=== PATIENT | male | born 1940 | race Caucasian/White ===

== ENCOUNTER 2016-08-09 17:01 | Emergency (ER) | payer SELFPAY, MEDICARE ==
[2016-08-09] MEDS ORDERED: Zofran 4 MG/2 ML VIAL IV ONE (18:22)
[2016-08-09] MEDS ORDERED: Sodium Chloride 0.9% 1000 ML 1,000 ML IV SCH (18:30)
[2016-08-09] MEDS ORDERED: SUBLIMAZE 100 MCG/2 ML IV ONE (18:30)
[2016-08-09] MEDS ORDERED: Zofran 4 MG/2 ML VIAL ONE (18:39)
[2016-08-09] MEDS ORDERED: SUBLIMAZE 100 MCG/2 ML ONE (18:40)
[2016-08-09] MEDS ORDERED: Sodium Chloride 0.9% 1000 ML 1,000 ML ONE (18:40)
[2016-08-09 18:43] LABS: BASOPHIL % 0.5 % (0.0-0.4); Eosinophil % 3.6 % (0.00-5.0); Granulocytes % 68.5 % (36.0-66.0); Lymphocytes % 21.6 % (24.0-44.0); Mean Cell Volume 89.9 fl (78-100); Mean Corpuscular Hemoglobin 29.2 pg (26-32); Mean Platelet Volume 12.2 fl (6-9.5); Monocytes % 5.8 % (0.0-12.0); Platelet Count 142 K/mm3 (150-450); Red Blood Count 3.38 M/mm3 (4.1-5.6); Red Cell Distribution Width 16.9 % (11.5-14.0); White Blood Count 6.2 K/mm3 (4.0-10.5)
[2016-08-09 19:06] LABS: ALBUMIN 3.3 g/dL (3.4-5.0); ANION GAP 12.3 MEQ/L (5-15); BILIRUBIN,TOTAL 0.2 mg/dL (0.2-1.0); Carbon Dioxide 25.1 mEq/L (21-32); Potassium 5.2 mEq/L (3.5-5.1); Total Protein 6.6 gm/dL (6.4-8.2)
[2016-08-09 19:56] LABS: Bacteria FEW /HPF (NEGATIVE); COMPLETE URINE MICROSCOPIC? YES; Collection Type CLEAN CATCH; WBC 0-2 /HPF (0-5)
--- NOTE | 2016-08-09 19:58 | ERPHSYRPT ---
- History of Present Illness Time Seen by Provider: 08/09/16 17:45 Historian: patient Exam Limitations: clinical condition Patient Subjective Stated Complaint: pt co abd pain diffuse to abd for over a week now, has seen family doc. and was dx with UTI and is on antibotics, no fever,no nausea, bm today Triage Nursing Assessment: pt walked in, alert in no distress, resp easy, skin w /d. abd distended,nontender to touch, Physician History: PATIENT COMPLAINS OF INTERMITTENT ABDOMINAL PAINS FOR MONTHS, DENIES EMESIS, NAUSEA, DIARRHEA, MELENA, FEVER OR URINARY SYMPTOMS. Timing/Duration: week(s) Activities at Onset: none Quality: cramping Abdominal Pain Onset Location: generalized abdomen Pain Radiation: no radiation Severity of Pain-Max: moderate Severity of Pain-Current: moderate Modifying Factors: Improves With: other (PAIN PILLS) Associated Symptoms: denies symptoms Previous symptoms: no prior history Allergies/Adverse Reactions: Iodinated Contrast Media - Oral and [Iodinated Contrast Media - IV Dye] Allergy (Intermediate, Verified 08/09/16 17:37) unknown- hives morphine Allergy (Intermediate, Verified 08/09/16 17:37) confusion and combative hydromorphone HCl [From Dilaudid] Adverse Reaction (Intermediate, Verified 08/09 17:37) confusion and combative oxycodone HCl [From OxyContin] Adverse Reaction (Intermediate, Verified 17:37) confusion/ combative Home Medications: Bimatoprost 0.01% [Lumigan 0.01% 2.5 ml] 2.5 ml OP HS 05/04/15 [History] Finasteride 5 mg [Proscar 5 MG] 5 mg PO DAILY 05/04/15 [History] Insulin Detemir [Levemir] 40 unit SQ QAM 05/04/15 [History] Metformin HCl 1000 mg [Glucophage 1000 MG] 1,000 mg PO BID 05/04/15 [History] Multivitamin/Iron/Folic Acid [Centrum Complete Multivit Tab] 1 each PO DAILY [History] Tamsulosin HCl 0.4 mg [Flomax 0.4 MG] 0.4 mg PO DAILY 05/04/15 [History] Warfarin Sodium 5 mg [Coumadin 5 MG] 12 mg PO UD 05/04/15 [History] Nitroglycerin 0.4 mg Tablet [Nitrostat 0.4 MG Tablet] 0.4 mg SL UD [History] Isosorbide Mononitrate 30 mg [Imdur 30 MG] 30 mg DAILY 08/09/16 [History] Hx Tetanus, Diphtheria Vaccination/Date Given: Yes (unknwon) Hx Influenza Vaccination/Date Given: No Hx Pneumococcal Vaccination/Date Given: No Immunizations Up to Date: Yes - Review of Systems Constitutional: No Fever, No Chills Eyes: No Symptoms Ears, Nose, & Throat: No Symptoms Respiratory: No Cough, No Dyspnea Cardiac: No Symptoms, No Chest Pain, No Edema, No Syncope Abdominal/Gastrointestinal: Abdominal Pain, No Nausea, No Vomiting, No Diarrhea Genitourinary Symptoms: No Symptoms, No Dysuria Musculoskeletal: No Symptoms, No Back Pain, No Neck Pain Skin: No Symptoms, No Rash Neurological: No Dizziness, No Focal Weakness, No Sensory Changes Psychological: No Symptoms Endocrine: No Symptoms All Other Systems: Reviewed and Negative - Past Medical History Pertinent Past Medical History: Yes Neurological History: Migraines ENT History: Cataracts, Glaucoma Cardiac History: Angina, Coronary Artery Disease, High Cholesterol, Hypertension , Myocardial Infarction ([place]), Peripheral Vascular Disease Respiratory History: Asthma Endocrine Medical History: Diabetes Type II Musculoskeletal History: Arthritis GI Medical History: GERD, Gallbladder Disease History: Other Psycho-Social History: Depression Male Reproductive Disorders: Prostate Problems Other Medical History: skin cancer. anemia - Past Surgical History Past Surgical History: Yes Neuro Surgical History: No Pertinent History Cardiac: CABG, Cardiac Catheterization, Cardiac Stent Respiratory: No Pertinent History Gastrointestinal: Appendectomy, Cholecystectomy Musculoskeletal: Orthopedic Surgery Male Surgical History: No Pertinent History Other Surgical History: back surgery. fem pop. steriod injection yesterday 11/18 - Social History Smoking Status: Former smoker How long have you smoked: 1975 Exposure to second hand smoke: No Drug Use: none Patient Lives Alone: Yes - Nursing Vital Signs Nursing Vital Signs: Initial Vital Signs Temperature 98.0 F Temperature Source Oral Pulse Rate 52 Respiratory Rate 16 Blood Pressure [] 150/70 Pain Intensity 0 - Physical Exam General Appearance: no apparent distress, alert Eye Exam: PERRL/EOMI, eyes nml inspection Ears, Nose, Throat Exam: normal ENT inspection, pharynx normal, moist mucous membranes Neck Exam: normal inspection, non-tender, supple, full range of motion Respiratory Exam: normal breath sounds, lungs clear, No respiratory distress Cardiovascular Exam: regular rate/rhythm, normal heart sounds Gastrointestinal/Abdomen Exam: soft, normal bowel sounds, tenderness (MILD PERIUMBILICAL TENDERNESS), other (NO GUARDING OR REBOUND TENDERNESS), No mass Back Exam: normal inspection, normal range of motion, No CVA tenderness, No vertebral tenderness Extremity Exam: normal inspection, normal range of motion, pelvis stable Neurologic Exam: alert, oriented x 3, cooperative, normal mood/affect, nml cerebellar function, sensation nml, No motor deficits Skin Exam: normal color, warm, dry SpO2 Interpretation: normal SpO2: 94 Oxygen Delivery: Room Air - CT Exams Abdomen/Pelvis CT Interpretation: Discussed w/radiologist (MODERATE FECAL STASIS, WITHOUT OBSTRUCTION, BILATERAL RENAL CYSTS,REMAINING EXAM NEGATIVE) Ordered Tests: Active Orders 24 hr Category Date Time Status IV Insertion STAT Care 08/09/16 18:22 Active ABDOMEN AND PELVIS W/0 CONTRAS [CT] Stat Exams 08/09/16 18:22 Taken AMYLASE Stat Lab 08/09/16 18:35 Completed BLOOD CULTURE Stat Lab 08/09/16 18:30 Received CBC W DIFF Stat Lab 08/09/16 18:35 Completed CMP Stat Lab 08/09/16 18:35 Completed LIPASE Stat Lab 08/09/16 18:35 Completed UA W/ MICROSCOPIC Stat Lab 08/09/16 19:27 Completed Medication Summary Generic Name Dose Route Start Last Admin Trade Name Freq PRN Reason Stop Dose Admin Sodium Chloride 1,000 mls @ 100 mls/hr 08/09/16 18:30 08/09/16 18:40 Sodium Chloride 0.9% 1000 Ml IV 09/08/16 18:29 100 mls/hr .Q10H RUTH Administration Discontinued Medications Generic Name Dose Route Start Last Admin Trade Name Freq PRN Reason Stop Dose Admin Fentanyl Citrate 100 mcg 08/09/16 18:30 08/09/16 18:40 Sublimaze 100 Mcg/2 Ml IV 08/09/16 18:31 100 mcg STAT ONE Administration Fentanyl Citrate Confirm 08/09/16 18:40 Sublimaze 100 Mcg/2 Ml Administered 08/09/16 18:41 Dose 100 mcg .ROUTE .STK-MED ONE Sodium Chloride Confirm 08/09/16 18:40 Sodium Chloride 0.9% 1000 Ml Administered 08/09/16 18:41 Dose 1,000 mls @ ud .ROUTE .STK-MED ONE Ondansetron HCl 4 mg 08/09/16 18:22 08/09/16 18:40 Zofran 4 Mg/2 Ml Vial IV 08/09/16 18:23 4 mg STAT ONE Administration Ondansetron HCl Confirm 08/09/16 18:39 Zofran 4 Mg/2 Ml Vial Administered 08/09/16 18:40 Dose 4 mg .ROUTE .STK-MED ONE Lab/Rad Data: Laboratory Result Diagrams 08/09/16 18:35 08/09/16 18:35 Laboratory Results 08/09/16 08/09/16 08/09/16 Range/Units 19:27 18:35 18:35 WBC 6.2 (4.0-10.5) K/mm3 RBC 3.38 L (4.1-5.6) M/mm3 Hgb 9.9 L (12.5-18.0) gm/dl Hct 30.4 L (42-50) % MCV 89.9 (78-100) fl MCH 29.2 (26-32) pg MCHC 32.6 (32-36) g/dl RDW 16.9 H (11.5-14.0) % Plt Count 142 L (150-450) K/mm3 MPV 12.2 H (6-9.5) fl Gran % 68.5 H (36.0-66.0) % Lymphocytes % 21.6 L (24.0-44.0) % Monocytes % 5.8 (0.0-12.0) % Eosinophils % 3.6 (0.00-5.0) % Basophils % 0.5 (0.0-0.4) % Basophils # 0.03 (0-0.4) Sodium 139 (136-145) mEq/L Potassium 5.2 H (3.5-5.1) mEq/L Chloride 107 (98-107) mEq/L Carbon Dioxide 25.1 (21-32) mEq/L Anion Gap 12.3 (5-15) MEQ/L BUN 30 H (9-20) mg/dL Creatinine 1.51 H (0.55-1.30) mg/dl Estimated GFR 48 ML/MIN Glucose 217 H (70-110) MG/DL Calcium 9.0 (8.5-10.1) mg/dL Total Bilirubin 0.2 (0.2-1.0) mg/dL AST 22 (15-37) U/L ALT 22 (12-78) U/L Alkaline Phosphatase 41 L (46-116) U/L Serum Total Protein 6.6 (6.4-8.2) gm/dL Albumin 3.3 L (3.4-5.0) g/dL Amylase 48 (25-115) U/L Lipase 179 (73-393) U/L Ur Collection Type CLEAN CATCH Urine Color YELLOW (YELLOW) Urine Appearance CLEAR (CLEAR) Urine pH 7.0 (5-6) Ur Specific Sulphur 1.015 (1.005-1.025) Urine Protein TRACE (Negative) Urine Glucose (UA) 100 (NEGATIVE) mg/dL Urine Ketones NEGATIVE (NEGATIVE) Urine Nitrite NEGATIVE (NEGATIVE) Urine Bilirubin NEGATIVE (NEGATIVE) Urine Urobilinogen 0.2 (0-1) mg/dL Urine WBC (Auto) NEGATIVE (NEGATIVE) Urine RBC (Auto) TRACE-INTACT (0-5) Saw/ul Urine Microscopic RBC 2-5 (0-2) /HPF Urine Microscopic WBC 0-2 (0-5) /HPF Urine Bacteria FEW (NEGATIVE) /HPF Specimen Received 08/09/16 1930 - Progress Progress: improved Progress Note: 08/09/16 20:51 PATIENT GIVEN IV FLUIDS, NORMAL SALINE 200ML/HR, ZOFRAN 4MG, PROTONIX 40MG IV AND FENTANYL 0.1MG IV Counseled pt/family regarding: lab results, diagnosis, need for follow-up, rad results - Departure Time of Disposition: 21:00 Departure Disposition: Home Clinical Impression: CHRONIC ABDOMINAL PAIN Condition: Stable Critical Care Time: No Critical Care Time(excluding separately billable procedures): 30-74 minutes Additional Instructions: CONTINUE NEXIUM AND ALL CURRENT MEDICATIONS PRESCRIBED. FOLLOWUP WITH YOUR FAMILY PHYSICIAN FOR EVALUATION IN 1 WEEK.
[2016-08-09 21:17] VITALS: BP 129/70; PULSE 70; O2SAT 100
--- NOTE | 2016-08-10 08:47 | XRAY ---
Indication: Abdominal pain for one week. Multiple contiguous axial images obtained through the abdomen and pelvis without contrast as ordered. Comparison: None. Lung bases demonstrates mild bibasilar dependent atelectasis and left base calcified granulomas. Heart is not enlarged. Noncontrasted stomach and bowel loops appear nonobstructed. There is moderate scattered colonic fecal debris throughout. Previous appendectomy and cholecystectomy reported. No free fluid/air. Scattered calcified splenic granulomas. A few bilateral renal cysts, largest in the left lower pole measuring 1.8 cm. Remaining liver, pancreas, spleen, adrenal glands, kidneys, ureters, and bladder appear unremarkable for noncontrast exam. Moderate aortoiliac calcifications without AAA. Visualized osseous structures intact with previous L5-S1 fusion surgery with intact posterior spinal hardware and grade 2 spondylolisthesis. Small bilateral fatty inguinal hernias. Impression: 1. Fecal stasis without obstruction. 2. No acute intra-abdominal/pelvic abnormalities on this noncontrast exam. 3. Incidental bilateral renal cysts, bilateral fatty inguinal hernias, and evidence for old granulomatous disease. CT DI 22.97
== END 2016-08-09 21:17 | disposition home or self-care (01) ==
LOC: ED 17:01
DX: R10.9 Unspecified abdominal pain (principal); G89.29 Other chronic pain; Z79.899 Other long term (current) drug therapy; Z79.01 Long term (current) use of anticoagulants; Z79.84 Long term (current) use of oral hypoglycemic drugs; E78.00 Pure hypercholesterolemia, unspecified; I10 Essential (primary) hypertension; I25.2 Old myocardial infarction
CPT/HCPCS: 36000; 36415; 74176; 80053; 81000; 82150; 83690; 85025; 87040; 96360; 96361; 96374; 96375; 99284; J2405; J3010

== ENCOUNTER 2018-08-26 08:44 | Observation (INO) | payer MEDICARE, SELFPAY ==
--- NOTE | 2018-08-26 09:40 | ERPHSYRPT ---
- History of Present Illness Time Seen by Provider: 08/26/18 09:35 Source: patient, family Exam Limitations: no limitations Patient Subjective Stated Complaint: states has not been feeling well x 3 days.. cough. low grade fever. generalized pain. states not been thinking right Triage Nursing Assessment: alert and oriented. no obvious confusion. congested cough with non productive cough. abdomen soft. denies GI or urinary problems. Physician History: 78-year-old white male sent from [facility]. Patient apparently brought to [facility] by the patient's family with complaint that the patient has been complaining of cough congestion pain in his upper legs patient apparently not felt to be tracking well by his family and thought he was confused. Patient will arrives he is alert he is oriented to August 2018 he's not sure the day he is oriented to himself and [facility]. He states he's been having a cough congestion last few days complaining of aching in the upper portion of the lower extremities. He has not had a fever no nausea no vomiting. Past medical history includes migraines, cataracts, glaucoma, angina, coronary artery disease, hyperlipidemia, high blood pressure, MA, peripheral vascular disease, asthma, diabetes type 2, arthritis, gallbladder disease, depression, prostate problems Past surgical history includes CABG, cardiac catheter, cardiac stent, appendectomy, cholecystectomy, orthopedic surgery, back surgery, Social history former smoker Timing/Duration: day(s) (3 days) Severity: moderate Modifying Factors: Improves With: nothing. Worsens With: cold therapy, eating, immobilization, medication, movement, rest, acetaminophen, ibuprofen Associated Symptoms: shortness of breath, cough, malaise, other (family states patient has been confused past several days.), No nausea, No vomiting, No abdominal pain, No heartburn, No diaphoresis, No chest pain, No fever, No headaches, No loss of appetite, No rash, No syncope, No seizure, No weakness Allergies/Adverse Reactions: Iodinated Contrast- Oral and IV Dye [Iodinated Contrast Media - IV Dye] Allergy (Intermediate, Verified 08/26/18 09:30) unknown- hives morphine Allergy (Intermediate, Verified 08/26/18 09:30) confusion and combative hydromorphone HCl [From Dilaudid] Adverse Reaction (Intermediate, Verified 08/26 09:30) confusion and combative oxycodone HCl [From OxyContin] Adverse Reaction (Intermediate, Verified 09:30) confusion/ combative Home Medications: Bimatoprost 0.01% [Lumigan 0.01% 2.5 ml] 2.5 ml OP HS 05/04/15 [History] Finasteride 5 mg [Proscar 5 MG] 5 mg PO DAILY 05/04/15 [History] Insulin Detemir [Levemir] 40 unit SQ QAM 05/04/15 [History] Metformin HCl 1000 mg [Glucophage 1000 MG] 1,000 mg PO BID 05/04/15 [History] Multivitamin/Iron/Folic Acid [Centrum Complete Multivit Tab] 1 each PO DAILY [History] Tamsulosin HCl 0.4 mg [Flomax 0.4 MG] 0.4 mg PO DAILY 05/04/15 [History] Warfarin Sodium 5 mg [Coumadin 5 MG] 12 mg PO UD 05/04/15 [History] Nitroglycerin 0.4 mg Tablet [Nitrostat 0.4 MG Tablet] 0.4 mg SL UD [History] Isosorbide Mononitrate 30 mg [Imdur 30 MG] 30 mg DAILY 08/09/16 [History] Hx Tetanus, Diphtheria Vaccination/Date Given: Yes (unknwon) Hx Influenza Vaccination/Date Given: Yes Hx Pneumococcal Vaccination/Date Given: Yes - Review of Systems Constitutional: Malaise, No Fever, No Chills, No Fatigue, No Lethargy, No Night Sweats, No Weakness Eyes: No Symptoms Ears, Nose, & Throat: Nose Congestion, No Ear Pain, No Ear Discharge, No Hearing Changes, No Tinnitus, No Nose Pain, No Nose Discharge, No Sinus Drainage , No Epistaxis, No Mouth Pain, No Mouth Swelling, No Loose Teeth, No Throat Pain , No Throat Swelling, No Hoarse, No Painful Swallowing, No Snoring, No Stridor Respiratory: Cough, Dyspnea, No Cyanosis, No Dyspnea on Exertion (HAYSE), No Stridor, No Wheezing Cardiac: No Chest Pain, No Edema, No Syncope Abdominal/Gastrointestinal: No Abdominal Pain, No Nausea, No Vomiting, No Diarrhea Genitourinary Symptoms: No Dysuria Musculoskeletal: Other (aching upper portion lower extremities past few days) Skin: No Rash Neurological: Other (family states confused past few days), No Dizziness, No Focal Weakness, No Gait Changes, No Headache, No Irritability, No Lethargy, No Paralysis, No Seizure, No Sensory Changes, No Speech Changes, No Tics, No Tremors, No Vertigo Psychological: No Symptoms Endocrine: No Symptoms All Other Systems: Reviewed and Negative - Past Medical History Pertinent Past Medical History: Yes Neurological History: Migraines ENT History: Cataracts, Glaucoma Cardiac History: Angina, Coronary Artery Disease, High Cholesterol, Hypertension , Myocardial Infarction (MA), Peripheral Vascular Disease Respiratory History: Asthma Endocrine Medical History: Diabetes Type II Musculoskeletal History: Arthritis GI Medical History: GERD, Gallbladder Disease History: Other Psycho-Social History: Depression Male Reproductive Disorders: Prostate Problems Other Medical History: skin cancer. anemia - Past Surgical History Past Surgical History: Yes Neuro Surgical History: No Pertinent History Cardiac: CABG, Cardiac Catheterization, Cardiac Stent Respiratory: No Pertinent History Gastrointestinal: Appendectomy, Cholecystectomy Musculoskeletal: Orthopedic Surgery Male Surgical History: No Pertinent History Other Surgical History: back surgery. fem pop. steriod injection yesterday 11/18 - Social History Smoking Status: Never smoker How long have you smoked: 1975 Exposure to second hand smoke: No Drug Use: none Patient Lives Alone: No - Nursing Vital Signs Nursing Vital Signs: Initial Vital Signs Temperature 98.9 F 08/26/18 09:23 Pulse Rate 84 08/26/18 09:23 Respiratory Rate 18 08/26/18 09:23 Blood Pressure 159/58 08/26/18 09:23 O2 Sat by Pulse Oximetry 98 08/26/18 09:23 Pain Scale Pain Intensity 3 - Physical Exam General Appearance: no apparent distress, alert, other (well-developed white male, alert oriented to person place month and year) Eye Exam: PERRL/EOMI, eyes nml inspection Ears, Nose, Throat Exam: normal ENT inspection, TMs normal, pharynx normal, moist mucous membranes Neck Exam: normal inspection, non-tender, supple, full range of motion Respiratory Exam: normal breath sounds, lungs clear, No respiratory distress Cardiovascular Exam: regular rate/rhythm, normal heart sounds, normal peripheral pulses, capillary refill <2 sec Gastrointestinal/Abdomen Exam: soft, normal bowel sounds, No tenderness, No mass Back Exam: normal inspection, normal range of motion, No CVA tenderness, No vertebral tenderness Extremity Exam: normal inspection, normal range of motion, pelvis stable Neurologic Exam: alert, oriented x 3, cooperative, technical support 1 software engineer II-XII nml as tested, normal mood/affect, nml cerebellar function, nml station & gait, sensation nml, No motor deficits Skin Exam: normal color, warm, dry, No rash Lymphatic Exam: No adenopathy SpO2 Interpretation: normal (98%) SpO2: 98 - Course Nursing assessment & vital signs reviewed: Yes EKG Interpreted by Me: RATE (79 bpm), Sinus Rhythm, NORMAL AXIS, Right Bundle Branch Block, Other (EKG: Sinus rhythm, 79 bpm, normal axis, complete right bundle branch block, no acute ST or T wavechanges. Compared to May 05, 2015 ) - Radiology Exams Chest X-ray Interpretation: Interpreted by me (right lower lobe atelectectasis vs pneumonia.) - CT Exams Head CT Interpretation: Tele-radiologist Report (head CT: Impression: No acute findings.) Ordered Tests: Active Orders 24 hr Category Date Time Status Probation Officer STAT Care 08/26/18 09:33 Active EKG-ER Only STAT Care 08/26/18 09:32 Active IV Insertion STAT Care 08/26/18 09:32 Active Pulse Oximetry (ED) STAT Care 08/26/18 09:32 Active CHEST 1 VIEW (PORTABLE) Stat Exams 08/26/18 09:33 Taken HEAD WITHOUT CONTRAST [CT] Stat Exams 08/26/18 09:34 Taken BLOOD CULTURE Stat Lab 08/26/18 09:50 Received CBC W DIFF Stat Lab 08/26/18 09:45 Completed CMP Stat Lab 08/26/18 09:45 Completed CULTURE,SPUTUM Stat Lab 08/26/18 09:32 Uncollected D-DIMER QUANTITATION Stat Lab 08/26/18 09:45 Completed Lactic Acid Stat Lab 08/26/18 09:32 Completed NT PRO BNP Stat Lab 08/26/18 09:45 Completed PROTIME WITH INR Stat Lab 08/26/18 09:45 Completed PTT Stat Lab 08/26/18 09:45 Completed TROPONIN Q3H Lab 08/26/18 09:45 Completed TROPONIN Q3H Lab 08/26/18 12:45 Ordered TROPONIN Q3H Lab 08/26/18 15:45 Ordered TROPONIN Q3H Lab 08/26/18 18:45 Ordered TROPONIN Q3H Lab 08/26/18 21:45 Ordered UA W/RFX UR CULTURE Stat Lab 08/26/18 11:00 Completed VENOUS BLOOD GAS Stat Lab 08/26/18 09:32 Completed Transfer Order Routine Transfer 08/26/18 Ordered Medication Summary Generic Name Dose Route Start Last Admin Trade Name Freq PRN Reason Stop Dose Admin Sodium Chloride 1,000 mls @ 100 mls/hr 08/26/18 09:45 08/26/18 09:57 Sodium Chloride 0.9% 1000 Ml IV 09/25/18 09:44 100 mls/hr .Q10H RUTH Administration Discontinued Medications Generic Name Dose Route Start Last Admin Trade Name Freq PRN Reason Stop Dose Admin Ceftriaxone Sodium/Dextrose 1 g in 50 mls @ 100 mls/hr 08/26/18 11:02 11:13 Rocephin 1 Gm-D5w 50 Ml Bag IV 08/26/18 11:31 100 ml/hr STAT STA 100 mls/hr Administration Ceftriaxone Sodium/Dextrose Confirm 08/26/18 11:09 Rocephin 1 Gm-D5w 50 Ml Bag Administered 08/26/18 11:10 Dose 1 g in 50 mls @ ud IV .STK-MED ONE Lab/Rad Data: Laboratory Result Diagrams 08/26/18 09:45 08/26/18 09:45 Laboratory Results 08/26/18 08/26/18 08/26/18 Range/Units 11:00 09:50 09:45 WBC (4.0-10.5) K/mm3 RBC (4.1-5.6) M/mm3 Hgb (12.5-18.0) gm/dl Hct (42-50) % MCV (78-100) fl MCH (26-32) pg MCHC (32-36) g/dl RDW (11.5-14.0) % Plt Count (150-450) K/mm3 MPV (6-9.5) fl Gran % (36.0-66.0) % Eos # (Auto) (0-0.5) Absolute Lymphs (auto) (1.0-4.6) Absolute Monos (auto) (0.0-1.3) Lymphocytes % (24.0-44.0) % Monocytes % (0.0-12.0) % Eosinophils % (0.00-5.0) % Basophils % (0.0-0.4) % Absolute Granulocytes (1.4-6.9) Basophils # (0-0.4) PT (8.83-12.87) SECONDS INR (0.8-3.0) APTT (24.1-36.1) SECONDS D-Dimer (215-500) ng/mL pO2/FiO2 Ratio % VBG pH (7.32-7.42) VBG pCO2 at Pat Temp (42-55) mm/Hg VBG pO2 at Pat Temp (25-40) mm/Hg VBG HCO3 (22-28) meq/L VBG O2 Sat (Val) (95-100) VBG Base Excess (-2.0-2.0) VBG Hemoglobin VBG Carboxyhemoglobin (0.0-6.9) % T HGB POC Potassium (3.5-5.1) Sodium (137-145) mmol/L Potassium (3.5-5.1) mmol/L Chloride (98-107) mmol/L Carbon Dioxide (22-30) mmol/L Anion Gap (5-15) MEQ/L BUN (9-20) mg/dL Creatinine (0.66-1.25) mg/dL Estimated GFR ML/MIN Glucose (74-106) mg/dL Lactic Acid (0.4-2.0) Calcium (8.4-10.2) mg/dL Total Bilirubin (0.2-1.3) mg/dL AST (17-59) U/L ALT (0-50) U/L Alkaline Phosphatase (38-126) U/L Troponin I < 0.012 (0.000-0.034) ng/mL NT-Pro-B Natriuret Pep (0-1800) pg/mL Serum Total Protein (6.3-8.2) g/dL Albumin (3.5-5.0) g/dL Urine Color YELLOW (YELLOW) Urine Appearance CLEAR (CLEAR) Urine pH 7.0 (5-6) Ur Specific [place] 1.014 (1.005-1.025) Urine Protein 100 (Negative) Urine Ketones NEGATIVE (NEGATIVE) Urine Blood NEGATIVE (0-5) Saw/ul Urine Nitrite NEGATIVE (NEGATIVE) Urine Bilirubin NEGATIVE (NEGATIVE) Urine Urobilinogen NEGATIVE (0-1) mg/dL Ur Leukocyte Esterase NEGATIVE (NEGATIVE) Urine WBC (Auto) NONE (0-5) /HPF Urine RBC (Auto) 0-2 (0-2) /HPF U Epithel Cells (Auto) NONE (FEW) /HPF Urine Bacteria (Auto) NONE (NEGATIVE) /HPF Urine Culture Reflexed NO (NO) Urine Glucose 150 (NEGATIVE) mg/dL Influenza Type A Ag NEGATIVE (NEGATIVE) Influenza Type B Ag NEGATIVE (NEGATIVE) RSV (PCR) NEGATIVE (Negative) 08/26/18 08/26/18 08/26/18 Range/Units 09:45 09:45 09:45 WBC 11.3 H (4.0-10.5) K/mm3 RBC 3.55 L (4.1-5.6) M/mm3 Hgb 10.4 L (12.5-18.0) gm/dl Hct 32.6 L (42-50) % MCV 91.8 (78-100) fl MCH 29.2 (26-32) pg MCHC 31.9 L (32-36) g/dl RDW 15.1 H (11.5-14.0) % Plt Count 146 L (150-450) K/mm3 MPV 12.3 H (6-9.5) fl Gran % 86.6 H (36.0-66.0) % Eos # (Auto) 0.13 (0-0.5) Absolute Lymphs (auto) 0.85 L (1.0-4.6) Absolute Monos (auto) 0.49 (0.0-1.3) Lymphocytes % 7.6 L (24.0-44.0) % Monocytes % 4.4 (0.0-12.0) % Eosinophils % 1.2 (0.00-5.0) % Basophils % 0.2 (0.0-0.4) % Absolute Granulocytes 9.76 H (1.4-6.9) Basophils # 0.02 (0-0.4) PT 38.9 H (8.83-12.87) SECONDS INR 3.30 H (0.8-3.0) APTT 41.2 H (24.1-36.1) SECONDS D-Dimer < 215 L (215-500) ng/mL pO2/FiO2 Ratio % VBG pH (7.32-7.42) VBG pCO2 at Pat Temp (42-55) mm/Hg VBG pO2 at Pat Temp (25-40) mm/Hg VBG HCO3 (22-28) meq/L VBG O2 Sat (Val) (95-100) VBG Base Excess (-2.0-2.0) VBG Hemoglobin VBG Carboxyhemoglobin (0.0-6.9) % T HGB POC Potassium (3.5-5.1) Sodium 139 (137-145) mmol/L Potassium 5.9 H (3.5-5.1) mmol/L Chloride 105 (98-107) mmol/L Carbon Dioxide 25 (22-30) mmol/L Anion Gap 13.9 (5-15) MEQ/L BUN 27 H (9-20) mg/dL Creatinine 1.80 H (0.66-1.25) mg/dL Estimated GFR 39.1 ML/MIN Glucose 291 H (74-106) mg/dL Lactic Acid (0.4-2.0) Calcium 9.2 (8.4-10.2) mg/dL Total Bilirubin 0.60 (0.2-1.3) mg/dL AST 22 (17-59) U/L ALT 20 (0-50) U/L Alkaline Phosphatase 56 (38-126) U/L Troponin I (0.000-0.034) ng/mL NT-Pro-B Natriuret Pep 590 (0-1800) pg/mL Serum Total Protein 7.2 (6.3-8.2) g/dL Albumin 4.1 (3.5-5.0) g/dL Urine Color (YELLOW) Urine Appearance (CLEAR) Urine pH (5-6) Ur Specific [place] (1.005-1.025) Urine Protein (Negative) Urine Ketones (NEGATIVE) Urine Blood (0-5) Saw/ul Urine Nitrite (NEGATIVE) Urine Bilirubin (NEGATIVE) Urine Urobilinogen (0-1) mg/dL Ur Leukocyte Esterase (NEGATIVE) Urine WBC (Auto) (0-5) /HPF Urine RBC (Auto) (0-2) /HPF U Epithel Cells (Auto) (FEW) /HPF Urine Bacteria (Auto) (NEGATIVE) /HPF Urine Culture Reflexed (NO) Urine Glucose (NEGATIVE) mg/dL Influenza Type A Ag (NEGATIVE) Influenza Type B Ag (NEGATIVE) RSV (PCR) (Negative) 08/26/18 Range/Units 09:32 WBC (4.0-10.5) K/mm3 RBC (4.1-5.6) M/mm3 Hgb (12.5-18.0) gm/dl Hct (42-50) % MCV (78-100) fl MCH (26-32) pg MCHC (32-36) g/dl RDW (11.5-14.0) % Plt Count (150-450) K/mm3 MPV (6-9.5) fl Gran % (36.0-66.0) % Eos # (Auto) (0-0.5) Absolute Lymphs (auto) (1.0-4.6) Absolute Monos (auto) (0.0-1.3) Lymphocytes % (24.0-44.0) % Monocytes % (0.0-12.0) % Eosinophils % (0.00-5.0) % Basophils % (0.0-0.4) % Absolute Granulocytes (1.4-6.9) Basophils # (0-0.4) PT (8.83-12.87) SECONDS INR (0.8-3.0) APTT (24.1-36.1) SECONDS D-Dimer (215-500) ng/mL pO2/FiO2 Ratio 21.0 % VBG pH 7.36 (7.32-7.42) VBG pCO2 at Pat Temp 42 (42-55) mm/Hg VBG pO2 at Pat Temp 32 (25-40) mm/Hg VBG HCO3 23.7 (22-28) meq/L VBG O2 Sat (Val) 69.0 L (95-100) VBG Base Excess -1.7 (-2.0-2.0) VBG Hemoglobin 11.4 VBG Carboxyhemoglobin 1.9 (0.0-6.9) % T HGB POC Potassium 5.8 H (3.5-5.1) Sodium (137-145) mmol/L Potassium (3.5-5.1) mmol/L Chloride (98-107) mmol/L Carbon Dioxide (22-30) mmol/L Anion Gap (5-15) MEQ/L BUN (9-20) mg/dL Creatinine (0.66-1.25) mg/dL Estimated GFR ML/MIN Glucose (74-106) mg/dL Lactic Acid 1.3 (0.4-2.0) Calcium (8.4-10.2) mg/dL Total Bilirubin (0.2-1.3) mg/dL AST (17-59) U/L ALT (0-50) U/L Alkaline Phosphatase (38-126) U/L Troponin I (0.000-0.034) ng/mL NT-Pro-B Natriuret Pep (0-1800) pg/mL Serum Total Protein (6.3-8.2) g/dL Albumin (3.5-5.0) g/dL Urine Color (YELLOW) Urine Appearance (CLEAR) Urine pH (5-6) Ur Specific [place] (1.005-1.025) Urine Protein (Negative) Urine Ketones (NEGATIVE) Urine Blood (0-5) Saw/ul Urine Nitrite (NEGATIVE) Urine Bilirubin (NEGATIVE) Urine Urobilinogen (0-1) mg/dL Ur Leukocyte Esterase (NEGATIVE) Urine WBC (Auto) (0-5) /HPF Urine RBC (Auto) (0-2) /HPF U Epithel Cells (Auto) (FEW) /HPF Urine Bacteria (Auto) (NEGATIVE) /HPF Urine Culture Reflexed (NO) Urine Glucose (NEGATIVE) mg/dL Influenza Type A Ag (NEGATIVE) Influenza Type B Ag (NEGATIVE) RSV (PCR) (Negative) - Progress Progress: improved Progress Note: 08/26/18 10:46 78-year-old white male who arrives with complaint of cough can just rodgers confusion bilateral upper leg pain symptoms for 3 days. Patient with stable vital signs, he is oriented to person place and month Patient with EKG which shows a paced rhythm 79 bpm chest x-ray shows right lower lobe atelectasis versus infiltrate Patient with white blood cell 11.3 hemoglobin 10.4 hematocrit 32.6 platelets 146 Patient is on Coumadin patient's d-dimer is less than 215 INR is 3.3. Patient does show sodium of 139 potassium 5.9 chloride 105 bicarbonate 25 BUN 27 creatinine 1.8 glucose 291 CBC white blood cell 11.3 hemoglobin 10.4 hematocrit 32.6 platelets 146 Patient's lactate is 1.3 BNP is within normal limits Troponin less than 0.012 Patient has not as yet provided us with a urine head CT is pending. I've discussed patient's case with Dr. Higgins. Will review patient's head CT when it is available,. Dr. Higgins has asked that we obtain a urine and then begin the patient on IV antibiotics to treat the patient for pneumonia continue IV normal saline. Will place patient on medical observation bed telemetry. IV normal saline. And plan on a repeat potassium at 3 PM. Impression 1. confusion 2. Pneumonia 3. Hyperkalemia 08/26/18 11:09 Patient will be placed on Rocephin for his pneumonia. Zithromax is held at this time secondary to patient being on Coumadin. - Departure Time of Disposition: 11:41 Departure Disposition: Observation Clinical Impression: Confusion, Hyperkalemia Pneumonia Qualifiers: Pneumonia type: due to unspecified organism Laterality: right Lung location: lower lobe of lung Qualified Code(s): J18.1 - Lobar pneumonia, unspecified organism Condition: Fair Critical Care Time: No Referrals: MICHELLE MISHRA MD [Primary Care Provider] -
[2018-08-26] MEDS ORDERED: Sodium Chloride 0.9% 1000 ML 1,000 ML ONE (09:44)
[2018-08-26 09:48] LABS: Lactic Acid 1.3 (0.4-2.0); VBG BASE EXCESS -1.7 (-2.0-2.0); VBG CARBOXYHEMOGLOBIN 1.9 % T HGB (0.0-6.9); VBG HCO3- 23.7 meq/L (22-28); VBG HEMOGLOBIN 11.4; VBG POTASSIUM 5.8 (3.5-5.1); VBG pH 7.36 (7.32-7.42)
[2018-08-26] MEDS: Sodium Chloride 0.9% 1000 ML 1,000 ML IV SCH ×2 (09:57→20:18)
[2018-08-26 10:05] LABS: BASOPHIL % 0.2 % (0.0-0.4); Basophil (Absolute #) 0.02 (0-0.4); Eosinophil % 1.2 % (0.00-5.0); Eosinophil (Absolute #) 0.13 (0-0.5); Granulocyte Absolute (ANC) 9.76 (1.4-6.9); Granulocytes % 86.6 % (36.0-66.0); Hematocrit 32.6 % (42-50); Hemoglobin 10.4 gm/dl (12.5-18.0); Lymphocyte (Absolute #) 0.85 (1.0-4.6); Lymphocytes % 7.6 % (24.0-44.0); Mean Cell Volume 91.8 fl (78-100); Mean Corpuscular Hgb Concent. 31.9 g/dl (32-36); Mean Platelet Volume 12.3 fl (6-9.5); Monocyte (Absolute #) 0.49 (0.0-1.3); Monocytes % 4.4 % (0.0-12.0); Platelet Count 146 K/mm3 (150-450); Red Blood Count 3.55 M/mm3 (4.1-5.6); Red Cell Distribution Width 15.1 % (11.5-14.0); White Blood Count 11.3 K/mm3 (4.0-10.5)
[2018-08-26 10:17] LABS: PROTIME 38.9 SECONDS (8.83-12.87)
[2018-08-26 10:19] LABS: PTT 41.2 SECONDS (24.1-36.1)
[2018-08-26 10:22] LABS: D-DIMER QUANTITATION < 215 ng/mL (215-500); Mean Corpuscular Hemoglobin 29.2 pg (26-32)
[2018-08-26 10:26] LABS: INFLUENZA A NEGATIVE (NEGATIVE); INFLUENZA B NEGATIVE (NEGATIVE); RESPIRATORY SYNCTIAL VIRUS NEGATIVE (Negative)
[2018-08-26 10:30] LABS: ALBUMIN 4.1 g/dL (3.5-5.0); ANION GAP 13.9 MEQ/L (5-15); BILIRUBIN,TOTAL 0.6 mg/dL (0.2-1.3); Calcium 9.2 mg/dL (8.4-10.2); Creatinine 1 1.8 mg/dL (0.66-1.25); Potassium 5.9 mmol/L (3.5-5.1); Total Protein 7.2 g/dL (6.3-8.2)
[2018-08-26] MEDS ORDERED: ROCEPHIN 1 Gm-D5w 50 ml Bag** 1 G/50 ML IVPB IV STA (11:02)
[2018-08-26] MEDS ORDERED: ROCEPHIN 1 Gm-D5w 50 ml Bag** 1 G/50 ML IVPB IV ONE (11:09)
[2018-08-26 11:23] LABS: Appearance CLEAR (CLEAR); Bilirubin NEGATIVE (NEGATIVE); Blood NEGATIVE Ery/ul (0-5); Glucose 150 mg/dL (NEGATIVE); Ketones NEGATIVE (NEGATIVE); Leukocyte Esterase NEGATIVE (NEGATIVE); Nitrite NEGATIVE (NEGATIVE); Protein,Urine Dip 100 (Negative); RBC 0-2 /HPF (0-2); Specific Gravity 1.014 (1.005-1.025); Urobilinogen NEGATIVE mg/dL (0-1)
[2018-08-26] MEDS ORDERED: DUONEB 0.5-3 MG/3 ml Neb IH PRN (12:22)
[2018-08-26] MEDS ORDERED: Sodium Chloride 0.9% 1000 ML 1,000 ML IV SCH (12:22)
[2018-08-26] MEDS: NovoLOG Insulin SQ PRN ×2 (13:32→17:32)
[2018-08-26] MEDS ORDERED: Norco 10/325 MG Tablet PO PRN (15:24)
[2018-08-26] MEDS ORDERED: Nitrostat 0.4 MG Tablet SL PRN (15:30)
[2018-08-26 16:26] LABS: Potassium 4.7 mmol/L (3.5-5.1)
[2018-08-26 16:35] LABS: TROPONIN < 0.012 ng/mL (0.000-0.034)
[2018-08-26] MEDS ORDERED: Coumadin 5 MG PO ONE (18:00)
[2018-08-26] MEDS: Cozaar 50 MG PO SCH (21:21)
[2018-08-26] MEDS: ZOCOR 20MG PO SCH (21:22)
[2018-08-26] MEDS: Neurontin 400 MG PO SCH (21:22)
[2018-08-26] MEDS: hydroDIURIL 25 MG PO SCH (21:22)
[2018-08-26] MEDS: Flomax 0.4 MG PO SCH (21:22)
--- NOTE | 2018-08-26 21:32 | XRAY ---
Indication: Cough and congestion. Comparison: March 24, 2017. Portable chest unchanged again demonstrating mild bibasilar atelectasis/scarring and scattered calcified granulomas. No focal infiltrate, consolidation, or large effusion. Heart and mediastinal structures within normal limits again with CABG surgery. Bony thorax intact again with mild osteopenia and degenerative changes. Impression: Stable nonacute chest with chronic features.
--- NOTE | 2018-08-26 21:34 | XRAY ---
Indication: Confusion. Multiple contiguous axial images obtained through the head without contrast. Comparison: None Images through the base of the brain slightly degraded by motion artifact even with repeat CT. Age-appropriate global atrophy and moderate periventricular degenerative micro-ischemia bilaterally. No acute intracranial hemorrhage, abnormal extra-axial fluid collection, or mass effect. Fourth ventricle is midline without hydrocephalus. Bony calvarium intact. Visualized paranasal sinuses and mastoid air cells are clear. Impression: Motion artifact. Grossly nonacute senile brain. Comment: Preliminary interpretation was made by [facility]. No discrepancy. CTDI 67.22
[2018-08-26] MEDS ORDERED: NON-FORMULARY ITEM (Losartan/Hydrochlorothiazide [Losartan-Hctz 100-25 Mg Tab] 1 EACH) PO SCH (22:00)
[2018-08-26] MEDS ORDERED: NON-FORMULARY ITEM (Gabapentin [Gabapentin] 800 MG) PO SCH (22:00)
[2018-08-26] MEDS ORDERED: NON-FORMULARY ITEM (Atorvastatin Calcium [Atorvastatin Calcium] 40 MG) PO SCH (22:00)
[2018-08-27] MEDS: Sodium Chloride 0.9% 1000 ML 1,000 ML IV SCH ×2 (05:59→16:51)
[2018-08-27 06:03] LABS: BASOPHIL % 0.3 % (0.0-0.4); Basophil (Absolute #) 0.02 (0-0.4); Eosinophil (Absolute #) 0.26 (0-0.5); Granulocyte Absolute (ANC) 4.84 (1.4-6.9); Granulocytes % 74.8 % (36.0-66.0); Hematocrit 32.8 % (42-50); Hemoglobin 10.6 gm/dl (12.5-18.0); Lymphocytes % 13.9 % (24.0-44.0); Mean Cell Volume 91.1 fl (78-100); Mean Corpuscular Hemoglobin 29.4 pg (26-32); Mean Corpuscular Hgb Concent. 32.3 g/dl (32-36); Mean Platelet Volume 12.1 fl (6-9.5); Monocyte (Absolute #) 0.45 (0.0-1.3); Platelet Count 151 K/mm3 (150-450); Red Cell Distribution Width 15.2 % (11.5-14.0); White Blood Count 6.5 K/mm3 (4.0-10.5)
[2018-08-27 06:25] LABS: INR 3.88 (0.8-3.0); PROTIME 45.7 SECONDS (8.83-12.87)
[2018-08-27 06:48] LABS: ALBUMIN 3.6 g/dL (3.5-5.0); ANION GAP 11.7 MEQ/L (5-15); BILIRUBIN,TOTAL 0.5 mg/dL (0.2-1.3); Calcium 9.2 mg/dL (8.4-10.2); Creatinine 1 1.44 mg/dL (0.66-1.25); Potassium 4.7 mmol/L (3.5-5.1); Total Protein 6.5 g/dL (6.3-8.2)
[2018-08-27] MEDS: ROCEPHIN 1 Gm-D5w 50 ml Bag** 1 G/50 ML IVPB IV SCH (09:28)
[2018-08-27] MEDS: Neurontin 400 MG PO SCH ×2 (09:29→22:25)
[2018-08-27] MEDS: Imdur 30 MG PO SCH (09:29)
[2018-08-27] MEDS: FEOSOL 325 MG PO SCH (09:29)
[2018-08-27] MEDS: NORVASC 5 MG PO SCH (09:30)
[2018-08-27] MEDS: PLAVIX 75 MG Tablet PO SCH (09:30)
[2018-08-27] MEDS: Protonix 40MG Tablet PO SCH (09:31)
[2018-08-27] MEDS: Vitamin B-12 500 MCG PO SCH (09:31)
[2018-08-27] MEDS ORDERED: NON-FORMULARY ITEM (Cyanocobalamin (Vitamin B-12) [B-12] 1,000 MCG) PO SCH (10:00)
[2018-08-27] MEDS ORDERED: NON-FORMULARY ITEM (Amlodipine Besylate [Amlodipine Besylate] 10 MG) PO SCH (10:00)
[2018-08-27] MEDS ORDERED: NON-FORMULARY ITEM (Omeprazole [Omeprazole] 40 MG) PO SCH (10:00)
[2018-08-27] MEDS ORDERED: IRON 27 MG PO SCH (10:00)
--- NOTE | 2018-08-27 10:14 | PCM.HP ---
History of Present Illness - Chief Complaint Chief Complaint: early pneumonia History of Present Illness: is a 78 year old male pt of Dr. Pryor with DM, HTN, CAD (s/p CABG and stent), hyperlipidemia, COPD, arthritis and hx [place] who came to ER c/o cough and not feeling well x 4d. Subjective fever. He woke up yesterday and seemed confused so that's when his family brought him in. He was found to have a WBC count of 11.3. D-dimer was negative and chest xr was non acute but he was kept and treated clinically for pneumonia. Today he is feeling much better. He continues to have a cough but is afebrile and is no longer confused. - Review of Systems Constitutional: Fever Respiratory: Cough, Short Of Breath Cardiac: Edema (LLE, chronic) Psychological: No Depression, No Suicidal Ideations Hematologic/Lymphatic: Other (on coumadin and plavix) All Other Systems: Reviewed and Negative Medications & Allergies Home Medications: Home Medication List Bimatoprost 0.01% [Lumigan 0.01% 2.5 ml] 2.5 ml OP 05/04/15 [History Confirmed 08/26/18] Metformin HCl 1000 mg [Glucophage 1000 MG] 1,000 mg PO BID 05/04/15 [History Confirmed 08/26/18] Multivitamin/Iron/Folic Acid [Centrum Complete Multivit Tab] 1 each PO DAILY [History Confirmed 08/26/18] Tamsulosin HCl 0.4 mg [Flomax 0.4 MG] 0.4 mg PO HS 05/04/15 [History Confirmed 08/26/18] Warfarin Sodium 5 mg [Coumadin 5 MG] 12 mg PO UD 05/04/15 [History Confirmed 08/26/18] Nitroglycerin 0.4 mg Tablet [Nitrostat 0.4 MG Tablet] 0.4 mg SL UD [History Confirmed 08/26/18] Isosorbide Mononitrate 30 mg [Imdur 30 MG] 30 mg DAILY 08/09/16 [History Confirmed 08/26/18] Amlodipine Besylate 10 mg PO DAILY 08/26/18 [History Confirmed 08/26/18] Atorvastatin Calcium 40 mg PO HS 08/26/18 [History Confirmed 08/26/18] Clopidogrel Bisulfate 75 mg [PLAVIX 75 MG Tablet] 75 mg PO DAILY 08/26/18 [History Confirmed 08/26/18] Cyanocobalamin (Vitamin B-12) [B-12] 1,000 mcg PO DAILY 08/26/18 [History Confirmed 08/26/18] Gabapentin 800 mg PO BID 08/26/18 [History Confirmed 08/26/18] Hum Insulin NPH/Reg Insulin Hm [Novolin 70-30 100 Unit/ml Vial] 20 unit SQ DAILY 08/26/18 [History Confirmed 08/26/18] Hydrocodone/APAP 10/325 mg [Abie 10/325 MG Tablet] 1 tab PO Q4H PRN PRN 08/26/18 [History Confirmed 08/26/18] Iron 27 mg PO DAILY 08/26/18 [History Confirmed 08/26/18] Losartan/Hydrochlorothiazide [Losartan-Hctz 100-25 mg Tab] 1 each PO HS [History Confirmed 08/26/18] Omeprazole 40 mg PO DAILY 08/26/18 [History Confirmed 08/26/18] Testosterone Cypionate [Testone Cik] 0.5 ml IM WEEKLY 08/26/18 [History Confirmed 08/26/18] Allergies/Adverse Reactions: Allergies Allergy/AdvReac Type Severity Reaction Status Date / Time Iodinated Contrast- Oral and Allergy Intermediate unknown- Verified 08/26/18 09: 30 IV Dye hives [Iodinated Contrast Media - IV Dye] morphine Allergy Intermediate confusion Verified 08/26/18 09:30 and combative hydromorphone HCl AdvReac Intermediate confusion Verified 08/26/18 09:30 [From Dilaudid] and combative oxycodone HCl AdvReac Intermediate confusion/ Verified 08/26/18 09:30 [From OxyContin] combative - Past Medical History Past Medical History: Yes Neurological History: Migraines ENT History: Cataracts, Glaucoma Cardiac History: Angina, Coronary Artery Disease, High Cholesterol, Hypertension , Myocardial Infarction ([place]), Peripheral Vascular Disease Respiratory History: COPD Endocrine Medical History: Diabetes Type II Musculoskelatal History: Arthritis GI Medical History: GERD, Gallbladder Disease History: Other Pyscho-Social History: Depression Male Reproductive Disorders: Prostate Problems Comment: skin cancer. anemia - Past Surgical History Past Surgical History: Yes Neuro Surgical History: No Pertinent History Cardiac History: CABG, Cardiac Catheterization, Cardiac Stent Respiratory Surgery: No Pertinent History GI Surgical History: Appendectomy, Cholecystectomy Musculskeletal Surgical Hx: Orthopedic Surgery Male Surgical History: No Pertinent History Other Surgical History: back surgery. fem pop. steriod injection in various joints - Social History Smoking Status: Former smoker How long have you smoked: 1975 Exposure to second hand smoke: No Alcohol: None Drug Use: none - Physical Exam Vital Signs: Vital Signs - 24 hr Temp Pulse Resp BP Pulse Ox 08/27/18 08:00 18 08/27/18 07:21 98.1 F 75 18 176/76 97 08/27/18 05:03 98.1 F 75 20 172/72 99 08/27/18 00:00 98.9 F 79 18 132/63 98 08/26/18 23:32 73 16 98 08/26/18 20:00 98.2 F 78 16 185/82 98 08/26/18 16:17 84 18 94 L 08/26/18 16:00 98.7 F 82 22 194/86 95 08/26/18 13:39 95 08/26/18 12:22 97.8 F 96 H 20 131/75 95 08/26/18 11:41 98 08/26/18 11:28 81 18 150/70 95 Oxygen-Last 24 hours O2 Percentage 2 Liters = 28% O2 Percentage 2 Liters = 28% O2 Percentage 2 Liters = 28% Oxygen Flowrate (L/min)-RT 2 General Appearance: no apparent distress, alert Neurologic Exam: oriented x 3 (oriented to day of week, month, and year, but thought it was August 23), cooperative Eye Exam: eyes nml inspection Ears, Nose, Throat Exam: moist mucous membranes Neck Exam: normal inspection, non-tender, No lymphadenopathy Respiratory Exam: normal breath sounds, rhonchi (RLL), No crackles/rales, No wheezing Cardiovascular Exam: regular rate/rhythm, normal heart sounds, No murmur Gastrointestinal/Abdomen Exam: soft, normal bowel sounds, No tenderness, No distention, No mass, No guarding, No rebound Back Exam: normal inspection, No rash Extremity Exam: normal inspection, swelling (Trace pretibial edema bilat, L>R) Skin Exam: normal color, warm, dry, No rash Results - Labs Lab/Micro Results: Accuchecks Date 08/27/18 Date 08/26/18 Time 07:30 Time 16:30 Accucheck Value: 238 Accucheck Value: 132 Accucheck Value: 302 Lab Results-Last 24 Hours 08/26/18 08/26/18 08/26/18 Range/Units 09:45 09:45 09:45 WBC 11.3 H (4.0-10.5) K/mm3 RBC 3.55 L (4.1-5.6) M/mm3 Hgb 10.4 L (12.5-18.0) gm/dl Hct 32.6 L (42-50) % MCV 91.8 (78-100) fl MCH 29.2 (26-32) pg MCHC 31.9 L (32-36) g/dl RDW 15.1 H (11.5-14.0) % Plt Count 146 L (150-450) K/mm3 MPV 12.3 H (6-9.5) fl Gran % 86.6 H (36.0-66.0) % Eos # (Auto) 0.13 (0-0.5) Absolute Lymphs (auto) 0.85 L (1.0-4.6) Absolute Monos (auto) 0.49 (0.0-1.3) Lymphocytes % 7.6 L (24.0-44.0) % Monocytes % 4.4 (0.0-12.0) % Eosinophils % 1.2 (0.00-5.0) % Basophils % 0.2 (0.0-0.4) % Absolute Granulocytes 9.76 H (1.4-6.9) Basophils # 0.02 (0-0.4) PT 38.9 H (8.83-12.87) SECONDS INR 3.30 H (0.8-3.0) APTT 41.2 H (24.1-36.1) SECONDS D-Dimer < 215 L (215-500) ng/mL Sodium 139 (137-145) mmol/L Potassium 5.9 H (3.5-5.1) mmol/L Chloride 105 (98-107) mmol/L Carbon Dioxide 25 (22-30) mmol/L Anion Gap 13.9 (5-15) MEQ/L BUN 27 H (9-20) mg/dL Creatinine 1.80 H (0.66-1.25) mg/dL Estimated GFR 39.1 ML/MIN Glucose 291 H (74-106) mg/dL Hemoglobin A1c (4.5-6.0) % Calcium 9.2 (8.4-10.2) mg/dL Total Bilirubin 0.60 (0.2-1.3) mg/dL AST 22 (17-59) U/L ALT 20 (0-50) U/L Alkaline Phosphatase 56 (38-126) U/L Troponin I (0.000-0.034) ng/mL NT-Pro-B Natriuret Pep 590 (0-1800) pg/mL Serum Total Protein 7.2 (6.3-8.2) g/dL Albumin 4.1 (3.5-5.0) g/dL Urine Color (YELLOW) Urine Appearance (CLEAR) Urine pH (5-6) Ur Specific [place] (1.005-1.025) Urine Protein (Negative) Urine Ketones (NEGATIVE) Urine Blood (0-5) Saw/ul Urine Nitrite (NEGATIVE) Urine Bilirubin (NEGATIVE) Urine Urobilinogen (0-1) mg/dL Ur Leukocyte Esterase (NEGATIVE) Urine WBC (Auto) (0-5) /HPF Urine RBC (Auto) (0-2) /HPF U Epithel Cells (Auto) (FEW) /HPF Urine Bacteria (Auto) (NEGATIVE) /HPF Urine Culture Reflexed (NO) Urine Glucose (NEGATIVE) mg/dL Influenza Type A Ag (NEGATIVE) Influenza Type B Ag (NEGATIVE) RSV (PCR) (Negative) 08/26/18 08/26/18 08/26/18 Range/Units 09:45 09:50 10:15 WBC (4.0-10.5) K/mm3 RBC (4.1-5.6) M/mm3 Hgb (12.5-18.0) gm/dl Hct (42-50) % MCV (78-100) fl MCH (26-32) pg MCHC (32-36) g/dl RDW (11.5-14.0) % Plt Count (150-450) K/mm3 MPV (6-9.5) fl Gran % (36.0-66.0) % Eos # (Auto) (0-0.5) Absolute Lymphs (auto) (1.0-4.6) Absolute Monos (auto) (0.0-1.3) Lymphocytes % (24.0-44.0) % Monocytes % (0.0-12.0) % Eosinophils % (0.00-5.0) % Basophils % (0.0-0.4) % Absolute Granulocytes (1.4-6.9) Basophils # (0-0.4) PT (8.83-12.87) SECONDS INR (0.8-3.0) APTT (24.1-36.1) SECONDS D-Dimer (215-500) ng/mL Sodium (137-145) mmol/L Potassium (3.5-5.1) mmol/L Chloride (98-107) mmol/L Carbon Dioxide (22-30) mmol/L Anion Gap (5-15) MEQ/L BUN (9-20) mg/dL Creatinine (0.66-1.25) mg/dL Estimated GFR ML/MIN Glucose (74-106) mg/dL Hemoglobin A1c 7.68 H (4.5-6.0) % Calcium (8.4-10.2) mg/dL Total Bilirubin (0.2-1.3) mg/dL AST (17-59) U/L ALT (0-50) U/L Alkaline Phosphatase (38-126) U/L Troponin I < 0.012 (0.000-0.034) ng/mL NT-Pro-B Natriuret Pep (0-1800) pg/mL Serum Total Protein (6.3-8.2) g/dL Albumin (3.5-5.0) g/dL Urine Color (YELLOW) Urine Appearance (CLEAR) Urine pH (5-6) Ur Specific [place] (1.005-1.025) Urine Protein (Negative) Urine Ketones (NEGATIVE) Urine Blood (0-5) Saw/ul Urine Nitrite (NEGATIVE) Urine Bilirubin (NEGATIVE) Urine Urobilinogen (0-1) mg/dL Ur Leukocyte Esterase (NEGATIVE) Urine WBC (Auto) (0-5) /HPF Urine RBC (Auto) (0-2) /HPF U Epithel Cells (Auto) (FEW) /HPF Urine Bacteria (Auto) (NEGATIVE) /HPF Urine Culture Reflexed (NO) Urine Glucose (NEGATIVE) mg/dL Influenza Type A Ag NEGATIVE (NEGATIVE) Influenza Type B Ag NEGATIVE (NEGATIVE) RSV (PCR) NEGATIVE (Negative) 08/26/18 08/26/18 08/26/18 Range/Units 11:00 12:45 15:10 WBC (4.0-10.5) K/mm3 RBC (4.1-5.6) M/mm3 Hgb (12.5-18.0) gm/dl Hct (42-50) % MCV (78-100) fl MCH (26-32) pg MCHC (32-36) g/dl RDW (11.5-14.0) % Plt Count (150-450) K/mm3 MPV (6-9.5) fl Gran % (36.0-66.0) % Eos # (Auto) (0-0.5) Absolute Lymphs (auto) (1.0-4.6) Absolute Monos (auto) (0.0-1.3) Lymphocytes % (24.0-44.0) % Monocytes % (0.0-12.0) % Eosinophils % (0.00-5.0) % Basophils % (0.0-0.4) % Absolute Granulocytes (1.4-6.9) Basophils # (0-0.4) PT (8.83-12.87) SECONDS INR (0.8-3.0) APTT (24.1-36.1) SECONDS D-Dimer (215-500) ng/mL Sodium (137-145) mmol/L Potassium 4.7 D (3.5-5.1) mmol/L Chloride (98-107) mmol/L Carbon Dioxide (22-30) mmol/L Anion Gap (5-15) MEQ/L BUN (9-20) mg/dL Creatinine (0.66-1.25) mg/dL Estimated GFR ML/MIN Glucose (74-106) mg/dL Hemoglobin A1c (4.5-6.0) % Calcium (8.4-10.2) mg/dL Total Bilirubin (0.2-1.3) mg/dL AST (17-59) U/L ALT (0-50) U/L Alkaline Phosphatase (38-126) U/L Troponin I < 0.012 < 0.012 (0.000-0.034) ng/mL NT-Pro-B Natriuret Pep (0-1800) pg/mL Serum Total Protein (6.3-8.2) g/dL Albumin (3.5-5.0) g/dL Urine Color YELLOW (YELLOW) Urine Appearance CLEAR (CLEAR) Urine pH 7.0 (5-6) Ur Specific [place] 1.014 (1.005-1.025) Urine Protein 100 (Negative) Urine Ketones NEGATIVE (NEGATIVE) Urine Blood NEGATIVE (0-5) Saw/ul Urine Nitrite NEGATIVE (NEGATIVE) Urine Bilirubin NEGATIVE (NEGATIVE) Urine Urobilinogen NEGATIVE (0-1) mg/dL Ur Leukocyte Esterase NEGATIVE (NEGATIVE) Urine WBC (Auto) NONE (0-5) /HPF Urine RBC (Auto) 0-2 (0-2) /HPF U Epithel Cells (Auto) NONE (FEW) /HPF Urine Bacteria (Auto) NONE (NEGATIVE) /HPF Urine Culture Reflexed NO (NO) Urine Glucose 150 (NEGATIVE) mg/dL Influenza Type A Ag (NEGATIVE) Influenza Type B Ag (NEGATIVE) RSV (PCR) (Negative) 08/26/18 08/26/18 08/27/18 Range/Units 19:00 21:45 05:25 WBC 6.5 (4.0-10.5) K/mm3 RBC 3.60 L (4.1-5.6) M/mm3 Hgb 10.6 L (12.5-18.0) gm/dl Hct 32.8 L (42-50) % MCV 91.1 (78-100) fl MCH 29.4 (26-32) pg MCHC 32.3 (32-36) g/dl RDW 15.2 H (11.5-14.0) % Plt Count 151 (150-450) K/mm3 MPV 12.1 H (6-9.5) fl Gran % 74.8 H (36.0-66.0) % Eos # (Auto) 0.26 (0-0.5) Absolute Lymphs (auto) 0.90 L (1.0-4.6) Absolute Monos (auto) 0.45 (0.0-1.3) Lymphocytes % 13.9 L (24.0-44.0) % Monocytes % 7.0 (0.0-12.0) % Eosinophils % 4.0 (0.00-5.0) % Basophils % 0.3 (0.0-0.4) % Absolute Granulocytes 4.84 (1.4-6.9) Basophils # 0.02 (0-0.4) PT (8.83-12.87) SECONDS INR (0.8-3.0) APTT (24.1-36.1) SECONDS D-Dimer (215-500) ng/mL Sodium (137-145) mmol/L Potassium (3.5-5.1) mmol/L Chloride (98-107) mmol/L Carbon Dioxide (22-30) mmol/L Anion Gap (5-15) MEQ/L BUN (9-20) mg/dL Creatinine (0.66-1.25) mg/dL Estimated GFR ML/MIN Glucose (74-106) mg/dL Hemoglobin A1c (4.5-6.0) % Calcium (8.4-10.2) mg/dL Total Bilirubin (0.2-1.3) mg/dL AST (17-59) U/L ALT (0-50) U/L Alkaline Phosphatase (38-126) U/L Troponin I < 0.012 < 0.012 (0.000-0.034) ng/mL NT-Pro-B Natriuret Pep (0-1800) pg/mL Serum Total Protein (6.3-8.2) g/dL Albumin (3.5-5.0) g/dL Urine Color (YELLOW) Urine Appearance (CLEAR) Urine pH (5-6) Ur Specific [place] (1.005-1.025) Urine Protein (Negative) Urine Ketones (NEGATIVE) Urine Blood (0-5) Saw/ul Urine Nitrite (NEGATIVE) Urine Bilirubin (NEGATIVE) Urine Urobilinogen (0-1) mg/dL Ur Leukocyte Esterase (NEGATIVE) Urine WBC (Auto) (0-5) /HPF Urine RBC (Auto) (0-2) /HPF U Epithel Cells (Auto) (FEW) /HPF Urine Bacteria (Auto) (NEGATIVE) /HPF Urine Culture Reflexed (NO) Urine Glucose (NEGATIVE) mg/dL Influenza Type A Ag (NEGATIVE) Influenza Type B Ag (NEGATIVE) RSV (PCR) (Negative) 08/27/18 08/27/18 Range/Units 05:25 05:25 WBC (4.0-10.5) K/mm3 RBC (4.1-5.6) M/mm3 Hgb (12.5-18.0) gm/dl Hct (42-50) % MCV (78-100) fl MCH (26-32) pg MCHC (32-36) g/dl RDW (11.5-14.0) % Plt Count (150-450) K/mm3 MPV (6-9.5) fl Gran % (36.0-66.0) % Eos # (Auto) (0-0.5) Absolute Lymphs (auto) (1.0-4.6) Absolute Monos (auto) (0.0-1.3) Lymphocytes % (24.0-44.0) % Monocytes % (0.0-12.0) % Eosinophils % (0.00-5.0) % Basophils % (0.0-0.4) % Absolute Granulocytes (1.4-6.9) Basophils # (0-0.4) PT 45.7 H (8.83-12.87) SECONDS INR 3.88 H (0.8-3.0) APTT (24.1-36.1) SECONDS D-Dimer (215-500) ng/mL Sodium 141 (137-145) mmol/L Potassium 4.7 (3.5-5.1) mmol/L Chloride 110 H (98-107) mmol/L Carbon Dioxide 24 (22-30) mmol/L Anion Gap 11.7 (5-15) MEQ/L BUN 22 H (9-20) mg/dL Creatinine 1.44 H (0.66-1.25) mg/dL Estimated GFR 50.6 ML/MIN Glucose 192 H (74-106) mg/dL Hemoglobin A1c (4.5-6.0) % Calcium 9.2 (8.4-10.2) mg/dL Total Bilirubin 0.50 (0.2-1.3) mg/dL AST 18 (17-59) U/L ALT 17 (0-50) U/L Alkaline Phosphatase 50 (38-126) U/L Troponin I (0.000-0.034) ng/mL NT-Pro-B Natriuret Pep (0-1800) pg/mL Serum Total Protein 6.5 (6.3-8.2) g/dL Albumin 3.6 (3.5-5.0) g/dL Urine Color (YELLOW) Urine Appearance (CLEAR) Urine pH (5-6) Ur Specific [place] (1.005-1.025) Urine Protein (Negative) Urine Ketones (NEGATIVE) Urine Blood (0-5) Saw/ul Urine Nitrite (NEGATIVE) Urine Bilirubin (NEGATIVE) Urine Urobilinogen (0-1) mg/dL Ur Leukocyte Esterase (NEGATIVE) Urine WBC (Auto) (0-5) /HPF Urine RBC (Auto) (0-2) /HPF U Epithel Cells (Auto) (FEW) /HPF Urine Bacteria (Auto) (NEGATIVE) /HPF Urine Culture Reflexed (NO) Urine Glucose (NEGATIVE) mg/dL Influenza Type A Ag (NEGATIVE) Influenza Type B Ag (NEGATIVE) RSV (PCR) (Negative) Accuchecks Date 08/27/18 Date 08/26/18 Time 07:30 Time 16:30 Accucheck Value: 238 Accucheck Value: 132 Accucheck Value: 302 - Radiology Impressions Radiology Exams & Impressions: Radiology Procedures Category Date Time Status CHEST 1 VIEW (PORTABLE) Stat Exams 08/26/18 09:33 Completed HEAD WITHOUT CONTRAST [CT] Stat Exams 08/26/18 09:34 Completed - Other Procedures and Tests Respiratory Therapy 08/26/18 16:13 Respiratory Therapy Assessment DAILY 08/26/18 16:34 Oxygen Nasal Cannula 2 lpm Assessment/Plan (1) Pneumonia Current Visit: Yes Status: Acute Qualifiers: Pneumonia type: due to unspecified organism Laterality: right Lung location: lower lobe of lung Qualified Code(s): J18.1 - Lobar pneumonia, unspecified organism Assessment & Plan: Feeling much better. On rocephin day #2. no zithromax d/t interaction with coumadin. Code(s): J18.9 - PNEUMONIA, UNSPECIFIED ORGANISM (2) Confusion Current Visit: Yes Status: Resolved Code(s): R41.0 - DISORIENTATION, UNSPECIFIED (3) Hyperkalemia Current Visit: Yes Status: Acute Assessment & Plan: resolved with IV fluids. Initially 5.9, now 4.7. Code(s): E87.5 - HYPERKALEMIA (4) HTN (hypertension) Current Visit: Yes Status: Acute Qualifiers: Hypertension type: essential hypertension Qualified Code(s): I10 - Essential (primary) hypertension Assessment & Plan: Elevated BP to 176 systolic this morning; that was with automatic cuff but on recheck was 184/72. Just gave morning meds and will recheck in 30 min. Code(s): I10 - ESSENTIAL (PRIMARY) HYPERTENSION (5) Elevated INR Current Visit: Yes Status: Acute Assessment & Plan: Was 3.3 yesterday and 3.8 today - will decrease tonight's coumadin dose and continue daily INR. Code(s): R79.1 - ABNORMAL COAGULATION PROFILE (6) Type 2 diabetes mellitus Current Visit: Yes Status: Acute Qualifiers: Diabetes mellitus intermediate frame tender insulin use: without snf use Diabetes mellitus complication status: without complication Qualified Code(s): E11.9 - Type 2 diabetes mellitus without complications
[2018-08-27] MEDS: Novolin 70/30 SQ SCH (10:45)
[2018-08-27] MEDS: THERAGRAN MULTIVITAMIN PO SCH (10:45)
[2018-08-27] MEDS: Pepcid 20 MG PO SCH ×2 (10:45→22:25)
[2018-08-27] MEDS: NovoLOG Insulin SQ PRN ×2 (12:13→16:54)
[2018-08-27] MEDS: Toprol-Xl 25MG Tablets PO SCH (13:47)
[2018-08-27] MEDS ORDERED: APRESOLINE 20 MG/ML INJ IV PRN (16:57)
[2018-08-27] MEDS ORDERED: Coumadin 10 MG PO SCH (18:00)
[2018-08-27] MEDS ORDERED: Coumadin 5 MG PO ONE (18:00)
[2018-08-27] MEDS: Glucophage 500 MG PO SCH (18:13)
[2018-08-27] MEDS ORDERED: LUMIGAN 0.01% 2.5 ML OP SCH (22:00)
[2018-08-27] MEDS: hydroDIURIL 25 MG PO SCH (22:24)
[2018-08-27] MEDS: Cozaar 50 MG PO SCH (22:24)
[2018-08-27] MEDS: Flomax 0.4 MG PO SCH (22:24)
[2018-08-27] MEDS: ZOCOR 20MG PO SCH (22:25)
[2018-08-28] MEDS: Sodium Chloride 0.9% 1000 ML 1,000 ML IV SCH (01:57)
[2018-08-28 06:24] LABS: BASOPHIL % 0.4 % (0.0-0.4); Basophil (Absolute #) 0.03 (0-0.4); Eosinophil % 4.3 % (0.00-5.0); Granulocyte Absolute (ANC) 5.11 (1.4-6.9); Granulocytes % 72.6 % (36.0-66.0); Hematocrit 29.5 % (42-50); Hemoglobin 9.5 gm/dl (12.5-18.0); Mean Cell Volume 91.3 fl (78-100); Mean Corpuscular Hemoglobin 29.4 pg (26-32); Mean Corpuscular Hgb Concent. 32.2 g/dl (32-36); Mean Platelet Volume 12.3 fl (6-9.5); Monocytes % 5.7 % (0.0-12.0); Platelet Count 149 K/mm3 (150-450); Red Blood Count 3.23 M/mm3 (4.1-5.6); Red Cell Distribution Width 14.9 % (11.5-14.0)
[2018-08-28 06:32] LABS: INR 3.59 (0.8-3.0); PROTIME 42.3 SECONDS (8.83-12.87)
[2018-08-28 06:40] LABS: ANION GAP 10.4 MEQ/L (5-15); Calcium 8.8 mg/dL (8.4-10.2); Creatinine 1 1.43 mg/dL (0.66-1.25); Potassium 4.4 mmol/L (3.5-5.1)
[2018-08-28] MEDS: Glucophage 500 MG PO SCH (08:09)
[2018-08-28] MEDS: Novolin 70/30 SQ SCH (08:09)
[2018-08-28] MEDS ORDERED: FOLIC ACID PO SCH (10:00)
[2018-08-28] MEDS ORDERED: MULTIVITAMIN PO SCH (10:00)
[2018-08-28] MEDS ORDERED: IRON PO SCH (10:00)
[2018-08-28] MEDS ORDERED: [UNRECOGNIZED DRUG - OTHER] PO SCH (10:00)
[2018-08-28] MEDS: ROCEPHIN 1 Gm-D5w 50 ml Bag** 1 G/50 ML IVPB IV SCH (10:13)
[2018-08-28] MEDS: Vitamin B-12 500 MCG PO SCH (10:15)
[2018-08-28] MEDS: FEOSOL 325 MG PO SCH (10:15)
[2018-08-28] MEDS: PLAVIX 75 MG Tablet PO SCH (10:15)
[2018-08-28] MEDS: Neurontin 400 MG PO SCH (10:15)
[2018-08-28] MEDS: Protonix 40MG Tablet PO SCH (10:15)
[2018-08-28] MEDS: THERAGRAN MULTIVITAMIN PO SCH (10:15)
[2018-08-28] MEDS: Toprol-Xl 25MG Tablets PO SCH (10:15)
[2018-08-28] MEDS: NORVASC 5 MG PO SCH (10:15)
[2018-08-28] MEDS: Pepcid 20 MG PO SCH (10:16)
[2018-08-28] MEDS: Imdur 30 MG PO SCH (10:16)
[2018-08-28 11:36] VITALS: BP 142/67; PULSE 81; O2SAT 100
--- NOTE | 2018-08-28 13:18 | PCM.DS ---
Discharge Summary Date of Admission: 08/26/18 12:00 Admitting Physician: MICHELLE MISHRA Primary Care Provider: MICHELLE MISHRA Allergies Allergies Iodinated Contrast- Oral and IV Dye [Iodinated Contrast Media - IV Dye] Allergy (Intermediate, Verified 08/26/18 09:30) unknown- hives morphine Allergy (Intermediate, Verified 08/26/18 09:30) confusion and combative hydromorphone HCl [From Dilaudid] Adverse Reaction (Intermediate, Verified 08/26 09:30) confusion and combative oxycodone HCl [From OxyContin] Adverse Reaction (Intermediate, Verified 09:30) confusion/ combative Hospital Summary - Hospital Course Hospital Course: Last Vital Signs Temp 98.1 F 08/28/18 11:34 Pulse 81 08/28/18 11:34 Resp 18 08/28/18 12:00 BP 142/67 08/28/18 11:34 Pulse Ox 100 08/28/18 11:34 Allergies Iodinated Contrast- Oral and IV Dye [Iodinated Contrast Media - IV Dye] Allergy (Intermediate, Verified 08/26/18 09:30) unknown- hives morphine Allergy (Intermediate, Verified 08/26/18 09:30) confusion and combative hydromorphone HCl [From Dilaudid] Adverse Reaction (Intermediate, Verified 08/26 09:30) confusion and combative oxycodone HCl [From OxyContin] Adverse Reaction (Intermediate, Verified 09:30) confusion/ combative Active Medications Hydrocodone Bitart/Acetaminophen ([place] 10/325 Mg Tablet) 1 tab PO Q4H PRN PRN PRN Reason: PAIN Stop: 08/31/18 15:23 Albuterol/Ipratropium (Duoneb 0.5-3 Mg/3 Ml Neb) 3 ml IH Q4HPRN PRN PRN Reason: SHORTNESS OF BREATH/WHEEZING Stop: 09/25/18 12:21 Amlodipine Besylate (Norvasc 5 Mg) 10 mg PO DAILY RUTH Stop: 09/26/18 09:59 Last Admin: 08/28/18 10:15 Dose: 10 mg Bimatoprost (Lumigan 0.01% 2.5 Ml) 0 ml OP HS RUTH Stop: 09/26/18 21:59 Last Admin: 08/27/18 22:24 Dose: 1 ml Clopidogrel Bisulfate (Plavix 75 Mg Tablet) 75 mg PO DAILY RUTH Stop: 09/26/18 09:59 Last Admin: 08/28/18 10:15 Dose: 75 mg Cyanocobalamin (Vitamin B-12 500 Mcg) 1,000 mcg PO DAILY RUTH Stop: 09/26/18 09:59 Last Admin: 08/28/18 10:15 Dose: 1,000 mcg Famotidine (Pepcid 20 Mg) 20 mg PO BID RUTH Stop: 09/26/18 10:29 Last Admin: 08/28/18 10:16 Dose: 20 mg Ferrous Sulfate (Feosol 325 Mg) 325 mg PO DAILY [facility] Stop: 09/26/18 09:59 Last Admin: 08/28/18 10:15 Dose: 325 mg Gabapentin (Neurontin 400 Mg) 800 mg PO BID RUTH Stop: 09/25/18 21:59 Last Admin: 08/28/18 10:15 Dose: 800 mg Hydralazine HCl (Apresoline 20 Mg/Ml Inj) 10 mg IV UD PRN PRN Reason: HYPERTENSION Stop: 09/26/18 16:56 Hydrochlorothiazide (Hydrodiuril 25 Mg) 25 mg PO HS [facility] Stop: 09/25/18 21:59 Last Admin: 08/27/18 22:24 Dose: 25 mg Sodium Chloride (Sodium Chloride 0.9% 1000 Ml) 1,000 mls @ 100 mls/hr IV .Q10H [facility] Stop: 09/25/18 09:44 Last Admin: 08/28/18 01:57 Dose: 100 mls/hr Ceftriaxone Sodium/Dextrose (Rocephin 1 Gm-D5w 50 Ml Bag) 1 g in 50 mls @ 100 mls/hr IV Q24H10 [facility] Stop: 09/26/18 09:59 Last Admin: 08/28/18 10:13 Dose: 100 mls/hr Sodium Chloride (Sodium Chloride 0.9% 1000 Ml) 1,000 mls @ 100 mls/hr IV .Q10H [facility] Stop: 09/25/18 12:21 Last Admin: 08/27/18 11:58 Dose: 100 mls/hr Insulin Aspart (Novolog Insulin) 0 unit SQ UD PRN PRN Reason: HYPERGLYCEMIA Stop: 09/25/18 12:21 Last Admin: 08/27/18 16:54 Dose: 4 unit Insulin Human Isoph/Insulin Regular (Novolin 70/30) 20 unit SQ BREAKFAST RUTH Stop: 09/26/18 10:29 Last Admin: 08/28/18 08:09 Dose: 20 unit Isosorbide Mononitrate (Imdur 30 Mg) 30 mg PO DAILY RUTH Stop: 09/26/18 09:59 Last Admin: 08/28/18 10:16 Dose: 30 mg Losartan Potassium (Cozaar 50 Mg) 100 mg PO HS [facility] Stop: 09/25/18 21:59 Last Admin: 08/27/18 22:24 Dose: 100 mg Metformin HCl (Glucophage 500 Mg) 1,000 mg PO BIDWM [facility] Stop: 09/26/18 18:03 Last Admin: 08/28/18 08:09 Dose: 1,000 mg Metoprolol Succinate (Toprol-Xl 25mg Tablets) 25 mg PO DAILY [facility] Stop: 09/26/18 12:11 Last Admin: 08/28/18 10:15 Dose: 25 mg Multivitamins Therapeutic (Theragran Multivitamin) 1 tab PO DAILY [facility] Stop: 09/26/18 10:29 Last Admin: 08/28/18 10:15 Dose: 1 tab Nitroglycerin (Nitrostat 0.4 Mg Tablet) 0.4 mg SL UD PRN Stop: 09/25/18 15:29 Pantoprazole Sodium (Protonix 40mg Tablet) 40 mg PO DAILY [facility] Stop: 09/26/18 09:59 Last Admin: 08/28/18 10:15 Dose: 40 mg Simvastatin (Zocor 20mg) 40 mg PO HS [facility] Stop: 09/25/18 21:59 Last Admin: 08/27/18 22:25 Dose: 40 mg Tamsulosin HCl (Flomax 0.4 Mg) 0.4 mg PO HS [facility] Stop: 09/25/18 21:59 Last Admin: 08/27/18 22:24 Dose: 0.4 mg Warfarin Sodium (Coumadin 5 Mg) 5 mg PO MoWeFr [facility] Stop: 09/27/18 17:59 Warfarin Sodium (Coumadin 10 Mg) 10 mg PO SuTuThSa [facility] Stop: 09/28/18 17:59 Intake & Output 08/28/18 08/29/18 11:59 11:59 Intake Total 3478 Output Total 2500 Balance 978 Weight 92.4 kg Orders 08/27/18 22:54 BiPap/CPAP ROUTINE Lab Tests 08/28/18 08/28/18 08/28/18 05:19 05:19 05:19 WBC 7.0 RBC 3.23 L Hgb 9.5 L Hct 29.5 L MCV 91.3 MCH 29.4 MCHC 32.2 RDW 14.9 H Plt Count 149 L MPV 12.3 H Gran % 72.6 H Eos # (Auto) 0.30 Absolute Lymphs (auto) 1.20 Absolute Monos (auto) 0.40 Lymphocytes % 17.0 L Monocytes % 5.7 Eosinophils % 4.3 Basophils % 0.4 Absolute Granulocytes 5.11 Basophils # 0.03 PT 42.3 H INR 3.59 H Sodium 140 Potassium 4.4 Chloride 111 H Carbon Dioxide 24 Anion Gap 10.4 BUN 18 Creatinine 1.43 H Estimated GFR 51.0 Glucose 141 H Calcium 8.8 Microbiology 08/26/18 09:50 Blood Blood Culture - Preliminary NO GROWTH TO DATE 08/26/18 09:45 Blood Blood Culture - Preliminary NO GROWTH TO DATE - Vitals & Intake/Output Vital Signs: Vital Signs Temperature 98.1 F 08/28/18 11:34 Pulse Rate 81 08/28/18 11:34 Respiratory Rate 18 08/28/18 12:00 Blood Pressure 142/67 08/28/18 11:34 O2 Sat by Pulse Oximetry 100 08/28/18 11:34 Oxygen-Last Documented O2 Percentage 2 Liters = 28% Intake & Output: Intake & Output 08/26/18 08/27/18 08/28/18 08/29/18 11:59 11:59 11:59 11:59 Intake Total 2934 3478 Output Total 2975 2500 Balance -41 978 Weight 94.347 kg 92.5 kg 92.4 kg - Lab Result Diagrams: 08/28/18 05:19 08/28/18 05:19 Lab Results-Last 24 Hrs: Accuchecks Date 08/28/18 Date 08/28/18 Date 08/27/18 Time 05:00 Time 05:00 Time 16:30 Accucheck Value: 185 Accucheck Value: 326 Lab Results-Last 24 Hours 08/28/18 08/28/18 08/28/18 Range/Units 05:19 05:19 05:19 WBC 7.0 (4.0-10.5) K/mm3 RBC 3.23 L (4.1-5.6) M/mm3 Hgb 9.5 L (12.5-18.0) gm/dl Hct 29.5 L (42-50) % MCV 91.3 (78-100) fl MCH 29.4 (26-32) pg MCHC 32.2 (32-36) g/dl RDW 14.9 H (11.5-14.0) % Plt Count 149 L (150-450) K/mm3 MPV 12.3 H (6-9.5) fl Gran % 72.6 H (36.0-66.0) % Eos # (Auto) 0.30 (0-0.5) Absolute Lymphs (auto) 1.20 (1.0-4.6) Absolute Monos (auto) 0.40 (0.0-1.3) Lymphocytes % 17.0 L (24.0-44.0) % Monocytes % 5.7 (0.0-12.0) % Eosinophils % 4.3 (0.00-5.0) % Basophils % 0.4 (0.0-0.4) % Absolute Granulocytes 5.11 (1.4-6.9) Basophils # 0.03 (0-0.4) PT 42.3 H (8.83-12.87) SECONDS INR 3.59 H (0.8-3.0) Sodium 140 (137-145) mmol/L Potassium 4.4 (3.5-5.1) mmol/L Chloride 111 H (98-107) mmol/L Carbon Dioxide 24 (22-30) mmol/L Anion Gap 10.4 (5-15) MEQ/L BUN 18 (9-20) mg/dL Creatinine 1.43 H (0.66-1.25) mg/dL Estimated GFR 51.0 ML/MIN Glucose 141 H (74-106) mg/dL Calcium 8.8 (8.4-10.2) mg/dL Micro Results-Entire Visit: Microbiology 08/26/18 09:50 Blood Culture - Preliminary Blood NO GROWTH TO DATE 08/26/18 09:45 Blood Culture - Preliminary Blood NO GROWTH TO DATE Accuchecks Date 08/28/18 Date 08/28/18 Date 08/27/18 Time 05:00 Time 05:00 Time 16:30 Accucheck Value: 185 Accucheck Value: 326 - Procedures and Test Procedures and Tests throughout Hospitalization: Therapy Orders & Screens 08/26/18 16:13 Respiratory Therapy Assessment DAILY Comment: Diagnosis: early pneumonia 08/26/18 16:34 Oxygen Nasal Cannula 2 lpm Comment: Diagnosis: early pneumonia 08/27/18 22:54 BiPap/CPAP ROUTINE Comment: Diagnosis: early pneumonia Discharge Exam General Appearance: no apparent distress, alert Neurologic Exam: alert, oriented x 3, cooperative, normal mood/affect, nml cerebellar function, sensation nml, No motor deficits Skin Exam: normal color, warm, dry Eye Exam: PERRL, EOMI, eyes nml inspection Ears, Nose, Throat Exam: normal ENT inspection, pharynx normal, moist mucous membranes Neck Exam: normal inspection, non-tender, supple, full range of motion Respiratory Exam: normal breath sounds, lungs clear, No respiratory distress Cardiovascular Exam: regular rate/rhythm, normal heart sounds Gastrointestinal/Abdomen Exam: soft, No tenderness, No mass Extremity Exam: normal inspection, normal range of motion Back Exam: normal inspection, normal range of motion, No CVA tenderness, No vertebral tenderness Male Genitalia Exam: deferred Rectal Exam: deferred Final Diagnosis/Problem List - Final Discharge Diagnosis/Problem (1) Pneumonia Current Visit: Yes Status: Acute Assessment & Plan: improved, will d/c home with keflex 500 mg po qid for 5 days (2) Elevated INR Current Visit: Yes Status: Acute Assessment & Plan: hold coumadin today start coumadin 5 mg tommorow and PT/INR on tue. 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 - Discharge Discharge Date: 08/28/18 Disposition: Home, Self-Care Condition: Stable Prescriptions: New Cephalexin Mh 500 mg [Keflex 500 mg] 500 mg PO QID #20 capsule Continue Multivitamin/Iron/Folic Acid [Centrum Complete Multivit Tab] 1 each PO DAILY Warfarin Sodium 5 mg [Coumadin 5 MG] 12 mg PO UD Metformin HCl 1000 mg [Glucophage 1000 MG] 1,000 mg PO BID Bimatoprost 0.01% [Lumigan 0.01% 2.5 ml] 2.5 ml OP HS Tamsulosin HCl 0.4 mg [Flomax 0.4 MG] 0.4 mg PO HS Nitroglycerin 0.4 mg Tablet [Nitrostat 0.4 MG Tablet] 0.4 mg SL UD Isosorbide Mononitrate 30 mg [Imdur 30 MG] 30 mg DAILY Omeprazole 40 mg PO DAILY Atorvastatin Calcium 40 mg PO HS Gabapentin 800 mg PO BID Amlodipine Besylate 10 mg PO DAILY Clopidogrel Bisulfate 75 mg [PLAVIX 75 MG Tablet] 75 mg PO DAILY Iron 27 mg PO DAILY Testosterone Cypionate [Testone Cik] 0.5 ml IM WEEKLY Cyanocobalamin (Vitamin B-12) [B-12] 1,000 mcg PO DAILY Hydrocodone/APAP 10/325 mg [[place] 10/325 MG Tablet] 1 tab PO Q4H PRN PRN PRN Reason: Pain Hum Insulin NPH/Reg Insulin Hm [Novolin 70-30 100 Unit/ml Vial] 20 unit SQ DAILY Losartan/Hydrochlorothiazide [Losartan-Hctz 100-25 mg Tab] 1 each PO HS Additional Instructions: PT/INR on tue. hold coumadin till tue Follow up with: MICHELLE MISHRA MD [Primary Care Provider] - 1 Week
[2018-08-28] MEDS ORDERED: Coumadin 5 MG PO SCH (18:00)
[2018-08-29] MEDS ORDERED: Coumadin 10 MG PO SCH (18:00)
== END 2018-08-28 14:40 | disposition home or self-care (01) ==
LOC: ED 08:44 → MED SURG 12:00
PROVIDERS: ADMIT General Practice; ATTEND General Practice
DX: J18.9 Pneumonia, unspecified organism (principal); D68.9 Coagulation defect, unspecified; I10 Essential (primary) hypertension; E11.8 Type 2 diabetes mellitus with unspecified complications; E78.5 Hyperlipidemia, unspecified; J44.9 Chronic obstructive pulmonary disease, unspecified; E87.5 Hyperkalemia; R41.0 Disorientation, unspecified; Z79.01 Long term (current) use of anticoagulants; Z79.899 Other long term (current) drug therapy; I25.10 Atherosclerotic heart disease of native coronary artery without angina pectoris; Z95.1 Presence of aortocoronary bypass graft; I25.2 Old myocardial infarction
CPT/HCPCS: 36000; 36415; 70450; 71045; 80048; 80053; 81001; 82805; 82962; 83036; 83605; 83880; 84132; 84484; 85025; 85379; 85610; 85730; 87040; 87631; 93005; 93041; 93268; 94660; 94760; 94762; 96365; 99285; J0696; J1815; A9270-GY; G0378

== ENCOUNTER 2019-12-05 14:52 | Observation (INO) | payer MEDICARE, SELFPAY ==
[2019-12-05] MEDS ORDERED: Sodium Chloride 0.9% 1000 ML 1,000 ML IV STA (15:26)
[2019-12-05] MEDS ORDERED: Pepcid 20 MG VIAL IV ONE ×2 (15:26→15:33)
[2019-12-05] MEDS ORDERED: Zofran 4 MG/2 ML VIAL IV ONE (15:26)
[2019-12-05] MEDS ORDERED: Zofran 4 MG/2 ML VIAL ONE (15:33)
[2019-12-05] MEDS ORDERED: Sodium Chloride 0.9% 1000 ML 1,000 ML ONE (15:33)
--- NOTE | 2019-12-05 15:33 | ERPHSYRPT ---
- History of Present Illness Time Seen by Provider: 12/05/19 15:18 Source: patient, family Exam Limitations: no limitations Patient Subjective Stated Complaint: emesis Triage Nursing Assessment: pt to ED c/o vomiting onset 0200 this am. report s just one episode emesis, but pt has been "sleeping all day." denies diarrhea. last PO intake noon yesterday. denies abd pain or nausea at this time. chronic back pain. back to room via WC, normally ambulatory per self. pt A&Ox3. lung sounds clear, heart sounds clear, bowel sounds active. Physician History: 79 years old male with history of coronary artery disease status post CABG, peripheral vascular disease, hypertension, hyperlipidemia, diabetes mellitus presented in the ER with chief complaint of sudden onset nausea and vomiting times once around 2 AM today. Since then patient is severely nauseated but no vomiting. Initially vomiting was associated with abdominal pain which is resolved now. He denies any chest pain palpitations or shortness of breath. Eliezer melo report loss of appetite with no fluid intake since morning. He feels sleepy, tired, fatigued with no energy to do his routine activities. reports yesterday he was working outside for a while. He denies any sick contact fever or chills. Timing/Duration: today, sudden Severity: moderate Modifying Factors: Improves With: nothing Associated Symptoms: nausea, vomiting, loss of appetite, malaise, No shortness of breath, No heartburn, No diaphoresis, No cough, No chills, No chest pain, No fever, No headaches, No syncope Allergies/Adverse Reactions: Iodinated Contrast Media [Iodinated Contrast Media - IV Dye] Allergy (Intermediate, Verified 12/05/19 15:10) unknown- hives morphine Allergy (Intermediate, Verified 12/05/19 15:10) confusion and combative hydromorphone HCl [From Dilaudid] Adverse Reaction (Intermediate, Verified 12/05/19 15:10) confusion and combative oxycodone HCl [From OxyContin] Adverse Reaction (Intermediate, Verified 12/05/19 15:10) confusion/ combative Home Medications: Bimatoprost 0.01% [[place] 0.01% 2.5 ml] 2.5 ml OP HS 05/04/15 [History] Metformin HCl 1000 mg [Glucophage 1000 MG] 1,000 mg PO BID 05/04/15 [History] Multivitamin/Iron/Folic Acid [Centrum Complete Multivit Tab] 1 each PO DAILY 05/04/15 [History] Tamsulosin HCl 0.4 mg [Flomax 0.4 MG] 0.4 mg PO HS 05/04/15 [History] Warfarin Sodium 5 mg [Coumadin 5 MG] 12 mg PO UD 05/04/15 [History] Isosorbide Mononitrate 30 mg [Imdur 30 MG] 30 mg DAILY 08/09/16 [History] Amlodipine Besylate 10 mg PO DAILY 08/26/18 [History] Atorvastatin Calcium 40 mg PO HS 08/26/18 [History] Gabapentin 800 mg PO BID 08/26/18 [History] Hydrocodone/APAP 10/325 mg [[place] 10/325 MG Tablet] 1 tab PO Q4H PRN PRN 08/26/18 [History] Iron 27 mg PO DAILY 08/26/18 [History] Losartan/Hydrochlorothiazide [Losartan-Hctz 100-25 mg Tab] 1 each PO HS 08/26/18 [History] Omeprazole 40 mg PO DAILY 08/26/18 [History] Insulin Glargine,Hum.rec.anlog [Basaglar Kwikpen U-100] 15 unit SQ WEEKLY 12/05/19 [History] Methylphenidate 5 mg [Ritalin 5 MG] 5 mg PO DAILY 12/05/19 [History] Hx Tetanus, Diphtheria Vaccination/Date Given: No (unknwon) Hx Influenza Vaccination/Date Given: Yes Hx Pneumococcal Vaccination/Date Given: Yes Travel Risk - International Travel Have you traveled outside of the country in past 3 weeks: No - Coronavirus Screening Are you exhibiting any of the following symptoms?: Yes Close contact with a COVID-19 positive Pt in past 14-21 Days: No - Review of Systems Constitutional: Malaise, Weakness Eyes: No Symptoms Ears, Nose, & Throat: No Symptoms Respiratory: No Symptoms Cardiac: No Symptoms Abdominal/Gastrointestinal: Abdominal Pain, Nausea, Vomiting Genitourinary Symptoms: No Symptoms Musculoskeletal: No Symptoms Skin: No Symptoms Neurological: No Symptoms Psychological: No Symptoms Endocrine: No Symptoms Hematologic/Lymphatic: No Symptoms Immunological/Allergic: No Symptoms - Past Medical History Pertinent Past Medical History: Yes Neurological History: No Pertinent History ENT History: Cataracts, Glaucoma Cardiac History: Hypertension, Other Respiratory History: Asthma, Other Endocrine Medical History: Diabetes Type II Musculoskeletal History: Arthritis GI Medical History: GERD, Gallbladder Disease History: Other Psycho-Social History: Depression Male Reproductive Disorders: Prostate Problems Other Medical History: Pt notes he gets SOB at times. Open heart surgery - Past Surgical History Past Surgical History: Yes Neuro Surgical History: No Pertinent History Cardiac: CABG, Cardiac Catheterization, Cardiac Stent Respiratory: No Pertinent History Gastrointestinal: Appendectomy, Cholecystectomy Genitourinary: No Pertinent History Musculoskeletal: Orthopedic Surgery Male Surgical History: No Pertinent History Other Surgical History: back surgery. fem pop. steriod injection in various joints - Social History Smoking Status: Former smoker How long have you smoked: 1975 Exposure to second hand smoke: No Drug Use: none Patient Lives Alone: No - Nursing Vital Signs Nursing Vital Signs: Initial Vital Signs Temperature 98.9 F 12/05/19 14:59 Pulse Rate 77 12/05/19 14:59 Respiratory Rate 17 12/05/19 14:59 Blood Pressure 149/54 12/05/19 14:59 O2 Sat by Pulse Oximetry 98 12/05/19 14:59 Pain Scale Pain Intensity 0 - Physical Exam General Appearance: no apparent distress, alert Eye Exam: PERRL/EOMI, eyes nml inspection Ears, Nose, Throat Exam: normal ENT inspection, TMs normal, pharynx normal Neck Exam: normal inspection, non-tender, supple, full range of motion Respiratory Exam: normal breath sounds, lungs clear Cardiovascular Exam: regular rate/rhythm, normal heart sounds Gastrointestinal/Abdomen Exam: soft, normal bowel sounds, No tenderness Back Exam: normal inspection Extremity Exam: normal inspection, normal range of motion Neurologic Exam: alert, oriented x 3, cooperative, night court magistrate II-XII nml as tested, normal mood/affect, nml cerebellar function Skin Exam: normal color SpO2 Interpretation: normal SpO2: 98 O2 Delivery: Room Air - Course Nursing assessment & vital signs reviewed: Yes EKG Interpreted by Me: RATE, Sinus Rhythm, NORMAL AXIS, Right Bundle Branch Block, Non-specific ST Changes Ordered Tests: Active Orders 24 hr Category Date Time Status EKG-ER Only STAT Care 12/05/19 15:26 Active IV Insertion STAT Care 12/05/19 15:26 Active OBSTR/ACUTE ABDOMEN SERIES Stat Exams 12/05/19 15:27 Completed AMYLASE Stat Lab 12/05/19 15:20 Completed CBC W DIFF Stat Lab 12/05/19 15:20 Completed CMP Stat Lab 12/05/19 15:20 Completed LIPASE Stat Lab 12/05/19 15:20 Completed Lactic Acid Stat Lab 12/05/19 15:38 Completed PT INR [PROTIME WITH INR] Stat Lab 12/05/19 16:05 Completed TROPONIN Q3H Lab 12/05/19 15:20 Completed TROPONIN Q3H Lab 12/05/19 18:30 Ordered TROPONIN Q3H Lab 12/05/19 21:30 Ordered TROPONIN Q3H Lab 12/06/19 00:30 Ordered TROPONIN Q3H Lab 12/06/19 03:30 Ordered Medication Summary Generic Name Dose Route Start Last Admin Trade Name Freq PRN Reason Stop Dose Admin Sodium Chloride 1,000 mls @ 500 mls/hr 12/05/19 15:26 12/05/19 15:38 Sodium Chloride 0.9% 1000 Ml IV 12/05/19 17:25 500 mls/hr .Q2H STA Administration Discontinued Medications Generic Name Dose Route Start Last Admin Trade Name Freq PRN Reason Stop Dose Admin Famotidine 20 mg 12/05/19 15:26 12/05/19 15:42 Pepcid 20 Mg Vial IV 12/05/19 15:27 20 mg STAT ONE Administration Famotidine Confirm 12/05/19 15:33 Pepcid 20 Mg Vial Administered 12/05/19 15:34 Dose 20 mg IV .STK-MED ONE Sodium Chloride Confirm 12/05/19 15:33 Sodium Chloride 0.9% 1000 Ml Administered 12/05/19 15:34 Dose 1,000 mls @ ud .ROUTE .STK-MED ONE Ondansetron HCl 4 mg 12/05/19 15:26 12/05/19 15:40 Zofran 4 Mg/2 Ml Vial IV 12/05/19 15:27 4 mg STAT ONE Administration Ondansetron HCl Confirm 12/05/19 15:33 Zofran 4 Mg/2 Ml Vial Administered 12/05/19 15:34 Dose 4 mg .ROUTE .STK-MED ONE Lab/Rad Data: Laboratory Result Diagrams 12/05/19 15:20 12/05/19 15:20 Laboratory Results 12/05/19 12/05/19 12/05/19 Range/Units 16:05 15:38 15:20 WBC (4.0-10.5) K/mm3 RBC (4.1-5.6) M/mm3 Hgb (12.5-18.0) gm/dl Hct (42-50) % MCV (78-100) fl MCH (26-32) pg MCHC (32-36) g/dl RDW (11.5-14.0) % Plt Count (150-450) K/mm3 MPV (7.5-11.0) fl Gran % (36.0-66.0) % Eos # (Auto) (0-0.5) Absolute Lymphs (auto) (1.0-4.6) Absolute Monos (auto) (0.0-1.3) Lymphocytes % (24.0-44.0) % Monocytes % (0.0-12.0) % Eosinophils % (0.00-5.0) % Basophils % (0.0-0.4) % Absolute Granulocytes (1.4-6.9) Basophils # (0-0.4) PT 30.8 H (8.83-12.87) SECONDS INR 2.70 (0.8-3.0) Sodium (137-145) mmol/L Potassium (3.5-5.1) mmol/L Chloride (98-107) mmol/L Carbon Dioxide (22-30) mmol/L Anion Gap (5-15) MEQ/L BUN (9-20) mg/dL Creatinine (0.66-1.25) mg/dL Estimated GFR ML/MIN Glucose (74-106) mg/dL Lactic Acid 1.6 (0.4-2.0) Calcium (8.4-10.2) mg/dL Total Bilirubin (0.2-1.3) mg/dL AST (17-59) U/L ALT (0-50) U/L Alkaline Phosphatase (38-126) U/L Troponin I 0.016 (0.000-0.034) ng/mL Serum Total Protein (6.3-8.2) g/dL Albumin (3.5-5.0) g/dL Amylase (30-110) U/L Lipase (23-300) U/L 12/05/19 12/05/19 Range/Units 15:20 15:20 WBC 17.6 H (4.0-10.5) K/mm3 RBC 3.76 L (4.1-5.6) M/mm3 Hgb 11.4 L (12.5-18.0) gm/dl Hct 35.6 L (42-50) % MCV 94.7 (78-100) fl MCH 30.3 (26-32) pg MCHC 32.0 (32-36) g/dl RDW 14.4 H (11.5-14.0) % Plt Count 160 (150-450) K/mm3 MPV 12.8 H (7.5-11.0) fl Gran % 90.8 H (36.0-66.0) % Eos # (Auto) 0 (0-0.5) Absolute Lymphs (auto) 0.85 L (1.0-4.6) Absolute Monos (auto) 0.76 (0.0-1.3) Lymphocytes % 4.8 L (24.0-44.0) % Monocytes % 4.3 (0.0-12.0) % Eosinophils % 0.0 (0.00-5.0) % Basophils % 0.1 (0.0-0.4) % Absolute Granulocytes 15.97 H (1.4-6.9) Basophils # 0.02 (0-0.4) PT (8.83-12.87) SECONDS INR (0.8-3.0) Sodium 142 (137-145) mmol/L Potassium 5.7 H (3.5-5.1) mmol/L Chloride 110 H (98-107) mmol/L Carbon Dioxide 26 (22-30) mmol/L Anion Gap 12.5 (5-15) MEQ/L BUN 41 H (9-20) mg/dL Creatinine 1.94 H (0.66-1.25) mg/dL Estimated GFR 35.8 ML/MIN Glucose 211 H (74-106) mg/dL Lactic Acid (0.4-2.0) Calcium 10.3 H (8.4-10.2) mg/dL Total Bilirubin 0.60 (0.2-1.3) mg/dL AST 30 (17-59) U/L ALT 21 (0-50) U/L Alkaline Phosphatase 57 (38-126) U/L Troponin I (0.000-0.034) ng/mL Serum Total Protein 7.7 (6.3-8.2) g/dL Albumin 4.3 (3.5-5.0) g/dL Amylase 75 (30-110) U/L Lipase 42 (23-300) U/L - Progress Progress: unchanged Progress Note: 12/05/19 17:04 79 years old is evaluated for generalized weakness fatigue with nausea and vomiting times once more than 12 hours ago. He has nonfocal neuro exam. EKG showed sinus rhythm with right bundle branch block but no acute ST elevation. Normal initial troponins. Has a white count of 17 with normal lactate, no obvious source of elevated white count, urine is pending and mild worsening of renal functions. I believe patient is dehydrated and he is given a bolus of fluid. Has a potassium of 5.7 but I have reviewed in the past patient has potassium elevated around 5.5 in the past as well. I would give him Kayexalate. I will obtain acute abdomen series which did not show any acute findings but some constipation. I would also obtain rapid COVID-19 testing. I believe patient is dehydrated and needs fluid and monitoring of potassium. I have discussed with Dr. Bender, recommended giving calcium gluconate x1. Patient is being admitted for observation. Plan discussed with patient and family who understand and agree with it. 12/05/19 17:07 Discussed with : Sarah Will see patient in: hospital (observation) Counseled pt/family regarding: lab results, diagnosis, rad results - Departure Departure Disposition: Observation Clinical Impression: Hyperkalemia, General weakness Renal failure (ARF), acute on chronic Qualifiers: Acute renal failure type: unspecified Chronic kidney disease stage: unspecified stage Qualified Code(s): N17.9 - Acute kidney failure, unspecified; N18.9 - Chronic kidney disease, unspecified Condition: Stable Critical Care Time: No Referrals: FLORIDALMA AVILES [Primary Care Provider] -
[2019-12-05 15:50] LABS: Absolute Neutrophil Ct (ANC) 15.97 (1.4-6.9); BASOPHIL % 0.1 % (0.0-0.4); Basophil (Absolute #) 0.02 (0-0.4); Eosinophil (Absolute #) 0 (0-0.5); Hematocrit 35.6 % (42-50); Hemoglobin 11.4 gm/dl (12.5-18.0); Lymphocyte (Absolute #) 0.85 (1.0-4.6); Lymphocytes % 4.8 % (24.0-44.0); Mean Cell Volume 94.7 fl (78-100); Mean Corpuscular Hemoglobin 30.3 pg (26-32); Mean Platelet Volume 12.8 fl (7.5-11.0); Monocyte (Absolute #) 0.76 (0.0-1.3); Monocytes % 4.3 % (0.0-12.0); Neutrophil % 90.8 % (36.0-66.0); Platelet Count 160 K/mm3 (150-450); Red Blood Count 3.76 M/mm3 (4.1-5.6); Red Cell Distribution Width 14.4 % (11.5-14.0); White Blood Count 17.6 K/mm3 (4.0-10.5)
[2019-12-05 15:55] LABS: ALBUMIN 4.3 g/dL (3.5-5.0); ANION GAP 12.5 MEQ/L (5-15); BILIRUBIN,TOTAL 0.6 mg/dL (0.2-1.3); Calcium 10.3 mg/dL (8.4-10.2); Creatinine 1 1.94 mg/dL (0.66-1.25); Potassium 5.7 mmol/L (3.5-5.1); Total Protein 7.7 g/dL (6.3-8.2)
[2019-12-05 16:15] LABS: INR 2.7 (0.8-3.0); PROTIME 30.8 SECONDS (8.83-12.87)
--- NOTE | 2019-12-05 16:32 | XRAY ---
Indication: Weakness. Vomiting. Comparison: Chest exam July 19, 2019. Supine and left lateral decubitus abdomen demonstrates moderate diffuse scattered colonic fecal debris including rectum. No focal bowel dilatation, obstruction, or free air. Previous cholecystectomy. Moderate diffuse scattered vascular calcifications. Remaining solid organs are unremarkable. Osseous structures demonstrates osteopenia, mild multilevel degenerative spondylosis, and lumbosacral junction fusion surgery. Single AP chest remains clear again with incidental calcified granulomas. Heart is not enlarged again with CABG surgery. Bony thorax intact again with mild osteopenia and degenerative changes. Impression: Fecal stasis without obstruction. Continued nonacute with chronic features.
[2019-12-05] MEDS ORDERED: Kayexylate 15 GM/60 ML PO ONE (17:03)
[2019-12-05] MEDS ORDERED: Calcium Gluconate 10% 1000 MG IV ONE ×2 (17:03→17:10)
[2019-12-05] MEDS ORDERED: Kayexylate 15 GM/60 ML ONE (17:10)
[2019-12-05 18:54] LABS: Appearance CLEAR (CLEAR); Bilirubin NEGATIVE (NEGATIVE); Blood NEGATIVE Ery/ul (0-5); Glucose NEGATIVE (NEGATIVE); Ketones NEGATIVE (NEGATIVE); Leukocyte Esterase NEGATIVE (NEGATIVE); Nitrite NEGATIVE (NEGATIVE); Protein,Urine Dip 30 (Negative); Specific Gravity 1.014 (1.005-1.025); Urobilinogen NEGATIVE mg/dL (0-1)
[2019-12-05] MEDS ORDERED: Zofran 4 MG/2 ML VIAL IV PRN (19:42)
[2019-12-05] MEDS ORDERED: HUMALOG SQ PRN (19:42)
[2019-12-05] MEDS ORDERED: TYLENOL 325 MG PO PRN (19:42)
[2019-12-05] MEDS: Sodium Chloride 0.9% 1000 ML 1,000 ML IV SCH (20:30)
[2019-12-05] MEDS ORDERED: TRANDATE 20 MG/5 ML SYRINGE IV ONE (21:00)
[2019-12-05] MEDS: Pepcid 20 MG VIAL IV SCH (21:22)
[2019-12-06 05:14] LABS: Absolute Neutrophil Ct (ANC) 9.66 (1.4-6.9); BASOPHIL % 0.2 % (0.0-0.4); Basophil (Absolute #) 0.02 (0-0.4); Eosinophil % 0.5 % (0.00-5.0); Eosinophil (Absolute #) 0.06 (0-0.5); Hematocrit 30.2 % (42-50); Hemoglobin 9.4 gm/dl (12.5-18.0); Lymphocyte (Absolute #) 0.97 (1.0-4.6); Lymphocytes % 8.6 % (24.0-44.0); Mean Cell Volume 95.9 fl (78-100); Mean Corpuscular Hemoglobin 29.8 pg (26-32); Mean Corpuscular Hgb Concent. 31.1 g/dl (32-36); Mean Platelet Volume 12.5 fl (7.5-11.0); Monocyte (Absolute #) 0.52 (0.0-1.3); Monocytes % 4.6 % (0.0-12.0); Neutrophil % 86.1 % (36.0-66.0); Platelet Count 108 K/mm3 (150-450); Red Blood Count 3.15 M/mm3 (4.1-5.6); Red Cell Distribution Width 14.3 % (11.5-14.0); White Blood Count 11.2 K/mm3 (4.0-10.5)
[2019-12-06 05:31] LABS: ALBUMIN 2.9 g/dL (3.5-5.0); BILIRUBIN,TOTAL 0.5 mg/dL (0.2-1.3); Calcium 9.2 mg/dL (8.4-10.2); Creatinine 1 1.64 mg/dL (0.66-1.25); Potassium 4.7 mmol/L (3.5-5.1); Total Protein 5.7 g/dL (6.3-8.2)
[2019-12-06] MEDS: Sodium Chloride 0.9% 1000 ML 1,000 ML IV SCH ×2 (05:55→15:06)
[2019-12-06 07:30] VITALS: O2SAT 97
[2019-12-06 11:29] VITALS: BP 177/77; PULSE 63
[2019-12-06] MEDS: Pepcid 20 MG VIAL IV SCH (12:34)
[2019-12-06] MEDS ORDERED: Norco 10/325 MG Tablet PO PRN (13:15)
[2019-12-06] MEDS ORDERED: Nitrostat 0.4 MG Tablet SL PRN (13:15)
[2019-12-06] MEDS ORDERED: FEOSOL 325 MG PO SCH (14:00)
[2019-12-06] MEDS ORDERED: Lantus Insulin SQ SCH (14:00)
[2019-12-06] MEDS ORDERED: NORVASC 5 MG PO SCH (14:00)
[2019-12-06] MEDS ORDERED: hydroDIURIL 25 MG PO SCH (14:00)
[2019-12-06] MEDS ORDERED: Ritalin 5 MG PO SCH (14:00)
[2019-12-06] MEDS ORDERED: Protonix 40MG Tablet PO SCH (14:00)
[2019-12-06] MEDS ORDERED: Cozaar 50 MG PO SCH (14:00)
[2019-12-06] MEDS ORDERED: THERAGRAN MULTIVITAMIN PO SCH (14:00)
[2019-12-06] MEDS ORDERED: Neurontin 400 MG PO SCH (14:00)
[2019-12-06] MEDS ORDERED: Imdur 30 MG PO SCH (14:00)
[2019-12-06] MEDS ORDERED: Glucophage XR 500 MG PO SCH (17:00)
[2019-12-06] MEDS ORDERED: Coumadin 5 MG PO SCH (18:00)
--- NOTE | 2019-12-06 20:23 | PCM.SSS ---
History of Present Illness - Chief Complaint Chief Complaint: dehydration; weakness History of Present Illness: is a 79 year old male seen today following ER admission for hyperkalemia HELENE on CKD and dehydration. Patient reports that he had vomited the day prior. He also reports decreased appetite and decreased PO intake. Patient reports that he had nausea for the rest of the day without vomiting. Patient was also working out in the yard for part of the day yesterday. Patient had increasing fatigued and decreased activity as the day progressed. He had also had limited PO intake. So his encouraged him to go to ER. Patient reports that since admission he has been doing much better. He has not had any more episodes of vomiting. Patient denies any fevers or diarrhea. No reported sick contacts. Patient reports tolerating PO well. No other reported concerns. - Review of Systems Constitutional: Fatigue, No Fever, No Chills Eyes: No Symptoms Ears, Nose, & Throat: No Symptoms Respiratory: No Cough, No Short Of Breath Cardiac: No Chest Pain, No Edema Abdominal/Gastrointestinal: Nausea, Vomiting (Patient was vomiting prior to admission), No Abdominal Pain, No Diarrhea Genitourinary Symptoms: No Symptoms Musculoskeletal: No Symptoms Skin: No Symptoms Neurological: No Dizziness, No Headache Psychological: No Alcohol Abuse, No Drug Abuse, No Anxiety, No Depression Medications & Allergies Home Medications: Home Medication List Bimatoprost 0.01% [Lumigan 0.01% 2.5 ml] 1 drop OP HS 05/04/15 [History Confirmed 12/06/19] Multivitamin/Iron/Folic Acid [Centrum Complete Multivit Tab] 1 each PO DAILY 05/04/15 [History Confirmed 12/05/19] Tamsulosin HCl 0.4 mg [Flomax 0.4 MG] 0.8 mg PO HS 05/04/15 [History Confirmed 12/06/19] Warfarin Sodium 5 mg [Coumadin 5 MG] 10 mg PO EVENING MEAL 05/04/15 [History Confirmed 12/06/19] Isosorbide Mononitrate 30 mg [Imdur 30 MG] 30 mg PO DAILY 08/09/16 [History Confirmed 12/06/19] Amlodipine Besylate 10 mg PO DAILY 08/26/18 [History Confirmed 12/05/19] Atorvastatin Calcium 40 mg PO HS 08/26/18 [History Confirmed 12/05/19] Gabapentin 800 mg PO BID 08/26/18 [History Confirmed 12/05/19] Hydrocodone/APAP 10/325 mg [[place] 10/325 MG Tablet] 1 tab PO Q6H PRN PRN 08/26/18 [History Confirmed 12/06/19] Losartan/Hydrochlorothiazide [Losartan-Hctz 100-25 mg Tab] 1 tab PO DAILY 08/26/18 [History Confirmed 12/06/19] Omeprazole 40 mg PO DAILY 08/26/18 [History Confirmed 12/05/19] Methylphenidate 5 mg [Ritalin 5 MG] 10 mg PO DAILY 12/05/19 [History Confirmed 12/06/19] Ferrous Sulfate [Iron] 325 mg PO DAILY 12/06/19 [History Confirmed 12/06/19] Insulin Glargine,Hum.rec.anlog [Basaglar Kwikpen U-100] 20 unit SQ DAILY 12/06/19 [History Confirmed 12/06/19] Metformin HCl [Glucophage Xr] 1,000 mg PO BID 12/06/19 [History Confirmed 12/06/19] Nitroglycerin 0.4 mg Tablet [Nitrostat 0.4 MG Tablet] 0.4 mg SL Q5MIN PRN MR X 3 PRN 12/06/19 [History Confirmed 12/06/19] Allergies/Adverse Reactions: Allergies Allergy/AdvReac Type Severity Reaction Status Date / Time Iodinated Contrast Media Allergy Intermediate unknown- Verified 12/05/19 15:10 [Iodinated Contrast Media - hives IV Dye] morphine Allergy Intermediate confusion Verified 12/05/19 15:10 and combative hydromorphone HCl AdvReac Intermediate confusion Verified 12/05/19 15:10 [From Dilaudid] and combative oxycodone HCl AdvReac Intermediate confusion/ Verified 12/05/19 15:10 [From OxyContin] combative - Past Medical History Past Medical History: Yes Neurological History: No Pertinent History ENT History: Cataracts, Glaucoma Cardiac History: Hypertension, Other Respiratory History: Asthma, Other Endocrine Medical History: Diabetes Type II Musculoskelatal History: Arthritis GI Medical History: GERD, Gallbladder Disease History: Other Pyscho-Social History: Depression Male Reproductive Disorders: Prostate Problems Comment: Pt notes he gets SOB at times. Open heart surgery - Past Surgical History Past Surgical History: Yes Neuro Surgical History: No Pertinent History Cardiac History: CABG, Cardiac Catheterization, Cardiac Stent Respiratory Surgery: No Pertinent History GI Surgical History: Appendectomy, Cholecystectomy Genitourinary Surgical Hx: No Pertinent History Musculskeletal Surgical Hx: Orthopedic Surgery Male Surgical History: No Pertinent History Other Surgical History: back surgery. fem pop. steriod injection in various joints - Social History Smoking Status: Never smoker How long have you smoked: 1975 Exposure to second hand smoke: No Alcohol: None Drug Use: none - Physical Exam Vital Signs: Vital Signs - 24 hr Temp Pulse Resp BP Pulse Ox 12/06/19 12:00 16 12/06/19 11:28 98.2 F 63 16 177/77 97 12/06/19 07:38 16 12/06/19 07:29 98.8 F 65 16 155/69 97 12/06/19 04:00 98.4 F 78 16 156/61 93 L 12/06/19 00:00 98.3 F 63 16 100/44 93 L 12/05/19 21:51 98.8 F 77 24 150/66 94 L General Appearance: no apparent distress, No alert, No anxiety Neurologic Exam: alert, oriented x 3, cooperative, normal mood/affect, No disoriented, No confusion, No agitation Eye Exam: eyes nml inspection, No scleral icterus Ears, Nose, Throat Exam: moist mucous membranes Neck Exam: normal inspection Respiratory Exam: normal breath sounds, lungs clear, No chest tenderness, No respiratory distress, No diminished breath sounds, No wheezing Cardiovascular Exam: regular rate/rhythm, normal heart sounds, murmur, No friction rub, No gallop Gastrointestinal/Abdomen Exam: soft, normal bowel sounds, No tenderness, No dist ention, No guarding, No rebound Rectal Exam: not done Extremity Exam: normal inspection, No pedal edema, No swelling Skin Exam: normal color, warm, dry, No rash Results - Labs Lab/Micro Results: Accuchecks Date 12/06/19 Date 12/06/19 Time 04:00 Time 00:06 Accucheck Value: 240 Accucheck Value: 148 Accucheck Value: 155 Accucheck Value: 164 Lab Results-Last 24 Hours 12/05/19 12/06/19 12/06/19 Range/Units 21:30 00:30 04:55 WBC (4.0-10.5) K/mm3 RBC (4.1-5.6) M/mm3 Hgb (12.5-18.0) gm/dl Hct (42-50) % MCV (78-100) fl MCH (26-32) pg MCHC (32-36) g/dl RDW (11.5-14.0) % Plt Count (150-450) K/mm3 MPV (7.5-11.0) fl Gran % (36.0-66.0) % Eos # (Auto) (0-0.5) Absolute Lymphs (auto) (1.0-4.6) Absolute Monos (auto) (0.0-1.3) Lymphocytes % (24.0-44.0) % Monocytes % (0.0-12.0) % Eosinophils % (0.00-5.0) % Basophils % (0.0-0.4) % Absolute Granulocytes (1.4-6.9) Basophils # (0-0.4) Sodium (137-145) mmol/L Potassium (3.5-5.1) mmol/L Chloride (98-107) mmol/L Carbon Dioxide (22-30) mmol/L Anion Gap (5-15) MEQ/L BUN (9-20) mg/dL Creatinine (0.66-1.25) mg/dL Estimated GFR ML/MIN Glucose (74-106) mg/dL Hemoglobin A1c (4.5-6.0) % Calcium (8.4-10.2) mg/dL Total Bilirubin (0.2-1.3) mg/dL AST (17-59) U/L ALT (0-50) U/L Alkaline Phosphatase (38-126) U/L Troponin I 0.020 0.019 0.023 (0.000-0.034) ng/mL Serum Total Protein (6.3-8.2) g/dL Albumin (3.5-5.0) g/dL 12/06/19 12/06/19 12/06/19 Range/Units 04:55 04:55 05:00 WBC 11.2 H (4.0-10.5) K/mm3 RBC 3.15 L (4.1-5.6) M/mm3 Hgb 9.4 L (12.5-18.0) gm/dl Hct 30.2 L (42-50) % MCV 95.9 (78-100) fl MCH 29.8 (26-32) pg MCHC 31.1 L (32-36) g/dl RDW 14.3 H (11.5-14.0) % Plt Count 108 L (150-450) K/mm3 MPV 12.5 H (7.5-11.0) fl Gran % 86.1 H (36.0-66.0) % Eos # (Auto) 0.06 (0-0.5) Absolute Lymphs (auto) 0.97 L (1.0-4.6) Absolute Monos (auto) 0.52 (0.0-1.3) Lymphocytes % 8.6 L (24.0-44.0) % Monocytes % 4.6 (0.0-12.0) % Eosinophils % 0.5 (0.00-5.0) % Basophils % 0.2 (0.0-0.4) % Absolute Granulocytes 9.66 H (1.4-6.9) Basophils # 0.02 (0-0.4) Sodium 142 (137-145) mmol/L Potassium 4.7 (3.5-5.1) mmol/L Chloride 114 H (98-107) mmol/L Carbon Dioxide 26 (22-30) mmol/L Anion Gap 8.0 (5-15) MEQ/L BUN 36 H (9-20) mg/dL Creatinine 1.64 H (0.66-1.25) mg/dL Estimated GFR 43.4 ML/MIN Glucose 132 H (74-106) mg/dL Hemoglobin A1c 7.31 H (4.5-6.0) % Calcium 9.2 (8.4-10.2) mg/dL Total Bilirubin 0.50 (0.2-1.3) mg/dL AST 22 (17-59) U/L ALT 15 (0-50) U/L Alkaline Phosphatase 42 (38-126) U/L Troponin I (0.000-0.034) ng/mL Serum Total Protein 5.7 L (6.3-8.2) g/dL Albumin 2.9 L (3.5-5.0) g/dL Accuchecks Date 12/06/19 Date 12/06/19 Time 04:00 Time 00:06 Accucheck Value: 240 Accucheck Value: 148 Accucheck Value: 155 Accucheck Value: 164 - Radiology Impressions Radiology Exams & Impressions: Radiology Procedures Category Date Time Status OBSTR/ACUTE ABDOMEN SERIES Stat Exams 12/05/19 15:27 Completed Assessment/Plan (1) Dehydration Status: Acute Assessment & Plan: Patient had increased outpatient with vomiting and decreased intake.Patient's initials labs show worsening of renal function and increased WBC which was likely inflammatory marker. Patient was given IV fluids. His repeat labs in am showed significant improvement of WBC and renal function. Patient feels well enough to go home. Will plan for discharge today if patient continues to remain stable. He will need to have repeat labs to check kidney function wbc and electrolyte level. Code(s): E86.0 - DEHYDRATION (2) General weakness Status: Acute Assessment & Plan: Likely related to his dehydration. Patient's strength has improved since admission Code(s): R53.1 - WEAKNESS (3) HTN (hypertension) Status: Acute Qualifiers: Hypertension type: essential hypertension Qualified Code(s): I10 - Essent ial (primary) hypertension Assessment & Plan: Initially these were held due to some lower bp and decreased renal function. Will restart bp meds Code(s): I10 - ESSENTIAL (PRIMARY) HYPERTENSION (4) Hyperkalemia Status: Acute Assessment & Plan: Patient does have CKD. Patient was HELENE on CKD caused by dehydration which likely resulted in hyperkalemia. Patient was given calcium glucognate and kayexalate. Code(s): E87.5 - HYPERKALEMIA (5) Renal failure (ARF), acute on chronic Status: Acute Qualifiers: Acute renal failure type: unspecified Chronic kidney disease stage: unspecified stage Qualified Code(s): N17.9 - Acute kidney failure, unspecified; N18.9 - Chronic kidney disease, unspecified Assessment & Plan: Patient's Cr was elevated and gfr was decreased on admission. Following administration of IV fluids Cr and gfr started to correct. 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 Instructed patient he will need to follow up with cardiologists Code(s): R01.1 - CARDIAC MURMUR, UNSPECIFIED (8) Heart block Status: Acute Assessment & Plan: ER doctor noted first degree heart block on EKG. No complaints of chest pain on exam. Patient will need to follow up with boat canvas maker and installer after hospital DC Code(s): I45.9 - CONDUCTION DISORDER, UNSPECIFIED Hospital Summary - Hospital Course Hospital Course: 79 years old male with history of coronary artery disease status post CABG, peripheral vascular disease, hypertension, hyperlipidemia, diabetes mellitus presented in the ER with chief complaint of sudden onset nausea and vomiting x1 around 2 AM today. Since then patient has been severely nauseated but no vomiting. Initially vomiting was associated with abdominal pain which is resolved now. He denies any chest pain palpitations or shortness of breath. Patient report loss of appetite with no fluid intake since morning. He feels sleepy, tired, fatigued with no energy to do his routine activities. reports yesterday he was working outside for a while. He denies any sick contact fever or chills. He has nonfocal neuro exam. EKG showed sinus rhythm with right bundle branch block but no acute ST elevation. Normal initial troponins. Has a white count of 17 with normal lactate, no obvious source of elevated white count, urine is pending and mild worsening of renal functions. I believe patient is dehydrated and he is given a bolus of fluid. Has a potassium of 5.7 but I have reviewed in the past patient has potassium elevated around 5.5 in the past as well. I would give him Kayexalate. I will obtain acute abdomen series which did not show any acute findings but some constipation. I would also obtain rapid COVID-19 testing. I believe patient is dehydrated and needs fluid and monitoring of potassium. Patient was given calcium gluconate in ER. Patient was admitted for observation. He was continued on his IV flluids. He had repeat labs in am which had greatly improved. Patient WBC had trended down potassium was wnl. Cr level had decreased and GFR and increased. Patient was tolerating PO well. He was wanting go home. Patient had no other episodes of vomiting while in hospital. Patient was stable enough to be discharge and follow up with pcp and boat canvas maker and installer - Vitals & Intake/Output Vital Signs: Vital Signs Temperature 98.2 F 12/06/19 11:28 Pulse Rate 63 12/06/19 11:28 Respiratory Rate 16 12/06/19 12:00 Blood Pressure 177/77 12/06/19 11:28 O2 Sat by Pulse Oximetry 97 12/06/19 11:28 Intake & Output: Intake & Output 12/04/19 12/05/19 12/06/19 12/07/19 11:59 11:59 11:59 11:59 Intake Total 1473 480 Output Total 450 Balance 1023 480 Weight 85.9 kg - Lab Result Diagrams: 12/06/19 04:55 12/06/19 04:55 Lab Results-Last 24 Hrs: Accuchecks Date 12/06/19 Date 12/06/19 Time 04:00 Time 00:06 Accucheck Value: 240 Accucheck Value: 148 Accucheck Value: 155 Accucheck Value: 164 Lab Results-Last 24 Hours 12/05/19 12/06/19 12/06/19 Range/Units 21:30 00:30 04:55 WBC (4.0-10.5) K/mm3 RBC (4.1-5.6) M/mm3 Hgb (12.5-18.0) gm/dl Hct (42-50) % MCV (78-100) fl MCH (26-32) pg MCHC (32-36) g/dl RDW (11.5-14.0) % Plt Count (150-450) K/mm3 MPV (7.5-11.0) fl Gran % (36.0-66.0) % Eos # (Auto) (0-0.5) Absolute Lymphs (auto) (1.0-4.6) Absolute Monos (auto) (0.0-1.3) Lymphocytes % (24.0-44.0) % Monocytes % (0.0-12.0) % Eosinophils % (0.00-5.0) % Basophils % (0.0-0.4) % Absolute Granulocytes (1.4-6.9) Basophils # (0-0.4) Sodium (137-145) mmol/L Potassium (3.5-5.1) mmol/L Chloride (98-107) mmol/L Carbon Dioxide (22-30) mmol/L Anion Gap (5-15) MEQ/L BUN (9-20) mg/dL Creatinine (0.66-1.25) mg/dL Estimated GFR ML/MIN Glucose (74-106) mg/dL Hemoglobin A1c (4.5-6.0) % Calcium (8.4-10.2) mg/dL Total Bilirubin (0.2-1.3) mg/dL AST (17-59) U/L ALT (0-50) U/L Alkaline Phosphatase (38-126) U/L Troponin I 0.020 0.019 0.023 (0.000-0.034) ng/mL Serum Total Protein (6.3-8.2) g/dL Albumin (3.5-5.0) g/dL 12/06/19 12/06/19 12/06/19 Range/Units 04:55 04:55 05:00 WBC 11.2 H (4.0-10.5) K/mm3 RBC 3.15 L (4.1-5.6) M/mm3 Hgb 9.4 L (12.5-18.0) gm/dl Hct 30.2 L (42-50) % MCV 95.9 (78-100) fl MCH 29.8 (26-32) pg MCHC 31.1 L (32-36) g/dl RDW 14.3 H (11.5-14.0) % Plt Count 108 L (150-450) K/mm3 MPV 12.5 H (7.5-11.0) fl Gran % 86.1 H (36.0-66.0) % Eos # (Auto) 0.06 (0-0.5) Absolute Lymphs (auto) 0.97 L (1.0-4.6) Absolute Monos (auto) 0.52 (0.0-1.3) Lymphocytes % 8.6 L (24.0-44.0) % Monocytes % 4.6 (0.0-12.0) % Eosinophils % 0.5 (0.00-5.0) % Basophils % 0.2 (0.0-0.4) % Absolute Granulocytes 9.66 H (1.4-6.9) Basophils # 0.02 (0-0.4) Sodium 142 (137-145) mmol/L Potassium 4.7 (3.5-5.1) mmol/L Chloride 114 H (98-107) mmol/L Carbon Dioxide 26 (22-30) mmol/L Anion Gap 8.0 (5-15) MEQ/L BUN 36 H (9-20) mg/dL Creatinine 1.64 H (0.66-1.25) mg/dL Estimated GFR 43.4 ML/MIN Glucose 132 H (74-106) mg/dL Hemoglobin A1c 7.31 H (4.5-6.0) % Calcium 9.2 (8.4-10.2) mg/dL Total Bilirubin 0.50 (0.2-1.3) mg/dL AST 22 (17-59) U/L ALT 15 (0-50) U/L Alkaline Phosphatase 42 (38-126) U/L Troponin I (0.000-0.034) ng/mL Serum Total Protein 5.7 L (6.3-8.2) g/dL Albumin 2.9 L (3.5-5.0) g/dL Micro Results-Entire Visit: Accuchecks Date 12/06/19 Date 12/06/19 Time 04:00 Time 00:06 Accucheck Value: 240 Accucheck Value: 148 Accucheck Value: 155 Accucheck Value: 164 - Radiology Exams Ordered Rad Exams-Entire Visit: Radiology Procedures Category Date Time Status OBSTR/ACUTE ABDOMEN SERIES Stat Exams 12/05/19 15:27 Completed - Discharge Disposition: Home, Self-Care Condition: Stable Prescriptions: No Action Multivitamin/Iron/Folic Acid [Centrum Complete Multivit Tab] 1 each PO DAILY Warfarin Sodium 5 mg [Coumadin 5 MG] 10 mg PO EVENING MEAL Bimatoprost 0.01% [Lumigan 0.01% 2.5 ml] 1 drop OP HS Tamsulosin HCl 0.4 mg [Flomax 0.4 MG] 0.8 mg PO HS Isosorbide Mononitrate 30 mg [Imdur 30 MG] 30 mg PO DAILY Omeprazole 40 mg PO DAILY Atorvastatin Calcium 40 mg PO HS Gabapentin 800 mg PO BID Amlodipine Besylate 10 mg PO DAILY Hydrocodone/APAP 10/325 mg [[place] 10/325 MG Tablet] 1 tab PO Q6H PRN PRN PRN Reason: Pain Losartan/Hydrochlorothiazide [Losartan-Hctz 100-25 mg Tab] 1 tab PO DAILY Methylphenidate 5 mg [Ritalin 5 MG] 10 mg PO DAILY Insulin Glargine,Hum.rec.anlog [Basaglar Kwikpen U-100] 20 unit SQ DAILY Metformin HCl [Glucophage Xr] 1,000 mg PO BID Nitroglycerin 0.4 mg Tablet [Nitrostat 0.4 MG Tablet] 0.4 mg SL Q5MIN PRN MR X 3 PRN PRN Reason: Chest Pain Ferrous Sulfate [Iron] 325 mg PO DAILY Outpatient Orders: ECHO W/2D AND DOPPLER Time Frame: 12/12/19, Facility: [facility], Location: RADIOLOGY CBC Time Frame: 12/07/19, Facility: [facility], Location: LABORATORY NT PRO BNP Time Frame: 12/07/19, Facility: [facility], Location: LABORATORY Instructions: Dehydration, Adult (DC) Follow up with: FLORIDALMA AVILES [Primary Care Provider] - 12/12/19 10:00 am Forms: Discharge Instructions
[2019-12-06] MEDS ORDERED: NON-FORMULARY ITEM (Atorvastatin Calcium [Atorvastatin Calcium] 40 MG) PO SCH (22:00)
[2019-12-06] MEDS ORDERED: NON-FORMULARY ITEM (Gabapentin [Gabapentin] 800 MG) PO SCH (22:00)
[2019-12-06] MEDS ORDERED: ZOCOR 20MG PO SCH (22:00)
[2019-12-06] MEDS ORDERED: LUMIGAN 0.01% 2.5 ML OP SCH (22:00)
[2019-12-06] MEDS ORDERED: Flomax 0.4 MG PO SCH (22:00)
[2019-12-07] MEDS ORDERED: FOLIC ACID PO SCH (10:00)
[2019-12-07] MEDS ORDERED: MULTIVITAMIN PO SCH (10:00)
[2019-12-07] MEDS ORDERED: [UNRECOGNIZED DRUG - OTHER] PO SCH (10:00)
[2019-12-07] MEDS ORDERED: NON-FORMULARY ITEM (Omeprazole [Omeprazole] 40 MG) PO SCH (10:00)
[2019-12-07] MEDS ORDERED: IRON PO SCH (10:00)
[2019-12-07] MEDS ORDERED: NON-FORMULARY ITEM (Amlodipine Besylate [Amlodipine Besylate] 10 MG) PO SCH (10:00)
[2019-12-07] MEDS ORDERED: NON-FORMULARY ITEM (Losartan/Hydrochlorothiazide [Losartan-Hctz 100-25 Mg Tab] 1 TAB) PO SCH (10:00)
[2019-12-07] MEDS ORDERED: NON-FORMULARY ITEM (Insulin Glargine,Hum.Rec.Anlog [Basaglar Kwikpen U-100] 20 UNIT) SQ SCH (10:00)
== END 2019-12-06 16:22 | disposition home or self-care (01) ==
LOC: ED 14:52 → MED SURG 19:34
PROVIDERS: ADMIT Family Medicine; ATTEND Family Medicine
DX: E86.0 Dehydration (principal); R53.1 Weakness; E11.9 Type 2 diabetes mellitus without complications; I10 Essential (primary) hypertension; Z79.01 Long term (current) use of anticoagulants; Z79.899 Other long term (current) drug therapy
CPT/HCPCS: 36000; 36415; 74022; 80053; 81001; 82150; 82962; 83036; 83605; 83690; 84484; 85025; 85610; 93005; 93268; 96360; 96374; 96375; 99285; G0378; U0003; J0610; J2405; A9270-GY

== ENCOUNTER 2020-02-08 11:25 | Observation (INO) | payer MEDICARE ==
--- NOTE | 2020-02-08 11:57 | ERPHSYRPT ---
- History of Present Illness Time Seen by Provider: 02/08/20 11:45 Source: patient Exam Limitations: clinical condition Patient Subjective Stated Complaint: Pt brought to the ER by his , generalized body aches, dry cough, hypoxic, diarrhea, fever 3 days ago, son and daughter in law positive covid, sick but not tested, pt been sick for over a week Triage Nursing Assessment: Pt presents weak and slow walking, 88% on room air, placed on 4L and is now 98%, dry cough, loose stolols, fever 3 days ago, skin warm to touch, lethargic, pt urinated prior to coming to the ER, pt alert to place and president but unable to state day, month or year Physician History: This is a 79-year-old white male who is on Coumadin chronically, who has coronary artery disease and cardiac stents as well as CABG, diabetes, hyperten henny, chronic renal failure and presents with a 3-day history of fever, decreased appetite, loose stools, body aches, weakness and was hypoxic with room air oxygenation of 88% upon arrival to the emergency department. Patient has a son and [id number] who tested positive for the COVID-19 virus so there is immediate exposure. His has similar symptoms as him but she refuses to be tested. Upon arrival to the emergency department patient was immediately placed on 4 L of oxygen via nasal cannula and his oxygenation saturation increased to 97%. Patient also stated that he previously had a dry cough but that has resolved. He does not have chest pain. 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 Associated Symptoms: abdominal pain (Mild crampiness with loose stools), confusion, cough, muscle aches, weakness Allergies/Adverse Reactions: Iodinated Contrast Media [Iodinated Contrast Media - IV Dye] Allergy (Intermediate, Verified 02/08/20 11:49) unknown- hives morphine Allergy (Intermediate, Verified 02/08/20 11:49) confusion and combative hydromorphone HCl [From Dilaudid] Adverse Reaction (Intermediate, Verified 02/08/20 11:49) confusion and combative oxycodone HCl [From OxyContin] Adverse Reaction (Intermediate, Verified 02/08/20 11:49) confusion/ combative Home Medications: Bimatoprost 0.01% [Lumigan 0.01% 2.5 ml] 1 drop OP HS 05/04/15 [History] Multivitamin/Iron/Folic Acid [Centrum Complete Multivit Tab] 1 each PO DAILY 05/04/15 [History] Tamsulosin HCl 0.4 mg [Flomax 0.4 MG] 0.4 mg PO HS 05/04/15 [History] Warfarin Sodium 5 mg [Coumadin 5 MG] 10 mg PO EVENING MEAL 05/04/15 [History] Isosorbide Mononitrate 30 mg [Imdur 30 MG] 30 mg PO DAILY 08/09/16 [Hi story] Amlodipine Besylate 10 mg PO DAILY 08/26/18 [History] Atorvastatin Calcium 40 mg PO HS 08/26/18 [History] Gabapentin 800 mg PO BID 08/26/18 [History] Hydrocodone/APAP 10/325 mg [Seymour 10/325 MG Tablet] 1 tab PO Q6H PRN PRN 08/26/18 [History] Losartan/Hydrochlorothiazide [Losartan-Hctz 100-25 mg Tab] 1 tab PO DAILY 08/26/18 [History] Omeprazole 40 mg PO DAILY 08/26/18 [History] Methylphenidate 5 mg [Ritalin 5 MG] 5 mg PO DAILY 12/05/19 [History] Ferrous Sulfate [Iron] 325 mg PO DAILY 12/06/19 [History] Insulin Glargine,Hum.rec.anlog [Basaglar Kwikpen U-100] 20 unit SQ DAILY 0 12/06/19 [History] Metformin HCl [Glucophage Xr] 1,000 mg PO BID 12/06/19 [History] Nitroglycerin 0.4 mg Tablet [Nitrostat 0.4 MG Tablet] 0.4 mg SL Q5MIN PRN MR X 3 PRN 12/06/19 [History] Hx Tetanus, Diphtheria Vaccination/Date Given: No (unknwon) Hx Influenza Vaccination/Date Given: Yes Hx Pneumococcal Vaccination/Date Given: Yes Travel Risk - International Travel Have you traveled outside of the country in past 3 weeks: No - Coronavirus Screening Are you exhibiting any of the following symptoms?: Yes Symptoms: Cough: New Onset, Shortness of Breath, Vomiting/Diarrhea, Headaches/Body Aches/Fatigue - Review of Systems Constitutional: Weakness Eyes: No Symptoms Ears, Nose, & Throat: No Symptoms Respiratory: Cough, Dyspnea Cardiac: No Symptoms Abdominal/Gastrointestinal: Abdominal Pain, Diarrhea, Appetite Changes Genitourinary Symptoms: No Symptoms Musculoskeletal: Arthralgias, Myalgias Skin: No Symptoms Neurological: No Symptoms Psychological: No Symptoms Endocrine: No Symptoms Hematologic/Lymphatic: No Symptoms Immunological/Allergic: No Symptoms All Other Systems: Reviewed and Negative - Past Medical History Pertinent Past Medical History: Yes Neurological History: No Pertinent History ENT History: Cataracts, Glaucoma Cardiac History: Hypertension, Other Respiratory History: Asthma Endocrine Medical History: Diabetes Type II Musculoskeletal History: Degenerative Disk Disease, Osteoarthritis, Other GI Medical History: GERD, Gallbladder Disease History: Other Psycho-Social History: Depression Male Reproductive Disorders: Prostate Problems Other Medical History: heart surgery, 4 stints. - Past Surgical History Past Surgical History: Yes Neuro Surgical History: No Pertinent History Cardiac: CABG, Cardiac Catheterization, Cardiac Stent Respiratory: No Pertinent History Gastrointestinal: Appendectomy, Cholecystectomy Genitourinary: No Pertinent History Musculoskeletal: Orthopedic Surgery Male Surgical History: No Pertinent History Other Surgical History: back surgery. fem pop. steriod injection in various joints - Social History Smoking Status: Never smoker How long have you smoked: 1975 Exposure to second hand smoke: No Drug Use: none Patient Lives Alone: No - Nursing Vital Signs Nursing Vital Signs: Initial Vital Signs Temperature 98.3 F 02/08/20 11:32 Pulse Rate 96 H 02/08/20 11:32 Respiratory Rate 24 02/08/20 11:32 Blood Pressure 165/84 02/08/20 11:32 O2 Sat by Pulse Oximetry 88 L 02/08/20 11:32 Pain Scale Pain Intensity 10 - Physical Exam General Appearance: mild distress, lethargy (Mildly) Eye Exam: PERRL/EOMI, eyes nml inspection ENT Exam: normal ENT inspection, hearing grossly normal Neck Exam: normal inspection, non-tender, supple, full range of motion, trachea midline Respiratory Exam: normal breath sounds, lungs clear, respiratory distress (Mild), No chest non-tender, No no accessory muscle use, No accessory muscle use, No rhonchi, No stridor, No wheezing Cardiovascular/Chest Exam: normal heart sounds, regular rate/rhythm, normal peripheral pulses Gastrointestinal/Abdominal Exam: soft, non tender, no distention, no mass, no guarding Rectal Exam: not done Extremity Exam: non-tender, normal range of motion, normal inspection, normal capillary refill Neurologic Exam: alert, oriented x 3, cooperative, hardware designer II-XII nml as tested, normal mood/affect, nml cerebellar function, nml station & gait, sensation nml Skin Exam: normal color, warm, dry Lymphatic: No adenopathy SpO2 Interpretation: hypoxic SpO2: 88 O2 Delivery: Room Air - Course Nursing assessment & vital signs reviewed: Yes EKG Interpreted by Me: RATE (91), Sinus Rhythm, NORMAL AXIS, NORMAL INTERVALS, NORMAL QRS, Right Bundle Branch Block, Other (There are no acute ischemic changes on this EKG. There are also no changes from a comparison EKG dated 08/26/2018) Ordered Tests: Active Orders 24 hr Category Date Time Status Distance Learning Coordinator STAT Care 02/08/20 11:58 Active EKG-ER Only STAT Care 02/08/20 11:57 Active IV Insertion STAT Care 02/08/20 11:57 Active IV Insertion-2nd Peripheral STAT Care 02/08/20 12:12 Active Isolation, Initiate & Maintain STAT Care 02/08/20 11:57 Active Oxygen-ED Only Nasal Cannula 4 lpm Care 02/08/20 12:08 Active Pulse Oximetry (ED) ROUTINE Care 02/08/20 11:58 Active CHEST 1 VIEW (PORTABLE) Stat Exams 02/08/20 12:14 Completed BLOOD CULTURE Stat Lab 02/08/20 11:45 Received CBC W DIFF Stat Lab 02/08/20 11:45 Completed CMP Stat Lab 02/08/20 11:45 Completed Ferritin Stat Lab 02/08/20 11:45 Completed LDH-LACTATE DEHYDROGENASE Stat Lab 02/08/20 11:45 Completed Lactic Acid Stat Lab 02/08/20 11:57 Completed Manual Differential NC Stat Lab 02/08/20 11:45 Completed Graves Screen Stat Lab 02/08/20 11:45 Completed PROTIME WITH INR Stat Lab 02/08/20 11:45 Completed TROPONIN Q3H Lab 02/08/20 11:45 Completed TROPONIN Q3H Lab 02/08/20 15:00 Ordered TROPONIN Q3H Lab 02/08/20 18:00 Ordered TROPONIN Q3H Lab 02/08/20 21:00 Ordered TROPONIN Q3H Lab 02/09/20 00:00 Ordered Transfer Order Routine Transfer 02/08/20 Ordered Medication Summary Generic Name Dose Route Start Last Admin Trade Name Maribeth PRN Reason Stop Dose Admin Sodium Chloride 1,000 mls @ 50 mls/hr 02/08/20 12:00 02/08/20 12:10 Sodium Chloride 0.9% 1000 Ml IV 03/09/20 11:59 500 mls/hr .Q20H RUTH Administration Discontinued Medications Generic Name Dose Route Start Last Admin Trade Name Maribeth PRN Reason Stop Dose Admin Sodium Chloride 500 mls @ 500 mls/hr 02/08/20 11:59 02/08/20 12:11 Sodium Chloride 0.9% 500 Ml IV 02/08/20 12:58 Not Given .Q1H ONE Lab/Rad Data: Laboratory Result Diagrams 02/08/20 11:45 02/08/20 11:45 Laboratory Results 02/08/20 02/08/20 02/08/20 Range/Units 12:05 12:04 11:57 WBC (4.0-10.5) K/mm3 RBC (4.1-5.6) M/mm3 Hgb (12.5-18.0) gm/dl Hct (42-50) % MCV (78-100) fl MCH (26-32) pg MCHC (32-36) g/dl RDW (11.5-14.0) % Plt Count (150-450) K/mm3 MPV (7.5-11.0) fl Segmented Neutrophils (36.-66.) % Lymphocytes (Manual) (24-44) % Monocytes (Manual) (0.0-12.0) % Platelet Estimate (NORMAL) RBC Morphology PT (8.83-12.87) SECONDS INR (0.8-3.0) Sodium (137-145) mmol/L Potassium (3.5-5.1) mmol/L Chloride (98-107) mmol/L Carbon Dioxide (22-30) mmol/L Anion Gap (5-15) MEQ/L BUN (9-20) mg/dL Creatinine (0.66-1.25) mg/dL Estimated GFR ML/MIN Glucose (74-106) mg/dL Lactic Acid 1.7 (0.4-2.0) Calcium (8.4-10.2) mg/dL Ferritin (17.9-464) ng/mL Total Bilirubin (0.2-1.3) mg/dL AST (17-59) U/L ALT (0-50) U/L Alkaline Phosphatase (38-126) U/L Lactate Dehydrogenase (120-246) U/L Troponin I (0.000-0.034) ng/mL Serum Total Protein (6.3-8.2) g/dL Albumin (3.5-5.0) g/dL Monoscreen (Negative) Influenza Type A Ag NEGATIVE (NEGATIVE) Influenza Type B Ag NEGATIVE (NEGATIVE) RSV (PCR) NEGATIVE (Negative) SARS-CoV-2 (PCR) POSITIVE A (NEGATIVE) 02/08/20 02/08/20 02/08/20 Range/Units 11:45 11:45 11:45 WBC (4.0-10.5) K/mm3 RBC (4.1-5.6) M/mm3 Hgb (12.5-18.0) gm/dl Hct (42-50) % MCV (78-100) fl MCH (26-32) pg MCHC (32-36) g/dl RDW (11.5-14.0) % Plt Count (150-450) K/mm3 MPV (7.5-11.0) fl Segmented Neutrophils (36.-66.) % Lymphocytes (Manual) (24-44) % Monocytes (Manual) (0.0-12.0) % Platelet Estimate (NORMAL) RBC Morphology PT (8.83-12.87) SECONDS INR (0.8-3.0) Sodium (137-145) mmol/L Potassium (3.5-5.1) mmol/L Chloride (98-107) mmol/L Carbon Dioxide (22-30) mmol/L Anion Gap (5-15) MEQ/L BUN (9-20) mg/dL Creatinine (0.66-1.25) mg/dL Estimated GFR ML/MIN Glucose (74-106) mg/dL Lactic Acid (0.4-2.0) Calcium (8.4-10.2) mg/dL Ferritin 842 H (17.9-464) ng/mL Total Bilirubin (0.2-1.3) mg/dL AST (17-59) U/L ALT (0-50) U/L Alkaline Phosphatase (38-126) U/L Lactate Dehydrogenase (120-246) U/L Troponin I 0.035 H (0.000-0.034) ng/mL Serum Total Protein (6.3-8.2) g/dL Albumin (3.5-5.0) g/dL Monoscreen NEGATIVE (Negative) Influenza Type A Ag (NEGATIVE) Influenza Type B Ag (NEGATIVE) RSV (PCR) (Negative) SARS-CoV-2 (PCR) (NEGATIVE) 02/08/20 02/08/20 02/08/20 Range/Units 11:45 11:45 11:45 WBC 7.1 (4.0-10.5) K/mm3 RBC 3.46 L (4.1-5.6) M/mm3 Hgb 10.1 L (12.5-18.0) gm/dl Hct 31.7 L (42-50) % MCV 91.6 (78-100) fl MCH 29.2 (26-32) pg MCHC 31.9 L (32-36) g/dl RDW 14.7 H (11.5-14.0) % Plt Count 191 (150-450) K/mm3 MPV 10.9 (7.5-11.0) fl Segmented Neutrophils 85 H (36.-66.) % Lymphocytes (Manual) 11 L (24-44) % Monocytes (Manual) 4 (0.0-12.0) % Platelet Estimate NORMAL (NORMAL) RBC Morphology NORMAL PT 34.6 H (8.83-12.87) SECONDS INR 3.03 H (0.8-3.0) Sodium 138 (137-145) mmol/L Potassium 4.6 (3.5-5.1) mmol/L Chloride 107 (98-107) mmol/L Carbon Dioxide 23 (22-30) mmol/L Anion Gap 12.7 (5-15) MEQ/L BUN 50 H (9-20) mg/dL Creatinine 1.96 H (0.66-1.25) mg/dL Estimated GFR 35.3 ML/MIN Glucose 268 H (74-106) mg/dL Lactic Acid (0.4-2.0) Calcium 9.0 (8.4-10.2) mg/dL Ferritin (17.9-464) ng/mL Total Bilirubin 0.70 (0.2-1.3) mg/dL AST 37 (17-59) U/L ALT 19 (0-50) U/L Alkaline Phosphatase 58 (38-126) U/L Lactate Dehydrogenase 320 H (120-246) U/L Troponin I (0.000-0.034) ng/mL Serum Total Protein 7.5 (6.3-8.2) g/dL Albumin 3.6 (3.5-5.0) g/dL Monoscreen (Negative) Influenza Type A Ag (NEGATIVE) Influenza Type B Ag (NEGATIVE) RSV (PCR) (Negative) SARS-CoV-2 (PCR) (NEGATIVE) - Progress Progress: improved, re-examined Progress Note: 02/08/20 13:12 Portable chest x-ray demonstrates left base hazy interstitial opacities without consolidation Medical decision making: I discussed the results with patient and his spouse. Patient is positive for COVID-19. Patient needs admission into the hospital. Patient was hesitant at first but stated that he would follow the recommendations of his . His recommends the patient come into the hospital as well. We will make arrangements for this. 02/08/20 13:19 Medical decision making: I spoke with Dr. Rivera and reviewed the patient history, condition, laboratory data, x-ray results and vital signs. He accepts the patient for admission and recommends dexamethasone and remdesivir intravenously. Counseled pt/family regarding: lab results, diagnosis, need for follow-up, rad results - Departure Departure Disposition: In-patient Admission Clinical Impression: COVID-19 virus detected, Chronic renal failure, Hypoxia, Weakness, Opacity of lung on imaging study Condition: Fair Critical Care Time: Yes Critical Care Time(excluding separately billable procedures): Critical 30-74 mins Referrals: FLORIDALMA AVILES [Primary Care Provider] -
[2020-02-08] MEDS ORDERED: Sodium Chloride 0.9% 1000 ML 1,000 ML ONE (12:00)
[2020-02-08] MEDS ORDERED: Sodium Chloride 0.9% 1000 ML 1,000 ML IV SCH ×2 (12:00→14:17)
[2020-02-08] MEDS: Sodium Chloride 0.9% 500 ML 500 ML IV ONE ×2 (12:02→12:11)
[2020-02-08 12:07] LABS: Hematocrit 31.7 % (42-50); Hemoglobin 10.1 gm/dl (12.5-18.0); Mean Cell Volume 91.6 fl (78-100); Mean Corpuscular Hemoglobin 29.2 pg (26-32); Mean Corpuscular Hgb Concent. 31.9 g/dl (32-36); Mean Platelet Volume 10.9 fl (7.5-11.0); Platelet Count 191 K/mm3 (150-450); Red Blood Count 3.46 M/mm3 (4.1-5.6); Red Cell Distribution Width 14.7 % (11.5-14.0); White Blood Count 7.1 K/mm3 (4.0-10.5)
[2020-02-08 12:18] LABS: INR 3.03 (0.8-3.0); PROTIME 34.6 SECONDS (8.83-12.87)
[2020-02-08 12:22] LABS: ALBUMIN 3.6 g/dL (3.5-5.0); ANION GAP 12.7 MEQ/L (5-15); BILIRUBIN,TOTAL 0.7 mg/dL (0.2-1.3); Creatinine 1 1.96 mg/dL (0.66-1.25); EST GLOMERULAR FILTRATION RATE 35.3 ML/MIN; Potassium 4.6 mmol/L (3.5-5.1); Total Protein 7.5 g/dL (6.3-8.2)
[2020-02-08 12:40] LABS: INFLUENZA A NEGATIVE (NEGATIVE); INFLUENZA B NEGATIVE (NEGATIVE); RESPIRATORY SYNCTIAL VIRUS NEGATIVE (Negative)
--- NOTE | 2020-02-08 12:44 | XRAY ---
Indication: Suspect Covid 19. Comparison: December 05, 2019. Portable chest now demonstrates left base hazy interstitial opacities without consolidation/large effusion. Remaining heart and lungs unremarkable again with incidental calcified granulomas, CABG surgery, and tortuous descending aorta. Bony thorax intact.
[2020-02-08 12:59] LABS: Lymphocytes 11 % (24-44); Monocyte 4 % (0.0-12.0); Neutrophils 85 % (36.-66.); Total Cells Counted 100
[2020-02-08 13:01] LABS: Platelet Estimate NORMAL (NORMAL)
[2020-02-08] MEDS ORDERED: TYLENOL 325 MG PO PRN (14:17)
[2020-02-08] MEDS ORDERED: Zofran 4 MG/2 ML VIAL IV PRN (14:17)
[2020-02-08] MEDS ORDERED: REMDESIVIR 200 MG in Sodium Chloride 0.9% 250 ML 250 ML IV SCH (15:00)
[2020-02-08] MEDS ORDERED: REMDESIVIR IV ONE (15:00)
[2020-02-08] MEDS: Decadron 4 MG INJ IV SCH ×2 (16:05→21:35)
[2020-02-08] MEDS ORDERED: Ativan 1 MG PO PRN (17:19)
[2020-02-08] MEDS ORDERED: Nitrostat 0.4 MG Tablet SL PRN (17:20)
[2020-02-08] MEDS ORDERED: Norco 10/325 MG Tablet PO PRN (17:20)
[2020-02-08] MEDS ORDERED: Coumadin 10 MG PO SCH (18:00)
[2020-02-08] MEDS ORDERED: Coumadin 5 MG PO ONE (18:00)
[2020-02-08] MEDS ORDERED: Coumadin 5 MG ONE (18:19)
[2020-02-08] MEDS: Glucophage XR 500 MG PO SCH (18:30)
[2020-02-08] MEDS ORDERED: ZOCOR 20MG PO SCH (22:00)
[2020-02-08] MEDS ORDERED: NON-FORMULARY ITEM (Atorvastatin Calcium [Atorvastatin Calcium] 40 MG) PO SCH (22:00)
[2020-02-08] MEDS ORDERED: Neurontin 400 MG PO SCH (22:00)
[2020-02-08] MEDS ORDERED: NON-FORMULARY ITEM (Gabapentin [Gabapentin] 800 MG) PO SCH (22:00)
[2020-02-08] MEDS ORDERED: LUMIGAN 0.01% 2.5 ML OP SCH (22:00)
[2020-02-08] MEDS ORDERED: Flomax 0.4 MG PO SCH (22:00)
[2020-02-08] MEDS: HUMALOG SQ PRN (22:49)
[2020-02-09 05:40] LABS: Hematocrit 29.6 % (42-50); Hemoglobin 9.4 gm/dl (12.5-18.0); Mean Cell Volume 91.9 fl (78-100); Mean Corpuscular Hemoglobin 29.2 pg (26-32); Mean Corpuscular Hgb Concent. 31.8 g/dl (32-36); Mean Platelet Volume 11.1 fl (7.5-11.0); Platelet Count 190 K/mm3 (150-450); Red Blood Count 3.22 M/mm3 (4.1-5.6); Red Cell Distribution Width 14.6 % (11.5-14.0); White Blood Count 5.5 K/mm3 (4.0-10.5)
[2020-02-09 05:48] LABS: INR 3.56 (0.8-3.0); PROTIME 40.7 SECONDS (8.83-12.87)
[2020-02-09 05:53] LABS: ALBUMIN 3.3 g/dL (3.5-5.0); ANION GAP 11.8 MEQ/L (5-15); BILIRUBIN,TOTAL 0.4 mg/dL (0.2-1.3); Calcium 8.8 mg/dL (8.4-10.2); Creatinine 1 1.51 mg/dL (0.66-1.25); EST GLOMERULAR FILTRATION RATE 47.7 ML/MIN; Potassium 5.2 mmol/L (3.5-5.1); Total Protein 7.1 g/dL (6.3-8.2)
[2020-02-09 07:15] LABS: BAND 4 % (0.0-2.0); Basophil 1 % (0.0-1.0); Lymphocytes 6 % (24-44); Monocyte 2 % (0.0-12.0); Neutrophils 87 % (36.-66.); Platelet Estimate NORMAL (NORMAL); Total Cells Counted 100
[2020-02-09 07:16] LABS: Hypochromia 1+
[2020-02-09 08:23] VITALS: BP 164/74
[2020-02-09] MEDS: Glucophage XR 500 MG PO SCH (08:54)
[2020-02-09] MEDS: HUMALOG SQ PRN (08:54)
[2020-02-09 08:57] LABS: A-aADO2 393; ABG HEMOGLOBIN 11.9; ABG SITE LEFT BRACHIAL; ARTERIAL BLD GAS O2 SATURATION 94.4 % (95-100); ARTERIAL BLOOD GAS BASE EXCESS -1.6 (-2.0-2.0); ARTERIAL BLOOD GAS FIO2 70 %; ARTERIAL BLOOD GAS PCO2 32 mmHg (35-45); ARTERIAL BLOOD GAS PO2 66 mmHg (75-100); ARTERIAL BLOOD GAS pH 7.44 (7.35-7.45); CARBOXYHEMOGLOBIN 0.4 % THgb (0.0-6.9); HCO3- 21.7 (22-28); HGB O2 SAT 93.2 g/dF (94-100); Methhemoglobin 0.9 % (1.4-1.5); paO2 pAO1 0.14
[2020-02-09 09:58] VITALS: PULSE 87; O2SAT 92
[2020-02-09] MEDS ORDERED: hydroDIURIL 25 MG PO SCH (10:00)
[2020-02-09] MEDS ORDERED: IRON PO SCH (10:00)
[2020-02-09] MEDS ORDERED: Cozaar 50 MG PO SCH (10:00)
[2020-02-09] MEDS ORDERED: NON-FORMULARY ITEM (Omeprazole [Omeprazole] 40 MG) PO SCH (10:00)
[2020-02-09] MEDS ORDERED: Ritalin 5 MG PO SCH (10:00)
[2020-02-09] MEDS ORDERED: MULTIVITAMIN PO SCH (10:00)
[2020-02-09] MEDS ORDERED: Lantus Insulin SQ SCH (10:00)
[2020-02-09] MEDS ORDERED: Imdur 30 MG PO SCH (10:00)
[2020-02-09] MEDS ORDERED: NON-FORMULARY ITEM (Amlodipine Besylate [Amlodipine Besylate] 10 MG) PO SCH (10:00)
[2020-02-09] MEDS ORDERED: [UNRECOGNIZED DRUG - OTHER] PO SCH (10:00)
[2020-02-09] MEDS ORDERED: FEOSOL 325 MG PO SCH (10:00)
[2020-02-09] MEDS ORDERED: NON-FORMULARY ITEM (Insulin Glargine,Hum.Rec.Anlog [Basaglar Kwikpen U-100] 20 UNIT) SQ SCH (10:00)
[2020-02-09] MEDS ORDERED: NORVASC 5 MG PO SCH (10:00)
[2020-02-09] MEDS ORDERED: THERAGRAN MULTIVITAMIN PO SCH (10:00)
[2020-02-09] MEDS ORDERED: FOLIC ACID PO SCH (10:00)
[2020-02-09] MEDS ORDERED: Protonix 40MG Tablet PO SCH (10:00)
[2020-02-09] MEDS ORDERED: NON-FORMULARY ITEM (Losartan/Hydrochlorothiazide [Losartan-Hctz 100-25 Mg Tab] 1 TAB) PO SCH (10:00)
--- NOTE | 2020-02-11 14:14 | HP ---
CHIEF COMPLAINT: Shakes, fever, cough, diarrhea. Several family members with COVID. HISTORY OF PRESENT ILLNESS: The patient was brought to the emergency room with those complaints. He normally sees Taylor Chapman. He lives in [place]. He lives with his and he can sort of take care of himself. His son is also sick. This has been going on for three days. He had a fever up to 101F. He feels weak, tired. O2 was 83% on room air when they came to the emergency room and he was placed on 4 liters. He is disoriented to time and where he lives at. MEDICATIONS: Lumigan 0.01% one drop h.s., vitamins, Flomax 0.4, Coumadin 5 mg q.d., Imdur 30 q.d., Norvasc 10 q.d., atorvastatin 40 q.d., Neurontin 800 b.i.d., hydrocodone 10/325 PRN, losartan/hydrochlorothiazide 100/25 q.d., Prilosec 40 q.d., Ritalin 5 mg q.d. for depression, iron 325 q.d., insulin pen Glargine takes 20 units subcu daily, Metformin 1,000 b.i.d., Nitro 0.4 PRN. ALLERGIES: IODINATED CONTRAST. MORPHINE. HYDROMORPHONE. OXYCODONE. PAST MEDICAL HISTORY: Gastroesophageal reflux disease, diabetes mellitus type II, hypertension, prostate problems, depression. PAST SURGICAL HISTORY: He has had fem-pop bypass on the left besides heart bypasses. REVIEW OF SYSTEMS: CONSTITUTIONAL: The patient is weak. He is having fever. HEENT: No problems hearing or seeing. CHEST: Cough. Nonsmoker. CVS: No exertional chest pain or palpitation. He had bypass surgery. ABDOMEN: As above. Diarrhea. EXTREMITIES: Just weak. The patient is ambulatory slowly. SOCIAL HISTORY: Apparently he lives with his who apparently is also feeling but not bad enough to come to the emergency room. She is being isolated in the care of her family. PHYSICAL EXAMINATION: VITAL SIGNS: Temperature 98F, pulse 96, respirations 24, blood pressure 165/84. O2 saturation 88. HEENT: Pupils equal and reactive to light. Decreased hearing. NECK: Supple without adenopathy. CHEST: Clear. CVS: No murmurs or gallops. ABDOMEN: Soft. No masses or organomegaly. EXTREMITIES: The patient has no edema, can move all extremities. He has some swelling of the left knee. IMPRESSION: The patient has active COVID with cough, fever and GI symptoms. He has a history of coronary artery disease which is stable. Apparently some depression, probably some dementia not well documented. He is very forgetful and could recall what town he lived in initially. PLAN: At this time will treat him with Remdesivir 200 mg, Decadron 2 mg b.i.d., oxygen, IV fluids, prophylactic Lovenox, watch carefully for getting worse.
== END 2020-02-09 10:55 | disposition short-term general hospital (02) ==
LOC: ED 11:25 → INTOOBSV 14:05 → MED SURG 14:05
PROVIDERS: ADMIT Family Medicine; ATTEND Family Medicine
DX: U07.1 COVID-19 (principal); R50.9 Fever, unspecified; R19.7 Diarrhea, unspecified; R05 Cough; K21.9 Gastro-esophageal reflux disease without esophagitis; E11.22 Type 2 diabetes mellitus with diabetic chronic kidney disease; I12.9 Hypertensive chronic kidney disease with stage 1 through stage 4 chronic kidney disease, or unspecified chronic kidney disease; N18.9 Chronic kidney disease, unspecified; R09.02 Hypoxemia; R53.1 Weakness; Z11.59 Encounter for screening for other viral diseases; Z79.01 Long term (current) use of anticoagulants; Z79.899 Other long term (current) drug therapy; Z86.79 Personal history of other diseases of the circulatory system
CPT/HCPCS: 36000; 36415; 36600; 71045; 80053; 82375; 82728; 82803; 82962; 83605; 83615; 84484; 85025; 85610; 86308; 87040; 87631; 93005; 93041; 93268; 94760; 94762; 96360; 96361; 99284; 99291; G0378; U0003; J1100; J1817; A9270-GY

== ENCOUNTER 2020-02-22 08:18 | Inpatient (IN) | payer MEDICARE ==
--- NOTE | 2020-02-22 08:19 | ERPHSYRPT ---
- History of Present Illness Time Seen by Provider: 02/22/20 08:18 Source: patient, EMS Exam Limitations: clinical condition Physician History: This is a 80-year-old white male who I evaluated approximately 2 weeks ago because of vomiting diarrhea increased confusion and decreased appetite. He was positive for COVID-19. Patient was admitted in the hospital and managed in the hospital for several days. Approximately 1 week ago he was discharged to home. Patient was brought into the emergency department this morning via EMS because of increased confusion and fever. Patient has a history of gastroesophageal reflux disease, coronary artery disease, cardiac stents, hypertension, asthma, diabetes and renal failure. Patient is on Coumadin. Timing/Duration: today Severity: moderate Character of Deficits: other (Generalized weakness and increased confusion) Deficits: weak Baseline/Normal Cognition: alert but confused Current Cognition: alert but confused Associated Symptoms: confusion, fever Allergies/Adverse Reactions: Iodinated Contrast Media [Iodinated Contrast Media - IV Dye] Allergy (Intermediate, Verified 02/08/20 11:49) unknown- hives morphine Allergy (Intermediate, Verified 02/08/20 11:49) confusion and combative hydromorphone HCl [From Dilaudid] Adverse Reaction (Intermediate, Verified 02/08/20 11:49) confusion and combative oxycodone HCl [From OxyContin] Adverse Reaction (Intermediate, Verified 02/08/20 11:49) confusion/ combative Home Medications: Bimatoprost 0.01% [Lumigan 0.01% 2.5 ml] 1 drop OP HS 05/04/15 [History] Multivitamin/Iron/Folic Acid [Centrum Complete Multivit Tab] 1 each PO DAILY 05/04/15 [History] Tamsulosin HCl 0.4 mg [Flomax 0.4 MG] 0.4 mg PO HS 05/04/15 [History] Warfarin Sodium 5 mg [Coumadin 5 MG] 10 mg PO EVENING MEAL 05/04/15 [History] Isosorbide Mononitrate 30 mg [Imdur 30 MG] 30 mg PO DAILY 08/09/16 [History] Amlodipine Besylate 10 mg PO DAILY 08/26/18 [History] Atorvastatin Calcium 40 mg PO HS 08/26/18 [History] Gabapentin 800 mg PO BID 08/26/18 [History] Hydrocodone/APAP 10/325 mg [[place] 10/325 MG Tablet] 1 tab PO Q6H PRN PRN 08/26/18 [History] Losartan/Hydrochlorothiazide [Losartan-Hctz 100-25 mg Tab] 1 tab PO DAILY 08/26/18 [History] Omeprazole 40 mg PO DAILY 08/26/18 [History] Methylphenidate 5 mg [Ritalin 5 MG] 5 mg PO DAILY 12/05/19 [History] Ferrous Sulfate [Iron] 325 mg PO DAILY 12/06/19 [History] Insulin Glargine,Hum.rec.anlog [Basaglar Kwikpen U-100] 20 unit SQ DAILY 12/06/19 [History] Metformin HCl [Glucophage Xr] 1,000 mg PO BID 12/06/19 [History] Nitroglycerin 0.4 mg Tablet [Nitrostat 0.4 MG Tablet] 0.4 mg SL Q5MIN PRN MR X 3 PRN 12/06/19 [History] Hx Tetanus, Diphtheria Vaccination/Date Given: No (unknwon) Hx Influenza Vaccination/Date Given: Yes Hx Pneumococcal Vaccination/Date Given: Yes Travel Risk - International Travel Have you traveled outside of the country in past 3 weeks: No - Coronavirus Screening Are you exhibiting any of the following symptoms?: Yes Symptoms: Fever, Headaches/Body Aches/Fatigue Close contact with a COVID-19 positive Pt in past 14-21 Days: Yes - Review of Systems Constitutional: Fever, Weakness Eyes: No Symptoms Ears, Nose, & Throat: Other Respiratory: No Symptoms (Dry mouth) Cardiac: Palpitations Abdominal/Gastrointestinal: No Symptoms Genitourinary Symptoms: No Symptoms Musculoskeletal: No Symptoms Skin: No Symptoms Neurological: Other (Increased confusion) Psychological: No Symptoms Endocrine: No Symptoms Hematologic/Lymphatic: No Symptoms Immunological/Allergic: No Symptoms All Other Systems: Unable due to condition - Past Medical History Pertinent Past Medical History: Yes Neurological History: No Pertinent History ENT History: Cataracts, Glaucoma Cardiac History: Hypertension, Other Respiratory History: Asthma Endocrine Medical History: Diabetes Type II Musculoskeletal History: Degenerative Disk Disease, Osteoarthritis, Other GI Medical History: GERD, Gallbladder Disease History: Other Psycho-Social History: Depression Male Reproductive Disorders: Prostate Problems Other Medical History: heart surgery, 4 stints. - Past Surgical History Past Surgical History: Yes Neuro Surgical History: No Pertinent History Cardiac: CABG, Cardiac Catheterization, Cardiac Stent Respiratory: No Pertinent History Gastrointestinal: Appendectomy, Cholecystectomy Genitourinary: No Pertinent History Musculoskeletal: Orthopedic Surgery Male Surgical History: No Pertinent History Other Surgical History: back surgery. fem pop. steriod injection in various joints - Social History Smoking Status: Never smoker How long have you smoked: 1975 Exposure to second hand smoke: No Drug Use: none Patient Lives Alone: No - Nursing Vital Signs Nursing Vital Signs: Initial Vital Signs Temperature 102.0 F 02/22/20 08:56 Pulse Rate 110 H 02/22/20 08:56 Respiratory Rate 24 02/22/20 08:56 Blood Pressure 147/86 02/22/20 08:56 O2 Sat by Pulse Oximetry 98 02/22/20 08:56 Pain Scale Pain Intensity 0 - [place] Coma Scale Best Eye Response ([place]): (4) open spontaneously Best Verbal Response ([place]): (4) confused conversation Best Motor Response ([place]): (5) localizes to pain [place] Total: 13 - Physical Exam General Appearance: moderate distress, alert Eye Exam: bilateral eye: normal inspection, PERRL, EOMI Ears, Nose, Throat Exam: dry mucous membranes Neck Exam: normal inspection, non-tender, supple, full range of motion Respiratory: normal breath sounds, lungs clear, airway intact, No chest tenderness, No respiratory distress Cardiovascular: tachycardia Gastrointestinal: soft, normal bowel sounds, No tenderness Rectal Exam: not done Back Exam: normal inspection, normal range of motion, No CVA tenderness, No vertebral tenderness Extremity Exam: normal inspection, normal range of motion, pelvis stable Mental 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, 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 Exam: PERRL, tongue midline Motor/Sensory: no motor deficit, no sensory deficit Skin Exam: normal color, warm, dry SpO2 Interpretation: borderline oxygenation O2 Delivery: Room Air - Course Nursing assessment & vital signs reviewed: Yes Ordered Tests: Active Orders 24 hr Category Date Time Status Pump Room Operator STAT Care 02/22/20 08:28 Active EKG-ER Only STAT Care 02/22/20 08:27 Active Gamble [Catheter-Colo Gamble] STAT Care 02/22/20 09:04 Active IV Insertion STAT Care 02/22/20 08:27 Active Isolation, Initiate & Maintain STAT Care 02/22/20 08:27 Active Pulse Oximetry (ED) ROUTINE Care 02/22/20 08:28 Active CHEST 1 VIEW (PORTABLE) Stat Exams 02/22/20 09:23 Completed HEAD WITHOUT CONTRAST [CT] Stat Exams 02/22/20 08:48 Completed BLOOD CULTURE Stat Lab 02/22/20 08:39 Received CBC Stat Lab 02/22/20 08:39 Completed CMP Stat Lab 02/22/20 08:39 Completed Lactic Acid Stat Lab 02/22/20 08:27 Completed [place] Screen Stat Lab 02/22/20 08:39 Completed PROTIME WITH INR Stat Lab 02/22/20 08:39 Completed TROPONIN Q3H Lab 02/22/20 08:39 Completed TROPONIN Q3H Lab 02/22/20 11:30 Ordered TROPONIN Q3H Lab 02/22/20 14:30 Ordered TROPONIN Q3H Lab 02/22/20 17:30 Ordered TROPONIN Q3H Lab 02/22/20 20:30 Ordered Medication Summary Generic Name Dose Route Start Last Admin Trade Name Freq PRN Reason Stop Dose Admin Sodium Chloride 1,000 mls @ 50 mls/hr 02/22/20 08:30 02/22/20 08:35 Sodium Chloride 0.9% 1000 Ml IV 03/23/20 08:29 50 mls/hr .Q20H RUTH Administration Ceftriaxone Sodium/Dextrose 1 g in 50 mls @ 100 mls/hr 02/22/20 10:41 02/22/20 10:43 Rocephin 1 Gm-D5w 50 Ml Bag IV 02/22/20 11:10 100 mls/hr STAT STA 100 mls/hr Administration Discontinued Medications Generic Name Dose Route Start Last Admin Trade Name Freq PRN Reason Stop Dose Admin Acetaminophen 500 mg 02/22/20 08:27 02/22/20 08:35 Tylenol Extra Strength 500 Mg PO 02/22/20 08:28 500 mg STAT STA Administration Acetaminophen Confirm 02/22/20 08:34 Tylenol Extra Strength 500 Mg Administered 02/22/20 08:35 Dose 500 mg .ROUTE .STK-MED ONE Sodium Chloride 500 mls @ 500 mls/hr 02/22/20 08:48 02/22/20 08:52 Sodium Chloride 0.9% 500 Ml IV 02/22/20 09:47 500 mls/hr .Q1H ONE Administration Ceftriaxone Sodium/Dextrose Confirm 02/22/20 10:43 Rocephin 1 Gm-D5w 50 Ml Bag Administered 02/22/20 10:44 Dose 1 g in 50 mls @ ud IV .STK-MED ONE Phytonadione 10 mg 02/22/20 09:18 Vitamin K 10 Mg/Ml IM 02/22/20 09:19 STAT ONE Lab/Rad Data: Laboratory Result Diagrams 02/22/20 08:39 02/22/20 08:39 Laboratory Results 02/22/20 02/22/20 02/22/20 Range/Units 09:55 08:39 08:39 WBC (4.0-10.5) K/mm3 RBC (4.1-5.6) M/mm3 Hgb (12.5-18.0) gm/dl Hct (42-50) % MCV (78-100) fl MCH (26-32) pg MCHC (32-36) g/dl RDW (11.5-14.0) % Plt Count (150-450) K/mm3 MPV (7.5-11.0) fl PT (8.83-12.87) SECONDS INR (0.8-3.0) Sodium (137-145) mmol/L Potassium (3.5-5.1) mmol/L Chloride (98-107) mmol/L Carbon Dioxide (22-30) mmol/L Anion Gap (5-15) MEQ/L BUN (9-20) mg/dL Creatinine (0.66-1.25) mg/dL Estimated GFR ML/MIN Glucose (74-106) mg/dL Lactic Acid (0.4-2.0) Calcium (8.4-10.2) mg/dL Total Bilirubin (0.2-1.3) mg/dL AST (17-59) U/L ALT (0-50) U/L Alkaline Phosphatase (38-126) U/L Troponin I 0.012 (0.000-0.034) ng/mL Serum Total Protein (6.3-8.2) g/dL Albumin (3.5-5.0) g/dL Monoscreen NEGATIVE (Negative) Influenza Type A Ag NEGATIVE (NEGATIVE) Influenza Type B Ag NEGATIVE (NEGATIVE) RSV (PCR) NEGATIVE (Negative) 02/22/20 02/22/2020 Range/Units 08:39 08:39 08:39 WBC 17.5 H (4.0-10.5) K/mm3 RBC 3.15 L (4.1-5.6) M/mm3 Hgb 9.3 L (12.5-18.0) gm/dl Hct 29.0 L (42-50) % MCV 92.1 (78-100) fl MCH 29.5 (26-32) pg MCHC 32.1 (32-36) g/dl RDW 14.9 H (11.5-14.0) % Plt Count 160 (150-450) K/mm3 MPV 13.2 H (7.5-11.0) fl PT 63.0 H (8.83-12.87) SECONDS INR 5.48 H* D (0.8-3.0) Sodium 134 L (137-145) mmol/L Potassium 5.8 H (3.5-5.1) mmol/L Chloride 102 (98-107) mmol/L Carbon Dioxide 30 (22-30) mmol/L Anion Gap 8.3 (5-15) MEQ/L BUN 38 H (9-20) mg/dL Creatinine 2.11 H (0.66-1.25) mg/dL Estimated GFR 32.4 ML/MIN Glucose 167 H (74-106) mg/dL Lactic Acid (0.4-2.0) Calcium 9.2 (8.4-10.2) mg/dL Total Bilirubin 0.60 (0.2-1.3) mg/dL AST 29 (17-59) U/L ALT 16 (0-50) U/L Alkaline Phosphatase 82 (38-126) U/L Troponin I (0.000-0.034) ng/mL Serum Total Protein 7.0 (6.3-8.2) g/dL Albumin 3.3 L (3.5-5.0) g/dL Monoscreen (Negative) Influenza Type A Ag (NEGATIVE) Influenza Type B Ag (NEGATIVE) RSV (PCR) (Negative) 02/22/20 Range/Units 08:27 WBC (4.0-10.5) K/mm3 RBC (4.1-5.6) M/mm3 Hgb (12.5-18.0) gm/dl Hct (42-50) % MCV (78-100) fl MCH (26-32) pg MCHC (32-36) g/dl RDW (11.5-14.0) % Plt Count (150-450) K/mm3 MPV (7.5-11.0) fl PT (8.83-12.87) SECONDS INR (0.8-3.0) Sodium (137-145) mmol/L Potassium (3.5-5.1) mmol/L Chloride (98-107) mmol/L Carbon Dioxide (22-30) mmol/L Anion Gap (5-15) MEQ/L BUN (9-20) mg/dL Creatinine (0.66-1.25) mg/dL Estimated GFR ML/MIN Glucose (74-106) mg/dL Lactic Acid 1.3 (0.4-2.0) Calcium (8.4-10.2) mg/dL Total Bilirubin (0.2-1.3) mg/dL AST (17-59) U/L ALT (0-50) U/L Alkaline Phosphatase (38-126) U/L Troponin I (0.000-0.034) ng/mL Serum Total Protein (6.3-8.2) g/dL Albumin (3.5-5.0) g/dL Monoscreen (Negative) Influenza Type A Ag (NEGATIVE) Influenza Type B Ag (NEGATIVE) RSV (PCR) (Negative) - Progress Progress: improved, re-examined Progress Note: 02/22/20 10:54 CAT scan of the head reveals nonacute senile brain. Chest x-ray reveals less inflated left base infiltrate. New right mid to lower lung infiltrate/atelectasis Medical decision making: This patient was discussed with Dr. Washburn. I reviewed the patient history, condition, laboratory work-up and x-ray findings. He agrees to admit the patient to the COVID unit. We will treat his pneumonia with Rocephin and azithromycin. Patient is agreeable for admission. I did discuss the above with the patient's Geena. Dr. Washburn states to hold off on vitamin K at this time Discussed with Dr.: Other (Dr. Jermaine Washburn) Counseled pt/family regarding: lab results, diagnosis, rad results - Departure Departure Disposition: In-patient Admission Clinical Impression: Pneumonia due to COVID-19 virus, Fever, Confusion, Leukocytosis Condition: Stable Critical Care Time: No Referrals: HERMELINDA PRICE MD [Primary Care Provider] -
[2020-02-22] MEDS ORDERED: TYLENOL EXTRA STRENGTH 500 MG PO STA (08:27)
[2020-02-22] MEDS ORDERED: Sodium Chloride 0.9% 1000 ML 1,000 ML IV SCH (08:30)
[2020-02-22] MEDS ORDERED: TYLENOL EXTRA STRENGTH 500 MG ONE (08:34)
[2020-02-22] MEDS ORDERED: Sodium Chloride 0.9% 1000 ML 1,000 ML ONE (08:34)
[2020-02-22] MEDS ORDERED: Sodium Chloride 0.9% 500 ML 500 ML IV ONE (08:48)
[2020-02-22 08:57] LABS: Hemoglobin 9.3 gm/dl (12.5-18.0); Mean Cell Volume 92.1 fl (78-100); Mean Corpuscular Hemoglobin 29.5 pg (26-32); Mean Corpuscular Hgb Concent. 32.1 g/dl (32-36); Mean Platelet Volume 13.2 fl (7.5-11.0); Platelet Count 160 K/mm3 (150-450); Red Blood Count 3.15 M/mm3 (4.1-5.6); Red Cell Distribution Width 14.9 % (11.5-14.0); White Blood Count 17.5 K/mm3 (4.0-10.5)
[2020-02-22 09:13] LABS: ALBUMIN 3.3 g/dL (3.5-5.0); ANION GAP 8.3 MEQ/L (5-15); BILIRUBIN,TOTAL 0.6 mg/dL (0.2-1.3); Calcium 9.2 mg/dL (8.4-10.2); Creatinine 1 2.11 mg/dL (0.66-1.25); EST GLOMERULAR FILTRATION RATE 32.4 ML/MIN; Potassium 5.8 mmol/L (3.5-5.1)
[2020-02-22 09:16] LABS: INR 5.48 (0.8-3.0)
[2020-02-22] MEDS ORDERED: Vitamin K 10 MG/ML IM ONE (09:18)
--- NOTE | 2020-02-22 09:29 | XRAY ---
Indication: Confusion. Covid 19 positive. Multiple contiguous axial images obtained through the head without contrast. Comparison: August 26, 2018. Again age-appropriate global atrophy and moderate periventricular degenerative micro-ischemia bilaterally. No acute intracranial hemorrhage, abnormal extra-axial fluid collection, or mass effect. Fourth ventricle is midline without hydrocephalus. Bony calvarium intact. Visualized paranasal sinuses and mastoid air cells are clear. Impression: Continued nonacute senile brain.
--- NOTE | 2020-02-22 09:42 | XRAY ---
Indication: Fever. Covid 19 positive. Comparison: February 08, 2020. Portable chest less inflated with worsening left base and new right mid/lower lung infiltrates/atelectasis. Heart is not enlarged again with CABG and tortuous descending aorta.
[2020-02-22 10:32] LABS: INFLUENZA A NEGATIVE (NEGATIVE); INFLUENZA B NEGATIVE (NEGATIVE); RESPIRATORY SYNCTIAL VIRUS NEGATIVE (Negative)
[2020-02-22] MEDS ORDERED: ROCEPHIN 1 Gm-D5w 50 ml Bag** 1 G/50 ML IVPB IV STA (10:41)
[2020-02-22] MEDS ORDERED: ROCEPHIN 1 Gm-D5w 50 ml Bag** 1 G/50 ML IVPB IV ONE (10:43)
[2020-02-22] MEDS ORDERED: HUMULIN R SQ PRN (12:43)
[2020-02-22] MEDS ORDERED: Zofran 4 MG/2 ML VIAL IV PRN (12:43)
[2020-02-22] MEDS: Zithromax 500 MG/ 250 ML NaCl Premix 500 MG/250 ML IVPB IV SCH (12:59)
[2020-02-22] MEDS: Pepcid 20 MG VIAL IV SCH ×2 (12:59→21:03)
[2020-02-22] MEDS ORDERED: Nitrostat 0.4 MG Tablet SL PRN (15:33)
[2020-02-22] MEDS ORDERED: Norco 10/325 MG Tablet PO PRN (15:33)
[2020-02-22] MEDS: Protonix 40MG Tablet PO SCH (16:27)
[2020-02-22] MEDS: Imdur 30 MG PO SCH (16:27)
[2020-02-22] MEDS: hydroDIURIL 25 MG PO SCH (16:27)
[2020-02-22] MEDS: NORVASC 5 MG PO SCH (16:28)
[2020-02-22] MEDS: Glucophage XR 500 MG PO SCH (16:28)
[2020-02-22] MEDS: Cozaar 50 MG PO SCH (16:28)
[2020-02-22] MEDS: FEOSOL 325 MG PO SCH (16:29)
[2020-02-22] MEDS: HUMALOG SQ PRN (16:29)
[2020-02-22] MEDS ORDERED: TYLENOL 325 MG PO PRN (17:06)
[2020-02-22] MEDS: Neurontin 400 MG PO SCH (21:05)
[2020-02-22] MEDS ORDERED: ZOCOR 20MG PO SCH (22:00)
[2020-02-22] MEDS ORDERED: Flomax 0.4 MG PO SCH (22:00)
[2020-02-22] MEDS ORDERED: NON-FORMULARY ITEM (Atorvastatin Calcium [Atorvastatin Calcium] 40 MG) PO SCH (22:00)
[2020-02-22] MEDS ORDERED: NON-FORMULARY ITEM (Gabapentin [Gabapentin] 800 MG) PO SCH (22:00)
[2020-02-22] MEDS ORDERED: LUMIGAN 0.01% 2.5 ML OP SCH (22:00)
[2020-02-23 06:06] LABS: PROTIME 34.3 SECONDS (8.83-12.87)
[2020-02-23 06:11] LABS: ALBUMIN 2.9 g/dL (3.5-5.0); ANION GAP 6.4 MEQ/L (5-15); BILIRUBIN,TOTAL 0.5 mg/dL (0.2-1.3); Calcium 8.7 mg/dL (8.4-10.2); Creatinine 1 1.71 mg/dL (0.66-1.25); EST GLOMERULAR FILTRATION RATE 41.2 ML/MIN; Potassium 4.8 mmol/L (3.5-5.1); Total Protein 6.4 g/dL (6.3-8.2)
[2020-02-23 06:15] LABS: Absolute Neutrophil Ct (ANC) 9.05 (1.4-6.9); BASOPHIL % 0.2 % (0.0-0.4); Basophil (Absolute #) 0.02 (0-0.4); Eosinophil % 1.1 % (0.00-5.0); Eosinophil (Absolute #) 0.12 (0-0.5); Hematocrit 26.9 % (42-50); Hemoglobin 8.3 gm/dl (12.5-18.0); Lymphocyte (Absolute #) 1.22 (1.0-4.6); Mean Cell Volume 93.7 fl (78-100); Mean Corpuscular Hemoglobin 28.9 pg (26-32); Mean Corpuscular Hgb Concent. 30.9 g/dl (32-36); Mean Platelet Volume 12.8 fl (7.5-11.0); Monocyte (Absolute #) 0.67 (0.0-1.3); Neutrophil % 81.7 % (36.0-66.0); Platelet Count 133 K/mm3 (150-450); Red Blood Count 2.87 M/mm3 (4.1-5.6); Red Cell Distribution Width 14.9 % (11.5-14.0); White Blood Count 11.1 K/mm3 (4.0-10.5)
[2020-02-23] MEDS: Glucophage XR 500 MG PO SCH (09:06)
[2020-02-23] MEDS: Neurontin 400 MG PO SCH (09:08)
[2020-02-23] MEDS: Imdur 30 MG PO SCH (09:08)
[2020-02-23] MEDS: Pepcid 20 MG VIAL IV SCH (09:08)
[2020-02-23] MEDS: FEOSOL 325 MG PO SCH (09:08)
[2020-02-23] MEDS: Cozaar 50 MG PO SCH (09:08)
[2020-02-23] MEDS: hydroDIURIL 25 MG PO SCH (09:09)
[2020-02-23] MEDS: NORVASC 5 MG PO SCH (09:09)
[2020-02-23] MEDS: Protonix 40MG Tablet PO SCH (09:09)
[2020-02-23] MEDS: Zithromax 500 MG/ 250 ML NaCl Premix 500 MG/250 ML IVPB IV SCH (09:12)
[2020-02-23] MEDS: HUMALOG SQ PRN (09:13)
[2020-02-23] MEDS ORDERED: NON-FORMULARY ITEM (Insulin Glargine,Hum.Rec.Anlog [Basaglar Kwikpen U-100] 20 UNIT) SQ SCH (10:00)
[2020-02-23] MEDS ORDERED: Lantus Insulin SQ SCH (10:00)
[2020-02-23] MEDS ORDERED: NON-FORMULARY ITEM (Amlodipine Besylate [Amlodipine Besylate] 10 MG) PO SCH (10:00)
[2020-02-23] MEDS ORDERED: NON-FORMULARY ITEM (Omeprazole [Omeprazole] 40 MG) PO SCH (10:00)
[2020-02-23] MEDS ORDERED: ROCEPHIN 1 Gm-D5w 50 ml Bag** 1 G/50 ML IVPB IV SCH (10:00)
[2020-02-23] MEDS ORDERED: NON-FORMULARY ITEM (Losartan/Hydrochlorothiazide [Losartan-Hctz 100-25 Mg Tab] 1 TAB) PO SCH (10:00)
[2020-02-23 13:11] VITALS: BP 116/57; PULSE 92; O2SAT 98
--- NOTE | 2020-03-10 13:58 | SSS ---
ADMISSION DIAGNOSIS: COVID. DISCHARGE DIAGNOSES: 1) COVID. 2) HYPOXIA. HISTORY: The patient has had fever and chills, cough and feeling bad, a little confused which is normal for him. The family left a note. States he has really been coughing for five weeks. He is a smoker. He has a little bit of sharp chest pain occasionally. He was brought to the emergency room and was found to have a lobar pneumonia. He also has diabetes mellitus, hypertension, chronic obstructive pulmonary disease, and had COVID in the past, I think, three weeks ago. His blood cultures grew some gram-positive for cocci. He was placed on Levaquin. HOME MEDICATIONS: Includes gabapentin 800 mg twice a day for neuropathy, atorvastatin 40 q.d., Norvasc 10 q.d. for hypertension, hydrocodone 10/325 mg 1 every six hours for back pain, losartan/hydrochlorothiazide 100 mg for hypertension, Ritalin 1 q.d. for insomnia, insulin glargine 20 units a day, metformin 1,000 units b.i.d., Nitro PRN, Coumadin 5 mg a day. ALLERGIES: HYDROMORPHONE. OXYCODONE. IODINATED CONTRAST. REVIEW OF SYSTEMS: HEENT: Hard of hearing. CHEST: Short of breath on exertion. CVS: Slightly irregularly. No murmurs or gallops. CHEST: Few crackles on the right side. ABDOMEN: No tenderness or organomegaly. EXTREMITIES: Degenerative changes of the knees. Tenderness over the lower back. HOSPITAL COURSE: The patient presented to the emergency room and had elevated white count and probably a chest x-ray it looks like. He had atrial fibrillation and was admitted for treatment of his pneumonia. He apparently had COVID treated as an outpatient several weeks ago. PLAN: The patient was treated with Levaquin 500 q.d. for five days, Zithromax 250 for five days. He really improved tremendously quickly. His white count came down to 11,800 in the morning. He was demanding to go home. He was alert and orientated. He was ambulatory without any problems. He was on oxygen which he does have at home. IMPRESSION: Community acquired pneumonia, recent history of COVID. PLAN: Discharge on Levaquin 250 q.d. x5, Zithromax 250 q.d., plus his home medicines of Norvasc, atorvastatin, iron, gabapentin, hydrocodone, insulin, isosorbide, Metformin 1,000 b.i.d., losartan hydrochlorothiazide 100/25 q.d. Follow up with his regular doctor in one week. Call if there is increase in shortness of breath or increased fever. PROGNOSIS: Good.
== END 2020-02-23 12:50 | disposition home or self-care (01) | DRG 177 ==
LOC: ED 08:18 → MED SURG 12:30
PROVIDERS: ADMIT Family Medicine; ATTEND Family Medicine
DX: U07.1 COVID-19 (principal); J18.9 Pneumonia, unspecified organism; E11.9 Type 2 diabetes mellitus without complications; I10 Essential (primary) hypertension; R41.0 Disorientation, unspecified; Z86.73 Personal history of transient ischemic attack (TIA), and cerebral infarction without residual deficits; Z79.01 Long term (current) use of anticoagulants; Z79.899 Other long term (current) drug therapy; M54.9 Dorsalgia, unspecified; R09.02 Hypoxemia; I48.91 Unspecified atrial fibrillation; G62.9 Polyneuropathy, unspecified; G47.00 Insomnia, unspecified; F17.200 Nicotine dependence, unspecified, uncomplicated
CPT/HCPCS: 36000; 36415; 51702; 70450; 71045; 80053; 82962; 83605; 84484; 85025; 85027; 85610; 86308; 87040; 87631; 93005; 93041; 94760; 94762; 96360; 96365; 99285; J0456; J0696; J1817; A9270-GY

== ENCOUNTER 2020-03-15 07:43 | Inpatient (IN) | payer MEDICARE ==
[2020-03-15] MEDS ORDERED: solu-MEDROL 125 MG IV ONE (08:06)
[2020-03-15] MEDS ORDERED: Sodium Chloride 0.9% 1000 ML 1,000 ML IV SCH (08:15)
[2020-03-15 08:29] LABS: Absolute Neutrophil Ct (ANC) 15.57 (1.4-6.9); BASOPHIL % 0.4 % (0.0-0.4); Basophil (Absolute #) 0.06 (0-0.4); Eosinophil % 0.1 % (0.00-5.0); Eosinophil (Absolute #) 0.01 (0-0.5); Hematocrit 26.6 % (42-50); Hemoglobin 8.2 gm/dl (12.5-18.0); Lymphocyte (Absolute #) 0.53 (1.0-4.6); Lymphocytes % 3.2 % (24.0-44.0); Mean Corpuscular Hemoglobin 29.6 pg (26-32); Mean Corpuscular Hgb Concent. 30.8 g/dl (32-36); Mean Platelet Volume 11.8 fl (7.5-11.0); Monocyte (Absolute #) 0.55 (0.0-1.3); Monocytes % 3.3 % (0.0-12.0); Platelet Count 176 K/mm3 (150-450); Red Blood Count 2.77 M/mm3 (4.1-5.6); Red Cell Distribution Width 16.4 % (11.5-14.0); White Blood Count 16.7 K/mm3 (4.0-10.5)
[2020-03-15 08:30] LABS: A-aADO2 -3; ABG HEMOGLOBIN 9.4; ABG POTASSIUM 6.2 (3.5-5.1); ABG SITE LEFT BRACHIAL; ARTERIAL BLD GAS O2 SATURATION 98.5 % (95-100); ARTERIAL BLOOD GAS BASE EXCESS 4.2 (-2.0-2.0); ARTERIAL BLOOD GAS FIO2 21 %; ARTERIAL BLOOD GAS PCO2 35 mmHg (35-45); ARTERIAL BLOOD GAS PO2 109 mmHg (75-100); HCO3- 27.3 (22-28); HGB O2 SAT 96.6 g/dF (94-100); paO2 pAO1 1.03
--- NOTE | 2020-03-15 08:38 | ERPHSYRPT ---
- History of Present Illness Time Seen by Provider: 03/15/20 08:33 Source: patient Patient Subjective Stated Complaint: fever, sob, fatigue, muscle achiness Triage Nursing Assessment: Pt brought to the ER by his , febrile, tachycardic, achiness all over, short of breath, chest xray yesterday, pneumonia Physician History: fever, sob, fatigue, muscle achiness, Patient has COVID pneumonia Pt brought to the ER by his , febrile, tachycardic, achiness all over, short of breath, chest xray yesterday, pneumonia Timing/Duration: day(s) Activities at Onset: none Severity of Dyspnea-Max: moderate Severity of Dyspnea-Current: moderate Associated Symptoms: lightheadedness, weakness Allergies/Adverse Reactions: Iodinated Contrast Media [Iodinated Contrast Media - IV Dye] Allergy (Intermed iate, Verified 03/15/20 08:08) unknown- hives morphine Allergy (Intermediate, Verified 03/15/20 08:08) confusion and combative hydromorphone HCl [From Dilaudid] Adverse Reaction (Intermediate, Verified 03/15/20 08:08) confusion and combative oxycodone HCl [From OxyContin] Adverse Reaction (Intermediate, Verified 03/15/20 08:08) confusion/ combative Home Medications: Bimatoprost 0.01% [Lumigan 0.01% 2.5 ml] 1 drop OP HS 05/04/15 [History] Multivitamin/Iron/Folic Acid [Centrum Complete Multivit Tab] 1 each PO DAILY 05/04/15 [History] Tamsulosin HCl 0.4 mg [Flomax 0.4 MG] 0.4 mg PO HS 05/04/15 [History] Isosorbide Mononitrate 30 mg [Imdur 30 MG] 30 mg PO DAILY 08/09/16 [History] Amlodipine Besylate 10 mg PO DAILY 08/26/18 [History] Atorvastatin Calcium 40 mg PO HS 08/26/18 [History] Gabapentin 800 mg PO BID 08/26/18 [History] Hydrocodone/APAP 10/325 mg [[place] 10/325 MG Tablet] 1 tab PO Q6H PRN PRN 08/26/18 [History] Losartan/Hydrochlorothiazide [Losartan-Hctz 100-25 mg Tab] 1 tab PO DAILY 08/26/18 [History] Omeprazole 40 mg PO DAILY 08/26/18 [History] Methylphenidate 5 mg [Ritalin 5 MG] 5 mg PO DAILY 12/05/19 [History] Ferrous Sulfate [Iron] 325 mg PO DAILY 12/06/19 [History] Insulin Glargine,Hum.rec.anlog [Basaglar Kwikpen U-100] 20 unit SQ DAILY 12/06/19 [History] Metformin HCl [Glucophage Xr] 1,000 mg PO BID 12/06/19 [History] Nitroglycerin 0.4 mg Tablet [Nitrostat 0.4 MG Tablet] 0.4 mg SL Q5MIN PRN MR X 3 PRN 12/06/19 [History] Apixaban [Eliquis] 5 mg PO BID 03/15/20 [History] Hx Tetanus, Diphtheria Vaccination/Date Given: No (unknwon) Hx Influenza Vaccination/Date Given: Yes Hx Pneumococcal Vaccination/Date Given: Yes Travel Risk - International Travel Have you traveled outside of the country in past 3 weeks: No - Coronavirus Screening Are you exhibiting any of the following symptoms?: Yes Symptoms: Fever, Shortness of Breath, Headaches/Body Aches/Fatigue (Patient was COVID positive, 1 month ago, recently tested negative) Close contact with a COVID-19 positive Pt in past 14-21 Days: Yes - Review of Systems Constitutional: Fever, Fatigue, Lethargy, Weakness, No Chills Eyes: No Symptoms Ears, Nose, & Throat: No Symptoms Respiratory: Dyspnea, Dyspnea on Exertion (HAYES), Wheezing, No Cough Cardiac: No Chest Pain, No Edema, No Syncope Abdominal/Gastrointestinal: No Abdominal Pain, No Nausea, No Vomiting, No Diarrhea Genitourinary Symptoms: No Dysuria Musculoskeletal: No Back Pain, No Neck Pain Skin: No Rash Neurological: No Dizziness, No Focal Weakness, No Sensory Changes Psychological: No Symptoms Endocrine: No Symptoms All Other Systems: Reviewed and Negative - Past Medical History Pertinent Past Medical History: Yes Neurological History: No Pertinent History ENT History: Cataracts, Glaucoma Cardiac History: Hypertension, Other Respiratory History: Asthma Endocrine Medical History: Diabetes Type II Musculoskeletal History: Degenerative Disk Disease, Osteoarthritis, Other GI Medical History: GERD, Gallbladder Disease History: Other Psycho-Social History: Depression Male Reproductive Disorders: Prostate Problems Other Medical History: heart surgery, 4 stents. - Past Surgical History Past Surgical History: Yes Neuro Surgical History: No Pertinent History Cardiac: CABG, Cardiac Catheterization, Cardiac Stent Respiratory: No Pertinent History Gastrointestinal: Appendectomy, Cholecystectomy Genitourinary: No Pertinent History Musculoskeletal: Orthopedic Surgery Male Surgical History: No Pertinent History Other Surgical History: back surgery. fem pop. steriod injection in various joints - Social History Smoking Status: Former smoker How long have you smoked: 1975 Exposure to second hand smoke: No Drug Use: none Patient Lives Alone: No - Nursing Vital Signs Nursing Vital Signs: Initial Vital Signs Temperature 100.0 F 03/15/20 07:58 Pulse Rate 102 H 03/15/20 07:58 Respiratory Rate 20 03/15/20 07:58 Blood Pressure 136/73 03/15/20 07:58 O2 Sat by Pulse Oximetry 98 03/15/20 07:58 Pain Scale Pain Intensity 7 - Physical Exam General Appearance: moderate distress, alert Eye Exam: PERRL/EOMI Neck Exam: normal inspection, supple Respiratory Exam: diminished breath sounds, crackles/rales, rhonchi, wheezing Cardiovascular/Chest Exam: normal heart sounds, regular rate/rhythm Abdominal/Gastrointestinal Exam: soft, No tenderness, No distention, No mass Extremity Exam: non-tender, normal range of motion, normal inspection, no calf tenderness, no pedal edema Neurologic Exam: alert, oriented x 3, cooperative, 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 II-XII nml as tested, sensation nml, No motor deficits Skin Exam: normal color, warm, No dry SpO2 Interpretation: normal SpO2: 98 O2 Delivery: Room Air - Course Nursing assessment & vital signs reviewed: Yes EKG Interpreted by Me: Sinus Rhythm - Radiology Exams Chest X-ray Interpretation: Reviewed by me (done om 03/14/2020, showed mild improvement in pneumonia), Pneumonia Ordered Tests: Active Orders 24 hr Category Date Time Status Up Ad Floresita ROUTINE Activity 03/15/20 11:12 Active Admit as Inpatient ROUTINE Care 03/15/20 11:12 Active CO2 Monitoring CONTINUOUS Care 03/15/20 11:12 Completed Master Lay Out Specialist ROUTINE Care 03/15/20 11:12 Active Intake and Output 09,13,18,21 Care 03/15/20 11:12 Active Isolation, Initiate & Maintain Q6H Care 03/15/20 11:12 Active Miscellaneous Nursing Order ROUTINE Care 03/15/20 11:12 Active Jorje Arriola, Apply ROUTINE Care 03/15/20 11:12 Active Vital Signs Q2H Care 03/15/20 11:12 Active Consistent Carbohydrate Diet 1800 Calorie Diet 03/15/20 Lunch Active CHEST 1 VIEW (PORTABLE) Routine Exams 03/16/20 06:00 Completed ARTERIAL BLOOD GASES Stat Lab 03/15/20 08:25 Completed BMP AM.LAB Lab 03/16/20 06:10 Completed CBC W DIFF AM.LAB Lab 03/16/20 06:10 Completed D-DIMER QUANTITATIVE AM.LAB Lab 03/16/20 05:45 Completed Lactic Acid AM.LAB Lab 03/16/20 04:00 Completed Respiratory Therapy Consult ROUTINE RT 03/15/20 11:12 Completed Medication Summary Generic Name Dose Route Start Last Admin Trade Name Freq PRN Reason Stop Dose Admin Acetaminophen 650 mg 03/15/20 11:12 Tylenol 325 Mg PO 04/14/20 11:11 Q4H PRN PRN PAIN AND/OR FEVER Hydrocodone Bitart/Acetaminophen 1 tab 03/15/20 13:26 03/15/20 13:56 [place] 10/325 Mg Tablet PO 03/20/20 13:25 1 tab Q6H PRN PRN Administration PAIN Albuterol Sulfate 4 puff 03/15/20 12:13 Ventolin Common Canister IH 04/14/20 12:12 Q4H PRN PRN SHORTNESS OF BREATH/WHEEZING Amlodipine Besylate 10 mg 03/15/20 14:00 03/15/20 14:00 Norvasc 5 Mg PO 04/14/20 13:59 10 mg DAILY RUTH Administration Apixaban 5 mg 03/15/20 14:00 03/15/20 22:01 Eliquis 2.5 Mg Tablet PO 04/14/20 13:59 5 mg BID RUTH Administration Bimatoprost 0 ml 03/15/20 22:00 03/15/20 22:01 Lumigan 0.01% 2.5 Ml OP 04/14/20 21:59 2.5 ml HS RUTH Administration Famotidine 20 mg 03/15/20 11:12 03/15/20 22:00 Pepcid 20 Mg Vial IV 04/14/20 11:11 20 mg Q12HT RUTH Administration Ferrous Sulfate 325 mg 03/16/20 10:00 Feosol 325 Mg PO 04/15/20 09:59 DAILY RUTH Gabapentin 800 mg 03/15/20 14:00 03/15/20 22:01 Neurontin 400 Mg PO 04/14/20 13:59 800 mg BID RUTH Administration Hydrochlorothiazide 25 mg 03/15/20 14:00 03/15/20 14:00 Hydrodiuril 25 Mg PO 04/14/20 13:59 25 mg DAILY RUTH Administration Ceftriaxone Sodium/Dextrose 1 g in 50 mls @ 100 mls/hr 03/16/20 10:00 03/15/20 11:17 Rocephin 1 Gm-D5w 50 Ml Bag IV 04/15/20 09:59 Not Given Q24H10 RUTH Azithromycin 500 mg in 250 mls @ 250 mls/hr 03/16/20 10:00 Zithromax 500 Mg/ 250 Ml Nacl Premix IV 04/15/20 09:59 Q24H10 RUTH Insulin Glargine 20 unit 03/15/20 14:00 03/15/20 15:54 Lantus Insulin SQ 04/14/20 13:59 20 unit DAILY RUTH Administration Insulin Human Lispro 0 unit 03/15/20 11:12 03/16/20 08:41 Humalog SQ 04/14/20 11:11 5 unit UD PRN Administration HYPERGLYCEMIA Isosorbide Mononitrate 30 mg 03/15/20 14:00 03/15/20 13:55 Imdur 30 Mg PO 04/14/20 13:59 30 mg DAILY RUTH Administration Losartan Potassium 100 mg 03/15/20 14:00 03/15/20 14:00 Cozaar 50 Mg PO 04/14/20 13:59 100 mg DAILY RUTH Administration Metformin HCl 1,000 mg 03/16/20 08:00 03/16/20 08:09 Glucophage Xr 500 Mg PO 04/14/20 13:59 1,000 mg BIDWM RUTH Administration Methylphenidate HCl 5 mg 03/15/20 14:00 03/15/20 13:56 Ritalin 5 Mg PO 03/20/20 13:59 5 mg DAILY RUTH Administration Multivitamins Therapeutic 1 tab 03/16/20 10:00 Theragran Multivitamin PO 04/15/20 09:59 DAILY RUTH Nitroglycerin 0.4 mg 03/15/20 13:26 Nitrostat 0.4 Mg Tablet SL 04/14/20 13:25 Q5MIN PRN MR X 3 PRN CHEST PAIN Pantoprazole Sodium 40 mg 03/15/20 14:00 03/15/20 13:56 Protonix 40mg Tablet PO 04/14/20 13:59 40 mg DAILY RUTH Administration Simvastatin 40 mg 03/15/20 22:00 03/15/20 22:03 Zocor 20mg PO 04/14/20 21:59 40 mg HS RUTH Administration Tamsulosin HCl 0.4 mg 03/15/20 22:00 03/15/20 22:03 Flomax 0.4 Mg PO 04/14/20 21:59 0.4 mg HS RUTH Administration Discontinued Medications Generic Name Dose Route Start Last Admin Trade Name Freq PRN Reason Stop Dose Admin Albuterol Sulfate 4 puff 03/15/20 11:12 Ventolin Common Canister IH 04/14/20 11:11 QIDRT RUTH Sodium Chloride 1,000 mls @ 100 mls/hr 03/15/20 08:15 03/15/20 10:00 Sodium Chloride 0.9% 1000 Ml IV 04/14/20 08:14 100 mls/hr .Q10H RUTH Administration Sodium Chloride 1,000 mls @ 999 mls/hr 03/15/20 08:50 03/15/20 09:53 Sodium Chloride 0.9% 1000 Ml IV 03/15/20 09:50 Infused .Q1H1M STA Infusion Ceftriaxone Sodium/Dextrose 1 g in 50 mls @ 100 mls/hr 03/15/20 08:57 03/15/20 09:53 Rocephin 1 Gm-D5w 50 Ml Bag IV 03/15/20 09:26 Infused STAT STA Infusion Azithromycin 500 mg in 250 mls @ 250 mls/hr 03/15/20 08:57 03/15/20 10:01 Zithromax 500 Mg/ 250 Ml Nacl Premix IV 03/15/20 09:56 250 mls/hr STAT STA 250 mls/hr Administration Ceftriaxone Sodium/Dextrose Confirm 03/15/20 09:22 Rocephin 1 Gm-D5w 50 Ml Bag Administered 03/15/20 09:23 Dose 1 g in 50 mls @ ud IV .STK-MED ONE Azithromycin Confirm 03/15/20 09:57 Zithromax 500 Mg/ 250 Ml Nacl Premix Administered 03/15/20 09:58 Dose 500 mg in 250 mls @ ud IV .STK-MED ONE Sodium Chloride Confirm 03/15/20 08:50 Sodium Chloride 0.9% 1000 Ml Administered 03/15/20 08:51 Dose 1,000 mls @ ud .ROUTE .STK-MED ONE Sodium Chloride Confirm 03/15/20 09:57 Sodium Chloride 0.9% 1000 Ml Administered 03/15/20 09:58 Dose 1,000 mls @ ud .ROUTE .STK-MED ONE Azithromycin 500 mg in 250 mls @ 250 mls/hr 03/15/20 11:12 03/15/20 11:17 Zithromax 500 Mg/ 250 Ml Nacl Premix IV 04/14/20 11:11 Not Given Q24H10 RUTH Metformin HCl 1,000 mg 03/15/20 14:00 03/15/20 22:22 Glucophage Xr 500 Mg PO 04/14/20 13:59 Not Given BID RUTH Methylprednisolone Sodium Succinate 125 mg 03/15/20 08:06 03/15/20 08:55 Solu-Medrol 125 Mg IV 03/15/20 08:07 125 mg STAT ONE Administration Methylprednisolone Sodium Succinate Confirm 03/15/20 08:55 Solu-Medrol 125 Mg Administered 03/15/20 08:56 Dose 125 mg .ROUTE .STK-MED ONE Lab/Rad Data: Laboratory Result Diagrams 03/15/20 08:06 03/15/20 08:06 Laboratory Results 03/15/20 03/15/20 03/15/20 Range/Units 08:25 08:06 08:06 WBC 16.7 H (4.0-10.5) K/mm3 RBC 2.77 L (4.1-5.6) M/mm3 Hgb 8.2 L (12.5-18.0) gm/dl Hct 26.6 L (42-50) % MCV 96.0 (78-100) fl MCH 29.6 (26-32) pg MCHC 30.8 L (32-36) g/dl RDW 16.4 H (11.5-14.0) % Plt Count 176 (150-450) K/mm3 MPV 11.8 H (7.5-11.0) fl Gran % 93.0 H (36.0-66.0) % Eos # (Auto) 0.01 (0-0.5) Absolute Lymphs (auto) 0.53 L (1.0-4.6) Absolute Monos (auto) 0.55 (0.0-1.3) Lymphocytes % 3.2 L (24.0-44.0) % Monocytes % 3.3 (0.0-12.0) % Eosinophils % 0.1 (0.00-5.0) % Basophils % 0.4 (0.0-0.4) % Absolute Granulocytes 15.57 H (1.4-6.9) Basophils # 0.06 (0-0.4) Puncture Site LEFT BRACHIAL pCO2 35 (35-45) mmHg pO2 109 H (75-100) mmHg Base Excess 4.2 H (-2.0-2.0) O2 Saturation 96.6 (94-100) g/dF ABG pH 7.50 H (7.35-7.45) ABG HCO3 27.3 (22-28) ABG O2 Sat (Measured) 98.5 (95-100) % Devin Test NOT APPLICABLE A-a Gradient -3 a/A Ratio 1.03 Hemoglobin 9.4 Carboxyhemoglobin 1.0 (0.0-6.9) % THgb Methemoglobin 1.0 L (1.4-1.5) % Temperature 37.0 C POC O2 Flow Rate 21 % Sodium 134 L (137-145) mmol/L Potassium 6.2 H* 6.1 H* (3.5-5.1) mmol/L Chloride 104 (98-107) mmol/L Carbon Dioxide 26 (22-30) mmol/L Anion Gap 10.3 (5-15) MEQ/L BUN 23 H (9-20) mg/dL Creatinine 1.53 H (0.66-1.25) mg/dL Estimated GFR 46.9 ML/MIN Glucose 292 H (74-106) mg/dL Hemoglobin A1c (4.5-6.0) % Calcium 9.7 (8.4-10.2) mg/dL Total Bilirubin 0.50 (0.2-1.3) mg/dL AST 27 (17-59) U/L ALT 14 (0-50) U/L Alkaline Phosphatase 71 (38-126) U/L Serum Total Protein 7.3 (6.3-8.2) g/dL Albumin 3.6 (3.5-5.0) g/dL Slides for Path Review YES 03/15/20 Range/Units 08:00 WBC (4.0-10.5) K/mm3 RBC (4.1-5.6) M/mm3 Hgb (12.5-18.0) gm/dl Hct (42-50) % MCV (78-100) fl MCH (26-32) pg MCHC (32-36) g/dl RDW (11.5-14.0) % Plt Count (150-450) K/mm3 MPV (7.5-11.0) fl Gran % (36.0-66.0) % Eos # (Auto) (0-0.5) Absolute Lymphs (auto) (1.0-4.6) Absolute Monos (auto) (0.0-1.3) Lymphocytes % (24.0-44.0) % Monocytes % (0.0-12.0) % Eosinophils % (0.00-5.0) % Basophils % (0.0-0.4) % Absolute Granulocytes (1.4-6.9) Basophils # (0-0.4) Puncture Site pCO2 (35-45) mmHg pO2 (75-100) mmHg Base Excess (-2.0-2.0) O2 Saturation (94-100) g/dF ABG pH (7.35-7.45) ABG HCO3 (22-28) ABG O2 Sat (Measured) (95-100) % Devin Test A-a Gradient a/A Ratio Hemoglobin Carboxyhemoglobin (0.0-6.9) % THgb Methemoglobin (1.4-1.5) % Temperature C POC O2 Flow Rate % Sodium (137-145) mmol/L Potassium (3.5-5.1) mmol/L Chloride (98-107) mmol/L Carbon Dioxide (22-30) mmol/L Anion Gap (5-15) MEQ/L BUN (9-20) mg/dL Creatinine (0.66-1.25) mg/dL Estimated GFR ML/MIN Glucose (74-106) mg/dL Hemoglobin A1c 7.67 H (4.5-6.0) % Calcium (8.4-10.2) mg/dL Total Bilirubin (0.2-1.3) mg/dL AST (17-59) U/L ALT (0-50) U/L Alkaline Phosphatase (38-126) U/L Serum Total Protein (6.3-8.2) g/dL Albumin (3.5-5.0) g/dL Slides for Path Review - Progress Progress: unchanged Air Movement: fair Blood Culture(s) Obtained: Yes Antibiotics given: No Discussed with : Other (Dr Washburn) Will see patient in: hospital (observation) Counseled pt/family regarding: lab results, diagnosis, need for follow-up, rad results - Departure Departure Disposition: Observation Clinical Impression: Pneumonia due to COVID-19 virus Fever Qualifiers: Fever type: unspecified Qualified Code(s): R50.9 - Fever, unspecified Condition: Fair Critical Care Time: Yes Critical Care Time(excluding separately billable procedures): Critical 30-74 mins
[2020-03-15 08:46] LABS: ALBUMIN 3.6 g/dL (3.5-5.0); ANION GAP 10.3 MEQ/L (5-15); BILIRUBIN,TOTAL 0.5 mg/dL (0.2-1.3); Calcium 9.7 mg/dL (8.4-10.2); Creatinine 1 1.53 mg/dL (0.66-1.25); EST GLOMERULAR FILTRATION RATE 46.9 ML/MIN; Total Protein 7.3 g/dL (6.3-8.2)
[2020-03-15 08:50] LABS: Potassium 6.1 mmol/L (3.5-5.1)
[2020-03-15] MEDS ORDERED: Sodium Chloride 0.9% 1000 ML 1,000 ML ONE ×2 (08:50→09:57)
[2020-03-15] MEDS ORDERED: Sodium Chloride 0.9% 1000 ML 1,000 ML IV STA (08:50)
[2020-03-15] MEDS ORDERED: solu-MEDROL 125 MG ONE (08:55)
[2020-03-15] MEDS ORDERED: Zithromax 500 MG/ 250 ML NaCl Premix 500 MG/250 ML IVPB IV STA (08:57)
[2020-03-15] MEDS ORDERED: ROCEPHIN 1 Gm-D5w 50 ml Bag** 1 G/50 ML IVPB IV STA (08:57)
[2020-03-15] MEDS ORDERED: ROCEPHIN 1 Gm-D5w 50 ml Bag** 1 G/50 ML IVPB IV ONE (09:22)
[2020-03-15] MEDS ORDERED: Zithromax 500 MG/ 250 ML NaCl Premix 500 MG/250 ML IVPB IV ONE (09:57)
[2020-03-15] MEDS ORDERED: TYLENOL 325 MG PO PRN (11:12)
[2020-03-15] MEDS ORDERED: Zithromax 500 MG/ 250 ML NaCl Premix 500 MG/250 ML IVPB IV SCH (11:12)
[2020-03-15] MEDS ORDERED: VENTOLIN COMMON CANISTER IH SCH (11:12)
[2020-03-15] MEDS ORDERED: ENOXAPARIN SODIUM SQ SCH (11:12)
[2020-03-15] MEDS: ROCEPHIN 1 Gm-D5w 50 ml Bag** 1 G/50 ML IVPB IV SCH (11:17)
[2020-03-15] MEDS ORDERED: VENTOLIN COMMON CANISTER IH PRN (12:13)
[2020-03-15 12:58] LABS: Slide Review 1 YES
[2020-03-15] MEDS ORDERED: Nitrostat 0.4 MG Tablet SL PRN (13:26)
[2020-03-15] MEDS: Pepcid 20 MG VIAL IV SCH ×2 (13:54→22:00)
[2020-03-15] MEDS: Imdur 30 MG PO SCH (13:55)
[2020-03-15] MEDS: Glucophage XR 500 MG PO SCH ×3 (13:55→22:22)
[2020-03-15] MEDS: ELIQUIS 2.5 MG TABLET PO SCH ×2 (13:55→22:01)
[2020-03-15] MEDS: Ritalin 5 MG PO SCH (13:56)
[2020-03-15] MEDS: Protonix 40MG Tablet PO SCH (13:56)
[2020-03-15] MEDS: Norco 10/325 MG Tablet PO PRN (13:56)
[2020-03-15] MEDS: Cozaar 50 MG PO SCH (14:00)
[2020-03-15] MEDS: Neurontin 400 MG PO SCH ×2 (14:00→22:01)
[2020-03-15] MEDS: NORVASC 5 MG PO SCH (14:00)
[2020-03-15] MEDS: hydroDIURIL 25 MG PO SCH (14:00)
[2020-03-15] MEDS: Lantus Insulin SQ SCH (15:54)
[2020-03-15] MEDS: HUMALOG SQ PRN ×2 (17:21→22:05)
[2020-03-15] MEDS ORDERED: NON-FORMULARY ITEM (Atorvastatin Calcium [Atorvastatin Calcium] 40 MG) PO SCH (22:00)
[2020-03-15] MEDS ORDERED: NON-FORMULARY ITEM (Gabapentin [Gabapentin] 800 MG) PO SCH (22:00)
[2020-03-15] MEDS ORDERED: NON-FORMULARY ITEM (Apixaban [Eliquis] 5 MG) PO SCH (22:00)
[2020-03-15] MEDS: LUMIGAN 0.01% 2.5 ML OP SCH (22:01)
[2020-03-15] MEDS: Flomax 0.4 MG PO SCH (22:03)
[2020-03-15] MEDS: ZOCOR 20MG PO SCH (22:03)
[2020-03-16 06:40] LABS: BASOPHIL % 0.2 % (0.0-0.4); Basophil (Absolute #) 0.03 (0-0.4); Eosinophil (Absolute #) 0 (0-0.5); Hematocrit 24.1 % (42-50); Hemoglobin 7.5 gm/dl (12.5-18.0); Lymphocyte (Absolute #) 0.83 (1.0-4.6); Lymphocytes % 4.8 % (24.0-44.0); Mean Cell Volume 94.9 fl (78-100); Mean Corpuscular Hemoglobin 29.5 pg (26-32); Mean Corpuscular Hgb Concent. 31.1 g/dl (32-36); Mean Platelet Volume 12.4 fl (7.5-11.0); Monocyte (Absolute #) 0.62 (0.0-1.3); Monocytes % 3.6 % (0.0-12.0); Neutrophil % 91.4 % (36.0-66.0); Platelet Count 167 K/mm3 (150-450); Red Blood Count 2.54 M/mm3 (4.1-5.6); Red Cell Distribution Width 15.8 % (11.5-14.0); White Blood Count 17.3 K/mm3 (4.0-10.5)
[2020-03-16 06:55] LABS: ANION GAP 6.8 MEQ/L (5-15); Calcium 9.2 mg/dL (8.4-10.2); Creatinine 1 1.41 mg/dL (0.66-1.25); EST GLOMERULAR FILTRATION RATE 51.5 ML/MIN; Potassium 4.7 mmol/L (3.5-5.1)
[2020-03-16] MEDS: Glucophage XR 500 MG PO SCH ×2 (08:09→17:09)
--- NOTE | 2020-03-16 08:11 | XRAY ---
Indication: Pneumonia. Comparison: March 14, 2020. Portable chest demonstrates minimally worsening left base infiltrates/atelectasis without consolidation/large effusion. Right lung unchanged again with minimal infiltrates/atelectasis and a few calcified granulomas. Heart is not enlarged with CABG surgery. No new cardiopulmonary abnormalities.
[2020-03-16] MEDS: HUMALOG SQ PRN ×3 (08:41→17:10)
[2020-03-16] MEDS: THERAGRAN MULTIVITAMIN PO SCH (09:28)
[2020-03-16] MEDS: Pepcid 20 MG VIAL IV SCH ×2 (09:28→20:50)
[2020-03-16] MEDS: Ritalin 5 MG PO SCH (09:29)
[2020-03-16] MEDS: FEOSOL 325 MG PO SCH (09:29)
[2020-03-16] MEDS: Cozaar 50 MG PO SCH (09:29)
[2020-03-16] MEDS: Neurontin 400 MG PO SCH ×2 (09:29→20:50)
[2020-03-16] MEDS: hydroDIURIL 25 MG PO SCH (09:29)
[2020-03-16] MEDS: NORVASC 5 MG PO SCH (09:29)
[2020-03-16] MEDS: Protonix 40MG Tablet PO SCH (09:29)
[2020-03-16] MEDS: ROCEPHIN 1 Gm-D5w 50 ml Bag** 1 G/50 ML IVPB IV SCH (09:30)
[2020-03-16] MEDS: Lantus Insulin SQ SCH (09:30)
[2020-03-16] MEDS: Imdur 30 MG PO SCH (09:30)
[2020-03-16] MEDS ORDERED: [UNRECOGNIZED DRUG - OTHER] PO SCH (10:00)
[2020-03-16] MEDS ORDERED: NON-FORMULARY ITEM (Omeprazole [Omeprazole] 40 MG) PO SCH (10:00)
[2020-03-16] MEDS ORDERED: FOLIC ACID PO SCH (10:00)
[2020-03-16] MEDS ORDERED: MULTIVITAMIN PO SCH (10:00)
[2020-03-16] MEDS ORDERED: FLUZONE HIGH-DOSE QUAD 2020-21 IM ONE (10:00)
[2020-03-16] MEDS ORDERED: NON-FORMULARY ITEM (Losartan/Hydrochlorothiazide [Losartan-Hctz 100-25 Mg Tab] 1 TAB) PO SCH (10:00)
[2020-03-16] MEDS ORDERED: IRON PO SCH (10:00)
[2020-03-16] MEDS ORDERED: NON-FORMULARY ITEM (Insulin Glargine,Hum.Rec.Anlog [Basaglar Kwikpen U-100] 20 UNIT) SQ SCH (10:00)
[2020-03-16] MEDS ORDERED: NON-FORMULARY ITEM (Amlodipine Besylate [Amlodipine Besylate] 10 MG) PO SCH (10:00)
[2020-03-16] MEDS: Zithromax 500 MG/ 250 ML NaCl Premix 500 MG/250 ML IVPB IV SCH (10:04)
[2020-03-16] MEDS: ELIQUIS 2.5 MG TABLET PO SCH ×2 (10:04→20:50)
[2020-03-16] MEDS ORDERED: RETACRIT SQ SCH (12:00)
[2020-03-16] MEDS: Flomax 0.4 MG PO SCH (20:49)
[2020-03-16] MEDS: LUMIGAN 0.01% 2.5 ML OP SCH (20:49)
[2020-03-16] MEDS: ZOCOR 20MG PO SCH (20:50)
[2020-03-17 05:27] LABS: Absolute Neutrophil Ct (ANC) 7.93 (1.4-6.9); BASOPHIL % 0.5 % (0.0-0.4); Basophil (Absolute #) 0.05 (0-0.4); Eosinophil % 0.9 % (0.00-5.0); Eosinophil (Absolute #) 0.09 (0-0.5); Hemoglobin 7.5 gm/dl (12.5-18.0); Lymphocyte (Absolute #) 1.15 (1.0-4.6); Lymphocytes % 11.7 % (24.0-44.0); Mean Cell Volume 95.2 fl (78-100); Mean Corpuscular Hemoglobin 29.8 pg (26-32); Mean Corpuscular Hgb Concent. 31.3 g/dl (32-36); Mean Platelet Volume 11.5 fl (7.5-11.0); Monocyte (Absolute #) 0.58 (0.0-1.3); Monocytes % 5.9 % (0.0-12.0); Platelet Count 152 K/mm3 (150-450); Red Blood Count 2.52 M/mm3 (4.1-5.6); Red Cell Distribution Width 16.2 % (11.5-14.0); White Blood Count 9.8 K/mm3 (4.0-10.5)
[2020-03-17] MEDS: Glucophage XR 500 MG PO SCH (08:10)
[2020-03-17] MEDS: ROCEPHIN 1 Gm-D5w 50 ml Bag** 1 G/50 ML IVPB IV SCH (09:06)
[2020-03-17] MEDS: Pepcid 20 MG VIAL IV SCH (09:07)
[2020-03-17] MEDS: THERAGRAN MULTIVITAMIN PO SCH (09:31)
[2020-03-17] MEDS: NORVASC 5 MG PO SCH (09:31)
[2020-03-17] MEDS: Ritalin 5 MG PO SCH (09:31)
[2020-03-17] MEDS: Imdur 30 MG PO SCH (09:31)
[2020-03-17] MEDS: FEOSOL 325 MG PO SCH (09:31)
[2020-03-17] MEDS: hydroDIURIL 25 MG PO SCH (09:31)
[2020-03-17] MEDS: ELIQUIS 2.5 MG TABLET PO SCH (09:32)
[2020-03-17] MEDS: Cozaar 50 MG PO SCH (09:32)
[2020-03-17] MEDS: Neurontin 400 MG PO SCH (09:32)
[2020-03-17] MEDS: Protonix 40MG Tablet PO SCH (09:32)
[2020-03-17] MEDS: Zithromax 500 MG/ 250 ML NaCl Premix 500 MG/250 ML IVPB IV SCH (09:33)
[2020-03-17] MEDS: Lantus Insulin SQ SCH (09:33)
[2020-03-17] MEDS: Norco 10/325 MG Tablet PO PRN (10:30)
[2020-03-17 10:49] VITALS: O2SAT 97
[2020-03-17] MEDS: HUMALOG SQ PRN (12:04)
[2020-03-17 12:19] VITALS: BP 126/66; PULSE 73
--- NOTE | 2020-03-17 14:03 | HP ---
CHIEF COMPLAINT: Fever, chills, feels bad, shortness of breath. HISTORY OF PRESENT ILLNESS: A 80 year old white male who noticed last night he had fever, chills and achy all over. He appeared to be a little bit disjointed. He has trouble remembering things. He has been admitted here for COVID three weeks ago and readmitted shortly after that and went home and got bad again. In the emergency room he had a fever, aching all over, shortness of breath. He had a chest x-ray by the respiratory clinic yesterday which showed new infiltrate in the right upper side since his chest x-ray two weeks before. His white count was elevated today in the emergency room. He has been coughing. He is an ex-smoker. He has not smoked for a long time. He gives a history of deep venous thrombosis in the past. MEDICATIONS: [place] 1 drop h.s., multivitamins with iron 1 q.d., Flomax 0.4 q.d., Imdur 30 q.d., Norvasc 10 q.d., atorvastatin 40 q.d., gabapentin 800 b.i.d., Christoval 10 every six hours PRN, losartan hydrochlorothiazide 100/25 mg 1 q.d., Ritalin 5 q.a.m., iron 325 q.d. Glargine insulin 20 units a day, Metformin 1,000 mg b.i.d., Nitro PRN, Eliquis 5 mg b.i.d. ALLERGIES: MORPHINE (CONFUSION). DILAUDID. OXYCONTIN. CONTRAST DYE. PAST MEDICAL HISTORY: Coronary artery disease, benign prostatic hypertrophy, history of fractured hip after which he had deep venous thrombosis and remains anticoagulated. Hypertension. He also has a history of low hemoglobin for which he gets injections when he gets around 7 he states. PAST SURGICAL HISTORY: Gallbladder has been taken out. Cardiac surgery four stents and bypass. Appendectomy. Hip surgery on the left. Apparently had some back surgery in the past. SOCIAL HISTORY: The patient is and has a daughter. 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 He lives at home and is strong enough to be active enough to work on his truck yesterday. REVIEW OF SYSTEMS: HEENT: Hears pretty well. Sees okay. CHEST: No chest pain recently. Some shortness of breath. RESPIRATORY: Shortness of breath on exertion, none at rest. Wheezing. No cough. ABDOMEN: No abdominal pain. No nausea or vomiting. : No problems urinating as long as he takes Flomax. MUSCULOSKELETAL: No pain except in his hip at times and for that he takes Vicodin occasionally. PHYSICAL EXAMINATION: The patient is alert, orientated, pleasant gentleman in no severe distress as I examine him about noon on the day of admission. HEENT: Pupils equal and reactive to light. NECK: Supple without adenopathy. CHEST: Few wheezes on the right. Few crackles on the left. CVS: Regular rate. No murmurs or gallops. ABDOMEN: Soft. No masses or organomegaly. EXTREMITIES: Trace edema on the left, nontender. Moves all without problems. NEUROLOGIC: He is alert and orientated x3. However, he has trouble remembering things as recent as last night. LAB DATA AND TESTS: The patient's white count was 16.7, hemoglobin was 8.2, PLT 176,000, differential normal. Electrolytes potassium were mildly elevated at 6.1. IMPRESSION: 1) The patient has right lobe pneumonia with some elevated white count, some respiratory distress, fever. 2) He has a history of bone marrow suppression and requires shots to elevate his hemoglobin as it drops and it did drop down to 7.0 on the second day here. PLAN: Will continue anticoagulation, oxygen, nebulizer treatments if needed, IV antibiotics Zithromax and Rocephin. He received some IV steroids in the emergency room also which will keep his fever down tonight. It might elevated his white count. PROGNOSIS: Dieterich to be good. He does not seem to have recurrence of COVID. Test done several weeks ago was negative. CBC and chest x-ray are not typical of COVID.
== END 2020-03-17 13:40 | disposition home or self-care (01) | DRG 195 ==
LOC: ED 07:43 → MED SURG 11:11
PROVIDERS: ADMIT Family Medicine; ATTEND Family Medicine
DX: J18.9 Pneumonia, unspecified organism (principal); I25.10 Atherosclerotic heart disease of native coronary artery without angina pectoris; E11.9 Type 2 diabetes mellitus without complications; J44.9 Chronic obstructive pulmonary disease, unspecified; N40.0 Benign prostatic hyperplasia without lower urinary tract symptoms; I10 Essential (primary) hypertension; R51.9 Headache, unspecified; Z79.01 Long term (current) use of anticoagulants; Z79.899 Other long term (current) drug therapy; Z86.718 Personal history of other venous thrombosis and embolism; Z86.19 Personal history of other infectious and parasitic diseases
CPT/HCPCS: 36415; 36600; 71045; 80048; 80053; 82375; 82962; 83036; 83605; 85025; 85379; 87040; 93005; 94762; 96360; 96361; 96365; 96367; 96374; 99291; G0008; 82803; 90662; 99285; J0456; J0696; J1817; J2930; A9270-GY; Q5106

== ENCOUNTER 2020-07-23 09:54 | Inpatient (IN) | payer MEDICARE ==
[2020-07-23] MEDS ORDERED: FEVERALL 325 MG PR STA (10:07)
[2020-07-23] MEDS ORDERED: FEVERALL 650 MG PR ONE (10:08)
[2020-07-23] MEDS ORDERED: FEVERALL 650 MG ONE (10:15)
[2020-07-23] MEDS ORDERED: Sodium Chloride 0.9% 1000 ML 1,000 ML IV STA (10:16)
[2020-07-23] MEDS ORDERED: FEVERALL 325 MG ONE (10:16)
[2020-07-23] MEDS ORDERED: Sodium Chloride 0.9% 1000 ML 1,000 ML ONE (10:16)
[2020-07-23] MEDS ORDERED: Zofran 4 MG/2 ML VIAL IV ONE (10:26)
[2020-07-23] MEDS ORDERED: Zofran 4 MG/2 ML VIAL ONE (10:39)
--- NOTE | 2020-07-23 10:41 | ERPHSYRPT ---
- History of Present Illness Time Seen by Provider: 07/23/20 10:05 Source: family, EMS Exam Limitations: clinical condition Patient Subjective Stated Complaint: PT daughter states "HE started shaking around 8 am this morning. He was fine yesterday. He had a vice president industrial relations remove possible skin cancer yesterday from his face and ear." Triage Nursing Assessment: Pt presented alert and confused. Pt extremely hot to touch. PT knows his name but not much else. Pt in no apparent respiratory distress. pt moans and is holding his arms and leg stiff. Physician History: 80 years old male with multiple medical problems including coronary artery disease status post CABG, peripheral vascular disease on Eliquis, diabetes subha litus, hypertension, hyperlipidemia, COPD is brought in the ER by EMS with sudden onset chills and shaking with a fever of 102 on presentation in the ER. Patient is also confused and not acting at a his baseline. Patient is arousable to verbal commands and moving all 4 extremities. Did have history of Covid in last February. No new sick contact. History is limited secondary to his altered mental status. Timing/Duration: today, constant, sudden Fever Severity: moderate Fever Therapy YOUTH SUPPORT WORKER: none Associated Symptoms: confusion, nausea/vomiting, No cough, No shortness of breath, No syncope Allergies/Adverse Reactions: Iodinated Contrast Media [Iodinated Contrast Media - IV Dye] Allergy (Intermediate, Verified 03/15/20 08:08) unknown- hives morphine Allergy (Intermediate, Verified 03/15/20 08:08) confusion and combative hydromorphone HCl [From Dilaudid] Adverse Reaction (Intermediate, Verified 03/15/20 08:08) confusion and combative oxycodone HCl [From OxyContin] Adverse Reaction (Intermediate, Verified 03/15/20 08:08) confusion/ combative Home Medications: Bimatoprost 0.01% [Lumigan 0.01% 2.5 ml] 1 drop OP HS 05/04/15 [History] Multivitamin/Iron/Folic Acid [Centrum Complete Multivit Tab] 1 each PO DAILY 05/04/15 [History] Tamsulosin HCl 0.4 mg [Flomax 0.4 MG] 0.4 mg PO HS 05/04/15 [History] Isosorbide Mononitrate 30 mg [Imdur 30 MG] 30 mg PO DAILY 08/09/16 [History] Atorvastatin Calcium 40 mg PO HS 08/26/18 [History] Gabapentin 800 mg PO BID 08/26/18 [History] Hydrocodone/APAP 10/325 mg [[place] 10/325 MG Tablet] 1 tab PO Q6H PRN PRN 08/26/18 [History] Losartan/Hydrochlorothiazide [Losartan-Hctz 100-25 mg Tab] 1 tab PO DAILY 08/26/18 [History] Omeprazole 40 mg PO DAILY 08/26/18 [History] Methylphenidate 5 mg [Ritalin 5 MG] 5 mg PO DAILY 12/05/19 [History] Ferrous Sulfate [Iron] 325 mg PO DAILY 12/06/19 [History] Insulin Glargine,Hum.rec.anlog [Basaglar Kwikpen U-100] 20 unit SQ DAILY 12/06/19 [History] Metformin HCl [Glucophage Xr] 1,000 mg PO BID 12/06/19 [History] Nitroglycerin 0.4 mg Tablet [Nitrostat 0.4 MG Tablet] 0.4 mg SL Q5MIN PRN MR X 3 PRN 12/06/19 [History] Apixaban [Eliquis] 5 mg PO BID 03/15/20 [History] Hx Tetanus, Diphtheria Vaccination/Date Given: No (unknwon) Hx Influenza Vaccination/Date Given: Yes Hx Pneumococcal Vaccination/Date Given: Yes Immunizations Up to Date: Yes Travel Risk - International Travel Have you traveled outside of the country in past 3 weeks: No - Coronavirus Screening Are you exhibiting any of the following symptoms?: No Close contact with a COVID-19 positive Pt in past 14-21 Days: No - Review of Systems Constitutional: Fever, Chills, Fatigue, Weakness All Other Systems: Unable due to condition - Past Medical History Pertinent Past Medical History: Yes Neurological History: No Pertinent History ENT History: Cataracts, Glaucoma Cardiac History: Hypertension, Other Respiratory History: Asthma Endocrine Medical History: Diabetes Type II Musculoskeletal History: Degenerative Disk Disease, Osteoarthritis, Other GI Medical History: GERD, Gallbladder Disease History: Other Psycho-Social History: Depression Male Reproductive Disorders: Prostate Problems Other Medical History: heart surgery, 4 stents. - Past Surgical History Past Surgical History: Yes Neuro Surgical History: No Pertinent History Cardiac: CABG, Cardiac Catheterization, Cardiac Stent Respiratory: No Pertinent History Gastrointestinal: Appendectomy, Cholecystectomy Genitourinary: No Pertinent History Musculoskeletal: Orthopedic Surgery Male Surgical History: No Pertinent History Other Surgical History: back surgery. fem pop. steriod injection in various joints - Social History Smoking Status: Former smoker How long have you smoked: 1975 Exposure to second hand smoke: No Drug Use: none Patient Lives Alone: No - Nursing Vital Signs Nursing Vital Signs: Initial Vital Signs Temperature 102.4 F 07/23/20 09:56 Pulse Rate 122 H 07/23/20 09:56 Respiratory Rate 24 07/23/20 09:56 Blood Pressure 158/89 07/23/20 09:56 O2 Sat by Pulse Oximetry 92 L 07/23/20 09:56 Pain Scale Pain Intensity 4 - Physical Exam General Appearance: no apparent distress, lethargy Eye Exam: eyes nml inspection ENT Exam: no apparent trauma, hearing grossly normal, pharynx normal Neck Exam: normal inspection, non-tender, supple Respiratory Exam: normal breath sounds, chest non-tender, lungs clear Cardiovascular/Chest Exam: normal heart sounds, tachycardia Gastrointestinal/Abdominal Exam: soft, tenderness (Generalized chronic tenderness) Extremity Exam: non-tender, normal inspection Neurologic Exam: alert, pipe foreman II-XII nml as tested, No oriented x 3 Skin Exam: normal color SpO2 Interpretation: hypoxic SpO2: 92 O2 Delivery: Nasal Cannula - Course EKG Interpreted by Me: RATE ([id number]), Left Tillar Deviation, Right Bundle Branch Block (ST depression in anteroseptal leads.) Ordered Tests: Active Orders 24 hr Category Date Time Status EKG-ER Only STAT Care 07/23/20 10:26 Active Gamble [Catheter-Cowarts Gamble] STAT Care 07/23/20 11:16 Active IV Insertion STAT Care 07/23/20 10:26 Active NPO (ED) STAT Care 07/23/20 10:26 Active Oxygen-ED Only Nasal Cannula 3 lpm Care 07/23/20 10:31 Active CHEST 1 VIEW (PORTABLE) Stat Exams 07/23/20 10:31 Completed ARTERIAL BLOOD GASES Stat Lab 07/23/20 10:31 Ordered BLOOD CULTURE Stat Lab 07/23/20 10:35 Received CBC W DIFF Stat Lab 07/23/20 10:35 Completed CMP Stat Lab 07/23/20 10:35 Completed INFLUENZA A+B SETH Stat Lab 07/23/20 10:17 Completed LIPASE Stat Lab 07/23/20 10:35 Completed Lactic Acid Stat Lab 07/23/20 10:26 Completed TROPONIN Q3H Lab 07/23/20 10:35 Completed TROPONIN Q3H Lab 07/23/20 13:30 Ordered TROPONIN Q3H Lab 07/23/20 16:30 Ordered TROPONIN Q3H Lab 07/23/20 19:30 Ordered TROPONIN Q3H Lab 07/23/20 22:30 Ordered UA W/RFX UR CULTURE Stat Lab 07/23/20 10:35 Completed Medication Summary Discontinued Medications Generic Name Dose Route Start Last Admin Trade Name Freq PRN Reason Stop Dose Admin Acetaminophen 325 mg 07/23/20 10:07 07/23/20 10:17 Feverall 325 Mg [place] 07/23/20 10:08 325 mg STAT STA Administration Acetaminophen 650 mg 07/23/20 10:08 07/23/20 10:17 Feverall 650 Mg [place] 07/23/20 10:09 650 mg STAT ONE Administration Acetaminophen Confirm 07/23/20 10:15 Feverall 650 Mg Administered 07/23/20 10:16 Dose 650 mg .ROUTE .STK-MED ONE Acetaminophen Confirm 07/23/20 10:16 Feverall 325 Mg Administered 07/23/20 10:17 Dose 325 mg .ROUTE .STK-MED ONE Sodium Chloride 1,000 mls @ 999 mls/hr 07/23/20 10:16 07/23/20 11:20 Sodium Chloride 0.9% 1000 Ml IV 07/23/20 11:16 Infused .Q1H1M STA Infusion Sodium Chloride Confirm 07/23/20 10:16 Sodium Chloride 0.9% 1000 Ml Administered 07/23/20 10:17 Dose 1,000 mls @ ud .ROUTE .STK-MED ONE Piperacillin Sod/Tazobactam 100 mls @ 200 mls/hr 07/23/20 11:51 Sod 3.375 gm/ Sodium Chloride IV 07/23/20 12:20 STAT ONE Ondansetron HCl 4 mg 07/23/20 10:26 07/23/20 10:41 Zofran 4 Mg/2 Ml Vial IV 07/23/20 10:27 4 mg STAT ONE Administration Ondansetron HCl Confirm 07/23/20 10:39 Zofran 4 Mg/2 Ml Vial Administered 07/23/20 10:40 Dose 4 mg .ROUTE .STK-MED ONE Lab/Rad Data: Laboratory Result Diagrams 07/23/20 10:35 07/23/20 10:35 Laboratory Results 07/23/20 07/23/20 07/23/20 Range/Units 10:35 10:35 10:35 WBC (4.0-10.5) K/mm3 RBC (4.1-5.6) M/mm3 Hgb (12.5-18.0) gm/dl Hct (42-50) % MCV (78-100) fl MCH (26-32) pg MCHC (32-36) g/dl RDW (11.5-14.0) % Plt Count (150-450) K/mm3 MPV (7.5-11.0) fl Gran % (36.0-66.0) % Eos # (Auto) (0-0.5) Absolute Lymphs (auto) (1.0-4.6) Absolute Monos (auto) (0.0-1.3) Lymphocytes % (24.0-44.0) % Monocytes % (0.0-12.0) % Eosinophils % (0.00-5.0) % Basophils % (0.0-0.4) % Absolute Granulocytes (1.4-6.9) Basophils # (0-0.4) Sodium 136 L (137-145) mmol/L Potassium 5.2 H (3.5-5.1) mmol/L Chloride 103 (98-107) mmol/L Carbon Dioxide 25 (22-30) mmol/L Anion Gap 13.0 (5-15) MEQ/L BUN 25 H (9-20) mg/dL Creatinine 1.46 H (0.66-1.25) mg/dL Estimated GFR 49.5 ML/MIN Glucose 213 H (74-106) mg/dL Lactic Acid (0.4-2.0) Calcium 10.5 H (8.4-10.2) mg/dL Total Bilirubin 0.50 (0.2-1.3) mg/dL AST 29 (17-59) U/L ALT 14 (0-50) U/L Alkaline Phosphatase 52 (38-126) U/L Troponin I < 0.012 (0.000-0.034) ng/mL Serum Total Protein 7.8 (6.3-8.2) g/dL Albumin 4.2 (3.5-5.0) g/dL Lipase 80 (23-300) U/L Urine Color YELLOW (YELLOW) Urine Appearance CLEAR (CLEAR) Urine pH 8.0 (5-6) Ur Specific [place] 1.014 (1.005-1.025) Urine Protein 100 (Negative) Urine Ketones NEGATIVE (NEGATIVE) Urine Blood NEGATIVE (0-5) Saw/ul Urine Nitrite NEGATIVE (NEGATIVE) Urine Bilirubin NEGATIVE (NEGATIVE) Urine Urobilinogen NEGATIVE (0-1) mg/dL Ur Leukocyte Esterase NEGATIVE (NEGATIVE) Urine WBC (Auto) NONE (0-5) /HPF Urine RBC (Auto) 0-2 (0-2) /HPF U Epithel Cells (Auto) NONE (FEW) /HPF Urine Bacteria (Auto) NONE (NEGATIVE) /HPF Urine Culture Reflexed NO (NO) Urine Glucose NEGATIVE (NEGATIVE) mg/dL Influenza Type A Ag (NEGATIVE) Influenza Type B Ag (NEGATIVE) Group A Strep Antibody (NEGATIVE) Slides for Path Review 07/23/20 07/23/20 07/23/20 Range/Units 10:35 10:26 10:17 WBC 15.7 H (4.0-10.5) K/mm3 RBC 3.74 L (4.1-5.6) M/mm3 Hgb 10.9 L (12.5-18.0) gm/dl Hct 34.4 L (42-50) % MCV 92.0 (78-100) fl MCH 29.1 (26-32) pg MCHC 31.7 L (32-36) g/dl RDW 14.9 H (11.5-14.0) % Plt Count 142 L (150-450) K/mm3 MPV 12.0 H (7.5-11.0) fl Gran % 94.5 H (36.0-66.0) % Eos # (Auto) 0.02 (0-0.5) Absolute Lymphs (auto) 0.35 L (1.0-4.6) Absolute Monos (auto) 0.48 (0.0-1.3) Lymphocytes % 2.2 L (24.0-44.0) % Monocytes % 3.1 (0.0-12.0) % Eosinophils % 0.1 (0.00-5.0) % Basophils % 0.1 (0.0-0.4) % Absolute Granulocytes 14.86 H (1.4-6.9) Basophils # 0.02 (0-0.4) Sodium (137-145) mmol/L Potassium (3.5-5.1) mmol/L Chloride (98-107) mmol/L Carbon Dioxide (22-30) mmol/L Anion Gap (5-15) MEQ/L BUN (9-20) mg/dL Creatinine (0.66-1.25) mg/dL Estimated GFR ML/MIN Glucose (74-106) mg/dL Lactic Acid 1.2 (0.4-2.0) Calcium (8.4-10.2) mg/dL Total Bilirubin (0.2-1.3) mg/dL AST (17-59) U/L ALT (0-50) U/L Alkaline Phosphatase (38-126) U/L Troponin I (0.000-0.034) ng/mL Serum Total Protein (6.3-8.2) g/dL Albumin (3.5-5.0) g/dL Lipase (23-300) U/L Urine Color (YELLOW) Urine Appearance (CLEAR) Urine pH (5-6) Ur Specific [place] (1.005-1.025) Urine Protein (Negative) Urine Ketones (NEGATIVE) Urine Blood (0-5) Saw/ul Urine Nitrite (NEGATIVE) Urine Bilirubin (NEGATIVE) Urine Urobilinogen (0-1) mg/dL Ur Leukocyte Esterase (NEGATIVE) Urine WBC (Auto) (0-5) /HPF Urine RBC (Auto) (0-2) /HPF U Epithel Cells (Auto) (FEW) /HPF Urine Bacteria (Auto) (NEGATIVE) /HPF Urine Culture Reflexed (NO) Urine Glucose (NEGATIVE) mg/dL Influenza Type A Ag NEGATIVE (NEGATIVE) Influenza Type B Ag NEGATIVE (NEGATIVE) Group A Strep Antibody (NEGATIVE) Slides for Path Review YES 07/23/20 Range/Units 10:17 WBC (4.0-10.5) K/mm3 RBC (4.1-5.6) M/mm3 Hgb (12.5-18.0) gm/dl Hct (42-50) % MCV (78-100) fl MCH (26-32) pg MCHC (32-36) g/dl RDW (11.5-14.0) % Plt Count (150-450) K/mm3 MPV (7.5-11.0) fl Gran % (36.0-66.0) % Eos # (Auto) (0-0.5) Absolute Lymphs (auto) (1.0-4.6) Absolute Monos (auto) (0.0-1.3) Lymphocytes % (24.0-44.0) % Monocytes % (0.0-12.0) % Eosinophils % (0.00-5.0) % Basophils % (0.0-0.4) % Absolute Granulocytes (1.4-6.9) Basophils # (0-0.4) Sodium (137-145) mmol/L Potassium (3.5-5.1) mmol/L Chloride (98-107) mmol/L Carbon Dioxide (22-30) mmol/L Anion Gap (5-15) MEQ/L BUN (9-20) mg/dL Creatinine (0.66-1.25) mg/dL Estimated GFR ML/MIN Glucose (74-106) mg/dL Lactic Acid (0.4-2.0) Calcium (8.4-10.2) mg/dL Total Bilirubin (0.2-1.3) mg/dL AST (17-59) U/L ALT (0-50) U/L Alkaline Phosphatase (38-126) U/L Troponin I (0.000-0.034) ng/mL Serum Total Protein (6.3-8.2) g/dL Albumin (3.5-5.0) g/dL Lipase (23-300) U/L Urine Color (YELLOW) Urine Appearance (CLEAR) Urine pH (5-6) Ur Specific Cascade (1.005-1.025) Urine Protein (Negative) Urine Ketones (NEGATIVE) Urine Blood (0-5) Saw/ul Urine Nitrite (NEGATIVE) Urine Bilirubin (NEGATIVE) Urine Urobilinogen (0-1) mg/dL Ur Leukocyte Esterase (NEGATIVE) Urine WBC (Auto) (0-5) /HPF Urine RBC (Auto) (0-2) /HPF U Epithel Cells (Auto) (FEW) /HPF Urine Bacteria (Auto) (NEGATIVE) /HPF Urine Culture Reflexed (NO) Urine Glucose (NEGATIVE) mg/dL Influenza Type A Ag (NEGATIVE) Influenza Type B Ag (NEGATIVE) Group A Strep Antibody NOT DETECTED (NEGATIVE) Slides for Path Review - Progress Progress: improved, re-examined Progress Note: 07/23/20 12:24 80 years old is evaluated for sudden onset shivering and a temp of 102 on presentation in the ER. Patient was borderline hypoxic with sats around 89% on room air and improved to 96% on 3 L. Chest x-ray although did not show any acute cardiopulmonary findings. Patient does have a wound changes and had COVID-19 in February last year. EKG showed sinus tach with no acute ST elevation and negative initial troponin. Has white count of 15 with stable H&H and no UTI. Stable renal functions. Is given Tylenol, on reevaluation his fever is improved and patient is perked up really good and talking at his baseline. Is much less confused on reevaluation. Strep and flu were negative. I have given him a dose of Zosyn empirically and cultures are obtained. I do not know the exact source of his symptoms. We will continue with antibiotics until cultures come back. COVID-19 testing would be obtained. I have discussed with Dr. Mcmanus and patient is being admitted. Discussed with : Edi Will see patient in: hospital (observation) Counseled pt/family regarding: lab results, diagnosis, rad results - Departure Departure Disposition: Observation Clinical Impression: Confusion Fever Qualifiers: Fever type: unspecified Qualified Code(s): R50.9 - Fever, unspecified Condition: Stable Critical Care Time: Yes Critical Care Time(excluding separately billable procedures): Critical 30-74 mins Referrals: FLORIDALMA AVILES [Primary Care Provider] -
[2020-07-23 10:48] LABS: Absolute Neutrophil Ct (ANC) 14.86 (1.4-6.9); BASOPHIL % 0.1 % (0.0-0.4); Basophil (Absolute #) 0.02 (0-0.4); Eosinophil % 0.1 % (0.00-5.0); Eosinophil (Absolute #) 0.02 (0-0.5); Hematocrit 34.4 % (42-50); Hemoglobin 10.9 gm/dl (12.5-18.0); Lymphocyte (Absolute #) 0.35 (1.0-4.6); Lymphocytes % 2.2 % (24.0-44.0); Mean Corpuscular Hemoglobin 29.1 pg (26-32); Mean Corpuscular Hgb Concent. 31.7 g/dl (32-36); Monocyte (Absolute #) 0.48 (0.0-1.3); Monocytes % 3.1 % (0.0-12.0); Neutrophil % 94.5 % (36.0-66.0); Platelet Count 142 K/mm3 (150-450); Red Blood Count 3.74 M/mm3 (4.1-5.6); Red Cell Distribution Width 14.9 % (11.5-14.0); White Blood Count 15.7 K/mm3 (4.0-10.5)
[2020-07-23 10:50] LABS: Appearance CLEAR (CLEAR); Bilirubin NEGATIVE (NEGATIVE); Blood NEGATIVE Ery/ul (0-5); Glucose NEGATIVE (NEGATIVE); Ketones NEGATIVE (NEGATIVE); Leukocyte Esterase NEGATIVE (NEGATIVE); Nitrite NEGATIVE (NEGATIVE); Protein,Urine Dip 100 (Negative); RBC 0-2 /HPF (0-2); Specific Gravity 1.014 (1.005-1.025); Urobilinogen NEGATIVE mg/dL (0-1)
[2020-07-23 11:01] LABS: ALBUMIN 4.2 g/dL (3.5-5.0); BILIRUBIN,TOTAL 0.5 mg/dL (0.2-1.3); Calcium 10.5 mg/dL (8.4-10.2); Creatinine 1 1.46 mg/dL (0.66-1.25); EST GLOMERULAR FILTRATION RATE 49.5 ML/MIN; Potassium 5.2 mmol/L (3.5-5.1); Total Protein 7.8 g/dL (6.3-8.2)
[2020-07-23 11:20] LABS: INFLUENZA A NEGATIVE (NEGATIVE); INFLUENZA B NEGATIVE (NEGATIVE)
[2020-07-23 11:33] LABS: Slide Review 1 YES
--- NOTE | 2020-07-23 11:34 | XRAY ---
Indication: Fever. Acute mental status change. Comparison: March 16, 2020. Portable chest underinflated accentuating cardiopulmonary structures and crowding lung bases. No focal infiltrate, consolidation, or large effusion. Heart is borderline enlarged with again CABG surgery. Bony thorax intact again with osteopenia and degenerative changes. Impression: Nonacute underinflated chest with chronic features.
[2020-07-23] MEDS ORDERED: Zosyn 3.375 GM Vial 3.375 GM in Sodium Chloride 100ML MINI-BAG PLUS 100 ML IV ONE (11:51)
[2020-07-23] MEDS ORDERED: Zosyn 3.375 GM Vial IV ONE (12:28)
[2020-07-23] MEDS ORDERED: Sodium Chloride 100ML MINI-BAG PLUS 100 ML IV ONE (12:28)
[2020-07-23 12:59] LABS: INFLUENZA A NEGATIVE (NEGATIVE); INFLUENZA B NEGATIVE (NEGATIVE); RESPIRATORY SYNCTIAL VIRUS NEGATIVE (Negative)
[2020-07-23] MEDS ORDERED: DUONEB 0.5-3 MG/3 ml Neb IH PRN (15:26)
[2020-07-23] MEDS ORDERED: TYLENOL 325 MG PO PRN (15:26)
[2020-07-23] MEDS ORDERED: Zofran 4 MG/2 ML VIAL IV PRN (15:26)
[2020-07-23] MEDS: Zosyn 3.375 GM Vial 3.375 GM in Sodium Chloride 100ML MINI-BAG PLUS 100 ML IV SCH (18:31)
[2020-07-23] MEDS: HUMALOG SQ PRN (18:31)
[2020-07-23] MEDS ORDERED: Nitrostat 0.4 MG Tablet SL PRN (19:16)
[2020-07-23] MEDS ORDERED: ZOCOR 20MG ONE (21:21)
[2020-07-23] MEDS ORDERED: LIPITOR 40MG PO SCH (22:00)
[2020-07-23] MEDS: ELIQUIS 2.5 MG TABLET PO SCH (22:13)
[2020-07-23] MEDS: ZOCOR 20MG PO SCH (22:13)
[2020-07-23] MEDS: Flomax 0.4 MG PO SCH (22:14)
[2020-07-23] MEDS: Neurontin 400 MG PO SCH (22:14)
[2020-07-23] MEDS: LUMIGAN 0.01% 2.5 ML OP SCH (22:42)
[2020-07-24] MEDS: Zosyn 3.375 GM Vial 3.375 GM in Sodium Chloride 100ML MINI-BAG PLUS 100 ML IV SCH ×2 (00:10→06:26)
[2020-07-24 05:02] LABS: Absolute Neutrophil Ct (ANC) 17.55 (1.4-6.9); BASOPHIL % 0.1 % (0.0-0.4); Basophil (Absolute #) 0.02 (0-0.4); Eosinophil % 0.1 % (0.00-5.0); Eosinophil (Absolute #) 0.02 (0-0.5); Hematocrit 32.2 % (42-50); Hemoglobin 9.9 gm/dl (12.5-18.0); Lymphocyte (Absolute #) 1.58 (1.0-4.6); Lymphocytes % 7.9 % (24.0-44.0); Mean Cell Volume 92.5 fl (78-100); Mean Corpuscular Hemoglobin 28.4 pg (26-32); Mean Corpuscular Hgb Concent. 30.7 g/dl (32-36); Mean Platelet Volume 12.5 fl (7.5-11.0); Monocyte (Absolute #) 0.79 (0.0-1.3); Neutrophil % 87.9 % (36.0-66.0); Platelet Count 137 K/mm3 (150-450); Red Blood Count 3.48 M/mm3 (4.1-5.6); Red Cell Distribution Width 15.1 % (11.5-14.0)
[2020-07-24 05:17] LABS: ALBUMIN 3.3 g/dL (3.5-5.0); BILIRUBIN,TOTAL 0.7 mg/dL (0.2-1.3); Calcium 9.5 mg/dL (8.4-10.2); Creatinine 1 1.78 mg/dL (0.66-1.25); EST GLOMERULAR FILTRATION RATE 39.4 ML/MIN; Total Protein 6.6 g/dL (6.3-8.2)
[2020-07-24 05:18] LABS: Potassium 4.8 mmol/L (3.5-5.1)
[2020-07-24 05:29] LABS: ANION GAP 8.8 MEQ/L (5-15)
[2020-07-24] MEDS: HUMALOG SQ PRN ×3 (08:13→17:19)
--- NOTE | 2020-07-24 08:42 | HP ---
CHIEF COMPLAINT: Shaking chills and fever. HISTORY OF PRESENT ILLNESS: The patient is a 80 year-old white male patient who had removal performed of what sounds like a basal cell skin cancer on his forehead and in front of the left ear. Afterwards the patient began feeling odd and became stiff and shaky at times. By the time he made it to the emergency room he was running a 102F fever. The patient does have a history of COVID in February. The COVID test today was negative. The patient is admitted to the hospital for IV antibiotics and observation for what appears to be sepsis. PAST MEDICAL/SURGICAL HISTORY: Significant for coronary artery disease, diabetes mellitus type II, benign prostatic hypertrophy. The patient had also recently at the time he had the COVID he was fairly anemic but reports it responded to shots to bring his hemoglobin up. He had been in his usual state of health until went to the leadership recruiter yesterday. PHYSICAL EXAMINATION: Reveals a well-nourished, well-developed 80 year-old white male who is confused at times but able to come up with an answer given enough time. VITAL SIGNS: The patient's vital signs on admission showed his temperature 102.4F, pulse 122, respiratory rate 24 and blood pressure 158/89. O2 saturation was somewhat low initially at 89 but responded to supplemental oxygen bringing it up to 92. HEENT: The patient shows the bandaging over the left temporal and preauricular area of the head. Pupils equal round reactive to light. Extraocular movements intact. Oropharynx is pink and moist. NECK: Supple without lymphadenopathy, thyromegaly or JVD. CHEST: Clear to auscultation. HEART: Regular rate and rhythm. ABDOMEN: Soft. No palpable masses. EXTREMITIES: Without cyanosis, clubbing or edema. NEUROLOGIC: The patient shows no focal deficits but is somewhat suspected in regards to his thinking processes. LAB DATA AND TESTS: The patient's chest x-ray showed no acute pathology. His laboratory studies otherwise showed his lactic acid to not be elevated. COVID, influenza A and RSV were all negative. Strep screen was negative. His sugar was 213, BUN 25, creatinine 1.46, sodium 136, potassium 5.2. Liver enzymes were normal. His white count was 15,700, hemoglobin 10.9 and PLT count was 142,000 with 94.5% granulocytes. His troponin was less than 0.012. Again lactic acid was 1.2. ASSESSMENT: A patient with what appears to be sepsis from unknown source. COVID test was negative as was influenza. The patient has been cultured for blood and urine. He will be admitted to the hospital currently on IV Zosyn. We will add Vancomycin for better gram-positive coverage as well. We will recheck white count in the morning. We will check his lactic acid again today as on admission was normal. I will also check procalcitonin levels today and tomorrow morning as well. Due to the patient's dehydration add D5 with half normal saline at 50 cc/hour.
[2020-07-24] MEDS: FEOSOL 325 MG PO SCH (09:27)
[2020-07-24] MEDS: Neurontin 400 MG PO SCH ×2 (09:27→22:35)
[2020-07-24] MEDS: THERAGRAN MULTIVITAMIN PO SCH (09:28)
[2020-07-24] MEDS: Protonix 40MG Tablet PO SCH (09:28)
[2020-07-24] MEDS: Ritalin 5 MG PO SCH (09:28)
[2020-07-24] MEDS: Imdur 30 MG PO SCH (09:28)
[2020-07-24] MEDS: ELIQUIS 2.5 MG TABLET PO SCH ×2 (09:28→22:35)
[2020-07-24] MEDS: Lantus Insulin SQ SCH (09:28)
[2020-07-24] MEDS ORDERED: NON-FORMULARY ITEM (Insulin Glargine,Hum.Rec.Anlog [Basaglar Kwikpen U-100] 20 UNIT) SQ SCH (10:00)
[2020-07-24] MEDS ORDERED: NON-FORMULARY ITEM (Omeprazole [Omeprazole] 40 MG) PO SCH (10:00)
[2020-07-24] MEDS ORDERED: FOLIC ACID PO SCH (10:00)
[2020-07-24] MEDS ORDERED: PROTONIX 40 MG IV IV SCH (10:00)
[2020-07-24] MEDS ORDERED: MULTIVITAMIN PO SCH (10:00)
[2020-07-24] MEDS ORDERED: IRON PO SCH (10:00)
[2020-07-24] MEDS ORDERED: [UNRECOGNIZED DRUG - OTHER] PO SCH (10:00)
[2020-07-24] MEDS: NORCO PO PRN ×2 (10:16→16:28)
[2020-07-24] MEDS: Dextrose 5% -0.45 NaCl 1000 ML 1,000 ML IV SCH (10:17)
[2020-07-24] MEDS: VANCOMYCIN 1 GRAM/200 ML BAG 1 GM/200 ML PIGGYBACK IV SCH (10:18)
[2020-07-24] MEDS: Zosyn 2.25 GM 2.25 GM in Sodium Chloride 100ML MINI-BAG PLUS 100 ML IV SCH ×3 (11:57→23:40)
[2020-07-24] MEDS: ZOCOR 20MG PO SCH (22:35)
[2020-07-24] MEDS: Flomax 0.4 MG PO SCH (22:35)
[2020-07-24] MEDS: LUMIGAN 0.01% 2.5 ML OP SCH (22:36)
[2020-07-25 05:20] LABS: Absolute Neutrophil Ct (ANC) 7.97 (1.4-6.9); BASOPHIL % 0.3 % (0.0-0.4); Basophil (Absolute #) 0.03 (0-0.4); Eosinophil % 2.5 % (0.00-5.0); Eosinophil (Absolute #) 0.24 (0-0.5); Hematocrit 29.5 % (42-50); Lymphocyte (Absolute #) 1.18 (1.0-4.6); Lymphocytes % 12.1 % (24.0-44.0); Mean Cell Volume 92.5 fl (78-100); Mean Corpuscular Hemoglobin 28.2 pg (26-32); Mean Corpuscular Hgb Concent. 30.5 g/dl (32-36); Mean Platelet Volume 12.1 fl (7.5-11.0); Monocyte (Absolute #) 0.34 (0.0-1.3); Monocytes % 3.5 % (0.0-12.0); Neutrophil % 81.6 % (36.0-66.0); Platelet Count 126 K/mm3 (150-450); Red Blood Count 3.19 M/mm3 (4.1-5.6); Red Cell Distribution Width 14.8 % (11.5-14.0); White Blood Count 9.8 K/mm3 (4.0-10.5)
[2020-07-25] MEDS: Zosyn 2.25 GM 2.25 GM in Sodium Chloride 100ML MINI-BAG PLUS 100 ML IV SCH ×4 (05:41→23:41)
[2020-07-25 05:54] LABS: ALBUMIN 3.2 g/dL (3.5-5.0); ANION GAP 8.9 MEQ/L (5-15); BILIRUBIN,TOTAL 0.3 mg/dL (0.2-1.3); Calcium 9.2 mg/dL (8.4-10.2); Creatinine 1 1.94 mg/dL (0.66-1.25); EST GLOMERULAR FILTRATION RATE 35.7 ML/MIN; Potassium 4.3 mmol/L (3.5-5.1); Total Protein 6.2 g/dL (6.3-8.2)
[2020-07-25] MEDS: Neurontin 400 MG PO SCH ×2 (10:25→19:58)
[2020-07-25] MEDS: Ritalin 5 MG PO SCH (10:26)
[2020-07-25] MEDS: ELIQUIS 2.5 MG TABLET PO SCH ×2 (10:27→19:56)
[2020-07-25] MEDS: THERAGRAN MULTIVITAMIN PO SCH (10:27)
[2020-07-25] MEDS: Protonix 40MG Tablet PO SCH (10:27)
[2020-07-25] MEDS: Lantus Insulin SQ SCH (10:27)
[2020-07-25] MEDS: FEOSOL 325 MG PO SCH (10:27)
[2020-07-25] MEDS: Imdur 30 MG PO SCH (10:27)
[2020-07-25] MEDS: VANCOMYCIN 1 GRAM/200 ML BAG 1 GM/200 ML PIGGYBACK IV SCH (10:28)
[2020-07-25] MEDS: HUMALOG SQ PRN ×3 (12:29→22:01)
[2020-07-25] MEDS: Flomax 0.4 MG PO SCH (19:57)
[2020-07-25] MEDS: ZOCOR 20MG PO SCH (19:59)
[2020-07-25] MEDS: LUMIGAN 0.01% 2.5 ML OP SCH (20:00)
[2020-07-26] MEDS: Zosyn 2.25 GM 2.25 GM in Sodium Chloride 100ML MINI-BAG PLUS 100 ML IV SCH ×3 (05:52→18:30)
[2020-07-26 06:37] LABS: Absolute Neutrophil Ct (ANC) 5.36 (1.4-6.9); BASOPHIL % 0.4 % (0.0-0.4); Basophil (Absolute #) 0.03 (0-0.4); Eosinophil % 3.2 % (0.00-5.0); Eosinophil (Absolute #) 0.23 (0-0.5); Hematocrit 29.6 % (42-50); Hemoglobin 9.3 gm/dl (12.5-18.0); Lymphocyte (Absolute #) 1.31 (1.0-4.6); Mean Cell Volume 92.5 fl (78-100); Mean Corpuscular Hemoglobin 29.1 pg (26-32); Mean Corpuscular Hgb Concent. 31.4 g/dl (32-36); Mean Platelet Volume 12.1 fl (7.5-11.0); Monocyte (Absolute #) 0.34 (0.0-1.3); Monocytes % 4.7 % (0.0-12.0); Neutrophil % 73.7 % (36.0-66.0); Platelet Count 135 K/mm3 (150-450); Red Cell Distribution Width 14.7 % (11.5-14.0); White Blood Count 7.3 K/mm3 (4.0-10.5)
[2020-07-26 06:59] LABS: ALBUMIN 3.4 g/dL (3.5-5.0); ANION GAP 6.9 MEQ/L (5-15); BILIRUBIN,TOTAL 0.3 mg/dL (0.2-1.3); Calcium 9.7 mg/dL (8.4-10.2); Creatinine 1 1.74 mg/dL (0.66-1.25); EST GLOMERULAR FILTRATION RATE 40.4 ML/MIN; Potassium 4.1 mmol/L (3.5-5.1); Total Protein 6.5 g/dL (6.3-8.2)
[2020-07-26] MEDS: ELIQUIS 2.5 MG TABLET PO SCH ×2 (09:38→20:15)
[2020-07-26] MEDS: Protonix 40MG Tablet PO SCH (09:38)
[2020-07-26] MEDS: Neurontin 400 MG PO SCH ×2 (09:38→20:17)
[2020-07-26] MEDS: Ritalin 5 MG PO SCH (09:38)
[2020-07-26] MEDS: Imdur 30 MG PO SCH (09:38)
[2020-07-26] MEDS: FEOSOL 325 MG PO SCH (09:38)
[2020-07-26] MEDS: THERAGRAN MULTIVITAMIN PO SCH (09:38)
[2020-07-26] MEDS: VANCOMYCIN 1 GRAM/200 ML BAG 1 GM/200 ML PIGGYBACK IV SCH (09:43)
[2020-07-26] MEDS: Lantus Insulin SQ SCH (10:01)
[2020-07-26] MEDS: HUMALOG SQ PRN ×2 (12:21→20:18)
--- NOTE | 2020-07-26 14:38 | PCM.NOTE ---
Date and Time: 07/26/20 141 Subjective Assessment: Patient is feeling well and is more active,asking to go home.Is on Zosyn and Vancomycin for sepsis. Blood culture no growth so far. Procalcitonin levels are coming down from 4.7 to 2.0, WBC down to 7,300 from 20,000. Appetite is good,no abdominal pain,no chest pain,no SOB. Objective Exam General Appearance: no apparent distress Neurologic Exam: alert, oriented x 3, cooperative, normal mood/affect Skin Exam: normal color, warm, dry Eye Exam: eyes nml inspection Ears, Nose, Throat Exam: normal ENT inspection Neck Exam: normal inspection Respiratory Exam: normal breath sounds, lungs clear Cardiovascular Exam: regular rate/rhythm, normal heart sounds Gastrointestinal/Abdomen Exam: soft, normal bowel sounds (nontender) Extremity Exam: normal inspection (trace pedal edema left(chronic S/P tx PAD)) OBJECTIVE DATA Vital Signs: Vital Signs - 24 hr Temp Pulse Resp BP Pulse Ox 07/26/20 12:00 97.7 F 76 18 149/72 96 07/26/20 08:00 98.4 F 80 20 178/74 95 07/26/20 07:04 68 16 97 07/26/20 03:52 98.2 F 65 16 141/62 98 07/25/20 23:38 97.8 F 57 L 20 158/68 97 07/25/20 19:29 97.6 F 60 18 132/69 98 07/25/20 19:22 60 18 98 07/25/20 16:00 97.5 F 63 18 163/70 97 Pain Assessment - Last Documented Pain Intensity 8 Pain Scale Used 0-10 Pain Scale Intake and Output: Intake & Output 07/24/20 07/25/20 07/26/20 07/27/20 11:59 11:59 11:59 11:59 Intake Total 960 2037 2120 Output Total 2350 1850 1400 Balance -1390 187 720 Weight 82.6 kg 84 kg 84.1 kg Lab Results: Lab Results-Last 24 Hours 07/25/20 07/25/20 07/26/20 Range/Units 16:35 20:46 05:50 WBC 7.3 (4.0-10.5) K/mm3 RBC 3.20 L (4.1-5.6) M/mm3 Hgb 9.3 L (12.5-18.0) gm/dl Hct 29.6 L (42-50) % MCV 92.5 (78-100) fl MCH 29.1 (26-32) pg MCHC 31.4 L (32-36) g/dl RDW 14.7 H (11.5-14.0) % Plt Count 135 L (150-450) K/mm3 MPV 12.1 H (7.5-11.0) fl Gran % 73.7 H (36.0-66.0) % Eos # (Auto) 0.23 (0-0.5) Absolute Lymphs (auto) 1.31 (1.0-4.6) Absolute Monos (auto) 0.34 (0.0-1.3) Lymphocytes % 18.0 L (24.0-44.0) % Monocytes % 4.7 (0.0-12.0) % Eosinophils % 3.2 (0.00-5.0) % Basophils % 0.4 (0.0-0.4) % Absolute Granulocytes 5.36 (1.4-6.9) Basophils # 0.03 (0-0.4) Sodium (137-145) mmol/L Potassium (3.5-5.1) mmol/L Chloride (98-107) mmol/L Carbon Dioxide (22-30) mmol/L Anion Gap (5-15) MEQ/L BUN (9-20) mg/dL Creatinine (0.66-1.25) mg/dL Estimated GFR ML/MIN Glucose (74-106) mg/dL POC Glucometer 297 H 203 H (74 to 106) mg/dL Calcium (8.4-10.2) mg/dL Total Bilirubin (0.2-1.3) mg/dL AST (17-59) U/L ALT (0-50) U/L Alkaline Phosphatase (38-126) U/L Serum Total Protein (6.3-8.2) g/dL Albumin (3.5-5.0) g/dL Procalcitonin (0.030-0.080) ng/mL 07/26/20 07/26/20 07/26/20 Range/Units 05:50 05:50 07:32 WBC (4.0-10.5) K/mm3 RBC (4.1-5.6) M/mm3 Hgb (12.5-18.0) gm/dl Hct (42-50) % MCV (78-100) fl MCH (26-32) pg MCHC (32-36) g/dl RDW (11.5-14.0) % Plt Count (150-450) K/mm3 MPV (7.5-11.0) fl Gran % (36.0-66.0) % Eos # (Auto) (0-0.5) Absolute Lymphs (auto) (1.0-4.6) Absolute Monos (auto) (0.0-1.3) Lymphocytes % (24.0-44.0) % Monocytes % (0.0-12.0) % Eosinophils % (0.00-5.0) % Basophils % (0.0-0.4) % Absolute Granulocytes (1.4-6.9) Basophils # (0-0.4) Sodium 136 L (137-145) mmol/L Potassium 4.1 (3.5-5.1) mmol/L Chloride 105 (98-107) mmol/L Carbon Dioxide 28 (22-30) mmol/L Anion Gap 6.9 (5-15) MEQ/L BUN 26 H (9-20) mg/dL Creatinine 1.74 H (0.66-1.25) mg/dL Estimated GFR 40.4 ML/MIN Glucose 170 H (74-106) mg/dL POC Glucometer 173 H (74 to 106) mg/dL Calcium 9.7 (8.4-10.2) mg/dL Total Bilirubin 0.30 (0.2-1.3) mg/dL AST 17 (17-59) U/L ALT 9 (0-50) U/L Alkaline Phosphatase 36 L (38-126) U/L Serum Total Protein 6.5 (6.3-8.2) g/dL Albumin 3.4 L (3.5-5.0) g/dL Procalcitonin 2.010 H* (0.030-0.080) ng/mL 07/26/20 Range/Units 11:28 WBC (4.0-10.5) K/mm3 RBC (4.1-5.6) M/mm3 Hgb (12.5-18.0) gm/dl Hct (42-50) % MCV (78-100) fl MCH (26-32) pg MCHC (32-36) g/dl RDW (11.5-14.0) % Plt Count (150-450) K/mm3 MPV (7.5-11.0) fl Gran % (36.0-66.0) % Eos # (Auto) (0-0.5) Absolute Lymphs (auto) (1.0-4.6) Absolute Monos (auto) (0.0-1.3) Lymphocytes % (24.0-44.0) % Monocytes % (0.0-12.0) % Eosinophils % (0.00-5.0) % Basophils % (0.0-0.4) % Absolute Granulocytes (1.4-6.9) Basophils # (0-0.4) Sodium (137-145) mmol/L Potassium (3.5-5.1) mmol/L Chloride (98-107) mmol/L Carbon Dioxide (22-30) mmol/L Anion Gap (5-15) MEQ/L BUN (9-20) mg/dL Creatinine (0.66-1.25) mg/dL Estimated GFR ML/MIN Glucose (74-106) mg/dL POC Glucometer 266 H (74 to 106) mg/dL Calcium (8.4-10.2) mg/dL Total Bilirubin (0.2-1.3) mg/dL AST (17-59) U/L ALT (0-50) U/L Alkaline Phosphatase (38-126) U/L Serum Total Protein (6.3-8.2) g/dL Albumin (3.5-5.0) g/dL Procalcitonin (0.030-0.080) ng/mL Multi-Disciplinary Progress Notes: Multi-Disciplinary Progress Notes 07/25/20 14:50 Physical Therapy Note by Josy Ojeda PT. REPORTS HE IS FEELING BETTER. STATES HE WAS NOT ON O2 AT HOME, BUT IS ON 3L TODAY. AGREEABLE TO P.T. PT. IN CHAIR UPON P.T. ARRIVAL TO ROOM. SIT TO STAND MOD I. PT. AMBULATED ~ 150' W/ 2-3L O2 AND SATS 95%+. NOTED TENDENCY TO SHUFFLE AND DECREASED FOOT CLEARANCE AND STRIDE LENGTH BILATERALLY. SLIGHTLY SHORTER STRIDE L LE THAN R. PT. AMBULATED W/ CGA-SBA. REPORTS HE DOES NOT USE AN A.D. AT HOME. ABLE TO PERFORM SIT TO SUPINE MOD I. DISCUSSED DECREASING O2 LEVEL W/ GINA PT'S NURSE SATS WERE WNL ON 2L WHILE AMBULATING. NSG TO MONITOR SATS. FEEL PT. IS SAFE TO D/C HOME WHEN MEDICALLY STABLE. SHOULD WALK W/ NSG OVER THE WEEKEND. 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 Is on IV Zosyn and Vancomycin with good response clinically and labs WBC 20,000 down to 7,300. Blood cultures no growth. 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
[2020-07-26] MEDS: Dextrose 5% -0.45 NaCl 1000 ML 1,000 ML IV SCH (18:39)
[2020-07-26] MEDS: Flomax 0.4 MG PO SCH (20:16)
[2020-07-26] MEDS: LUMIGAN 0.01% 2.5 ML OP SCH (20:17)
[2020-07-26] MEDS: ZOCOR 20MG PO SCH (20:18)
[2020-07-27] MEDS: Zosyn 2.25 GM 2.25 GM in Sodium Chloride 100ML MINI-BAG PLUS 100 ML IV SCH ×3 (00:07→13:01)
[2020-07-27] MEDS: NORCO PO PRN (05:25)
[2020-07-27] MEDS ORDERED: Sodium Chloride 100ML MINI-BAG PLUS 100 ML IV ONE (05:42)
[2020-07-27] MEDS: Ritalin 5 MG PO SCH (09:21)
[2020-07-27] MEDS: Imdur 30 MG PO SCH (09:21)
[2020-07-27] MEDS: FEOSOL 325 MG PO SCH (09:22)
[2020-07-27] MEDS: ELIQUIS 2.5 MG TABLET PO SCH (09:22)
[2020-07-27] MEDS: Neurontin 400 MG PO SCH (09:22)
[2020-07-27] MEDS: Protonix 40MG Tablet PO SCH (09:22)
[2020-07-27] MEDS: THERAGRAN MULTIVITAMIN PO SCH (09:22)
[2020-07-27] MEDS: Lantus Insulin SQ SCH (09:23)
[2020-07-27] MEDS ORDERED: TROUGH DRUG LEVELS IJ ONE (09:30)
[2020-07-27] MEDS ORDERED: VANCOMYCIN 1.5 GRAM/300 ML BAG 1.5 GM/300 ML PIGGYBACK IV SCH (11:00)
[2020-07-27] MEDS ORDERED: HYDROCODONE-ACETAMIN 10-325 MG PO PRN (11:23)
--- NOTE | 2020-07-27 11:47 | PCM.DS ---
Discharge Summary Date of Admission: 07/23/20 15:26 Admitting Physician: JASE GARCIA Primary Care Provider: FLORIDALMA AVILES Allergies Allergies Iodinated Contrast Media [Iodinated Contrast Media - IV Dye] Allergy (Intermediate, Verified 03/15/20 08:08) unknown- hives morphine Allergy (Intermediate, Verified 03/15/20 08:08) confusion and combative hydromorphone HCl [From Dilaudid] Adverse Reaction (Intermediate, Verified 03/15/20 08:08) confusion and combative oxycodone HCl [From OxyContin] Adverse Reaction (Intermediate, Verified 03/15/20 08:08) confusion/ combative Hospital Summary - Hospital Course Hospital Course: Patient was admitted from ER with Dg sepsis felt to be from surgical skin lesions on left face-PCP states "sounded like removal of basal cell". Family gave a Hx of sudden onset of fever and chills and confusion that quickly responded to IV hydration and IV antibiotics (Zosyn and Vancomcin). Patient had neg blood cultures and normal urine and CXR neg for infiltrate . Procalcitonin levels were elevated (level =4)and coming down daily.He is IDDM2 and has had elevated sugars treated with sliding scale and home dose Lantus . VSS with mild elevation B/P the 1st day on Medsurg . Mentally at baseline since ER,very talkative and interested in his care. He has HTN, CAD,PVD,COPD but has not had chest pain or dyspnea or GI symtoms during this hospital stay.He lives at home with his and is anxious to get home. - Vitals & Intake/Output Vital Signs: Vital Signs Temperature 98.5 F 07/27/20 07:54 Pulse Rate 59 L 07/27/20 07:54 Respiratory Rate 18 07/27/20 07:54 Blood Pressure 192/77 07/27/20 07:54 O2 Sat by Pulse Oximetry 94 L 07/27/20 07:54 Intake & Output: Intake & Output 07/24/20 07/25/20 07/26/20 07/27/20 11:59 11:59 11:59 11:59 Intake Total 960 2037 2120 2741 Output Total 2350 1850 1400 Balance -1390 936 163 9355 Weight 82.6 kg 84 kg 84.1 kg - Lab Result Diagrams: 07/27/20 12:00 07/27/20 12:33 Lab Results-Last 24 Hrs: Lab Results-Last 24 Hours 07/26/20 07/26/20 07/27/20 Range/Units 15:51 20:05 07:24 POC Glucometer 282 H 335 H 163 H (74 to 106) mg/dL Vancomycin Trough (10-20) ug/mL 07/27/20 07/27/20 Range/Units 09:35 11:07 POC Glucometer 326 H (74 to 106) mg/dL Vancomycin Trough 7.99 L (10-20) ug/mL Micro Results-Entire Visit: Microbiology 07/23/20 10:35 Blood Culture - Preliminary Blood NO GROWTH TO DATE 07/23/20 10:35 Blood Culture - Preliminary Blood NO GROWTH TO DATE Accuchecks Date 07/27/20 Date 07/27/20 - Procedures and Test Procedures and Tests throughout Hospitalization: Therapy Orders & Screens 07/23/20 15:26 Oxygen Nasal Cannula 3 lpm Comment: 07/23/20 17:16 OT Screen per Nursing Assess ONCE Comment: Protocol Order Physician Instructions: Greater than 3 points order OT Admission Screening Reason For Exam: Triggered on Admission Diagnosis: Fever unknown origin Open Wound/Cellutlitis/Pressure Ulcers: Yes Acute Fx/ORIF/Change in wt bearing status: No Severe MUSCULOSKELETAL pain: Yes ADL Dysfunction: No Acute CVA w/Hemiparesis/Hemiplegia: No Decreased Functional Mobility/Strength: No Sprain/Strain: No Acute Post-op Mobility Dysfunction: No Total Points: 10 PT Screen per Nursing Assess ONCE Comment: Protocol Order Physician Instructions: Greater than 3 points order PT Admission Screenin Reason For Exam: Triggered on Admission Diagnosis: Fever unknown origin Open Wound/Cellutlitis/Pressure Ulcers: Yes Acute Fx/ORIF/Change in wt bearing status: No Severe MUSCULOSKELETAL pain: Yes ADL Dysfunction: No Acute CVA w/Hemiparesis/Hemiplegia: No Decreased Functional Mobility/Strength: No Sprain/Strain: No Acute Post-op Mobility Dysfunction: No Total Points: 10 RT Screen per Nursing Assess ONCE Comment: Protocol Order Physician Instructions: Greater than 3 points order RT Admission Screen Reason For Exam: Triggered on Admission Diagnosis: Fever unknown origin Diagnosis: Fever unknown origin Pneumonia: No Home O2: No Asthma: Yes CHF: No Home CPAP/BIPAP: Yes Home Nebs/MDI: Yes Total Points: 14 ST Screen per Nursing Assess ONCE Comment: Protocol Order Physician Instructions: Greater than [address] Admission Screening Reason For Exam: Triggered on Admission Diagnosis: Fever unknown origin CVA/Dyshpagia/Aphasia: No Cognitive Deficits: Yes Dehydration/Nutrition Deficit: No Reflux: Yes Oral-Motor Difficulties: No Pneumonia: No Alf Resident: No Total Points: 6 07/23/20 17:21 Respiratory Therapy Assessment DAILY Comment: Diagnosis: Fever unknown origin 07/24/20 13:04 PT Eval & Treat (MD Order) ONCE Reason for Eval:: LIVES AT HOME WITH , NORMALLY INDEPENDENT WITH ADLS Diagnosis: Fever unknown origin Discharge Exam General Appearance: no apparent distress Neurologic Exam: alert, oriented x 3, cooperative, normal mood/affect Eye Exam: eyes nml inspection Ears, Nose, Throat Exam: normal ENT inspection Neck Exam: normal inspection Respiratory Exam: normal breath sounds, lungs clear Cardiovascular Exam: regular rate/rhythm, normal heart sounds Gastrointestinal/Abdomen Exam: soft, normal bowel sounds (nontender) Back Exam: normal inspection Extremity Exam: other (no pitting edema) Skin Exam: normal color, warm, dry, other (left lateral forehead and and preauricular surgical lesions <1cm and without odor or purulent drainage or redness.) Final Diagnosis/Problem List - Final Discharge Diagnosis/Problem (1) Sepsis Current Visit: Yes Status: Acute (2) Confusion Current Visit: Yes Status: Resolved Code(s): R41.0 - DISORIENTATION, UNSPECIFIED (3) Type 2 diabetes mellitus Current Visit: No Status: Chronic (4) HTN (hypertension) Current Visit: No Status: Chronic Assessment & Plan: controlled,monitor Code(s): I10 - ESSENTIAL (PRIMARY) HYPERTENSION (5) S/P skin biopsy Current Visit: Yes Status: Acute Assessment & Plan: left face by outside provider Code(s): Z98.890 - OTHER SPECIFIED POSTPROCEDURAL STATES (6) COPD (chronic obstructive pulmonary disease) Current Visit: No Status: Chronic Assessment & Plan: Oxygen 2L was started ion ER and at discharge O2 sat 97% off O2, he does not wear O2 at home but has in the past. (7) Anemia Current Visit: Yes Status: Chronic Assessment & Plan: followed by specialist Code(s): D64.9 - ANEMIA, UNSPECIFIED - Discharge Disposition: Home, Self-Care Condition: Stable Prescriptions: New Mupirocin [Centany] 30 gm TP BID #1 oint...g. Saccharomyces Boulardii [Florastor] 250 mg PO BID #20 capsule Cephalexin Mh 500 mg [Keflex 500 mg] 500 mg PO TID #15 capsule Continue Multivitamin/Iron/Folic Acid [Centrum Complete Multivit Tab] 1 each PO DAILY Bimatoprost 0.01% [Lumigan 0.01% 2.5 ml] 1 drop OP HS Tamsulosin HCl 0.4 mg [Flomax 0.4 MG] 0.4 mg PO HS Isosorbide Mononitrate 30 mg [Imdur 30 MG] 30 mg PO DAILY Omeprazole 40 mg PO DAILY Atorvastatin Calcium 40 mg PO HS Gabapentin 800 mg PO BID Hydrocodone/APAP 10/325 mg [Mchenry 10/325 MG TableT] 1 tab PO Q6H PRN PRN PRN Reason: Pain Methylphenidate 5 mg [Ritalin 5 MG] 10 mg PO DAILY Insulin Glargine,Hum.rec.anlog [Basaglar Kwikpen U-100] 20 unit SQ DAILY Metformin HCl [Glucophage Xr] 1,000 mg PO BID Nitroglycerin 0.4 mg Tablet [Nitrostat 0.4 MG Tablet] 0.4 mg SL Q5MIN PRN MR X 3 PRN PRN Reason: Chest Pain Ferrous Sulfate [Iron] 65 mg PO DAILY Apixaban [Eliquis] 5 mg PO BID Instructions: Sepsis in Adults Follow up with: FLORIDALMA AVILES [Primary Care Provider] - 07/31/20 9:30 am Forms: Discharge Instructions
[2020-07-27 12:06] VITALS: BP 166/69; PULSE 60; O2SAT 96
[2020-07-27 12:16] LABS: Basophil (Absolute #) 0.05 (0-0.4); Eosinophil % 4.4 % (0.00-5.0); Eosinophil (Absolute #) 0.23 (0-0.5); Hematocrit 31.3 % (42-50); Hemoglobin 9.7 gm/dl (12.5-18.0); Lymphocyte (Absolute #) 1.29 (1.0-4.6); Lymphocytes % 24.9 % (24.0-44.0); Mean Cell Volume 92.6 fl (78-100); Mean Corpuscular Hemoglobin 28.7 pg (26-32); Mean Platelet Volume 11.4 fl (7.5-11.0); Monocyte (Absolute #) 0.31 (0.0-1.3); Neutrophil % 63.7 % (36.0-66.0); Platelet Count 152 K/mm3 (150-450); Red Blood Count 3.38 M/mm3 (4.1-5.6); Red Cell Distribution Width 14.4 % (11.5-14.0); White Blood Count 5.2 K/mm3 (4.0-10.5)
[2020-07-27 13:00] LABS: ANION GAP 10.5 MEQ/L (5-15); Calcium 9.7 mg/dL (8.4-10.2); Creatinine 1 1.61 mg/dL (0.66-1.25); EST GLOMERULAR FILTRATION RATE 44.2 ML/MIN; Potassium 4.5 mmol/L (3.5-5.1)
== END 2020-07-27 14:05 | disposition home or self-care (01) | DRG 872 ==
LOC: ED 09:54 → UNDOADMOB 15:25 → MED SURG 15:25 → OBSVTOIN 15:26 → MED SURG 15:26 → OBSVTOIN 07-24 08:00 → INTOOBSV 07-24 08:00
PROVIDERS: ADMIT Family Medicine; ATTEND Family Medicine
DX: A41.9 Sepsis, unspecified organism (principal); R41.0 Disorientation, unspecified; E11.649 Type 2 diabetes mellitus with hypoglycemia without coma; Z79.899 Other long term (current) drug therapy; Z98.890 Other specified postprocedural states; Z79.01 Long term (current) use of anticoagulants; I10 Essential (primary) hypertension; J44.9 Chronic obstructive pulmonary disease, unspecified; I25.10 Atherosclerotic heart disease of native coronary artery without angina pectoris; I73.9 Peripheral vascular disease, unspecified; D64.9 Anemia, unspecified; Z86.16 Personal history of COVID-19; E78.5 Hyperlipidemia, unspecified; R53.1 Weakness
CPT/HCPCS: 0241U; 36000; 36415; 51702; 71045; 80048; 80053; 80202; 81001; 82947; 83036; 83605; 83690; 84145; 84484; 85025; 86769; 87040; 87400; 87651; 93005; 93268; 94760; 96360; 96365; 96374; 97161; 97530; 99285; 99291; 96375; J1817; J2405; J2543; A9270-GY; G0378; J3370

== ENCOUNTER 2021-02-01 09:22 | Observation (INO) | payer MEDICARE ==
[2021-02-01] MEDS ORDERED: Zofran 4 MG/2 ML VIAL IV ONE (09:49)
[2021-02-01] MEDS ORDERED: Zofran 4 MG/2 ML VIAL ONE (09:55)
[2021-02-01] MEDS ORDERED: Sodium Chloride 0.9% 1000 ML 1,000 ML ONE (09:55)
[2021-02-01] MEDS ORDERED: Sodium Chloride 0.9% 1000 ML 1,000 ML IV SCH (10:00)
[2021-02-01 10:10] LABS: Absolute Neutrophil Ct (ANC) 16.25 (1.4-6.9); BASOPHIL % 0.1 % (0.0-0.4); Basophil (Absolute #) 0.02 (0-0.4); Eosinophil % 0.1 % (0.00-5.0); Eosinophil (Absolute #) 0.02 (0-0.5); Hematocrit 36.7 % (42-50); Hemoglobin 11.8 gm/dl (12.5-18.0); Lymphocyte (Absolute #) 0.51 (1.0-4.6); Lymphocytes % 2.9 % (24.0-44.0); Mean Cell Volume 95.3 fl (78-100); Mean Corpuscular Hemoglobin 30.6 pg (26-32); Mean Corpuscular Hgb Concent. 32.2 g/dl (32-36); Mean Platelet Volume 11.7 fl (7.5-11.0); Monocyte (Absolute #) 0.72 (0.0-1.3); Monocytes % 4.1 % (0.0-12.0); Neutrophil % 92.8 % (36.0-66.0); Platelet Count 160 K/mm3 (150-450); Red Blood Count 3.85 M/mm3 (4.1-5.6); Red Cell Distribution Width 14.1 % (11.5-14.0); White Blood Count 17.5 K/mm3 (4.0-10.5)
[2021-02-01 10:22] LABS: ALBUMIN 4.2 g/dL (3.5-5.0); ANION GAP 14.9 MEQ/L (5-15); BILIRUBIN,TOTAL 0.6 mg/dL (0.2-1.3); Calcium 9.6 mg/dL (8.4-10.2); Creatinine 1 1.82 mg/dL (0.66-1.25); EST GLOMERULAR FILTRATION RATE 38.4 ML/MIN; Potassium 4.8 mmol/L (3.5-5.1); Total Protein 7.8 g/dL (6.3-8.2)
--- NOTE | 2021-02-01 10:23 | ERPHSYRPT ---
- History of Present Illness Time Seen by Provider: 02/01/21 09:32 Source: patient, family Exam Limitations: no limitations Patient Subjective Stated Complaint: vomiting, chronic back pain, one episode diarrhea Triage Nursing Assessment: pt to ED c/o vomiting few episodes, diarrhea one episode, and chronic back pain 03/22. has not been around anyobyd COVID positive that he is aware of. no cough, SOB reported. denies abd pain. Physician History: 80 years old is brought in the ER by daughter with multiple complaints. Reports having sudden onset nausea almost 5 6 hours ago and 3 episodes of nonprojectile, nonbilious vomiting until prior to arrival and check his temperature which was 100.6. Also report one episode of loose stool with minimal abdominal discomfort especially in the upper abdomen. He is having some sinus/nasal congestion with minimal nonproductive cough with increasing shortness of breath but has baseline shortness of breath secondary to COPD. He denies any chest pain or palpitations. No sick contact. Did not receive Covid vaccine. Timing/Duration: hour(s) (6), intermittent, gradual onset, improved Severity: moderate Modifying Factors: Improves With: nothing Associated Symptoms: nausea, vomiting, cough, chills, fever, malaise, weakness, No shortness of breath Allergies/Adverse Reactions: Iodinated Contrast Media [Iodinated Contrast Media - IV Dye] Allergy (Intermediate, Verified 02/01/21 09:45) unknown- hives morphine Allergy (Intermediate, Verified 02/01/21 09:45) confusion and combative hydromorphone HCl [From Dilaudid] Adverse Reaction (Intermediate, Verified 02/01/21 09:45) confusion and combative oxycodone HCl [From OxyContin] Adverse Reaction (Intermediate, Verified 02/01/21 09:45) confusion/ combative Home Medications: Bimatoprost 0.01% [Lumigan 0.01% 2.5 ml] 1 drop OP HS 05/04/15 [History] Multivitamin/Iron/Folic Acid [Centrum Complete Multivit Tab] 1 each PO DAILY 05/04/15 [History] Tamsulosin HCl 0.4 mg [Flomax 0.4 MG] 0.4 mg PO HS 05/04/15 [History] Isosorbide Mononitrate 30 mg [Imdur 30 MG] 30 mg PO DAILY 08/09/16 [History] Atorvastatin Calcium 40 mg PO HS 08/26/18 [History] Gabapentin 800 mg PO BID 08/26/18 [History] Omeprazole 40 mg PO DAILY 08/26/18 [History] Methylphenidate 5 mg [Ritalin 5 MG] 15 mg PO DAILY 12/05/19 [History] Ferrous Sulfate [Iron] 65 mg PO DAILY 12/06/19 [History] Insulin Glargine,Hum.rec.anlog [Basaglar Kwikpen U-100] 20 unit SQ DAILY 12/06/19 [History] Metformin HCl [Glucophage Xr] 1,000 mg PO BID 12/06/19 [History] Nitroglycerin 0.4 mg Tablet [Nitrostat 0.4 MG Tablet] 0.4 mg SL Q5MIN PRN MR X 3 PRN 12/06/19 [History] Apixaban [Eliquis] 5 mg PO BID 03/15/20 [History] Hx Tetanus, Diphtheria Vaccination/Date Given: No (unknwon) Hx Influenza Vaccination/Date Given: Yes Hx Pneumococcal Vaccination/Date Given: Yes Immunizations Up to Date: Yes Travel Risk - International Travel Have you traveled outside of the country in past 3 weeks: No - Coronavirus Screening Symptoms: Fever, Vomiting/Diarrhea Close contact with a COVID-19 positive Pt in past 14-21 Days: No - Vaccine Status Have you recieved a Covid-19 vaccination: No - Review of Systems Constitutional: Fever, Chills, Fatigue, Weakness Eyes: No Symptoms Ears, Nose, & Throat: Nose Congestion, Sinus Drainage Respiratory: Cough, No Cyanosis, No Wheezing Cardiac: No Symptoms Abdominal/Gastrointestinal: Abdominal Pain, Nausea, Vomiting, Diarrhea Genitourinary Symptoms: No Symptoms Musculoskeletal: Back Pain (Chronic) Skin: No Symptoms Neurological: No Symptoms Endocrine: No Symptoms Hematologic/Lymphatic: No Symptoms Immunological/Allergic: No Symptoms - Past Medical History Pertinent Past Medical History: Yes Neurological History: No Pertinent History ENT History: Cataracts, Glaucoma Cardiac History: Hypertension, Other Respiratory History: Asthma Endocrine Medical History: Diabetes Type II Musculoskeletal History: Degenerative Disk Disease, Osteoarthritis, Other GI Medical History: GERD, Gallbladder Disease History: Other Psycho-Social History: Depression Male Reproductive Disorders: Prostate Problems Other Medical History: heart surgery, 4 stents. - Past Surgical History Past Surgical History: Yes Neuro Surgical History: No Pertinent History Cardiac: CABG, Cardiac Catheterization, Cardiac Stent Respiratory: No Pertinent History Gastrointestinal: Appendectomy, Cholecystectomy Genitourinary: No Pertinent History Musculoskeletal: Orthopedic Surgery Male Surgical History: No Pertinent History Other Surgical History: back surgery. fem pop. steriod injection in various joints. carpal tunnel surgery - Social History Smoking Status: Former smoker How long have you smoked: 1975 Exposure to second hand smoke: No Drug Use: none Patient Lives Alone: No - Nursing Vital Signs Nursing Vital Signs: Initial Vital Signs Temperature 98.8 F 02/01/21 09:30 Pulse Rate 112 H 02/01/21 09:30 Respiratory Rate 17 02/01/21 09:30 Blood Pressure 150/80 02/01/21 09:30 O2 Sat by Pulse Oximetry 95 02/01/21 09:30 Pain Scale Pain Intensity 7 - Physical Exam General Appearance: no apparent distress, alert Eye Exam: PERRL/EOMI, eyes nml inspection Ears, Nose, Throat Exam: normal ENT inspection, moist mucous membranes, pharyngeal erythema Neck Exam: normal inspection, supple, full range of motion Respiratory Exam: normal breath sounds, lungs clear Cardiovascular Exam: normal heart sounds, tachycardia Gastrointestinal/Abdomen Exam: soft, normal bowel sounds, tenderness (Minimal tenderness upper abdomen especially in the periumbilical area) Back Exam: normal inspection, normal range of motion Extremity Exam: normal inspection, normal range of motion Neurologic Exam: alert, oriented x 3, 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, 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 Skin Exam: normal color SpO2 Interpretation: normal SpO2: 95 O2 Delivery: Room Air Ordered Tests: Active Orders 24 hr Category Date Time Status IV Insertion STAT Care 02/01/21 09:49 Active NPO (ED) STAT Care 02/01/21 09:49 Active ABDOMEN AND PELVIS W/0 CONTRAS [CT] Stat Exams 02/01/21 10:10 Taken CHEST 1 VIEW (PORTABLE) Stat Exams 02/01/21 12:20 Taken CBC W DIFF Stat Lab 02/01/21 09:49 Completed CMP Stat Lab 02/01/21 09:49 Completed LIPASE Stat Lab 02/01/21 09:49 Completed Lactic Acid Stat Lab 02/01/21 09:49 Completed TROPONIN Q3H Lab 02/01/21 10:00 Completed TROPONIN Q3H Lab 02/01/21 13:00 Completed UA W/RFX UR CULTURE Stat Lab 02/01/21 13:59 Completed Medication Summary Generic Name Dose Route Start Last Admin Trade Name Maribeth PRN Reason Stop Dose Admin Sodium Chloride 1,000 mls @ 125 mls/hr 02/01/21 10:00 02/01/21 09:58 Sodium Chloride 0.9% 1000 Ml IV 03/03/21 09:59 125 mls/hr .Q8H RUTH Administration Discontinued Medications Generic Name Dose Route Start Last Admin Trade Name Maribeth PRN Reason Stop Dose Admin Ceftriaxone Sodium/Dextrose 2 g in 50 mls @ 100 mls/hr 02/01/21 13:18 02/01/21 15:32 Rocephin 2 Gm-D5w 50ml Bag IV 02/01/21 13:47 Infused STAT STA Infusion Azithromycin 500 mg in 250 mls @ 250 mls/hr 02/01/21 13:18 02/01/21 15:05 Zithromax 500 Mg/ 250 Ml Nacl Premix IV 02/01/21 14:17 250 ml/hr STAT STA 250 mls/hr Administration Ceftriaxone Sodium/Dextrose Confirm 02/01/21 14:00 Rocephin 2 Gm-D5w 50ml Bag Administered 02/01/21 14:01 Dose 2 g in 50 mls @ ud IV .STK-MED ONE Azithromycin Confirm 02/01/21 15:03 Zithromax 500 Mg/ 250 Ml Nacl Premix Administered 02/01/21 15:04 Dose 500 mg in 250 mls @ ud IV .STK-MED ONE Ondansetron HCl 4 mg 02/01/21 09:49 02/01/21 09:58 Zofran 4 Mg/2 Ml Vial IV 02/01/21 09:50 4 mg STAT ONE Administration Ondansetron HCl Confirm 02/01/21 09:55 Zofran 4 Mg/2 Ml Vial Administered 02/01/21 09:56 Dose 4 mg .ROUTE .STK-MED ONE Lab/Rad Data: Laboratory Result Diagrams 02/01/21 09:49 02/01/21 09:49 Laboratory Results 02/01/21 02/01/21 02/01/21 Range/Units 15:03 13:59 13:00 WBC (4.0-10.5) K/mm3 RBC (4.1-5.6) M/mm3 Hgb (12.5-18.0) gm/dl Hct (42-50) % MCV (78-100) fl MCH (26-32) pg MCHC (32-36) g/dl RDW (11.5-14.0) % Plt Count (150-450) K/mm3 MPV (7.5-11.0) fl Gran % (36.0-66.0) % Eos # (Auto) (0-0.5) Absolute Lymphs (auto) (1.0-4.6) Absolute Monos (auto) (0.0-1.3) Lymphocytes % (24.0-44.0) % Monocytes % (0.0-12.0) % Eosinophils % (0.00-5.0) % Basophils % (0.0-0.4) % Absolute Granulocytes (1.4-6.9) Basophils # (0-0.4) Sodium (137-145) mmol/L Potassium (3.5-5.1) mmol/L Chloride (98-107) mmol/L Carbon Dioxide (22-30) mmol/L Anion Gap (5-15) MEQ/L BUN (9-20) mg/dL Creatinine (0.66-1.25) mg/dL Estimated GFR ML/MIN Glucose (74-106) mg/dL Lactic Acid (0.4-2.0) Calcium (8.4-10.2) mg/dL Total Bilirubin (0.2-1.3) mg/dL AST (17-59) U/L ALT (0-50) U/L Alkaline Phosphatase (38-126) U/L Troponin I < 0.012 (0.000-0.034) ng/mL Serum Total Protein (6.3-8.2) g/dL Albumin (3.5-5.0) g/dL Lipase (23-300) U/L Urine Color YELLOW (YELLOW) Urine Appearance CLEAR (CLEAR) Urine pH 7.0 (5-6) Ur Specific [place] 1.013 (1.005-1.025) Urine Protein 100 (Negative) Urine Ketones NEGATIVE (NEGATIVE) Urine Blood NEGATIVE (0-5) Saw/ul Urine Nitrite NEGATIVE (NEGATIVE) Urine Bilirubin NEGATIVE (NEGATIVE) Urine Urobilinogen NEGATIVE (0-1) mg/dL Ur Leukocyte Esterase NEGATIVE (NEGATIVE) Urine WBC (Auto) NONE (0-5) /HPF Urine RBC (Auto) NONE (0-2) /HPF U Epithel Cells (Auto) NONE (FEW) /HPF Urine Bacteria (Auto) NONE (NEGATIVE) /HPF Urine Culture Reflexed NO (NO) Urine Glucose NEGATIVE (NEGATIVE) mg/dL SARS-CoV-2 (PCR) NEGATIVE (NEGATIVE) Slides for Path Review 02/01/21 02/01/21 02/01/21 Range/Units 10:00 09:49 09:49 WBC (4.0-10.5) K/mm3 RBC (4.1-5.6) M/mm3 Hgb (12.5-18.0) gm/dl Hct (42-50) % MCV (78-100) fl MCH (26-32) pg MCHC (32-36) g/dl RDW (11.5-14.0) % Plt Count (150-450) K/mm3 MPV (7.5-11.0) fl Gran % (36.0-66.0) % Eos # (Auto) (0-0.5) Absolute Lymphs (auto) (1.0-4.6) Absolute Monos (auto) (0.0-1.3) Lymphocytes % (24.0-44.0) % Monocytes % (0.0-12.0) % Eosinophils % (0.00-5.0) % Basophils % (0.0-0.4) % Absolute Granulocytes (1.4-6.9) Basophils # (0-0.4) Sodium 140 (137-145) mmol/L Potassium 4.8 (3.5-5.1) mmol/L Chloride 105 (98-107) mmol/L Carbon Dioxide 25 (22-30) mmol/L Anion Gap 14.9 (5-15) MEQ/L BUN 33 H (9-20) mg/dL Creatinine 1.82 H (0.66-1.25) mg/dL Estimated GFR 38.4 ML/MIN Glucose 186 H (74-106) mg/dL Lactic Acid 1.1 (0.4-2.0) Calcium 9.6 (8.4-10.2) mg/dL Total Bilirubin 0.60 (0.2-1.3) mg/dL AST 29 (17-59) U/L ALT 15 (0-50) U/L Alkaline Phosphatase 58 (38-126) U/L Troponin I < 0.012 (0.000-0.034) ng/mL Serum Total Protein 7.8 (6.3-8.2) g/dL Albumin 4.2 (3.5-5.0) g/dL Lipase 83 (23-300) U/L Urine Color (YELLOW) Urine Appearance (CLEAR) Urine pH (5-6) Ur Specific [place] (1.005-1.025) Urine Protein (Negative) Urine Ketones (NEGATIVE) Urine Blood (0-5) Saw/ul Urine Nitrite (NEGATIVE) Urine Bilirubin (NEGATIVE) Urine Urobilinogen (0-1) mg/dL Ur Leukocyte Esterase (NEGATIVE) Urine WBC (Auto) (0-5) /HPF Urine RBC (Auto) (0-2) /HPF U Epithel Cells (Auto) (FEW) /HPF Urine Bacteria (Auto) (NEGATIVE) /HPF Urine Culture Reflexed (NO) Urine Glucose (NEGATIVE) mg/dL SARS-CoV-2 (PCR) (NEGATIVE) Slides for Path Review 02/01/21 Range/Units 09:49 WBC 17.5 H (4.0-10.5) K/mm3 RBC 3.85 L (4.1-5.6) M/mm3 Hgb 11.8 L (12.5-18.0) gm/dl Hct 36.7 L (42-50) % MCV 95.3 (78-100) fl MCH 30.6 (26-32) pg MCHC 32.2 (32-36) g/dl RDW 14.1 H (11.5-14.0) % Plt Count 160 (150-450) K/mm3 MPV 11.7 H (7.5-11.0) fl Gran % 92.8 H (36.0-66.0) % Eos # (Auto) 0.02 (0-0.5) Absolute Lymphs (auto) 0.51 L (1.0-4.6) Absolute Monos (auto) 0.72 (0.0-1.3) Lymphocytes % 2.9 L (24.0-44.0) % Monocytes % 4.1 (0.0-12.0) % Eosinophils % 0.1 (0.00-5.0) % Basophils % 0.1 (0.0-0.4) % Absolute Granulocytes 16.25 H (1.4-6.9) Basophils # 0.02 (0-0.4) Sodium (137-145) mmol/L Potassium (3.5-5.1) mmol/L Chloride (98-107) mmol/L Carbon Dioxide (22-30) mmol/L Anion Gap (5-15) MEQ/L BUN (9-20) mg/dL Creatinine (0.66-1.25) mg/dL Estimated GFR ML/MIN Glucose (74-106) mg/dL Lactic Acid (0.4-2.0) Calcium (8.4-10.2) mg/dL Total Bilirubin (0.2-1.3) mg/dL AST (17-59) U/L ALT (0-50) U/L Alkaline Phosphatase (38-126) U/L Troponin I (0.000-0.034) ng/mL Serum Total Protein (6.3-8.2) g/dL Albumin (3.5-5.0) g/dL Lipase (23-300) U/L Urine Color (YELLOW) Urine Appearance (CLEAR) Urine pH (5-6) Ur Specific [place] (1.005-1.025) Urine Protein (Negative) Urine Ketones (NEGATIVE) Urine Blood (0-5) Saw/ul Urine Nitrite (NEGATIVE) Urine Bilirubin (NEGATIVE) Urine Urobilinogen (0-1) mg/dL Ur Leukocyte Esterase (NEGATIVE) Urine WBC (Auto) (0-5) /HPF Urine RBC (Auto) (0-2) /HPF U Epithel Cells (Auto) (FEW) /HPF Urine Bacteria (Auto) (NEGATIVE) /HPF Urine Culture Reflexed (NO) Urine Glucose (NEGATIVE) mg/dL SARS-CoV-2 (PCR) (NEGATIVE) Slides for Path Review YES - Progress Progress: improved, re-examined Progress Note: 02/01/21 15:16 80 years old is evaluated for multiple complaints of URI, cough, diarrhea. Started on gentle hydration with. Work-up showed white count of 17, CKD and chest x-ray bilateral pneumonic infiltrate. CT abdomen pelvis grossly negative for any acute findings. Started on Rocephin and Zithromax. Discussed with Dr. Heard and patient is admitted. Discussed with .: Marisel Will see patient in: hospital (observation) Counseled pt/family regarding: lab results, diagnosis, rad results - Departure Departure Disposition: Observation Clinical Impression: General weakness Pneumonia Qualifiers: Pneumonia type: due to unspecified organism Laterality: bilateral Lung location: unspecified part of lung Qualified Code(s): J18.9 - Pneumonia, unspecified organism Condition: Stable Critical Care Time: No Referrals: FLORIDALMA AVILES [Primary Care Provider] -
[2021-02-01 10:31] LABS: Slide Review 1 YES
[2021-02-01] MEDS ORDERED: ROCEPHIN 2 Gm-D5w 50ML BAG** 2 G/50 ML IVPB IV STA (13:18)
[2021-02-01] MEDS ORDERED: Zithromax 500 MG/ 250 ML NaCl Premix 500 MG/250 ML IVPB IV STA (13:18)
[2021-02-01] MEDS ORDERED: ROCEPHIN 2 Gm-D5w 50ML BAG** 2 G/50 ML IVPB IV ONE (14:00)
[2021-02-01] MEDS ORDERED: Zithromax 500 MG/ 250 ML NaCl Premix 500 MG/250 ML IVPB IV ONE (15:03)
[2021-02-01 15:32] LABS: Appearance CLEAR (CLEAR); Bilirubin NEGATIVE (NEGATIVE); Blood NEGATIVE Ery/ul (0-5); Glucose NEGATIVE (NEGATIVE); Ketones NEGATIVE (NEGATIVE); Leukocyte Esterase NEGATIVE (NEGATIVE); Nitrite NEGATIVE (NEGATIVE); Protein,Urine Dip 100 (Negative); Specific Gravity 1.013 (1.005-1.025); Urobilinogen NEGATIVE mg/dL (0-1)
[2021-02-01] MEDS ORDERED: Zofran 4 MG/2 ML VIAL IV PRN (17:08)
[2021-02-01] MEDS ORDERED: TYLENOL 325 MG PO PRN (17:08)
[2021-02-01] MEDS ORDERED: DUONEB 0.5-3 MG/3 ml Neb IH PRN (17:08)
--- NOTE | 2021-02-01 18:19 | XRAY ---
Indication: Nausea, vomiting, fever, diarrhea. Suspect COVID 19. Multiple contiguous axial images obtained through the abdomen and pelvis without contrast. Comparison: August 09, 2016. Mild respiration artifact throughout exam. Lung bases demonstrates new bilateral lower lobe patchy airspace disease left greater than right without effusion. Heart not enlarged. Noncontrasted stomach and bowel loops are nonobstructed. Appendectomy and cholecystectomy reported. No free fluid/air. Stable calcified splenic granulomas and tiny bilateral renal cysts. Remaining liver, pancreas, spleen, adrenal glands, kidneys, ureters, and bladder are unremarkable for noncontrast exam. Again moderate aortoiliac calcifications without AAA. Osseous structures intact again with L5-S1 fusion surgery and grade 2 spondylolisthesis. Impression: 1. Respiration artifact. 2. Again incidental bilateral renal cysts, chronic bony findings, and old granulomatous disease. 3. New bibasilar pneumonias. 4. Remaining CT abdomen/pelvis without contrast exam is negative. Comment: Preliminary interpretation made by [facility]. No critical discrepancy
--- NOTE | 2021-02-01 18:21 | XRAY ---
Indication: Fever, nausea, and vomiting. Suspect COVID 19. Comparison: December 09, 2020. Portable chest demonstrates new bibasilar infiltrates/atelectasis left greater than right. No consolidation/large effusion. Heart not enlarged again with CABG. Bony thorax intact again with osteopenia and degenerative changes.
[2021-02-01] MEDS ORDERED: Pepcid 20 MG VIAL IV ONE (20:55)
[2021-02-01] MEDS: Flomax 0.4 MG PO SCH (21:07)
[2021-02-01] MEDS: Pepcid 20 MG VIAL IV SCH (21:07)
[2021-02-01] MEDS: HUMALOG SQ PRN (21:07)
[2021-02-01] MEDS ORDERED: ELIQUIS 2.5 MG TABLET PO ONE (22:00)
[2021-02-01] MEDS ORDERED: Neurontin 400 MG PO ONE (22:00)
[2021-02-01] MEDS ORDERED: LUMIGAN 0.01% 2.5 ML OP SCH (22:00)
[2021-02-02 05:21] LABS: BASOPHIL % 0.2 % (0.0-0.4); Basophil (Absolute #) 0.02 (0-0.4); Eosinophil % 1.2 % (0.00-5.0); Eosinophil (Absolute #) 0.14 (0-0.5); Hematocrit 30.8 % (42-50); Lymphocyte (Absolute #) 1.23 (1.0-4.6); Lymphocytes % 10.7 % (24.0-44.0); Mean Cell Volume 96.6 fl (78-100); Mean Corpuscular Hemoglobin 30.4 pg (26-32); Mean Corpuscular Hgb Concent. 31.5 g/dl (32-36); Mean Platelet Volume 10.8 fl (7.5-11.0); Monocyte (Absolute #) 0.47 (0.0-1.3); Monocytes % 4.1 % (0.0-12.0); Neutrophil % 83.8 % (36.0-66.0); Platelet Count 133 K/mm3 (150-450); Red Blood Count 3.19 M/mm3 (4.1-5.6); Red Cell Distribution Width 14.1 % (11.5-14.0); White Blood Count 11.5 K/mm3 (4.0-10.5)
[2021-02-02 05:24] LABS: Hemoglobin 9.7 gm/dl (12.5-18.0)
[2021-02-02 05:45] LABS: ALBUMIN 3.4 g/dL (3.5-5.0); ANION GAP 9.1 MEQ/L (5-15); BILIRUBIN,TOTAL 0.4 mg/dL (0.2-1.3); Calcium 9.2 mg/dL (8.4-10.2); Creatinine 1 1.66 mg/dL (0.66-1.25); EST GLOMERULAR FILTRATION RATE 42.7 ML/MIN; Potassium 4.9 mmol/L (3.5-5.1); Total Protein 6.3 g/dL (6.3-8.2)
[2021-02-02] MEDS ORDERED: Nitrostat 0.4 MG Tablet SL PRN (09:33)
[2021-02-02] MEDS ORDERED: NON-FORMULARY ITEM (Amlodipine Besylate [Amlodipine Besylate] 10 MG) PO SCH (10:00)
[2021-02-02] MEDS ORDERED: MULTIVITAMIN PO SCH (10:00)
[2021-02-02] MEDS ORDERED: [UNRECOGNIZED DRUG - OTHER] PO SCH (10:00)
[2021-02-02] MEDS ORDERED: NON-FORMULARY ITEM (Omeprazole [Omeprazole] 40 MG) PO SCH (10:00)
[2021-02-02] MEDS ORDERED: IRON PO SCH (10:00)
[2021-02-02] MEDS ORDERED: NON-FORMULARY ITEM (Apixaban [Eliquis] 5 MG) PO SCH (10:00)
[2021-02-02] MEDS ORDERED: NON-FORMULARY ITEM (Gabapentin [Gabapentin] 800 MG) PO SCH (10:00)
[2021-02-02] MEDS ORDERED: FOLIC ACID PO SCH (10:00)
[2021-02-02] MEDS ORDERED: INSULIN GLARGINE HUM REC ANLOG 20 UNIT SQ SCH (10:00)
[2021-02-02] MEDS ORDERED: NON-FORMULARY ITEM (Cyanocobalamin (Vitamin B-12) [Vitamin B12] 2,500 MCG) PO SCH (10:00)
[2021-02-02] MEDS: FEOSOL 325 MG PO SCH (10:16)
[2021-02-02] MEDS: THERAGRAN MULTIVITAMIN PO SCH (10:16)
[2021-02-02] MEDS: Vitamin B-12 500 MCG PO SCH (10:16)
[2021-02-02] MEDS: Protonix 40MG Tablet PO SCH (10:16)
[2021-02-02] MEDS: Ritalin 5 MG PO SCH (10:16)
[2021-02-02] MEDS: ELIQUIS 2.5 MG TABLET PO SCH ×2 (10:17→22:15)
[2021-02-02] MEDS: Imdur 30 MG PO SCH (10:17)
[2021-02-02] MEDS: Glucophage XR 500 MG PO SCH ×2 (10:17→16:15)
[2021-02-02] MEDS: Neurontin 400 MG PO SCH ×2 (10:17→22:15)
[2021-02-02] MEDS: NORVASC 5 MG PO SCH (10:17)
[2021-02-02] MEDS: Lantus Insulin SQ SCH (10:18)
[2021-02-02] MEDS: Pepcid 20 MG VIAL IV SCH ×2 (10:19→22:16)
[2021-02-02] MEDS: SODIUM CHLORIDE 0.45% W/ 20 mEq KCL 1,000 ML IV SCH ×2 (10:28→22:23)
[2021-02-02] MEDS: Zithromax 500 MG/ 250 ML NaCl Premix 500 MG/250 ML IVPB IV SCH (10:32)
[2021-02-02] MEDS: HYDROCODONE-ACETAMIN 10-325 MG PO PRN ×2 (10:34→16:15)
[2021-02-02] MEDS: ROCEPHIN 1 Gm-D5w 50 ml Bag** 1 G/50 ML IVPB IV SCH (11:43)
[2021-02-02] MEDS: HUMALOG SQ PRN ×2 (11:43→18:06)
[2021-02-02] MEDS ORDERED: LUMIGAN 0.01% 2.5 ML OP SCH (22:00)
[2021-02-02] MEDS: Flomax 0.4 MG PO SCH (22:16)
[2021-02-03] MEDS: HYDROCODONE-ACETAMIN 10-325 MG PO PRN (05:05)
[2021-02-03 05:22] LABS: Absolute Neutrophil Ct (ANC) 5.98 (1.4-6.9); BASOPHIL % 0.3 % (0.0-0.4); Basophil (Absolute #) 0.02 (0-0.4); Eosinophil (Absolute #) 0.24 (0-0.5); Hematocrit 29.7 % (42-50); Hemoglobin 9.6 gm/dl (12.5-18.0); Lymphocytes % 16.3 % (24.0-44.0); Mean Corpuscular Hemoglobin 30.4 pg (26-32); Mean Corpuscular Hgb Concent. 32.3 g/dl (32-36); Mean Platelet Volume 11.9 fl (7.5-11.0); Monocyte (Absolute #) 0.44 (0.0-1.3); Monocytes % 5.5 % (0.0-12.0); Neutrophil % 74.9 % (36.0-66.0); Platelet Count 132 K/mm3 (150-450); Red Blood Count 3.16 M/mm3 (4.1-5.6); Red Cell Distribution Width 13.6 % (11.5-14.0)
[2021-02-03 06:17] LABS: ALBUMIN 3.2 g/dL (3.5-5.0); ANION GAP 10.5 MEQ/L (5-15); BILIRUBIN,TOTAL 0.2 mg/dL (0.2-1.3); Calcium 9.1 mg/dL (8.4-10.2); Creatinine 1 1.52 mg/dL (0.66-1.25); EST GLOMERULAR FILTRATION RATE 47.3 ML/MIN; Potassium 4.2 mmol/L (3.5-5.1); Total Protein 6.3 g/dL (6.3-8.2)
--- NOTE | 2021-02-03 08:22 | HP ---
CHIEF COMPLAINT: Vomiting, abdominal pain, fatigue. HISTORY OF PRESENT ILLNESS: The patient is a 80 year-old white male patient who reports that he had been feeling quite lethargic recently, sleeping a lot. He has had a dry cough. The patient reports no COVID contacts that he was aware of. The patient noted that he had begun having problems when he fell asleep on the stool where he was having some loose stools and a couple episodes of emesis. He was brought to the emergency room for evaluation and management and was found to have pneumonia. He was admitted to the hospital for IV fluid hydration and antibiotics. PAST MEDICAL/SURGICAL HISTORY: Significant for diabetes mellitus type II, hypertension, asthma, degenerative disc disease to his back, gastroesophageal reflux disease, gallbladder disease, prostate problems and depression. He has previously had cardiac catheterization with stents. He had an appendectomy and cholecystectomy. He has had back surgery and several joint injections for his rheumatoid arthritis. HOME MEDICATIONS: His current medical list includes amlodipine 10 mg a day for blood pressure, Eliquis 5 mg b.i.d., Lumigan eye drops, B12 injection 2,500 mcg daily p.o., iron 65 mg daily, gabapentin 800 mg twice a day for his back pain and neuropathy, hydrocodone 10/325 every six hours PRN for pain. He is on Lantus 20 units daily, isosorbide 30 mg a day, metformin 1,000 mg twice daily, methylphenidate 5 mg tablets 15 mg in the morning, multivitamin, nitroglycerin PRN, omeprazole 40 mg, tamsulosin 0.4 mg daily as well. ALLERGIES: MORPHINE. DILAUDID. OXYCODONE. IV CONTRAST DYE. PHYSICAL EXAMINATION: The patient's vital signs in the emergency room showed his temperature 98.8F, pulse 112, respiratory rate 17 and blood pressure 150/80. O2 saturation 95%. HEENT: Normocephalic, atraumatic. Pupils equal round reactive to light. Extraocular movements intact. Oropharynx is pink and moist. NECK: Supple without lymphadenopathy, thyromegaly or JVD. CHEST: Essentially clear. No wheezes were heard. HEART: Regular rate without significant murmurs, rubs or gallops noted. ABDOMEN: Soft, nontender, nondistended without masses felt. EXTREMITIES: Without cyanosis, clubbing or edema. NEUROLOGIC: The patient is alert and oriented x3. No focal deficits were noted although the patient does report that he is having more mental problems as he ages. LAB DATA AND TESTS: He had a CT scan of abdomen and pelvis which was without any acute abnormality. He had infiltrate noted in the lung bases left greater than right. His labs showed his troponin to be less than 0.012. His UA was normal, specific gravity 1.013. COVID test was negative. Lactic acid was 1.1. His white count was 17,500, hemoglobin 11.8, PLT 160,000. There did appear to be a left shift with 92.8% granulocytes. His metabolic panel showed a sugar nonfasting at 186, BUN 32, creatinine 1.82. Electrolytes were normal. Liver enzymes were normal. Lipase is normal. ASSESSMENT: A patient with pneumonia. He has received Rocephin and Zithromax in the emergency room. He will get gentle hydration to see if he improves his renal functions with a creatinine of 1.82. The patient will be continued on his usual home medications otherwise. We will keep a close eye on his saturations. He has been lethargic and he is receiving gabapentin and narcotics.
[2021-02-03] MEDS: Glucophage XR 500 MG PO SCH (08:27)
[2021-02-03 09:25] VITALS: BP 129/77; PULSE 53; O2SAT 97
[2021-02-03] MEDS: ROCEPHIN 1 Gm-D5w 50 ml Bag** 1 G/50 ML IVPB IV SCH (09:27)
[2021-02-03] MEDS: Lantus Insulin SQ SCH (09:28)
[2021-02-03] MEDS: Ritalin 5 MG PO SCH (09:29)
[2021-02-03] MEDS: Imdur 30 MG PO SCH (09:30)
[2021-02-03] MEDS: ELIQUIS 2.5 MG TABLET PO SCH (09:30)
[2021-02-03] MEDS: Vitamin B-12 500 MCG PO SCH (09:30)
[2021-02-03] MEDS: FEOSOL 325 MG PO SCH (09:31)
[2021-02-03] MEDS: THERAGRAN MULTIVITAMIN PO SCH (09:31)
[2021-02-03] MEDS: Protonix 40MG Tablet PO SCH (09:31)
[2021-02-03] MEDS: NORVASC 5 MG PO SCH (09:32)
[2021-02-03] MEDS: Neurontin 400 MG PO SCH (09:32)
[2021-02-03] MEDS: Pepcid 20 MG VIAL IV SCH (09:33)
[2021-02-03] MEDS: Zithromax 500 MG/ 250 ML NaCl Premix 500 MG/250 ML IVPB IV SCH (10:22)
--- NOTE | 2021-02-03 13:54 | DS ---
DISCHARGE DIAGNOSIS: PNEUMONIA. HOSPITAL COURSE: The patient is a 80-year-old white male patient presenting to the emergency room with complaints of vomiting, diarrhea and back pain. He was found to have temperature of 100.6F on arrival to the emergency room. Evaluation showed that he had pneumonia. He was admitted to the hospital on Rocephin and Zithromax. His initial white count was 17,000 and it came back down the next day to approximately 12,000 and by the time of discharge was down to 8,000. The patient was feeling good and requested to home. He was also found to be somewhat anemic with a hemoglobin of 9.7. He also has chronic kidney disease with BUN 21, creatinine 1.52 which is not improved from his admission. On his arrival the COVID test was negative. His creatinine was 1.82 initially and dropped to 1.52 after fluid hydration. The patient is felt now to be ready to go home. He has been afebrile with stable vital signs and O2 saturations in the high 90's. The patient will be sent home with Augmentin 875 twice a day for seven days and to follow up with his primary provider which is Taylor Chapman in approximately one week.
== END 2021-02-03 12:03 | disposition home or self-care (01) ==
LOC: ED 09:22 → MED SURG 17:00
PROVIDERS: ADMIT Family Medicine; ATTEND Family Medicine
DX: J18.9 Pneumonia, unspecified organism (principal); R11.2 Nausea with vomiting, unspecified; E11.22 Type 2 diabetes mellitus with diabetic chronic kidney disease; I12.9 Hypertensive chronic kidney disease with stage 1 through stage 4 chronic kidney disease, or unspecified chronic kidney disease; N18.9 Chronic kidney disease, unspecified; J44.9 Chronic obstructive pulmonary disease, unspecified; R53.1 Weakness; Z79.899 Other long term (current) drug therapy; R19.7 Diarrhea, unspecified; M54.9 Dorsalgia, unspecified; D64.9 Anemia, unspecified; R10.9 Unspecified abdominal pain; R53.83 Other fatigue; Z20.822 Contact with and (suspected) exposure to COVID-19
CPT/HCPCS: 36000; 36415; 71045; 74176; 80053; 81001; 82947; 83605; 83690; 84484; 85025; 93268; 94760; 96360; 96361; 96365; 96374; 99285; G0378; U0003; J0456; J0696; J1817; J2405; A9270-GY

== ENCOUNTER 2021-05-23 15:01 | Emergency (ER) | payer MEDICARE ==
[2021-05-23] MEDS ORDERED: XYLOCAINE 1% HCL 20 ML MDV ONE (15:50)
[2021-05-23 16:26] VITALS: O2SAT 95
--- NOTE | 2021-05-23 16:26 | ERPHSYRPT ---
- History of Present Illness Time Seen by Provider: 05/23/21 16:15 Source: patient Exam Limitations: no limitations Patient Subjective Stated Complaint: cut left hand middle finger with a log splitter Triage Nursing Assessment: Pt was brought to the ER by his daughter, manjit mishra, denies pain, left hand middle finger distal curve 3 cm laceration, no other injuries Physician History: 81 years old left-handed dominant male presented in the ER with chief complaint of laceration left middle finger pulp by accidentally getting crushed between wood log and splitter. There was bleeding initially was stopped with applying pressure. Complaining of moderate intensity sharp shooting pain in the pulp, more with movements at DIP and better with being still. Unsure about tetanus status. Timing/Duration: hour(s) (.5), constant, sudden, improved Quality: painful Severity: moderate Location: extremities Possible Causes: other Associated Symptoms: denies symptoms Allergies/Adverse Reactions: Iodinated Contrast Media [Iodinated Contrast Media - IV Dye] Allergy (Intermediate, Verified 05/23/21 16:05) unknown- hives morphine Allergy (Intermediate, Verified 05/23/21 16:05) confusion and combative hydromorphone HCl [From Dilaudid] Adverse Reaction (Intermediate, Verified 05/23/21 16:05) confusion and combative oxycodone HCl [From OxyContin] Adverse Reaction (Intermediate, Verified 05/23/21 16:05) confusion/ combative Home Medications: Bimatoprost 0.01% [Lumigan 0.01% 2.5 ml] 1 drop OP HS 05/04/15 [History] Multivitamin/Iron/Folic Acid [Centrum Complete Multivit Tab] 1 each PO DAILY 05/04/15 [History] Tamsulosin HCl 0.4 mg [Flomax 0.4 MG] 0.4 mg PO HS 05/04/15 [History] Isosorbide Mononitrate 30 mg [Imdur 30 MG] 30 mg PO DAILY 08/09/16 [History] Gabapentin 800 mg PO BID 08/26/18 [History] Omeprazole 40 mg PO DAILY 08/26/18 [History] Methylphenidate 5 mg [Ritalin 5 MG] 15 mg PO DAILY 12/05/19 [History] Ferrous Sulfate [Iron] 65 mg PO DAILY 12/06/19 [History] Metformin HCl [Glucophage Xr] 1,000 mg PO BID 12/06/19 [History] Nitroglycerin 0.4 mg Tablet [Nitrostat 0.4 MG Tablet] 0.4 mg SL Q5MIN PRN MR X 3 PRN 12/06/19 [History] Apixaban [Eliquis] 5 mg PO BID 03/15/20 [History] Amlodipine Besylate 10 mg PO DAILY 02/01/21 [History] Cyanocobalamin (Vitamin B-12) [Vitamin B12] 2,500 mcg PO DAILY 02/01/21 [History] Hydrocodone/Acetaminophen [Hydrocodone-Acetamin 10-325 mg] 1 each PO Q6H PRN PRN 02/01/21 [History] Insulin Glargine,Hum.rec.anlog [Lantus Solostar] 20 unit SQ DAILY 02/01/21 [History] Hx Tetanus, Diphtheria Vaccination/Date Given: No (unknwon) Hx Influenza Vaccination/Date Given: Yes Hx Pneumococcal Vaccination/Date Given: Yes Travel Risk - International Travel Have you traveled outside of the country in past 3 weeks: No - Coronavirus Screening Are you exhibiting any of the following symptoms?: No Close contact with a COVID-19 positive Pt in past 14-21 Days: No - Vaccine Status Have you recieved a Covid-19 vaccination: No - Review of Systems Constitutional: No Symptoms Ears, Nose, & Throat: No Symptoms Respiratory: No Symptoms Cardiac: No Symptoms Abdominal/Gastrointestinal: No Symptoms Musculoskeletal: Injury Skin: Skin Lesions Neurological: No Symptoms Endocrine: No Symptoms Hematologic/Lymphatic: No Symptoms - Past Medical History Pertinent Past Medical History: Yes Neurological History: No Pertinent History ENT History: Cataracts, Glaucoma Cardiac History: Hypertension, Other Respiratory History: Asthma, Other Endocrine Medical History: Diabetes Type II Musculoskeletal History: Fractures GI Medical History: GERD, Gallbladder Disease History: Other Psycho-Social History: Depression Male Reproductive Disorders: Prostate Problems Other Medical History: COVID-19, L Wrist Fracture (1982), Open Heart Surgery (1993), LE fracture (unable to recall which side, 1959's), Low Back Pain, LB surgery (1994 with rods placed) - Past Surgical History Past Surgical History: Yes Neuro Surgical History: No Pertinent History Cardiac: CABG, Cardiac Catheterization, Cardiac Stent Respiratory: No Pertinent History Gastrointestinal: Appendectomy, Cholecystectomy Genitourinary: No Pertinent History Musculoskeletal: Orthopedic Surgery Male Surgical History: No Pertinent History Other Surgical History: back surgery. fem pop. steriod injection in various joints. carpal tunnel surgery - Social History Smoking Status: Former smoker How long have you smoked: 1975 Exposure to second hand smoke: No Drug Use: none Patient Lives Alone: No - Nursing Vital Signs Nursing Vital Signs: Initial Vital Signs Temperature 98.1 F 05/23/21 16:00 Pain Scale Pain Intensity 0 - Physical Exam General Appearance: no apparent distress, alert Ears, Nose, Throat Exam: normal ENT inspection Neck Exam: normal inspection, supple, full range of motion Respiratory Exam: normal breath sounds, lungs clear Cardiovascular Exam: regular rate/rhythm, normal heart sounds Extremity Exam: other (3 cm flap laceration heart-shaped left third digit distal pulp with face of curve facing distally. Minimal oozing. Intact range of motion at DIP. Intact distal neurovascular. Mild blackening of flap.) Neurologic Exam: alert, oriented x 3, cooperative Skin Exam: normal color SpO2 Interpretation: normal SpO2: 95 O2 Delivery: Room Air Procedures - Laceration/Wound Repair Left Volar Finger Time of Procedure: 16:00 Wound Location: Left Wound Length (cm): 3 Wound's Depth, Shape: into muscle, flap, contused tissue Wound Explored: clean Irrigated: Yes Hibiclens Prep: Yes Anesthesia: 1% Lidocaine Volume Anesthetic (ccs): 4 Wound Repaired With: sutures Suture Size/Type: 4-0 Number of Sutures: 6 Layer Closure?: No Sterile Dressing Applied?: Yes Splint Applied?: Yes Ordered Tests: Active Orders 24 hr Category Date Time Status FINGER(S) Stat Exams 05/23/21 Taken Medication Summary Discontinued Medications Generic Name Dose Route Start Last Admin Trade Name Freq PRN Reason Stop Dose Admin Lidocaine HCl Confirm 05/23/21 15:50 Lidocaine Hcl 1% 20 Ml Mdv 20 Ml Ml Administered 05/23/21 15:51 Dose 1 ml .ROUTE .STK-MED ONE - Progress Progress: improved Progress Note: 05/23/21 16:25 Laceration is repaired. Tetanus is updated. Recommended Tylenol as needed for pain. No obvious fracture x-rays reviewed by me. Outpatient follow-up. Discussed signs symptoms of worsening needing return to ER which she seems understanding. Stable for discharge. Counseled pt/family regarding: diagnosis, need for follow-up, rad results - Departure Departure Disposition: Home Clinical Impression: Finger laceration Qualifiers: Encounter type: initial encounter Finger: middle finger Damage to nail status: without damage Foreign body presence: without foreign body Laterality: left Qualified Code(s): S61.213A - Laceration without foreign body of left middle finger without damage to nail, initial encounter Condition: Stable Critical Care Time: No Referrals: FLORIDALMA AVILES NP [Primary Care Provider] - Follow Up with PCP/3 days Instructions: Laceration Repair With Stitches (DC), Wound Care (DC) Additional Instructions: Take Tylenol as needed for pain. Keep it clean. Intermittent ice. Follow-up with primary care for reevaluation. Return to ER for increasing swelling pain, blackening of fingertip, redness extending proximally and distally, difficulty movements at interphalangeal joint, fever chills etc. Suture removal in 10 to 14 days.
[2021-05-23] MEDS ORDERED: Adacel Vial IM ONE ×2 (16:33→16:35)
--- NOTE | 2021-05-23 19:57 | XRAY ---
Indication: Laceration. Comparison: None 3 view left 3rd finger demonstrates distal tuft soft tissue swelling. Elsewhere osteopenia, mild/moderate degenerative changes all visualized IP joints, and scattered vascular calcifications. No other bony, articular, or soft tissue abnormalities.
== END 2021-05-23 16:46 | disposition home or self-care (01) ==
LOC: ED 15:01
DX: S61.213A Laceration without foreign body of left middle finger without damage to nail, initial encounter (principal); W31.9XXA Contact with unspecified machinery, initial encounter; E11.8 Type 2 diabetes mellitus with unspecified complications; Z79.4 Long term (current) use of insulin; Z79.84 Long term (current) use of oral hypoglycemic drugs; I10 Essential (primary) hypertension; Z79.01 Long term (current) use of anticoagulants; Z79.891 Long term (current) use of opiate analgesic; Z86.16 Personal history of COVID-19
CPT/HCPCS: 12002; 73140; 90471; 90715; 99283

== ENCOUNTER 2022-01-23 10:36 | Observation (INO) | payer MEDICARE ==
[2022-01-23] MEDS ORDERED: solu-MEDROL 125 MG, Sterile H2O 10 ml 2 ML IV ONE ×2 (10:46)
[2022-01-23] MEDS ORDERED: Sodium Chloride 0.9% 1000 ML 1,000 ML IV STA (10:46)
[2022-01-23] MEDS ORDERED: DUONEB 0.5-3 MG/3 ml Neb IH ONE ×2 (10:46→11:06)
[2022-01-23] MEDS ORDERED: ROCEPHIN 1 Gm-D5w 50 ml Bag** 1 G/50 ML IVPB IV STA (10:46)
[2022-01-23] MEDS ORDERED: Zithromax 500 MG/ 250 ML NaCl Premix 500 MG/250 ML IVPB IV STA (10:46)
[2022-01-23] MEDS ORDERED: TYLENOL 325 MG PO ONE (10:46)
[2022-01-23] MEDS ORDERED: Sterile H2O 10 ml IJ ONE (10:57)
[2022-01-23] MEDS ORDERED: TYLENOL 325 MG ONE (10:57)
[2022-01-23] MEDS ORDERED: ROCEPHIN 1 Gm-D5w 50 ml Bag** 1 G/50 ML IVPB IV ONE (10:58)
[2022-01-23] MEDS ORDERED: solu-MEDROL ONE (10:58)
[2022-01-23] MEDS ORDERED: Zithromax 500 MG/ 250 ML NaCl Premix 500 MG/250 ML IVPB IV ONE (10:58)
[2022-01-23] MEDS ORDERED: Sodium Chloride 0.9% 1000 ML 1,000 ML ONE (10:58)
[2022-01-23 11:08] LABS: Absolute Neutrophil Ct (ANC) 15.18 x10^3/uL (1.4-6.9); Basophil (Absolute #) 0.04 x10^3/uL (0-0.4); Eosinophil (Absolute #) 0 x10^3/uL (0-0.5); Hematocrit 33.3 % (42-50); Hemoglobin 10.8 g/dL (12.5-18.0); Lymphocyte (Absolute #) 0.64 x10^3/uL (1.0-4.6); Lymphocytes % 3.9 % (24.0-44.0); Mean Cell Volume 92.8 fL (78-100); Mean Corpuscular Hemoglobin 30.1 pg (26-32); Mean Corpuscular Hgb Concent. 32.4 g/dL (32-36); Mean Platelet Volume 12.6 fL (7.5-11.0); Monocyte (Absolute #) 0.51 x10^3/uL (0.0-1.3); Monocytes % 3.1 % (0.0-12.0); Neutrophil % 92.4 % (36.0-66.0); Platelet Count 132 x10^3/uL (150-450); Red Blood Count 3.59 x10^6/uL (4.1-5.6); Red Cell Distribution Width 14.9 % (11.5-14.0); White Blood Count 16.4 x10^3/uL (4.0-10.5)
[2022-01-23 11:48] LABS: INFLUENZA A NEGATIVE (NEGATIVE); INFLUENZA B NEGATIVE (NEGATIVE); RESPIRATORY SYNCTIAL VIRUS NEGATIVE (Negative); SARS-CoV-2 Xpert Express NEGATIVE (NEGATIVE)
[2022-01-23 11:51] LABS: ALBUMIN 3.5 g/dL (3.5-5.0); ANION GAP 11.7 MEQ/L (5-15); BILIRUBIN,TOTAL 0.5 mg/dL (0.2-1.3); Calcium 9.3 mg/dL (8.4-10.2); Creatinine 1 1.72 mg/dL (0.66-1.25); EST GLOMERULAR FILTRATION RATE 40.9 ML/MIN; Total Protein 6.9 g/dL (6.3-8.2)
[2022-01-23 12:06] LABS: INR 0.99 (0.8-3.0); PROTIME 10.5 SECONDS (9.4-12.5)
--- NOTE | 2022-01-23 12:19 | ERPHSYRPT ---
- History of Present Illness Time Seen by Provider: 01/23/22 10:41 Source: patient Exam Limitations: no limitations Patient Subjective Stated Complaint: Weakness Triage Nursing Assessment: Patient brought back to ED per w/c and transferred to bed with assist of 1. Patient A+O X 3. Patient's skin flushed, warm and dry. Patient's reports patient having increased weakness, fever and cough this am. Patient required assistance with ADLS, which usually does per self. Patient complains of fatigue, weakness, fever, non productive cough and body aches. Lungs noted to be diminished. Physician History: Patient here with cough, shortness of breath, weakness. Fever, tachycardia. Patient meeting sepsis criteria. Plan for sepsis work-up today. Patient states he woke up with the symptoms. Has had increasing cough. Patient's adult daughter and are at bedside to help provide history. Timing/Duration: today Severity: moderate Modifying Factors: Improves With: cold therapy Associated Symptoms: nausea Allergies/Adverse Reactions: Iodinated Contrast Media [Iodinated Contrast Media - IV Dye] Allergy (Intermediate, Verified 01/23/22 10:47) unknown- hives morphine Allergy (Intermediate, Verified 01/23/22 10:47) confusion and combative hydromorphone HCl [From Dilaudid] Adverse Reaction (Intermediate, Verified 01/23/22 10:47) confusion and combative oxycodone HCl [From OxyContin] Adverse Reaction (Intermediate, Verified 01/23/22 10:47) confusion/ combative Home Medications: Bimatoprost 0.01% [Lumigan 0.01% 2.5 ml] 1 drop OP HS 05/04/15 [History] Multivitamin/Iron/Folic Acid [Centrum Complete Multivit Tab] 1 each PO DAILY 05/04/15 [History] Tamsulosin HCl 0.4 mg [Flomax 0.4 MG] 0.4 mg PO DAILY 05/04/15 [History] Isosorbide Mononitrate 30 mg [Imdur 30 MG] 30 mg PO DAILY 08/09/16 [History] Omeprazole 40 mg PO DAILY 08/26/18 [History] Methylphenidate 5 mg [Ritalin 5 MG] 20 mg PO DAILY 12/05/19 [History] Ferrous Sulfate [Iron] 65 mg PO DAILY 12/06/19 [History] Metformin HCl [Glucophage Xr] 1,000 mg PO BID 12/06/19 [History] Nitroglycerin 0.4 mg Tablet [Nitrostat 0.4 MG Tablet] 0.4 mg SL Q5MIN PRN MR X 3 PRN 12/06/19 [History] Apixaban [Eliquis] 5 mg PO BID 03/15/20 [History] Amlodipine Besylate 10 mg PO DAILY 02/01/21 [History] Cyanocobalamin (Vitamin B-12) [Vitamin B12] 2,500 mcg PO DAILY 02/01/21 [Histor y] Hydrocodone/Acetaminophen [Hydrocodone-Acetamin 10-325 mg] 1 each PO Q6H PRN PRN 02/01/21 [History] Insulin Glargine,Hum.rec.anlog [Lantus Solostar] 20 unit SQ DAILY 02/01/21 [History] Methylphenidate 5 mg [Ritalin 5 MG] 10 mg PO HS 09/17/21 [History] Zinc Gluconate [Zinc] 1 tab PO DAILY 01/23/22 [History] Hx Tetanus, Diphtheria Vaccination/Date Given: No Hx Influenza Vaccination/Date Given: Yes Hx Pneumococcal Vaccination/Date Given: Yes Immunizations Up to Date: Yes Travel Risk - International Travel Have you traveled outside of the country in past 3 weeks: No - Coronavirus Screening Are you exhibiting any of the following symptoms?: No Symptoms: Fever, Cough: New Onset, Shortness of Breath, Headaches/Body Aches/Fatigue Close contact with a COVID-19 positive Pt in past 14-21 Days: No - Vaccine Status Have you recieved a Covid-19 vaccination: No - Review of Systems Constitutional: Fever, Weakness, No Chills Eyes: No Symptoms Ears, Nose, & Throat: No Symptoms Respiratory: Cough, No Dyspnea Cardiac: No Chest Pain, No Edema, No Syncope Abdominal/Gastrointestinal: No Abdominal Pain, No Nausea, No Vomiting, No Diarrhea Genitourinary Symptoms: No Dysuria Musculoskeletal: No Back Pain, No Neck Pain Skin: No Rash Neurological: No Dizziness, No Focal Weakness, No Sensory Changes Psychological: No Symptoms Endocrine: No Symptoms All Other Systems: Reviewed and Negative - Past Medical History Pertinent Past Medical History: Yes Neurological History: No Pertinent History ENT History: Cataracts, Glaucoma Cardiac History: Hypertension, Myocardial Infarction ([place]), Other Respiratory History: Asthma, COPD, Other Endocrine Medical History: Diabetes Type II Musculoskeletal History: Fractures GI Medical History: GERD, Gallbladder Disease History: Other Psycho-Social History: Depression Male Reproductive Disorders: Prostate Problems Other Medical History: COVID-19, L Wrist Fracture (1982), Open Heart Surgery (1993), LE fracture (unable to recall which side, 1959'), Low Back Pain, LB surgery (1994 with rods placed) - Past Surgical History Past Surgical History: Yes Neuro Surgical History: No Pertinent History Cardiac: CABG, Cardiac Catheterization, Cardiac Stent Respiratory: Chest Surgery Gastrointestinal: Appendectomy, Cholecystectomy Genitourinary: No Pertinent History Musculoskeletal: Orthopedic Surgery Male Surgical History: No Pertinent History Other Surgical History: back surgery. fem pop. steriod injection in various joints. carpal tunnel surgery - Social History Smoking Status: Never smoker How long have you smoked: 1975 Exposure to second hand smoke: No Drug Use: none Patient Lives Alone: No - Nursing Vital Signs Nursing Vital Signs: Initial Vital Signs Temperature 101.1 F 01/23/22 10:48 Pulse Rate 109 H 01/23/22 10:48 Respiratory Rate 20 01/23/22 10:48 Blood Pressure 156/83 01/23/22 10:48 O2 Sat by Pulse Oximetry 94 L 01/23/22 10:48 Pain Scale Pain Intensity 0 - Physical Exam General Appearance: no apparent distress, alert, other (Febrile) Eye Exam: PERRL/EOMI, eyes nml inspection Ears, Nose, Throat Exam: normal ENT inspection, TMs normal, pharynx normal, moist mucous membranes Neck Exam: normal inspection, non-tender, supple, full range of motion Respiratory Exam: normal breath sounds, lungs clear, No respiratory distress Cardiovascular Exam: normal heart sounds, normal peripheral pulses, other (Tachycardia) Gastrointestinal/Abdomen Exam: soft, normal bowel sounds, No tenderness, No mass Back Exam: normal inspection, normal range of motion, No CVA tenderness, No vertebral tenderness Extremity Exam: normal inspection, normal range of motion, pelvis stable Neurologic Exam: alert, oriented x 3, cooperative, normal mood/affect, nml cerebellar function, nml station & gait, sensation nml, No motor deficits Skin Exam: normal color, warm, dry, No rash Lymphatic Exam: No adenopathy SpO2: 94 - Course Nursing assessment & vital signs reviewed: Yes EKG Interpreted by Me: Sinus Rhythm - Radiology Exams Chest X-ray Interpretation: Interpreted by me (Bilateral infiltrates consistent with pneumonia) Ordered Tests: Active Orders 24 hr Category Date Time Status Call Admit Doctor for Orders ON ADMISSION Care 01/23/22 12:28 Ordered [place] STAT Care 01/23/22 10:48 Active Code Status Order ROUTINE Care 01/23/22 12:27 Ordered EKG-ER Only STAT Care 01/23/22 10:46 Active IV Care Q6H Care 01/23/22 12:27 Ordered IV Insertion STAT Care 01/23/22 10:[address] in Observation ROUTINE Care 01/23/22 12:27 Ordered Consistent Carbohydrate Diet 2000 Calorie Diet 01/23/22 Breakfast Ordered CHEST 2 VIEWS (PA AND LAT) Stat Exams 01/23/22 10:47 Taken BLOOD CULTURE Stat Lab 01/23/22 11:00 Received CBC W DIFF AM.LAB Lab 01/24/22 04:00 Ordered CBC W DIFF Stat Lab 01/23/22 10:55 Completed CMP AM.LAB Lab 01/24/22 04:00 Ordered CMP Stat Lab 01/23/22 10:55 Completed CULTURE,SPUTUM Stat Lab 01/23/22 10:47 Ordered Lactic Acid AM.LAB Lab 01/24/22 04:00 Ordered PROCALCITONIN Stat Lab 01/23/22 10:55 Completed PROTIME WITH INR Stat Lab 01/23/22 10:55 Completed UA W/RFX CULTURE Stat Lab 01/23/22 Ordered Respiratory Therapy Assessment DAILY RT 01/23/22 11:29 Completed Medication Summary Generic Name Dose Route Start Last Admin Trade Name Freq PRN Reason Stop Dose Admin Acetaminophen 650 mg 01/23/22 12:27 Acetaminophen 325 Mg Tablet PO 02/22/22 12:26 Q4H PRN PRN PAIN AND/OR FEVER Albuterol Sulfate 2.5 mg 01/23/22 12:27 Albuterol Sulfate 2.5 Mg/3 Ml Neb IH 02/22/22 12:26 Q2H PRN PRN SHORTNESS OF BREATH/WHEEZING Sodium Chloride 1,000 mls @ 125 mls/hr 01/23/22 12:30 Sodium Chloride 0.9% 1000 Ml IV 02/22/22 12:29 .Q8H RUTH Ondansetron HCl 4 mg 01/23/22 12:27 Ondansetron Hcl 4 Mg/2 Ml Vial IV 02/22/22 12:26 Q6H PRN PRN NAUSEA/VOMITING Discontinued Medications Generic Name Dose Route Start Last Admin Trade Name Freq PRN Reason Stop Dose Admin Acetaminophen 975 mg 01/23/22 10:46 01/23/22 11:02 Acetaminophen 325 Mg Tablet PO 01/23/22 10:47 975 mg STAT ONE Administration Acetaminophen Confirm 01/23/22 10:57 Acetaminophen 325 Mg Tablet Administered 01/23/22 10:58 Dose 975 mg .ROUTE .STK-MED ONE Albuterol/Ipratropium 3 ml 01/23/22 10:46 01/23/22 11:29 Ipratropium/Albuterol Sulfate 3 Ml Ampul.Neb IH 01/23/22 10:47 3 ml STAT ONE Administration Albuterol/Ipratropium Confirm 01/23/22 11:06 Ipratropium/Albuterol Sulfate 3 Ml Ampul.Neb Administered 01/23/22 11:07 Dose 3 ml IH .STK-MED ONE Methylprednisolone Sodium 0 mg 01/23/22 10:46 01/23/22 11:00 Succinate 125 mg/ Sterile IV 01/23/22 10:47 125 mg Water 2 ml STAT ONE Administration Sodium Chloride 1,000 mls @ 999 mls/hr 01/23/22 10:46 01/23/22 12:03 Sodium Chloride 0.9% 1000 Ml IV 01/23/22 11:46 Infused .Q1H1M STA Infusion Azithromycin 500 mg in 250 mls @ 250 mls/hr 01/23/22 10:46 01/23/22 12:14 Zithromax 500 Mg/ 250 Ml Nacl Premix IV 01/23/22 11:45 Infused STAT STA Infusion Ceftriaxone Sodium/Dextrose 1 g in 50 mls @ 100 mls/hr 01/23/22 10:46 01/23/22 12:02 Rocephin 1 Gm-D5w 50 Ml Bag IV 01/23/22 11:15 Infused STAT STA Infusion Azithromycin Confirm 01/23/22 10:58 Zithromax 500 Mg/ 250 Ml Nacl Premix Administered 01/23/22 10:59 Dose 500 mg in 250 mls @ ud IV .STK-MED ONE Sodium Chloride Confirm 01/23/22 10:58 Sodium Chloride 0.9% 1000 Ml Administered 01/23/22 10:59 Dose 1,000 mls @ ud .ROUTE .STK-MED ONE Ceftriaxone Sodium/Dextrose Confirm 01/23/22 10:58 Rocephin 1 Gm-D5w 50 Ml Bag Administered 01/23/22 10:59 Dose 1 g in 50 mls @ ud IV .STK-MED ONE Methylprednisolone Sodium Succinate Confirm 01/23/22 10:58 Methylprednis Sod Succ 125 Mg/2 Ml Vial Administered 01/23/22 10:59 Dose 125 mg .ROUTE .STK-MED ONE Sterile Water Confirm 01/23/22 10:57 Water For Injection,Sterile 10 Ml Vial Administered 01/23/22 10:58 Dose 10 ml IJ .STK-MED ONE Lab/Rad Data: Laboratory Result Diagrams 01/23/22 10:55 01/23/22 10:55 Laboratory Results 01/23/22 01/23/22 01/23/22 Range/Units 11:00 10:55 10:55 WBC (4.0-10.5) x10^3/uL RBC (4.1-5.6) x10^6/uL Hgb (12.5-18.0) g/dL Hct (42-50) % MCV (78-100) fL MCH (26-32) pg MCHC (32-36) g/dL RDW (11.5-14.0) % Plt Count (150-450) x10^3/uL MPV (7.5-11.0) fL Gran % (36.0-66.0) % Immature Gran % (Auto) (0.00-0.4) % Nucleat RBC Rel Count (0.00-0.1) % Eos # (Auto) (0-0.5) x10^3/uL Immature Gran # (Auto) (0.00-0.03) x10^3u/L Absolute Lymphs (auto) (1.0-4.6) x10^3/uL Absolute Monos (auto) (0.0-1.3) x10^3/uL Absolute Nucleated RBC (0.00-0.01) x10^3u/L Lymphocytes % (24.0-44.0) % Monocytes % (0.0-12.0) % Eosinophils % (0.00-5.0) % Basophils % (0.0-0.4) % Absolute Granulocytes (1.4-6.9) x10^3/uL Basophils # (0-0.4) x10^3/uL PT 10.5 (9.4-12.5) SECONDS INR 0.99 (0.8-3.0) Sodium (137-145) mmol/L Potassium (3.5-5.1) mmol/L Chloride (98-107) mmol/L Carbon Dioxide (22-30) mmol/L Anion Gap (5-15) MEQ/L BUN (9-20) mg/dL Creatinine (0.66-1.25) mg/dL Estimated GFR ML/MIN Glucose (74-106) mg/dL Calcium (8.4-10.2) mg/dL Total Bilirubin (0.2-1.3) mg/dL AST (17-59) U/L ALT (0-50) U/L Alkaline Phosphatase (38-126) U/L Serum Total Protein (6.3-8.2) g/dL Albumin (3.5-5.0) g/dL Procalcitonin 1.130 H (0.030-0.080) ng/mL Influenza Type A Ag NEGATIVE (NEGATIVE) Influenza Type B Ag NEGATIVE (NEGATIVE) RSV (PCR) NEGATIVE (Negative) SARS-CoV-2 (PCR) NEGATIVE (NEGATIVE) 01/23/22 01/23/22 Range/Units 10:55 10:55 WBC 16.4 H (4.0-10.5) x10^3/uL RBC 3.59 L (4.1-5.6) x10^6/uL Hgb 10.8 L (12.5-18.0) g/dL Hct 33.3 L (42-50) % MCV 92.8 (78-100) fL MCH 30.1 (26-32) pg MCHC 32.4 (32-36) g/dL RDW 14.9 H (11.5-14.0) % Plt Count 132 L (150-450) x10^3/uL MPV 12.6 H (7.5-11.0) fL Gran % 92.4 H (36.0-66.0) % Immature Gran % (Auto) 0.4 (0.00-0.4) % Nucleat RBC Rel Count 0.0 (0.00-0.1) % Eos # (Auto) 0 (0-0.5) x10^3/uL Immature Gran # (Auto) 0.06 H (0.00-0.03) x10^3u/L Absolute Lymphs (auto) 0.64 L (1.0-4.6) x10^3/uL Absolute Monos (auto) 0.51 (0.0-1.3) x10^3/uL Absolute Nucleated RBC 0.00 (0.00-0.01) x10^3u/L Lymphocytes % 3.9 L (24.0-44.0) % Monocytes % 3.1 (0.0-12.0) % Eosinophils % 0.0 (0.00-5.0) % Basophils % 0.2 (0.0-0.4) % Absolute Granulocytes 15.18 H (1.4-6.9) x10^3/uL Basophils # 0.04 (0-0.4) x10^3/uL PT (9.4-12.5) SECONDS INR (0.8-3.0) Sodium 137 (137-145) mmol/L Potassium 5.0 (3.5-5.1) mmol/L Chloride 108 H (98-107) mmol/L Carbon Dioxide 23 (22-30) mmol/L Anion Gap 11.7 (5-15) MEQ/L BUN 27 H (9-20) mg/dL Creatinine 1.72 H (0.66-1.25) mg/dL Estimated GFR 40.9 ML/MIN Glucose 314 H (74-106) mg/dL Calcium 9.3 (8.4-10.2) mg/dL Total Bilirubin 0.50 (0.2-1.3) mg/dL AST 34 (17-59) U/L ALT 19 (0-50) U/L Alkaline Phosphatase 63 (38-126) U/L Serum Total Protein 6.9 (6.3-8.2) g/dL Albumin 3.5 (3.5-5.0) g/dL Procalcitonin (0.030-0.080) ng/mL Influenza Type A Ag (NEGATIVE) Influenza Type B Ag (NEGATIVE) RSV (PCR) (Negative) SARS-CoV-2 (PCR) (NEGATIVE) - Progress Progress: improved Progress Note: 01/23/22 12:17 Chest x-ray, basic labs, blood cultures, procalcitonin, fluids, antipyretics. Patient feeling improved here. Chest x-ray demonstrates pneumonia. Will be treated as community-acquired pneumonia, Rocephin, azithromycin started empirically. Plan for admission to the hospital. Will discuss with Dr. Rodriguez. Discussed with : Eleanor Will see patient in: hospital (observation) - Departure Departure Disposition: Observation Clinical Impression: Community acquired pneumonia Condition: Stable Critical Care Time: No Referrals: FLORIDALMA AVILES NP [Primary Care Provider] - Follow up/PCP as directed
[2022-01-23] MEDS ORDERED: Zofran 4 MG/2 ML VIAL IV PRN (12:27)
[2022-01-23] MEDS ORDERED: PROVENTIL 2.5 MG/3 ML NEB IH PRN (12:27)
[2022-01-23] MEDS ORDERED: TYLENOL 325 MG PO PRN (12:27)
[2022-01-23] MEDS: Sodium Chloride 0.9% 1000 ML 1,000 ML IV SCH (12:59)
[2022-01-23] MEDS ORDERED: HYDROCODONE-ACETAMIN 10-325 MG PO PRN (15:23)
[2022-01-23] MEDS ORDERED: Nitrostat 0.4 MG Tablet SL PRN (15:23)
[2022-01-23 15:44] LABS: Appearance CLEAR (CLEAR); Glucose >=1000 mg/dL (NEGATIVE)
[2022-01-23 15:45] LABS: Bilirubin NEGATIVE (NEGATIVE); Dipstick done @ ? MAIN LAB; Ketones TRACE (NEGATIVE); Nitrite NEGATIVE (NEGATIVE); Protein,Urine Dip 100 (Negative); RBC TRACE-INTACT Ery/ul (0-5); Urobilinogen 0.2 mg/dL (0-1)
[2022-01-23 15:50] LABS: Urine Cultured Indicated? NO
[2022-01-23] MEDS: HUMALOG SQ PRN ×2 (17:39→21:38)
--- NOTE | 2022-01-23 20:23 | XRAY ---
Indication: Pneumonia. Comparison: November 25, 2021 PA/lateral chest demonstrates new mild bibasilar infiltrates versus atelectasis without large effusion. Remaining heart and upper lungs unremarkable again with incidental CABG. Bony thorax intact again with osteopenia and degenerative changes.
[2022-01-23] MEDS: LYRICA 150MG PO SCH (20:39)
[2022-01-23] MEDS: ELIQUIS 2.5 MG TABLET PO SCH (20:39)
[2022-01-23] MEDS: LUMIGAN 0.01% 2.5 ML OP SCH (20:39)
[2022-01-23] MEDS ORDERED: NON-FORMULARY ITEM (Apixaban [Eliquis] 5 MG Tablet) PO SCH (22:00)
[2022-01-24] MEDS: Sodium Chloride 0.9% 1000 ML 1,000 ML IV SCH ×3 (02:11→17:18)
[2022-01-24] MEDS ORDERED: Zithromax 500 MG/ 250 ML NaCl Premix 500 MG/250 ML IVPB IV SCH ×2 (02:38→22:00)
[2022-01-24] MEDS ORDERED: ROCEPHIN 1 Gm-D5w 50 ml Bag** 1 G/50 ML IVPB IV SCH ×2 (02:40→22:00)
[2022-01-24 05:04] LABS: Absolute Neutrophil Ct (ANC) 15.23 x10^3/uL (1.4-6.9); Basophil (Absolute #) 0.01 x10^3/uL (0-0.4); Eosinophil (Absolute #) 0 x10^3/uL (0-0.5); Hematocrit 31.8 % (42-50); Hemoglobin 10.2 g/dL (12.5-18.0); Lymphocyte (Absolute #) 0.97 x10^3/uL (1.0-4.6); Lymphocytes % 5.8 % (24.0-44.0); Mean Cell Volume 90.9 fL (78-100); Mean Corpuscular Hemoglobin 29.1 pg (26-32); Mean Corpuscular Hgb Concent. 32.1 g/dL (32-36); Mean Platelet Volume 12.8 fL (7.5-11.0); Monocyte (Absolute #) 0.49 x10^3/uL (0.0-1.3); Monocytes % 2.9 % (0.0-12.0); Neutrophil % 90.8 % (36.0-66.0); Platelet Count 127 x10^3/uL (150-450); Red Cell Distribution Width 14.7 % (11.5-14.0); White Blood Count 16.8 x10^3/uL (4.0-10.5)
[2022-01-24 05:30] LABS: ALBUMIN 3.1 g/dL (3.5-5.0); ANION GAP 5.8 MEQ/L (5-15); BILIRUBIN,TOTAL 0.4 mg/dL (0.2-1.3); Calcium 9.5 mg/dL (8.4-10.2); Creatinine 1 1.52 mg/dL (0.66-1.25); EST GLOMERULAR FILTRATION RATE 47.1 ML/MIN; Potassium 4.2 mmol/L (3.5-5.1); Total Protein 6.5 g/dL (6.3-8.2)
[2022-01-24] MEDS: ELIQUIS 2.5 MG TABLET PO SCH ×2 (08:12→20:37)
[2022-01-24] MEDS: Vitamin B-12 500 MCG PO SCH (08:12)
[2022-01-24] MEDS: Flomax 0.4 MG PO SCH (08:13)
[2022-01-24] MEDS: FEOSOL 325 MG PO SCH (08:13)
[2022-01-24] MEDS: Imdur 30 MG PO SCH (08:13)
[2022-01-24] MEDS: LYRICA 150MG PO SCH ×2 (08:13→20:37)
[2022-01-24] MEDS: Protonix 40MG Tablet PO SCH (08:13)
[2022-01-24] MEDS: NORVASC 5 MG PO SCH (08:13)
[2022-01-24] MEDS: HUMALOG SQ PRN ×4 (08:14→21:08)
[2022-01-24] MEDS ORDERED: APRESOLINE 20 MG/ML INJ IV PRN (08:32)
[2022-01-24] MEDS ORDERED: NON-FORMULARY ITEM (Cyanocobalamin (Vitamin B-12) [Vitamin B12] 2,500 MCG Tablet) PO SCH (10:00)
[2022-01-24] MEDS ORDERED: NON-FORMULARY ITEM (Amlodipine Besylate [Amlodipine Besylate] 10 MG Tablet) PO SCH (10:00)
[2022-01-24] MEDS ORDERED: NON-FORMULARY ITEM (Insulin Glargine,Hum.Rec.Anlog [Lantus Solostar] 100 UNIT/ML Ml) SQ SCH (10:00)
[2022-01-24] MEDS ORDERED: NON-FORMULARY ITEM (Omeprazole [Omeprazole] 40 MG Capsule.Dr) PO SCH (10:00)
[2022-01-24] MEDS ORDERED: Lantus Insulin SQ SCH (10:00)
[2022-01-24] MEDS ORDERED: Lantus Insulin SQ ONE (15:30)
--- NOTE | 2022-01-24 17:07 | PCM.HP ---
History of Present Illness - Chief Complaint Chief Complaint: Pneumonia History of Present Illness: is a 81 year old male pt of [facility] with PVD, CAD (hx CABG), back pain, DMII, HTN, and COPD/asthma who was admitted through ER yesterday with PNA. He was weak with AMS x 24hours; disoriented and tired. Was fine the previous day. Family had to dress him. Subjective fever. Cough with some mucous. IN ER, CXR showed PNA. Started on rocephin and zithromax. Today he is feeling fine and would like to go home. - Review of Systems Constitutional: Fever Respiratory: Cough, Short Of Breath Cardiac: Edema (chronic s/p fem-pop bypass) Endocrine: Other (night sweats occ) Medications & Allergies Home Medications: Home Medication List Bimatoprost 0.01% [Lumigan 0.01% 2.5 ml] 1 drop OP HS 05/04/15 [History Confirmed 01/23/22] Multivitamin/Iron/Folic Acid [Centrum Complete Multivit Tab] 1 each PO DAILY 05/04/15 [History Confirmed 01/23/22] Tamsulosin HCl 0.4 mg [Flomax 0.4 MG] 0.4 mg PO DAILY 05/04/15 [History Confirmed 01/23/22] Isosorbide Mononitrate 30 mg [Imdur 30 MG] 30 mg PO DAILY 08/09/16 [History Confirmed 01/23/22] Omeprazole 40 mg PO DAILY 08/26/18 [History Confirmed 01/23/22] Methylphenidate 5 mg [Ritalin 5 MG] 20 mg PO DAILY 12/05/19 [History Confirmed 01/23/22] Ferrous Sulfate [Iron] 65 mg PO DAILY 12/06/19 [History Confirmed 01/23/22] Metformin HCl [Glucophage Xr] 1,000 mg PO BID 12/06/19 [History Confirmed 01/23/22] Nitroglycerin 0.4 mg Tablet [Nitrostat 0.4 MG Tablet] 0.4 mg SL Q5MIN PRN MR X 3 PRN 12/06/19 [History Confirmed 01/23/22] Apixaban [Eliquis] 5 mg PO BID 03/15/20 [History Confirmed 01/23/22] Amlodipine Besylate 10 mg PO DAILY 02/01/21 [History Confirmed 01/23/22] Cyanocobalamin (Vitamin B-12) [Vitamin B12] 2,500 mcg PO DAILY 02/01/21 [History Confirmed 01/23/22] Hydrocodone/Acetaminophen [Hydrocodone-Acetamin 10-325 mg] 1 each PO Q6H PRN PRN 02/01/21 [History Confirmed 01/23/22] Insulin Glargine,Hum.rec.anlog [Lantus Solostar] 20 unit SQ DAILY 02/01/21 [History Confirmed 01/23/22] Methylphenidate 5 mg [Ritalin 5 MG] 10 mg PO HS 09/17/21 [History Confirmed 01/23/22] Pregabalin [Lyrica 150Mg] 1 tab PO BID 01/23/22 [History Confirmed 01/23/22] Zinc Gluconate [Zinc] 1 tab PO DAILY 01/23/22 [History Confirmed 01/23/22] Allergies/Adverse Reactions: Allergies Allergy/AdvReac Type Severity Reaction Status Date / Time Iodinated Contrast Media Allergy Intermediate unknown- Verified 01/23/22 13:03 [Iodinated Contrast Media - hives IV Dye] morphine Allergy Intermediate confusion Verified 01/23/22 13:03 and combative hydromorphone HCl AdvReac Intermediate confusion Verified 01/23/22 13:03 [From Dilaudid] and combative oxycodone HCl AdvReac Intermediate confusion/ Verified 01/23/22 13:03 [From OxyContin] combative - Past Medical History Past Medical History: Yes Neurological History: No Pertinent History ENT History: Cataracts, Glaucoma Cardiac History: Hypertension, Myocardial Infarction ([place]), Other Respiratory History: Asthma, COPD, Other Endocrine Medical History: Diabetes Type II Musculoskelatal History: Fractures GI Medical History: GERD, Gallbladder Disease History: Other Pyscho-Social History: Depression Male Reproductive Disorders: Prostate Problems Comment: COVID-19, L Wrist Fracture (1982), Open Heart Surgery (1993), LE fracture (unable to recall which side, 1959's), Low Back Pain, LB surgery (1994 with rods placed) - Past Surgical History Past Surgical History: Yes Neuro Surgical History: No Pertinent History Cardiac History: CABG, Cardiac Catheterization, Cardiac Stent Respiratory Surgery: Chest Surgery GI Surgical History: Appendectomy, Cholecystectomy Genitourinary Surgical Hx: No Pertinent History Musculskeletal Surgical Hx: Orthopedic Surgery Male Surgical History: No Pertinent History Other Surgical History: back surgery. fem pop. steriod injection in various joints. carpal tunnel surgery - Social History Smoking Status: Never smoker How long have you smoked: 1975 Exposure to second hand smoke: No Alcohol: None Drug Use: none - Physical Exam Vital Signs: Vital Signs - 24 hr Temp Pulse Resp BP Pulse Ox 01/24/22 16:00 97.1 F 64 23 177/71 97 01/24/22 11:37 97.9 F 66 16 176/79 94 L 01/24/22 07:39 98.4 F 70 16 177/79 93 L 01/24/22 03:57 97.8 F 82 20 160/83 92 L 01/24/22 00:00 97.9 F 87 20 136/71 91 L 01/23/22 20:00 98.0 F 90 22 133/62 92 L 01/23/22 17:45 80 16 92 L 01/23/22 17:32 92 L General Appearance: no apparent distress, alert Neurologic Exam: oriented x 3, cooperative, other (sitting in chair) Eye Exam: eyes nml inspection Ears, Nose, Throat Exam: moist mucous membranes Neck Exam: normal inspection, No lymphadenopathy, No thyromegaly Respiratory Exam: normal breath sounds, lungs clear, No crackles/rales, No rhonchi, No wheezing Cardiovascular Exam: regular rate/rhythm, normal heart sounds, No murmur Gastrointestinal/Abdomen Exam: soft, normal bowel sounds, No tenderness, No distention, No mass, No guarding, No rebound Back Exam: normal inspection, No rash Extremity Exam: normal inspection, swelling (tr LE edema on L) Skin Exam: normal color, warm, dry, No rash Results - Labs Lab/Micro Results: Lab Results-Last 24 Hours 01/23/22 01/24/22 01/24/22 Range/Units 21:15 04:30 04:30 WBC 16.8 H (4.0-10.5) x10^3/uL RBC 3.50 L (4.1-5.6) x10^6/uL Hgb 10.2 L (12.5-18.0) g/dL Hct 31.8 L (42-50) % MCV 90.9 (78-100) fL MCH 29.1 (26-32) pg MCHC 32.1 (32-36) g/dL RDW 14.7 H (11.5-14.0) % Plt Count 127 L (150-450) x10^3/uL MPV 12.8 H (7.5-11.0) fL Gran % 90.8 H (36.0-66.0) % Immature Gran % (Auto) 0.4 (0.00-0.4) % Nucleat RBC Rel Count 0.0 (0.00-0.1) % Eos # (Auto) 0 (0-0.5) x10^3/uL Immature Gran # (Auto) 0.07 H (0.00-0.03) x10^3u/L Absolute Lymphs (auto) 0.97 L (1.0-4.6) x10^3/uL Absolute Monos (auto) 0.49 (0.0-1.3) x10^3/uL Absolute Nucleated RBC 0.00 (0.00-0.01) x10^3u/L Lymphocytes % 5.8 L (24.0-44.0) % Monocytes % 2.9 (0.0-12.0) % Eosinophils % 0.0 (0.00-5.0) % Basophils % 0.1 (0.0-0.4) % Absolute Granulocytes 15.23 H (1.4-6.9) x10^3/uL Basophils # 0.01 (0-0.4) x10^3/uL Sodium 136 L (137-145) mmol/L Potassium 4.2 (3.5-5.1) mmol/L Chloride 110 H (98-107) mmol/L Carbon Dioxide 24 (22-30) mmol/L Anion Gap 5.8 (5-15) MEQ/L BUN 25 H (9-20) mg/dL Creatinine 1.52 H (0.66-1.25) mg/dL Estimated GFR 47.1 ML/MIN Glucose 245 H (74-106) mg/dL POC Glucometer 396 H (74 to 106) mg/dL Lactic Acid (0.4-2.0) Calcium 9.5 (8.4-10.2) mg/dL Total Bilirubin 0.40 (0.2-1.3) mg/dL AST 23 (17-59) U/L ALT 16 (0-50) U/L Alkaline Phosphatase 60 (38-126) U/L Serum Total Protein 6.5 (6.3-8.2) g/dL Albumin 3.1 L (3.5-5.0) g/dL 01/24/22 01/24/22 01/24/22 Range/Units 05:04 07:30 11:15 WBC (4.0-10.5) x10^3/uL RBC (4.1-5.6) x10^6/uL Hgb (12.5-18.0) g/dL Hct (42-50) % MCV (78-100) fL MCH (26-32) pg MCHC (32-36) g/dL RDW (11.5-14.0) % Plt Count (150-450) x10^3/uL MPV (7.5-11.0) fL Gran % (36.0-66.0) % Immature Gran % (Auto) (0.00-0.4) % Nucleat RBC Rel Count (0.00-0.1) % Eos # (Auto) (0-0.5) x10^3/uL Immature Gran # (Auto) (0.00-0.03) x10^3u/L Absolute Lymphs (auto) (1.0-4.6) x10^3/uL Absolute Monos (auto) (0.0-1.3) x10^3/uL Absolute Nucleated RBC (0.00-0.01) x10^3u/L Lymphocytes % (24.0-44.0) % Monocytes % (0.0-12.0) % Eosinophils % (0.00-5.0) % Basophils % (0.0-0.4) % Absolute Granulocytes (1.4-6.9) x10^3/uL Basophils # (0-0.4) x10^3/uL Sodium (137-145) mmol/L Potassium (3.5-5.1) mmol/L Chloride (98-107) mmol/L Carbon Dioxide (22-30) mmol/L Anion Gap (5-15) MEQ/L BUN (9-20) mg/dL Creatinine (0.66-1.25) mg/dL Estimated GFR ML/MIN Glucose (74-106) mg/dL POC Glucometer 208 H 270 H (74 to 106) mg/dL Lactic Acid 0.7 (0.4-2.0) Calcium (8.4-10.2) mg/dL Total Bilirubin (0.2-1.3) mg/dL AST (17-59) U/L ALT (0-50) U/L Alkaline Phosphatase (38-126) U/L Serum Total Protein (6.3-8.2) g/dL Albumin (3.5-5.0) g/dL Accuchecks Date 01/24/22 Date 01/24/22 Time 11:55 - Radiology Impressions Radiology Exams & Impressions: Radiology Procedures Category Date Time Status CHEST 2 VIEWS (PA AND LAT) Stat Exams 01/23/22 10:47 Completed - Other Procedures and Tests Respiratory Therapy 01/23/22 17:43 Respiratory Therapy Assessment DAILY Assessment/Plan (1) Community acquired pneumonia Current Visit: Yes Status: Acute Qualifiers: Laterality: unspecified laterality Qualified Code(s): J18.9 - Pneumonia, unspecified organism Assessment & Plan: Bilat lower lobes. On rocephin and zithromax day #2. He is feeling much better; had temp to 101.1 on admission - needs to stay at least another day on IV antibiotics then can discharge to home if still doing well. 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
[2022-01-24] MEDS: LUMIGAN 0.01% 2.5 ML OP SCH (20:38)
[2022-01-25] MEDS: NORVASC 5 MG PO SCH (07:48)
[2022-01-25] MEDS: Vitamin B-12 500 MCG PO SCH (07:48)
[2022-01-25] MEDS: Imdur 30 MG PO SCH (07:48)
[2022-01-25] MEDS: LYRICA 150MG PO SCH (07:48)
[2022-01-25] MEDS: Protonix 40MG Tablet PO SCH (07:48)
[2022-01-25] MEDS: ELIQUIS 2.5 MG TABLET PO SCH (07:48)
[2022-01-25] MEDS: FEOSOL 325 MG PO SCH (07:48)
[2022-01-25] MEDS: Flomax 0.4 MG PO SCH (07:48)
[2022-01-25 08:22] VITALS: BP 187/77; PULSE 73; O2SAT 94
[2022-01-25] MEDS: Sodium Chloride 0.9% 1000 ML 1,000 ML IV SCH (08:26)
[2022-01-25 08:53] LABS: Absolute Neutrophil Ct (ANC) 10.37 x10^3/uL (1.4-6.9); Basophil (Absolute #) 0.06 x10^3/uL (0-0.4); Eosinophil % 1.3 % (0.00-5.0); Eosinophil (Absolute #) 0.16 x10^3/uL (0-0.5); Hematocrit 35.6 % (42-50); Hemoglobin 11.5 g/dL (12.5-18.0); Lymphocyte (Absolute #) 1.42 x10^3/uL (1.0-4.6); Lymphocytes % 11.4 % (24.0-44.0); Mean Corpuscular Hemoglobin 29.7 pg (26-32); Mean Corpuscular Hgb Concent. 32.3 g/dL (32-36); Mean Platelet Volume 12.3 fL (7.5-11.0); Monocyte (Absolute #) 0.44 x10^3/uL (0.0-1.3); Monocytes % 3.5 % (0.0-12.0); Neutrophil % 82.8 % (36.0-66.0); Platelet Count 160 x10^3/uL (150-450); Red Blood Count 3.87 x10^6/uL (4.1-5.6); Red Cell Distribution Width 15.1 % (11.5-14.0); White Blood Count 12.5 x10^3/uL (4.0-10.5)
--- NOTE | 2022-01-25 09:13 | PCM.DS ---
Discharge Summary Date of Admission: 01/23/22 12:49 Admitting Physician: CARLOS BRADLEY Primary Care Provider: FLORIDALMA AVILES Allergies Allergies Iodinated Contrast Media [Iodinated Contrast Media - IV Dye] Allergy (Intermediate, Verified 01/23/22 13:03) unknown- hives morphine Allergy (Intermediate, Verified 01/23/22 13:03) confusion and combative hydromorphone HCl [From Dilaudid] Adverse Reaction (Intermediate, Verified 01/23/22 13:03) confusion and combative oxycodone HCl [From OxyContin] Adverse Reaction (Intermediate, Verified 01/23/22 13:03) confusion/ combative Hospital Summary - Hospital Course Hospital Course: Pt is 81 yo diabetic male with chronic renal failure, HTN, and COPD who was admitted through ER with pneumonia. Brought in by family for AMS, which quickly resolved. He was started on zithromax and rocephin and was feeling great by the next day; I advised he should stay another day for tx. Also, his WBC were 16,000 at admission and yesterday; today they are down to 12,000. He will be discharged to home on augmentin. F/u with PCP in 1 week. - Vitals & Intake/Output Vital Signs: Vital Signs Temperature 98.7 F 01/25/22 08:00 Pulse Rate 73 01/25/22 08:00 Respiratory Rate 19 01/25/22 08:00 Blood Pressure 187/77 01/25/22 08:00 O2 Sat by Pulse Oximetry 94 L 01/25/22 08:00 Intake & Output: Intake & Output 01/22/22 01/23/22 01/24/22 01/25/22 11:59 11:59 11:59 11:59 Intake Total 2254 2012 Output Total 1000 1600 Balance 1254 413 Weight 85.003 kg 84.4 kg - Lab Result Diagrams: 01/25/22 08:41 01/24/22 04:30 Lab Results-Last 24 Hrs: Lab Results-Last 24 Hours 01/24/22 01/24/22 01/24/22 Range/Units 11:15 17:13 21:04 WBC (4.0-10.5) x10^3/uL RBC (4.1-5.6) x10^6/uL Hgb (12.5-18.0) g/dL Hct (42-50) % MCV (78-100) fL MCH (26-32) pg MCHC (32-36) g/dL RDW (11.5-14.0) % Plt Count (150-450) x10^3/uL MPV (7.5-11.0) fL Gran % (36.0-66.0) % Immature Gran % (Auto) (0.00-0.4) % Nucleat RBC Rel Count (0.00-0.1) % Eos # (Auto) (0-0.5) x10^3/uL Immature Gran # (Auto) (0.00-0.03) x10^3u/L Absolute Lymphs (auto) (1.0-4.6) x10^3/uL Absolute Monos (auto) (0.0-1.3) x10^3/uL Absolute Nucleated RBC (0.00-0.01) x10^3u/L Lymphocytes % (24.0-44.0) % Monocytes % (0.0-12.0) % Eosinophils % (0.00-5.0) % Basophils % (0.0-0.4) % Absolute Granulocytes (1.4-6.9) x10^3/uL Basophils # (0-0.4) x10^3/uL POC Glucometer 270 H 278 H 293 H (74 to 106) mg/dL 01/25/22 01/25/22 Range/Units 06:43 08:41 WBC 12.5 H (4.0-10.5) x10^3/uL RBC 3.87 L (4.1-5.6) x10^6/uL Hgb 11.5 L (12.5-18.0) g/dL Hct 35.6 L (42-50) % MCV 92.0 (78-100) fL MCH 29.7 (26-32) pg MCHC 32.3 (32-36) g/dL RDW 15.1 H (11.5-14.0) % Plt Count 160 (150-450) x10^3/uL MPV 12.3 H (7.5-11.0) fL Gran % 82.8 H (36.0-66.0) % Immature Gran % (Auto) 0.5 H (0.00-0.4) % Nucleat RBC Rel Count 0.0 (0.00-0.1) % Eos # (Auto) 0.16 (0-0.5) x10^3/uL Immature Gran # (Auto) 0.06 H (0.00-0.03) x10^3u/L Absolute Lymphs (auto) 1.42 (1.0-4.6) x10^3/uL Absolute Monos (auto) 0.44 (0.0-1.3) x10^3/uL Absolute Nucleated RBC 0.00 (0.00-0.01) x10^3u/L Lymphocytes % 11.4 L (24.0-44.0) % Monocytes % 3.5 (0.0-12.0) % Eosinophils % 1.3 (0.00-5.0) % Basophils % 0.5 (0.0-0.4) % Absolute Granulocytes 10.37 H (1.4-6.9) x10^3/uL Basophils # 0.06 (0-0.4) x10^3/uL POC Glucometer 134 H (74 to 106) mg/dL Micro Results-Entire Visit: Microbiology 01/23/22 11:00 Blood Culture - Preliminary Blood NO GROWTH TO DATE 01/23/22 10:55 Blood Culture - Preliminary Blood NO GROWTH TO DATE Accuchecks Date 01/25/22 Date 01/24/22 Time 07:30 Time 11:55 - Radiology Exams Ordered Rad Exams-Entire Visit: Radiology Procedures Category Date Time Status CHEST 2 VIEWS (PA AND LAT) Stat Exams 01/23/22 10:47 Completed - Procedures and Test Procedures and Tests throughout Hospitalization: Therapy Orders & Screens 01/23/22 11:29 Respiratory Therapy Assessment DAILY Comment: 01/23/22 17:43 Respiratory Therapy Assessment DAILY Comment: Diagnosis: Pneumonia Discharge Exam General Appearance: no apparent distress, alert Neurologic Exam: oriented x 3, cooperative Eye Exam: eyes nml inspection Ears, Nose, Throat Exam: moist mucous membranes Neck Exam: normal inspection, supple, No lymphadenopathy, No thyromegaly Respiratory Exam: normal breath sounds, lungs clear, No crackles/rales, No rhonchi, No wheezing Cardiovascular Exam: regular rate/rhythm, normal heart sounds, No murmur Gastrointestinal/Abdomen Exam: soft, normal bowel sounds Back Exam: normal inspection, No rash Extremity Exam: normal inspection, No pedal edema, No swelling Skin Exam: normal color, warm, dry, No rash Final Diagnosis/Problem List - Final Discharge Diagnosis/Problem (1) Community acquired pneumonia Current Visit: Yes Status: Acute Assessment & Plan: Finish 7d total of abx. (Augmentin x 5d) Code(s): J18.9 - PNEUMONIA, UNSPECIFIED ORGANISM (2) Chronic renal failure Current Visit: No Status: Chronic Assessment & Plan: eGFR yesterday 47.1, recheck is pending, would have PCP consider recheck at f/u appt. (3) COPD (chronic obstructive pulmonary disease) Current Visit: No Status: Chronic (4) HTN (hypertension) Current Visit: No Status: Chronic Assessment & Plan: had some elevated bp but will not change his meds as increasing bp meds in the hospitalized elderly often leads to hypotension at home. Code(s): I10 - ESSENTIAL (PRIMARY) HYPERTENSION (5) Type 2 diabetes mellitus Current Visit: No Status: Chronic Assessment & Plan: BS 134-293 in the past 24h; we had halved his lantus initially as we were not sure if he was eating well. (6) Leukocytosis Current Visit: No Status: Acute Assessment & Plan: much improved. Code(s): D72.829 - ELEVATED WHITE BLOOD CELL COUNT, UNSPECIFIED - Discharge Disposition: Home, Self-Care Condition: Good Prescriptions: New Lactobacillus Acidophilus [Acidophilus TABLET] 1 tab PO TID #15 tablet Amox Tr/Potass Clav. 875 mg [Augmentin 875-125 Tablet] 875 mg PO BID #10 tablet Albuterol 8 gm Mdi Hfa [Ventolin Hfa MDI] 8 gm IH QID #1 unit Continue Multivitamin/Iron/Folic Acid [Centrum Complete Multivit Tab] 1 each PO DAILY Bimatoprost 0.01% [Lumigan 0.01% 2.5 ml] 1 drop OP HS Tamsulosin HCl 0.4 mg [Flomax 0.4 MG] 0.4 mg PO DAILY Isosorbide Mononitrate 30 mg [Imdur 30 MG] 30 mg PO DAILY Omeprazole 40 mg PO DAILY Methylphenidate 5 mg [Ritalin 5 MG] 20 mg PO DAILY Metformin HCl [Glucophage Xr] 1,000 mg PO BID Nitroglycerin 0.4 mg Tablet [Nitrostat 0.4 MG Tablet] 0.4 mg SL Q5MIN PRN MR X 3 PRN PRN Reason: Chest Pain Ferrous Sulfate [Iron] 65 mg PO DAILY Apixaban [Eliquis] 5 mg PO BID Amlodipine Besylate 10 mg PO DAILY Hydrocodone/Acetaminophen [Hydrocodone-Acetamin 10-325 mg] 1 each PO Q6H PRN PRN PRN Reason: Pain Cyanocobalamin (Vitamin B-12) [Vitamin B12] 2,500 mcg PO DAILY Insulin Glargine,Hum.rec.anlog [Lantus Solostar] 20 unit SQ DAILY Methylphenidate 5 mg [Ritalin 5 MG] 10 mg PO HS Zinc Gluconate [Zinc] 1 tab PO DAILY Pregabalin [Lyrica 150Mg] 1 tab PO BID Instructions: Pneumonia, Adult (DC) Follow up with: CARLOS BRADLEY [ACTIVE STAFF] -
[2022-01-25 09:16] LABS: ANION GAP 11.4 MEQ/L (5-15); Calcium 9.5 mg/dL (8.4-10.2); Creatinine 1 1.37 mg/dL (0.66-1.25); EST GLOMERULAR FILTRATION RATE 53.1 ML/MIN; Potassium 3.8 mmol/L (3.5-5.1)
[2022-01-25] MEDS ORDERED: Lantus Insulin SQ SCH (10:00)
== END 2022-01-25 11:26 | disposition home or self-care (01) ==
LOC: ED 10:36 → MED SURG 12:49
PROVIDERS: ADMIT Family Medicine; ATTEND Family Medicine
DX: J18.9 Pneumonia, unspecified organism (principal); E11.22 Type 2 diabetes mellitus with diabetic chronic kidney disease; I12.9 Hypertensive chronic kidney disease with stage 1 through stage 4 chronic kidney disease, or unspecified chronic kidney disease; N18.31 Chronic kidney disease, stage 3a; J44.9 Chronic obstructive pulmonary disease, unspecified; D72.829 Elevated white blood cell count, unspecified; R00.0 Tachycardia, unspecified; Z79.01 Long term (current) use of anticoagulants; Z79.899 Other long term (current) drug therapy; Z20.828 Contact with and (suspected) exposure to other viral communicable diseases
CPT/HCPCS: 0241U; 36000; 36415; 71046; 80048; 80053; 81015; 82947; 83605; 84145; 85025; 85610; 87040; 87070; 93005; 93041; 94640; 94760; 96360; 96365; 96368; 96374; 99285; G0378; J0360; J0456; J0696; J1817; J2930; A9270-GY

== ENCOUNTER 2022-03-20 18:01 | Emergency (ER) | payer MEDICARE ==
[2022-03-20] MEDS ORDERED: LOPRESSOR INJECTION IV ONE ×2 (18:13→18:16)
[2022-03-20] MEDS ORDERED: BABY ASPIRIN 81 MG CHEW PO ONE (18:13)
--- NOTE | 2022-03-20 18:14 | ERPHSYRPT ---
- History of Present Illness Time Seen by Provider: 03/20/22 18:13 Source: patient Exam Limitations: no limitations Physician History: This is an 82-year-old white male who has a history of coronary artery disease, cardiac stents and a CABG in 1993 and presents emergency department with weakness and bilateral shoulder pain with associated nausea and vomiting. Patient's spouse states that the shoulder pain seems to be getting worse when the patient describes more weakness and having nausea she brought him into the emergency department. Here in the emergency department appears as though he has a inferior STEMI present on EKG at 1807 on 03/20/2022. Patient is on Eliquis. He has not taken any aspirin or nitroglycerin today. Patient has a history of hypertension, diabetes, asthma and COPD. Timing/Duration: today Severity: moderate Associated Symptoms: shortness of breath, weakness, other (Bilateral shoulder pain) Allergies/Adverse Reactions: Iodinated Contrast Media [Iodinated Contrast Media - IV Dye] Allergy (Intermediate, Verified 03/20/22 18:03) unknown- hives morphine Allergy (Intermediate, Verified 03/20/22 18:03) confusion and combative hydromorphone HCl [From Dilaudid] Adverse Reaction (Intermediate, Verified 03/20/22 18:03) confusion and combative oxycodone HCl [From OxyContin] Adverse Reaction (Intermediate, Verified 03/20/22 18:03) confusion/ combative Home Medications: Bimatoprost 0.01% [Lumigan 0.01% 2.5 ml] 1 drop OP HS 05/04/15 [History] Multivitamin/Iron/Folic Acid [Centrum Complete Multivit Tab] 1 each PO DAILY 05/04/15 [History] Tamsulosin HCl 0.4 mg [Flomax 0.4 MG] 0.4 mg PO DAILY 05/04/15 [History] Isosorbide Mononitrate 30 mg [Imdur 30 MG] 30 mg PO DAILY 08/09/16 [Histor y] Omeprazole 40 mg PO DAILY 08/26/18 [History] Methylphenidate 5 mg [Ritalin 5 MG] 20 mg PO DAILY 12/05/19 [History] Ferrous Sulfate [Iron] 65 mg PO DAILY 12/06/19 [History] Metformin HCl [Glucophage Xr] 1,000 mg PO BID 12/06/19 [History] Nitroglycerin 0.4 mg Tablet [Nitrostat 0.4 MG Tablet] 0.4 mg SL Q5MIN PRN MR X 3 PRN 12/06/19 [History] Apixaban [Eliquis] 5 mg PO BID 03/15/20 [History] Amlodipine Besylate 10 mg PO DAILY 02/01/21 [History] Cyanocobalamin (Vitamin B-12) [Vitamin B12] 2,500 mcg PO DAILY 02/01/21 [History] Hydrocodone/Acetaminophen [Hydrocodone-Acetamin 10-325 mg] 1 each PO Q6H PRN PRN 02/01/21 [History] Insulin Glargine,Hum.rec.anlog [Lantus Solostar] 20 unit SQ DAILY 02/01/21 [History] Methylphenidate 5 mg [Ritalin 5 MG] 10 mg PO HS 09/17/21 [History] Pregabalin [Lyrica 150Mg] 1 tab PO BID 01/23/22 [History] Zinc Gluconate [Zinc] 1 tab PO DAILY 01/23/22 [History] Hx Tetanus, Diphtheria Vaccination/Date Given: No Hx Influenza Vaccination/Date Given: Yes Hx Pneumococcal Vaccination/Date Given: Yes Travel Risk - International Travel Have you traveled outside of the country in past 3 weeks: No - Coronavirus Screening Are you exhibiting any of the following symptoms?: No Close contact with a COVID-19 positive Pt in past 14-21 Days: No - Vaccine Status Have you recieved a Covid-19 vaccination: No - Review of Systems Constitutional: Weakness Eyes: No Symptoms Ears, Nose, & Throat: No Symptoms Respiratory: No Symptoms Cardiac: Palpitations Abdominal/Gastrointestinal: Nausea, Vomiting Genitourinary Symptoms: No Symptoms Musculoskeletal: No Symptoms Skin: No Symptoms Neurological: No Symptoms Psychological: No Symptoms Endocrine: No Symptoms Hematologic/Lymphatic: Easy Bruising Immunological/Allergic: No Symptoms All Other Systems: Reviewed and Negative - Past Medical History Pertinent Past Medical History: Yes Neurological History: No Pertinent History ENT History: Cataracts, Glaucoma Cardiac History: Hypertension, Myocardial Infarction ([place]), Other Respiratory History: Asthma, COPD, Other Endocrine Medical History: Diabetes Type II Musculoskeletal History: Fractures GI Medical History: GERD, Gallbladder Disease History: Other Psycho-Social History: Depression Male Reproductive Disorders: Prostate Problems Other Medical History: COVID-19, L Wrist Fracture (1982), Open Heart Surgery (1993), LE fracture (unable to recall which side, 1959's), Low Back Pain, LB surgery (1994 with rods placed) - Past Surgical History Past Surgical History: Yes Neuro Surgical History: No Pertinent History Cardiac: CABG, Cardiac Catheterization, Cardiac Stent Respiratory: Chest Surgery Gastrointestinal: Appendectomy, Cholecystectomy Genitourinary: No Pertinent History Musculoskeletal: Orthopedic Surgery Male Surgical History: No Pertinent History Other Surgical History: back surgery. fem pop. steriod injection in various joints. carpal tunnel surgery - Social History Smoking Status: Never smoker How long have you smoked: 1975 Exposure to second hand smoke: No Drug Use: none Patient Lives Alone: No - Nursing Vital Signs Nursing Vital Signs: Initial Vital Signs Temperature 101.1 F 03/20/22 18:04 Pulse Rate 126 H 03/20/22 18:04 Respiratory Rate 15 03/20/22 18:04 Blood Pressure 133/76 03/20/22 18:04 O2 Sat by Pulse Oximetry 90 L 03/20/22 18:04 Pain Scale Pain Intensity 5 - Physical Exam General Appearance: mild distress, alert, anxiety Eye Exam: PERRL/EOMI, eyes nml inspection, pale conjunctivae Ears, Nose, Throat Exam: normal ENT inspection, dry mucous membranes Neck Exam: normal inspection, non-tender, supple, full range of motion Respiratory Exam: normal breath sounds, lungs clear, airway intact, No chest tenderness, No respiratory distress Cardiovascular Exam: tachycardia Gastrointestinal/Abdomen Exam: soft, normal bowel sounds, No tenderness Rectal Exam: not done Extremity Exam: normal inspection, normal range of motion, pelvis stable Neurologic Exam: alert, oriented x 3, cooperative, environmental compliance manager II-XII nml as tested, normal mood/affect, nml cerebellar function, nml station & gait, sensation nml Skin Exam: normal color, warm, dry Lymphatic Exam: No adenopathy SpO2 Interpretation: normal O2 Delivery: Room Air - Course Nursing assessment & vital signs reviewed: Yes EKG Interpreted by Me: RATE (124), Sinus Tach, Right Bundle Branch Block, Other (ST elevation in leads II, III, aVF. ? Lateral leads ischemia as well.) Ordered Tests: Active Orders 24 hr Category Date Time Status Psychiatric Nursing Aide STAT Care 03/20/22 18:14 Active EKG-ER Only STAT Care 03/20/22 18:13 Active IV Insertion STAT Care 03/20/22 18:13 Active Pulse Oximetry (ED) STAT Care 03/20/22 18:13 Active CBC W DIFF Stat Lab 03/20/22 18:13 Ordered CMP Stat Lab 03/20/22 18:13 Ordered NT PRO BNP Stat Lab 03/20/22 18:13 Ordered TROPONIN Q4H Lab 03/20/22 18:15 Ordered TROPONIN Q4H Lab 03/20/22 22:15 Ordered TROPONIN Q4H Lab 03/21/22 02:15 Ordered Medication Summary Discontinued Medications Generic Name Dose Route Start Last Admin Trade Name Freq PRN Reason Stop Dose Admin Aspirin 324 mg 03/20/22 18:13 Aspirin 81 Mg Tab.Chew PO 03/20/22 18:14 STAT ONE Aspirin Confirm 03/20/22 18:16 Aspirin 81 Mg Tab.Chew Administered 03/20/22 18:17 Dose 324 mg .ROUTE .STK-MED ONE Sodium Chloride Confirm 03/20/22 18:16 Sodium Chloride 0.9% 1000 Ml Administered 03/20/22 18:17 Dose 1,000 mls @ ud .ROUTE .STK-MED ONE Metoprolol Tartrate 5 mg 03/20/22 18:13 Metoprolol Tartrate 5 Mg/5 Ml Vial IV 03/20/22 18:14 STAT ONE Metoprolol Tartrate Confirm 03/20/22 18:16 Metoprolol Tartrate 5 Mg/5 Ml Vial Administered 03/20/22 18:17 Dose 5 mg IV .STK-MED ONE Ondansetron HCl 4 mg 03/20/22 18:21 Ondansetron Hcl 4 Mg/2 Ml Vial IV 03/20/22 18:22 STAT ONE - Progress Progress: unchanged Progress Note: 03/20/22 18:30 Medical decision making: This patient appears to have a STEMI in the inferior leads and? Acute ischemia in the lateral leads as well on the twelve-lead EKG. 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 [facility] no Pick Pulling Machine Tender available at this time. I then spoke to the [facility] emergency room physician Dr. Ace and I reviewed the patient history with him and the findings on the twelve-lead EKG. He accepts the patient in transfer. He did not want me to add Eliquis or heparin. I did give the patient 5 mg of metoprolol and 4 baby aspirin. Counseled pt/family regarding: diagnosis - Departure Departure Disposition: Transfer Clinical Impression: STEMI (ST elevation myocardial infarction) Condition: Fair Critical Care Time: Yes Critical Care Time(excluding separately billable procedures): Critical 30-74 mins (30 minutes) Referrals: FLORIDALMA AVILES NP [Primary Care Provider] - Follow up/PCP as directed
[2022-03-20] MEDS ORDERED: BABY ASPIRIN 81 MG CHEW ONE (18:16)
[2022-03-20] MEDS ORDERED: Sodium Chloride 0.9% 1000 ML 1,000 ML ONE (18:16)
[2022-03-20] MEDS ORDERED: Zofran 4 MG/2 ML VIAL IV ONE (18:21)
[2022-03-20] MEDS ORDERED: Zofran 4 MG/2 ML VIAL ONE (18:21)
[2022-03-20 18:23] VITALS: BP 133/76; PULSE 126; O2SAT 90
[2022-03-20 18:24] LABS: Absolute Neutrophil Ct (ANC) 13.62 x10^3/uL (1.4-6.9); Basophil (Absolute #) 0.07 x10^3/uL (0-0.4); Eosinophil % 0.4 % (0.00-5.0); Eosinophil (Absolute #) 0.06 x10^3/uL (0-0.5); Hematocrit 37.8 % (42-50); Hemoglobin 11.7 g/dL (12.5-18.0); Lymphocyte (Absolute #) 0.43 x10^3/uL (1.0-4.6); Lymphocytes % 2.9 % (24.0-44.0); Mean Cell Volume 97.7 fL (78-100); Mean Corpuscular Hemoglobin 30.2 pg (26-32); Mean Platelet Volume 12.7 fL (7.5-11.0); Monocyte (Absolute #) 0.51 x10^3/uL (0.0-1.3); Monocytes % 3.5 % (0.0-12.0); Neutrophil % 92.4 % (36.0-66.0); Platelet Count 137 x10^3/uL (150-450); Red Blood Count 3.87 x10^6/uL (4.1-5.6); Red Cell Distribution Width 13.9 % (11.5-14.0); White Blood Count 14.7 x10^3/uL (4.0-10.5)
[2022-03-20] MEDS ORDERED: Sodium Chloride 0.9% 1000 ML 1,000 ML IV SCH (18:30)
[2022-03-20 18:46] LABS: ALBUMIN 4.3 g/dL (3.5-5.0); ANION GAP 11.6 MEQ/L (5-15); Calcium 9.2 mg/dL (8.4-10.2); Creatinine 1 1.54 mg/dL (0.66-1.25); EST GLOMERULAR FILTRATION RATE 46.3 ML/MIN
[2022-03-20 18:51] LABS: Potassium 5.7 mmol/L (3.5-5.1)
[2022-03-20 19:21] LABS: INFLUENZA A NEGATIVE (NEGATIVE); INFLUENZA B NEGATIVE (NEGATIVE); RESPIRATORY SYNCTIAL VIRUS NEGATIVE (Negative); SARS-CoV-2 Xpert Express NEGATIVE (NEGATIVE)
[2022-03-20 23:49] LABS: Slide Review 1 YES
== END 2022-03-20 18:25 | disposition short-term general hospital (02) ==
LOC: ED 18:01
DX: I21.19 ST elevation (STEMI) myocardial infarction involving other coronary artery of inferior wall (principal); R53.1 Weakness; M25.511 Pain in right shoulder; M25.512 Pain in left shoulder; R11.2 Nausea with vomiting, unspecified; I10 Essential (primary) hypertension; E11.9 Type 2 diabetes mellitus without complications; J44.9 Chronic obstructive pulmonary disease, unspecified; Z79.01 Long term (current) use of anticoagulants; Z79.4 Long term (current) use of insulin; Z79.84 Long term (current) use of oral hypoglycemic drugs; Z79.891 Long term (current) use of opiate analgesic; Z79.899 Other long term (current) drug therapy; Z28.310 Unvaccinated for COVID-19; Z86.16 Personal history of COVID-19; Z20.828 Contact with and (suspected) exposure to other viral communicable diseases
CPT/HCPCS: 0241U; 36000; 36415; 80053; 83880; 84484; 85025; 93005; 93041; 94760; 96374; 96375; 99285; 99291; J2405; A9270-GY

== ENCOUNTER 2022-05-16 15:38 | Observation (INO) | payer MEDICARE, SELFPAY ==
[2022-05-16] MEDS ORDERED: TYLENOL 325 MG PO STA (16:12)
--- NOTE | 2022-05-16 16:21 | ERPHSYRPT ---
- History of Present Illness Time Seen by Provider: 05/16/22 15:49 Source: patient, family Exam Limitations: no limitations Patient Subjective Stated Complaint: C/O being "sick". Denies any pain or SOB. Triage Nursing Assessment: Patient brought back to ED in W/C. No SOB noted. He is alert and oriented. Voice slightly hoarse. Runny nose; clear drainage from nares. Skin is hot to touch. Patient chilling; shivering at times stating he is cold. Physician History: 82-year-old with multiple medical problems including coronary artery disease status post CABG, atrial fibrillation on Eliquis, hypertension, hyperlipidemia, diabetes mellitus presented in the ER with flulike symptoms since yesterday. Patient reports not feeling well with sinus congestion, runny nose and low-grade temperature. Denies any cough difficulty breathing, abdominal pain nausea vomiting or diarrhea. No known sick contact. reports patient had similar symptoms in the past and was found septic. Patient is tachycardic on presentation. Timing/Duration: yesterday, gradual onset, worse Cough Quality/Degree: no cough Possible Cause: unknown cause Associated Symptoms: fever, chills, muscle aches, nasal congestion, nasal drainage, sinus infection Allergies/Adverse Reactions: Iodinated Contrast Media [Iodinated Contrast Media - IV Dye] Allergy (Intermediate, Verified 05/16/22 15:48) unknown- hives morphine Allergy (Intermediate, Verified 05/16/22 15:48) confusion and combative hydromorphone HCl [From Dilaudid] Adverse Reaction (Intermediate, Verified 05/16/22 15:48) confusion and combative oxycodone HCl [From OxyContin] Adverse Reaction (Intermediate, Verified 05/16/22 15:48) confusion/ combative Home Medications: Bimatoprost 0.01% [Lumigan 0.01% 2.5 ml] 1 drop OP HS 05/04/15 [History] Multivitamin/Iron/Folic Acid [Centrum Complete Multivit Tab] 1 each PO DAILY 05/04/15 [History] Tamsulosin HCl 0.4 mg [Flomax 0.4 MG] 0.4 mg PO DAILY 05/04/15 [History] Isosorbide Mononitrate 30 mg [Imdur 30 MG] 30 mg PO DAILY 08/09/16 [History] Omeprazole 40 mg PO DAILY 08/26/18 [History] Methylphenidate 5 mg [Ritalin 5 MG] 20 mg PO DAILY 12/05/19 [History] Ferrous Sulfate [Iron] 65 mg PO DAILY 12/06/19 [History] Metformin HCl [Glucophage Xr] 1,000 mg PO BID 12/06/19 [History] Nitroglycerin 0.4 mg Tablet [Nitrostat 0.4 MG Tablet] 0.4 mg SL Q5MIN PRN MR X 3 PRN 12/06/19 [History] Apixaban [Eliquis] 5 mg PO BID 03/15/20 [History] Amlodipine Besylate 10 mg PO DAILY 02/01/21 [History] Cyanocobalamin (Vitamin B-12) [Vitamin B12] 2,500 mcg PO DAILY 02/01/21 [History] Hydrocodone/Acetaminophen [Hydrocodone-Acetamin 10-325 mg] 1 each PO Q6H PRN PRN 02/01/21 [History] Insulin Glargine,Hum.rec.anlog [Lantus Solostar] 20 unit SQ DAILY 02/01/21 [Hi story] Methylphenidate 5 mg [Ritalin 5 MG] 10 mg PO HS 09/17/21 [History] Pregabalin [Lyrica 150Mg] 1 tab PO BID 01/23/22 [History] Zinc Gluconate [Zinc] 1 tab PO DAILY 01/23/22 [History] Hx Tetanus, Diphtheria Vaccination/Date Given: Yes Hx Influenza Vaccination/Date Given: Yes Hx Pneumococcal Vaccination/Date Given: Yes Immunizations Up to Date: Yes Travel Risk - International Travel Have you traveled outside of the country in past 3 weeks: No - Coronavirus Screening Are you exhibiting any of the following symptoms?: Yes Symptoms: Fever, Cough: New Onset, Headaches/Body Aches/Fatigue - Vaccine Status Have you recieved a Covid-19 vaccination: No - Review of Systems Constitutional: Fever, Chills, Fatigue, Weakness Eyes: No Symptoms Ears, Nose, & Throat: Nose Congestion, Nose Discharge, Sinus Drainage, Throat Pain Respiratory: No Symptoms Cardiac: No Symptoms Abdominal/Gastrointestinal: No Symptoms Genitourinary Symptoms: No Symptoms Musculoskeletal: Myalgias Skin: No Symptoms Neurological: No Symptoms Psychological: No Symptoms Endocrine: No Symptoms Hematologic/Lymphatic: No Symptoms Immunological/Allergic: No Symptoms - Past Medical History Pertinent Past Medical History: Yes Neurological History: No Pertinent History ENT History: Cataracts, Glaucoma Cardiac History: Hypertension, Myocardial Infarction ([place]), Other Respiratory History: Asthma, COPD, Other Endocrine Medical History: Diabetes Type II Musculoskeletal History: Fractures GI Medical History: GERD, Gallbladder Disease History: Other Psycho-Social History: Depression Male Reproductive Disorders: Prostate Problems Other Medical History: COVID-19, L Wrist Fracture (1982), Open Heart Surgery (1993), LE fracture (unable to recall which side, ), Low Back Pain, LB surgery (1994 with rods placed) - Past Surgical History Past Surgical History: Yes Neuro Surgical History: No Pertinent History Cardiac: CABG, Cardiac Catheterization, Cardiac Stent Respiratory: Chest Surgery Gastrointestinal: Appendectomy, Cholecystectomy Genitourinary: No Pertinent History Musculoskeletal: Orthopedic Surgery Male Surgical History: No Pertinent History Other Surgical History: back surgery, fem pop, steriod injection in various joints, carpal tunnel surgery - Social History Smoking Status: Former smoker How long have you smoked: 1975 Exposure to second hand smoke: No Drug Use: none Patient Lives Alone: No - Nursing Vital Signs Nursing Vital Signs: Initial Vital Signs Temperature 99.6 F 05/16/22 15:48 Pulse Rate 126 H 05/16/22 15:48 Respiratory Rate 22 05/16/22 15:48 Blood Pressure 197/105 05/16/22 15:48 O2 Sat by Pulse Oximetry 97 05/16/22 15:48 Pain Scale Pain Intensity 0 - Physical Exam General Appearance: no apparent distress, alert Eye Exam: PERRL/EOMI Ears, Nose, Throat Exam: moist mucous membranes, pharyngeal erythema Neck Exam: normal inspection, full range of motion Respiratory Exam: normal breath sounds, lungs clear Cardiovascular Exam: tachycardia, irregular, edema Gastrointestinal/Abdomen Exam: soft, normal bowel sounds, No tenderness Back Exam: normal inspection Extremity Exam: normal inspection, normal range of motion Neurologic Exam: alert, oriented x 3, cooperative Skin Exam: normal color SpO2 Interpretation: normal SpO2: 97 O2 Delivery: Room Air - Course EKG Interpreted by Me: RATE (124), Sinus Tach, Right [place] Deviation, prolonged QT interval, Right Bundle Branch Block, Other (Anterolateral ST depressions) Ordered Tests: Active Orders 24 hr Category Date Time Status IV Insertion STAT Care 05/16/22 16:38 Active CHEST 1 VIEW (PORTABLE) Stat Exams 05/16/22 16:39 Completed BLOOD CULTURE Stat Lab 05/16/22 16:54 Received CBC W DIFF Stat Lab 05/16/22 16:15 Completed CMP Stat Lab 05/16/22 16:15 Completed Lactic Acid Stat Lab 05/16/22 17:15 Completed MAGNESIUM Stat Lab 05/16/22 16:15 Completed NT PRO BNP Stat Lab 05/16/22 16:15 Completed PROCALCITONIN Stat Lab 05/16/22 16:15 Completed TROPONIN Q4H Lab 05/16/22 16:15 Completed TROPONIN Q4H Lab 05/16/22 20:45 Ordered TROPONIN Q4H Lab 05/17/22 00:45 Ordered UA W/RFX CULTURE Stat Lab 05/16/22 16:37 Completed Transfer Order Routine Transfer 05/16/22 Ordered Medication Summary Discontinued Medications Generic Name Dose Route Start Last Admin Trade Name Freq PRN Reason Stop Dose Admin Acetaminophen 975 mg 05/16/22 16:12 05/16/22 16:30 Acetaminophen 325 Mg Tablet PO 05/16/22 16:13 975 mg STAT STA Administration Acetaminophen Confirm 05/16/22 16:30 Acetaminophen 325 Mg Tablet Administered 05/16/22 16:31 Dose 975 mg .ROUTE .STK-MED ONE Dexamethasone Sodium Phosphate 8 mg 05/16/22 18:23 Dexamethasone Sod Phosphate 4 Mg/Ml Ml IV 05/16/22 18:24 STAT ONE Ceftriaxone Sodium/Dextrose 2 g in 50 mls @ 100 mls/hr 05/16/22 18:01 05/16/22 18:49 Rocephin 2 Gm-D5w 50ml Bag IV 05/16/22 18:30 Infused STAT STA Infusion Azithromycin 500 mg in 250 mls @ 250 mls/hr 05/16/22 18:01 05/16/22 18:30 Zithromax 500 Mg/ 250 Ml Nacl Premix IV 05/16/22 19:00 250 ml/hrs STAT STA 250 mls/hr Administration Magnesium Sulfate/Dextrose 100 mls @ 200 mls/hr 05/16/22 18:02 Magnesium 1 Gm / 100 Ml D5w IV 05/16/22 18:31 STAT ONE Ceftriaxone Sodium/Dextrose Confirm 05/16/22 18:09 Rocephin 2 Gm-D5w 50ml Bag Administered 05/16/22 18:10 Dose 2 g in 50 mls @ ud IV .STK-MED ONE Azithromycin Confirm 05/16/22 18:29 Zithromax 500 Mg/ 250 Ml Nacl Premix Administered 05/16/22 18:30 Dose 500 mg in 250 mls @ ud IV .STK-MED ONE Lab/Rad Data: Laboratory Result Diagrams 05/16/22 16:15 05/16/22 16:15 Laboratory Results 05/16/22 05/16/22 05/16/22 Range/Units 17:15 16:37 16:15 WBC (4.0-10.5) x10^3/uL RBC (4.1-5.6) x10^6/uL Hgb (12.5-18.0) g/dL Hct (42-50) % MCV (78-100) fL MCH (26-32) pg MCHC (32-36) g/dL RDW (11.5-14.0) % Plt Count (150-450) x10^3/uL MPV (7.5-11.0) fL Gran % (36.0-66.0) % Immature Gran % (Auto) (0.00-0.4) % Nucleat RBC Rel Count (0.00-0.1) % Eos # (Auto) (0-0.5) x10^3/uL Immature Gran # (Auto) (0.00-0.03) x10^3u/L Absolute Lymphs (auto) (1.0-4.6) x10^3/uL Absolute Monos (auto) (0.0-1.3) x10^3/uL Absolute Nucleated RBC (0.00-0.01) x10^3u/L Lymphocytes % (24.0-44.0) % Monocytes % (0.0-12.0) % Eosinophils % (0.00-5.0) % Basophils % (0.0-0.4) % Absolute Granulocytes (1.4-6.9) x10^3/uL Basophils # (0-0.4) x10^3/uL Sodium (137-145) mmol/L Potassium (3.5-5.1) mmol/L Chloride (98-107) mmol/L Carbon Dioxide (22-30) mmol/L Anion Gap (5-15) MEQ/L BUN (9-20) mg/dL Creatinine (0.66-1.25) mg/dL Estimated GFR ML/MIN Glucose (74-106) mg/dL Lactic Acid 0.7 (0.4-2.0) Calcium (8.4-10.2) mg/dL Magnesium (1.6-2.3) mg/dL Total Bilirubin (0.2-1.3) mg/dL AST (17-59) U/L ALT (0-50) U/L Alkaline Phosphatase (38-126) U/L Troponin I (0.000-0.034) ng/mL NT-Pro-B Natriuret Pep (0-1800) pg/mL Serum Total Protein (6.3-8.2) g/dL Albumin (3.5-5.0) g/dL Procalcitonin 0.094 H (0.030-0.080) ng/mL Urinalys Dipstick Clnc MAIN LAB Urine Color YELLOW (YELLOW) Urine Appearance CLEAR (CLEAR) Urine pH 7.5 (5-6) Ur Specific [place] 1.020 (1.005-1.025) POC Urine Protein Conf >=300 A (Negative) Urine Ketones NEGATIVE (NEGATIVE) Urine Nitrite NEGATIVE (NEGATIVE) Urine Bilirubin NEGATIVE (NEGATIVE) Urine Urobilinogen 0.2 (0-1) mg/dL Urine Leukocytes NEGATIVE (NEGATIVE) Urine WBC (Auto) NONE (0-5) /HPF Urine RBC (Auto) NONE (0-2) /HPF U Epithel Cells (Auto) NONE (FEW) /HPF Urine Bacteria (Auto) NONE (NEGATIVE) /HPF Urine RBC TRACE-INTACT A (0-5) Saw/ul Ur Culture Indicated? NO Urine Glucose 500 A (NEGATIVE) mg/dL Influenza Type A Ag (NEGATIVE) Influenza Type B Ag (NEGATIVE) RSV (PCR) (Negative) SARS-CoV-2 (PCR) (NEGATIVE) Slides for Path Review 05/16/22 05/16/22 05/16/22 Range/Units 16:15 16:15 16:15 WBC 9.4 (4.0-10.5) x10^3/uL RBC 3.78 L (4.1-5.6) x10^6/uL Hgb 11.0 L (12.5-18.0) g/dL Hct 34.8 L (42-50) % MCV 92.1 (78-100) fL MCH 29.1 (26-32) pg MCHC 31.6 L (32-36) g/dL RDW 14.1 H (11.5-14.0) % Plt Count 128 L (150-450) x10^3/uL MPV 13.0 H (7.5-11.0) fL Gran % 81.9 H (36.0-66.0) % Immature Gran % (Auto) 0.3 (0.00-0.4) % Nucleat RBC Rel Count 0.0 (0.00-0.1) % Eos # (Auto) 0.08 (0-0.5) x10^3/uL Immature Gran # (Auto) 0.03 (0.00-0.03) x10^3u/L Absolute Lymphs (auto) 0.85 L (1.0-4.6) x10^3/uL Absolute Monos (auto) 0.68 (0.0-1.3) x10^3/uL Absolute Nucleated RBC 0.00 (0.00-0.01) x10^3u/L Lymphocytes % 9.0 L (24.0-44.0) % Monocytes % 7.2 (0.0-12.0) % Eosinophils % 0.9 (0.00-5.0) % Basophils % 0.7 (0.0-0.4) % Absolute Granulocytes 7.70 H (1.4-6.9) x10^3/uL Basophils # 0.07 (0-0.4) x10^3/uL Sodium 139 (137-145) mmol/L Potassium 4.9 (3.5-5.1) mmol/L Chloride 108 H (98-107) mmol/L Carbon Dioxide 26 (22-30) mmol/L Anion Gap 10.2 (5-15) MEQ/L BUN 24 H (9-20) mg/dL Creatinine 1.80 H (0.66-1.25) mg/dL Estimated GFR 38.7 ML/MIN Glucose 238 H (74-106) mg/dL Lactic Acid (0.4-2.0) Calcium 9.4 (8.4-10.2) mg/dL Magnesium 1.5 L (1.6-2.3) mg/dL Total Bilirubin 0.40 (0.2-1.3) mg/dL AST 27 (17-59) U/L ALT 16 (0-50) U/L Alkaline Phosphatase 69 (38-126) U/L Troponin I 0.016 (0.000-0.034) ng/mL NT-Pro-B Natriuret Pep 925 (0-1800) pg/mL Serum Total Protein 7.9 (6.3-8.2) g/dL Albumin 4.1 (3.5-5.0) g/dL Procalcitonin (0.030-0.080) ng/mL Urinalys Dipstick Clnc Urine Color (YELLOW) Urine Appearance (CLEAR) Urine pH (5-6) Ur Specific [place] (1.005-1.025) POC Urine Protein Conf (Negative) Urine Ketones (NEGATIVE) Urine Nitrite (NEGATIVE) Urine Bilirubin (NEGATIVE) Urine Urobilinogen (0-1) mg/dL Urine Leukocytes (NEGATIVE) Urine WBC (Auto) (0-5) /HPF Urine RBC (Auto) (0-2) /HPF U Epithel Cells (Auto) (FEW) /HPF Urine Bacteria (Auto) (NEGATIVE) /HPF Urine RBC (0-5) Saw/ul Ur Culture Indicated? Urine Glucose (NEGATIVE) mg/dL Influenza Type A Ag (NEGATIVE) Influenza Type B Ag (NEGATIVE) RSV (PCR) (Negative) SARS-CoV-2 (PCR) (NEGATIVE) Slides for Path Review YES 05/16/22 Range/Units 16:05 WBC (4.0-10.5) x10^3/uL RBC (4.1-5.6) x10^6/uL Hgb (12.5-18.0) g/dL Hct (42-50) % MCV (78-100) fL MCH (26-32) pg MCHC (32-36) g/dL RDW (11.5-14.0) % Plt Count (150-450) x10^3/uL MPV (7.5-11.0) fL Gran % (36.0-66.0) % Immature Gran % (Auto) (0.00-0.4) % Nucleat RBC Rel Count (0.00-0.1) % Eos # (Auto) (0-0.5) x10^3/uL Immature Gran # (Auto) (0.00-0.03) x10^3u/L Absolute Lymphs (auto) (1.0-4.6) x10^3/uL Absolute Monos (auto) (0.0-1.3) x10^3/uL Absolute Nucleated RBC (0.00-0.01) x10^3u/L Lymphocytes % (24.0-44.0) % Monocytes % (0.0-12.0) % Eosinophils % (0.00-5.0) % Basophils % (0.0-0.4) % Absolute Granulocytes (1.4-6.9) x10^3/uL Basophils # (0-0.4) x10^3/uL Sodium (137-145) mmol/L Potassium (3.5-5.1) mmol/L Chloride (98-107) mmol/L Carbon Dioxide (22-30) mmol/L Anion Gap (5-15) MEQ/L BUN (9-20) mg/dL Creatinine (0.66-1.25) mg/dL Estimated GFR ML/MIN Glucose (74-106) mg/dL Lactic Acid (0.4-2.0) Calcium (8.4-10.2) mg/dL Magnesium (1.6-2.3) mg/dL Total Bilirubin (0.2-1.3) mg/dL AST (17-59) U/L ALT (0-50) U/L Alkaline Phosphatase (38-126) U/L Troponin I (0.000-0.034) ng/mL NT-Pro-B Natriuret Pep (0-1800) pg/mL Serum Total Protein (6.3-8.2) g/dL Albumin (3.5-5.0) g/dL Procalcitonin (0.030-0.080) ng/mL Urinalys Dipstick Clnc Urine Color (YELLOW) Urine Appearance (CLEAR) Urine pH (5-6) Ur Specific [place] (1.005-1.025) POC Urine Protein Conf (Negative) Urine Ketones (NEGATIVE) Urine Nitrite (NEGATIVE) Urine Bilirubin (NEGATIVE) Urine Urobilinogen (0-1) mg/dL Urine Leukocytes (NEGATIVE) Urine WBC (Auto) (0-5) /HPF Urine RBC (Auto) (0-2) /HPF U Epithel Cells (Auto) (FEW) /HPF Urine Bacteria (Auto) (NEGATIVE) /HPF Urine RBC (0-5) Saw/ul Ur Culture Indicated? Urine Glucose (NEGATIVE) mg/dL Influenza Type A Ag NEGATIVE (NEGATIVE) Influenza Type B Ag NEGATIVE (NEGATIVE) RSV (PCR) NEGATIVE (Negative) SARS-CoV-2 (PCR) POSITIVE A (NEGATIVE) Slides for Path Review - Progress Progress: improved Air Movement: good Progress Note: 05/16/22 18:44 82-year-old is evaluated for flulike symptoms. Given Tylenol as patient has a temperature of 99.6. Work-up showed normal white count, chemistry shows normal troponin and BNP. Has mildly low magnesium for which she is getting replacement. Patient has a positive COVID-19, given a dose of steroid. Chest x-ray reviewed by me revealed infiltrative process, given dose of antibiotics. Discussed with and patient is being admitted. Blood Culture(s) Obtained: Yes Antibiotics given: Yes Discussed with : Leisa Will see patient in: hospital (observation) Counseled pt/family regarding: lab results, diagnosis, rad results - Departure Departure Disposition: Observation Clinical Impression: COVID-19 virus detected, Pneumonia due to COVID-19 virus, Hypomagnesemia Condition: Stable Critical Care Time: No Referrals: [facility] L[facility] [Primary Care Provider] - Follow up/PCP as directed
[2022-05-16] MEDS ORDERED: TYLENOL 325 MG ONE (16:30)
[2022-05-16 16:45] LABS: INFLUENZA A NEGATIVE (NEGATIVE); INFLUENZA B NEGATIVE (NEGATIVE); RESPIRATORY SYNCTIAL VIRUS NEGATIVE (Negative)
[2022-05-16 16:47] LABS: Basophil (Absolute #) 0.07 x10^3/uL (0-0.4); Eosinophil % 0.9 % (0.00-5.0); Eosinophil (Absolute #) 0.08 x10^3/uL (0-0.5); Hematocrit 34.8 % (42-50); Lymphocyte (Absolute #) 0.85 x10^3/uL (1.0-4.6); Mean Cell Volume 92.1 fL (78-100); Mean Corpuscular Hemoglobin 29.1 pg (26-32); Mean Corpuscular Hgb Concent. 31.6 g/dL (32-36); Monocyte (Absolute #) 0.68 x10^3/uL (0.0-1.3); Monocytes % 7.2 % (0.0-12.0); Neutrophil % 81.9 % (36.0-66.0); Platelet Count 128 x10^3/uL (150-450); Red Blood Count 3.78 x10^6/uL (4.1-5.6); Red Cell Distribution Width 14.1 % (11.5-14.0); White Blood Count 9.4 x10^3/uL (4.0-10.5)
[2022-05-16 16:54] LABS: SARS-CoV-2 Xpert Express POSITIVE (NEGATIVE)
[2022-05-16 17:05] LABS: ALBUMIN 4.1 g/dL (3.5-5.0); ANION GAP 10.2 MEQ/L (5-15); BILIRUBIN,TOTAL 0.4 mg/dL (0.2-1.3); Calcium 9.4 mg/dL (8.4-10.2); Creatinine 1 1.8 mg/dL (0.66-1.25); EST GLOMERULAR FILTRATION RATE 38.7 ML/MIN; MAGNESIUM 1.5 mg/dL (1.6-2.3); Potassium 4.9 mmol/L (3.5-5.1); Total Protein 7.9 g/dL (6.3-8.2)
[2022-05-16 17:21] LABS: Appearance CLEAR (CLEAR); Bilirubin NEGATIVE (NEGATIVE); Dipstick done @ ? MAIN LAB; Glucose 500 mg/dL (NEGATIVE); Ketones NEGATIVE (NEGATIVE); Nitrite NEGATIVE (NEGATIVE); Ph 7.5 (5-6); Protein,Urine Dip >=300 (Negative); RBC TRACE-INTACT Ery/ul (0-5); Urobilinogen 0.2 mg/dL (0-1)
[2022-05-16 17:22] LABS: Urine Cultured Indicated? NO
[2022-05-16] MEDS ORDERED: ROCEPHIN 2 Gm-D5w 50ML BAG** 2 G/50 ML IVPB IV STA (18:01)
[2022-05-16] MEDS ORDERED: Zithromax 500 MG/ 250 ML NaCl Premix 500 MG/250 ML IVPB IV STA (18:01)
[2022-05-16] MEDS ORDERED: Magnesium 1 Gm / 100 Ml D5W*** 100 ML IV ONE ×2 (18:02→19:36)
--- NOTE | 2022-05-16 18:05 | XRAY ---
Indication: Fever and cough. Comparison: May 03, 2022 Portable chest less inflated crowding the lung bases. Again minimal left base subsegmental atelectasis/scarring and incidental scattered tiny calcified granulomas. Heart not enlarged again with CABG. No new/acute findings.
[2022-05-16] MEDS ORDERED: ROCEPHIN 2 Gm-D5w 50ML BAG** 2 G/50 ML IVPB IV ONE (18:09)
[2022-05-16 18:17] LABS: Slide Review 1 YES
[2022-05-16] MEDS ORDERED: Decadron 4 MG INJ IV ONE (18:23)
[2022-05-16] MEDS ORDERED: Zithromax 500 MG/ 250 ML NaCl Premix 500 MG/250 ML IVPB IV ONE (18:29)
[2022-05-16] MEDS ORDERED: Decadron 4 MG INJ ONE (19:13)
[2022-05-16] MEDS ORDERED: Zofran 4 MG/2 ML VIAL IV PRN (20:15)
[2022-05-16] MEDS ORDERED: Sodium Chloride 0.9% W/ 20 mEq KCl/LITER 1,000 ML IV SCH (20:15)
[2022-05-16] MEDS ORDERED: TYLENOL 325 MG PO PRN (20:15)
[2022-05-16] MEDS ORDERED: DUONEB 0.5-3 MG/3 ml Neb IH SCH (20:15)
[2022-05-16] MEDS: Sodium Chloride 0.9% 1000 ML 1,000 ML IV SCH (21:13)
[2022-05-16] MEDS ORDERED: VENTOLIN COMMON CANISTER IH PRN (22:44)
[2022-05-16] MEDS ORDERED: ELIQUIS 2.5 MG TABLET PO ONE (23:08)
[2022-05-16] MEDS ORDERED: LYRICA 150MG PO ONE (23:11)
[2022-05-16] MEDS ORDERED: Lopressor 25MG Tab PO ONE (23:12)
[2022-05-17] MEDS ORDERED: DUONEB 0.5-3 MG/3 ml Neb IH SCH (01:00)
[2022-05-17 02:24] LABS: Absolute Neutrophil Ct (ANC) 8.15 x10^3/uL (1.4-6.9); Basophil (Absolute #) 0.04 x10^3/uL (0-0.4); Eosinophil (Absolute #) 0 x10^3/uL (0-0.5); Hematocrit 36.1 % (42-50); Hemoglobin 11.6 g/dL (12.5-18.0); Lymphocyte (Absolute #) 0.56 x10^3/uL (1.0-4.6); Lymphocytes % 6.3 % (24.0-44.0); Mean Cell Volume 91.4 fL (78-100); Mean Corpuscular Hemoglobin 29.4 pg (26-32); Mean Corpuscular Hgb Concent. 32.1 g/dL (32-36); Mean Platelet Volume 12.5 fL (7.5-11.0); Monocyte (Absolute #) 0.16 x10^3/uL (0.0-1.3); Monocytes % 1.8 % (0.0-12.0); Neutrophil % 90.9 % (36.0-66.0); Platelet Count 124 x10^3/uL (150-450); Red Blood Count 3.95 x10^6/uL (4.1-5.6); Red Cell Distribution Width 14.2 % (11.5-14.0)
[2022-05-17 02:37] LABS: ALBUMIN 3.8 g/dL (3.5-5.0); ANION GAP 12.4 MEQ/L (5-15); BILIRUBIN,TOTAL 0.4 mg/dL (0.2-1.3); Calcium 9.2 mg/dL (8.4-10.2); Creatinine 1 1.68 mg/dL (0.66-1.25); EST GLOMERULAR FILTRATION RATE 41.9 ML/MIN; MAGNESIUM 1.7 mg/dL (1.6-2.3); Potassium 4.8 mmol/L (3.5-5.1); Total Protein 7.4 g/dL (6.3-8.2)
[2022-05-17 04:03] LABS: Slide Review 1 YES
[2022-05-17] MEDS: Sodium Chloride 0.9% 1000 ML 1,000 ML IV SCH (06:32)
[2022-05-17] MEDS: HUMALOG SQ PRN ×2 (06:57→08:57)
[2022-05-17 08:12] VITALS: O2SAT 96
[2022-05-17] MEDS ORDERED: PROTONIX 40 MG IV IV SCH (10:00)
[2022-05-17] MEDS ORDERED: LYRICA 150MG PO SCH (10:00)
[2022-05-17] MEDS ORDERED: ELIQUIS 2.5 MG TABLET PO SCH ×2 (10:00)
[2022-05-17] MEDS ORDERED: Lopressor 25MG Tab PO SCH (10:00)
[2022-05-17 11:58] VITALS: BP 147/55; PULSE 57
[2022-05-17] MEDS ORDERED: HYDROCODONE-ACETAMIN 10-325 MG PO PRN (12:21)
[2022-05-17] MEDS ORDERED: THERAGRAN MULTIVITAMIN PO SCH (13:00)
[2022-05-17] MEDS ORDERED: Imdur 30 MG PO SCH (13:00)
[2022-05-17] MEDS ORDERED: Zinc Gluconate 50 MG PO SCH (13:00)
[2022-05-17] MEDS ORDERED: Lantus Insulin SQ SCH (13:00)
[2022-05-17] MEDS ORDERED: FEOSOL 325 MG PO SCH (13:00)
[2022-05-17] MEDS ORDERED: hydroDIURIL 25 MG PO SCH (13:00)
[2022-05-17] MEDS ORDERED: Vitamin B-12 500 MCG PO SCH (13:00)
[2022-05-17] MEDS ORDERED: NORVASC 5 MG PO SCH (13:00)
[2022-05-17] MEDS ORDERED: Flomax 0.4 MG PO SCH (13:00)
--- NOTE | 2022-05-17 14:16 | PCM.SSS ---
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 Patient reports not feeling well with sinus congestion, runny nose and low-grade temperature. Denies any cough difficulty b reathing, abdominal pain nausea vomiting or diarrhea. No known sick contact. reports patient had similar symptoms in the past and was found septic. Patient is tachycardic on presentation. Timing/Duration: yesterday, gradual onset, worse Cough Quality/Degree: no cough Possible Cause: unknown cause Associated Symptoms: fever, chills, muscle aches, nasal congestion, nasal drainage, sinus infection - Review of Systems Constitutional: Fever, Chills, Lethargy, Malaise, Weakness Eyes: No Symptoms Ears, Nose, & Throat: No Symptoms Respiratory: No Cough, No Short Of Breath Cardiac: No Chest Pain, No Edema, No Syncope Abdominal/Gastrointestinal: No Abdominal Pain, No Nausea, No Vomiting, No Diarrhea Genitourinary Symptoms: No Dysuria Musculoskeletal: No Back Pain, No Neck Pain Skin: No Rash Neurological: No Dizziness, No Focal Weakness, No Sensory Changes Psychological: No Symptoms Endocrine: No Symptoms Hematologic/Lymphatic: No Symptoms Immunological/Allergic: No Symptoms Medications & Allergies Home Medications: Home Medication List Amlodipine Besylate 5 mg [Norvasc 5 mg] 10 mg PO DAILY 05/16/22 [History Confirmed 05/16/22] Apixaban [Eliquis 5 mg Tablet] 5 mg PO BID 05/16/22 [History Confirmed 05/16/22] Bimatoprost 0.01% [Lumigan 0.01% 2.5 ml] 1 drop OP HS 05/16/22 [History Confirmed 05/16/22] Cyanocobalamin 500 Mcg [Vitamin B-12 500 MCG] 1,000 mcg PO DAILY 05/16/22 [History Confirmed 05/16/22] Hydrochlorothiazide 25 mg [hydroDIURIL 25 MG] 25 mg PO DAILY 05/16/22 [History Confirmed 05/16/22] Hydrocodone/Acetaminophen [Hydrocodone-Acetamin 10-325 mg] 1 tab PO Q6HPRN PRN 05/16/22 [History Confirmed 05/16/22] Insulin Glargine [Lantus Insulin] 20 unit SQ DAILY 05/16/22 [History Confirmed 05/16/22] Iron 65 mg PO DAILY 05/16/22 [History Confirmed 05/16/22] Isosorbide Mononitrate 30 mg [Imdur 30 MG] 30 mg PO DAILY 05/16/22 [History Confirmed 05/16/22] Metformin HCl 500 mg [Glucophage 500 MG] 1,000 mg PO BID 05/16/22 [History Confirmed 05/16/22] Methylphenidate 5 mg [Ritalin 5 MG] 10 mg PO 1200 05/16/22 [History Confirmed 05/16/22] Methylphenidate 5 mg [Ritalin 5 MG] 20 mg PO 0600 05/16/22 [History Confir med 05/16/22] Metoprolol Tartrate 25 mg [Lopressor 25MG Tab] 25 mg PO BID 05/16/22 [History Confirmed 05/16/22] Multivitamin [Multivitamins] 1 tab PO DAILY 05/16/22 [History Confirmed 05/16/22] Omeprazole 40 mg PO DAILY 05/16/22 [History Confirmed 05/16/22] Pregabalin 50 mg [Lyrica 50MG] 150 mg PO BID 05/16/22 [History Confirmed 05/16/22] Tamsulosin HCl 0.4 mg [Flomax 0.4 MG] 0.4 mg PO DAILY 05/16/22 [History Confirmed 05/16/22] Zinc Gluconate [Zinc] 50 mg PO DAILY 05/16/22 [History Confirmed 05/16/22] Nirmatrelvir/Ritonavir [Paxlovid 150-100 mg Pack (Eua)] See Rx Instructions .ROUTE .COMPLEX 5 Days tablet 05/17/22 [Rx] Allergies/Adverse Reactions: Allergies Allergy/AdvReac Type Severity Reaction Status Date / Time Iodinated Contrast Media Allergy Intermediate unknown- Verified 05/16/22 15:48 [Iodinated Contrast Media - hives IV Dye] morphine Allergy Intermediate confusion Verified 05/16/22 15:48 and combative hydromorphone HCl AdvReac Intermediate confusion Verified 05/16/22 15:48 [From Dilaudid] and combative oxycodone HCl AdvReac Intermediate confusion/ Verified 05/16/22 15:48 [From OxyContin] combative - Past Medical History Past Medical History: Yes Neurological History: No Pertinent History ENT History: Cataracts, Glaucoma Cardiac History: Hypertension, Myocardial Infarction ([place]), Other Respiratory History: Asthma, COPD, Other Endocrine Medical History: Diabetes Type II Musculoskelatal History: Fractures GI Medical History: GERD, Gallbladder Disease History: Other Pyscho-Social History: Depression Male Reproductive Disorders: Prostate Problems Comment: COVID-19, L Wrist Fracture (1982), Open Heart Surgery (1993), LE fracture (unable to recall which side, 1959's), Low Back Pain, LB surgery (1994 with rods placed) - Past Surgical History Past Surgical History: Yes Neuro Surgical History: No Pertinent History Cardiac History: CABG, Cardiac Catheterization, Cardiac Stent Respiratory Surgery: Chest Surgery GI Surgical History: Appendectomy, Cholecystectomy Genitourinary Surgical Hx: No Pertinent History Musculskeletal Surgical Hx: Orthopedic Surgery Male Surgical History: No Pertinent History Other Surgical History: back surgery, fem pop, steriod injection in various joints, carpal tunnel surgery - Social History Smoking Status: Never smoker How long have you smoked: 1975 Exposure to second hand smoke: No Alcohol: None Drug Use: none - Physical Exam Vital Signs: Vital Signs - 24 hr Temp Pulse Resp BP Pulse Ox 05/17/22 12:00 18 05/17/22 11:57 98.0 F 57 L 16 147/55 96 05/17/22 10:00 18 05/17/22 08:00 98.1 F 79 19 138/53 96 05/17/22 07:21 79 16 97 05/17/22 05:46 22 05/17/22 04:00 22 05/17/22 03:48 98.7 F 88 22 137/58 94 L 05/17/22 02:00 22 05/17/22 00:00 20 05/16/22 23:19 100.1 F 91 H 20 145/68 95 05/16/22 22:45 80 18 93 L 05/16/22 22:00 20 05/16/22 21:12 100.5 F 93 H 22 161/70 95 05/16/22 19:06 97 05/16/22 18:39 98 H 20 150/81 97 05/16/22 17:39 113 H 24 177/78 92 L 05/16/22 16:39 112 H 23 170/94 94 L 05/16/22 15:48 99.6 F 126 H 22 197/105 97 General Appearance: no apparent distress, alert Neurologic Exam: alert, oriented x 3, cooperative, normal mood/affect, nml cerebellar function, nml station & gait, sensation nml, No motor deficits Eye Exam: PERRL/EOMI, eyes nml inspection Ears, Nose, Throat Exam: normal ENT inspection, TMs normal, pharynx normal, moist mucous membranes Neck Exam: normal inspection, non-tender, supple, full range of motion Respiratory Exam: normal breath sounds, lungs clear, No respiratory distress Cardiovascular Exam: regular rate/rhythm, normal heart sounds, normal peripheral pulses Gastrointestinal/Abdomen Exam: soft, normal bowel sounds, No tenderness, No mass Back Exam: normal inspection, normal range of motion, No CVA tenderness, No vertebral tenderness Extremity Exam: normal inspection, normal range of motion, pelvis stable Skin Exam: normal color, warm, dry, No rash Lymphatic Exam: No adenopathy Results - Labs Lab/Micro Results: Lab Results-Last 24 Hours 05/16/22 05/16/22 05/16/22 Range/Units 16:05 16:15 16:15 WBC 9.4 (4.0-10.5) x10^3/uL RBC 3.78 L (4.1-5.6) x10^6/uL Hgb 11.0 L (12.5-18.0) g/dL Hct 34.8 L (42-50) % MCV 92.1 (78-100) fL MCH 29.1 (26-32) pg MCHC 31.6 L (32-36) g/dL RDW 14.1 H (11.5-14.0) % Plt Count 128 L (150-450) x10^3/uL MPV 13.0 H (7.5-11.0) fL Gran % 81.9 H (36.0-66.0) % Immature Gran % (Auto) 0.3 (0.00-0.4) % Nucleat RBC Rel Count 0.0 (0.00-0.1) % Eos # (Auto) 0.08 (0-0.5) x10^3/uL Immature Gran # (Auto) 0.03 (0.00-0.03) x10^3u/L Absolute Lymphs (auto) 0.85 L (1.0-4.6) x10^3/uL Absolute Monos (auto) 0.68 (0.0-1.3) x10^3/uL Absolute Nucleated RBC 0.00 (0.00-0.01) x10^3u/L Lymphocytes % 9.0 L (24.0-44.0) % Monocytes % 7.2 (0.0-12.0) % Eosinophils % 0.9 (0.00-5.0) % Basophils % 0.7 (0.0-0.4) % Absolute Granulocytes 7.70 H (1.4-6.9) x10^3/uL Basophils # 0.07 (0-0.4) x10^3/uL Sodium 139 (137-145) mmol/L Potassium 4.9 (3.5-5.1) mmol/L Chloride 108 H (98-107) mmol/L Carbon Dioxide 26 (22-30) mmol/L Anion Gap 10.2 (5-15) MEQ/L BUN 24 H (9-20) mg/dL Creatinine 1.80 H (0.66-1.25) mg/dL Estimated GFR 38.7 ML/MIN Glucose 238 H (74-106) mg/dL POC Glucometer (74 to 106) mg/dL Lactic Acid (0.4-2.0) Calcium 9.4 (8.4-10.2) mg/dL Magnesium 1.5 L (1.6-2.3) mg/dL Total Bilirubin 0.40 (0.2-1.3) mg/dL AST 27 (17-59) U/L ALT 16 (0-50) U/L Alkaline Phosphatase 69 (38-126) U/L Troponin I (0.000-0.034) ng/mL NT-Pro-B Natriuret Pep 925 (0-1800) pg/mL Serum Total Protein 7.9 (6.3-8.2) g/dL Albumin 4.1 (3.5-5.0) g/dL Procalcitonin (0.030-0.080) ng/mL Urinalys Dipstick Clnc Urine Color (YELLOW) Urine Appearance (CLEAR) Urine pH (5-6) Ur Specific Brooks (1.005-1.025) POC Urine Protein Conf (Negative) Urine Ketones (NEGATIVE) Urine Nitrite (NEGATIVE) Urine Bilirubin (NEGATIVE) Urine Urobilinogen (0-1) mg/dL Urine Leukocytes (NEGATIVE) Urine WBC (Auto) (0-5) /HPF Urine RBC (Auto) (0-2) /HPF U Epithel Cells (Auto) (FEW) /HPF Urine Bacteria (Auto) (NEGATIVE) /HPF Urine RBC (0-5) Saw/ul Ur Culture Indicated? Urine Glucose (NEGATIVE) mg/dL Influenza Type A Ag NEGATIVE (NEGATIVE) Influenza Type B Ag NEGATIVE (NEGATIVE) RSV (PCR) NEGATIVE (Negative) SARS-CoV-2 (PCR) POSITIVE A (NEGATIVE) Slides for Path Review YES 05/16/22 05/16/22 05/16/22 Range/Units 16:15 16:15 16:37 WBC (4.0-10.5) x10^3/uL RBC (4.1-5.6) x10^6/uL Hgb (12.5-18.0) g/dL Hct (42-50) % MCV (78-100) fL MCH (26-32) pg MCHC (32-36) g/dL RDW (11.5-14.0) % Plt Count (150-450) x10^3/uL MPV (7.5-11.0) fL Gran % (36.0-66.0) % Immature Gran % (Auto) (0.00-0.4) % Nucleat RBC Rel Count (0.00-0.1) % Eos # (Auto) (0-0.5) x10^3/uL Immature Gran # (Auto) (0.00-0.03) x10^3u/L Absolute Lymphs (auto) (1.0-4.6) x10^3/uL Absolute Monos (auto) (0.0-1.3) x10^3/uL Absolute Nucleated RBC (0.00-0.01) x10^3u/L Lymphocytes % (24.0-44.0) % Monocytes % (0.0-12.0) % Eosinophils % (0.00-5.0) % Basophils % (0.0-0.4) % Absolute Granulocytes (1.4-6.9) x10^3/uL Basophils # (0-0.4) x10^3/uL Sodium (137-145) mmol/L Potassium (3.5-5.1) mmol/L Chloride (98-107) mmol/L Carbon Dioxide (22-30) mmol/L Anion Gap (5-15) MEQ/L BUN (9-20) mg/dL Creatinine (0.66-1.25) mg/dL Estimated GFR ML/MIN Glucose (74-106) mg/dL POC Glucometer (74 to 106) mg/dL Lactic Acid (0.4-2.0) Calcium (8.4-10.2) mg/dL Magnesium (1.6-2.3) mg/dL Total Bilirubin (0.2-1.3) mg/dL AST (17-59) U/L ALT (0-50) U/L Alkaline Phosphatase (38-126) U/L Troponin I 0.016 (0.000-0.034) ng/mL NT-Pro-B Natriuret Pep (0-1800) pg/mL Serum Total Protein (6.3-8.2) g/dL Albumin (3.5-5.0) g/dL Procalcitonin 0.094 H (0.030-0.080) ng/mL Urinalys Dipstick Clnc MAIN LAB Urine Color YELLOW (YELLOW) Urine Appearance CLEAR (CLEAR) Urine pH 7.5 (5-6) Ur Specific Brooks 1.020 (1.005-1.025) POC Urine Protein Conf >=300 A (Negative) Urine Ketones NEGATIVE (NEGATIVE) Urine Nitrite NEGATIVE (NEGATIVE) Urine Bilirubin NEGATIVE (NEGATIVE) Urine Urobilinogen 0.2 (0-1) mg/dL Urine Leukocytes NEGATIVE (NEGATIVE) Urine WBC (Auto) NONE (0-5) /HPF Urine RBC (Auto) NONE (0-2) /HPF U Epithel Cells (Auto) NONE (FEW) /HPF Urine Bacteria (Auto) NONE (NEGATIVE) /HPF Urine RBC TRACE-INTACT A (0-5) Saw/ul Ur Culture Indicated? NO Urine Glucose 500 A (NEGATIVE) mg/dL Influenza Type A Ag (NEGATIVE) Influenza Type B Ag (NEGATIVE) RSV (PCR) (Negative) SARS-CoV-2 (PCR) (NEGATIVE) Slides for Path Review 05/16/22 05/16/22 05/16/22 Range/Units 17:15 21:08 21:22 WBC (4.0-10.5) x10^3/uL RBC (4.1-5.6) x10^6/uL Hgb (12.5-18.0) g/dL Hct (42-50) % MCV (78-100) fL MCH (26-32) pg MCHC (32-36) g/dL RDW (11.5-14.0) % Plt Count (150-450) x10^3/uL MPV (7.5-11.0) fL Gran % (36.0-66.0) % Immature Gran % (Auto) (0.00-0.4) % Nucleat RBC Rel Count (0.00-0.1) % Eos # (Auto) (0-0.5) x10^3/uL Immature Gran # (Auto) (0.00-0.03) x10^3u/L Absolute Lymphs (auto) (1.0-4.6) x10^3/uL Absolute Monos (auto) (0.0-1.3) x10^3/uL Absolute Nucleated RBC (0.00-0.01) x10^3u/L Lymphocytes % (24.0-44.0) % Monocytes % (0.0-12.0) % Eosinophils % (0.00-5.0) % Basophils % (0.0-0.4) % Absolute Granulocytes (1.4-6.9) x10^3/uL Basophils # (0-0.4) x10^3/uL Sodium (137-145) mmol/L Potassium (3.5-5.1) mmol/L Chloride (98-107) mmol/L Carbon Dioxide (22-30) mmol/L Anion Gap (5-15) MEQ/L BUN (9-20) mg/dL Creatinine (0.66-1.25) mg/dL Estimated GFR ML/MIN Glucose (74-106) mg/dL POC Glucometer 159 H (74 to 106) mg/dL Lactic Acid 0.7 (0.4-2.0) Calcium (8.4-10.2) mg/dL Magnesium (1.6-2.3) mg/dL Total Bilirubin (0.2-1.3) mg/dL AST (17-59) U/L ALT (0-50) U/L Alkaline Phosphatase (38-126) U/L Troponin I 0.024 (0.000-0.034) ng/mL NT-Pro-B Natriuret Pep (0-1800) pg/mL Serum Total Protein (6.3-8.2) g/dL Albumin (3.5-5.0) g/dL Procalcitonin (0.030-0.080) ng/mL Urinalys Dipstick Clnc Urine Color (YELLOW) Urine Appearance (CLEAR) Urine pH (5-6) Ur Specific Brooks (1.005-1.025) POC Urine Protein Conf (Negative) Urine Ketones (NEGATIVE) Urine Nitrite (NEGATIVE) Urine Bilirubin (NEGATIVE) Urine Urobilinogen (0-1) mg/dL Urine Leukocytes (NEGATIVE) Urine WBC (Auto) (0-5) /HPF Urine RBC (Auto) (0-2) /HPF U Epithel Cells (Auto) (FEW) /HPF Urine Bacteria (Auto) (NEGATIVE) /HPF Urine RBC (0-5) Saw/ul Ur Culture Indicated? Urine Glucose (NEGATIVE) mg/dL Influenza Type A Ag (NEGATIVE) Influenza Type B Ag (NEGATIVE) RSV (PCR) (Negative) SARS-CoV-2 (PCR) (NEGATIVE) Slides for Path Review 05/17/22 05/17/22 05/17/22 Range/Units 02:15 02:15 02:15 WBC 9.0 (4.0-10.5) x10^3/uL RBC 3.95 L (4.1-5.6) x10^6/uL Hgb 11.6 L (12.5-18.0) g/dL Hct 36.1 L (42-50) % MCV 91.4 (78-100) fL MCH 29.4 (26-32) pg MCHC 32.1 (32-36) g/dL RDW 14.2 H (11.5-14.0) % Plt Count 124 L (150-450) x10^3/uL MPV 12.5 H (7.5-11.0) fL Gran % 90.9 H (36.0-66.0) % Immature Gran % (Auto) 0.6 H (0.00-0.4) % Nucleat RBC Rel Count 0.0 (0.00-0.1) % Eos # (Auto) 0 (0-0.5) x10^3/uL Immature Gran # (Auto) 0.05 H (0.00-0.03) x10^3u/L Absolute Lymphs (auto) 0.56 L (1.0-4.6) x10^3/uL Absolute Monos (auto) 0.16 (0.0-1.3) x10^3/uL Absolute Nucleated RBC 0.00 (0.00-0.01) x10^3u/L Lymphocytes % 6.3 L (24.0-44.0) % Monocytes % 1.8 (0.0-12.0) % Eosinophils % 0.0 (0.00-5.0) % Basophils % 0.4 (0.0-0.4) % Absolute Granulocytes 8.15 H (1.4-6.9) x10^3/uL Basophils # 0.04 (0-0.4) x10^3/uL Sodium 138 (137-145) mmol/L Potassium 4.8 (3.5-5.1) mmol/L Chloride 109 H (98-107) mmol/L Carbon Dioxide 22 (22-30) mmol/L Anion Gap 12.4 (5-15) MEQ/L BUN 23 H (9-20) mg/dL Creatinine 1.68 H (0.66-1.25) mg/dL Estimated GFR 41.9 ML/MIN Glucose 332 H (74-106) mg/dL POC Glucometer (74 to 106) mg/dL Lactic Acid (0.4-2.0) Calcium 9.2 (8.4-10.2) mg/dL Magnesium 1.7 (1.6-2.3) mg/dL Total Bilirubin 0.40 (0.2-1.3) mg/dL AST 24 (17-59) U/L ALT 15 (0-50) U/L Alkaline Phosphatase 62 (38-126) U/L Troponin I 0.021 (0.000-0.034) ng/mL NT-Pro-B Natriuret Pep (0-1800) pg/mL Serum Total Protein 7.4 (6.3-8.2) g/dL Albumin 3.8 (3.5-5.0) g/dL Procalcitonin (0.030-0.080) ng/mL Urinalys Dipstick Clnc Urine Color (YELLOW) Urine Appearance (CLEAR) Urine pH (5-6) Ur Specific Brooks (1.005-1.025) POC Urine Protein Conf (Negative) Urine Ketones (NEGATIVE) Urine Nitrite (NEGATIVE) Urine Bilirubin (NEGATIVE) Urine Urobilinogen (0-1) mg/dL Urine Leukocytes (NEGATIVE) Urine WBC (Auto) (0-5) /HPF Urine RBC (Auto) (0-2) /HPF U Epithel Cells (Auto) (FEW) /HPF Urine Bacteria (Auto) (NEGATIVE) /HPF Urine RBC (0-5) Saw/ul Ur Culture Indicated? Urine Glucose (NEGATIVE) mg/dL Influenza Type A Ag (NEGATIVE) Influenza Type B Ag (NEGATIVE) RSV (PCR) (Negative) SARS-CoV-2 (PCR) (NEGATIVE) Slides for Path Review YES 05/17/22 05/17/22 Range/Units 07:46 11:50 WBC (4.0-10.5) x10^3/uL RBC (4.1-5.6) x10^6/uL Hgb (12.5-18.0) g/dL Hct (42-50) % MCV (78-100) fL MCH (26-32) pg MCHC (32-36) g/dL RDW (11.5-14.0) % Plt Count (150-450) x10^3/uL MPV (7.5-11.0) fL Gran % (36.0-66.0) % Immature Gran % (Auto) (0.00-0.4) % Nucleat RBC Rel Count (0.00-0.1) % Eos # (Auto) (0-0.5) x10^3/uL Immature Gran # (Auto) (0.00-0.03) x10^3u/L Absolute Lymphs (auto) (1.0-4.6) x10^3/uL Absolute Monos (auto) (0.0-1.3) x10^3/uL Absolute Nucleated RBC (0.00-0.01) x10^3u/L Lymphocytes % (24.0-44.0) % Monocytes % (0.0-12.0) % Eosinophils % (0.00-5.0) % Basophils % (0.0-0.4) % Absolute Granulocytes (1.4-6.9) x10^3/uL Basophils # (0-0.4) x10^3/uL Sodium (137-145) mmol/L Potassium (3.5-5.1) mmol/L Chloride (98-107) mmol/L Carbon Dioxide (22-30) mmol/L Anion Gap (5-15) MEQ/L BUN (9-20) mg/dL Creatinine (0.66-1.25) mg/dL Estimated GFR ML/MIN Glucose (74-106) mg/dL POC Glucometer 236 H 211 H (74 to 106) mg/dL Lactic Acid (0.4-2.0) Calcium (8.4-10.2) mg/dL Magnesium (1.6-2.3) mg/dL Total Bilirubin (0.2-1.3) mg/dL AST (17-59) U/L ALT (0-50) U/L Alkaline Phosphatase (38-126) U/L Troponin I (0.000-0.034) ng/mL NT-Pro-B Natriuret Pep (0-1800) pg/mL Serum Total Protein (6.3-8.2) g/dL Albumin (3.5-5.0) g/dL Procalcitonin (0.030-0.080) ng/mL Urinalys Dipstick Clnc Urine Color (YELLOW) Urine Appearance (CLEAR) Urine pH (5-6) Ur Specific Brooks (1.005-1.025) POC Urine Protein Conf (Negative) Urine Ketones (NEGATIVE) Urine Nitrite (NEGATIVE) Urine Bilirubin (NEGATIVE) Urine Urobilinogen (0-1) mg/dL Urine Leukocytes (NEGATIVE) Urine WBC (Auto) (0-5) /HPF Urine RBC (Auto) (0-2) /HPF U Epithel Cells (Auto) (FEW) /HPF Urine Bacteria (Auto) (NEGATIVE) /HPF Urine RBC (0-5) Saw/ul Ur Culture Indicated? Urine Glucose (NEGATIVE) mg/dL Influenza Type A Ag (NEGATIVE) Influenza Type B Ag (NEGATIVE) RSV (PCR) (Negative) SARS-CoV-2 (PCR) (NEGATIVE) Slides for Path Review Accuchecks Date 05/17/22 Time 11:56 - Radiology Impressions Radiology Exams & Impressions: Radiology Procedures Category Date Time Status CHEST 1 VIEW (PORTABLE) Stat Exams 05/16/22 16:39 Completed - Other Procedures and Tests Respiratory Therapy 05/16/22 20:15 Oxygen Nasal Cannula 2 lpm 05/16/22 22:45 Respiratory Therapy Assessment DAILY Assessment/Plan (1) Pneumonia due to COVID-19 virus Current Visit: Yes Status: Acute Assessment & Plan: Chief Complaint Diagnosis COVID-19 Allergies Allergy/AdvReac Type Severity Reaction Status Date / Time Iodinated Contrast Media Allergy Intermediate unknown- Verified 05/16/22 15:48 [Iodinated Contrast Media - hives IV Dye] morphine Allergy Intermediate confusion Verified 05/16/22 15:48 and combative hydromorphone HCl AdvReac Intermediate confusion Verified 05/16/22 15:48 [From Dilaudid] and combative oxycodone HCl AdvReac Intermediate confusion/ Verified 05/16/22 15:48 [From OxyContin] combative Vital Signs (Last 24 hours) Temp Pulse Resp BP Pulse Ox 05/17/22 12:00 18 05/17/22 11:57 98.0 F 57 L 16 147/55 96 05/17/22 10:00 18 05/17/22 08:00 98.1 F 79 19 138/53 96 05/17/22 07:21 79 16 97 05/17/22 05:46 22 05/17/22 04:00 22 05/17/22 03:48 98.7 F 88 22 137/58 94 L 05/17/22 02:00 22 05/17/22 00:00 20 05/16/22 23:19 100.1 F 91 H 20 145/68 95 05/16/22 22:45 80 18 93 L 05/16/22 22:00 20 12/04/22 21:12 100.5 F 93 H 22 161/70 95 05/16/22 19:06 97 05/16/22 18:39 98 H 20 150/81 97 05/16/22 17:39 113 H 24 177/78 92 L 05/16/22 16:39 112 H 23 170/94 94 L 05/16/22 15:48 99.6 F 126 H 22 197/105 97 Home Medications Medication Instructions Recorded Confirmed Last Taken Type Amlodipine Besylate 5 mg 10 mg PO DAILY 05/16/22 05/16/22 05/16/22 History [Norvasc 5 mg] Apixaban [Eliquis 5 mg 5 mg PO BID 05/16/22 05/16/22 05/16/22 History Tablet] Bimatoprost 0.01% [Lumigan 1 drop OP HS 05/16/22 05/16/22 05/15/22 History 0.01% 2.5 ml] Cyanocobalamin 500 Mcg [Vitamin 1,000 mcg PO DAILY 05/16/22 05/16/22 05/16/22 History B-12 500 MCG] Hydrochlorothiazide 25 mg 25 mg PO DAILY 05/16/22 05/16/22 05/16/22 History [hydroDIURIL 25 MG] Hydrocodone/Acetaminophen 1 tab PO Q6HPRN PRN 05/16/22 05/16/22 Unknown History [Hydrocodone-Acetamin 10-325 mg] Insulin Glargine [Lantus 20 unit SQ DAILY 05/16/22 05/16/22 05/16/22 History Insulin] Iron 65 mg PO DAILY 05/16/22 05/16/22 05/16/22 History Isosorbide Mononitrate 30 mg 30 mg PO DAILY 05/16/22 05/16/22 05/16/22 History [Imdur 30 MG] Metformin HCl 500 mg 1,000 mg PO BID 05/16/22 05/16/22 05/16/22 History [Glucophage 500 MG] Methylphenidate 5 mg [Ritalin 5 10 mg PO 1200 05/16/22 05/16/22 05/16/22 History MG] Methylphenidate 5 mg [Ritalin 5 20 mg PO 0600 05/16/22 05/16/22 05/16/22 History MG] Metoprolol Tartrate 25 mg 25 mg PO BID 05/16/22 05/16/22 05/16/22 History [Lopressor 25MG Tab] Multivitamin [Multivitamins] 1 tab PO DAILY 05/16/22 05/16/22 05/16/22 History Omeprazole 40 mg PO DAILY 05/16/22 05/16/22 05/16/22 History Pregabalin 50 mg [Lyrica 150 mg PO BID 05/16/22 05/16/22 05/16/22 History 50MG] Tamsulosin HCl 0.4 mg [Flomax 0.4 mg PO DAILY 05/16/22 05/16/22 05/16/22 Hi story 0.4 MG] Zinc Gluconate [Zinc] 50 mg PO DAILY 05/16/22 05/16/22 05/16/22 History Nirmatrelvir/Ritonavir [Paxlovid See Rx Instructions .ROUTE 05/17/22 Unknown Rx 150-100 mg Pack (Eua)] .COMPLEX 5 Days tablet Current Medications Generic Name Dose Route Start Last Admin Trade Name Freq PRN Reason Stop Dose Admin Acetaminophen 650 mg 05/16/22 20:15 Acetaminophen 325 Mg Tablet PO 06/15/22 20:14 Q4H PRN PRN PAIN AND/OR FEVER Hydrocodone Bitart/Acetaminophen 1 tablet 05/17/22 12:21 Hydrocodone/Acetamin 10-325 Mg Tablet PO 05/22/22 12:20 Q6HPRN PRN PAIN Albuterol Sulfate 4 puff 05/16/22 22:44 Albuterol Common Canister Inhaler IH 06/15/22 22:43 Q4H PRN PRN SHORTNESS OF BREATH/WHEEZING Amlodipine Besylate 10 mg 05/17/22 13:00 Amlodipine Besylate 5 Mg Tablet PO 06/16/22 12:59 DAILY RUTH Apixaban 5 mg 05/17/22 10:00 05/17/22 08:57 Apixaban 2.5 Mg Tablet PO 06/16/22 09:59 5 mg BID RUTH Administration Bimatoprost 0 ml 05/17/22 22:00 Bimatoprost 2.5 Ml Drops OP 06/16/22 21:59 HS RUTH Cyanocobalamin 1,000 mcg 05/17/22 13:00 Cyanocobalamin 500 Mcg Tablet PO 06/16/22 12:59 DAILY RUTH Ferrous Sulfate 325 mg 05/17/22 13:00 Ferrous Sulfate 325 Mg Tablet PO 06/16/22 12:59 DAILY RUTH Hydrochlorothiazide 25 mg 05/17/22 13:00 Hydrochlorothiazide 25 Mg Tablet PO 06/16/22 12:59 DAILY RUTH Azithromycin 500 mg in 250 mls @ 250 mls/hr 05/17/22 22:00 Zithromax 500 Mg/ 250 Ml Nacl Premix IV 06/16/22 21:59 Q24H22 RUTH Ceftriaxone Sodium/Dextrose 1 g in 50 mls @ 100 mls/hr 05/17/22 22:00 Rocephin 1 Gm-D5w 50 Ml Bag IV 05/20/22 21:59 Q24H22 RUTH Sodium Chloride 1,000 mls @ 100 mls/hr 05/16/22 21:00 05/17/22 06:32 Sodium Chloride 0.9% 1000 Ml IV 06/15/22 20:59 100 mls/hr .Q10H RUTH Administration Insulin Glargine 20 unit 05/17/22 13:00 Insulin Glargine 1 Unit SQ 06/16/22 12:59 DAILY [facility] Insulin Human Lispro 0 unit 05/16/22 20:15 05/17/22 08:57 Insulin Lispro 1 Unit SQ 06/15/22 20:14 5 unit UD PRN Administration HYPERGLYCEMIA Isosorbide Mononitrate 30 mg 05/17/22 13:00 Isosorbide Mononitrate 30 Mg Tab PO 06/16/22 12:59 DAILY RUTH Metformin HCl 1,000 mg 05/17/22 17:00 Metformin Hcl 500 Mg Tablet PO 06/16/22 16:59 BIDWM RUTH Methylphenidate HCl 10 mg 05/18/22 13:00 Methylphenidate 5 Mg Tab PO 05/23/22 12:59 1200 RUTH Methylphenidate HCl 20 mg 05/18/22 06:00 Methylphenidate 5 Mg Tab PO 05/23/22 05:59 0600 RUTH Metoprolol Tartrate 25 mg 05/17/22 10:00 05/17/22 08:57 Metoprolol Tartrate 25 Mg Tab PO 06/16/22 09:59 25 mg BID RUTH Administration Multivitamins Therapeutic 1 tab 05/17/22 13:00 Multivitamins,Therapeutic 1 Tab Tab PO 06/16/22 12:59 DAILY RUTH Ondansetron HCl 4 mg 05/16/22 20:15 Ondansetron Hcl 4 Mg/2 Ml Vial IV 06/15/22 20:14 Q6H PRN PRN NAUSEA/VOMITING Pantoprazole Sodium 40 mg 05/18/22 10:00 Protonix (Pantoprazole) 40 Mg Tablet PO 06/17/22 09:59 DAILY [facility] Pregabalin 150 mg 05/17/22 10:00 05/17/22 08:57 Pregabalin 150 Mg Capsule PO 06/16/22 09:59 150 mg BID RUTH Administration Tamsulosin HCl 0.4 mg 05/17/22 13:00 Tamsulosin Hcl 0.4 Mg Cap PO 06/16/22 12:59 DAILY [facility] Zinc Gluconate 50 mg 05/17/22 13:00 Zinc Gluconate 50 Mg Tablet PO 06/16/22 12:59 DAILY [facility] Discontinued Medications Generic Name Dose Route Start Last Admin Trade Name Freq PRN Reason Stop Dose Admin Acetaminophen 975 mg 05/16/22 16:12 05/16/22 16:30 Acetaminophen 325 Mg Tablet PO 05/16/22 16:13 975 mg STAT STA Administration Acetaminophen Confirm 05/16/22 16:30 Acetaminophen 325 Mg Tablet Administered 05/16/22 16:31 Dose 975 mg .ROUTE .STK-MED ONE Albuterol/Ipratropium 3 ml 05/16/22 20:15 05/16/22 20:15 Ipratropium/Albuterol Sulfate 3 Ml Ampul.Neb 06/15/22 20:14 Not Given Q6HRT RUTH Albuterol/Ipratropium 3 ml 05/17/22 01:00 Ipratropium/Albuterol Sulfate 3 Ml Ampul.Neb 06/16/22 00:59 Q6HRT RUTH Apixaban 5 mg 05/17/22 10:00 Apixaban 2.5 Mg Tablet PO 01/04/23 09:59 BID RUTH Apixaban 5 mg 05/17/22 23:08 Apixaban 2.5 Mg Tablet PO 05/17/22 23:09 NOW ONE Apixaban 5 mg 05/16/22 23:08 05/16/22 23:23 Apixaban 2.5 Mg Tablet PO 05/16/22 23:09 5 mg NOW ONE Administration Dexamethasone Sodium Phosphate 8 mg 05/16/22 18:23 05/16/22 19:14 Dexamethasone Sod Phosphate 4 Mg/Ml Ml IV 05/16/22 18:24 8 mg STAT ONE Administration Dexamethasone Sodium Phosphate Confirm 05/16/22 19:13 Dexamethasone Sod Phosphate 4 Mg/Ml Ml Administered 05/16/22 19:14 Dose 8 mg .ROUTE .STK-MED ONE Ceftriaxone Sodium/Dextrose 2 g in 50 mls @ 100 mls/hr 05/16/22 18:01 05/16/22 18:49 Rocephin 2 Gm-D5w 50ml Bag IV 05/16/22 18:30 Infused STAT STA Infusion Azithromycin 500 mg in 250 mls @ 250 mls/hr 05/16/22 18:01 05/16/22 19:35 Zithromax 500 Mg/ 250 Ml Nacl Premix IV 05/16/22 19:00 Infused STAT STA Infusion Magnesium Sulfate/Dextrose 100 mls @ 200 mls/hr 05/16/22 18:02 05/16/22 19:37 Magnesium 1 Gm / 100 Ml D5w IV 05/16/22 18:31 200 mls/hr STAT ONE Administration Ceftriaxone Sodium/Dextrose Confirm 05/16/22 18:09 Rocephin 2 Gm-D5w 50ml Bag Administered 05/16/22 18:10 Dose 2 g in 50 mls @ ud IV .STK-MED ONE Azithromycin Confirm 05/16/22 18:29 Zithromax 500 Mg/ 250 Ml Nacl Premix Administered 05/16/22 18:30 Dose 500 mg in 250 mls @ ud IV .STK-MED ONE Magnesium Sulfate/Dextrose Confirm 05/16/22 19:36 Magnesium 1 Gm / 100 Ml D5w Administered 05/16/22 19:37 Dose 100 mls @ ud IV .STK-MED ONE Potassium Chloride/Sodium Chloride 1,000 mls @ 100 mls/hr 05/16/22 20:15 Sodium Chloride 0.9% W/ 20 Meq Kcl/Liter IV 06/15/22 20:14 .Q10H RUTH Metoprolol Tartrate 25 mg 05/16/22 23:12 05/16/22 23:23 Metoprolol Tartrate 25 Mg Tab PO 05/16/22 23:13 25 mg NOW ONE Administration Pantoprazole Sodium 40 mg 05/17/22 10:00 05/17/22 08:57 Pantoprazole 40 Mg Vial IV 06/16/22 09:59 40 mg Q24H10 RUTH Administration Pregabalin 150 mg 05/17/22 23:11 Pregabalin 150 Mg Capsule PO 05/17/22 23:12 NOW ONE Pregabalin 150 mg 05/16/22 23:11 05/16/22 23:22 Pregabalin 150 Mg Capsule PO 05/16/22 23:12 150 mg NOW ONE Administration Intake & Output (Last 24 hours) 05/15/22 05/16/22 05/17/22 05/18/22 11:59 11:59 11:59 11:59 Intake Total 1827 1525 Output Total 1875 150 Balance -48 1375 Weight 89 kg Microbiology Results (Last 24 hours) 05/16/22 16:54 Blood Blood Culture Gram Stain - Pending 05/16/22 16:54 Blood Blood Culture - Pending 05/16/22 16:15 Blood Blood Culture Gram Stain - Pending 05/16/22 16:15 Blood Blood Culture - Pending Laboratory Results (Last 24 hours) 05/17/22 05/17/22 05/17/22 11:50 07:46 02:15 WBC RBC Hgb Hct MCV MCH MCHC RDW Plt Count MPV Gran % Immature Gran % (Auto) Nucleat RBC Rel Count Eos # (Auto) Immature Gran # (Auto) Absolute Lymphs (auto) Absolute Monos (auto) Absolute Nucleated RBC Lymphocytes % Monocytes % Eosinophils % Basophils % Absolute Granulocytes Basophils # Sodium 138 Potassium 4.8 Chloride 109 H Carbon Dioxide 22 Anion Gap 12.4 BUN 23 H Creatinine 1.68 H Estimated GFR 41.9 Glucose 332 H POC Glucometer 211 H 236 H Lactic Acid Calcium 9.2 Magnesium 1.7 Total Bilirubin 0.40 AST 24 ALT 15 Alkaline Phosphatase 62 Troponin I NT-Pro-B Natriuret Pep Serum Total Protein 7.4 Albumin 3.8 Procalcitonin Urinalys Dipstick Clnc Urine Color Urine Appearance Urine pH Ur Specific Brooks POC Urine Protein Conf Urine Ketones Urine Nitrite Urine Bilirubin Urine Urobilinogen Urine Leukocytes Urine WBC (Auto) Urine RBC (Auto) U Epithel Cells (Auto) Urine Bacteria (Auto) Urine RBC Ur Culture Indicated? Urine Glucose Influenza Type A Ag Influenza Type B Ag RSV (PCR) SARS-CoV-2 (PCR) Slides for Path Review 05/17/22 05/17/22 05/16/22 02:15 02:15 21:22 WBC 9.0 RBC 3.95 L Hgb 11.6 L Hct 36.1 L MCV 91.4 MCH 29.4 MCHC 32.1 RDW 14.2 H Plt Count 124 L MPV 12.5 H Gran % 90.9 H Immature Gran % (Auto) 0.6 H Nucleat RBC Rel Count 0.0 Eos # (Auto) 0 Immature Gran # (Auto) 0.05 H Absolute Lymphs (auto) 0.56 L Absolute Monos (auto) 0.16 Absolute Nucleated RBC 0.00 Lymphocytes % 6.3 L Monocytes % 1.8 Eosinophils % 0.0 Basophils % 0.4 Absolute Granulocytes 8.15 H Basophils # 0.04 Sodium Potassium Chloride Carbon Dioxide Anion Gap BUN Creatinine Estimated GFR Glucose POC Glucometer 159 H Lactic Acid Calcium Magnesium Total Bilirubin AST ALT Alkaline Phosphatase Troponin I 0.021 NT-Pro-B Natriuret Pep Serum Total Protein Albumin Procalcitonin Urinalys Dipstick Clnc Urine Color Urine Appearance Urine pH Ur Specific Brooks POC Urine Protein Conf Urine Ketones Urine Nitrite Urine Bilirubin Urine Urobilinogen Urine Leukocytes Urine WBC (Auto) Urine RBC (Auto) U Epithel Cells (Auto) Urine Bacteria (Auto) Urine RBC Ur Culture Indicated? Urine Glucose Influenza Type A Ag Influenza Type B Ag RSV (PCR) SARS-CoV-2 (PCR) Slides for Path Review YES 05/16/22 05/16/22 05/16/22 21:08 17:15 16:37 WBC RBC Hgb Hct MCV MCH MCHC RDW Plt Count MPV Gran % Immature Gran % (Auto) Nucleat RBC Rel Count Eos # (Auto) Immature Gran # (Auto) Absolute Lymphs (auto) Absolute Monos (auto) Absolute Nucleated RBC Lymphocytes % Monocytes % Eosinophils % Basophils % Absolute Granulocytes Basophils # Sodium Potassium Chloride Carbon Dioxide Anion Gap BUN Creatinine Estimated GFR Glucose POC Glucometer Lactic Acid 0.7 Calcium Magnesium Total Bilirubin AST ALT Alkaline Phosphatase Troponin I 0.024 NT-Pro-B Natriuret Pep Serum Total Protein Albumin Procalcitonin Urinalys Dipstick Clnc MAIN LAB Urine Color YELLOW Urine Appearance CLEAR Urine pH 7.5 Ur Specific Brooks 1.020 POC Urine Protein Conf >=300 A Urine Ketones NEGATIVE Urine Nitrite NEGATIVE Urine Bilirubin NEGATIVE Urine Urobilinogen 0.2 Urine Leukocytes NEGATIVE Urine WBC (Auto) NONE Urine RBC (Auto) NONE U Epithel Cells (Auto) NONE Urine Bacteria (Auto) NONE Urine RBC TRACE-INTACT A Ur Culture Indicated? NO Urine Glucose 500 A Influenza Type A Ag Influenza Type B Ag RSV (PCR) SARS-CoV-2 (PCR) Slides for Path Review 05/16/22 05/16/22 05/16/22 16:15 16:15 16:15 WBC RBC Hgb Hct MCV MCH MCHC RDW Plt Count MPV Gran % Immature Gran % (Auto) Nucleat RBC Rel Count Eos # (Auto) Immature Gran # (Auto) Absolute Lymphs (auto) Absolute Monos (auto) Absolute Nucleated RBC Lymphocytes % Monocytes % Eosinophils % Basophils % Absolute Granulocytes Basophils # Sodium 139 Potassium 4.9 Chloride 108 H Carbon Dioxide 26 Anion Gap 10.2 BUN 24 H Creatinine 1.80 H Estimated GFR 38.7 Glucose 238 H POC Glucometer Lactic Acid Calcium 9.4 Magnesium 1.5 L Total Bilirubin 0.40 AST 27 ALT 16 Alkaline Phosphatase 69 Troponin I 0.016 NT-Pro-B Natriuret Pep 925 Serum Total Protein 7.9 Albumin 4.1 Procalcitonin 0.094 H Urinalys Dipstick Clnc Urine Color Urine Appearance Urine pH Ur Specific Brooks POC Urine Protein Conf Urine Ketones Urine Nitrite Urine Bilirubin Urine Urobilinogen Urine Leukocytes Urine WBC (Auto) Urine RBC (Auto) U Epithel Cells (Auto) Urine Bacteria (Auto) Urine RBC Ur Culture Indicated? Urine Glucose Influenza Type A Ag Influenza Type B Ag RSV (PCR) SARS-CoV-2 (PCR) Slides for Path Review 05/16/22 05/16/22 16:15 16:05 WBC 9.4 RBC 3.78 L Hgb 11.0 L Hct 34.8 L MCV 92.1 MCH 29.1 MCHC 31.6 L RDW 14.1 H Plt Count 128 L MPV 13.0 H Gran % 81.9 H Immature Gran % (Auto) 0.3 Nucleat RBC Rel Count 0.0 Eos # (Auto) 0.08 Immature Gran # (Auto) 0.03 Absolute Lymphs (auto) 0.85 L Absolute Monos (auto) 0.68 Absolute Nucleated RBC 0.00 Lymphocytes % 9.0 L Monocytes % 7.2 Eosinophils % 0.9 Basophils % 0.7 Absolute Granulocytes 7.70 H Basophils # 0.07 Sodium Potassium Chloride Carbon Dioxide Anion Gap BUN Creatinine Estimated GFR Glucose POC Glucometer Lactic Acid Calcium Magnesium Total Bilirubin AST ALT Alkaline Phosphatase Troponin I NT-Pro-B Natriuret Pep Serum Total Protein Albumin Procalcitonin Urinalys Dipstick Clnc Urine Color Urine Appearance Urine pH Ur Specific Brooks POC Urine Protein Conf Urine Ketones Urine Nitrite Urine Bilirubin Urine Urobilinogen Urine Leukocytes Urine WBC (Auto) Urine RBC (Auto) U Epithel Cells (Auto) Urine Bacteria (Auto) Urine RBC Ur Culture Indicated? Urine Glucose Influenza Type A Ag NEGATIVE Influenza Type B Ag NEGATIVE RSV (PCR) NEGATIVE SARS-CoV-2 (PCR) POSITIVE A Slides for Path Review YES Orders (Last 24 hours) Category Date Time Status Bedrest ROUTINE Activity 05/16/22 20:15 Active Up With Assistance ROUTINE Activity 05/16/22 20:15 Active Code Status Order ROUTINE Care 05/16/22 20:15 Active Fall Protocol Q1H Care 05/16/22 20:15 Active IV Care Q6H Care 05/16/22 20:15 Active IV Insertion STAT Care 05/16/22 16:38 Completed Isolation, Initiate & Maintain Q6H Care 05/16/22 20:15 Active POCT Glucose Check ACHS Care 05/16/22 20:[address] in Observation ROUTINE Care 05/16/22 20:15 Active Telemetry q6h Care 05/16/22 20:15 Active Weight,Daily 0600 Care 05/16/22 20:15 Active Cardio-Pulmonary Rehab .as ordered Cons 05/16/22 21:24 Active Consistent Carbohydrate Diet 1800 Calorie Diet 05/17/22 Breakfast Active Nutritional Admission Screen ONCE Diet 05/16/22 21:24 Active Discharge Routine Discharge 05/17/22 Ordered CHEST 1 VIEW (PORTABLE) Stat Exams 05/16/22 16:39 Completed BLOOD CULTURE Stat Lab 05/16/22 16:54 Received CBC W DIFF AM.LAB Lab 05/17/22 02:15 Completed CBC W DIFF Stat Lab 05/16/22 16:15 Completed CMP AM.LAB Lab 05/17/22 02:15 Completed CMP Stat Lab 05/16/22 16:15 Completed COVID/FLU/RSV Panel Stat Lab 05/16/22 16:05 Completed Lactic Acid Stat Lab 05/16/22 17:15 Completed MAG [MAGNESIUM] AM.LAB Lab 05/18/22 04:00 Ordered MAGNESIUM Routine Lab 05/17/22 02:15 Completed MAGNESIUM Stat Lab 05/16/22 16:15 Completed NT PRO BNP Stat Lab 05/16/22 16:15 Completed POCT GLUCOSE Stat Lab 05/16/22 21:22 Completed POCT GLUCOSE Stat Lab 05/17/22 07:46 Completed POCT GLUCOSE Stat Lab 05/17/22 11:50 Completed PROCALCITONIN Stat Lab 05/16/22 16:15 Completed TROPONIN Q4H Lab 05/16/22 16:15 Completed TROPONIN Q4H Lab 05/16/22 21:08 Completed TROPONIN Q4H Lab 05/17/22 02:15 Completed UA W/RFX CULTURE Stat Lab 05/16/22 16:37 Completed Acetaminophen 325 mg [Tylenol 325 mg] Med 05/16/22 20:15 Active 650 mg PO Q4H PRN PRN Acetaminophen 325 mg [Tylenol 325 mg] Med 05/16/22 16:30 Discontinued 975 mg .ROUTE .STK-MED ONE Acetaminophen 325 mg [Tylenol 325 mg] Med 05/16/22 16:12 Discontinued 975 mg PO STAT STA Albuterol Common Canister [Ventolin Common Canister* Med 05/16/22 22:44 Active ] 4 puff IH Q4H PRN PRN Albuterol/Ipratropium 3ml Neb* [DUONEB 0.5-3 MG/3 ml Med 05/16/22 20:15 Discontinued Neb] 3 ml IH Q6HRT Albuterol/Ipratropium 3ml Neb* [DUONEB 0.5-3 MG/3 ml Med 05/17/22 01:00 Discontinued Neb] 3 ml IH Q6HRT Amlodipine Besylate 5 mg [Norvasc 5 mg] Med 05/17/22 13:00 Active 10 mg PO DAILY Apixaban [Eliquis 2.5 mg Tablet] Med 05/17/22 10:00 Active 5 mg PO BID Apixaban [Eliquis 2.5 mg Tablet] Med 05/17/22 10:00 Discontinued 5 mg PO BID Apixaban [Eliquis 2.5 mg Tablet] Med 05/16/22 23:08 Discontinued 5 mg PO NOW ONE Apixaban [Eliquis 2.5 mg Tablet] Med 05/17/22 23:08 Discontinued 5 mg PO NOW ONE Azithromycin 500 mg/250 ml [Zithromax 500 MG/ 250 ML Med 05/17/22 22:00 Active NaCl Premix] 500 mg in 250 ml IV Q24H22 Azithromycin 500 mg/250 ml [Zithromax 500 MG/ 250 ML Med 05/16/22 18:01 Discontinued NaCl Premix] 500 mg in 250 ml IV STAT Azithromycin 500 mg/250 ml [Zithromax 500 MG/ 250 ML Med 05/16/22 18:29 Discontinued NaCl Premix] 500 mg in 250 ml IV UD Bimatoprost 0.01% [Lumigan 0.01% 2.5 ml] Med 05/17/22 22:00 Active 0 ml OP HS Ceftriaxone 1 GM/50 ML PREMIX* [ROCEPHIN 1 Gm-D5w 50 ml Med 05/17/22 22:00 Active Bag] 1 g in 50 ml IV Q24H22 Ceftriaxone 2 GM/50 ML PREMIX* [ROCEPHIN 2 Gm-D5w 50ML Med 05/16/22 18:01 Discontinued BAG] 2 g in 50 ml IV STAT Ceftriaxone 2 GM/50 ML PREMIX* [ROCEPHIN 2 Gm-D5w 50ML Med 05/16/22 18:09 Discontinued BAG] 2 g in 50 ml IV UD Cyanocobalamin 500 Mcg [Vitamin B-12 500 MCG] Med 05/17/22 13:00 Active 1,000 mcg PO DAILY Dexamethasone 4 mg [Decadron 4 MG INJ] Med 05/16/22 19:13 Discontinued 8 mg .ROUTE .STK-MED ONE Dexamethasone 4 mg [Decadron 4 MG INJ] Med 05/16/22 18:23 Discontinued 8 mg IV STAT ONE Ferrous Sulfate 325 mg [Feosol 325 mg] Med 05/17/22 13:00 Active 325 mg PO DAILY Hydrochlorothiazide 25 mg [hydroDIURIL 25 MG] Med 05/17/22 13:00 Active 25 mg PO DAILY Hydrocodone/Acetaminophen [Hydrocodone-Acetamin 10-325 Med 05/17/22 12:21 Active mg] 1 tablet PO Q6HPRN PRN Insulin Glargine [Lantus Insulin] Med 05/17/22 13:00 Active 20 unit SQ DAILY Insulin Lispro [Humalog] Med 05/16/22 20:15 Active See Dose Instructions SQ UD PRN Isosorbide Mononitrate 30 mg [Imdur 30 MG] Med 05/17/22 13:00 Active 30 mg PO DAILY Magnesium Sulfate 1 gm/100 ml* [Magnesium 1 Gm / 100 Ml Med 05/16/22 18:02 Discontinued D5W] 100 ml IV STAT Magnesium Sulfate 1 gm/100 ml* [Magnesium 1 Gm / 100 Ml Med 05/16/22 19:36 Discontinued D5W] 100 ml IV UD Metformin HCl 500 mg [Glucophage 500 MG] Med 05/17/22 17:00 Active 1,000 mg PO BIDWM Methylphenidate 5 mg [Ritalin 5 MG] Med 05/18/22 13:00 Active 10 mg PO 1200 Methylphenidate 5 mg [Ritalin 5 MG] Med 05/18/22 06:00 Active 20 mg PO 0600 Metoprolol Tartrate 25 mg [Lopressor 25MG Tab] Med 05/17/22 10:00 Active 25 mg PO BID Metoprolol Tartrate 25 mg [Lopressor 25MG Tab] Med 05/16/22 23:12 Discontinued 25 mg PO NOW ONE Multivitamins,Therapeutic Tab* [Theragran Multivitamin* Med 05/17/22 13:00 Active ] 1 tab PO DAILY NaCl 0.9% 1000 ml + KCl 20 Meq [Sodium Chloride 0.9% W/ Med 05/16/22 20:15 Discontinued 20 mEq KCl/LITER] 1,000 ml IV 100 mls/hr NaCl 0.9% 1000 ml [Sodium Chloride 0.9% 1000 ML] 1,000 Med 05/16/22 21:00 Active ml IV 100 mls/hr Ondansetron HCl 4 mg/2 ml [Zofran 4 MG/2 ML VIAL] Med 05/16/22 20:15 Active 4 mg IV Q6H PRN PRN PANTOPRAZOLE 40 mg Tablet [Protonix 40MG Tablet] Med 05/18/22 10:00 Active 40 mg PO DAILY Pantoprazole 40 mg [Protonix 40 mg IV] Med 05/17/22 10:00 Discontinued 40 mg IV Q24H10 Pregabalin [Lyrica 150Mg] Med 05/17/22 10:00 Active 150 mg PO BID Pregabalin [Lyrica 150Mg] Med 05/16/22 23:11 Discontinued 150 mg PO NOW ONE Pregabalin [Lyrica 150Mg] Med 05/17/22 23:11 Discontinued 150 mg PO NOW ONE Tamsulosin HCl 0.4 mg [Flomax 0.4 MG] Med 05/17/22 13:00 Active 0.4 mg PO DAILY Zinc Gluconate 50 mg [Zinc Gluconate 50 MG] Med 05/17/22 13:00 Active 50 mg PO DAILY Oxygen Nasal Cannula 2 lpm RT 05/16/22 20:15 Active Pulse Oximetry .spot check RT 05/16/22 22:45 Active Respiratory Therapy Assessment DAILY RT 05/16/22 22:45 Active Patient Care Notes (Last 24 hours) 05/17/22 10:44 Case Management Note by Jeana Alvarez S/W PATIENT AND STATES DOES NOT HAVE PULSE OX. SPOKE WITH PRIMARY NURSE AND PULSE OX GIVEN TO HER TO GIVE TO PATIENT WHEN DC HOME. Initialized on 05/17/22 10:44 - END OF NOTE 05/16/22 21:28 Nursing Note by Josy Pena Daughter, Criselda Lindsay, named as lay caregiver, however she is Covid + also so she would not be able to come in for any discharge teaching Initialized on 05/16/22 21:28 - END OF NOTE Code(s): U07.1 - COVID-19; J12.89 - OTHER VIRAL PNEUMONIA (2) COVID-19 virus detected Current Visit: Yes Status: Acute Code(s): U07.1 - COVID-19 Hospital Summary - Hospital Course Hospital Course: Last Vital Signs Temp 98.0 F 05/17/22 11:57 Pulse 57 L 05/17/22 11:57 Resp 18 05/17/22 12:00 BP 147/55 05/17/22 11:57 Pulse Ox 96 05/17/22 11:57 Allergies Iodinated Contrast Media [Iodinated Contrast Media - IV Dye] Allergy (Intermediate, Verified 05/16/22 15:48) unknown- hives morphine Allergy (Intermediate, Verified 05/16/22 15:48) confusion and combative hydromorphone HCl [From Dilaudid] Adverse Reaction (Intermediate, Verified 05/16/22 15:48) confusion and combative oxycodone HCl [From OxyContin] Adverse Reaction (Intermediate, Verified 05/16/22 15:48) confusion/ combative Active Medications Acetaminophen (Acetaminophen 325 Mg Tablet) 650 mg PO Q4H PRN PRN PRN Reason: PAIN AND/OR FEVER Stop: 06/15/22 20:14 Hydrocodone Bitart/Acetaminophen (Hydrocodone/Acetamin 10-325 Mg Tablet) 1 tablet PO Q6HPRN PRN PRN Reason: PAIN Stop: 05/22/22 12:20 Albuterol Sulfate (Albuterol Common Canister Inhaler) 4 puff IH Q4H PRN PRN PRN Reason: SHORTNESS OF BREATH/WHEEZING Stop: 06/15/22 22:43 Amlodipine Besylate (Amlodipine Besylate 5 Mg Tablet) 10 mg PO DAILY RUTH Stop: 06/16/22 12:59 Apixaban (Apixaban 2.5 Mg Tablet) 5 mg PO BID RUTH Stop: 06/16/22 09:59 Last Admin: 05/17/22 08:57 Dose: 5 mg Bimatoprost (Bimatoprost 2.5 Ml Drops) 0 ml OP HS RUTH Stop: 06/16/22 21:59 Cyanocobalamin (Cyanocobalamin 500 Mcg Tablet) 1,000 mcg PO DAILY RUTH Stop: 06/16/22 12:59 Ferrous Sulfate (Ferrous Sulfate 325 Mg Tablet) 325 mg PO DAILY RUTH Stop: 06/16/22 12:59 Hydrochlorothiazide (Hydrochlorothiazide 25 Mg Tablet) 25 mg PO DAILY [facility] Stop: 06/16/22 12:59 Azithromycin (Zithromax 500 Mg/ 250 Ml Nacl Premix) 500 mg in 250 mls @ 250 mls/hr IV Q24H22 RUTH Stop: 06/16/22 21:59 Ceftriaxone Sodium/Dextrose (Rocephin 1 Gm-D5w 50 Ml Bag) 1 g in 50 mls @ 100 mls/hr IV Q24H22 RUTH Stop: 05/20/22 21:59 Sodium Chloride (Sodium Chloride 0.9% 1000 Ml) 1,000 mls @ 100 mls/hr IV .Q10H [facility] Stop: 06/15/22 20:59 Last Admin: 05/17/22 06:32 Dose: 100 mls/hr Insulin Glargine (Insulin Glargine 1 Unit) 20 unit SQ DAILY RUTH Stop: 06/16/22 12:59 Insulin Human Lispro (Insulin Lispro 1 Unit) 0 unit SQ UD PRN PRN Reason: HYPERGLYCEMIA Stop: 06/15/22 20:14 Last Admin: 05/17/22 08:57 Dose: 5 unit Isosorbide Mononitrate (Isosorbide Mononitrate 30 Mg Tab) 30 mg PO DAILY [facility] Stop: 06/16/22 12:59 Metformin HCl (Metformin Hcl 500 Mg Tablet) 1,000 mg PO BIDWM [facility] Stop: 06/16/22 16:59 Methylphenidate HCl (Methylphenidate 5 Mg Tab) 10 mg PO 1200 [facility] Stop: 05/23/22 12:59 Methylphenidate HCl (Methylphenidate 5 Mg Tab) 20 mg PO 0600 [facility] Stop: 05/23/22 05:59 Metoprolol Tartrate (Metoprolol Tartrate 25 Mg Tab) 25 mg PO BID [facility] Stop: 06/16/22 09:59 Last Admin: 05/17/22 08:57 Dose: 25 mg Multivitamins Therapeutic (Multivitamins,Therapeutic 1 Tab Tab) 1 tab PO DAILY [facility] Stop: 06/16/22 12:59 Ondansetron HCl (Ondansetron Hcl 4 Mg/2 Ml Vial) 4 mg IV Q6H PRN PRN PRN Reason: NAUSEA/VOMITING Stop: 01/03/23 20:14 Pantoprazole Sodium (Protonix (Pantoprazole) 40 Mg Tablet) 40 mg PO DAILY [facility] Stop: 06/17/22 09:59 Pregabalin (Pregabalin 150 Mg Capsule) 150 mg PO BID RUTH Stop: 06/16/22 09:59 Last Admin: 05/17/22 08:57 Dose: 150 mg Tamsulosin HCl (Tamsulosin Hcl 0.4 Mg Cap) 0.4 mg PO DAILY RUTH Stop: 06/16/22 12:59 Zinc Gluconate (Zinc Gluconate 50 Mg Tablet) 50 mg PO DAILY [facility] Stop: 06/16/22 12:59 Intake & Output 05/17/22 05/18/22 11:59 11:59 Intake Total 1827 1525 Output Total 1875 150 Balance -48 1375 Weight 89 kg Orders 05/16/22 21:24 Cardio-Pulmonary Rehab .as ordered Nutritional Admission Screen ONCE 05/16/22 22:44 Albuterol Common Canister [Ventolin Common Canister] 4 puff IH Q4H PRN PRN 05/16/22 22:45 Pulse Oximetry .spot check Respiratory Therapy Assessment DAILY 05/17/22 Discharge Routine 05/17/22 10:00 Apixaban [Eliquis 2.5 mg Tablet] 5 mg PO BID Metoprolol Tartrate 25 mg [Lopressor 25MG Tab] 25 mg PO BID Pregabalin [Lyrica 150Mg] 150 mg PO BID 05/17/22 12:21 Hydrocodone/Acetaminophen [Hydrocodone-Acetamin 10-325 mg] 1 tablet PO Q6HPRN PRN 05/17/22 13:00 Amlodipine Besylate 5 mg [Norvasc 5 mg] 10 mg PO DAILY Cyanocobalamin 500 Mcg [Vitamin B-12 500 MCG] 1,000 mcg PO DAILY Ferrous Sulfate 325 mg [Feosol 325 mg] 325 mg PO DAILY Hydrochlorothiazide 25 mg [hydroDIURIL 25 MG] 25 mg PO DAILY Insulin Glargine [Lantus Insulin] 20 unit SQ DAILY Isosorbide Mononitrate 30 mg [Imdur 30 MG] 30 mg PO DAILY Multivitamins,Therapeutic Tab* [Theragran Multivitamin] 1 tab PO DAILY Tamsulosin HCl 0.4 mg [Flomax 0.4 MG] 0.4 mg PO DAILY Zinc Gluconate 50 mg [Zinc Gluconate 50 MG] 50 mg PO DAILY 05/17/22 17:00 Metformin HCl 500 mg [Glucophage 500 MG] 1,000 mg PO BIDWM 05/17/22 22:00 Bimatoprost 0.01% [Lumigan 0.01% 2.5 ml] 0 ml OP HS 05/18/22 04:00 MAG [MAGNESIUM] AM.LAB 05/18/22 06:00 Methylphenidate 5 mg [Ritalin 5 MG] 20 mg PO 0600 05/18/22 10:00 PANTOPRAZOLE 40 mg Tablet [Protonix 40MG Tablet] 40 mg PO DAILY 05/18/22 13:00 Methylphenidate 5 mg [Ritalin 5 MG] 10 mg PO 1200 Lab Tests 05/16/22 05/16/22 05/16/22 16:05 16:15 16:15 WBC 9.4 RBC 3.78 L Hgb 11.0 L Hct 34.8 L MCV 92.1 MCH 29.1 MCHC 31.6 L RDW 14.1 H Plt Count 128 L MPV 13.0 H Gran % 81.9 H Immature Gran % (Auto) 0.3 Nucleat RBC Rel Count 0.0 Eos # (Auto) 0.08 Immature Gran # (Auto) 0.03 Absolute Lymphs (auto) 0.85 L Absolute Monos (auto) 0.68 Absolute Nucleated RBC 0.00 Lymphocytes % 9.0 L Monocytes % 7.2 Eosinophils % 0.9 Basophils % 0.7 Absolute Granulocytes 7.70 H Basophils # 0.07 Sodium 139 Potassium 4.9 Chloride 108 H Carbon Dioxide 26 Anion Gap 10.2 BUN 24 H Creatinine 1.80 H Estimated GFR 38.7 Glucose 238 H POC Glucometer Lactic Acid Calcium 9.4 Magnesium 1.5 L Total Bilirubin 0.40 AST 27 ALT 16 Alkaline Phosphatase 69 Troponin I NT-Pro-B Natriuret Pep 925 Serum Total Protein 7.9 Albumin 4.1 Procalcitonin Urinalys Dipstick Clnc Urine Color Urine Appearance Urine pH Ur Specific Brooks POC Urine Protein Conf Urine Ketones Urine Nitrite Urine Bilirubin Urine Urobilinogen Urine Leukocytes Urine WBC (Auto) Urine RBC (Auto) U Epithel Cells (Auto) Urine Bacteria (Auto) Urine RBC Ur Culture Indicated? Urine Glucose Influenza Type A Ag NEGATIVE Influenza Type B Ag NEGATIVE RSV (PCR) NEGATIVE SARS-CoV-2 (PCR) POSITIVE A Slides for Path Review YES 05/16/22 05/16/22 05/16/22 16:15 16:15 16:37 WBC RBC Hgb Hct MCV MCH MCHC RDW Plt Count MPV Gran % Immature Gran % (Auto) Nucleat RBC Rel Count Eos # (Auto) Immature Gran # (Auto) Absolute Lymphs (auto) Absolute Monos (auto) Absolute Nucleated RBC Lymphocytes % Monocytes % Eosinophils % Basophils % Absolute Granulocytes Basophils # Sodium Potassium Chloride Carbon Dioxide Anion Gap BUN Creatinine Estimated GFR Glucose POC Glucometer Lactic Acid Calcium Magnesium Total Bilirubin AST ALT Alkaline Phosphatase Troponin I 0.016 NT-Pro-B Natriuret Pep Serum Total Protein Albumin Procalcitonin 0.094 H Urinalys Dipstick Clnc MAIN LAB Urine Color YELLOW Urine Appearance CLEAR Urine pH 7.5 Ur Specific Brooks 1.020 POC Urine Protein Conf >=300 A Urine Ketones NEGATIVE Urine Nitrite NEGATIVE Urine Bilirubin NEGATIVE Urine Urobilinogen 0.2 Urine Leukocytes NEGATIVE Urine WBC (Auto) NONE Urine RBC (Auto) NONE U Epithel Cells (Auto) NONE Urine Bacteria (Auto) NONE Urine RBC TRACE-INTACT A Ur Culture Indicated? NO Urine Glucose 500 A Influenza Type A Ag Influenza Type B Ag RSV (PCR) SARS-CoV-2 (PCR) Slides for Path Review 05/16/22 05/16/22 05/16/22 17:15 21:08 21:22 WBC RBC Hgb Hct MCV MCH MCHC RDW Plt Count MPV Gran % Immature Gran % (Auto) Nucleat RBC Rel Count Eos # (Auto) Immature Gran # (Auto) Absolute Lymphs (auto) Absolute Monos (auto) Absolute Nucleated RBC Lymphocytes % Monocytes % Eosinophils % Basophils % Absolute Granulocytes Basophils # Sodium Potassium Chloride Carbon Dioxide Anion Gap BUN Creatinine Estimated GFR Glucose POC Glucometer 159 H Lactic Acid 0.7 Calcium Magnesium Total Bilirubin AST ALT Alkaline Phosphatase Troponin I 0.024 NT-Pro-B Natriuret Pep Serum Total Protein Albumin Procalcitonin Urinalys Dipstick Clnc Urine Color Urine Appearance Urine pH Ur Specific Brooks POC Urine Protein Conf Urine Ketones Urine Nitrite Urine Bilirubin Urine Urobilinogen Urine Leukocytes Urine WBC (Auto) Urine RBC (Auto) U Epithel Cells (Auto) Urine Bacteria (Auto) Urine RBC Ur Culture Indicated? Urine Glucose Influenza Type A Ag Influenza Type B Ag RSV (PCR) SARS-CoV-2 (PCR) Slides for Path Review 05/17/22 05/17/22 05/17/22 02:15 02:15 02:15 WBC 9.0 RBC 3.95 L Hgb 11.6 L Hct 36.1 L MCV 91.4 MCH 29.4 MCHC 32.1 RDW 14.2 H Plt Count 124 L MPV 12.5 H Gran % 90.9 H Immature Gran % (Auto) 0.6 H Nucleat RBC Rel Count 0.0 Eos # (Auto) 0 Immature Gran # (Auto) 0.05 H Absolute Lymphs (auto) 0.56 L Absolute Monos (auto) 0.16 Absolute Nucleated RBC 0.00 Lymphocytes % 6.3 L Monocytes % 1.8 Eosinophils % 0.0 Basophils % 0.4 Absolute Granulocytes 8.15 H Basophils # 0.04 Sodium 138 Potassium 4.8 Chloride 109 H Carbon Dioxide 22 Anion Gap 12.4 BUN 23 H Creatinine 1.68 H Estimated GFR 41.9 Glucose 332 H POC Glucometer Lactic Acid Calcium 9.2 Magnesium 1.7 Total Bilirubin 0.40 AST 24 ALT 15 Alkaline Phosphatase 62 Troponin I 0.021 NT-Pro-B Natriuret Pep Serum Total Protein 7.4 Albumin 3.8 Procalcitonin Urinalys Dipstick Clnc Urine Color Urine Appearance Urine pH Ur Specific Brooks POC Urine Protein Conf Urine Ketones Urine Nitrite Urine Bilirubin Urine Urobilinogen Urine Leukocytes Urine WBC (Auto) Urine RBC (Auto) U Epithel Cells (Auto) Urine Bacteria (Auto) Urine RBC Ur Culture Indicated? Urine Glucose Influenza Type A Ag Influenza Type B Ag RSV (PCR) SARS-CoV-2 (PCR) Slides for Path Review YES 05/17/22 05/17/22 07:46 11:50 WBC RBC Hgb Hct MCV MCH MCHC RDW Plt Count MPV Gran % Immature Gran % (Auto) Nucleat RBC Rel Count Eos # (Auto) Immature Gran # (Auto) Absolute Lymphs (auto) Absolute Monos (auto) Absolute Nucleated RBC Lymphocytes % Monocytes % Eosinophils % Basophils % Absolute Granulocytes Basophils # Sodium Potassium Chloride Carbon Dioxide Anion Gap BUN Creatinine Estimated GFR Glucose POC Glucometer 236 H 211 H Lactic Acid Calcium Magnesium Total Bilirubin AST ALT Alkaline Phosphatase Troponin I NT-Pro-B Natriuret Pep Serum Total Protein Albumin Procalcitonin Urinalys Dipstick Clnc Urine Color Urine Appearance Urine pH Ur Specific Brooks POC Urine Protein Conf Urine Ketones Urine Nitrite Urine Bilirubin Urine Urobilinogen Urine Leukocytes Urine WBC (Auto) Urine RBC (Auto) U Epithel Cells (Auto) Urine Bacteria (Auto) Urine RBC Ur Culture Indicated? Urine Glucose Influenza Type A Ag Influenza Type B Ag RSV (PCR) SARS-CoV-2 (PCR) Slides for Path Review - Vitals & Intake/Output Vital Signs: Vital Signs Temperature 98.0 F 05/17/22 11:57 Pulse Rate 57 L 05/17/22 11:57 Respiratory Rate 18 05/17/22 12:00 Blood Pressure 147/55 05/17/22 11:57 O2 Sat by Pulse Oximetry 96 05/17/22 11:57 Intake & Output: Intake & Output 05/15/22 05/16/22 05/17/22 05/18/22 11:59 11:59 11:59 11:59 Intake Total 1827 1525 Output Total 1875 150 Balance -48 1375 Weight 89 kg - Lab Result Diagrams: 05/17/22 02:15 05/17/22 02:15 Lab Results-Last 24 Hrs: Lab Results-Last 24 Hours 05/16/22 05/16/22 05/16/22 Range/Units 16:05 16:15 16:15 WBC 9.4 (4.0-10.5) x10^3/uL RBC 3.78 L (4.1-5.6) x10^6/uL Hgb 11.0 L (12.5-18.0) g/dL Hct 34.8 L (42-50) % MCV 92.1 (78-100) fL MCH 29.1 (26-32) pg MCHC 31.6 L (32-36) g/dL RDW 14.1 H (11.5-14.0) % Plt Count 128 L (150-450) x10^3/uL MPV 13.0 H (7.5-11.0) fL Gran % 81.9 H (36.0-66.0) % Immature Gran % (Auto) 0.3 (0.00-0.4) % Nucleat RBC Rel Count 0.0 (0.00-0.1) % Eos # (Auto) 0.08 (0-0.5) x10^3/uL Immature Gran # (Auto) 0.03 (0.00-0.03) x10^3u/L Absolute Lymphs (auto) 0.85 L (1.0-4.6) x10^3/uL Absolute Monos (auto) 0.68 (0.0-1.3) x10^3/uL Absolute Nucleated RBC 0.00 (0.00-0.01) x10^3u/L Lymphocytes % 9.0 L (24.0-44.0) % Monocytes % 7.2 (0.0-12.0) % Eosinophils % 0.9 (0.00-5.0) % Basophils % 0.7 (0.0-0.4) % Absolute Granulocytes 7.70 H (1.4-6.9) x10^3/uL Basophils # 0.07 (0-0.4) x10^3/uL Sodium 139 (137-145) mmol/L Potassium 4.9 (3.5-5.1) mmol/L Chloride 108 H (98-107) mmol/L Carbon Dioxide 26 (22-30) mmol/L Anion Gap 10.2 (5-15) MEQ/L BUN 24 H (9-20) mg/dL Creatinine 1.80 H (0.66-1.25) mg/dL Estimated GFR 38.7 ML/MIN Glucose 238 H (74-106) mg/dL POC Glucometer (74 to 106) mg/dL Lactic Acid (0.4-2.0) Calcium 9.4 (8.4-10.2) mg/dL Magnesium 1.5 L (1.6-2.3) mg/dL Total Bilirubin 0.40 (0.2-1.3) mg/dL AST 27 (17-59) U/L ALT 16 (0-50) U/L Alkaline Phosphatase 69 (38-126) U/L Troponin I (0.000-0.034) ng/mL NT-Pro-B Natriuret Pep 925 (0-1800) pg/mL Serum Total Protein 7.9 (6.3-8.2) g/dL Albumin 4.1 (3.5-5.0) g/dL Procalcitonin (0.030-0.080) ng/mL Urinalys Dipstick Clnc Urine Color (YELLOW) Urine Appearance (CLEAR) Urine pH (5-6) Ur Specific Brooks (1.005-1.025) POC Urine Protein Conf (Negative) Urine Ketones (NEGATIVE) Urine Nitrite (NEGATIVE) Urine Bilirubin (NEGATIVE) Urine Urobilinogen (0-1) mg/dL Urine Leukocytes (NEGATIVE) Urine WBC (Auto) (0-5) /HPF Urine RBC (Auto) (0-2) /HPF U Epithel Cells (Auto) (FEW) /HPF Urine Bacteria (Auto) (NEGATIVE) /HPF Urine RBC (0-5) Saw/ul Ur Culture Indicated? Urine Glucose (NEGATIVE) mg/dL Influenza Type A Ag NEGATIVE (NEGATIVE) Influenza Type B Ag NEGATIVE (NEGATIVE) RSV (PCR) NEGATIVE (Negative) SARS-CoV-2 (PCR) POSITIVE A (NEGATIVE) Slides for Path Review YES 05/16/22 05/16/22 05/16/22 Range/Units 16:15 16:15 16:37 WBC (4.0-10.5) x10^3/uL RBC (4.1-5.6) x10^6/uL Hgb (12.5-18.0) g/dL Hct (42-50) % MCV (78-100) fL MCH (26-32) pg MCHC (32-36) g/dL RDW (11.5-14.0) % Plt Count (150-450) x10^3/uL MPV (7.5-11.0) fL Gran % (36.0-66.0) % Immature Gran % (Auto) (0.00-0.4) % Nucleat RBC Rel Count (0.00-0.1) % Eos # (Auto) (0-0.5) x10^3/uL Immature Gran # (Auto) (0.00-0.03) x10^3u/L Absolute Lymphs (auto) (1.0-4.6) x10^3/uL Absolute Monos (auto) (0.0-1.3) x10^3/uL Absolute Nucleated RBC (0.00-0.01) x10^3u/L Lymphocytes % (24.0-44.0) % Monocytes % (0.0-12.0) % Eosinophils % (0.00-5.0) % Basophils % (0.0-0.4) % Absolute Granulocytes (1.4-6.9) x10^3/uL Basophils # (0-0.4) x10^3/uL Sodium (137-145) mmol/L Potassium (3.5-5.1) mmol/L Chloride (98-107) mmol/L Carbon Dioxide (22-30) mmol/L Anion Gap (5-15) MEQ/L BUN (9-20) mg/dL Creatinine (0.66-1.25) mg/dL Estimated GFR ML/MIN Glucose (74-106) mg/dL POC Glucometer (74 to 106) mg/dL Lactic Acid (0.4-2.0) Calcium (8.4-10.2) mg/dL Magnesium (1.6-2.3) mg/dL Total Bilirubin (0.2-1.3) mg/dL AST (17-59) U/L ALT (0-50) U/L Alkaline Phosphatase (38-126) U/L Troponin I 0.016 (0.000-0.034) ng/mL NT-Pro-B Natriuret Pep (0-1800) pg/mL Serum Total Protein (6.3-8.2) g/dL Albumin (3.5-5.0) g/dL Procalcitonin 0.094 H (0.030-0.080) ng/mL Urinalys Dipstick Clnc MAIN LAB Urine Color YELLOW (YELLOW) Urine Appearance CLEAR (CLEAR) Urine pH 7.5 (5-6) Ur Specific Brooks 1.020 (1.005-1.025) POC Urine Protein Conf >=300 A (Negative) Urine Ketones NEGATIVE (NEGATIVE) Urine Nitrite NEGATIVE (NEGATIVE) Urine Bilirubin NEGATIVE (NEGATIVE) Urine Urobilinogen 0.2 (0-1) mg/dL Urine Leukocytes NEGATIVE (NEGATIVE) Urine WBC (Auto) NONE (0-5) /HPF Urine RBC (Auto) NONE (0-2) /HPF U Epithel Cells (Auto) NONE (FEW) /HPF Urine Bacteria (Auto) NONE (NEGATIVE) /HPF Urine RBC TRACE-INTACT A (0-5) Saw/ul Ur Culture Indicated? NO Urine Glucose 500 A (NEGATIVE) mg/dL Influenza Type A Ag (NEGATIVE) Influenza Type B Ag (NEGATIVE) RSV (PCR) (Negative) SARS-CoV-2 (PCR) (NEGATIVE) Slides for Path Review 05/16/22 05/16/22 05/16/22 Range/Units 17:15 21:08 21:22 WBC (4.0-10.5) x10^3/uL RBC (4.1-5.6) x10^6/uL Hgb (12.5-18.0) g/dL Hct (42-50) % MCV (78-100) fL MCH (26-32) pg MCHC (32-36) g/dL RDW (11.5-14.0) % Plt Count (150-450) x10^3/uL MPV (7.5-11.0) fL Gran % (36.0-66.0) % Immature Gran % (Auto) (0.00-0.4) % Nucleat RBC Rel Count (0.00-0.1) % Eos # (Auto) (0-0.5) x10^3/uL Immature Gran # (Auto) (0.00-0.03) x10^3u/L Absolute Lymphs (auto) (1.0-4.6) x10^3/uL Absolute Monos (auto) (0.0-1.3) x10^3/uL Absolute Nucleated RBC (0.00-0.01) x10^3u/L Lymphocytes % (24.0-44.0) % Monocytes % (0.0-12.0) % Eosinophils % (0.00-5.0) % Basophils % (0.0-0.4) % Absolute Granulocytes (1.4-6.9) x10^3/uL Basophils # (0-0.4) x10^3/uL Sodium (137-145) mmol/L Potassium (3.5-5.1) mmol/L Chloride (98-107) mmol/L Carbon Dioxide (22-30) mmol/L Anion Gap (5-15) MEQ/L BUN (9-20) mg/dL Creatinine (0.66-1.25) mg/dL Estimated GFR ML/MIN Glucose (74-106) mg/dL POC Glucometer 159 H (74 to 106) mg/dL Lactic Acid 0.7 (0.4-2.0) Calcium (8.4-10.2) mg/dL Magnesium (1.6-2.3) mg/dL Total Bilirubin (0.2-1.3) mg/dL AST (17-59) U/L ALT (0-50) U/L Alkaline Phosphatase (38-126) U/L Troponin I 0.024 (0.000-0.034) ng/mL NT-Pro-B Natriuret Pep (0-1800) pg/mL Serum Total Protein (6.3-8.2) g/dL Albumin (3.5-5.0) g/dL Procalcitonin (0.030-0.080) ng/mL Urinalys Dipstick Clnc Urine Color (YELLOW) Urine Appearance (CLEAR) Urine pH (5-6) Ur Specific Brooks (1.005-1.025) POC Urine Protein Conf (Negative) Urine Ketones (NEGATIVE) Urine Nitrite (NEGATIVE) Urine Bilirubin (NEGATIVE) Urine Urobilinogen (0-1) mg/dL Urine Leukocytes (NEGATIVE) Urine WBC (Auto) (0-5) /HPF Urine RBC (Auto) (0-2) /HPF U Epithel Cells (Auto) (FEW) /HPF Urine Bacteria (Auto) (NEGATIVE) /HPF Urine RBC (0-5) Saw/ul Ur Culture Indicated? Urine Glucose (NEGATIVE) mg/dL Influenza Type A Ag (NEGATIVE) Influenza Type B Ag (NEGATIVE) RSV (PCR) (Negative) SARS-CoV-2 (PCR) (NEGATIVE) Slides for Path Review 05/17/22 05/17/22 05/17/22 Range/Units 02:15 02:15 02:15 WBC 9.0 (4.0-10.5) x10^3/uL RBC 3.95 L (4.1-5.6) x10^6/uL Hgb 11.6 L (12.5-18.0) g/dL Hct 36.1 L (42-50) % MCV 91.4 (78-100) fL MCH 29.4 (26-32) pg MCHC 32.1 (32-36) g/dL RDW 14.2 H (11.5-14.0) % Plt Count 124 L (150-450) x10^3/uL MPV 12.5 H (7.5-11.0) fL Gran % 90.9 H (36.0-66.0) % Immature Gran % (Auto) 0.6 H (0.00-0.4) % Nucleat RBC Rel Count 0.0 (0.00-0.1) % Eos # (Auto) 0 (0-0.5) x10^3/uL Immature Gran # (Auto) 0.05 H (0.00-0.03) x10^3u/L Absolute Lymphs (auto) 0.56 L (1.0-4.6) x10^3/uL Absolute Monos (auto) 0.16 (0.0-1.3) x10^3/uL Absolute Nucleated RBC 0.00 (0.00-0.01) x10^3u/L Lymphocytes % 6.3 L (24.0-44.0) % Monocytes % 1.8 (0.0-12.0) % Eosinophils % 0.0 (0.00-5.0) % Basophils % 0.4 (0.0-0.4) % Absolute Granulocytes 8.15 H (1.4-6.9) x10^3/uL Basophils # 0.04 (0-0.4) x10^3/uL Sodium 138 (137-145) mmol/L Potassium 4.8 (3.5-5.1) mmol/L Chloride 109 H (98-107) mmol/L Carbon Dioxide 22 (22-30) mmol/L Anion Gap 12.4 (5-15) MEQ/L BUN 23 H (9-20) mg/dL Creatinine 1.68 H (0.66-1.25) mg/dL Estimated GFR 41.9 ML/MIN Glucose 332 H (74-106) mg/dL POC Glucometer (74 to 106) mg/dL Lactic Acid (0.4-2.0) Calcium 9.2 (8.4-10.2) mg/dL Magnesium 1.7 (1.6-2.3) mg/dL Total Bilirubin 0.40 (0.2-1.3) mg/dL AST 24 (17-59) U/L ALT 15 (0-50) U/L Alkaline Phosphatase 62 (38-126) U/L Troponin I 0.021 (0.000-0.034) ng/mL NT-Pro-B Natriuret Pep (0-1800) pg/mL Serum Total Protein 7.4 (6.3-8.2) g/dL Albumin 3.8 (3.5-5.0) g/dL Procalcitonin (0.030-0.080) ng/mL Urinalys Dipstick Clnc Urine Color (YELLOW) Urine Appearance (CLEAR) Urine pH (5-6) Ur Specific Brooks (1.005-1.025) POC Urine Protein Conf (Negative) Urine Ketones (NEGATIVE) Urine Nitrite (NEGATIVE) Urine Bilirubin (NEGATIVE) Urine Urobilinogen (0-1) mg/dL Urine Leukocytes (NEGATIVE) Urine WBC (Auto) (0-5) /HPF Urine RBC (Auto) (0-2) /HPF U Epithel Cells (Auto) (FEW) /HPF Urine Bacteria (Auto) (NEGATIVE) /HPF Urine RBC (0-5) Saw/ul Ur Culture Indicated? Urine Glucose (NEGATIVE) mg/dL Influenza Type A Ag (NEGATIVE) Influenza Type B Ag (NEGATIVE) RSV (PCR) (Negative) SARS-CoV-2 (PCR) (NEGATIVE) Slides for Path Review YES 05/17/22 05/17/22 Range/Units 07:46 11:50 WBC (4.0-10.5) x10^3/uL RBC (4.1-5.6) x10^6/uL Hgb (12.5-18.0) g/dL Hct (42-50) % MCV (78-100) fL MCH (26-32) pg MCHC (32-36) g/dL RDW (11.5-14.0) % Plt Count (150-450) x10^3/uL MPV (7.5-11.0) fL Gran % (36.0-66.0) % Immature Gran % (Auto) (0.00-0.4) % Nucleat RBC Rel Count (0.00-0.1) % Eos # (Auto) (0-0.5) x10^3/uL Immature Gran # (Auto) (0.00-0.03) x10^3u/L Absolute Lymphs (auto) (1.0-4.6) x10^3/uL Absolute Monos (auto) (0.0-1.3) x10^3/uL Absolute Nucleated RBC (0.00-0.01) x10^3u/L Lymphocytes % (24.0-44.0) % Monocytes % (0.0-12.0) % Eosinophils % (0.00-5.0) % Basophils % (0.0-0.4) % Absolute Granulocytes (1.4-6.9) x10^3/uL Basophils # (0-0.4) x10^3/uL Sodium (137-145) mmol/L Potassium (3.5-5.1) mmol/L Chloride (98-107) mmol/L Carbon Dioxide (22-30) mmol/L Anion Gap (5-15) MEQ/L BUN (9-20) mg/dL Creatinine (0.66-1.25) mg/dL Estimated GFR ML/MIN Glucose (74-106) mg/dL POC Glucometer 236 H 211 H (74 to 106) mg/dL Lactic Acid (0.4-2.0) Calcium (8.4-10.2) mg/dL Magnesium (1.6-2.3) mg/dL Total Bilirubin (0.2-1.3) mg/dL AST (17-59) U/L ALT (0-50) U/L Alkaline Phosphatase (38-126) U/L Troponin I (0.000-0.034) ng/mL NT-Pro-B Natriuret Pep (0-1800) pg/mL Serum Total Protein (6.3-8.2) g/dL Albumin (3.5-5.0) g/dL Procalcitonin (0.030-0.080) ng/mL Urinalys Dipstick Clnc Urine Color (YELLOW) Urine Appearance (CLEAR) Urine pH (5-6) Ur Specific Brooks (1.005-1.025) POC Urine Protein Conf (Negative) Urine Ketones (NEGATIVE) Urine Nitrite (NEGATIVE) Urine Bilirubin (NEGATIVE) Urine Urobilinogen (0-1) mg/dL Urine Leukocytes (NEGATIVE) Urine WBC (Auto) (0-5) /HPF Urine RBC (Auto) (0-2) /HPF U Epithel Cells (Auto) (FEW) /HPF Urine Bacteria (Auto) (NEGATIVE) /HPF Urine RBC (0-5) Saw/ul Ur Culture Indicated? Urine Glucose (NEGATIVE) mg/dL Influenza Type A Ag (NEGATIVE) Influenza Type B Ag (NEGATIVE) RSV (PCR) (Negative) SARS-CoV-2 (PCR) (NEGATIVE) Slides for Path Review Micro Results-Entire Visit: Accuchecks Date 05/17/22 Time 11:56 - Radiology Exams Ordered Rad Exams-Entire Visit: Radiology Procedures Category Date Time Status CHEST 1 VIEW (PORTABLE) Stat Exams 05/16/22 16:39 Completed - Procedures and Test Procedures and Tests throughout Hospitalization: Therapy Orders & Screens 05/16/22 20:15 Oxygen Nasal Cannula 2 lpm Comment: 05/16/22 22:45 Respiratory Therapy Assessment DAILY Comment: Diagnosis: COVID-19 - Discharge Discharge Date: 05/17/22 Disposition: Home, Self-Care Condition: Stable Prescriptions: New Nirmatrelvir/Ritonavir [Paxlovid 150-100 mg Pack (Eua)] See Rx Instructions .ROUTE .COMPLEX 5 Days tablet Continue Iron 65 mg PO DAILY Multivitamin [Multivitamins] 1 tab PO DAILY Cyanocobalamin 500 Mcg [Vitamin B-12 500 MCG] 1,000 mcg PO DAILY Metoprolol Tartrate 25 mg [Lopressor 25MG Tab] 25 mg PO BID Hydrochlorothiazide 25 mg [hydroDIURIL 25 MG] 25 mg PO DAILY Hydrocodone/Acetaminophen [Hydrocodone-Acetamin 10-325 mg] 1 tab PO Q6HPRN PRN PRN Reason: Pain Amlodipine Besylate 5 mg [Norvasc 5 mg] 10 mg PO DAILY Isosorbide Mononitrate 30 mg [Imdur 30 MG] 30 mg PO DAILY Apixaban [Eliquis 5 mg Tablet] 5 mg PO BID Methylphenidate 5 mg [Ritalin 5 MG] 10 mg PO 1200 Methylphenidate 5 mg [Ritalin 5 MG] 20 mg PO 0600 Tamsulosin HCl 0.4 mg [Flomax 0.4 MG] 0.4 mg PO DAILY Omeprazole 40 mg PO DAILY Pregabalin 50 mg [Lyrica 50MG] 150 mg PO BID Metformin HCl 500 mg [Glucophage 500 MG] 1,000 mg PO BID Insulin Glargine [Lantus Insulin] 20 unit SQ DAILY Bimatoprost 0.01% [Lumigan 0.01% 2.5 ml] 1 drop OP HS Zinc Gluconate [Zinc] 50 mg PO DAILY Instructions: COVID-19 (DC) Follow up with: JUMA LANE [Primary Care Provider] - 05/31/22 10:00 am Forms: Discharge Instructions
[2022-05-17] MEDS ORDERED: Glucophage 500 MG PO SCH (17:00)
[2022-05-17] MEDS ORDERED: LUMIGAN 0.01% 2.5 ML OP SCH (22:00)
[2022-05-17] MEDS ORDERED: ROCEPHIN 1 Gm-D5w 50 ml Bag** 1 G/50 ML IVPB IV SCH (22:00)
[2022-05-17] MEDS ORDERED: Zithromax 500 MG/ 250 ML NaCl Premix 500 MG/250 ML IVPB IV SCH (22:00)
[2022-05-17] MEDS ORDERED: ELIQUIS 2.5 MG TABLET PO ONE (23:08)
[2022-05-17] MEDS ORDERED: LYRICA 150MG PO ONE (23:11)
[2022-05-18] MEDS ORDERED: Ritalin 5 MG PO SCH ×2 (06:00→13:00)
[2022-05-18] MEDS ORDERED: NON-FORMULARY ITEM (Omeprazole [Omeprazole] 40 MG Capsule.Dr) PO SCH (10:00)
[2022-05-18] MEDS ORDERED: Protonix 40MG Tablet PO SCH (10:00)
[2022-05-18] MEDS ORDERED: NON-FORMULARY ITEM (Iron [Iron] 18 MG Tablet) PO SCH (10:00)
[2022-05-18] MEDS ORDERED: NON-FORMULARY ITEM (Multivitamin [Multivitamins] 1 EACH Tablet) PO SCH (10:00)
== END 2022-05-17 13:55 | disposition home or self-care (01) ==
LOC: ED 15:38 → MED SURG 19:54
PROVIDERS: ADMIT General Practice; ATTEND General Practice
DX: U07.1 COVID-19 (principal); J12.89 Other viral pneumonia; I25.10 Atherosclerotic heart disease of native coronary artery without angina pectoris; I48.91 Unspecified atrial fibrillation; I10 Essential (primary) hypertension; E78.5 Hyperlipidemia, unspecified; E11.9 Type 2 diabetes mellitus without complications; I25.2 Old myocardial infarction; Z79.01 Long term (current) use of anticoagulants; Z79.899 Other long term (current) drug therapy; Z20.828 Contact with and (suspected) exposure to other viral communicable diseases
CPT/HCPCS: 0241U; 36000; 36415; 71045; 80053; 81015; 82947; 83605; 83735; 83880; 84145; 84484; 85025; 87040; 93268; 94760; 96365; 96374; 99284; G0378; J0456; J0696; J1100; J1817; J3475; A9270-GY

== ENCOUNTER 2022-05-27 09:04 | Emergency (ER) | payer MEDICARE ==
[2022-05-27] MEDS ORDERED: Zofran 4 MG/2 ML VIAL IV ONE (09:38)
[2022-05-27] MEDS ORDERED: SUBLIMAZE 100 MCG/2 ML IV ONE (09:38)
[2022-05-27] MEDS ORDERED: BENADRYL 50 MG/ML IV ONE (09:39)
--- NOTE | 2022-05-27 09:42 | ERPHSYRPT ---
- History of Present Illness Time Seen by Provider: 05/27/22 09:38 Historian: patient, family Exam Limitations: no limitations Patient Subjective Stated Complaint: Pt c/o of his hernandez upper abdomen hurting for the past several days, pt began dry heaving today, pt has not eaten for several days or had a bowel movement for several days Triage Nursing Assessment: Pt brougt to the ER by his daughter and , hypertensive, rates abdominal pain as 6/10, dry heaving this AM, unable to eat for several days, states that he usually has a bowel movement every day and he said that he hasn't had one for a few days, pain to the upper abdomen with palpatation, diabetic, still has gallbladder, no appendix,, pulses normal, skin n/w/d, denies chest pain Physician History: 82-year-old with multiple medical problems including coronary artery disease status post CABG, diabetes mellitus, hypertension, hyperlipidemia presented in the ER with chief complaint of upper abdominal pain for last 3 to 4 days moderate intensity, dull aching to sharp, nonradiating without any significant aggravating or relieving factors and getting worse today with associated dry heaving which started today as well. No vomiting or diarrhea reported. Does have some element of constipation. No fever chills or sick contact reported. Timing/Duration: day(s) (4), gradual onset, worse Activities at Onset: rest Quality: dullness, sharpness Abdominal Pain Onset Location: RLQ, LLQ, epigastric, periumbilical Pain Radiation: no radiation Severity of Pain-Max: moderate Severity of Pain-Current: moderate Modifying Factors: Improves With: nothing Associated Symptoms: nausea Previous symptoms: no prior history Allergies/Adverse Reactions: Iodinated Contrast Media [Iodinated Contrast Media - IV Dye] Allergy (Intermediate, Verified 05/16/22 15:48) unknown- hives morphine Allergy (Intermediate, Verified 05/16/22 15:48) confusion and combative hydromorphone HCl [From Dilaudid] Adverse Reaction (Intermediate, Verified 05/16/22 15:48) confusion and combative oxycodone HCl [From OxyContin] Adverse Reaction (Intermediate, Verified 05/16/22 15:48) confusion/ combative Home Medications: Amlodipine Besylate 5 mg [Norvasc 5 mg] 10 mg PO DAILY 05/16/22 [History] Apixaban [Eliquis 5 mg Tablet] 5 mg PO BID 05/16/22 [History] Bimatoprost 0.01% [Lumigan 0.01% 2.5 ml] 1 drop OP HS 05/16/22 [History] Cyanocobalamin 500 Mcg [Vitamin B-12 500 MCG] 1,000 mcg PO DAILY 05/16/22 [History] Hydrochlorothiazide 25 mg [hydroDIURIL 25 MG] 25 mg PO DAILY 05/16/22 [History] Hydrocodone/Acetaminophen [Hydrocodone-Acetamin 10-325 mg] 1 tab PO Q6HPRN PRN 05/16/22 [History] Insulin Glargine [Lantus Insulin] 20 unit SQ DAILY 05/16/22 [History] Iron 65 mg PO DAILY 05/16/22 [History] Isosorbide Mononitrate 30 mg [Imdur 30 MG] 30 mg PO DAILY 05/16/22 [History] Metformin HCl 500 mg [Glucophage 500 MG] 1,000 mg PO BID 05/16/22 [History] Methylphenidate 5 mg [Ritalin 5 MG] 10 mg PO 1200 05/16/22 [History] Metoprolol Tartrate 25 mg [Lopressor 25MG Tab] 25 mg PO BID 05/16/22 [History] Multivitamin [Multivitamins] 1 tab PO DAILY 05/16/22 [History] Omeprazole 40 mg PO DAILY 05/16/22 [History] Pregabalin 50 mg [Lyrica 50MG] 150 mg PO BID 05/16/22 [History] Tamsulosin HCl 0.4 mg [Flomax 0.4 MG] 0.4 mg PO DAILY 05/16/22 [History] Zinc Gluconate [Zinc] 50 mg PO DAILY 05/16/22 [History] Insulin Glargine [Lantus Insulin] 0 unit SQ UD 05/27/22 [History] Hx Tetanus, Diphtheria Vaccination/Date Given: Yes Hx Influenza Vaccination/Date Given: Yes Hx Pneumococcal Vaccination/Date Given: Yes Travel Risk - International Travel Have you traveled outside of the country in past 3 weeks: No - Coronavirus Screening Are you exhibiting any of the following symptoms?: No Close contact with a COVID-19 positive Pt in past 14-21 Days: No - Vaccine Status Have you recieved a Covid-19 vaccination: No - Review of Systems Constitutional: No Symptoms Eyes: No Symptoms Ears, Nose, & Throat: No Symptoms Respiratory: No Symptoms Cardiac: No Symptoms Abdominal/Gastrointestinal: Abdominal Pain, Nausea Genitourinary Symptoms: No Symptoms Musculoskeletal: Arthralgias Skin: No Symptoms Neurological: No Symptoms Endocrine: No Symptoms Hematologic/Lymphatic: No Symptoms Immunological/Allergic: No Symptoms - Past Medical History Pertinent Past Medical History: Yes Neurological History: No Pertinent History ENT History: Cataracts, Glaucoma Cardiac History: Hypertension, Myocardial Infarction (MT), Other Respiratory History: Asthma, COPD, Other Endocrine Medical History: Diabetes Type II Musculoskeletal History: Fractures GI Medical History: GERD, Gallbladder Disease History: Other Psycho-Social History: Depression Male Reproductive Disorders: Prostate Problems Other Medical History: COVID-19, L Wrist Fracture (1982), Open Heart Surgery (1993), LE fracture (unable to recall which side, ), Low Back Pain, LB surgery (1994 with rods placed) - Past Surgical History Past Surgical History: Yes Neuro Surgical History: No Pertinent History Cardiac: CABG, Cardiac Catheterization, Cardiac Stent Respiratory: Chest Surgery Gastrointestinal: Appendectomy, Cholecystectomy Genitourinary: No Pertinent History Musculoskeletal: Orthopedic Surgery Male Surgical History: No Pertinent History Other Surgical History: back surgery, fem pop, steriod injection in various joints, carpal tunnel surgery - Social History Smoking Status: Never smoker How long have you smoked: 1975 Exposure to second hand smoke: No Drug Use: none Patient Lives Alone: No - Nursing Vital Signs Nursing Vital Signs: Initial Vital Signs Temperature 98.0 F 05/27/22 09:16 Pulse Rate 94 H 05/27/22 09:16 Blood Pressure 171/88 05/27/22 09:16 O2 Sat by Pulse Oximetry 98 05/27/22 09:16 Pain Scale Pain Intensity 1 - Physical Exam General Appearance: no apparent distress Eye Exam: PERRL/EOMI Ears, Nose, Throat Exam: normal ENT inspection Neck Exam: normal inspection, full range of motion Respiratory Exam: normal breath sounds, lungs clear Cardiovascular Exam: regular rate/rhythm, normal heart sounds Gastrointestinal/Abdomen Exam: soft, normal bowel sounds, tenderness (Upper abdomen) Back Exam: normal inspection, normal range of motion Neurologic Exam: alert, oriented x 3 Skin Exam: normal color SpO2 Interpretation: normal SpO2: 98 O2 Delivery: Room Air - Course EKG Interpreted by Me: RATE (93), Sinus Rhythm, NORMAL AXIS, NORMAL INTERVALS, Right Bundle Branch Block, Non-specific ST Changes Ordered Tests: Active Orders 24 hr Category Date Time Status IV Insertion STAT Care 05/27/22 09:38 Completed NPO (ED) STAT Care 05/27/22 09:38 Completed ABDOMEN AND PELVIS W/0 CONTRAS [CT] Stat Exams 05/27/22 11:04 Completed CBC W DIFF Stat Lab 05/27/22 09:32 Completed CMP Stat Lab 05/27/22 09:32 Completed CULTURE,URINE Stat Lab 05/27/22 13:19 Received LIPASE Stat Lab 05/27/22 09:32 Completed Lactic Acid Stat Lab 05/27/22 09:45 Completed POCT GLUCOSE Stat Lab 05/27/22 09:18 Completed TROPONIN Q4H Lab 05/27/22 09:32 Completed UA W/RFX CULTURE Stat Lab 05/27/22 13:19 Completed Medication Summary Discontinued Medications Generic Name Dose Route Start Last Admin Trade Name Maribeth PRN Reason Stop Dose Admin Diphenhydramine HCl 12.5 mg 05/27/22 09:39 05/27/22 09:49 Diphenhydramine Hcl 50 Mg/Ml Vial IV 05/27/22 09:40 12.5 mg STAT ONE Administration Diphenhydramine HCl Confirm 05/27/22 09:47 Diphenhydramine Hcl 50 Mg/Ml Vial Administered 05/27/22 09:48 Dose 50 mg .ROUTE .STK-MED ONE Fentanyl Citrate 50 mcg 05/27/22 09:38 05/27/22 09:50 Fentanyl Citrate 100 Mcg/2 Ml* Vial IV 05/27/22 09:39 50 mcg STAT ONE Administration Fentanyl Citrate Confirm 05/27/22 09:48 Fentanyl Citrate 100 Mcg/2 Ml* Vial Administered 05/27/22 09:49 Dose 100 mcg .ROUTE .STK-MED ONE Sodium Chloride 1,000 mls @ 100 mls/hr 05/27/22 09:45 05/27/22 09:50 Sodium Chloride 0.9% 1000 Ml IV 06/26/22 09:44 100 mls/hr .Q10H RUTH Administration Sodium Chloride 1,000 mls @ 999 mls/hr 05/27/22 13:03 05/27/22 14:06 Sodium Chloride 0.9% 1000 Ml IV 05/27/22 14:03 Infused .Q1H1M STA Infusion Sodium Chloride Confirm 05/27/22 09:48 Sodium Chloride 0.9% 1000 Ml Administered 05/27/22 09:49 Dose 1,000 mls @ ud .ROUTE .STK-MED ONE Sodium Chloride Confirm 05/27/22 12:41 Sodium Chloride 0.9% 1000 Ml Administered 05/27/22 12:42 Dose 1,000 mls @ ud .ROUTE .STK-MED ONE Ondansetron HCl 4 mg 05/27/22 09:38 05/27/22 09:50 Ondansetron Hcl 4 Mg/2 Ml Vial IV 05/27/22 09:39 4 mg STAT ONE Administration Ondansetron HCl Confirm 05/27/22 09:47 Ondansetron Hcl 4 Mg/2 Ml Vial Administered 05/27/22 09:48 Dose 4 mg .ROUTE .STK-MED ONE Lab/Rad Data: Laboratory Result Diagrams 05/27/22 09:32 05/27/22 09:32 Laboratory Results 05/27/22 05/27/22 05/27/22 Range/Units 13:19 09:45 09:32 WBC (4.0-10.5) x10^3/uL RBC (4.1-5.6) x10^6/uL Hgb (12.5-18.0) g/dL Hct (42-50) % MCV (78-100) fL MCH (26-32) pg MCHC (32-36) g/dL RDW (11.5-14.0) % Plt Count (150-450) x10^3/uL MPV (7.5-11.0) fL Gran % (36.0-66.0) % Immature Gran % (Auto) (0.00-0.4) % Nucleat RBC Rel Count (0.00-0.1) % Eos # (Auto) (0-0.5) x10^3/uL Immature Gran # (Auto) (0.00-0.03) x10^3u/L Absolute Lymphs (auto) (1.0-4.6) x10^3/uL Absolute Monos (auto) (0.0-1.3) x10^3/uL Absolute Nucleated RBC (0.00-0.01) x10^3u/L Lymphocytes % (24.0-44.0) % Monocytes % (0.0-12.0) % Eosinophils % (0.00-5.0) % Basophils % (0.0-0.4) % Absolute Granulocytes (1.4-6.9) x10^3/uL Basophils # (0-0.4) x10^3/uL Sodium (137-145) mmol/L Potassium (3.5-5.1) mmol/L Chloride (98-107) mmol/L Carbon Dioxide (22-30) mmol/L Anion Gap (5-15) MEQ/L BUN (9-20) mg/dL Creatinine (0.66-1.25) mg/dL Estimated GFR ML/MIN Glucose (74-106) mg/dL POC Glucometer (74 to 106) mg/dL Lactic Acid 0.9 (0.4-2.0) Calcium (8.4-10.2) mg/dL Total Bilirubin (0.2-1.3) mg/dL AST (17-59) U/L ALT (0-50) U/L Alkaline Phosphatase (38-126) U/L Troponin I 0.015 (0.000-0.034) ng/mL Serum Total Protein (6.3-8.2) g/dL Albumin (3.5-5.0) g/dL Lipase (23-300) U/L Urinalys Dipstick Clnc MAIN LAB Urine Color YELLOW (YELLOW) Urine Appearance CLEAR (CLEAR) Urine pH 5.5 (5-6) Ur Specific Partridge >=1.030 A (1.005-1.025) POC Urine Protein Conf >=300 A (Negative) Urine Ketones SMALL-15 A (NEGATIVE) Urine Nitrite NEGATIVE (NEGATIVE) Urine Bilirubin NEGATIVE (NEGATIVE) Urine Urobilinogen 0.2 (0-1) mg/dL Urine Leukocytes NEGATIVE (NEGATIVE) Urine WBC (Auto) 3-5 A (0-5) /HPF Urine RBC (Auto) 16-25 A (0-2) /HPF U Hyaline Cast (Auto) 6-10 A (0-2) /LPF U Epithel Cells (Auto) Not Reportable Urine Bacteria (Auto) RARE (NEGATIVE) /HPF Urine RBC MODERATE A (0-5) Asw/ul Urine Mucus (Auto) SLIGHT A (NEGATIVE) /HPF Ur Culture Indicated? YES Urine Glucose NEGATIVE (NEGATIVE) mg/dL 05/27/22 05/27/22 05/27/22 Range/Units 09:32 09:32 09:18 WBC 9.7 (4.0-10.5) x10^3/uL RBC 3.90 L (4.1-5.6) x10^6/uL Hgb 11.5 L (12.5-18.0) g/dL Hct 35.1 L (42-50) % MCV 90.0 (78-100) fL MCH 29.5 (26-32) pg MCHC 32.8 (32-36) g/dL RDW 13.8 (11.5-14.0) % Plt Count 176 (150-450) x10^3/uL MPV 12.3 H (7.5-11.0) fL Gran % 79.5 H (36.0-66.0) % Immature Gran % (Auto) 0.6 H (0.00-0.4) % Nucleat RBC Rel Count 0.0 (0.00-0.1) % Eos # (Auto) 0.10 (0-0.5) x10^3/uL Immature Gran # (Auto) 0.06 H (0.00-0.03) x10^3u/L Absolute Lymphs (auto) 1.29 (1.0-4.6) x10^3/uL Absolute Monos (auto) 0.47 (0.0-1.3) x10^3/uL Absolute Nucleated RBC 0.00 (0.00-0.01) x10^3u/L Lymphocytes % 13.4 L (24.0-44.0) % Monocytes % 4.9 (0.0-12.0) % Eosinophils % 1.0 (0.00-5.0) % Basophils % 0.6 (0.0-0.4) % Absolute Granulocytes 7.68 H (1.4-6.9) x10^3/uL Basophils # 0.06 (0-0.4) x10^3/uL Sodium 136 L (137-145) mmol/L Potassium 4.7 (3.5-5.1) mmol/L Chloride 108 H (98-107) mmol/L Carbon Dioxide 22 (22-30) mmol/L Anion Gap 11.0 (5-15) MEQ/L BUN 22 H (9-20) mg/dL Creatinine 1.38 H (0.66-1.25) mg/dL Estimated GFR 52.6 ML/MIN Glucose 210 H (74-106) mg/dL POC Glucometer 188 H (74 to 106) mg/dL Lactic Acid (0.4-2.0) Calcium 9.6 (8.4-10.2) mg/dL Total Bilirubin 0.70 (0.2-1.3) mg/dL AST 24 (17-59) U/L ALT 18 (0-50) U/L Alkaline Phosphatase 74 (38-126) U/L Troponin I (0.000-0.034) ng/mL Serum Total Protein 8.0 (6.3-8.2) g/dL Albumin 4.0 (3.5-5.0) g/dL Lipase 71 (23-300) U/L Urinalys Dipstick Clnc Urine Color (YELLOW) Urine Appearance (CLEAR) Urine pH (5-6) Ur Specific Partridge (1.005-1.025) POC Urine Protein Conf (Negative) Urine Ketones (NEGATIVE) Urine Nitrite (NEGATIVE) Urine Bilirubin (NEGATIVE) Urine Urobilinogen (0-1) mg/dL Urine Leukocytes (NEGATIVE) Urine WBC (Auto) (0-5) /HPF Urine RBC (Auto) (0-2) /HPF U Hyaline Cast (Auto) (0-2) /LPF U Epithel Cells (Auto) Urine Bacteria (Auto) (NEGATIVE) /HPF Urine RBC (0-5) Saw/ul Urine Mucus (Auto) (NEGATIVE) /HPF Ur Culture Indicated? Urine Glucose (NEGATIVE) mg/dL - Progress Progress: improved Progress Note: 05/27/22 12:28 82-year-old is evaluated for upper abdominal pain with nausea without vomiting. Patient is given symptomatic treatment. No peritoneal signs. Repeated evaluation pain is resolved. Has normal white count, stable CKD, CT in negative for any acute abdominal pelvic findings but does have some element of constipation. Recommended MiraLAX and stool softeners. No definitive UTI. Recommended increase hydration and outpatient follow-up. Discussed signs symptoms of worsening needing return to ER which he seems understanding. Stable for discharge Counseled pt/family regarding: lab results, diagnosis, need for follow-up, rad results - Departure Departure Disposition: Home Clinical Impression: Abdominal pain, Constipated Condition: Stable Critical Care Time: No Referrals: [facility] [Primary Care Provider] - Follow Up with PCP/3 days Instructions: Severe Abdominal Pain, Adult (DC) Additional Instructions: Take daily MiraLAX and stool softener. Follow-up with primary care for reevaluation. Increase fiber in your diet. Return to ER for worsening abdominal pain, intractable nausea vomiting/fever chills etc. Prescriptions: Polyethylene Glycol 3350 17 gm [Miralax Powder 17GM PACKET] 17 gm PO DAILY #30 packet
[2022-05-27] MEDS ORDERED: Sodium Chloride 0.9% 1000 ML 1,000 ML IV SCH (09:45)
[2022-05-27] MEDS ORDERED: BENADRYL 50 MG/ML ONE (09:47)
[2022-05-27] MEDS ORDERED: Zofran 4 MG/2 ML VIAL ONE (09:47)
[2022-05-27] MEDS ORDERED: SUBLIMAZE 100 MCG/2 ML ONE (09:48)
[2022-05-27] MEDS ORDERED: Sodium Chloride 0.9% 1000 ML 1,000 ML ONE ×2 (09:48→12:41)
[2022-05-27 09:54] LABS: Absolute Neutrophil Ct (ANC) 7.68 x10^3/uL (1.4-6.9); Basophil (Absolute #) 0.06 x10^3/uL (0-0.4); Hematocrit 35.1 % (42-50); Hemoglobin 11.5 g/dL (12.5-18.0); Lymphocyte (Absolute #) 1.29 x10^3/uL (1.0-4.6); Lymphocytes % 13.4 % (24.0-44.0); Mean Corpuscular Hemoglobin 29.5 pg (26-32); Mean Corpuscular Hgb Concent. 32.8 g/dL (32-36); Mean Platelet Volume 12.3 fL (7.5-11.0); Monocyte (Absolute #) 0.47 x10^3/uL (0.0-1.3); Monocytes % 4.9 % (0.0-12.0); Neutrophil % 79.5 % (36.0-66.0); Platelet Count 176 x10^3/uL (150-450); Red Cell Distribution Width 13.8 % (11.5-14.0); White Blood Count 9.7 x10^3/uL (4.0-10.5)
[2022-05-27 10:01] LABS: BILIRUBIN,TOTAL 0.7 mg/dL (0.2-1.3); Calcium 9.6 mg/dL (8.4-10.2); Creatinine 1 1.38 mg/dL (0.66-1.25); EST GLOMERULAR FILTRATION RATE 52.6 ML/MIN; Potassium 4.7 mmol/L (3.5-5.1)
--- NOTE | 2022-05-27 11:40 | XRAY ---
Indication: Abdomen pain, nausea, and fever. Multiple contiguous axial images obtained through the abdomen and pelvis without contrast. Comparison: February 01, 2021 Lung bases demonstrate mild dependent atelectasis and and a few tiny bilateral calcified granulomas. Heart not enlarged again with CABG and cardiac pacer leads. Noncontrasted stomach and bowel loops nonobstructed. Again splenic calcified granulomas, small bilateral renal cysts, appendectomy, and cholecystectomy. There is now mild diffuse scattered colonic fecal debris throughout. No free fluid/air. Remaining liver, pancreas, spleen, adrenal glands, kidneys, ureters, and bladder are unremarkable for noncontrast exam. Again heavy scattered faster calcifications without AAA. Osseous structures again demonstrate osteopenia, mild/moderate multilevel degenerative spondylosis, and L5-S1 posterior fusion surgery with grade 2 spondylolisthesis. Impression: 1. New diffuse fecal stasis. 2. Again chronic findings including bilateral renal cysts, arteriosclerotic disease, chronic bony findings, and old granulomatous disease. 3. Remaining CT abdomen/pelvis without contrast exam is negative.
[2022-05-27 12:29] VITALS: O2SAT 98
[2022-05-27] MEDS ORDERED: Sodium Chloride 0.9% 1000 ML 1,000 ML IV STA (13:03)
[2022-05-27 13:06] VITALS: PULSE 78
[2022-05-27 13:32] LABS: Bacteria RARE /HPF (NEGATIVE); Mucus SLIGHT /HPF (NEGATIVE)
[2022-05-27 13:33] LABS: Appearance CLEAR (CLEAR); Bilirubin NEGATIVE (NEGATIVE); Glucose NEGATIVE (NEGATIVE); Ketones SMALL-15 (NEGATIVE); Ph 5.5 (5-6); Protein,Urine Dip >=300 (Negative); RBC MODERATE Ery/ul (0-5); Specific Gravity >=1.030 (1.005-1.025)
[2022-05-27 13:34] LABS: Dipstick done @ ? MAIN LAB; Nitrite NEGATIVE (NEGATIVE); Urobilinogen 0.2 mg/dL (0-1)
[2022-05-27 13:36] LABS: Urine Cultured Indicated? YES
[2022-05-27 14:02] VITALS: BP 173/79
== END 2022-05-27 14:06 | disposition home or self-care (01) ==
LOC: ED 09:04
DX: K59.00 Constipation, unspecified (principal); R10.10 Upper abdominal pain, unspecified; R11.0 Nausea; E11.9 Type 2 diabetes mellitus without complications; I10 Essential (primary) hypertension; E78.5 Hyperlipidemia, unspecified; Z79.01 Long term (current) use of anticoagulants; Z79.891 Long term (current) use of opiate analgesic; Z79.4 Long term (current) use of insulin; Z79.84 Long term (current) use of oral hypoglycemic drugs; Z28.310 Unvaccinated for COVID-19; Z86.16 Personal history of COVID-19
CPT/HCPCS: 36000; 36415; 74176; 80053; 81015; 82947; 83605; 83690; 84484; 85025; 87086; 96360; 96374; 96375; 99284; J1200; J2405; J3010

== ENCOUNTER 2022-07-08 09:09 | Observation (INO) | payer MEDICARE ==
[2022-07-08] MEDS ORDERED: TYLENOL 325 MG PO STA (10:03)
[2022-07-08 10:09] LABS: Absolute Neutrophil Ct (ANC) 11.55 x10^3/uL (1.4-6.9); BASOPHIL % 0.5 % (0.0-0.4); Basophil (Absolute #) 0.07 x10^3/uL (0-0.4); Eosinophil % 0.4 % (0.00-5.0); Eosinophil (Absolute #) 0.05 x10^3/uL (0-0.5); Hematocrit 31.3 % (42-50); Hemoglobin 10.1 g/dL (12.5-18.0); IMMATURE GRAN # 0.05 x10^3u/L (0.00-0.03); IMMATURE GRAN % 0.4 % (0.00-0.4); Lymphocyte (Absolute #) 0.63 x10^3/uL (1.0-4.6); Lymphocytes % 4.9 % (24.0-44.0); Mean Cell Volume 91.8 fL (78-100); Mean Corpuscular Hemoglobin 29.6 pg (26-32); Mean Corpuscular Hgb Concent. 32.3 g/dL (32-36); Monocyte (Absolute #) 0.49 x10^3/uL (0.0-1.3); Monocytes % 3.8 % (0.0-12.0); Platelet Count 136 x10^3/uL (150-450); Red Blood Count 3.41 x10^6/uL (4.1-5.6); Red Cell Distribution Width 15.9 % (11.5-14.0); White Blood Count 12.8 x10^3/uL (4.0-10.5)
[2022-07-08] MEDS ORDERED: TYLENOL 325 MG ONE (10:16)
--- NOTE | 2022-07-08 10:22 | XRAY ---
Indication: Fever. Comparison: May 16, 2022 Portable chest remains slightly underinflated with new mild patchy left base airspace disease without consolidation/large effusion. Stable left base subsegmental atelectasis/scarring and scattered tiny calcified granulomas. Heart not enlarged again with CABG and tortuous descending aorta.
[2022-07-08 10:34] LABS: ALBUMIN 4.1 g/dL (3.5-5.0); ANION GAP 11.9 MEQ/L (5-15); BILIRUBIN,TOTAL 0.7 mg/dL (0.2-1.3); Calcium 9.3 mg/dL (8.4-10.2); Creatinine 1 1.67 mg/dL (0.66-1.25); EST GLOMERULAR FILTRATION RATE 42.2 ML/MIN; MAGNESIUM 1.6 mg/dL (1.6-2.3); PROCALCITONIN 0.119 ng/mL (0.030-0.080); Potassium 4.7 mmol/L (3.5-5.1); Total Protein 7.9 g/dL (6.3-8.2)
[2022-07-08] MEDS ORDERED: Zithromax 500 MG/ 250 ML NaCl Premix 500 MG/250 ML IVPB IV STA (10:38)
[2022-07-08] MEDS ORDERED: ROCEPHIN 2 Gm-D5w 50ML BAG** 2 G/50 ML IVPB IV STA (10:38)
[2022-07-08 10:51] LABS: INFLUENZA A NEGATIVE (NEGATIVE); INFLUENZA B NEGATIVE (NEGATIVE); RESPIRATORY SYNCTIAL VIRUS NEGATIVE (Negative); SARS-CoV-2 Xpert Express NEGATIVE (NEGATIVE)
[2022-07-08] MEDS ORDERED: ROCEPHIN 2 Gm-D5w 50ML BAG** 2 G/50 ML IVPB IV ONE (11:04)
[2022-07-08] MEDS ORDERED: Zithromax 500 MG/ 250 ML NaCl Premix 500 MG/250 ML IVPB IV ONE (11:19)
--- NOTE | 2022-07-08 12:15 | ERPHSYRPT ---
- History of Present Illness Time Seen by Provider: 07/08/22 10:00 Source: patient, family Exam Limitations: clinical condition Patient Subjective Stated Complaint: Pt woke with a fever, slight confusion, and congestion this morning Triage Nursing Assessment: Pt brought to the ER by his daughter, tachycardic, hypertensive, febrile, denies pain, tired, hernandez lower leg edema, no difficulty breathing, daughter states that this is usually how he starts out with pnuemonia, skin n/h/d, doesn't appear to be in any distress Physician History: 82-year-old with multiple medical problems including hypertension, hyperlipidemia, diabetes mellitus, femoropopliteal bypass on Eliquis presented in the ER with chief complaint of some confusion and having congestion this morning. Daughter reports patient feels confused and more sleepy every time he gets pneumonia. Patient is not in any distress and had a fever of 101 earlier a t home and currently 100.3. Does report some coughing but no shortness of breath. Denies any chest pain, abdominal pain, nausea vomiting. Good historian and history is limited. Timing/Duration: today, gradual onset Fever Severity: moderate Fever Therapy GENERAL SURGERY PHYSICIAN ASSISTANT: none Associated Symptoms: confusion, cough, weakness Allergies/Adverse Reactions: Iodinated Contrast Media [Iodinated Contrast Media - IV Dye] Allergy (Intermediate, Verified 07/08/22 09:40) unknown- hives morphine Allergy (Intermediate, Verified 07/08/22 09:40) confusion and combative hydromorphone HCl [From Dilaudid] Adverse Reaction (Intermediate, Verified 07/08/22 09:40) confusion and combative oxycodone HCl [From OxyContin] Adverse Reaction (Intermediate, Verified 07/08/22 09:40) confusion/ combative Home Medications: Amlodipine Besylate 5 mg [Norvasc 5 mg] 10 mg PO DAILY 05/16/22 [History] Apixaban [Eliquis 5 mg Tablet] 5 mg PO BID 05/16/22 [History] Bimatoprost 0.01% [Lumigan 0.01% 2.5 ml] 1 drop OP HS 05/16/22 [History] Cyanocobalamin 500 Mcg [Vitamin B-12 500 MCG] 1,000 mcg PO DAILY 05/16/22 [History] Hydrochlorothiazide 25 mg [hydroDIURIL 25 MG] 25 mg PO DAILY 05/16/22 [History] Hydrocodone/Acetaminophen [Hydrocodone-Acetamin 10-325 mg] 1 tab PO Q6HPRN PRN 05/16/22 [History] Insulin Glargine [Lantus Insulin] 20 unit SQ QAM 05/16/22 [History] Iron 65 mg PO DAILY 05/16/22 [History] Isosorbide Mononitrate 30 mg [Imdur 30 MG] 30 mg PO DAILY 05/16/22 [History] Metformin HCl 500 mg [Glucophage 500 MG] 1,000 mg PO BID 05/16/22 [History] Methylphenidate 5 mg [Ritalin 5 MG] 20 mg PO QAM 05/16/22 [History] Metoprolol Tartrate 25 mg [Lopressor 25MG Tab] 25 mg PO BID 05/16/22 [History] Multivitamin [Multivitamins] 1 tab PO DAILY 05/16/22 [History] Omeprazole 40 mg PO DAILY 05/16/22 [History] Pregabalin 50 mg [Lyrica 50MG] 150 mg PO BID 05/16/22 [History] Tamsulosin HCl 0.4 mg [Flomax 0.4 MG] 0.4 mg PO DAILY 05/16/22 [History] Zinc Gluconate [Zinc] 50 mg PO DAILY 05/16/22 [History] Insulin Regular, Human [NovoLIN R] 0 unit SQ UD 07/08/22 [History] Hx Tetanus, Diphtheria Vaccination/Date Given: Yes Hx Influenza Vaccination/Date Given: Yes Hx Pneumococcal Vaccination/Date Given: Yes Travel Risk - International Travel Have you traveled outside of the country in past 3 weeks: No - Coronavirus Screening Are you exhibiting any of the following symptoms?: Yes Symptoms: Fever Close contact with a COVID-19 positive Pt in past 14-21 Days: No - Vaccine Status Have you recieved a Covid-19 vaccination: No - Review of Systems Constitutional: Fever, Chills, Fatigue, Weakness Eyes: No Symptoms Ears, Nose, & Throat: Nose Congestion Respiratory: Cough Cardiac: No Symptoms Abdominal/Gastrointestinal: No Symptoms Genitourinary Symptoms: No Symptoms Skin: No Symptoms Endocrine: No Symptoms Hematologic/Lymphatic: No Symptoms - Past Medical History Pertinent Past Medical History: Yes Neurological History: No Pertinent History ENT History: Cataracts, Glaucoma Cardiac History: Hypertension, Myocardial Infarction (NM), Other Respiratory History: Asthma, COPD, Other Endocrine Medical History: Diabetes Type II Musculoskeletal History: Fractures GI Medical History: GERD, Gallbladder Disease History: Other Psycho-Social History: Depression Male Reproductive Disorders: Prostate Problems Other Medical History: COVID-19, L Wrist Fracture (1982), Open Heart Surgery (1993), LE fracture (unable to recall which side, ), Low Back Pain, LB surgery (1994 with rods placed) - Past Surgical History Past Surgical History: Yes Neuro Surgical History: No Pertinent History Cardiac: CABG, Cardiac Catheterization, Cardiac Stent Respiratory: Chest Surgery Gastrointestinal: Appendectomy, Cholecystectomy Genitourinary: No Pertinent History Musculoskeletal: Orthopedic Surgery Male Surgical History: No Pertinent History Other Surgical History: back surgery, fem pop, steriod injection in various jayne ints, carpal tunnel surgery - Social History Smoking Status: Never smoker How long have you smoked: 1975 Exposure to second hand smoke: No Drug Use: none Patient Lives Alone: No - Nursing Vital Signs Nursing Vital Signs: Initial Vital Signs Temperature 100.3 F 07/08/22 09:19 Pulse Rate 124 H 07/08/22 09:19 Blood Pressure 178/83 07/08/22 09:19 O2 Sat by Pulse Oximetry 95 07/08/22 09:19 Pain Scale Pain Intensity 3 - Physical Exam General Appearance: no apparent distress, other (Sleepy but arousable) Eye Exam: PERRL/EOMI ENT Exam: normal ENT inspection, hearing grossly normal Neck Exam: normal inspection, non-tender, supple, full range of motion Respiratory Exam: decreased air movement, rhonchi Cardiovascular/Chest Exam: normal heart sounds, edema, tachycardia Gastrointestinal/Abdominal Exam: soft, non tender, no distention Extremity Exam: non-tender, normal range of motion Neurologic Exam: alert, oriented x 3, cooperative, strategic account executive II-XII nml as tested, sensation nml, No motor deficits Skin Exam: normal color SpO2 Interpretation: normal SpO2: 94 O2 Delivery: Room Air Ordered Tests: Active Orders 24 hr Category Date Time Status IV Insertion STAT Care 07/08/22 10:01 Active CHEST 1 VIEW (PORTABLE) Stat Exams 07/08/22 10:01 Completed BLOOD CULTURE Stat Lab 07/08/22 10:00 Received CBC W DIFF Stat Lab 07/08/22 10:07 Completed CMP Stat Lab 07/08/22 10:07 Completed Lactic Acid Stat Lab 07/08/22 10:01 Completed MAGNESIUM Stat Lab 07/08/22 10:07 Completed NT PRO BNP Stat Lab 07/08/22 10:07 Completed PROCALCITONIN Stat Lab 07/08/22 10:07 Completed UA W/RFX UR CULTURE Stat Lab 07/08/22 10:01 Ordered Transfer Order Routine Transfer 07/08/22 Ordered Medication Summary Discontinued Medications Generic Name Dose Route Start Last Admin Trade Name Maribeth PRN Reason Stop Dose Admin Acetaminophen 975 mg 07/08/22 10:03 07/08/22 10:18 Acetaminophen 325 Mg Tablet PO 07/08/22 10:04 975 mg STAT STA Administration Acetaminophen Confirm 07/08/22 10:16 Acetaminophen 325 Mg Tablet Administered 07/08/22 10:17 Dose 975 mg .ROUTE .STK-MED ONE Ceftriaxone Sodium/Dextrose 2 g in 50 mls @ 100 mls/hr 07/08/22 10:38 07/08/22 11:40 Rocephin 2 Gm-D5w 50ml Bag IV 07/08/22 11:07 Infused STAT STA Infusion Azithromycin 500 mg in 250 mls @ 250 mls/hr 07/08/22 10:38 07/08/22 11:20 Zithromax 500 Mg/ 250 Ml Nacl Premix IV 07/08/22 11:37 250 mls/hr STAT STA 250 mls/hr Administration Ceftriaxone Sodium/Dextrose Confirm 07/08/22 11:04 Rocephin 2 Gm-D5w 50ml Bag Administered 07/08/22 11:05 Dose 2 g in 50 mls @ ud IV .STK-MED ONE Azithromycin Confirm 07/08/22 11:19 Zithromax 500 Mg/ 250 Ml Nacl Premix Administered 07/08/22 11:20 Dose 500 mg in 250 mls @ ud IV .STK-MED ONE Lab/Rad Data: Laboratory Result Diagrams 07/08/22 10:07 07/08/22 10:07 Laboratory Results 0107/08/22 07/08/22 Range/Units 10:07 10:07 10:01 WBC 12.8 H (4.0-10.5) x10^3/uL RBC 3.41 L (4.1-5.6) x10^6/uL Hgb 10.1 L (12.5-18.0) g/dL Hct 31.3 L (42-50) % MCV 91.8 (78-100) fL MCH 29.6 (26-32) pg MCHC 32.3 (32-36) g/dL RDW 15.9 H (11.5-14.0) % Plt Count 136 L (150-450) x10^3/uL MPV 12.0 H (7.5-11.0) fL Gran % 90.0 H (36.0-66.0) % Immature Gran % (Auto) 0.4 (0.00-0.4) % Nucleat RBC Rel Count 0.0 (0.00-0.1) % Eos # (Auto) 0.05 (0-0.5) x10^3/uL Immature Gran # (Auto) 0.05 H (0.00-0.03) x10^3u/L Absolute Lymphs (auto) 0.63 L (1.0-4.6) x10^3/uL Absolute Monos (auto) 0.49 (0.0-1.3) x10^3/uL Absolute Nucleated RBC 0.00 (0.00-0.01) x10^3u/L Lymphocytes % 4.9 L (24.0-44.0) % Monocytes % 3.8 (0.0-12.0) % Eosinophils % 0.4 (0.00-5.0) % Basophils % 0.5 (0.0-0.4) % Absolute Granulocytes 11.55 H (1.4-6.9) x10^3/uL Basophils # 0.07 (0-0.4) x10^3/uL Sodium 138 (137-145) mmol/L Potassium 4.7 (3.5-5.1) mmol/L Chloride 110 H (98-107) mmol/L Carbon Dioxide 21 L (22-30) mmol/L Anion Gap 11.9 (5-15) MEQ/L BUN 19 (9-20) mg/dL Creatinine 1.67 H (0.66-1.25) mg/dL Estimated GFR 42.2 ML/MIN Glucose 94 (74-106) mg/dL Lactic Acid 0.6 (0.4-2.0) Calcium 9.3 (8.4-10.2) mg/dL Magnesium 1.6 (1.6-2.3) mg/dL Total Bilirubin 0.70 (0.2-1.3) mg/dL AST 32 (17-59) U/L ALT 15 (0-50) U/L Alkaline Phosphatase 65 (38-126) U/L NT-Pro-B Natriuret Pep 572 (0-1800) pg/mL Serum Total Protein 7.9 (6.3-8.2) g/dL Albumin 4.1 (3.5-5.0) g/dL Procalcitonin 0.119 H (0.030-0.080) ng/mL Influenza Type A Ag (NEGATIVE) Influenza Type B Ag (NEGATIVE) RSV (PCR) (Negative) SARS-CoV-2 (PCR) (NEGATIVE) Group A Strep Antibody (NEGATIVE) 07/08/22 07/08/22 Range/Units 10:00 10:00 WBC (4.0-10.5) x10^3/uL RBC (4.1-5.6) x10^6/uL Hgb (12.5-18.0) g/dL Hct (42-50) % MCV (78-100) fL MCH (26-32) pg MCHC (32-36) g/dL RDW (11.5-14.0) % Plt Count (150-450) x10^3/uL MPV (7.5-11.0) fL Gran % (36.0-66.0) % Immature Gran % (Auto) (0.00-0.4) % Nucleat RBC Rel Count (0.00-0.1) % Eos # (Auto) (0-0.5) x10^3/uL Immature Gran # (Auto) (0.00-0.03) x10^3u/L Absolute Lymphs (auto) (1.0-4.6) x10^3/uL Absolute Monos (auto) (0.0-1.3) x10^3/uL Absolute Nucleated RBC (0.00-0.01) x10^3u/L Lymphocytes % (24.0-44.0) % Monocytes % (0.0-12.0) % Eosinophils % (0.00-5.0) % Basophils % (0.0-0.4) % Absolute Granulocytes (1.4-6.9) x10^3/uL Basophils # (0-0.4) x10^3/uL Sodium (137-145) mmol/L Potassium (3.5-5.1) mmol/L Chloride (98-107) mmol/L Carbon Dioxide (22-30) mmol/L Anion Gap (5-15) MEQ/L BUN (9-20) mg/dL Creatinine (0.66-1.25) mg/dL Estimated GFR ML/MIN Glucose (74-106) mg/dL Lactic Acid (0.4-2.0) Calcium (8.4-10.2) mg/dL Magnesium (1.6-2.3) mg/dL Total Bilirubin (0.2-1.3) mg/dL AST (17-59) U/L ALT (0-50) U/L Alkaline Phosphatase (38-126) U/L NT-Pro-B Natriuret Pep (0-1800) pg/mL Serum Total Protein (6.3-8.2) g/dL Albumin (3.5-5.0) g/dL Procalcitonin (0.030-0.080) ng/mL Influenza Type A Ag NEGATIVE (NEGATIVE) Influenza Type B Ag NEGATIVE (NEGATIVE) RSV (PCR) NEGATIVE (Negative) SARS-CoV-2 (PCR) NEGATIVE (NEGATIVE) Group A Strep Antibody NOT DETECTED (NEGATIVE) - Progress Progress: unchanged Progress Note: 07/08/22 12:13 82-year-old is evaluated for fever when he woke up this morning along with congestion and cough. Per daughter patient having similar symptoms in the past with pneumonia or UTI. Patient is sleepy but arousable to verbal commands and moving all 4 extremities. Patient has multiple medical problems including hype rtension, diabetes mellitus, femoral-popliteal bypass grafting and on Eliquis. Patient is not in any distress currently. Work-up showed white count of 12.8, normal lactate and procalcitonin of 0.11 and chest x-ray consistent with pneumonic infiltrative process. Started on Rocephin and Zithromax. Urinalysis is currently pending. Discussed with Dr. Salcido, reviewed history, work-up and patient is being admitted to hospitalist service. Discussed with : Brennon Will see patient in: hospital (observation) Counseled pt/family regarding: lab results, diagnosis, need for follow-up, rad results - Departure Departure Disposition: Observation Clinical Impression: Sepsis due to pneumonia Condition: Stable Critical Care Time: No Referrals: JUMA LANE [Primary Care Provider] - Follow up/PCP as directed
[2022-07-08] MEDS ORDERED: TYLENOL 325 MG PO PRN (12:16)
[2022-07-08] MEDS ORDERED: Zofran 4 MG/2 ML VIAL IV PRN (12:16)
[2022-07-08] MEDS ORDERED: PROTONIX 40 MG IV IV SCH (13:30)
[2022-07-08] MEDS: Sodium Chloride 0.9% 1000 ML 1,000 ML IV SCH (13:38)
[2022-07-08] MEDS: DUONEB 0.5-3 MG/3 ml Neb IH SCH ×2 (14:26→17:54)
[2022-07-08] MEDS ORDERED: PROVENTIL 2.5 MG/3 ML NEB IH PRN (15:50)
[2022-07-08 16:28] LABS: Appearance Clear (Clear); Bacteria None Seen /HPF (None Seen); Bilirubin Negative (Negative); Blood Negative (Negative); Epithelial Cells None Seen /HPF (None Seen); Glucose, Urine Negative (Negative); Hyaline Casts NONE SEEN /LPF (0-2); Ketones 15 (Negative); Leukocyte Esterase Negative (Negative); Nitrite Negative (Negative); Ph 7.5 (4.6-8.0); Protein,Urine Dip 100 (Negative); RBC 0-2 /HPF (0-5); Specific Gravity 1.015 (1.005-1.030); Urobilinogen 0.2 mg/dL (0.2); WBC 0-2 /HPF (0-5)
[2022-07-08 16:44] LABS: ADD URINE CULTURE? NO (NO)
[2022-07-08] MEDS: NORVASC 5 MG PO SCH (17:12)
[2022-07-08] MEDS: FEOSOL 325 MG PO SCH (17:12)
[2022-07-08] MEDS: THERAGRAN MULTIVITAMIN PO SCH (17:13)
[2022-07-08] MEDS: Glucophage 500 MG PO SCH (17:13)
[2022-07-08] MEDS: Vitamin B-12 500 MCG PO SCH (17:13)
[2022-07-08] MEDS: Flomax 0.4 MG PO SCH (17:13)
[2022-07-08] MEDS: Imdur 30 MG PO SCH (17:13)
[2022-07-08] MEDS: Lantus Insulin SQ SCH (17:14)
[2022-07-08] MEDS: hydroDIURIL 25 MG PO SCH (17:14)
[2022-07-08] MEDS: Zinc Gluconate 50 MG PO SCH (17:15)
[2022-07-08] MEDS: HUMALOG SQ PRN (21:11)
[2022-07-08] MEDS: LYRICA 150MG PO SCH (21:12)
[2022-07-08] MEDS: ELIQUIS 2.5 MG TABLET PO SCH (21:12)
[2022-07-08] MEDS: Lopressor 25MG Tab PO SCH (21:12)
[2022-07-08] MEDS: LUMIGAN 0.01% 2.5 ML OP SCH (21:16)
[2022-07-08] MEDS ORDERED: Lyrica 50MG PO SCH (22:00)
[2022-07-08] MEDS ORDERED: NON-FORMULARY ITEM (Apixaban*** [Eliquis 5 Mg Tablet***] 5 MG Tablet) PO SCH (22:00)
[2022-07-09] MEDS: HYDROCODONE-ACETAMIN 10-325 MG PO PRN ×2 (04:45→11:26)
[2022-07-09 05:14] LABS: Absolute Neutrophil Ct (ANC) 9.93 x10^3/uL (1.4-6.9); BASOPHIL % 0.4 % (0.0-0.4); Basophil (Absolute #) 0.05 x10^3/uL (0-0.4); Eosinophil % 1.3 % (0.00-5.0); Eosinophil (Absolute #) 0.15 x10^3/uL (0-0.5); Hematocrit 28.3 % (42-50); Hemoglobin 9.1 g/dL (12.5-18.0); IMMATURE GRAN # 0.05 x10^3u/L (0.00-0.03); IMMATURE GRAN % 0.4 % (0.00-0.4); Lymphocyte (Absolute #) 1.22 x10^3/uL (1.0-4.6); Lymphocytes % 10.2 % (24.0-44.0); Mean Cell Volume 91.3 fL (78-100); Mean Corpuscular Hemoglobin 29.4 pg (26-32); Mean Corpuscular Hgb Concent. 32.2 g/dL (32-36); Mean Platelet Volume 11.9 fL (7.5-11.0); Monocyte (Absolute #) 0.51 x10^3/uL (0.0-1.3); Monocytes % 4.3 % (0.0-12.0); Neutrophil % 83.4 % (36.0-66.0); Platelet Count 132 x10^3/uL (150-450); Red Cell Distribution Width 16.1 % (11.5-14.0); White Blood Count 11.9 x10^3/uL (4.0-10.5)
[2022-07-09 05:35] LABS: ALBUMIN 3.4 g/dL (3.5-5.0); ANION GAP 6.9 MEQ/L (5-15); BILIRUBIN,TOTAL 0.5 mg/dL (0.2-1.3); Calcium 8.6 mg/dL (8.4-10.2); Creatinine 1 1.66 mg/dL (0.66-1.25); EST GLOMERULAR FILTRATION RATE 42.5 ML/MIN; Total Protein 6.5 g/dL (6.3-8.2)
[2022-07-09] MEDS: DUONEB 0.5-3 MG/3 ml Neb IH SCH (07:08)
[2022-07-09] MEDS: Zithromax 500 MG/ 250 ML NaCl Premix 500 MG/250 ML IVPB IV SCH (09:13)
[2022-07-09] MEDS: Sodium Chloride 0.9% 1000 ML 1,000 ML IV SCH (09:13)
[2022-07-09] MEDS: FEOSOL 325 MG PO SCH (09:14)
[2022-07-09] MEDS: Lopressor 25MG Tab PO SCH ×2 (09:14→20:14)
[2022-07-09] MEDS: Flomax 0.4 MG PO SCH (09:14)
[2022-07-09] MEDS: NORVASC 5 MG PO SCH (09:14)
[2022-07-09] MEDS: Imdur 30 MG PO SCH (09:14)
[2022-07-09] MEDS: Vitamin B-12 500 MCG PO SCH (09:15)
[2022-07-09] MEDS: hydroDIURIL 25 MG PO SCH (09:16)
[2022-07-09] MEDS: ELIQUIS 2.5 MG TABLET PO SCH ×2 (09:16→20:14)
[2022-07-09] MEDS: Protonix 40MG Tablet PO SCH (09:17)
[2022-07-09] MEDS: THERAGRAN MULTIVITAMIN PO SCH (09:18)
[2022-07-09] MEDS: Glucophage 500 MG PO SCH ×2 (09:18→17:46)
[2022-07-09] MEDS: LYRICA 150MG PO SCH ×2 (09:18→20:14)
[2022-07-09] MEDS: Zinc Gluconate 50 MG PO SCH (09:20)
[2022-07-09] MEDS: Lantus Insulin SQ SCH (09:21)
[2022-07-09] MEDS ORDERED: NON-FORMULARY ITEM (Multivitamin [Multivitamins] 1 EACH Tablet) PO SCH (10:00)
[2022-07-09] MEDS ORDERED: NON-FORMULARY ITEM (Omeprazole [Omeprazole] 40 MG Capsule.Dr) PO SCH (10:00)
[2022-07-09] MEDS ORDERED: Ritalin 5 MG PO SCH (10:00)
[2022-07-09] MEDS ORDERED: NON-FORMULARY ITEM (Iron [Iron] 18 MG Tablet) PO SCH (10:00)
[2022-07-09] MEDS: ROCEPHIN 2 Gm-D5w 50ML BAG** 2 G/50 ML IVPB IV SCH (11:26)
[2022-07-09] MEDS: HUMALOG SQ PRN (12:39)
[2022-07-09] MEDS: LUMIGAN 0.01% 2.5 ML OP SCH (20:14)
[2022-07-10] MEDS: Sodium Chloride 0.9% 1000 ML 1,000 ML IV SCH (05:51)
[2022-07-10 06:25] LABS: Absolute Neutrophil Ct (ANC) 5.18 x10^3/uL (1.4-6.9); BASOPHIL % 0.9 % (0.0-0.4); Basophil (Absolute #) 0.06 x10^3/uL (0-0.4); Eosinophil % 3.6 % (0.00-5.0); Eosinophil (Absolute #) 0.25 x10^3/uL (0-0.5); Hematocrit 26.4 % (42-50); Hemoglobin 8.3 g/dL (12.5-18.0); IMMATURE GRAN # 0.04 x10^3u/L (0.00-0.03); IMMATURE GRAN % 0.6 % (0.00-0.4); Lymphocyte (Absolute #) 1.09 x10^3/uL (1.0-4.6); Lymphocytes % 15.5 % (24.0-44.0); Mean Cell Volume 92.3 fL (78-100); Mean Corpuscular Hgb Concent. 31.4 g/dL (32-36); Mean Platelet Volume 12.3 fL (7.5-11.0); Monocyte (Absolute #) 0.42 x10^3/uL (0.0-1.3); Neutrophil % 73.4 % (36.0-66.0); Platelet Count 119 x10^3/uL (150-450); Red Blood Count 2.86 x10^6/uL (4.1-5.6); Red Cell Distribution Width 15.7 % (11.5-14.0)
[2022-07-10 06:45] LABS: ANION GAP 7.1 MEQ/L (5-15); Calcium 8.4 mg/dL (8.4-10.2); Creatinine 1 1.45 mg/dL (0.66-1.25); EST GLOMERULAR FILTRATION RATE 49.6 ML/MIN
[2022-07-10 07:20] VITALS: BP 155/71
[2022-07-10] MEDS: HYDROCODONE-ACETAMIN 10-325 MG PO PRN (07:37)
[2022-07-10 07:44] VITALS: PULSE 79; O2SAT 96
[2022-07-10] MEDS: Glucophage 500 MG PO SCH (08:26)
--- NOTE | 2022-07-10 10:11 | PCM.DS ---
Discharge Summary Date of Admission: 07/08/22 12:10 Admitting Physician: CHRIS SALCIDO Primary Care Provider: JUMA LANE Allergies Allergies Iodinated Contrast Media [Iodinated Contrast Media - IV Dye] Allergy (Intermediate, Verified 07/08/22 09:40) unknown- hives morphine Allergy (Intermediate, Verified 07/08/22 09:40) confusion and combative hydromorphone HCl [From Dilaudid] Adverse Reaction (Intermediate, Verified 07/08/22 09:40) confusion and combative oxycodone HCl [From OxyContin] Adverse Reaction (Intermediate, Verified 07/08/22 09:40) confusion/ combative Hospital Summary - Hospital Course Hospital Course: patient admitted and under the care of Dr Salcido for pneumonia/sepsis. he is afebrile, wbc normal and he is on room air today. he states he is able to ambulate in his room and feels great and would like to go home today, doing well clinically. patient has mild chronic anemia, exacerbated by IV fluids since admission and appears dilutional, no bleeding is present. - Vitals & Intake/Output Vital Signs: Vital Signs Temperature 98.2 F 07/10/22 07:18 Pulse Rate 79 07/10/22 07:43 Respiratory Rate 16 07/10/22 07:43 Blood Pressure 155/71 07/10/22 07:18 O2 Sat by Pulse Oximetry 96 07/10/22 07:43 Intake & Output: Intake & Output 07/07/22 07/08/22 07/09/22 07/10/22 11:59 11:59 11:59 11:59 Intake Total 1640 2480 Output Total 1100 2975 Balance 540 -495 Weight 96.162 kg 97.1 kg 90.4 kg - Lab Result Diagrams: 07/10/22 05:37 07/10/22 05:37 Lab Results-Last 24 Hrs: Lab Results-Last 24 Hours 07/09/22 07/09/22 07/09/22 Range/Units 10:52 16:52 21:00 WBC (4.0-10.5) x10^3/uL RBC (4.1-5.6) x10^6/uL Hgb (12.5-18.0) g/dL Hct (42-50) % MCV (78-100) fL MCH (26-32) pg MCHC (32-36) g/dL RDW (11.5-14.0) % Plt Count (150-450) x10^3/uL MPV (7.5-11.0) fL Gran % (36.0-66.0) % Immature Gran % (Auto) (0.00-0.4) % Nucleat RBC Rel Count (0.00-0.1) % Eos # (Auto) (0-0.5) x10^3/uL Immature Gran # (Auto) (0.00-0.03) x10^3u/L Absolute Lymphs (auto) (1.0-4.6) x10^3/uL Absolute Monos (auto) (0.0-1.3) x10^3/uL Absolute Nucleated RBC (0.00-0.01) x10^3u/L Lymphocytes % (24.0-44.0) % Monocytes % (0.0-12.0) % Eosinophils % (0.00-5.0) % Basophils % (0.0-0.4) % Absolute Granulocytes (1.4-6.9) x10^3/uL Basophils # (0-0.4) x10^3/uL Sodium (137-145) mmol/L Potassium (3.5-5.1) mmol/L Chloride (98-107) mmol/L Carbon Dioxide (22-30) mmol/L Anion Gap (5-15) MEQ/L BUN (9-20) mg/dL Creatinine (0.66-1.25) mg/dL Estimated GFR ML/MIN Glucose (74-106) mg/dL POC Glucometer 215 H 148 H 160 H (74 to 106) mg/dL Calcium (8.4-10.2) mg/dL 07/10/22 07/10/22 07/10/22 Range/Units 05:37 05:37 07:02 WBC 7.0 (4.0-10.5) x10^3/uL RBC 2.86 L (4.1-5.6) x10^6/uL Hgb 8.3 L (12.5-18.0) g/dL Hct 26.4 L (42-50) % MCV 92.3 (78-100) fL MCH 29.0 (26-32) pg MCHC 31.4 L (32-36) g/dL RDW 15.7 H (11.5-14.0) % Plt Count 119 L (150-450) x10^3/uL MPV 12.3 H (7.5-11.0) fL Gran % 73.4 H (36.0-66.0) % Immature Gran % (Auto) 0.6 H (0.00-0.4) % Nucleat RBC Rel Count 0.0 (0.00-0.1) % Eos # (Auto) 0.25 (0-0.5) x10^3/uL Immature Gran # (Auto) 0.04 H (0.00-0.03) x10^3u/L Absolute Lymphs (auto) 1.09 (1.0-4.6) x10^3/uL Absolute Monos (auto) 0.42 (0.0-1.3) x10^3/uL Absolute Nucleated RBC 0.00 (0.00-0.01) x10^3u/L Lymphocytes % 15.5 L (24.0-44.0) % Monocytes % 6.0 (0.0-12.0) % Eosinophils % 3.6 (0.00-5.0) % Basophils % 0.9 (0.0-0.4) % Absolute Granulocytes 5.18 (1.4-6.9) x10^3/uL Basophils # 0.06 (0-0.4) x10^3/uL Sodium 138 (137-145) mmol/L Potassium 4.0 (3.5-5.1) mmol/L Chloride 110 H (98-107) mmol/L Carbon Dioxide 25 (22-30) mmol/L Anion Gap 7.1 (5-15) MEQ/L BUN 14 (9-20) mg/dL Creatinine 1.45 H (0.66-1.25) mg/dL Estimated GFR 49.6 ML/MIN Glucose 97 (74-106) mg/dL POC Glucometer 77 (74 to 106) mg/dL Calcium 8.4 (8.4-10.2) mg/dL Micro Results-Entire Visit: Microbiology 07/08/22 10:12 Blood Culture - Preliminary Blood NO GROWTH TO DATE 07/08/22 10:00 Blood Culture - Preliminary Blood NO GROWTH TO DATE Accuchecks Date 07/10/22 Date 07/09/22 Time 11:16 - Radiology Exams Ordered Rad Exams-Entire Visit: Radiology Procedures Category Date Time Status CHEST 1 VIEW (PORTABLE) Stat Exams 07/08/22 10:01 Completed - Procedures and Test Procedures and Tests throughout Hospitalization: Therapy Orders & Screens 07/08/22 12:33 Respiratory Therapy Assessment DAILY Comment: Diagnosis: pneumonia 07/09/22 20:31 BiPap/CPAP ROUTINE Comment: Diagnosis: pneumonia Discharge Exam General Appearance: no apparent distress Neurologic Exam: alert, oriented x 3 Respiratory Exam: normal breath sounds, lungs clear, No respiratory distress Cardiovascular Exam: regular rate/rhythm, normal heart sounds Gastrointestinal/Abdomen Exam: soft, No tenderness, No mass Extremity Exam: normal inspection, normal range of motion Skin Exam: normal color, warm, dry Final Diagnosis/Problem List - Final Discharge Diagnosis/Problem (1) Sepsis due to pneumonia Current Visit: Yes Status: Acute Assessment & Plan: normal bp, no oxygen requirement. no fever and white count is normal. home today on po augmentin Code(s): J18.9 - PNEUMONIA, UNSPECIFIED ORGANISM; A41.9 - SEPSIS, UNSPECIFIED ORGANISM (2) Community acquired pneumonia Current Visit: No Status: Acute Code(s): J18.9 - PNEUMONIA, UNSPECIFIED ORGANISM - Discharge Disposition: Home, Self-Care Condition: Stable Prescriptions: New Amox Tr/Potass Clav. 500 mg [Augmentin 500-125 Tablet] 500 mg PO TID #21 tablet Continue Iron 65 mg PO DAILY Multivitamin [Multivitamins] 1 tab PO DAILY Cyanocobalamin 500 Mcg [Vitamin B-12 500 MCG] 1,000 mcg PO DAILY Metoprolol Tartrate 25 mg [Lopressor 25MG Tab] 25 mg PO BID Hydrochlorothiazide 25 mg [hydroDIURIL 25 MG] 25 mg PO DAILY Hydrocodone/Acetaminophen [Hydrocodone-Acetamin 10-325 mg] 1 tab PO Q6HPRN PRN PRN Reason: Pain Amlodipine Besylate 5 mg [Norvasc 5 mg] 10 mg PO DAILY Isosorbide Mononitrate 30 mg [Imdur 30 MG] 30 mg PO DAILY Apixaban [Eliquis 5 mg Tablet] 5 mg PO BID Methylphenidate 5 mg [Ritalin 5 MG] 20 mg PO QAM Tamsulosin HCl 0.4 mg [Flomax 0.4 MG] 0.4 mg PO DAILY Omeprazole 40 mg PO DAILY Pregabalin 50 mg [Lyrica 50MG] 150 mg PO BID Metformin HCl 500 mg [Glucophage 500 MG] 1,000 mg PO BID Insulin Glargine [Lantus Insulin] 20 unit SQ QAM Bimatoprost 0.01% [Lumigan 0.01% 2.5 ml] 1 drop OP HS Zinc Gluconate [Zinc] 50 mg PO DAILY Insulin Regular, Human [NovoLIN R] 0 unit SQ UD Albuterol 2.5 mg/3 ml Neb [Proventil 2.5 mg/3 ml Neb] 1 neb IH DAILY PRN PRN PRN Reason: Shortness Of Breath Follow up with: JUMA LANE [Primary Care Provider] - Follow up/PCP as directed
[2022-07-10] MEDS: THERAGRAN MULTIVITAMIN PO SCH (11:09)
[2022-07-10] MEDS: NORVASC 5 MG PO SCH (11:09)
[2022-07-10] MEDS: Lopressor 25MG Tab PO SCH (11:09)
[2022-07-10] MEDS: Flomax 0.4 MG PO SCH (11:09)
[2022-07-10] MEDS: Vitamin B-12 500 MCG PO SCH (11:10)
[2022-07-10] MEDS: LYRICA 150MG PO SCH (11:10)
[2022-07-10] MEDS: ELIQUIS 2.5 MG TABLET PO SCH (11:10)
[2022-07-10] MEDS: Protonix 40MG Tablet PO SCH (11:10)
[2022-07-10] MEDS: hydroDIURIL 25 MG PO SCH (11:10)
[2022-07-10] MEDS: Imdur 30 MG PO SCH (11:10)
[2022-07-10] MEDS: FEOSOL 325 MG PO SCH (11:10)
[2022-07-10] MEDS: ROCEPHIN 2 Gm-D5w 50ML BAG** 2 G/50 ML IVPB IV SCH (11:11)
[2022-07-10] MEDS: Zinc Gluconate 50 MG PO SCH (11:11)
[2022-07-10] MEDS: Zithromax 500 MG/ 250 ML NaCl Premix 500 MG/250 ML IVPB IV SCH (11:12)
[2022-07-10] MEDS: Lantus Insulin SQ SCH (11:12)
== END 2022-07-10 11:48 | disposition home or self-care (01) ==
LOC: ED 09:09 → MED SURG 12:10
PROVIDERS: ADMIT Family Medicine; ATTEND Family Medicine
DX: J18.9 Pneumonia, unspecified organism (principal); A41.9 Sepsis, unspecified organism; I10 Essential (primary) hypertension; E78.5 Hyperlipidemia, unspecified; E11.9 Type 2 diabetes mellitus without complications; R60.0 Localized edema; D64.9 Anemia, unspecified; Z79.01 Long term (current) use of anticoagulants; Z20.828 Contact with and (suspected) exposure to other viral communicable diseases; Z79.899 Other long term (current) drug therapy
CPT/HCPCS: 0241U; 36000; 36415; 71045; 80048; 80053; 81001; 82947; 83605; 83735; 83880; 84145; 85025; 87040; 87651; 93268; 94640; 94760; 96365; 96367; 99285; G0378; J0456; J0696; J1817; A9270-GY

== ENCOUNTER 2022-08-11 10:28 | Emergency (ER) | payer MEDICARE ==
[2022-08-11] MEDS ORDERED: BABY ASPIRIN 81 MG CHEW PO ONE (11:00)
[2022-08-11] MEDS ORDERED: DECADRON 10MG INJ. IV ONE (11:01)
[2022-08-11] MEDS ORDERED: DUONEB 0.5-3 MG/3 ml Neb IH ONE ×2 (11:01→11:09)
[2022-08-11] MEDS ORDERED: DECADRON 10MG INJ. ONE (11:03)
--- NOTE | 2022-08-11 11:25 | XRAY ---
Indication: Cough. Pneumonia. Comparison: July 08, 2022 Portable chest better inflated again with a few bilateral calcified granulomas. New minimal left base subsegmental atelectasis/scarring. No focal infiltrate, consolidation, or large effusion. Heart not enlarged again with CABG, hilar calcified nodes, and tortuous descending aorta. Bony thorax intact again with osteopenia. Impression: Nonacute chest with chronic features.
[2022-08-11 11:30] LABS: Absolute Neutrophil Ct (ANC) 4.87 x10^3/uL (1.4-6.9); BASOPHIL % 1.1 % (0.0-0.4); Basophil (Absolute #) 0.07 x10^3/uL (0-0.4); Eosinophil % 3.5 % (0.00-5.0); Eosinophil (Absolute #) 0.23 x10^3/uL (0-0.5); Hematocrit 34.4 % (42-50); Hemoglobin 10.8 g/dL (12.5-18.0); IMMATURE GRAN # 0.04 x10^3u/L (0.00-0.03); IMMATURE GRAN % 0.6 % (0.00-0.4); Lymphocyte (Absolute #) 1.01 x10^3/uL (1.0-4.6); Lymphocytes % 15.4 % (24.0-44.0); Mean Cell Volume 93.2 fL (78-100); Mean Corpuscular Hemoglobin 29.3 pg (26-32); Mean Corpuscular Hgb Concent. 31.4 g/dL (32-36); Mean Platelet Volume 11.2 fL (7.5-11.0); Monocyte (Absolute #) 0.35 x10^3/uL (0.0-1.3); Monocytes % 5.3 % (0.0-12.0); Neutrophil % 74.1 % (36.0-66.0); Platelet Count 170 x10^3/uL (150-450); Red Blood Count 3.69 x10^6/uL (4.1-5.6); Red Cell Distribution Width 15.6 % (11.5-14.0); White Blood Count 6.6 x10^3/uL (4.0-10.5)
[2022-08-11 11:51] LABS: ALBUMIN 4.3 g/dL (3.5-5.0); ALKALINE PHOSPHATASE 66 U/L (38-126); ANION GAP 14.4 MEQ/L (5-15); BLOOD UREA NITROGEN 13 mg/dL (9-20); CHLORIDE 108 mmol/L (98-107); Calcium 9.6 mg/dL (8.4-10.2); Carbon Dioxide 22 mmol/L (22-30); Creatinine 1 1.45 mg/dL (0.66-1.25); EST GLOMERULAR FILTRATION RATE 49.6 ML/MIN; Glucose 208 mg/dL (74-106); Potassium 4.8 mmol/L (3.5-5.1); SGOT/AST 27 U/L (17-59); SGPT/ALT 14 U/L (0-50); SODIUM 140 mmol/L (137-145); TROPONIN < 0.012 ng/mL (0.000-0.034)
[2022-08-11] MEDS ORDERED: Lasix 40 MG/4 ML IV ONE (12:13)
[2022-08-11] MEDS ORDERED: Lasix 40 MG/4 ML ONE (12:19)
[2022-08-11 12:27] LABS: INFLUENZA A NEGATIVE (NEGATIVE); INFLUENZA B NEGATIVE (NEGATIVE); RESPIRATORY SYNCTIAL VIRUS NEGATIVE (Negative); SARS-CoV-2 Xpert Express NEGATIVE (NEGATIVE)
--- NOTE | 2022-08-11 13:10 | ERPHSYRPT ---
- History of Present Illness Time Seen by Provider: 08/11/22 10:51 Source: patient Exam Limitations: no limitations Patient Subjective Stated Complaint: Pt's states, "I think he's got pneumonia, he's been coughing and sneezing and has a runny nose." Pt states, "My nose just keeps running". Triage Nursing Assessment: Pt presents to ER with complaints of mild shortness of breath, intermittent cough, and runny nose. Pt is alert and oriented x 3. Able to ambulate with slow gait to ER Room 3, at bedside. concerned about possible pneumonia. Pt is alert and oriented x 3. Skin is pink, warm, and dry. Respirations are easy and clear lung sounds noted. States has had white sputum and runny snot. Blows nose upon triage. Denies pain, just states is weak and has had a decreased appetite. Physician History: Patient is here for cough, cold, congestion. No other falls or trauma. Patient's is concerned about early pneumonia. Patient's legs are also somewhat swollen. Patient does have a history of CHF, other heart issues. 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 No current chest pain, shortness of breath, nausea, vomiting. No other atypical signs of STEMI, NSTEMI, anginal equivalents Severity: moderate Allergies/Adverse Reactions: Iodinated Contrast Media [Iodinated Contrast Media - IV Dye] Allergy (Intermediate, Verified 08/11/22 11:02) unknown- hives morphine Allergy (Intermediate, Verified 08/11/22 11:02) confusion and combative hydromorphone HCl [From Dilaudid] Adverse Reaction (Intermediate, Verified 08/11/22 11:02) confusion and combative oxycodone HCl [From OxyContin] Adverse Reaction (Intermediate, Verified 08/11/22 11:02) confusion/ combative Home Medications: Amlodipine Besylate 5 mg [Norvasc 5 mg] 10 mg PO DAILY 05/16/22 [History] Apixaban [Eliquis 5 mg Tablet] 5 mg PO BID 05/16/22 [History] Bimatoprost 0.01% [Lumigan 0.01% 2.5 ml] 1 drop OP HS 05/16/22 [History] Cyanocobalamin 500 Mcg [Vitamin B-12 500 MCG] 1,000 mcg PO DAILY 05/16/22 [History] Hydrochlorothiazide 25 mg [hydroDIURIL 25 MG] 25 mg PO DAILY 05/16/22 [History] Hydrocodone/Acetaminophen [Hydrocodone-Acetamin 10-325 mg] 1 tab PO Q6HPRN PRN 05/16/22 [History] Insulin Glargine [Lantus Insulin] 20 unit SQ QAM 05/16/22 [History] Iron 65 mg PO DAILY 05/16/22 [History] Isosorbide Mononitrate 30 mg [Imdur 30 MG] 30 mg PO DAILY 05/16/22 [History] Metformin HCl 500 mg [Glucophage 500 MG] 1,000 mg PO BID 05/16/22 [History] Methylphenidate 5 mg [Ritalin 5 MG] 20 mg PO QAM 05/16/22 [History] Metoprolol Tartrate 25 mg [Lopressor 25MG Tab] 25 mg PO BID 05/16/22 [History] Multivitamin [Multivitamins] 1 tab PO DAILY 05/16/22 [History] Omeprazole 40 mg PO DAILY 05/16/22 [History] Pregabalin 50 mg [Lyrica 50MG] 150 mg PO BID 05/16/22 [History] Tamsulosin HCl 0.4 mg [Flomax 0.4 MG] 0.4 mg PO DAILY 05/16/22 [History] Zinc Gluconate [Zinc] 50 mg PO DAILY 05/16/22 [History] Albuterol 2.5 mg/3 ml Neb [Proventil 2.5 mg/3 ml Neb] 1 neb IH DAILY PRN PRN 07/08/22 [History] Insulin Regular, Human [NovoLIN R] 0 unit SQ UD 07/08/22 [History] Hx Tetanus, Diphtheria Vaccination/Date Given: Yes Hx Influenza Vaccination/Date Given: Yes Hx Pneumococcal Vaccination/Date Given: Yes Immunizations Up to Date: No Travel Risk - International Travel Have you traveled outside of the country in past 3 weeks: No - Coronavirus Screening Are you exhibiting any of the following symptoms?: Yes Symptoms: Cough: New Onset, Shortness of Breath Close contact with a COVID-19 positive Pt in past 14-21 Days: No - Vaccine Status Have you recieved a Covid-19 vaccination: No - Review of Systems Constitutional: No Fever, No Chills Eyes: No Symptoms Ears, Nose, & Throat: Nose Congestion, Nose Discharge Respiratory: Cough Cardiac: No Chest Pain, No Edema, No Syncope Abdominal/Gastrointestinal: No Abdominal Pain, No Nausea, No Vomiting, No Diarrhea Genitourinary Symptoms: No Dysuria Musculoskeletal: No Back Pain, No Neck Pain Skin: No Rash Neurological: No Dizziness, No Focal Weakness, No Sensory Changes Psychological: No Symptoms Endocrine: No Symptoms All Other Systems: Reviewed and Negative - Past Medical History Pertinent Past Medical History: Yes Neurological History: No Pertinent History ENT History: Cataracts, Glaucoma Cardiac History: Hypertension, Myocardial Infarction (VT), Other Respiratory History: Asthma, COPD, Other Endocrine Medical History: Diabetes Type II Musculoskeletal History: Fractures GI Medical History: GERD, Gallbladder Disease History: Other Psycho-Social History: Depression Male Reproductive Disorders: Prostate Problems Other Medical History: COVID-19, L Wrist Fracture (1982), Open Heart Surgery (1993), LE fracture (unable to recall which side, ), Low Back Pain, LB surgery (1994 with rods placed) - Past Surgical History Past Surgical History: Yes Neuro Surgical History: No Pertinent History Cardiac: CABG, Cardiac Catheterization, Cardiac Stent Respiratory: Chest Surgery Gastrointestinal: Appendectomy, Cholecystectomy Genitourinary: No Pertinent History Musculoskeletal: Orthopedic Surgery Male Surgical History: No Pertinent History Other Surgical History: back surgery, fem pop, steriod injection in various joints, carpal tunnel surgery - Social History Smoking Status: Never smoker How long have you smoked: 1975 Exposure to second hand smoke: No Drug Use: none Patient Lives Alone: No - Nursing Vital Signs Nursing Vital Signs: Initial Vital Signs Temperature 97 F 08/11/22 10:55 Pulse Rate 91 H 08/11/22 10:55 Respiratory Rate 20 08/11/22 10:55 Blood Pressure 162/87 08/11/22 10:55 O2 Sat by Pulse Oximetry 88 L 08/11/22 10:55 Pain Scale Pain Intensity 0 - Physical Exam General Appearance: no apparent distress, alert Eye Exam: PERRL/EOMI, eyes nml inspection Ears, Nose, Throat Exam: normal ENT inspection, TMs normal, pharynx normal, m oist mucous membranes Neck Exam: normal inspection, non-tender, supple, full range of motion Respiratory Exam: normal breath sounds, lungs clear, No respiratory distress Cardiovascular Exam: regular rate/rhythm, normal heart sounds, normal peripheral pulses Gastrointestinal/Abdomen Exam: soft, normal bowel sounds, No tenderness, No mass Back Exam: normal inspection, normal range of motion, No CVA tenderness, No vertebral tenderness Extremity Exam: normal inspection, normal range of motion, pelvis stable Neurologic Exam: alert, oriented x 3, cooperative, normal mood/affect, nml cerebellar function, nml station & gait, sensation nml, No motor deficits Skin Exam: normal color, warm, dry, No rash Lymphatic Exam: No adenopathy SpO2: 99 - Course Nursing assessment & vital signs reviewed: Yes EKG Interpreted by Me: Sinus Rhythm Ordered Tests: Active Orders 24 hr Category Date Time Status EKG-ER Only STAT Care 08/11/22 10:57 Completed IV Insertion STAT Care 08/11/22 11:18 Completed CHEST 1 VIEW (PORTABLE) Stat Exams 08/11/22 11:07 Completed CBC W DIFF Stat Lab 08/11/22 11:20 Completed CMP Stat Lab 08/11/22 11:20 Completed NT PRO BNPII Stat Lab 08/11/22 11:20 Completed TROPONIN Q4H Lab 08/11/22 11:20 Completed Medication Summary Discontinued Medications Generic Name Dose Route Start Last Admin Trade Name Freq PRN Reason Stop Dose Admin Albuterol/Ipratropium 3 ml 08/11/22 11:01 08/11/22 11:11 Ipratropium/Albuterol Sulfate 3 Ml Ampul.Neb IH 08/11/22 11:02 3 ml STAT ONE Administration Albuterol/Ipratropium Confirm 08/11/22 11:09 Ipratropium/Albuterol Sulfate 3 Ml Ampul.Neb Administered 08/11/22 11:10 Dose 3 ml IH .STK-MED ONE Aspirin 324 mg 08/11/22 11:00 08/11/22 11:04 Aspirin 81 Mg Tab.Chew PO 08/11/22 11:01 324 mg STAT ONE Administration Dexamethasone Sodium Phosphate 8 mg 08/11/22 11:01 08/11/22 11:04 Dexamethasone Sod Phosphate 10 Mg/Ml IV 08/11/22 11:02 8 mg STAT ONE Administration Dexamethasone Sodium Phosphate Confirm 08/11/22 11:03 Dexamethasone Sod Phosphate 10 Mg/Ml Administered 08/11/22 11:04 Dose 10 mg .ROUTE .STK-MED ONE Furosemide 40 mg 08/11/22 12:13 08/11/22 12:21 Furosemide 40 Mg/4 Ml Vial IV 08/11/22 12:14 40 mg STAT ONE Administration Furosemide Confirm 08/11/22 12:19 Furosemide 40 Mg/4 Ml Vial Administered 08/11/22 12:20 Dose 40 mg .ROUTE .K-MED ONE Lab/Rad Data: Laboratory Result Diagrams 08/11/22 11:20 08/11/22 11:20 Laboratory Results 08/11/22 08/11/22 08/11/22 Range/Units 11:39 11:20 11:20 WBC (4.0-10.5) x10^3/uL RBC (4.1-5.6) x10^6/uL Hgb (12.5-18.0) g/dL Hct (42-50) % MCV (78-100) fL MCH (26-32) pg MCHC (32-36) g/dL RDW (11.5-14.0) % Plt Count (150-450) x10^3/uL MPV (7.5-11.0) fL Gran % (36.0-66.0) % Immature Gran % (Auto) (0.00-0.4) % Nucleat RBC Rel Count (0.00-0.1) % Eos # (Auto) (0-0.5) x10^3/uL Immature Gran # (Auto) (0.00-0.03) x10^3u/L Absolute Lymphs (auto) (1.0-4.6) x10^3/uL Absolute Monos (auto) (0.0-1.3) x10^3/uL Absolute Nucleated RBC (0.00-0.01) x10^3u/L Lymphocytes % (24.0-44.0) % Monocytes % (0.0-12.0) % Eosinophils % (0.00-5.0) % Basophils % (0.0-0.4) % Absolute Granulocytes (1.4-6.9) x10^3/uL Basophils # (0-0.4) x10^3/uL Sodium 140 (137-145) mmol/L Potassium 4.8 (3.5-5.1) mmol/L Chloride 108 H (98-107) mmol/L Carbon Dioxide 22 (22-30) mmol/L Anion Gap 14.4 (5-15) MEQ/L BUN 13 (9-20) mg/dL Creatinine 1.45 H (0.66-1.25) mg/dL Estimated GFR 49.6 ML/MIN Glucose 208 H (74-106) mg/dL Calcium 9.6 (8.4-10.2) mg/dL Total Bilirubin 0.50 (0.2-1.3) mg/dL AST 27 (17-59) U/L ALT 14 (0-50) U/L Alkaline Phosphatase 66 (38-126) U/L Troponin I < 0.012 (0.000-0.034) ng/mL NT-Pro-B Natriuret Pep 2090 (<300) pg/mL Serum Total Protein 8.0 (6.3-8.2) g/dL Albumin 4.3 (3.5-5.0) g/dL Influenza Type A Ag NEGATIVE (NEGATIVE) Influenza Type B Ag NEGATIVE (NEGATIVE) RSV (PCR) NEGATIVE (Negative) SARS-CoV-2 (PCR) NEGATIVE (NEGATIVE) 08/11/22 Range/Units 11:20 WBC 6.6 (4.0-10.5) x10^3/uL RBC 3.69 L (4.1-5.6) x10^6/uL Hgb 10.8 L (12.5-18.0) g/dL Hct 34.4 L (42-50) % MCV 93.2 (78-100) fL MCH 29.3 (26-32) pg MCHC 31.4 L (32-36) g/dL RDW 15.6 H (11.5-14.0) % Plt Count 170 (150-450) x10^3/uL MPV 11.2 H (7.5-11.0) fL Gran % 74.1 H (36.0-66.0) % Immature Gran % (Auto) 0.6 H (0.00-0.4) % Nucleat RBC Rel Count 0.0 (0.00-0.1) % Eos # (Auto) 0.23 (0-0.5) x10^3/uL Immature Gran # (Auto) 0.04 H (0.00-0.03) x10^3u/L Absolute Lymphs (auto) 1.01 (1.0-4.6) x10^3/uL Absolute Monos (auto) 0.35 (0.0-1.3) x10^3/uL Absolute Nucleated RBC 0.00 (0.00-0.01) x10^3u/L Lymphocytes % 15.4 L (24.0-44.0) % Monocytes % 5.3 (0.0-12.0) % Eosinophils % 3.5 (0.00-5.0) % Basophils % 1.1 (0.0-0.4) % Absolute Granulocytes 4.87 (1.4-6.9) x10^3/uL Basophils # 0.07 (0-0.4) x10^3/uL Sodium (137-145) mmol/L Potassium (3.5-5.1) mmol/L Chloride (98-107) mmol/L Carbon Dioxide (22-30) mmol/L Anion Gap (5-15) MEQ/L BUN (9-20) mg/dL Creatinine (0.66-1.25) mg/dL Estimated GFR ML/MIN Glucose (74-106) mg/dL Calcium (8.4-10.2) mg/dL Total Bilirubin (0.2-1.3) mg/dL AST (17-59) U/L ALT (0-50) U/L Alkaline Phosphatase (38-126) U/L Troponin I (0.000-0.034) ng/mL NT-Pro-B Natriuret Pep (<300) pg/mL Serum Total Protein (6.3-8.2) g/dL Albumin (3.5-5.0) g/dL Influenza Type A Ag (NEGATIVE) Influenza Type B Ag (NEGATIVE) RSV (PCR) (Negative) SARS-CoV-2 (PCR) (NEGATIVE) - Progress Progress: improved Progress Note: 08/11/22 14:18 differential diagnosis includes: PNA, STEMI, NSTEMI, other infection, musculoskeletal pain, pneumothorax - We'll obtain basic labs, fluids, EKG, troponin, chest x-ray - I feel comfortable with one time negative troponin given symptoms have improved and started greater then 6 hours ago. - EKG shows no ST changes - my read. See full read below. - O2 saturations consistently greater than 95%. - CXR shows no pneumonia, pneumothorax - my read - no other obvious lab abnormalities BNP is elevated at over 2000. Has been elevated in the past. Patient is on Lasix, history of CHF. Otherwise he is not hypoxic, no signs of other volume o verload. We did give 40 of Lasix IV here. Otherwise plan to treat patient as bronchitis going home. Z-Lloyd, steroids. Low suspicion for acute CHF exacerbation. Patient will call his channel marketing manager today or tomorrow for close follow-up and recheck. I did discuss all this with the . States und erstanding they will return here for new or changing symptoms. - Departure Departure Disposition: Home Clinical Impression: Bronchitis, COPD exacerbation Condition: Stable Critical Care Time: No Referrals: FLORIDALMA AVILES NP [Primary Care Provider] - Follow up/PCP as directed Instructions: Chronic Obstructive Pulmonary Disease, Cough, Adult (DC) Prescriptions: Prednisone 10 mg [Deltasone 10 mg] 40 mg PO DAILY 5 Days #100 tablet Azithromycin 250 mg [Zithromax 250 MG TABLET] 250 mg PO ZPACK #6 tablet
[2022-08-11 13:13] VITALS: BP 177/78; PULSE 89
[2022-08-11 14:19] VITALS: O2SAT 99
== END 2022-08-11 13:32 | disposition home or self-care (01) ==
LOC: ED 10:28
DX: J40 Bronchitis, not specified as acute or chronic (principal); J44.1 Chronic obstructive pulmonary disease with (acute) exacerbation; R05.9 Cough, unspecified; R09.81 Nasal congestion; R60.0 Localized edema; I10 Essential (primary) hypertension; E11.9 Type 2 diabetes mellitus without complications; Z79.01 Long term (current) use of anticoagulants; Z79.891 Long term (current) use of opiate analgesic; Z79.52 Long term (current) use of systemic steroids; Z79.4 Long term (current) use of insulin; Z79.84 Long term (current) use of oral hypoglycemic drugs; Z28.310 Unvaccinated for COVID-19; Z86.16 Personal history of COVID-19; Z20.828 Contact with and (suspected) exposure to other viral communicable diseases
CPT/HCPCS: 0241U; 36000; 36415; 71045; 80053; 83880; 84484; 85025; 93005; 94640; 96374; 96375; 99284; J1100; J1940; A9270-GY

== ENCOUNTER 2022-10-02 12:52 | Emergency (ER) | payer MEDICARE, SELFPAY ==
--- NOTE | 2022-10-02 13:00 | ERPHSYRPT ---
- History of Present Illness Time Seen by Provider: 10/02/22 12:59 Source: patient, family Exam Limitations: no limitations Physician History: This is an 82-year-old white male diabetic patient of nurse practitioner Dolores Chapman. He presents with a few day history of increasing confusion. He denies pain of any kind. Family states that his confusion has increased and typically when this occurs he has either a pneumonia brewing or urinary tract infection. Patient can stay that over the last few days he has generally not been feeling well. He is weak. He has had no fever. He had no nausea vomiting or diarrhea. Patient is an insulin-dependent diabetic, has gastroesophageal reflux disease hypertension, coronary disease, COPD and asthma. Patient has not fallen or hit his head. Timing/Duration: day(s) (Last few days) Severity: mild (To moderate) Associated Symptoms: weakness, No nausea, No vomiting, No abdominal pain, No shortness of breath, No chest pain, No fever Allergies/Adverse Reactions: Iodinated Contrast Media [Iodinated Contrast Media - IV Dye] Allergy (Intermediate, Verified 10/02/22 13:08) unknown- hives morphine Allergy (Intermediate, Verified 10/02/22 13:08) confusion and combative hydromorphone HCl [From Dilaudid] Adverse Reaction (Intermediate, Verified 10/02/22 13:08) confusion and combative oxycodone HCl [From OxyContin] Adverse Reaction (Intermediate, Verified 10/02/22 13:08) confusion/ combative Home Medications: Amlodipine Besylate 5 mg [Norvasc 5 mg] 10 mg PO DAILY 05/16/22 [History] Apixaban [Eliquis 5 mg Tablet] 5 mg PO BID 05/16/22 [History] Bimatoprost 0.01% [Lumigan 0.01% 2.5 ml] 1 drop OP HS 05/16/22 [History] Cyanocobalamin 500 Mcg [Vitamin B-12 500 MCG] 1,000 mcg PO DAILY 05/16/22 [History] Hydrochlorothiazide 25 mg [hydroDIURIL 25 MG] 25 mg PO DAILY 05/16/22 [History] Hydrocodone/Acetaminophen [Hydrocodone-Acetamin 10-325 mg] 1 tab PO Q6HPRN PRN 05/16/22 [History] Insulin Glargine [Lantus Insulin] 20 unit SQ QAM 05/16/22 [History] Iron 65 mg PO DAILY 05/16/22 [History] Isosorbide Mononitrate 30 mg [Imdur 30 MG] 30 mg PO DAILY 05/16/22 [History] Metformin HCl 500 mg [Glucophage 500 MG] 1,000 mg PO BID 05/16/22 [History] Methylphenidate 5 mg [Ritalin 5 MG] 20 mg PO QAM 05/16/22 [History] Metoprolol Tartrate 25 mg [Lopressor 25MG Tab] 25 mg PO BID 05/16/22 [History] Multivitamin [Multivitamins] 1 tab PO DAILY 05/16/22 [History] Omeprazole 40 mg PO DAILY 05/16/22 [History] Pregabalin 50 mg [Lyrica 50MG] 150 mg PO BID 05/16/22 [History] Tamsulosin HCl 0.4 mg [Flomax 0.4 MG] 0.4 mg PO DAILY 05/16/22 [History] Zinc Gluconate [Zinc] 50 mg PO DAILY 05/16/22 [History] Albuterol 2.5 mg/3 ml Neb [Proventil 2.5 mg/3 ml Neb] 1 neb IH DAILY PRN PRN 07/08/22 [History] Insulin Regular, Human [NovoLIN R] 0 unit SQ UD 07/08/22 [History] Hx Tetanus, Diphtheria Vaccination/Date Given: Yes Hx Influenza Vaccination/Date Given: Yes Hx Pneumococcal Vaccination/Date Given: Yes Travel Risk - International Travel Have you traveled outside of the country in past 3 weeks: No - Coronavirus Screening Are you exhibiting any of the following symptoms?: No Close contact with a COVID-19 positive Pt in past 14-21 Days: No - Vaccine Status Have you recieved a Covid-19 vaccination: No - Review of Systems Constitutional: Weakness Eyes: No Symptoms Ears, Nose, & Throat: No Symptoms Respiratory: No Symptoms Cardiac: No Symptoms Abdominal/Gastrointestinal: No Symptoms Genitourinary Symptoms: No Symptoms Musculoskeletal: No Symptoms Skin: No Symptoms Neurological: Other (Confusion) Psychological: No No Symptoms Endocrine: No Symptoms Hematologic/Lymphatic: No Symptoms Immunological/Allergic: No Symptoms All Other Systems: Reviewed and Negative - Past Medical History Pertinent Past Medical History: Yes Neurological History: No Pertinent History ENT History: Cataracts, Glaucoma Cardiac History: Hypertension, Myocardial Infarction ([place]), Other Respiratory History: Asthma, COPD, Other Endocrine Medical History: Diabetes Type II Musculoskeletal History: Fractures GI Medical History: GERD, Gallbladder Disease History: Other Psycho-Social History: Depression Male Reproductive Disorders: Prostate Problems Other Medical History: COVID-19, L Wrist Fracture (1982), Open Heart Surgery (1993), LE fracture (unable to recall which side, ), Low Back Pain, LB surgery (1994 with rods placed) - Past Surgical History Past Surgical History: Yes Neuro Surgical History: No Pertinent History Cardiac: CABG, Cardiac Catheterization, Cardiac Stent Respiratory: Chest Surgery Gastrointestinal: Appendectomy, Cholecystectomy Genitourinary: No Pertinent History Musculoskeletal: Orthopedic Surgery Male Surgical History: No Pertinent History Other Surgical History: back surgery, fem pop, steriod injection in various j oints, carpal tunnel surgery - Social History Smoking Status: Never smoker How long have you smoked: 1975 Exposure to second hand smoke: No Drug Use: none Patient Lives Alone: No - Nursing Vital Signs Nursing Vital Signs: Initial Vital Signs Temperature 98.1 F 10/02/22 13:10 Pulse Rate 61 10/02/22 13:10 Respiratory Rate 17 10/02/22 13:10 Blood Pressure 184/70 10/02/22 13:10 O2 Sat by Pulse Oximetry 97 10/02/22 13:10 Pain Scale Pain Intensity 0 - Physical Exam General Appearance: no apparent distress, alert, thin Eye Exam: PERRL/EOMI, eyes nml inspection Ears, Nose, Throat Exam: normal ENT inspection, moist mucous membranes, ph aryngeal erythema Neck Exam: normal inspection, non-tender Respiratory Exam: normal breath sounds, lungs clear, airway intact, No chest tenderness, No respiratory distress Cardiovascular Exam: regular rate/rhythm, normal heart sounds, normal peripheral pulses Gastrointestinal/Abdomen Exam: soft, normal bowel sounds, No tenderness Rectal Exam: not done Back Exam: normal inspection, normal range of motion, No CVA tenderness, No vertebral tenderness Extremity Exam: normal inspection, normal range of motion, pelvis stable Neurologic Exam: alert, cooperative, soft drink powder mixer II-XII nml as tested, normal mood/a ffect, nml cerebellar function, nml station & gait, sensation nml, confusion Skin Exam: normal color, warm, dry Lymphatic Exam: No adenopathy SpO2 Interpretation: normal O2 Delivery: Room Air - Course Nursing assessment & vital signs reviewed: Yes EKG Interpreted by Me: RATE Ordered Tests: Active Orders 24 hr Category Date Time Status EKG-ER Only STAT Care 10/02/22 13:23 Active IV Insertion STAT Care 10/02/22 13:23 Active NPO (ED) STAT Care 10/02/22 13:23 Active Pulse Oximetry (ED) STAT Care 10/02/22 13:23 Active CHEST 1 VIEW (PORTABLE) Stat Exams 10/02/22 13:23 Taken HEAD WITHOUT CONTRAST [CT] Stat Exams 10/02/22 13:23 Completed BLOOD CULTURE Stat Lab 10/02/22 13:40 Received CBC W DIFF Stat Lab 10/02/22 13:00 Completed CMP Stat Lab 10/02/22 13:00 Completed Lactic Acid Stat Lab 10/02/22 13:23 Completed MONO SCREEN Stat Lab 10/02/22 13:00 Completed UA W/RFX UR CULTURE Stat Lab 10/02/22 16:14 Completed Medication Summary Generic Name Dose Route Start Last Admin Trade Name Freq PRN Reason Stop Dose Admin Sodium Chloride 1,000 mls @ 100 mls/hr 10/02/22 13:30 10/02/22 17:05 Sodium Chloride 0.9% 1000 Ml IV 11/01/22 13:29 Infused .Q10H RUTH Infusion Lab/Rad Data: Laboratory Result Diagrams 10/02/22 13:00 10/02/22 13:00 Laboratory Results 10/02/22 10/02/22 10/02/22 Range/Units 16:14 13:40 13:23 WBC (4.0-10.5) x10^3/uL RBC (4.1-5.6) x10^6/uL Hgb (12.5-18.0) g/dL Hct (42-50) % MCV (78-100) fL MCH (26-32) pg MCHC (32-36) g/dL RDW (11.5-14.0) % Plt Count (150-450) x10^3/uL MPV (7.5-11.0) fL Gran % (36.0-66.0) % Immature Gran % (Auto) (0.00-0.4) % Nucleat RBC Rel Count (0.00-0.1) % Eos # (Auto) (0-0.5) x10^3/uL Immature Gran # (Auto) (0.00-0.03) x10^3u/L Absolute Lymphs (auto) (1.0-4.6) x10^3/uL Absolute Monos (auto) (0.0-1.3) x10^3/uL Absolute Nucleated RBC (0.00-0.01) x10^3u/L Lymphocytes % (24.0-44.0) % Monocytes % (0.0-12.0) % Eosinophils % (0.00-5.0) % Basophils % (0.0-0.4) % Absolute Granulocytes (1.4-6.9) x10^3/uL Basophils # (0-0.4) x10^3/uL Sodium (137-145) mmol/L Potassium (3.5-5.1) mmol/L Chloride (98-107) mmol/L Carbon Dioxide (22-30) mmol/L Anion Gap (5-15) MEQ/L BUN (9-20) mg/dL Creatinine (0.66-1.25) mg/dL Estimated GFR ML/MIN Glucose (74-106) mg/dL Lactic Acid 0.7 (0.4-2.0) Calcium (8.4-10.2) mg/dL Total Bilirubin (0.2-1.3) mg/dL AST (17-59) U/L ALT (0-50) U/L Alkaline Phosphatase (38-126) U/L Serum Total Protein (6.3-8.2) g/dL Albumin (3.5-5.0) g/dL Urine Color Yellow (Yellow) Urine Appearance Clear (Clear) Urine pH 6.0 (4.6-8.0) Ur Specific [place] 1.015 (1.005-1.030) Urine Protein 300 A (Negative) Urine Glucose (UA) 250 A (Negative) mg/dL Urine Ketones Negative (Negative) Urine Blood Negative (Negative) Urine Nitrite Negative (Negative) Urine Bilirubin Negative (Negative) Urine Urobilinogen 0.2 (0.2) mg/dL Ur Leukocyte Esterase Negative (Negative) U Hyaline Cast (Auto) 3-5 A (0-2) /LPF Urine Microscopic RBC 0-2 (0-5) /HPF Urine Microscopic WBC 0-2 (0-5) /HPF Ur Epithelial Cells None Seen (None Seen) /HPF Urine Bacteria None Seen (None Seen) /HPF Urine Culture Reflexed NO (NO) Monoscreen (NEGATIVE) Influenza Type A Ag NEGATIVE (NEGATIVE) Influenza Type B Ag NEGATIVE (NEGATIVE) RSV (PCR) NEGATIVE (NEGATIVE) SARS-CoV-2 (PCR) NEGATIVE (NEGATIVE) 10/02/22 10/02/22 10/02/22 Range/Units 13:00 13:00 13:00 WBC 6.0 (4.0-10.5) x10^3/uL RBC 3.83 L (4.1-5.6) x10^6/uL Hgb 10.6 L (12.5-18.0) g/dL Hct 33.8 L (42-50) % MCV 88.3 (78-100) fL MCH 27.7 (26-32) pg MCHC 31.4 L (32-36) g/dL RDW 14.6 H (11.5-14.0) % Plt Count 121 L (150-450) x10^3/uL MPV 11.9 H (7.5-11.0) fL Gran % 70.1 H (36.0-66.0) % Immature Gran % (Auto) 0.5 H (0.00-0.4) % Nucleat RBC Rel Count 0.0 (0.00-0.1) % Eos # (Auto) 0.28 (0-0.5) x10^3/uL Immature Gran # (Auto) 0.03 (0.00-0.03) x10^3u/L Absolute Lymphs (auto) 1.11 (1.0-4.6) x10^3/uL Absolute Monos (auto) 0.28 (0.0-1.3) x10^3/uL Absolute Nucleated RBC 0.00 (0.00-0.01) x10^3u/L Lymphocytes % 18.5 L (24.0-44.0) % Monocytes % 4.7 (0.0-12.0) % Eosinophils % 4.7 (0.00-5.0) % Basophils % 1.5 (0.0-0.4) % Absolute Granulocytes 4.22 (1.4-6.9) x10^3/uL Basophils # 0.09 (0-0.4) x10^3/uL Sodium 140 (137-145) mmol/L Potassium 4.2 (3.5-5.1) mmol/L Chloride 106 (98-107) mmol/L Carbon Dioxide 29 (22-30) mmol/L Anion Gap 8.9 (5-15) MEQ/L BUN 17 (9-20) mg/dL Creatinine 1.50 H (0.66-1.25) mg/dL Estimated GFR 47.7 ML/MIN Glucose 169 H (74-106) mg/dL Lactic Acid (0.4-2.0) Calcium 9.2 (8.4-10.2) mg/dL Total Bilirubin 0.50 (0.2-1.3) mg/dL AST 25 (17-59) U/L ALT 10 (0-50) U/L Alkaline Phosphatase 61 (38-126) U/L Serum Total Protein 7.1 (6.3-8.2) g/dL Albumin 3.7 (3.5-5.0) g/dL Urine Color (Yellow) Urine Appearance (Clear) Urine pH (4.6-8.0) Ur Specific [place] (1.005-1.030) Urine Protein (Negative) Urine Glucose (UA) (Negative) mg/dL Urine Ketones (Negative) Urine Blood (Negative) Urine Nitrite (Negative) Urine Bilirubin (Negative) Urine Urobilinogen (0.2) mg/dL Ur Leukocyte Esterase (Negative) U Hyaline Cast (Auto) (0-2) /LPF Urine Microscopic RBC (0-5) /HPF Urine Microscopic WBC (0-5) /HPF Ur Epithelial Cells (None Seen) /HPF Urine Bacteria (None Seen) /HPF Urine Culture Reflexed (NO) Monoscreen NEGATIVE (NEGATIVE) Influenza Type A Ag (NEGATIVE) Influenza Type B Ag (NEGATIVE) RSV (PCR) (NEGATIVE) SARS-CoV-2 (PCR) (NEGATIVE) - Progress Progress: improved Progress Note: 10/02/22 16:08 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 No acute intracranial abnormality. The impression was provided by the radiologist and I reviewed the impression. 10/02/22 16:20 Chest x-ray was interpreted by me. I see no acute cardiopulmonary processes 10/02/22 17:51 Clinically, the patient was reexamined and he states he is feeling much better. He has no chest pain. He is not short of breath. He has no abdominal pain. This patient's medical issue is 1 of moderate complexity. The level of complexity and the work-up performed was based on review of the patient's past medical history, additional history obtained from the patient's daughter, medication list, drug allergy list, history of present illness and physical findings on examination. The work-up performed includes a placement of an intravenous line and infusion of normal saline solution, urinalysis, CBC, twelve-lead EKG, CMP, flu swabs, CT scan of the head, and chest x-ray. There are no acute findings on today's work-up. The results were reviewed by me and discussed with the patient and his daughter. The patient wants to go home and feeling well enough to do so. His vital signs are stable. He does have a mild, chronic anemia. Patient will be discharged to home and he will follow-up with his primary care physician on 10/04/2022 to make arrangements for follow-up appointment in the next 3 to 5 days. Counseled pt/family regarding: lab results, diagnosis, need for follow-up, rad results Medical Desision Making - Independent Historian Additional History obtained from: Child (Patient's daughter) - Discussion of managment Reviewed:: Test results Agreed on:: Treatment plan, need for follow-up - Diagnostic Testing Diagnostic test were ordered, analyzed, and reviewed by me: Yes Radiological Interpretation: Reviewed by me, Teleradiologist Report - Risk of complications Low Risk: Low risk of morbidity from additional dx testing or treatment - Departure Departure Disposition: Home Clinical Impression: Confusion, Chronic anemia Condition: Stable Critical Care Time: No Referrals: FLORIDALMA CHAPMAN NP [Primary Care Provider] - Follow up/PCP as directed Additional Instructions: Drink plenty of clear liquid before advancing your diet. Take all your medications as prescribed. Avoid any sedating medications for the next 48 hours. Follow-up with your primary care provider on 10/04/2022 to make arranges for follow-up appointment in the next 3 to 5 days.
[2022-10-02] MEDS ORDERED: Sodium Chloride 0.9% 1000 ML 1,000 ML IV SCH (13:30)
[2022-10-02] MEDS ORDERED: Sodium Chloride 0.9% 1000 ML 1,000 ML ONE (13:33)
[2022-10-02 13:38] LABS: Absolute Neutrophil Ct (ANC) 4.22 x10^3/uL (1.4-6.9); BASOPHIL % 1.5 % (0.0-0.4); Basophil (Absolute #) 0.09 x10^3/uL (0-0.4); Eosinophil % 4.7 % (0.00-5.0); Eosinophil (Absolute #) 0.28 x10^3/uL (0-0.5); Hematocrit 33.8 % (42-50); Hemoglobin 10.6 g/dL (12.5-18.0); IMMATURE GRAN # 0.03 x10^3u/L (0.00-0.03); IMMATURE GRAN % 0.5 % (0.00-0.4); Lymphocyte (Absolute #) 1.11 x10^3/uL (1.0-4.6); Lymphocytes % 18.5 % (24.0-44.0); Mean Cell Volume 88.3 fL (78-100); Mean Corpuscular Hemoglobin 27.7 pg (26-32); Mean Corpuscular Hgb Concent. 31.4 g/dL (32-36); Mean Platelet Volume 11.9 fL (7.5-11.0); Monocyte (Absolute #) 0.28 x10^3/uL (0.0-1.3); Monocytes % 4.7 % (0.0-12.0); Neutrophil % 70.1 % (36.0-66.0); Platelet Count 121 x10^3/uL (150-450); Red Blood Count 3.83 x10^6/uL (4.1-5.6); Red Cell Distribution Width 14.6 % (11.5-14.0)
[2022-10-02 13:54] LABS: ALBUMIN 3.7 g/dL (3.5-5.0); ANION GAP 8.9 MEQ/L (5-15); BILIRUBIN,TOTAL 0.5 mg/dL (0.2-1.3); Calcium 9.2 mg/dL (8.4-10.2); Creatinine 1 1.5 mg/dL (0.66-1.25); EST GLOMERULAR FILTRATION RATE 47.7 ML/MIN; Potassium 4.2 mmol/L (3.5-5.1); Total Protein 7.1 g/dL (6.3-8.2)
[2022-10-02 14:23] VITALS: BP 160/61
[2022-10-02 14:47] LABS: INFLUENZA A NEGATIVE (NEGATIVE); INFLUENZA B NEGATIVE (NEGATIVE); RESPIRATORY SYNCTIAL VIRUS NEGATIVE (NEGATIVE); SARS-CoV-2 Xpert Express NEGATIVE (NEGATIVE)
--- NOTE | 2022-10-02 15:36 | XRAY ---
CLINICAL HISTORY:Confusion. COMPARISON:None; TECHNIQUES:Axial non-contrast CT scan of the brain was performed from the skull base to the high parietal region. In addition, multiplanar, reformatted coronal and sagittal reformatted images were also acquired. CTDI 53.92 DLP 1016.25 mGy*cm; FINDINGS: Involutional changes in brain parenchyma. Ex vacuo ventricular dilatation was noted. Periventricular white matter microvascular ischemic changes were noted. 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 Vascular calcification noted. No established territorial infarction was noted. No midline shifts or deformity. No intracerebral or extra axial hematoma. Normal CT appearance of the posterior fossa structures namely the cerebellar hemispheres, brainstem and cerebellar peduncles. The IACs are unremarkable. The cerebello-pontine angles are clear. The osseous structures in the skull base are unremarkable. No definite calvarium fractures. The scanned paranasal sinuses are clear. IMPRESSION: 1. Involutional changes in brain parenchyma. 2. Ex vacuo ventricular dilatation was noted. 3. Periventricular white matter microvascular ischemic changes were noted. 5. 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 6. No established territorial infarction, intracranial hematoma or mass affect. Electronically Signed by: Chantel Payan MD. (10/02/2022 14:29:15 [employer])
[2022-10-02 16:16] VITALS: PULSE 70; O2SAT 98
[2022-10-02 16:31] LABS: Appearance Clear (Clear); Bacteria None Seen /HPF (None Seen); Bilirubin Negative (Negative); Blood Negative (Negative); Epithelial Cells None Seen /HPF (None Seen); Glucose, Urine 250 mg/dL (Negative); Ketones Negative (Negative); Leukocyte Esterase Negative (Negative); Nitrite Negative (Negative); Protein,Urine Dip 300 (Negative); RBC 0-2 /HPF (0-5); Specific Gravity 1.015 (1.005-1.030); Urobilinogen 0.2 mg/dL (0.2); WBC 0-2 /HPF (0-5)
[2022-10-02 16:38] LABS: ADD URINE CULTURE? NO (NO)
--- NOTE | 2022-10-02 20:53 | XRAY ---
Indication: Cough and confusion. Comparison: August 11, 2022 Portable chest less inflated again with minimal left base subsegmental atelectasis/scarring and a few tiny bilateral calcified granulomas. No focal infiltrate, consolidation, or large effusion. Heart not enlarged again with CABG tortuous descending aorta. Bony thorax intact again with osteopenia and mild degenerative changes. Impression: Continued nonacute chest with chronic features.
== END 2022-10-02 18:05 | disposition home or self-care (01) ==
LOC: ED 12:52
DX: R41.0 Disorientation, unspecified (principal); D64.9 Anemia, unspecified; E11.9 Type 2 diabetes mellitus without complications; I10 Essential (primary) hypertension; Z79.01 Long term (current) use of anticoagulants; Z79.891 Long term (current) use of opiate analgesic; Z79.4 Long term (current) use of insulin; Z79.84 Long term (current) use of oral hypoglycemic drugs; Z79.899 Other long term (current) drug therapy; Z28.310 Unvaccinated for COVID-19; Z86.16 Personal history of COVID-19; Z20.828 Contact with and (suspected) exposure to other viral communicable diseases
CPT/HCPCS: 0241U; 36000; 36415; 70450; 71045; 80053; 81001; 83605; 85025; 86308; 87040; 93005; 94760; 96360; 99284

== ENCOUNTER 2022-11-09 11:33 | Emergency (ER) | payer MEDICARE ==
--- NOTE | 2022-11-09 11:46 | ERPHSYRPT ---
- History of Present Illness Time Seen by Provider: 11/09/22 11:46 Historian: patient, family Exam Limitations: no limitations Physician History: This is an 82-year-old white male patient of nurse practitioner Ari who for the last couple of days has had a decreased appetite and intermittent abdominal pain. He denies abdominal pain today. He has had no vomiting but he does have some nausea. He has had no fevers or chills. He denies cough. He denies chest pain. He denies shortness of breath. Patient had a normal bowel movement today. Patient is on Eliquis, does have a history of coronary artery disease (CABG, catheterization, stent), hypertension, diabetes, gastroesophageal reflux disease and COPD. Patient and his spouse are going out of town and they wanted him evaluated before they leave since the symptoms came on in the last couple of days. Timing/Duration: day(s) (2 to 3 days), intermittent, resolved prior to arrival Activities at Onset: none Abdominal Pain Onset Location: generalized abdomen Severity of Pain-Max: mild (To moderate) Severity of Pain-Current: none Modifying Factors: Improves With: nothing Associated Symptoms: loss of appetite, nausea Previous symptoms: no prior history Allergies/Adverse Reactions: Iodinated Contrast Media [Iodinated Contrast Media - IV Dye] Allergy (Intermediate, Verified 11/09/22 11:53) unknown- hives morphine Allergy (Intermediate, Verified 11/09/22 11:53) confusion and combative hydromorphone HCl [From Dilaudid] Adverse Reaction (Intermediate, Verified 11/09/22 11:53) confusion and combative oxycodone HCl [From OxyContin] Adverse Reaction (Intermediate, Verified 11/09/22 11:53) confusion/ combative Home Medications: Amlodipine Besylate 5 mg [Norvasc 5 mg] 10 mg PO DAILY 05/16/22 [History] Apixaban [Eliquis 5 mg Tablet] 5 mg PO BID 05/16/22 [History] Bimatoprost 0.01% [Lumigan 0.01% 2.5 ml] 1 drop OP HS 05/16/22 [History] Cyanocobalamin 500 Mcg [Vitamin B-12 500 MCG] 1,000 mcg PO DAILY 05/16/22 [History] Hydrochlorothiazide 25 mg [hydroDIURIL 25 MG] 25 mg PO DAILY 05/16/22 [History] Hydrocodone/Acetaminophen [Hydrocodone-Acetamin 10-325 mg] 1 tab PO Q6HPRN PRN 05/16/22 [History] Insulin Glargine [Lantus Insulin] 20 unit SQ QAM 05/16/22 [History] Iron 65 mg PO DAILY 05/16/22 [History] Isosorbide Mononitrate 30 mg [Imdur 30 MG] 30 mg PO DAILY 05/16/22 [History] Metformin HCl 500 mg [Glucophage 500 MG] 1,000 mg PO BID 05/16/22 [History] Methylphenidate 5 mg [Ritalin 5 MG] 20 mg PO QAM 05/16/22 [History] Metoprolol Tartrate 25 mg [Lopressor 25MG Tab] 25 mg PO BID 05/16/22 [History] Multivitamin [Multivitamins] 1 tab PO DAILY 05/16/22 [History] Omeprazole 40 mg PO DAILY 05/16/22 [History] Pregabalin 50 mg [Lyrica 50MG] 150 mg PO BID 05/16/22 [History] Tamsulosin HCl 0.4 mg [Flomax 0.4 MG] 0.4 mg PO DAILY 05/16/22 [History] Zinc Gluconate [Zinc] 50 mg PO DAILY 05/16/22 [History] Albuterol 2.5 mg/3 ml Neb [Proventil 2.5 mg/3 ml Neb] 1 neb IH DAILY PRN PRN 07/08/22 [History] Insulin Regular, Human [NovoLIN R] 0 unit SQ UD 07/08/22 [History] Hx Tetanus, Diphtheria Vaccination/Date Given: Yes Hx Influenza Vaccination/Date Given: Yes Hx Pneumococcal Vaccination/Date Given: Yes Travel Risk - International Travel Have you traveled outside of the country in past 3 weeks: No - Coronavirus Screening Are you exhibiting any of the following symptoms?: No Close contact with a COVID-19 positive Pt in past 14-21 Days: No - Vaccine Status Have you recieved a Covid-19 vaccination: No - Review of Systems Constitutional: No Symptoms Eyes: No Symptoms Ears, Nose, & Throat: No Symptoms Respiratory: No Symptoms Cardiac: No Symptoms Abdominal/Gastrointestinal: Abdominal Pain (Resolved prior to arrival), Nausea, Appetite Changes Genitourinary Symptoms: No Symptoms Musculoskeletal: No Symptoms Skin: No Symptoms Neurological: No Symptoms Psychological: No Symptoms Endocrine: No Symptoms Hematologic/Lymphatic: No Symptoms Immunological/Allergic: No Symptoms All Other Systems: Reviewed and Negative - Past Medical History Pertinent Past Medical History: Yes Neurological History: No Pertinent History ENT History: Cataracts, Glaucoma Cardiac History: Hypertension, Myocardial Infarction ([place]), Other Respiratory History: Asthma, COPD, Other Endocrine Medical History: Diabetes Type II Musculoskeletal History: Fractures GI Medical History: GERD, Gallbladder Disease History: Other Psycho-Social History: Depression Male Reproductive Disorders: Prostate Problems Other Medical History: COVID-19, L Wrist Fracture (1982), Open Heart Surgery (1993), LE fracture (unable to recall which side, ), Low Back Pain, LB surgery (1994 with rods placed) - Past Surgical History Past Surgical History: Yes Neuro Surgical History: No Pertinent History Cardiac: CABG, Cardiac Catheterization, Cardiac Stent Respiratory: Chest Surgery Gastrointestinal: Appendectomy, Cholecystectomy Genitourinary: No Pertinent History Musculoskeletal: Orthopedic Surgery Male Surgical History: No Pertinent History Other Surgical History: back surgery, fem pop, steriod injection in various joints, carpal tunnel surgery - Social History Smoking Status: Never smoker How long have you smoked: 1975 Exposure to second hand smoke: No Drug Use: none Patient Lives Alone: No - Nursing Vital Signs Nursing Vital Signs: Initial Vital Signs Temperature 96.7 F 11/09/22 11:46 Pulse Rate 59 L 11/09/22 11:46 Respiratory Rate 18 11/09/22 11:46 Blood Pressure 135/60 11/09/22 11:46 O2 Sat by Pulse Oximetry 95 11/09/22 11:46 Pain Scale Pain Intensity 0 - Physical Exam General Appearance: no apparent distress, alert Eye Exam: PERRL/EOMI, eyes nml inspection Ears, Nose, Throat Exam: normal ENT inspection, moist mucous membranes Neck Exam: normal inspection, non-tender, supple, full range of motion Respiratory Exam: normal breath sounds, lungs clear, airway intact, No chest tenderness, No respiratory distress Cardiovascular Exam: regular rate/rhythm, normal heart sounds, normal peripheral pulses Gastrointestinal/Abdomen Exam: soft, normal bowel sounds, No tenderness Rectal Exam: not done Back Exam: normal inspection, normal range of motion, No CVA tenderness, No vert ebral tenderness Extremity Exam: normal inspection, normal range of motion, pelvis stable Neurologic Exam: alert, oriented x 3, cooperative, box spring maker II-XII nml as tested, normal mood/affect, nml cerebellar function, nml station & gait, sensation nml Skin Exam: normal color, warm, dry Lymphatic Exam: No adenopathy SpO2 Interpretation: normal O2 Delivery: Room Air - Course Nursing assessment & vital signs reviewed: Yes Ordered Tests: Active Orders 24 hr Category Date Time Status IV Insertion STAT Care 11/09/22 12:09 Active ABDOMEN AND PELVIS W/0 CONTRAS [CT] Stat Exams 11/09/22 12:09 Completed AMYLASE Stat Lab 11/09/22 12:10 Completed CBC W DIFF Stat Lab 11/09/22 12:10 Completed CMP Stat Lab 11/09/22 12:10 Completed LIPASE Stat Lab 11/09/22 12:10 Completed TROPONIN Q4H Lab 11/09/22 12:10 Completed TROPONIN Q4H Lab 11/09/22 16:15 Ordered TROPONIN Q4H Lab 11/09/22 20:15 Ordered UA W/RFX UR CULTURE Stat Lab 11/09/22 12:09 Ordered Lab/Rad Data: Laboratory Result Diagrams 11/09/22 12:10 11/09/22 12:10 Laboratory Results 11/09/22 11/09/22 11/09/22 Range/Units 12:10 12:10 12:10 WBC 7.7 (4.0-10.5) x10^3/uL RBC 3.91 L (4.1-5.6) x10^6/uL Hgb 11.0 L (12.5-18.0) g/dL Hct 34.1 L (42-50) % MCV 87.2 (78-100) fL MCH 28.1 (26-32) pg MCHC 32.3 (32-36) g/dL RDW 15.4 H (11.5-14.0) % Plt Count 214 (150-450) x10^3/uL MPV 11.9 H (7.5-11.0) fL Gran % 63.4 (36.0-66.0) % Immature Gran % (Auto) 0.1 (0.00-0.4) % Nucleat RBC Rel Count 0.0 (0.00-0.1) % Eos # (Auto) 0.41 (0-0.5) x10^3/uL Immature Gran # (Auto) 0.01 (0.00-0.03) x10^3u/L Absolute Lymphs (auto) 1.88 (1.0-4.6) x10^3/uL Absolute Monos (auto) 0.37 (0.0-1.3) x10^3/uL Absolute Nucleated RBC 0.00 (0.00-0.01) x10^3u/L Lymphocytes % 24.4 (24.0-44.0) % Monocytes % 4.8 (0.0-12.0) % Eosinophils % 5.3 H (0.00-5.0) % Basophils % 2.0 (0.0-0.4) % Absolute Granulocytes 4.87 (1.4-6.9) x10^3/uL Basophils # 0.15 (0-0.4) x10^3/uL Sodium 137 (137-145) mmol/L Potassium 5.1 (3.5-5.1) mmol/L Chloride 105 (98-107) mmol/L Carbon Dioxide 22 (22-30) mmol/L Anion Gap 14.5 (5-15) MEQ/L BUN 32 H (9-20) mg/dL Creatinine 2.49 H (0.66-1.25) mg/dL Estimated GFR 26.6 ML/MIN Glucose 199 H (74-106) mg/dL Calcium 9.2 (8.4-10.2) mg/dL Total Bilirubin 0.50 (0.2-1.3) mg/dL AST 25 (17-59) U/L ALT 17 (0-50) U/L Alkaline Phosphatase 58 (38-126) U/L Troponin I < 0.012 (0.000-0.034) ng/mL Serum Total Protein 7.6 (6.3-8.2) g/dL Albumin 4.0 (3.5-5.0) g/dL Amylase 69 (30-110) U/L Lipase 126 (23-300) U/L - Progress Progress: improved, re-examined Progress Note: 11/09/22 13:13 Cat scan of the abdomen pelvis without contrast shows bilateral renal cyst. T here is atherosclerotic disease that scattered within the vasculature of the abdominal vessels without abdominal aortic aneurysm. This patient's medical issue is 1 of moderate complexity. Level of complexity in the work-up performed is based on the review of the patient's past medical history, review of the patient's medication list, review of the patient's drug allergy list, history present illness and physical findings on examination. The work-up included CBC, CMP, amylase, lipase, CAT scan of the abdomen pelvis without contrast, urinalysis. I reviewed the work-up results except for the urinalysis. That test is pending. There is no evidence of any acute, emergent abnormality. If the urinalysis shows urinary tract infection we will treat that with an antibiotic. Otherwise we will discharge patient home to follow-up with his primary care provider. 11/09/22 14:27 The patient states he still is unable to void. The patient and the patient's family want him to be discharged to home and he will bring back a urine specimen to the lab. I do not think this is unreasonable since the most important issues have already been evaluated by review of the results. I wrote him a prescription for urinalysis and we provided him with a specimen cup that he will return back to the lab sometime later today. The results are to be faxed to his primary care provider, nurse practitioner Dolores Chapman. Counseled pt/family regarding: lab results, diagnosis, need for follow-up, rad results Medical Desision Making - Independent Historian Additional History obtained from: Spouse, Child (Daughter) - Diagnostic Testing Diagnostic test were ordered, analyzed, and reviewed by me: Yes Radiological Interpretation: Reviewed by me, Teleradiologist Report - Risk of complications Low Risk: Low risk of morbidity from additional dx testing or treatment - Departure Departure Disposition: Home Clinical Impression: Abdominal pain Condition: Stable Critical Care Time: No Referrals: FLORIDALMA CHAPMAN, PACKING AND WRAPPING SUPERVISOR [Primary Care Provider] - Follow up/PCP as directed Additional Instructions: Drink plenty of clear liquids before advancing your diet. Once you urinate, obtain a specimen and placed into the container and return the specimen back to the lab at the hospital. Call Dolores Chapman, your primary prescribing provider to follow-up on the urinalysis study and for further management if necessary.
[2022-11-09 12:26] LABS: Absolute Neutrophil Ct (ANC) 4.87 x10^3/uL (1.4-6.9); Basophil (Absolute #) 0.15 x10^3/uL (0-0.4); Eosinophil % 5.3 % (0.00-5.0); Eosinophil (Absolute #) 0.41 x10^3/uL (0-0.5); Hematocrit 34.1 % (42-50); IMMATURE GRAN # 0.01 x10^3u/L (0.00-0.03); IMMATURE GRAN % 0.1 % (0.00-0.4); Lymphocyte (Absolute #) 1.88 x10^3/uL (1.0-4.6); Lymphocytes % 24.4 % (24.0-44.0); Mean Cell Volume 87.2 fL (78-100); Mean Corpuscular Hemoglobin 28.1 pg (26-32); Mean Corpuscular Hgb Concent. 32.3 g/dL (32-36); Mean Platelet Volume 11.9 fL (7.5-11.0); Monocyte (Absolute #) 0.37 x10^3/uL (0.0-1.3); Monocytes % 4.8 % (0.0-12.0); Neutrophil % 63.4 % (36.0-66.0); Platelet Count 214 x10^3/uL (150-450); Red Blood Count 3.91 x10^6/uL (4.1-5.6); Red Cell Distribution Width 15.4 % (11.5-14.0); White Blood Count 7.7 x10^3/uL (4.0-10.5)
[2022-11-09 12:44] LABS: ANION GAP 14.5 MEQ/L (5-15); BILIRUBIN,TOTAL 0.5 mg/dL (0.2-1.3); Calcium 9.2 mg/dL (8.4-10.2); Creatinine 1 2.49 mg/dL (0.66-1.25); EST GLOMERULAR FILTRATION RATE 26.6 ML/MIN; Potassium 5.1 mmol/L (3.5-5.1); Total Protein 7.6 g/dL (6.3-8.2)
--- NOTE | 2022-11-09 13:10 | XRAY ---
Indication: Abdomen pain, nausea, and decreased appetite. Multiple contiguous axial images obtained through the abdomen and pelvis without contrast. Comparison: May 27, 2022 Lung bases again demonstrates dependent atelectasis and tiny bilateral calcified granulomas. Heart not enlarged again with CABG. Noncontrasted stomach and bowel loops are nonobstructed. Again appendectomy and cholecystectomy. No free fluid/air. Stable incidental tiny calcified splenic granulomas and small bilateral renal cysts. No free fluid/air. Remaining liver, pancreas, spleen, adrenal glands, kidneys, ureters, and bladder are unremarkable for noncontrast exam. Again extensive scattered arteriosclerotic calcifications without AAA. Osseous structures intact again with osteopenia, mild/moderate multilevel degenerative spondylosis, and L4-L5-S1 posterior fusion with grade 2 spondylolisthesis. Impression: 1. Again bilateral renal cysts, arteriosclerotic disease, chronic bony findings, and old granulomatous disease. 2. Remaining CT abdomen/pelvis without contrast exam continues to be negative.
[2022-11-09 14:21] VITALS: BP 170/84; PULSE 54; O2SAT 97
== END 2022-11-09 14:45 | disposition home or self-care (01) ==
LOC: ED 11:33
DX: R10.9 Unspecified abdominal pain (principal); R11.0 Nausea; I10 Essential (primary) hypertension; E11.9 Type 2 diabetes mellitus without complications; Z79.01 Long term (current) use of anticoagulants; Z79.4 Long term (current) use of insulin; Z79.84 Long term (current) use of oral hypoglycemic drugs; Z79.899 Other long term (current) drug therapy; Z79.891 Long term (current) use of opiate analgesic; Z28.310 Unvaccinated for COVID-19; Z86.16 Personal history of COVID-19
CPT/HCPCS: 36000; 36415; 74176; 80053; 82150; 83690; 84484; 85025; 99283

== ENCOUNTER 2023-01-08 13:26 | Emergency (ER) | payer MEDICARE ==
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
[2023-01-08 13:50] VITALS: PULSE 74; RESP 18; TEMP 97.7; O2SAT 95
[2023-01-08] MEDS ORDERED: Rocephin 1000 MG INJ IM ONE (14:02)
[2023-01-08] MEDS ORDERED: Rocephin 1000 MG INJ ONE (14:06)
[2023-01-08] MEDS ORDERED: XYLOCAINE 1% HCL 20 ML MDV ONE (14:06)
[2023-01-08] MEDS ORDERED: BACIGUENT PACKET ONE (14:06)
[2023-01-08] MEDS ORDERED: BACIGUENT PACKET TP ONE (14:09)
[2023-01-08 14:41] VITALS: BP 123/64
== END 2023-01-08 15:00 | disposition home or self-care (01) ==
LOC: ED 13:26
DX: T24.232A Burn of second degree of left lower leg, initial encounter (principal); X18.XXXA Contact with other hot metals, initial encounter; Y92.007 Garden or yard of unspecified non-institutional (private) residence as the place of occurrence of the external cause; E11.9 Type 2 diabetes mellitus without complications; I10 Essential (primary) hypertension; Z79.01 Long term (current) use of anticoagulants; Z79.891 Long term (current) use of opiate analgesic; Z79.84 Long term (current) use of oral hypoglycemic drugs; Z79.4 Long term (current) use of insulin; Z79.899 Other long term (current) drug therapy; Z28.310 Unvaccinated for COVID-19; Z86.16 Personal history of COVID-19
CPT/HCPCS: 96372; 99283; J0696; A9270-GY

== ENCOUNTER 2023-01-09 14:20 | Emergency (ER) | payer MEDICARE ==
[2023-01-09] MEDS ORDERED: BACIGUENT PACKET ONE (14:57)
[2023-01-09 15:01] VITALS: BP 140/58; PULSE 76; RESP 18; TEMP 97.6; O2SAT 98
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
== END 2023-01-09 15:20 | disposition home or self-care (01) ==
LOC: ED 14:20
DX: T24.132D Burn of first degree of left lower leg, subsequent encounter (principal); I10 Essential (primary) hypertension; E11.9 Type 2 diabetes mellitus without complications; Z79.01 Long term (current) use of anticoagulants; Z79.84 Long term (current) use of oral hypoglycemic drugs; Z79.4 Long term (current) use of insulin; Z79.899 Other long term (current) drug therapy; Z28.310 Unvaccinated for COVID-19; Z86.16 Personal history of COVID-19
CPT/HCPCS: 99281; A9270-GY

== ENCOUNTER 2023-01-15 14:27 | Emergency (ER) | payer MEDICARE ==
[2023-01-15] MEDS ORDERED: DUONEB 0.5-3 MG/3 ml Neb IH ONE ×2 (15:14→15:19)
[2023-01-15] MEDS ORDERED: ROCEPHIN 1 Gm-D5w 50 ml Bag** 1 G/50 ML IVPB IV STA (15:14)
[2023-01-15 15:23] VITALS: BP 133/67; TEMP 98
[2023-01-15 15:26] VITALS: PULSE 69; RESP 18; O2SAT 95
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
[2023-01-15] MEDS ORDERED: ROCEPHIN 1 Gm-D5w 50 ml Bag** 1 G/50 ML IVPB IV ONE (15:35)
[2023-01-15 15:42] LABS: BASOPHIL % 1.2 % (0.0-0.4); Basophil (Absolute #) 0.09 x10^3/uL (0-0.4); Eosinophil % 2.9 % (0.00-5.0); Eosinophil (Absolute #) 0.23 x10^3/uL (0-0.5); Hematocrit 33.7 % (42-50); Hemoglobin 10.5 g/dL (12.5-18.0); IMMATURE GRAN # 0.06 x10^3u/L (0.00-0.03); IMMATURE GRAN % 0.8 % (0.00-0.4); Lymphocyte (Absolute #) 1.22 x10^3/uL (1.0-4.6); Lymphocytes % 15.6 % (24.0-44.0); Mean Cell Volume 90.3 fL (78-100); Mean Corpuscular Hemoglobin 28.2 pg (26-32); Mean Corpuscular Hgb Concent. 31.2 g/dL (32-36); Mean Platelet Volume 10.8 fL (7.5-11.0); Monocytes % 3.8 % (0.0-12.0); Neutrophil % 75.7 % (36.0-66.0); Platelet Count 254 x10^3/uL (150-450); Red Blood Count 3.73 x10^6/uL (4.1-5.6); Red Cell Distribution Width 15.8 % (11.5-14.0); White Blood Count 7.8 x10^3/uL (4.0-10.5)
[2023-01-15 15:54] LABS: ALBUMIN 3.6 g/dL (3.5-5.0); ANION GAP 13.9 MEQ/L (5-15); BILIRUBIN,TOTAL 0.4 mg/dL (0.2-1.3); Calcium 9.2 mg/dL (8.4-10.2); Creatinine 1 1.97 mg/dL (0.66-1.25); EST GLOMERULAR FILTRATION RATE 34.9 ML/MIN; Potassium 4.4 mmol/L (3.5-5.1)
--- NOTE | 2023-01-15 22:00 | XRAY ---
Indication: Cough and short of breath. Comparison: October 02, 2022 AP/lateral chest unchanged again demonstrating mild left base and minimal right base subsegmental atelectasis/scarring and a few scattered tiny calcified granulomas. Heart not enlarged again with CABG and tortuous descending aorta. Bony thorax intact again with osteopenia mild degenerative changes. No new/acute findings.
== END 2023-01-15 16:31 | disposition home or self-care (01) ==
LOC: ED 14:27
DX: R05.8 Other specified cough (principal); J98.01 Acute bronchospasm; T24.132D Burn of first degree of left lower leg, subsequent encounter; J34.89 Other specified disorders of nose and nasal sinuses; I10 Essential (primary) hypertension; E11.9 Type 2 diabetes mellitus without complications; Z79.01 Long term (current) use of anticoagulants; Z79.891 Long term (current) use of opiate analgesic; Z79.84 Long term (current) use of oral hypoglycemic drugs; Z79.4 Long term (current) use of insulin; Z79.899 Other long term (current) drug therapy; Z28.310 Unvaccinated for COVID-19; Z86.16 Personal history of COVID-19
CPT/HCPCS: 36415; 71046; 80053; 85025; 94640; 96365; 99284; J0696; A9270-GY

== ENCOUNTER 2023-02-12 10:03 | Inpatient (IN) | payer MEDICARE ==
--- NOTE | 2023-02-12 10:21 | ERPHSYRPT ---
- History of Present Illness Time Seen by Provider: 02/12/23 10:21 Source: patient, family (Spouse provided independent additional medical history), old records Exam Limitations: no limitations Physician History: This is a 83-year-old white male patient who has multiple medical problems and presents with a 2-day history of cough, mild shortness of air and increasing fa tigue. He denies chest pain. He denies abdominal pain and he denies nausea vomiting diarrhea. His room air oxygenation saturation level upon arrival to the emergency department is 89%. 2 L of oxygen was placed via nasal cannula and his oxygen saturation increased to 93%. During my examination his oxygen saturation was 97% while on the oxygen. Patient was recently placed on Keflex for treatment of right second digit cellulitis. Patient has a history of hypertension, anemia, diabetes, gastroesophageal reflux disease, coronary disease (cardiac stents and CABG) COPD/asthma, depression, and he is on Eliquis daily Timing/Duration: day(s) (2) Cough Quality/Degree: mild, dry cough Possible Cause: occasional episodes Modifying Factors: Improves With: activity, coughing Associated Symptoms: cough, No chest pain/soreness, No shortness of breath (Mild with exertion) Allergies/Adverse Reactions: Iodinated Contrast Media [Iodinated Contrast Media - IV Dye] Allergy (Intermediate, Verified 02/12/23 10:30) unknown- hives morphine Allergy (Intermediate, Verified 02/12/23 10:30) confusion and combative hydromorphone HCl [From Dilaudid] Adverse Reaction (Intermediate, Verified 02/12/23 10:30) confusion and combative oxycodone HCl [From OxyContin] Adverse Reaction (Intermediate, Verified 02/12/23 10:30) confusion/ combative Home Medications: Amlodipine Besylate 5 mg [Norvasc 5 mg] 10 mg PO DAILY 05/16/22 [History] Apixaban [Eliquis 5 mg Tablet] 5 mg PO BID 05/16/22 [History] Bimatoprost 0.01% [Lumigan 0.01% 2.5 ml] 1 drop OP HS 05/16/22 [History] Hydrocodone/Acetaminophen [Hydrocodone-Acetamin 10-325 mg] 1 tab PO Q6HPRN PRN 05/16/22 [History] Isosorbide Mononitrate 30 mg [Imdur 30 MG] 30 mg PO DAILY 05/16/22 [History] Metformin HCl 500 mg [Glucophage 500 MG] 1,000 mg PO CLARIFY 05/16/22 [History] Methylphenidate 5 mg [Ritalin 5 MG] 20 mg PO QAM 05/16/22 [History] Metoprolol Tartrate 25 mg [Lopressor 25MG Tab] 25 mg PO BID 05/16/22 [History] Multivitamin [Multivitamins] 1 tab PO DAILY 05/16/22 [History] Omeprazole 40 mg PO DAILY 05/16/22 [History] Pregabalin 50 mg [Lyrica 50MG] 150 mg PO CLARIFY 05/16/22 [History] Tamsulosin HCl 0.4 mg [Flomax 0.4 MG] 0.4 mg PO DAILY 05/16/22 [History] Albuterol 2.5 mg/3 ml Neb [Proventil 2.5 mg/3 ml Neb] 1 neb IH DAILY PRN PRN 07/08/22 [History] Dapagliflozin Propanediol [Farxiga] 10 mg PO DAILY 01/08/23 [History] Ferrous Sulfate 325 mg [Feosol 325 mg] 325 mg PO DAILY 01/08/23 [History] Furosemide 20 mg [Lasix 20 mg] 20 mg PO DAILY 01/08/23 [History] Insulin Glargine/Lixisenatide [Soliqua 100 Unit-33 Mcg/ml Pen] 15 units SQ DAILY 01/08/23 [History] Nitroglycerin 0.4 mg Tablet [Nitrostat 0.4 MG Tablet] 0.4 mg PO UD 01/08/23 [History] Sucralfate 1 gm [Carafate 1 GM] 1 gm PO QID 01/08/23 [History] Allopurinol 300 mg [Zyloprim 300 mg] 1 tab PO DAILY 02/12/23 [History] Fluticasone/Umeclidin/Vilanter [Trelegy Ellipta 100-62.5-25] 1 puff PO DAILY 02/12/23 [History] Hx Tetanus, Diphtheria Vaccination/Date Given: Yes Hx Influenza Vaccination/Date Given: Yes Hx Pneumococcal Vaccination/Date Given: Yes Travel Risk - International Travel Have you traveled outside of the country in past 3 weeks: No - Coronavirus Screening Are you exhibiting any of the following symptoms?: Yes Symptoms: Cough: New Onset, Shortness of Breath Close contact with a COVID-19 positive Pt in past 14-21 Days: No - Vaccine Status Have you recieved a Covid-19 vaccination: No - Review of Systems Constitutional: No Symptoms, Weakness Eyes: No Symptoms Ears, Nose, & Throat: No Symptoms Respiratory: Cough, Dyspnea on Exertion (HAYES) Cardiac: No Symptoms Abdominal/Gastrointestinal: No Symptoms Genitourinary Symptoms: No Symptoms Musculoskeletal: No Symptoms Skin: No Symptoms Neurological: Other (Increased fatigue) Psychological: No Symptoms Endocrine: No Symptoms Hematologic/Lymphatic: No Symptoms Immunological/Allergic: No Symptoms All Other Systems: Reviewed and Negative - Past Medical History Pertinent Past Medical History: Yes Neurological History: No Pertinent History ENT History: Cataracts, Glaucoma Cardiac History: Hypertension, Myocardial Infarction (ID), Other Respiratory History: Asthma, COPD, Other Endocrine Medical History: Diabetes Type II Musculoskeletal History: Fractures GI Medical History: GERD, Gallbladder Disease History: Other Psycho-Social History: Depression Male Reproductive Disorders: Prostate Problems Other Medical History: COVID-19, L Wrist Fracture (1982), Open Heart Surgery (1993), LE fracture (unable to recall which side, 1959's), Low Back Pain, LB surgery (1994 with rods placed) - Past Surgical History Past Surgical History: Yes Neuro Surgical History: No Pertinent History Cardiac: CABG, Cardiac Catheterization, Cardiac Stent Respiratory: Chest Surgery Gastrointestinal: Appendectomy, Cholecystectomy Genitourinary: No Pertinent History Musculoskeletal: Orthopedic Surgery Male Surgical History: No Pertinent History Other Surgical History: back surgery, fem pop, steriod injection in various joints, carpal tunnel surgery - Social History Smoking Status: Never smoker How long have you smoked: 1975 Exposure to second hand smoke: No Drug Use: none Patient Lives Alone: No - Nursing Vital Signs Nursing Vital Signs: Initial Vital Signs Temperature 99.3 F 02/12/23 10:03 Pulse Rate 104 H 02/12/23 10:03 Respiratory Rate 02/12/23 10:03 Blood Pressure 130/45 02/12/23 10:03 O2 Sat by Pulse Oximetry 89 L 02/12/23 10:03 Pain Scale Pain Intensity 0 - Physical Exam General Appearance: no apparent distress, alert, anxiety Eye Exam: PERRL/EOMI, eyes nml inspection Ears, Nose, Throat Exam: normal ENT inspection, moist mucous membranes Neck Exam: normal inspection, non-tender, supple, full range of motion Respiratory Exam: normal breath sounds, lungs clear, airway intact, No chest tenderness, No respiratory distress Cardiovascular Exam: regular rate/rhythm, normal heart sounds, normal peripheral pulses Gastrointestinal/Abdomen Exam: soft, normal bowel sounds, No tenderness Rectal Exam: not done Back Exam: normal inspection, normal range of motion, No CVA tenderness, No vertebral tenderness Extremity Exam: normal inspection, normal range of motion, pelvis stable Neurologic Exam: alert, oriented x 3, cooperative, identification technician II-XII nml as tested, normal mood/affect Skin Exam: normal color, warm, dry Lymphatic Exam: No adenopathy SpO2 Interpretation: hypoxic O2 Delivery: Room Air - Course Nursing assessment & vital signs reviewed: Yes EKG Interpreted by Me: RATE (98), Sinus Rhythm, NORMAL AXIS, Right Bundle Branch Block, NORMAL ST-T, Other (Prolonged MI interval. No evidence of any acute ischemic changes on today's twelve-lead EKG.) Ordered Tests: Active Orders 24 hr Category Date Time Status Senior Maintenance Technician STAT Care 02/12/23 10:46 Active EKG-ER Only STAT Care 02/12/23 10:45 Active IV Insertion STAT Care 02/12/23 10:45 Active Pulse Oximetry (ED) STAT Care 02/12/23 10:45 Active CHEST 1 VIEW (PORTABLE) Stat Exams 02/12/23 10:46 Completed CHEST WITHOUT CONTRAST [CT] Stat Exams 02/12/23 13:22 Ordered BLOOD CULTURE Stat Lab 02/12/23 11:10 Received CBC W DIFF Stat Lab 02/12/23 11:56 Completed CMP Stat Lab 02/12/23 11:56 Completed Lactic Acid Stat Lab 02/12/23 10:45 Completed MONO SCREEN Stat Lab 02/12/23 11:56 Completed NT PRO BNPII Stat Lab 02/12/23 11:56 Completed TROPONIN Q4H Lab 02/12/23 11:56 Completed TROPONIN Q4H Lab 02/12/23 15:00 Ordered TROPONIN Q4H Lab 02/12/23 19:00 Ordered UA W/RFX UR CULTURE Stat Lab 02/12/23 12:57 Completed Transfer Order Routine Transfer 02/12/23 Ordered Medication Summary Generic Name Dose Route Start Last Admin Trade Name Maribeth PRN Reason Stop Dose Admin Sodium Chloride 1,000 mls @ 50 mls/hr 02/12/23 10:45 02/12/23 10:52 Sodium Chloride 0.9% 1000 Ml IV 03/14/23 10:44 50 mls/hr .Q20H RUTH Administration Discontinued Medications Generic Name Dose Route Start Last Admin Trade Name Freq PRN Reason Stop Dose Admin Ceftriaxone Sodium/Dextrose 1 g in 50 mls @ 100 mls/hr 02/12/23 12:10 02/12/23 12:58 Rocephin 1 Gm-D5w 50 Ml Bag IV 02/12/23 12:39 Infused STAT STA Infusion Ceftriaxone Sodium/Dextrose Confirm 02/12/23 12:18 Rocephin 1 Gm-D5w 50 Ml Bag Administered 02/12/23 12:19 Dose 1 g in 50 mls @ ud IV .K-MED ONE Lab/Rad Data: Laboratory Result Diagrams 02/12/23 11:56 02/12/23 11:56 Laboratory Results 02/12/23 02/12/23 02/12/23 Range/Units 12:57 11:56 11:56 WBC (4.0-10.5) x10^3/uL RBC (4.1-5.6) x10^6/uL Hgb (12.5-18.0) g/dL Hct (42-50) % MCV (78-100) fL MCH (26-32) pg MCHC (32-36) g/dL RDW (11.5-14.0) % Plt Count (150-450) x10^3/uL MPV (7.5-11.0) fL Gran % (36.0-66.0) % Immature Gran % (Auto) (0.00-0.4) % Nucleat RBC Rel Count (0.00-0.1) % Eos # (Auto) (0-0.5) x10^3/uL Immature Gran # (Auto) (0.00-0.03) x10^3u/L Absolute Lymphs (auto) (1.0-4.6) x10^3/uL Absolute Monos (auto) (0.0-1.3) x10^3/uL Absolute Nucleated RBC (0.00-0.01) x10^3u/L Lymphocytes % (24.0-44.0) % Monocytes % (0.0-12.0) % Eosinophils % (0.00-5.0) % Basophils % (0.0-0.4) % Absolute Granulocytes (1.4-6.9) x10^3/uL Basophils # (0-0.4) x10^3/uL Sodium (137-145) mmol/L Potassium (3.5-5.1) mmol/L Chloride (98-107) mmol/L Carbon Dioxide (22-30) mmol/L Anion Gap (5-15) MEQ/L BUN (9-20) mg/dL Creatinine (0.66-1.25) mg/dL Estimated GFR ML/MIN Glucose (74-106) mg/dL Lactic Acid (0.4-2.0) Calcium (8.4-10.2) mg/dL Total Bilirubin (0.2-1.3) mg/dL AST (17-59) U/L ALT (0-50) U/L Alkaline Phosphatase (38-126) U/L Troponin I (0.000-0.034) ng/mL NT-Pro-B Natriuret Pep (<300) pg/mL Serum Total Protein (6.3-8.2) g/dL Albumin (3.5-5.0) g/dL Urine Color Yellow (Yellow) Urine Appearance Clear (Clear) Urine pH 7.5 (4.6-8.0) Ur Specific Oil Trough 1.020 (1.005-1.030) Urine Protein 30 (Negative) Urine Glucose (UA) >=1000 A (Negative) mg/dL Urine Ketones Negative (Negative) Urine Blood Negative (Negative) Urine Nitrite Negative (Negative) Urine Bilirubin Negative (Negative) Urine Urobilinogen 0.2 (0.2) mg/dL Ur Leukocyte Esterase Negative (Negative) U Hyaline Cast (Auto) NONE SEEN (0-2) /LPF Urine Microscopic RBC 0-2 (0-5) /HPF Urine Microscopic WBC 0-2 (0-5) /HPF Ur Epithelial Cells None Seen (None Seen) /HPF Urine Bacteria None Seen (None Seen) /HPF Urine Culture Reflexed NO (NO) Monoscreen NEGATIVE (NEGATIVE) Influenza Type A Ag NEGATIVE (NEGATIVE) Influenza Type B Ag NEGATIVE (NEGATIVE) RSV (PCR) NEGATIVE (NEGATIVE) SARS-CoV-2 (PCR) NEGATIVE (NEGATIVE) Group A Strep Antibody (NEGATIVE) 02/12/23 02/12/23 02/12/23 Range/Units 11:56 11:56 11:56 WBC (4.0-10.5) x10^3/uL RBC (4.1-5.6) x10^6/uL Hgb (12.5-18.0) g/dL Hct (42-50) % MCV (78-100) fL MCH (26-32) pg MCHC (32-36) g/dL RDW (11.5-14.0) % Plt Count (150-450) x10^3/uL MPV (7.5-11.0) fL Gran % (36.0-66.0) % Immature Gran % (Auto) (0.00-0.4) % Nucleat RBC Rel Count (0.00-0.1) % Eos # (Auto) (0-0.5) x10^3/uL Immature Gran # (Auto) (0.00-0.03) x10^3u/L Absolute Lymphs (auto) (1.0-4.6) x10^3/uL Absolute Monos (auto) (0.0-1.3) x10^3/uL Absolute Nucleated RBC (0.00-0.01) x10^3u/L Lymphocytes % (24.0-44.0) % Monocytes % (0.0-12.0) % Eosinophils % (0.00-5.0) % Basophils % (0.0-0.4) % Absolute Granulocytes (1.4-6.9) x10^3/uL Basophils # (0-0.4) x10^3/uL Sodium (137-145) mmol/L Potassium (3.5-5.1) mmol/L Chloride (98-107) mmol/L Carbon Dioxide (22-30) mmol/L Anion Gap (5-15) MEQ/L BUN (9-20) mg/dL Creatinine (0.66-1.25) mg/dL Estimated GFR ML/MIN Glucose (74-106) mg/dL Lactic Acid (0.4-2.0) Calcium (8.4-10.2) mg/dL Total Bilirubin (0.2-1.3) mg/dL AST (17-59) U/L ALT (0-50) U/L Alkaline Phosphatase (38-126) U/L Troponin I < 0.012 (0.000-0.034) ng/mL NT-Pro-B Natriuret Pep 1150 (<300) pg/mL Serum Total Protein (6.3-8.2) g/dL Albumin (3.5-5.0) g/dL Urine Color (Yellow) Urine Appearance (Clear) Urine pH (4.6-8.0) Ur Specific Oil Trough (1.005-1.030) Urine Protein (Negative) Urine Glucose (UA) (Negative) mg/dL Urine Ketones (Negative) Urine Blood (Negative) Urine Nitrite (Negative) Urine Bilirubin (Negative) Urine Urobilinogen (0.2) mg/dL Ur Leukocyte Esterase (Negative) U Hyaline Cast (Auto) (0-2) /LPF Urine Microscopic RBC (0-5) /HPF Urine Microscopic WBC (0-5) /HPF Ur Epithelial Cells (None Seen) /HPF Urine Bacteria (None Seen) /HPF Urine Culture Reflexed (NO) Monoscreen (NEGATIVE) Influenza Type A Ag (NEGATIVE) Influenza Type B Ag (NEGATIVE) RSV (PCR) (NEGATIVE) SARS-CoV-2 (PCR) (NEGATIVE) Group A Strep Antibody NOT DETECTED (NEGATIVE) 02/12/23 02/12/23 02/12/23 Range/Units 11:56 11:56 10:45 WBC 20.2 H (4.0-10.5) x10^3/uL RBC 3.93 L (4.1-5.6) x10^6/uL Hgb 11.2 L (12.5-18.0) g/dL Hct 35.1 L (42-50) % MCV 89.3 (78-100) fL MCH 28.5 (26-32) pg MCHC 31.9 L (32-36) g/dL RDW 14.5 H (11.5-14.0) % Plt Count 266 (150-450) x10^3/uL MPV 11.8 H (7.5-11.0) fL Gran % 89.5 H (36.0-66.0) % Immature Gran % (Auto) 1.5 H (0.00-0.4) % Nucleat RBC Rel Count 0.0 (0.00-0.1) % Eos # (Auto) 0.07 (0-0.5) x10^3/uL Immature Gran # (Auto) 0.30 H (0.00-0.03) x10^3u/L Absolute Lymphs (auto) 0.91 L (1.0-4.6) x10^3/uL Absolute Monos (auto) 0.70 (0.0-1.3) x10^3/uL Absolute Nucleated RBC 0.00 (0.00-0.01) x10^3u/L Lymphocytes % 4.5 L (24.0-44.0) % Monocytes % 3.5 (0.0-12.0) % Eosinophils % 0.3 (0.00-5.0) % Basophils % 0.7 (0.0-0.4) % Absolute Granulocytes 18.10 H (1.4-6.9) x10^3/uL Basophils # 0.14 (0-0.4) x10^3/uL Sodium 140 (137-145) mmol/L Potassium 5.6 H (3.5-5.1) mmol/L Chloride 104 (98-107) mmol/L Carbon Dioxide 25 (22-30) mmol/L Anion Gap 16.6 H (5-15) MEQ/L BUN 29 H (9-20) mg/dL Creatinine 2.54 H (0.66-1.25) mg/dL Estimated GFR 25.9 ML/MIN Glucose 291 H (74-106) mg/dL Lactic Acid 1.2 (0.4-2.0) Calcium 9.2 (8.4-10.2) mg/dL Total Bilirubin 0.40 (0.2-1.3) mg/dL AST 27 (17-59) U/L ALT 18 (0-50) U/L Alkaline Phosphatase 84 (38-126) U/L Troponin I (0.000-0.034) ng/mL NT-Pro-B Natriuret Pep (<300) pg/mL Serum Total Protein 7.6 (6.3-8.2) g/dL Albumin 4.0 (3.5-5.0) g/dL Urine Color (Yellow) Urine Appearance (Clear) Urine pH (4.6-8.0) Ur Specific Oil Trough (1.005-1.030) Urine Protein (Negative) Urine Glucose (UA) (Negative) mg/dL Urine Ketones (Negative) Urine Blood (Negative) Urine Nitrite (Negative) Urine Bilirubin (Negative) Urine Urobilinogen (0.2) mg/dL Ur Leukocyte Esterase (Negative) U Hyaline Cast (Auto) (0-2) /LPF Urine Microscopic RBC (0-5) /HPF Urine Microscopic WBC (0-5) /HPF Ur Epithelial Cells (None Seen) /HPF Urine Bacteria (None Seen) /HPF Urine Culture Reflexed (NO) Monoscreen (NEGATIVE) Influenza Type A Ag (NEGATIVE) Influenza Type B Ag (NEGATIVE) RSV (PCR) (NEGATIVE) SARS-CoV-2 (PCR) (NEGATIVE) Group A Strep Antibody (NEGATIVE) - Progress Progress: re-examined Air Movement: fair Progress Note: 02/12/23 12:08 Chest x-ray was interpreted by the radiologist which shows a left lower lobe subtle haziness present. This patient's medical issue is 1 of high complexity. The level of complexity and the work-up performed is based on review of the patient's past medical history, review of the patient's medication list, review the patient's drug allergy list, history of present illness and physical findings on examination. The work-up in this patient includes placement of intravenous line, performing a lactic acid level, CBC, CMP, troponin level, twelve-lead EKG, chest x-ray, COVID/RSV/influenza A, B swabs, group A strep swab, monotest and urinalysis. 02/12/23 13:23 The patient appears to have a haziness/early infiltrate left lower lobe suggesting pneumonia. I spoke with Dr. Espana who is our telehospitalist. He agrees that the patient should be admitted in the hospital. Patient was hypoxic as well we will keep him on oxygen 2 L nasal cannula as well as have respirator y therapy eval and manage in the hospital his respiratory status, provide him with Rocephin and azithromycin intravenously. Dr. Espana requested that I perform a noncontrasted CT of the chest. He can be transferred to the floor once the CT of the chest has been performed. He stated that the patient did not have to wait here in the emergency department for the report to return. Blood Culture(s) Obtained: Yes Antibiotics given: Yes Discussed with : Alex Counseled pt/family regarding: lab results, diagnosis, rad results Medical Desision Making - Independent Historian Additional History obtained from: Family - External Record(s) Reviewed Records reviewed as a part of evaluation & management: Inpatient - Discussion of managment Reviewed:: Test results, Need for additional workup Agreed on:: Treatment plan, decision to admit Will see patient: in hospital - Diagnostic Testing Diagnostic test were ordered, analyzed, and reviewed by me: Yes Radiological Interpretation: Reviewed by me, Teleradiologist Report - Risk of complications The pt has a high risk of morbidity or mortality based on: Decision regarding hospitilization or escalation of hosp level of care - Departure Departure Disposition: In-patient Admission Clinical Impression: Hypoxia, Shortness of breath, Left lower lobe pulmonary infiltrate, Acute on chronic renal failure Condition: Fair Critical Care Time: No Referrals: [facility] [Primary Care Provider] - Follow up/PCP as directed
[2023-02-12] MEDS ORDERED: Sodium Chloride 0.9% 1000 ML 1,000 ML IV SCH (10:45)
--- NOTE | 2023-02-12 11:52 | XRAY ---
CLINICAL HISTORY:Cough; fever COMPARISON:None. TECHNIQUE:X-ray of the chest, AP portable. FINDINGS: Poor inspiratory effort. Subtle haze is noted in the left lower zone. Bilateral perihilar vascular congestion is seen. Cardiac size is normal. Midline sternotomy sutures with surgical [place] seen overlying heart, representing intervention. Left costophrenic angle is obscured. Right costophrenic angle is sharp. IMPRESSION: Subtle haze is noted in the left lower zone, would recommend clinical correlation to rule out pulmonary infection. Electronically Signed by: Chantel Payan MD. (02/12/2023 10:51:11 [employer]PEDITION[employer] FIGHTING [employer])
[2023-02-12 11:57] LABS: BASOPHIL % 0.7 % (0.0-0.4); Basophil (Absolute #) 0.14 x10^3/uL (0-0.4); Eosinophil % 0.3 % (0.00-5.0); Eosinophil (Absolute #) 0.07 x10^3/uL (0-0.5); Hematocrit 35.1 % (42-50); Hemoglobin 11.2 g/dL (12.5-18.0); IMMATURE GRAN % 1.5 % (0.00-0.4); Lymphocyte (Absolute #) 0.91 x10^3/uL (1.0-4.6); Lymphocytes % 4.5 % (24.0-44.0); Mean Cell Volume 89.3 fL (78-100); Mean Corpuscular Hemoglobin 28.5 pg (26-32); Mean Corpuscular Hgb Concent. 31.9 g/dL (32-36); Mean Platelet Volume 11.8 fL (7.5-11.0); Monocytes % 3.5 % (0.0-12.0); Neutrophil % 89.5 % (36.0-66.0); Platelet Count 266 x10^3/uL (150-450); Red Blood Count 3.93 x10^6/uL (4.1-5.6); Red Cell Distribution Width 14.5 % (11.5-14.0); White Blood Count 20.2 x10^3/uL (4.0-10.5)
[2023-02-12] MEDS ORDERED: ROCEPHIN 1 Gm-D5w 50 ml Bag** 1 G/50 ML IVPB IV STA (12:10)
[2023-02-12 12:11] LABS: ANION GAP 16.6 MEQ/L (5-15); BILIRUBIN,TOTAL 0.4 mg/dL (0.2-1.3); Calcium 9.2 mg/dL (8.4-10.2); Creatinine 1 2.54 mg/dL (0.66-1.25); EST GLOMERULAR FILTRATION RATE 25.9 ML/MIN; Potassium 5.6 mmol/L (3.5-5.1); Total Protein 7.6 g/dL (6.3-8.2)
[2023-02-12] MEDS ORDERED: ROCEPHIN 1 Gm-D5w 50 ml Bag** 1 G/50 ML IVPB IV ONE (12:18)
[2023-02-12 12:36] LABS: INFLUENZA A NEGATIVE (NEGATIVE); INFLUENZA B NEGATIVE (NEGATIVE); RESPIRATORY SYNCTIAL VIRUS NEGATIVE (NEGATIVE); SARS-CoV-2 Xpert Express NEGATIVE (NEGATIVE)
[2023-02-12 13:09] LABS: Appearance Clear (Clear); Bacteria None Seen /HPF (None Seen); Bilirubin Negative (Negative); Blood Negative (Negative); Epithelial Cells None Seen /HPF (None Seen); Glucose, Urine >=1000 mg/dL (Negative); Hyaline Casts NONE SEEN /LPF (0-2); Ketones Negative (Negative); Leukocyte Esterase Negative (Negative); Nitrite Negative (Negative); Ph 7.5 (4.6-8.0); Protein,Urine Dip 30 (Negative); RBC 0-2 /HPF (0-5); Urobilinogen 0.2 mg/dL (0.2); WBC 0-2 /HPF (0-5)
[2023-02-12 13:10] LABS: ADD URINE CULTURE? NO (NO)
--- NOTE | 2023-02-12 14:24 | XRAY ---
CLINICAL HISTORY:Cough; shortness of air COMPARISON:12/15/2022. TECHNIQUE:Contiguous 3.[address] images of the chest were acquired without intravenous contrast. Coronal and sagittal reconstructions were obtained. FINDINGS: Inhomogenous patchy of consolidation with air bronchogram noted in left basal posterior segment interval newly seen since prior study, findings are suggesting pneumonic consolidation could be secondary to aspiration, clinical correlation recommended. Sternotomy with wires is seen. Scattered areas of patchy fibrosis, cystic changes and calcified nodular are stationary since prior study, sequela of old insult. No free or encysted pleural effusion. Heart is enlarged in size but there is no pericardial effusion. Aortic atheromatous plaques and coronary vessels calcifications are seen. No pathologically enlarged r axillary lymph node identified. There is no definite mass lesion in the chest wall. Degenerative changes of the visulazed spine. No osseous abnormality detected. Scanned upper abdomen is unremarkable. IMPRESSION: 1. Interval newly seen left lower lobe peripheral posterior dependant inhomogeneous pneumonic consolidation can be secondary to aspiration, clinical correlation recommended. 2. Rest of the findings are stationary since prior study. 3. Clinical correlation and follow up recommended. Electronically Signed by: Chantel Payan MD. (02/12/2023 13:23:40 [employer])
--- NOTE | 2023-02-12 14:26 | PCM.HP ---
History of Present Illness - Chief Complaint Chief Complaint: cough, shortness of breath Date: 02/12/23 History of Present Illness: is a 83 year old male patient Patient has a history of hypertension, anemia, diabetes, gastroesophageal reflux disease, coronary disease (cardiac stents and CABG) COPD/asthma, depression, and he is on Eliquis daily. He presented with a 2-day history of cough, mild shortness of air and increasing fatigue. He denies chest pain. He denies abdominal pain and he denies nausea vomiting diarrhea. His room air oxygenation saturation level upon arrival to the emergency department was 89%. 2 L of oxygen was placed via nasal cannula and his oxygen saturation increased to 97% in the ER. Patient was recently placed on Keflex for treatment of right second digit cellulitis. He denies CP, ABd. pain, N/V/D. He was started on rocephin and azithromycin in the ER. Will continue these meds. - Review of Systems Constitutional: No Fever, No Chills Eyes: No Symptoms Ears, Nose, & Throat: No Symptoms Respiratory: Cough, Short Of Breath Cardiac: No Chest Pain, No Edema, No Syncope Abdominal/Gastrointestinal: No Abdominal Pain, No Nausea, No Vomiting, No Diarrhea Genitourinary Symptoms: No Dysuria Musculoskeletal: No Back Pain, No Neck Pain Skin: No Rash Neurological: No Dizziness, No Focal Weakness, No Sensory Changes Psychological: No Symptoms Endocrine: No Symptoms Hematologic/Lymphatic: No Symptoms Immunological/Allergic: No Symptoms Medications & Allergies Home Medications: Home Medication List Amlodipine Besylate 5 mg [Norvasc 5 mg] 10 mg PO DAILY 05/16/22 [History Confirmed 02/12/23] Apixaban [Eliquis 5 mg Tablet] 5 mg PO BID 05/16/22 [History Confirmed 02/12/23] Bimatoprost 0.01% [Lumigan 0.01% 2.5 ml] 1 drop OP HS 05/16/22 [History Confirmed 02/12/23] Hydrocodone/Acetaminophen [Hydrocodone-Acetamin 10-325 mg] 1 tab PO Q6HPRN PRN 05/16/22 [History Confirmed 02/12/23] Isosorbide Mononitrate 30 mg [Imdur 30 MG] 30 mg PO DAILY 05/16/22 [History Confirmed 02/12/23] Metformin HCl 500 mg [Glucophage 500 MG] 1,000 mg PO CLARIFY 05/16/22 [History Confirmed 02/12/23] Methylphenidate 5 mg [Ritalin 5 MG] 20 mg PO QAM 05/16/22 [History Confirmed 02/12/23] Metoprolol Tartrate 25 mg [Lopressor 25MG Tab] 25 mg PO BID 05/16/22 [History Confirmed 02/12/23] Multivitamin [Multivitamins] 1 tab PO DAILY 05/16/22 [History Confirmed 02/12/23] Omeprazole 40 mg PO DAILY 05/16/22 [History Confirmed 02/12/23] Pregabalin 50 mg [Lyrica 50MG] 150 mg PO CLARIFY 05/16/22 [History Confirmed 02/12/23] Tamsulosin HCl 0.4 mg [Flomax 0.4 MG] 0.4 mg PO DAILY 05/16/22 [History Confirmed 02/12/23] Albuterol 2.5 mg/3 ml Neb [Proventil 2.5 mg/3 ml Neb] 1 neb IH DAILY PRN PRN 07/08/22 [History Confirmed 02/12/23] Cephalexin Mh 500 mg [Keflex 500 mg] 500 mg PO TID #21 cap 01/08/23 [Rx Confirmed 02/12/23] Dapagliflozin Propanediol [Farxiga] 10 mg PO DAILY 01/08/23 [History Confirmed 02/12/23] Ferrous Sulfate 325 mg [Feosol 325 mg] 325 mg PO DAILY 01/08/23 [History Confirmed 02/12/23] Furosemide 20 mg [Lasix 20 mg] 20 mg PO DAILY 01/08/23 [History Confirmed 02/12/23] Insulin Glargine/Lixisenatide [Soliqua 100 Unit-33 Mcg/ml Pen] 15 units SQ DAILY 01/08/23 [History Confirmed 02/12/23] Nitroglycerin 0.4 mg Tablet [Nitrostat 0.4 MG Tablet] 0.4 mg PO UD 01/08/23 [History Confirmed 02/12/23] Sucralfate 1 gm [Carafate 1 GM] 1 gm PO QID 01/08/23 [History Confirmed 02/12/23] Albuterol/Ipratropium 3ml Neb* [DUONEB 0.5-3 MG/3 ml Neb] 3 ml IH QID #60 ml 01/15/23 [Rx Confirmed 02/12/23] Allopurinol 300 mg [Zyloprim 300 mg] 1 tab PO DAILY 02/12/23 [History Confirmed 02/12/23] Fluticasone/Umeclidin/Vilanter [Trelegy Ellipta 100-62.5-25] 1 puff PO DAILY 02/12/23 [History Confirmed 02/12/23] Allergies/Adverse Reactions: Allergies Allergy/AdvReac Type Severity Reaction Status Date / Time Iodinated Contrast Media Allergy Intermediate unknown- Verified 02/12/23 10:30 [Iodinated Contrast Media - hives IV Dye] morphine Allergy Intermediate confusion Verified 02/12/23 10:30 and combative hydromorphone HCl AdvReac Intermediate confusion Verified 02/12/23 10:30 [From Dilaudid] and combative oxycodone HCl AdvReac Intermediate confusion/ Verified 02/12/23 10:30 [From OxyContin] combative - Past Medical History Past Medical History: Yes Neurological History: No Pertinent History ENT History: Cataracts, Glaucoma Cardiac History: Hypertension, Myocardial Infarction ([place]), Other Respiratory History: Asthma, COPD, Other Endocrine Medical History: Diabetes Type II Musculoskelatal History: Fractures GI Medical History: GERD, Gallbladder Disease History: Other Pyscho-Social History: Depression Male Reproductive Disorders: Prostate Problems Comment: COVID-19, L Wrist Fracture (1982), Open Heart Surgery (1993), LE fracture (unable to recall which side, 1959's), Low Back Pain, LB surgery (1994 with rods placed) - Past Surgical History Past Surgical History: Yes Neuro Surgical History: No Pertinent History Cardiac History: CABG, Cardiac Catheterization, Cardiac Stent Respiratory Surgery: Chest Surgery GI Surgical History: Appendectomy, Cholecystectomy Genitourinary Surgical Hx: No Pertinent History Musculskeletal Surgical Hx: Orthopedic Surgery Male Surgical History: No Pertinent History Other Surgical History: back surgery, fem pop, steriod injection in various joints, carpal tunnel surgery - Social History Smoking Status: Never smoker How long have you smoked: 1975 Exposure to second hand smoke: No Alcohol: None Drug Use: none - Physical Exam Vital Signs: Vital Signs - 24 hr Temp Pulse Resp BP BP Pulse Ox 02/12/23 13:01 75 17 90/37 02/12/23 12:31 77 17 107/81 98 02/12/23 12:00 90 17 144/58 94 L 02/12/23 11:31 92 H 14 127/66 02/12/23 11:00 96 H 19 83/58 02/12/23 10:45 92 L 02/12/23 10:26 98 H 20 130/45 92 L 02/12/23 10:03 99.3 F 104 H 23 130/45 89 L General Appearance: no apparent distress, alert Neurologic Exam: alert, oriented x 3, cooperative, normal mood/affect, nml cerebellar function, nml station & gait, sensation nml, No motor deficits Eye Exam: PERRL/EOMI, eyes nml inspection Ears, Nose, Throat Exam: normal ENT inspection, TMs normal, pharynx normal, moist mucous membranes Neck Exam: normal inspection, non-tender, supple, full range of motion Respiratory Exam: lungs clear, crackles/rales (BLLL), No respiratory distress Cardiovascular Exam: regular rate/rhythm, normal heart sounds, normal peripheral pulses Gastrointestinal/Abdomen Exam: soft, normal bowel sounds, No tenderness, No mass Back Exam: normal inspection, normal range of motion, No CVA tenderness, No vertebral tenderness Extremity Exam: normal inspection, normal range of motion, pelvis stable Skin Exam: normal color, warm, dry, No rash Lymphatic Exam: No adenopathy Results - Labs Lab/Micro Results: Lab Results-Last 24 Hours 02/12/23 02/12/23 02/12/23 Range/Units 10:45 11:56 11:56 WBC 20.2 H (4.0-10.5) x10^3/uL RBC 3.93 L (4.1-5.6) x10^6/uL Hgb 11.2 L (12.5-18.0) g/dL Hct 35.1 L (42-50) % MCV 89.3 (78-100) fL MCH 28.5 (26-32) pg MCHC 31.9 L (32-36) g/dL RDW 14.5 H (11.5-14.0) % Plt Count 266 (150-450) x10^3/uL MPV 11.8 H (7.5-11.0) fL Gran % 89.5 H (36.0-66.0) % Immature Gran % (Auto) 1.5 H (0.00-0.4) % Nucleat RBC Rel Count 0.0 (0.00-0.1) % Eos # (Auto) 0.07 (0-0.5) x10^3/uL Immature Gran # (Auto) 0.30 H (0.00-0.03) x10^3u/L Absolute Lymphs (auto) 0.91 L (1.0-4.6) x10^3/uL Absolute Monos (auto) 0.70 (0.0-1.3) x10^3/uL Absolute Nucleated RBC 0.00 (0.00-0.01) x10^3u/L Lymphocytes % 4.5 L (24.0-44.0) % Monocytes % 3.5 (0.0-12.0) % Eosinophils % 0.3 (0.00-5.0) % Basophils % 0.7 (0.0-0.4) % Absolute Granulocytes 18.10 H (1.4-6.9) x10^3/uL Basophils # 0.14 (0-0.4) x10^3/uL Sodium 140 (137-145) mmol/L Potassium 5.6 H (3.5-5.1) mmol/L Chloride 104 (98-107) mmol/L Carbon Dioxide 25 (22-30) mmol/L Anion Gap 16.6 H (5-15) MEQ/L BUN 29 H (9-20) mg/dL Creatinine 2.54 H (0.66-1.25) mg/dL Estimated GFR 25.9 ML/MIN Glucose 291 H (74-106) mg/dL Lactic Acid 1.2 (0.4-2.0) Calcium 9.2 (8.4-10.2) mg/dL Total Bilirubin 0.40 (0.2-1.3) mg/dL AST 27 (17-59) U/L ALT 18 (0-50) U/L Alkaline Phosphatase 84 (38-126) U/L Troponin I (0.000-0.034) ng/mL NT-Pro-B Natriuret Pep (<300) pg/mL Serum Total Protein 7.6 (6.3-8.2) g/dL Albumin 4.0 (3.5-5.0) g/dL Urine Color (Yellow) Urine Appearance (Clear) Urine pH (4.6-8.0) Ur Specific [place] (1.005-1.030) Urine Protein (Negative) Urine Glucose (UA) (Negative) mg/dL Urine Ketones (Negative) Urine Blood (Negative) Urine Nitrite (Negative) Urine Bilirubin (Negative) Urine Urobilinogen (0.2) mg/dL Ur Leukocyte Esterase (Negative) U Hyaline Cast (Auto) (0-2) /LPF Urine Microscopic RBC (0-5) /HPF Urine Microscopic WBC (0-5) /HPF Ur Epithelial Cells (None Seen) /HPF Urine Bacteria (None Seen) /HPF Urine Culture Reflexed (NO) Monoscreen (NEGATIVE) Influenza Type A Ag (NEGATIVE) Influenza Type B Ag (NEGATIVE) RSV (PCR) (NEGATIVE) SARS-CoV-2 (PCR) (NEGATIVE) Group A Strep Antibody (NEGATIVE) 02/12/23 02/12/23 02/12/23 Range/Units 11:56 11:56 11:56 WBC (4.0-10.5) x10^3/uL RBC (4.1-5.6) x10^6/uL Hgb (12.5-18.0) g/dL Hct (42-50) % MCV (78-100) fL MCH (26-32) pg MCHC (32-36) g/dL RDW (11.5-14.0) % Plt Count (150-450) x10^3/uL MPV (7.5-11.0) fL Gran % (36.0-66.0) % Immature Gran % (Auto) (0.00-0.4) % Nucleat RBC Rel Count (0.00-0.1) % Eos # (Auto) (0-0.5) x10^3/uL Immature Gran # (Auto) (0.00-0.03) x10^3u/L Absolute Lymphs (auto) (1.0-4.6) x10^3/uL Absolute Monos (auto) (0.0-1.3) x10^3/uL Absolute Nucleated RBC (0.00-0.01) x10^3u/L Lymphocytes % (24.0-44.0) % Monocytes % (0.0-12.0) % Eosinophils % (0.00-5.0) % Basophils % (0.0-0.4) % Absolute Granulocytes (1.4-6.9) x10^3/uL Basophils # (0-0.4) x10^3/uL Sodium (137-145) mmol/L Potassium (3.5-5.1) mmol/L Chloride (98-107) mmol/L Carbon Dioxide (22-30) mmol/L Anion Gap (5-15) MEQ/L BUN (9-20) mg/dL Creatinine (0.66-1.25) mg/dL Estimated GFR ML/MIN Glucose (74-106) mg/dL Lactic Acid (0.4-2.0) Calcium (8.4-10.2) mg/dL Total Bilirubin (0.2-1.3) mg/dL AST (17-59) U/L ALT (0-50) U/L Alkaline Phosphatase (38-126) U/L Troponin I < 0.012 (0.000-0.034) ng/mL NT-Pro-B Natriuret Pep 1150 (<300) pg/mL Serum Total Protein (6.3-8.2) g/dL Albumin (3.5-5.0) g/dL Urine Color (Yellow) Urine Appearance (Clear) Urine pH (4.6-8.0) Ur Specific [place] (1.005-1.030) Urine Protein (Negative) Urine Glucose (UA) (Negative) mg/dL Urine Ketones (Negative) Urine Blood (Negative) Urine Nitrite (Negative) Urine Bilirubin (Negative) Urine Urobilinogen (0.2) mg/dL Ur Leukocyte Esterase (Negative) U Hyaline Cast (Auto) (0-2) /LPF Urine Microscopic RBC (0-5) /HPF Urine Microscopic WBC (0-5) /HPF Ur Epithelial Cells (None Seen) /HPF Urine Bacteria (None Seen) /HPF Urine Culture Reflexed (NO) Monoscreen (NEGATIVE) Influenza Type A Ag (NEGATIVE) Influenza Type B Ag (NEGATIVE) RSV (PCR) (NEGATIVE) SARS-CoV-2 (PCR) (NEGATIVE) Group A Strep Antibody NOT DETECTED (NEGATIVE) 02/12/23 02/12/23 02/12/23 Range/Units 11:56 11:56 12:57 WBC (4.0-10.5) x10^3/uL RBC (4.1-5.6) x10^6/uL Hgb (12.5-18.0) g/dL Hct (42-50) % MCV (78-100) fL MCH (26-32) pg MCHC (32-36) g/dL RDW (11.5-14.0) % Plt Count (150-450) x10^3/uL MPV (7.5-11.0) fL Gran % (36.0-66.0) % Immature Gran % (Auto) (0.00-0.4) % Nucleat RBC Rel Count (0.00-0.1) % Eos # (Auto) (0-0.5) x10^3/uL Immature Gran # (Auto) (0.00-0.03) x10^3u/L Absolute Lymphs (auto) (1.0-4.6) x10^3/uL Absolute Monos (auto) (0.0-1.3) x10^3/uL Absolute Nucleated RBC (0.00-0.01) x10^3u/L Lymphocytes % (24.0-44.0) % Monocytes % (0.0-12.0) % Eosinophils % (0.00-5.0) % Basophils % (0.0-0.4) % Absolute Granulocytes (1.4-6.9) x10^3/uL Basophils # (0-0.4) x10^3/uL Sodium (137-145) mmol/L Potassium (3.5-5.1) mmol/L Chloride (98-107) mmol/L Carbon Dioxide (22-30) mmol/L Anion Gap (5-15) MEQ/L BUN (9-20) mg/dL Creatinine (0.66-1.25) mg/dL Estimated GFR ML/MIN Glucose (74-106) mg/dL Lactic Acid (0.4-2.0) Calcium (8.4-10.2) mg/dL Total Bilirubin (0.2-1.3) mg/dL AST (17-59) U/L ALT (0-50) U/L Alkaline Phosphatase (38-126) U/L Troponin I (0.000-0.034) ng/mL NT-Pro-B Natriuret Pep (<300) pg/mL Serum Total Protein (6.3-8.2) g/dL Albumin (3.5-5.0) g/dL Urine Color Yellow (Yellow) Urine Appearance Clear (Clear) Urine pH 7.5 (4.6-8.0) Ur Specific [place] 1.020 (1.005-1.030) Urine Protein 30 (Negative) Urine Glucose (UA) >=1000 A (Negative) mg/dL Urine Ketones Negative (Negative) Urine Blood Negative (Negative) Urine Nitrite Negative (Negative) Urine Bilirubin Negative (Negative) Urine Urobilinogen 0.2 (0.2) mg/dL Ur Leukocyte Esterase Negative (Negative) U Hyaline Cast (Auto) NONE SEEN (0-2) /LPF Urine Microscopic RBC 0-2 (0-5) /HPF Urine Microscopic WBC 0-2 (0-5) /HPF Ur Epithelial Cells None Seen (None Seen) /HPF Urine Bacteria None Seen (None Seen) /HPF Urine Culture Reflexed NO (NO) Monoscreen NEGATIVE (NEGATIVE) Influenza Type A Ag NEGATIVE (NEGATIVE) Influenza Type B Ag NEGATIVE (NEGATIVE) RSV (PCR) NEGATIVE (NEGATIVE) SARS-CoV-2 (PCR) NEGATIVE (NEGATIVE) Group A Strep Antibody (NEGATIVE) - Radiology Impressions Radiology Exams & Impressions: Radiology Procedures Category Date Time Status CHEST 1 VIEW (PORTABLE) Stat Exams 02/12/23 10:46 Completed CHEST WITHOUT CONTRAST [CT] Stat Exams 02/12/23 13:22 Ordered Assessment/Plan (1) Pneumonia Current Visit: No Status: Acute Qualifiers: Pneumonia type: due to unspecified organism Laterality: bilateral Lung location: unspecified part of lung Qualified Code(s): J18.9 - Pneumonia, unspecified organism Assessment & Plan: - appears to be pneumonia - Ceftriaxone and azithromycin - O2 keep oxygen > 92 % - IS Q2 hr Code(s): J18.9 - PNEUMONIA, UNSPECIFIED ORGANISM (2) Shortness of breath Current Visit: Yes Status: Acute Assessment & Plan: - Chest XR 02/12/23 IMPRESSION: Subtle haze is noted in the left lower zone, would recommend clinical correlation to rule out pulmonary infection. -CT chest 02/12/23 1. Interval newly seen left lower lobe peripheral posterior dependant inhomogeneous pneumonic consolidation can be secondary to aspiration, clinical correlation recommended. 2. Rest of the findings are stationary since prior study. 3. Clinical correlation and follow up recommended. - Pulm consult- Dr. Baird notified. - Rocpehin and azithromycin - On 2 LNC - Baseline room air - RT eval and treat Code(s): R06.02 - SHORTNESS OF BREATH (3) Type 2 diabetes mellitus Current Visit: No Status: Chronic Qualifiers: Assessment & Plan: - continue lantus 15 units daily - S/S insulin with meals (4) Hypertension Current Visit: Yes Status: Acute Assessment & Plan: - controlled - Continue home meds Code(s): I10 - ESSENTIAL (PRIMARY) HYPERTENSION
[2023-02-12] MEDS ORDERED: Zofran 4 MG/2 ML VIAL IV PRN (14:55)
[2023-02-12] MEDS ORDERED: TYLENOL 325 MG PO PRN (14:55)
[2023-02-12] MEDS ORDERED: VENTOLIN COMMON CANISTER IH PRN (15:18)
[2023-02-12] MEDS ORDERED: PROVENTIL 2.5 MG/3 ML NEB IH PRN (15:18)
[2023-02-12] MEDS ORDERED: HYDROCODONE-ACETAMIN 10-325 MG PO PRN (15:23)
[2023-02-12] MEDS: Sodium Chloride 0.9% 1000 ML 1,000 ML IV SCH (15:28)
[2023-02-12] MEDS ORDERED: Lyrica 50MG PO SCH (15:30)
[2023-02-12] MEDS ORDERED: DUONEB 0.5-3 MG/3 ml Neb IH ONE (15:58)
[2023-02-12] MEDS ORDERED: Zithromax 500 MG/ 250 ML NaCl Premix 500 MG/250 ML IVPB IV SCH (16:00)
[2023-02-12] MEDS: DUONEB 0.5-3 MG/3 ml Neb IH SCH ×2 (16:17→19:20)
[2023-02-12] MEDS: Carafate 1 GM PO SCH ×2 (16:27→21:13)
[2023-02-12] MEDS: HUMALOG SQ PRN ×2 (16:33→21:13)
[2023-02-12] MEDS: ELIQUIS 2.5 MG TABLET PO SCH (21:13)
[2023-02-12] MEDS: Lopressor 25MG Tab PO SCH (21:13)
[2023-02-12] MEDS: LUMIGAN 0.01% 2.5 ML OP SCH (21:13)
[2023-02-12] MEDS: Lantus Insulin SQ SCH (21:14)
[2023-02-13] MEDS: Sodium Chloride 0.9% 1000 ML 1,000 ML IV SCH (04:37)
[2023-02-13 05:32] LABS: Absolute Neutrophil Ct (ANC) 12.85 x10^3/uL (1.4-6.9); BASOPHIL % 0.9 % (0.0-0.4); Basophil (Absolute #) 0.13 x10^3/uL (0-0.4); Eosinophil % 1.8 % (0.00-5.0); Eosinophil (Absolute #) 0.27 x10^3/uL (0-0.5); Hematocrit 32.4 % (42-50); Hemoglobin 9.9 g/dL (12.5-18.0); IMMATURE GRAN # 0.13 x10^3u/L (0.00-0.03); IMMATURE GRAN % 0.9 % (0.00-0.4); Lymphocyte (Absolute #) 1.28 x10^3/uL (1.0-4.6); Lymphocytes % 8.4 % (24.0-44.0); Mean Cell Volume 90.5 fL (78-100); Mean Corpuscular Hemoglobin 27.7 pg (26-32); Mean Corpuscular Hgb Concent. 30.6 g/dL (32-36); Mean Platelet Volume 11.2 fL (7.5-11.0); Monocyte (Absolute #) 0.53 x10^3/uL (0.0-1.3); Monocytes % 3.5 % (0.0-12.0); Neutrophil % 84.5 % (36.0-66.0); Platelet Count 231 x10^3/uL (150-450); Red Blood Count 3.58 x10^6/uL (4.1-5.6); Red Cell Distribution Width 14.6 % (11.5-14.0); White Blood Count 15.2 x10^3/uL (4.0-10.5)
[2023-02-13 06:07] LABS: ALBUMIN 3.3 g/dL (3.5-5.0); ANION GAP 11.7 MEQ/L (5-15); BILIRUBIN,TOTAL 0.3 mg/dL (0.2-1.3); Calcium 8.8 mg/dL (8.4-10.2); Creatinine 1 2.11 mg/dL (0.66-1.25); EST GLOMERULAR FILTRATION RATE 32.1 ML/MIN; Potassium 4.6 mmol/L (3.5-5.1); Total Protein 6.6 g/dL (6.3-8.2)
[2023-02-13] MEDS: DUONEB 0.5-3 MG/3 ml Neb IH SCH ×4 (07:16→18:35)
[2023-02-13] MEDS: Carafate 1 GM PO SCH ×4 (07:34→21:31)
[2023-02-13] MEDS: HUMALOG SQ PRN ×4 (07:34→21:32)
--- NOTE | 2023-02-13 08:15 | PCM.NOTE ---
Date and Time: 02/13/23 0809 Subjective Assessment: 02/12 is a 83 year old male patient Patient has a history of hypertension, anemia, diabetes, gastroesophageal reflux disease, coronary disease (cardiac stents and CABG) COPD/asthma, depression, and he is on Eliquis daily. He presented with a 2-day history of cough, mild shortness of air and increasing fatigue. He denies chest pain. He denies abdominal pain and he denies nausea vomiting diarrhea. His room air oxygenation saturation level upon arrival to the emergency department was 89%. 2 L of oxygen was placed via nasal cannula and his oxygen saturation increased to 97% in the ER. Patient was recently placed on Keflex for treatment of right second digit cellulitis. He denies CP, ABd. pain, N/V/D. He was started on rocephin and azithromycin in the ER. Will continue these meds. 02/13 Pt resting in bed. Oxygen continues to drop when he sleeps. May need qualified for home O2 if sxs do not improve. He explains he feels better today. He is wanting to go home today. Discussed recommendations from Pulmonology and antibiotics changed. Will need to f/u with Pulm OP. Pt denies CP, Ad pain, N/V/D. - Review of Systems Constitutional: No Fever, No Chills Eyes: No Symptoms Ears, Nose, & Throat: No Symptoms Respiratory: Short Of Breath (with need for 2LNC), No Cough Cardiac: No Chest Pain, No Edema, No Syncope Abdominal/Gastrointestinal: No Abdominal Pain, No Nausea, No Vomiting, No Diarrhea Genitourinary Symptoms: No Dysuria Musculoskeletal: No Back Pain, No Neck Pain Skin: No Rash Neurological: No Dizziness, No Focal Weakness, No Sensory Changes Psychological: No Symptoms Endocrine: No Symptoms Hematologic/Lymphatic: No Symptoms Immunological/Allergic: No Symptoms Objective Exam General Appearance: no apparent distress, alert Neurologic Exam: alert, oriented x 3, cooperative, normal mood/affect, nml cerebellar function, sensation nml, No motor deficits Skin Exam: normal color, warm, dry Eye Exam: PERRL, EOMI, eyes nml inspection Ears, Nose, Throat Exam: normal ENT inspection, pharynx normal, moist mucous membranes Neck Exam: normal inspection, non-tender, supple, full range of motion Respiratory Exam: crackles/rales (LLL), No respiratory distress Cardiovascular Exam: regular rate/rhythm, normal heart sounds Gastrointestinal/Abdomen Exam: soft, No tenderness, No mass Extremity Exam: normal inspection, normal range of motion Back Exam: normal inspection, normal range of motion, No CVA tenderness, No vertebral tenderness Male Genitalia Exam: deferred Rectal Exam: deferred OBJECTIVE DATA Vital Signs: Vital Signs - 24 hr Temp Pulse Resp BP BP Pulse Ox 02/13/23 07:40 71 16 95 02/13/23 07:14 98.0 F 66 22 146/61 95 02/13/23 04:00 97.8 F 65 18 130/65 93 L 02/12/23 23:53 97.9 F 66 19 129/57 92 L 02/12/23 19:54 98.5 F 81 13 117/53 94 L 02/12/23 19:31 88 18 92 L 02/12/23 16:17 84 18 94 L 02/12/23 15:27 98.9 F 93 H 18 148/66 94 L 02/12/23 14:37 90 17 153/68 02/12/23 13:31 90 23 87/53 02/12/23 13:01 75 17 90/37 02/12/23 12:31 77 17 107/81 98 02/12/23 12:00 90 17 144/58 94 L 02/12/23 11:31 92 H 14 127/66 02/12/23 11:00 96 H 19 83/58 02/12/23 10:45 92 L 02/12/23 10:26 98 H 20 130/45 92 L 02/12/23 10:03 99.3 F 104 H 23 130/45 89 L Pain Assessment - Last Documented Pain Intensity 0 Intake and Output: Intake & Output 02/10/23 02/11/23 02/12/23 02/13/23 11:59 11:59 11:59 11:59 Intake Total 613 Balance 613 Weight 91.172 kg 89.5 kg Lab Results: Lab Results-Last 24 Hours 02/12/23 02/12/23 02/12/23 Range/Units 10:45 11:56 11:56 WBC 20.2 H (4.0-10.5) x10^3/uL RBC 3.93 L (4.1-5.6) x10^6/uL Hgb 11.2 L (12.5-18.0) g/dL Hct 35.1 L (42-50) % MCV 89.3 (78-100) fL MCH 28.5 (26-32) pg MCHC 31.9 L (32-36) g/dL RDW 14.5 H (11.5-14.0) % Plt Count 266 (150-450) x10^3/uL MPV 11.8 H (7.5-11.0) fL Gran % 89.5 H (36.0-66.0) % Immature Gran % (Auto) 1.5 H (0.00-0.4) % Nucleat RBC Rel Count 0.0 (0.00-0.1) % Eos # (Auto) 0.07 (0-0.5) x10^3/uL Immature Gran # (Auto) 0.30 H (0.00-0.03) x10^3u/L Absolute Lymphs (auto) 0.91 L (1.0-4.6) x10^3/uL Absolute Monos (auto) 0.70 (0.0-1.3) x10^3/uL Absolute Nucleated RBC 0.00 (0.00-0.01) x10^3u/L Lymphocytes % 4.5 L (24.0-44.0) % Monocytes % 3.5 (0.0-12.0) % Eosinophils % 0.3 (0.00-5.0) % Basophils % 0.7 (0.0-0.4) % Absolute Granulocytes 18.10 H (1.4-6.9) x10^3/uL Basophils # 0.14 (0-0.4) x10^3/uL Sodium 140 (137-145) mmol/L Potassium 5.6 H (3.5-5.1) mmol/L Chloride 104 (98-107) mmol/L Carbon Dioxide 25 (22-30) mmol/L Anion Gap 16.6 H (5-15) MEQ/L BUN 29 H (9-20) mg/dL Creatinine 2.54 H (0.66-1.25) mg/dL Estimated GFR 25.9 ML/MIN Glucose 291 H (74-106) mg/dL POC Glucometer (74 to 106) mg/dL Hemoglobin A1c (4.5-6.0) % Lactic Acid 1.2 (0.4-2.0) Calcium 9.2 (8.4-10.2) mg/dL Total Bilirubin 0.40 (0.2-1.3) mg/dL AST 27 (17-59) U/L ALT 18 (0-50) U/L Alkaline Phosphatase 84 (38-126) U/L Troponin I (0.000-0.034) ng/mL NT-Pro-B Natriuret Pep (<300) pg/mL Serum Total Protein 7.6 (6.3-8.2) g/dL Albumin 4.0 (3.5-5.0) g/dL Urine Color (Yellow) Urine Appearance (Clear) Urine pH (4.6-8.0) Ur Specific [place] (1.005-1.030) Urine Protein (Negative) Urine Glucose (UA) (Negative) mg/dL Urine Ketones (Negative) Urine Blood (Negative) Urine Nitrite (Negative) Urine Bilirubin (Negative) Urine Urobilinogen (0.2) mg/dL Ur Leukocyte Esterase (Negative) U Hyaline Cast (Auto) (0-2) /LPF Urine Microscopic RBC (0-5) /HPF Urine Microscopic WBC (0-5) /HPF Ur Epithelial Cells (None Seen) /HPF Urine Bacteria (None Seen) /HPF Urine Culture Reflexed (NO) Monoscreen (NEGATIVE) Influenza Type A Ag (NEGATIVE) Influenza Type B Ag (NEGATIVE) RSV (PCR) (NEGATIVE) SARS-CoV-2 (PCR) (NEGATIVE) Group A Strep Antibody (NEGATIVE) 02/12/23 02/12/23 02/12/23 Range/Units 11:56 11:56 11:56 WBC (4.0-10.5) x10^3/uL RBC (4.1-5.6) x10^6/uL Hgb (12.5-18.0) g/dL Hct (42-50) % MCV (78-100) fL MCH (26-32) pg MCHC (32-36) g/dL RDW (11.5-14.0) % Plt Count (150-450) x10^3/uL MPV (7.5-11.0) fL Gran % (36.0-66.0) % Immature Gran % (Auto) (0.00-0.4) % Nucleat RBC Rel Count (0.00-0.1) % Eos # (Auto) (0-0.5) x10^3/uL Immature Gran # (Auto) (0.00-0.03) x10^3u/L Absolute Lymphs (auto) (1.0-4.6) x10^3/uL Absolute Monos (auto) (0.0-1.3) x10^3/uL Absolute Nucleated RBC (0.00-0.01) x10^3u/L Lymphocytes % (24.0-44.0) % Monocytes % (0.0-12.0) % Eosinophils % (0.00-5.0) % Basophils % (0.0-0.4) % Absolute Granulocytes (1.4-6.9) x10^3/uL Basophils # (0-0.4) x10^3/uL Sodium (137-145) mmol/L Potassium (3.5-5.1) mmol/L Chloride (98-107) mmol/L Carbon Dioxide (22-30) mmol/L Anion Gap (5-15) MEQ/L BUN (9-20) mg/dL Creatinine (0.66-1.25) mg/dL Estimated GFR ML/MIN Glucose (74-106) mg/dL POC Glucometer (74 to 106) mg/dL Hemoglobin A1c (4.5-6.0) % Lactic Acid (0.4-2.0) Calcium (8.4-10.2) mg/dL Total Bilirubin (0.2-1.3) mg/dL AST (17-59) U/L ALT (0-50) U/L Alkaline Phosphatase (38-126) U/L Troponin I < 0.012 (0.000-0.034) ng/mL NT-Pro-B Natriuret Pep 1150 (<300) pg/mL Serum Total Protein (6.3-8.2) g/dL Albumin (3.5-5.0) g/dL Urine Color (Yellow) Urine Appearance (Clear) Urine pH (4.6-8.0) Ur Specific [place] (1.005-1.030) Urine Protein (Negative) Urine Glucose (UA) (Negative) mg/dL Urine Ketones (Negative) Urine Blood (Negative) Urine Nitrite (Negative) Urine Bilirubin (Negative) Urine Urobilinogen (0.2) mg/dL Ur Leukocyte Esterase (Negative) U Hyaline Cast (Auto) (0-2) /LPF Urine Microscopic RBC (0-5) /HPF Urine Microscopic WBC (0-5) /HPF Ur Epithelial Cells (None Seen) /HPF Urine Bacteria (None Seen) /HPF Urine Culture Reflexed (NO) Monoscreen (NEGATIVE) Influenza Type A Ag (NEGATIVE) Influenza Type B Ag (NEGATIVE) RSV (PCR) (NEGATIVE) SARS-CoV-2 (PCR) (NEGATIVE) Group A Strep Antibody NOT DETECTED (NEGATIVE) 02/12/23 02/12/23 02/12/23 Range/Units 11:56 11:56 11:56 WBC (4.0-10.5) x10^3/uL RBC (4.1-5.6) x10^6/uL Hgb (12.5-18.0) g/dL Hct (42-50) % MCV (78-100) fL MCH (26-32) pg MCHC (32-36) g/dL RDW (11.5-14.0) % Plt Count (150-450) x10^3/uL MPV (7.5-11.0) fL Gran % (36.0-66.0) % Immature Gran % (Auto) (0.00-0.4) % Nucleat RBC Rel Count (0.00-0.1) % Eos # (Auto) (0-0.5) x10^3/uL Immature Gran # (Auto) (0.00-0.03) x10^3u/L Absolute Lymphs (auto) (1.0-4.6) x10^3/uL Absolute Monos (auto) (0.0-1.3) x10^3/uL Absolute Nucleated RBC (0.00-0.01) x10^3u/L Lymphocytes % (24.0-44.0) % Monocytes % (0.0-12.0) % Eosinophils % (0.00-5.0) % Basophils % (0.0-0.4) % Absolute Granulocytes (1.4-6.9) x10^3/uL Basophils # (0-0.4) x10^3/uL Sodium (137-145) mmol/L Potassium (3.5-5.1) mmol/L Chloride (98-107) mmol/L Carbon Dioxide (22-30) mmol/L Anion Gap (5-15) MEQ/L BUN (9-20) mg/dL Creatinine (0.66-1.25) mg/dL Estimated GFR ML/MIN Glucose (74-106) mg/dL POC Glucometer (74 to 106) mg/dL Hemoglobin A1c 8.81 H (4.5-6.0) % Lactic Acid (0.4-2.0) Calcium (8.4-10.2) mg/dL Total Bilirubin (0.2-1.3) mg/dL AST (17-59) U/L ALT (0-50) U/L Alkaline Phosphatase (38-126) U/L Troponin I (0.000-0.034) ng/mL NT-Pro-B Natriuret Pep (<300) pg/mL Serum Total Protein (6.3-8.2) g/dL Albumin (3.5-5.0) g/dL Urine Color (Yellow) Urine Appearance (Clear) Urine pH (4.6-8.0) Ur Specific [place] (1.005-1.030) Urine Protein (Negative) Urine Glucose (UA) (Negative) mg/dL Urine Ketones (Negative) Urine Blood (Negative) Urine Nitrite (Negative) Urine Bilirubin (Negative) Urine Urobilinogen (0.2) mg/dL Ur Leukocyte Esterase (Negative) U Hyaline Cast (Auto) (0-2) /LPF Urine Microscopic RBC (0-5) /HPF Urine Microscopic WBC (0-5) /HPF Ur Epithelial Cells (None Seen) /HPF Urine Bacteria (None Seen) /HPF Urine Culture Reflexed (NO) Monoscreen NEGATIVE (NEGATIVE) Influenza Type A Ag NEGATIVE (NEGATIVE) Influenza Type B Ag NEGATIVE (NEGATIVE) RSV (PCR) NEGATIVE (NEGATIVE) SARS-CoV-2 (PCR) NEGATIVE (NEGATIVE) Group A Strep Antibody (NEGATIVE) 02/12/23 02/12/23 02/12/23 Range/Units 12:57 14:40 15:00 WBC (4.0-10.5) x10^3/uL RBC (4.1-5.6) x10^6/uL Hgb (12.5-18.0) g/dL Hct (42-50) % MCV (78-100) fL MCH (26-32) pg MCHC (32-36) g/dL RDW (11.5-14.0) % Plt Count (150-450) x10^3/uL MPV (7.5-11.0) fL Gran % (36.0-66.0) % Immature Gran % (Auto) (0.00-0.4) % Nucleat RBC Rel Count (0.00-0.1) % Eos # (Auto) (0-0.5) x10^3/uL Immature Gran # (Auto) (0.00-0.03) x10^3u/L Absolute Lymphs (auto) (1.0-4.6) x10^3/uL Absolute Monos (auto) (0.0-1.3) x10^3/uL Absolute Nucleated RBC (0.00-0.01) x10^3u/L Lymphocytes % (24.0-44.0) % Monocytes % (0.0-12.0) % Eosinophils % (0.00-5.0) % Basophils % (0.0-0.4) % Absolute Granulocytes (1.4-6.9) x10^3/uL Basophils # (0-0.4) x10^3/uL Sodium (137-145) mmol/L Potassium (3.5-5.1) mmol/L Chloride (98-107) mmol/L Carbon Dioxide (22-30) mmol/L Anion Gap (5-15) MEQ/L BUN (9-20) mg/dL Creatinine (0.66-1.25) mg/dL Estimated GFR ML/MIN Glucose (74-106) mg/dL POC Glucometer 209 H (74 to 106) mg/dL Hemoglobin A1c (4.5-6.0) % Lactic Acid (0.4-2.0) Calcium (8.4-10.2) mg/dL Total Bilirubin (0.2-1.3) mg/dL AST (17-59) U/L ALT (0-50) U/L Alkaline Phosphatase (38-126) U/L Troponin I < 0.012 (0.000-0.034) ng/mL NT-Pro-B Natriuret Pep (<300) pg/mL Serum Total Protein (6.3-8.2) g/dL Albumin (3.5-5.0) g/dL Urine Color Yellow (Yellow) Urine Appearance Clear (Clear) Urine pH 7.5 (4.6-8.0) Ur Specific [place] 1.020 (1.005-1.030) Urine Protein 30 (Negative) Urine Glucose (UA) >=1000 A (Negative) mg/dL Urine Ketones Negative (Negative) Urine Blood Negative (Negative) Urine Nitrite Negative (Negative) Urine Bilirubin Negative (Negative) Urine Urobilinogen 0.2 (0.2) mg/dL Ur Leukocyte Esterase Negative (Negative) U Hyaline Cast (Auto) NONE SEEN (0-2) /LPF Urine Microscopic RBC 0-2 (0-5) /HPF Urine Microscopic WBC 0-2 (0-5) /HPF Ur Epithelial Cells None Seen (None Seen) /HPF Urine Bacteria None Seen (None Seen) /HPF Urine Culture Reflexed NO (NO) Monoscreen (NEGATIVE) Influenza Type A Ag (NEGATIVE) Influenza Type B Ag (NEGATIVE) RSV (PCR) (NEGATIVE) SARS-CoV-2 (PCR) (NEGATIVE) Group A Strep Antibody (NEGATIVE) 02/12/23 02/12/23 02/13/23 Range/Units 19:35 20:50 05:16 WBC 15.2 H (4.0-10.5) x10^3/uL RBC 3.58 L (4.1-5.6) x10^6/uL Hgb 9.9 L (12.5-18.0) g/dL Hct 32.4 L (42-50) % MCV 90.5 (78-100) fL MCH 27.7 (26-32) pg MCHC 30.6 L (32-36) g/dL RDW 14.6 H (11.5-14.0) % Plt Count 231 (150-450) x10^3/uL MPV 11.2 H (7.5-11.0) fL Gran % 84.5 H (36.0-66.0) % Immature Gran % (Auto) 0.9 H (0.00-0.4) % Nucleat RBC Rel Count 0.0 (0.00-0.1) % Eos # (Auto) 0.27 (0-0.5) x10^3/uL Immature Gran # (Auto) 0.13 H (0.00-0.03) x10^3u/L Absolute Lymphs (auto) 1.28 (1.0-4.6) x10^3/uL Absolute Monos (auto) 0.53 (0.0-1.3) x10^3/uL Absolute Nucleated RBC 0.00 (0.00-0.01) x10^3u/L Lymphocytes % 8.4 L (24.0-44.0) % Monocytes % 3.5 (0.0-12.0) % Eosinophils % 1.8 (0.00-5.0) % Basophils % 0.9 (0.0-0.4) % Absolute Granulocytes 12.85 H (1.4-6.9) x10^3/uL Basophils # 0.13 (0-0.4) x10^3/uL Sodium (137-145) mmol/L Potassium (3.5-5.1) mmol/L Chloride (98-107) mmol/L Carbon Dioxide (22-30) mmol/L Anion Gap (5-15) MEQ/L BUN (9-20) mg/dL Creatinine (0.66-1.25) mg/dL Estimated GFR ML/MIN Glucose (74-106) mg/dL POC Glucometer 267 H (74 to 106) mg/dL Hemoglobin A1c (4.5-6.0) % Lactic Acid (0.4-2.0) Calcium (8.4-10.2) mg/dL Total Bilirubin (0.2-1.3) mg/dL AST (17-59) U/L ALT (0-50) U/L Alkaline Phosphatase (38-126) U/L Troponin I < 0.012 (0.000-0.034) ng/mL NT-Pro-B Natriuret Pep (<300) pg/mL Serum Total Protein (6.3-8.2) g/dL Albumin (3.5-5.0) g/dL Urine Color (Yellow) Urine Appearance (Clear) Urine pH (4.6-8.0) Ur Specific [place] (1.005-1.030) Urine Protein (Negative) Urine Glucose (UA) (Negative) mg/dL Urine Ketones (Negative) Urine Blood (Negative) Urine Nitrite (Negative) Urine Bilirubin (Negative) Urine Urobilinogen (0.2) mg/dL Ur Leukocyte Esterase (Negative) U Hyaline Cast (Auto) (0-2) /LPF Urine Microscopic RBC (0-5) /HPF Urine Microscopic WBC (0-5) /HPF Ur Epithelial Cells (None Seen) /HPF Urine Bacteria (None Seen) /HPF Urine Culture Reflexed (NO) Monoscreen (NEGATIVE) Influenza Type A Ag (NEGATIVE) Influenza Type B Ag (NEGATIVE) RSV (PCR) (NEGATIVE) SARS-CoV-2 (PCR) (NEGATIVE) Group A Strep Antibody (NEGATIVE) 02/13/23 02/13/23 Range/Units 05:16 07:21 WBC (4.0-10.5) x10^3/uL RBC (4.1-5.6) x10^6/uL Hgb (12.5-18.0) g/dL Hct (42-50) % MCV (78-100) fL MCH (26-32) pg MCHC (32-36) g/dL RDW (11.5-14.0) % Plt Count (150-450) x10^3/uL MPV (7.5-11.0) fL Gran % (36.0-66.0) % Immature Gran % (Auto) (0.00-0.4) % Nucleat RBC Rel Count (0.00-0.1) % Eos # (Auto) (0-0.5) x10^3/uL Immature Gran # (Auto) (0.00-0.03) x10^3u/L Absolute Lymphs (auto) (1.0-4.6) x10^3/uL Absolute Monos (auto) (0.0-1.3) x10^3/uL Absolute Nucleated RBC (0.00-0.01) x10^3u/L Lymphocytes % (24.0-44.0) % Monocytes % (0.0-12.0) % Eosinophils % (0.00-5.0) % Basophils % (0.0-0.4) % Absolute Granulocytes (1.4-6.9) x10^3/uL Basophils # (0-0.4) x10^3/uL Sodium 138 (137-145) mmol/L Potassium 4.6 (3.5-5.1) mmol/L Chloride 108 H (98-107) mmol/L Carbon Dioxide 23 (22-30) mmol/L Anion Gap 11.7 (5-15) MEQ/L BUN 24 H (9-20) mg/dL Creatinine 2.11 H (0.66-1.25) mg/dL Estimated GFR 32.1 ML/MIN Glucose 126 H (74-106) mg/dL POC Glucometer 171 H (74 to 106) mg/dL Hemoglobin A1c (4.5-6.0) % Lactic Acid (0.4-2.0) Calcium 8.8 (8.4-10.2) mg/dL Total Bilirubin 0.30 (0.2-1.3) mg/dL AST 20 (17-59) U/L ALT 15 (0-50) U/L Alkaline Phosphatase 67 (38-126) U/L Troponin I (0.000-0.034) ng/mL NT-Pro-B Natriuret Pep 1300 (<300) pg/mL Serum Total Protein 6.6 (6.3-8.2) g/dL Albumin 3.3 L (3.5-5.0) g/dL Urine Color (Yellow) Urine Appearance (Clear) Urine pH (4.6-8.0) Ur Specific [place] (1.005-1.030) Urine Protein (Negative) Urine Glucose (UA) (Negative) mg/dL Urine Ketones (Negative) Urine Blood (Negative) Urine Nitrite (Negative) Urine Bilirubin (Negative) Urine Urobilinogen (0.2) mg/dL Ur Leukocyte Esterase (Negative) U Hyaline Cast (Auto) (0-2) /LPF Urine Microscopic RBC (0-5) /HPF Urine Microscopic WBC (0-5) /HPF Ur Epithelial Cells (None Seen) /HPF Urine Bacteria (None Seen) /HPF Urine Culture Reflexed (NO) Monoscreen (NEGATIVE) Influenza Type A Ag (NEGATIVE) Influenza Type B Ag (NEGATIVE) RSV (PCR) (NEGATIVE) SARS-CoV-2 (PCR) (NEGATIVE) Group A Strep Antibody (NEGATIVE) Radiology Exams: Radiology Procedures Category Date Time Status CHEST 1 VIEW (PORTABLE) Stat Exams 02/12/23 10:46 Completed CHEST WITHOUT CONTRAST [CT] Stat Exams 02/12/23 13:22 Completed Multi-Disciplinary Progress Notes: Multi-Disciplinary Progress Notes 02/13/23 07:15 Pharmacy Note by Hermann Perez Recommend decreasing Eliquis to 2.5mg po BID for creat of 2.1 and >80 years old. Initialized on 02/13/23 07:15 - END OF NOTE Assessment/Plan (1) Pneumonia Current Visit: No Status: Acute Qualifiers: Pneumonia type: due to unspecified organism Laterality: bilateral Lung location: unspecified part of lung Qualified Code(s): J18.9 - Pneumonia, unspecified organism Assessment & Plan: 02/12 - Chest XR 02/12/23 IMPRESSION: Subtle haze is noted in the left lower zone, would recommend clinical correlation to rule out pulmonary infection. -CT chest 02/12/23 1. Interval newly seen left lower lobe peripheral posterior dependant inhomogeneous pneumonic consolidation can be secondary to aspiration, clinical correlation recommended. 2. Rest of the findings are stationary since prior study. 3. Clinical correlation and follow up recommended. - Pulm consult- Dr. Baird notified. - appears to be pneumonia - Ceftriaxone and azithromycin - O2 keep oxygen > 92 % - IS Q2 hr - RT eval and treat 02/13 - discussed CT with Pulmonology- Dr. Baird - change IV antibiotics to Zosyn per recommendation of pulmonology - Room air 95% when awake - Oxygen mid 80's when asleep- then requires 2LNC for O2 to stay above 92% - RT eval and treat for home O2 at night Code(s): J18.9 - PNEUMONIA, UNSPECIFIED ORGANISM (2) Shortness of breath Current Visit: No Status: Acute Assessment & Plan: 02/12/23 - On 2 LNC - Baseline room air 02/13 - Off oxygen when awake, requires oxygen when sleeping - Sxs improving Code(s): R06.02 - SHORTNESS OF BREATH (3) Type 2 diabetes mellitus Current Visit: No Status: Chronic Qualifiers: Assessment & Plan: - continue lantus 15 units daily - S/S insulin with meals 02/13/23 - glucose stable -A1C 8.81 02/12/23 - uncontrolled DM (4) Hypertension Current Visit: No Status: Acute Assessment & Plan: - controlled - Continue home meds Code(s): I10 - ESSENTIAL (PRIMARY) HYPERTENSION (5) Acute hyperkalemia Current Visit: Yes Status: Acute Assessment & Plan: 02/12 - K+ 5.6 - restart home lasix 02/13 - resolved Code(s): E87.5 - HYPERKALEMIA (6) Acute on chronic kidney failure Current Visit: Yes Status: Acute Assessment & Plan: - improving, trend labs Code(s): N17.9 - ACUTE KIDNEY FAILURE, UNSPECIFIED; N18.9 - CHRONIC KIDNEY DISEASE, UNSPECIFIED (7) On anticoagulant therapy Current Visit: Yes Status: Acute Assessment & Plan: - Continue home dose of Eliquis 5mg BID Code(s): Z79.01 - GROUP HOME (CURRENT) USE OF ANTICOAGULANTS (8) BPH (benign prostatic hyperplasia) Current Visit: Yes Status: Acute Assessment & Plan: -Continue flomax VTE: eliquis PPI: Protonix Code status: Full Next of Kin: Spouse, Whitney Domínguez [phone] D/C plan: 1-2 days Code(s): N40.0 - BENIGN PROSTATIC HYPERPLASIA WITHOUT LOWER URINRY TRACT SYMP
[2023-02-13] MEDS: FEOSOL 325 MG PO SCH (09:14)
[2023-02-13] MEDS: Flomax 0.4 MG PO SCH (09:14)
[2023-02-13] MEDS: THERAGRAN MULTIVITAMIN PO SCH (09:14)
[2023-02-13] MEDS: NORVASC 5 MG PO SCH (09:15)
[2023-02-13] MEDS: Imdur 30 MG PO SCH (09:15)
[2023-02-13] MEDS: LASIX 20 MG PO SCH (09:15)
[2023-02-13] MEDS: Lopressor 25MG Tab PO SCH ×2 (09:15→21:30)
[2023-02-13] MEDS: ZYLOPRIM 300 MG PO SCH (09:15)
[2023-02-13] MEDS: Protonix 40MG Tablet PO SCH (09:15)
[2023-02-13] MEDS: ELIQUIS 2.5 MG TABLET PO SCH ×2 (09:15→21:30)
[2023-02-13] MEDS: Ritalin 5 MG PO SCH (09:16)
[2023-02-13] MEDS: PIPERACILLIN/TAZOBACTAM 3.375 GM in Sodium Chloride 100ML MINI-BAG PLUS 100 ML IV SCH ×2 (09:16→17:08)
[2023-02-13] MEDS ORDERED: NON-FORMULARY ITEM (Fluticasone/Umeclidin/Vilanter [Trelegy Ellipta 100-62.5-25] 1 EACH Bl PO SCH (10:00)
[2023-02-13] MEDS ORDERED: ROCEPHIN 1 Gm-D5w 50 ml Bag** 1 G/50 ML IVPB IV SCH (10:00)
[2023-02-13] MEDS ORDERED: NON-FORMULARY ITEM (Dapagliflozin Propanediol [Farxiga] 10 MG Tablet) PO SCH (10:00)
[2023-02-13] MEDS: PATIENT OWN MEDICATION IH SCH (11:43)
[2023-02-13] MEDS: Lantus Insulin SQ SCH (21:31)
[2023-02-13] MEDS: LUMIGAN 0.01% 2.5 ML OP SCH (21:37)
[2023-02-14] MEDS: PIPERACILLIN/TAZOBACTAM 3.375 GM in Sodium Chloride 100ML MINI-BAG PLUS 100 ML IV SCH ×2 (02:27→09:25)
[2023-02-14] MEDS: Sodium Chloride 0.9% 1000 ML 1,000 ML IV SCH (04:24)
[2023-02-14 05:48] LABS: Hematocrit 31.2 % (42-50); Mean Cell Volume 86.4 fL (78-100); Mean Corpuscular Hemoglobin 27.7 pg (26-32); Mean Corpuscular Hgb Concent. 32.1 g/dL (32-36); Mean Platelet Volume 11.4 fL (7.5-11.0); Platelet Count 245 x10^3/uL (150-450); Red Blood Count 3.61 x10^6/uL (4.1-5.6); Red Cell Distribution Width 14.6 % (11.5-14.0); White Blood Count 11.6 x10^3/uL (4.0-10.5)
[2023-02-14 06:30] VITALS: RESP 18
[2023-02-14] MEDS: Carafate 1 GM PO SCH ×2 (07:12→11:36)
[2023-02-14] MEDS: DUONEB 0.5-3 MG/3 ml Neb IH SCH ×2 (07:37→10:41)
[2023-02-14] MEDS: PATIENT OWN MEDICATION IH SCH (07:40)
--- NOTE | 2023-02-14 07:48 | PCM.NOTE ---
Date and Time: 02/14/23 0736 Subjective Assessment: is a 83 year old male patient Patient has a history of HTN, anemia,DM,GERD, CAD (cardiac stents and CABG), [place], COPD/asthma, depression,on Eliquis daily presented to ER 02/12/23 with a 2-day history of cough, mild shortness of air and increasing fatigue, admitted for pneumonia. In ER workup included lactic acid level, CBC, CMP, troponin level, twelve-lead EKG, chest x- ray, COVID/RSV/influenza A, B swabs, group A strep swab, monotest and urinalysis. Respiratory panel as well as the mono screen were negative. Findings of the CXR showed a haziness/early infiltrate left lower lobe suggesting pneumonia. CT of the chest showed LLL consolidation suggesting aspiration. Patient initially placed on rocephin/ azithromycin but with the CT noting possible aspiration, abx changed to Zosyn, pulm consulted. During hospitalization patient was also noted with hyperkalemia, which has since resolved and acute on chronic renal failure with creat levels nearing his baseline of around 1.6-1.9. OBJECTIVE DATA Vital Signs: Vital Signs - 24 hr Temp Pulse Resp BP Pulse Ox 02/14/23 06:29 98.6 F 85 18 145/67 96 02/14/23 03:59 80 16 98 02/13/23 23:57 97.7 F 84 16 125/70 99 02/13/23 20:00 97.3 F 101 H 16 152/71 92 L 02/13/23 18:35 101 H 20 96 02/13/23 15:47 97.7 F 95 H 16 138/61 94 L 02/13/23 14:52 76 16 94 L 02/13/23 11:21 97.3 F 80 18 134/64 93 L 02/13/23 10:37 78 18 90 L 02/13/23 07:40 71 16 95 Pain Assessment - Last Documented Pain Intensity 0 Intake and Output: Intake & Output 02/11/23 02/12/23 02/13/23 02/14/23 11:59 11:59 11:59 11:59 Intake Total 1093 2585 Balance 1093 2585 Weight 91.172 kg 89.5 kg 87 kg Lab Results: Lab Results-Last 24 Hours 02/13/23 02/13/2323 Range/Units 11:21 15:53 21:24 WBC (4.0-10.5) x10^3/uL RBC (4.1-5.6) x10^6/uL Hgb (12.5-18.0) g/dL Hct (42-50) % MCV (78-100) fL MCH (26-32) pg MCHC (32-36) g/dL RDW (11.5-14.0) % Plt Count (150-450) x10^3/uL MPV (7.5-11.0) fL POC Glucometer 194 H 364 H 284 H (74 to 106) mg/dL 02/14/23 02/14/23 Range/Units 05:26 06:24 WBC 11.6 H (4.0-10.5) x10^3/uL RBC 3.61 L (4.1-5.6) x10^6/uL Hgb 10.0 L (12.5-18.0) g/dL Hct 31.2 L (42-50) % MCV 86.4 (78-100) fL MCH 27.7 (26-32) pg MCHC 32.1 (32-36) g/dL RDW 14.6 H (11.5-14.0) % Plt Count 245 (150-450) x10^3/uL MPV 11.4 H (7.5-11.0) fL POC Glucometer 138 H (74 to 106) mg/dL Radiology Exams: Radiology Procedures Category Date Time Status CHEST 1 VIEW (PORTABLE) Stat Exams 02/12/23 10:46 Completed CHEST WITHOUT CONTRAST [CT] Stat Exams 02/12/23 13:22 Completed Multi-Disciplinary Progress Notes: Multi-Disciplinary Progress Notes 02/14/23 06:25 Respiratory Note by Marina Pretty Pt already has cpap for home use. Pt has cpap at bedside. Sats 98% on cpap last night. Initialized on 02/14/23 06:25 - END OF NOTE Assessment/Plan (1) Acute hyperkalemia Current Visit: Yes Status: Acute Code(s): E87.5 - HYPERKALEMIA (2) Acute on chronic kidney failure Current Visit: Yes Status: Acute Code(s): N17.9 - ACUTE KIDNEY FAILURE, UNSPECIFIED; N18.9 - CHRONIC KIDNEY DISEASE, UNSPECIFIED (3) BPH (benign prostatic hyperplasia) Current Visit: Yes Status: Acute Code(s): N40.0 - BENIGN PROSTATIC HYPERPLASIA WITHOUT LOWER URINRY TRACT SYMP (4) On anticoagulant therapy Current Visit: Yes Status: Acute Code(s): Z79.01 - MCC (CURRENT) USE OF ANTICOAGULANTS (5) Chronic anemia Current Visit: No Status: Acute Code(s): D64.9 - ANEMIA, UNSPECIFIED (6) Hypoxia Current Visit: No Status: Acute Code(s): R09.02 - HYPOXEMIA (7) Pneumonia Current Visit: No Status: Acute Qualifiers: Pneumonia type: due to unspecified organism Laterality: bilateral Lung location: unspecified part of lung Qualified Code(s): J18.9 - Pneumonia, unspecified organism Code(s): J18.9 - PNEUMONIA, UNSPECIFIED ORGANISM (8) COPD (chronic obstructive pulmonary disease) Current Visit: No Status: Chronic (9) Type 2 diabetes mellitus Current Visit: No Status: Chronic Qualifiers:
[2023-02-14 08:19] LABS: ALBUMIN 3.3 g/dL (3.5-5.0); ANION GAP 11.5 MEQ/L (5-15); BILIRUBIN,TOTAL 0.4 mg/dL (0.2-1.3); Creatinine 1 1.9 mg/dL (0.66-1.25); EST GLOMERULAR FILTRATION RATE 36.3 ML/MIN; Potassium 4.2 mmol/L (3.5-5.1); Total Protein 6.5 g/dL (6.3-8.2)
[2023-02-14] MEDS: Ritalin 5 MG PO SCH (09:23)
[2023-02-14] MEDS: NORVASC 5 MG PO SCH (09:24)
[2023-02-14] MEDS: THERAGRAN MULTIVITAMIN PO SCH (09:24)
[2023-02-14] MEDS: Flomax 0.4 MG PO SCH (09:24)
[2023-02-14] MEDS: Imdur 30 MG PO SCH (09:24)
[2023-02-14] MEDS: Lopressor 25MG Tab PO SCH (09:24)
[2023-02-14] MEDS: ZYLOPRIM 300 MG PO SCH (09:24)
[2023-02-14] MEDS: LASIX 20 MG PO SCH (09:24)
[2023-02-14] MEDS: FEOSOL 325 MG PO SCH (09:24)
[2023-02-14] MEDS: Protonix 40MG Tablet PO SCH (09:24)
[2023-02-14] MEDS: ELIQUIS 2.5 MG TABLET PO SCH (09:25)
[2023-02-14] MEDS ORDERED: LYRICA 150MG PO SCH (10:00)
--- NOTE | 2023-02-14 10:01 | PCM.DS ---
Discharge Summary Date of Admission: 02/12/23 14:46 Date of Discharge: 02/14/23 Admitting Physician: MELYSSA DOTSON MD Consults: Consults on Case 02/12/23 15:27 Consult Pulmonology ROUTINE Primary Care Provider: [facility] Allergies Allergies Iodinated Contrast Media [Iodinated Contrast Media - IV Dye] Allergy (Intermediate, Verified 02/12/23 10:30) unknown- hives morphine Allergy (Intermediate, Verified 02/12/23 10:30) confusion and combative hydromorphone HCl [From Dilaudid] Adverse Reaction (Intermediate, Verified 02/12/23 10:30) confusion and combative oxycodone HCl [From OxyContin] Adverse Reaction (Intermediate, Verified 02/12/23 10:30) confusion/ combative Hospital Summary - Hospital Course Hospital Course: is a 83 year old male patient Patient has a history of HTN, anemia,DM,GERD, CAD (cardiac stents and CABG), NH, COPD/asthma, depression,on Eliquis daily presented to ER 02/12/23 with a 2-day history of cough, mild shortness of air and increasing fatigue, admitted for pneumonia. In ER workup included lactic acid level, CBC, CMP, troponin level, twelve-lead EKG, chest x- ray, COVID/RSV/influenza A, B swabs, group A strep swab, monotest and urinalysis. Respiratory panel as well as the mono screen were negative. Findings of the CXR showed a haziness/early infiltrate left lower lobe suggesting pneumonia. CT of the chest showed LLL consolidation suggesting aspiration. Patient initially placed on rocephin/ azithromycin but with the CT noting possible aspiration, abx changed to Zosyn, pulm consulted. During hospitalization patient was also noted with hyperkalemia, which has since resolved and acute on chronic renal failure with creat levels nearing his bas davida of around 1.6-1.9. Patient to discharge on Augmentin 875mg po BID x 5 days. Advised patient to f/u with Pulm as OP. -New Diagnoses: Pneumonia -New Medications: Augmentin -Medications Discontinued: none, continue home meds -Follow up: PCP/ Pulm -Results pending: none -Outpatient testing to order: BMP in 3 days prior to PCP appt -Latest Assessment and Plan: (1) Pneumonia Current Visit: No Status: Acute Qualifiers: Pneumonia type: due to unspecified organism Laterality: bilateral Lung location: unspecified part of lung Qualified Code(s): J18.9 - Pneumonia, unspecified organism Assessment & Plan: 02/12 - Chest XR 02/12/23 IMPRESSION: Subtle haze is noted in the left lower zone, would recommend clinical correlation to rule out pulmonary infection. -CT chest 02/12/23 1. Interval newly seen left lower lobe peripheral posterior dependant inhomogeneous pneumonic consolidation can be secondary to aspiration, clinical correlation recommended. 2. Rest of the findings are stationary since prior study. 3. Clinical correlation and follow up recommended. - Pulm consult- Dr. Matamoros notified. - appears to be pneumonia - Ceftriaxone and azithromycin - O2 keep oxygen > 92 % - IS Q2 hr - RT eval and treat 02/13 - discussed CT with Pulmonology- Dr. Matamoros - change IV antibiotics to Zosyn per recommendation of pulmonology - Room air 95% when awake - Oxygen mid 80's when asleep- then requires 2LNC for O2 to stay above 92% - RT eval and treat for home O2 at night 02/14: -Patient has home CPAP which was brought in, no need for home oxygen, doing good on RA during day at 93% spo2 -D/c on Augmentin 875mg bid x 5 days Code(s): J18.9 - PNEUMONIA, UNSPECIFIED ORGANISM (2) Shortness of breath Current Visit: No Status: Acute Assessment & Plan: 02/12/23 - On 2 LNC - Baseline room air 02/13 - Off oxygen when awake, requires oxygen when sleeping - Sxs improving 02/14: -see above has home CPAP Code(s): R06.02 - SHORTNESS OF BREATH (3) Type 2 diabetes mellitus Current Visit: No Status: Chronic Qualifiers: Assessment & Plan: - continue lantus 15 units daily - S/S insulin with meals 02/13/23 - glucose stable -A1C 8.81 02/12/23 - uncontrolled DM (4) Hypertension Current Visit: No Status: Acute Assessment & Plan: - controlled - Continue home meds Code(s): I10 - ESSENTIAL (PRIMARY) HYPERTENSION (5) Acute hyperkalemia Current Visit: Yes Status: Acute Assessment & Plan: 02/12 - K+ 5.6 - restart home lasix 02/13 - resolved Code(s): E87.5 - HYPERKALEMIA (6) Acute on chronic kidney failure Current Visit: Yes Status: Acute Assessment & Plan: - improving, trend labs 02/14: -At baseline creat Code(s): N17.9 - ACUTE KIDNEY FAILURE, UNSPECIFIED; N18.9 - CHRONIC KIDNEY DISEASE, UNSPECIFIED (7) On anticoagulant therapy Current Visit: Yes Status: Acute Assessment & Plan: - Continue home dose of Eliquis 5mg BID Code(s): Z79.01 - JAIL (CURRENT) USE OF ANTICOAGULANTS (8) BPH (benign prostatic hyperplasia) Current Visit: Yes Status: Acute Assessment & Plan: -Continue flomax I spent 45 minutes [id number] with the patient on the day of discharge performing discharge exam, discussing hospital stay and discharge instructions with patient & caregivers, preparation of discharge records, prescriptions & referral forms and addressing any questions/concerns the patient had as documented above. - Vitals & Intake/Output Vital Signs: Vital Signs Temperature 98.6 F 02/14/23 06:29 Pulse Rate 72 02/14/23 07:40 Respiratory Rate 18 02/14/23 07:40 Blood Pressure 145/67 02/14/23 06:29 O2 Sat by Pulse Oximetry 93 L 02/14/23 07:40 Intake & Output: Intake & Output 02/11/23 02/12/23 02/13/23 02/14/23 11:59 11:59 11:59 11:59 Intake Total 1093 2825 Balance 1093 2825 Weight 91.172 kg 89.5 kg 87 kg - Lab Result Diagrams: 02/14/23 05:26 02/14/23 05:26 Lab Results-Last 24 Hrs: Lab Results-Last 24 Hours 02/13/23 02/13/23 02/13/23 Range/Units 11:21 15:53 21:24 WBC (4.0-10.5) x10^3/uL RBC (4.1-5.6) x10^6/uL Hgb (12.5-18.0) g/dL Hct (42-50) % MCV (78-100) fL MCH (26-32) pg MCHC (32-36) g/dL RDW (11.5-14.0) % Plt Count (150-450) x10^3/uL MPV (7.5-11.0) fL Sodium (137-145) mmol/L Potassium (3.5-5.1) mmol/L Chloride (98-107) mmol/L Carbon Dioxide (22-30) mmol/L Anion Gap (5-15) MEQ/L BUN (9-20) mg/dL Creatinine (0.66-1.25) mg/dL Estimated GFR ML/MIN Glucose (74-106) mg/dL POC Glucometer 194 H 364 H 284 H (74 to 106) mg/dL Calcium (8.4-10.2) mg/dL Total Bilirubin (0.2-1.3) mg/dL AST (17-59) U/L ALT (0-50) U/L Alkaline Phosphatase (38-126) U/L Serum Total Protein (6.3-8.2) g/dL Albumin (3.5-5.0) g/dL 02/14/23 02/14/23 02/14/23 Range/Units 05:26 05:26 06:24 WBC 11.6 H (4.0-10.5) x10^3/uL RBC 3.61 L (4.1-5.6) x10^6/uL Hgb 10.0 L (12.5-18.0) g/dL Hct 31.2 L (42-50) % MCV 86.4 (78-100) fL MCH 27.7 (26-32) pg MCHC 32.1 (32-36) g/dL RDW 14.6 H (11.5-14.0) % Plt Count 245 (150-450) x10^3/uL MPV 11.4 H (7.5-11.0) fL Sodium 136 L (137-145) mmol/L Potassium 4.2 (3.5-5.1) mmol/L Chloride 106 (98-107) mmol/L Carbon Dioxide 23 (22-30) mmol/L Anion Gap 11.5 (5-15) MEQ/L BUN 18 (9-20) mg/dL Creatinine 1.90 H (0.66-1.25) mg/dL Estimated GFR 36.3 ML/MIN Glucose 147 H (74-106) mg/dL POC Glucometer 138 H (74 to 106) mg/dL Calcium 9.0 (8.4-10.2) mg/dL Total Bilirubin 0.40 (0.2-1.3) mg/dL AST 20 (17-59) U/L ALT 14 (0-50) U/L Alkaline Phosphatase 66 (38-126) U/L Serum Total Protein 6.5 (6.3-8.2) g/dL Albumin 3.3 L (3.5-5.0) g/dL Micro Results-Entire Visit: Microbiology 02/12/23 11:18 Blood Culture - Final Blood 02/12/23 11:10 Blood Culture - Preliminary Blood Accuchecks Date 02/14/23 Date 02/13/23 Date 02/13/23 Date 02/13/23 Time 06:29 Time 21:00 Time 15:56 Time 11:27 - Radiology Exams Ordered Rad Exams-Entire Visit: Radiology Procedures Category Date Time Status CHEST 1 VIEW (PORTABLE) Stat Exams 02/12/23 10:46 Completed CHEST WITHOUT CONTRAST [CT] Stat Exams 02/12/23 13:22 Completed - Procedures and Test Procedures and Tests throughout Hospitalization: Therapy Orders & Screens 02/12/23 14:55 EKG REPEAT IN AM Comment: Oxygen Nasal Cannula 2 lpm Comment: Respiratory Therapy Consult ONCE Comment: Reason For Exam: 02/12/23 15:18 Respiratory Therapy Assessment DAILY Comment: Diagnosis: cough, shortness of breath 02/12/23 15:21 Incentive Spirometry TID Comment: Q2 hr Diagnosis: cough, shortness of breath 02/13/23 10:04 Qualify for Home Oxygen ROUTINE Comment: O2 drops when sleeping, may need home O2 Diagnosis: cough, shortness of breath 02/13/23 11:41 RT Miscellaneous Order ROUTINE Comment: Physician Instructions: pt may use home Cpap Reason For Exam: Diagnosis: cough, shortness of breath 02/13/23 18:57 BiPap/CPAP ROUTINE Comment: Diagnosis: cough, shortness of breath 02/14/23 07:00 Respiratory MDI DAILY Comment: Diagnosis: cough, shortness of breath Discharge Exam General Appearance: no apparent distress Neurologic Exam: alert, oriented x 3, cooperative Eye Exam: PERRL Ears, Nose, Throat Exam: normal ENT inspection Neck Exam: normal inspection Respiratory Exam: diminished breath sounds (LLL) Cardiovascular Exam: regular rate/rhythm, normal heart sounds Gastrointestinal/Abdomen Exam: soft, normal bowel sounds Rectal Exam: deferred Back Exam: normal inspection Extremity Exam: normal inspection Final Diagnosis/Problem List - Final Discharge Diagnosis/Problem (1) Pneumonia Current Visit: No Status: Acute Code(s): J18.9 - PNEUMONIA, UNSPECIFIED ORGANISM (2) Acute hyperkalemia Current Visit: Yes Status: Resolved Code(s): E87.5 - HYPERKALEMIA (3) Acute on chronic kidney failure Current Visit: Yes Status: Chronic Code(s): N17.9 - ACUTE KIDNEY FAILURE, UNSPECIFIED; N18.9 - CHRONIC KIDNEY DISEASE, UNSPECIFIED (4) BPH (benign prostatic hyperplasia) Current Visit: Yes Status: Chronic Code(s): N40.0 - BENIGN PROSTATIC HYPERPLASIA WITHOUT LOWER URINRY TRACT SYMP (5) On anticoagulant therapy Current Visit: Yes Status: Chronic Code(s): Z79.01 - [employer] TRA[employer]ER (CURRENT) USE OF ANTICOAGULANTS (6) Chronic anemia Current Visit: No Status: Chronic Code(s): D64.9 - ANEMIA, UNSPECIFIED (7) Hypoxia Current Visit: No Status: Resolved Code(s): R09.02 - HYPOXEMIA (8) COPD (chronic obstructive pulmonary disease) Current Visit: No Status: Chronic (9) Type 2 diabetes mellitus Current Visit: No Status: Chronic - Discharge Disposition: Home, Self-Care Condition: Stable Prescriptions: New Amox Tr/Potass Clav. 875 mg [Augmentin 875-125 Tablet] 875 mg PO BID 5 Days #10 tablet Continue Multivitamin [Multivitamins] 1 tab PO DAILY Metoprolol Tartrate 25 mg [Lopressor 25MG Tab] 25 mg PO BID Hydrocodone/Acetaminophen [Hydrocodone-Acetamin 10-325 mg] 1 tab PO Q6HPRN PRN PRN Reason: Pain Amlodipine Besylate 5 mg [Norvasc 5 mg] 10 mg PO DAILY Isosorbide Mononitrate 30 mg [Imdur 30 MG] 30 mg PO DAILY Apixaban [Eliquis 5 mg Tablet] 5 mg PO BID Methylphenidate 5 mg [Ritalin 5 MG] 20 mg PO QAM Tamsulosin HCl 0.4 mg [Flomax 0.4 MG] 0.4 mg PO DAILY Omeprazole 40 mg PO DAILY Pregabalin 50 mg [Lyrica 50MG] 150 mg PO BID Metformin HCl 500 mg [Glucophage 500 MG] 1,000 mg PO BID Bimatoprost 0.01% [Lumigan 0.01% 2.5 ml] 1 drop OP HS Albuterol 2.5 mg/3 ml Neb [Proventil 2.5 mg/3 ml Neb] 1 neb IH DAILY PRN PRN PRN Reason: Shortness Of Breath Sucralfate 1 gm [Carafate 1 GM] 1 gm PO QID Ferrous Sulfate 325 mg [Feosol 325 mg] 325 mg PO DAILY Dapagliflozin Propanediol [Farxiga] 10 mg PO DAILY Insulin Glargine/Lixisenatide [Soliqua 100 Unit-33 Mcg/ml Pen] 15 units SQ DAILY Furosemide 20 mg [Lasix 20 mg] 20 mg PO DAILY Nitroglycerin 0.4 mg Tablet [Nitrostat 0.4 MG Tablet] 0.4 mg PO UD Albuterol/Ipratropium 3ml Neb* [DUONEB 0.5-3 MG/3 ml Neb] 3 ml IH QID #60 ml Allopurinol 300 mg [Zyloprim 300 mg] 1 tab PO DAILY Fluticasone/Umeclidin/Vilanter [Trelegy Ellipta 100-62.5-25] 1 puff PO DAILY Methylphenidate 5 mg [Ritalin 5 MG] 10 mg PO LUNCH Discontinued Cephalexin Mh 500 mg [Keflex 500 mg] 500 mg PO TID #21 cap Instructions: Pneumonia, Adult (DC) Follow up with: ARSEN MATAMOROS [ACTIVE STAFF] - Call for Appointment (CALL TUESDAY FOR FOLLOW- UP APPOINTMENT.) BALDO,AMY [Primary Care Provider] - Call for Appointment (CALL TUESDAY FOR A ONE WEEK FOLLOW-UP APPOINTMENT. ) Forms: Discharge Instructions
[2023-02-14 11:30] VITALS: BP 136/63; PULSE 61; TEMP 97.8; O2SAT 94
[2023-02-14] MEDS: HUMALOG SQ PRN (11:36)
[2023-02-14] MEDS ORDERED: Ritalin 5 MG PO SCH (12:00)
[2023-02-15] MEDS ORDERED: Ritalin 5 MG PO SCH (08:00)
== END 2023-02-14 11:50 | disposition home or self-care (01) | DRG 195 ==
LOC: ED 10:03 → MED SURG 14:46
PROVIDERS: ADMIT Internal Medicine; ATTEND Internal Medicine
DX: J18.9 Pneumonia, unspecified organism (principal); D64.9 Anemia, unspecified; E11.22 Type 2 diabetes mellitus with diabetic chronic kidney disease; I12.9 Hypertensive chronic kidney disease with stage 1 through stage 4 chronic kidney disease, or unspecified chronic kidney disease; N18.9 Chronic kidney disease, unspecified; E87.5 Hyperkalemia; K21.9 Gastro-esophageal reflux disease without esophagitis; I25.10 Atherosclerotic heart disease of native coronary artery without angina pectoris; J44.9 Chronic obstructive pulmonary disease, unspecified; R06.02 Shortness of breath; R09.02 Hypoxemia; N40.0 Benign prostatic hyperplasia without lower urinary tract symptoms; Z95.1 Presence of aortocoronary bypass graft; Z79.01 Long term (current) use of anticoagulants; Z79.899 Other long term (current) drug therapy; Z20.828 Contact with and (suspected) exposure to other viral communicable diseases
CPT/HCPCS: 0241U; 36000; 36415; 71045; 71250; 80053; 81001; 82947; 83036; 83605; 83880; 84484; 85025; 85027; 86308; 87040; 87651; 93005; 93041; 94640; 94760; 94762; 99285; J0456; J0696; J1817; Q3014; A9270-GY

== ENCOUNTER 2023-04-11 18:20 | Inpatient (IN) | payer MEDICARE ==
[2023-04-11 18:29] LABS: A-aADO2 212; ABG HEMOGLOBIN 11.4; ABG POTASSIUM 5.4 (3.5-5.1); ARTERIAL BLD GAS O2 SATURATION 84.3 % (95-100); ARTERIAL BLOOD GAS BASE EXCESS -0.4 (-2.0-2.0); ARTERIAL BLOOD GAS FIO2 44 %; ARTERIAL BLOOD GAS PCO2 42 mmHg (35-45); ARTERIAL BLOOD GAS pH 7.38 (7.35-7.45); CARBOXYHEMOGLOBIN 1.1 % THgb (0.0-6.9); HCO3- 24.8 (22-28); HGB O2 SAT 83.4 g/dF (94-100); Lactic Acid 0.8 (0.4-2.0); paO2 pAO1 0.19
[2023-04-11 18:30] LABS: ABG SITE RIGHT BRACHIAL; ARTERIAL BLOOD GAS PO2 49 mmHg (75-100)
--- NOTE | 2023-04-11 18:32 | ERPHSYRPT ---
- History of Present Illness Source: EMS Exam Limitations: clinical condition Timing/Duration: today (Paramedics) Activities at Onset: none Severity of Dyspnea-Max: moderate Severity of Dyspnea-Current: moderate Possible Cause: no prior episodes Modifying Factors: Improves With: other (Post bronchoscopy from earlier this morning) Associated Symptoms: denies symptoms Hx Tetanus, Diphtheria Vaccination/Date Given: No Hx Influenza Vaccination/Date Given: No Hx Pneumococcal Vaccination/Date Given: No <YAZMIN DANIELS - Last Filed: 04/11/23 18:44> <TRAVIS PARRY - Last Filed: 04/11/23 21:14> - History of Present Illness Time Seen by Provider: 04/11/23 18:31 Physician History: This is an 83-year-old white male patient of Dr. Lane who was brought to the emergency department by the paramedics. Patient underwent a bronchoscopy at 8 AM this morning at [facility]. Postoperatively, at home, he had altered mental status as well as apparent shortness of breath. Family called 911 because of the symptoms. Paramedics arrived to the patient's home and his room air oxygenation level was in the mid 80s percent. Patient was lethargic and minimally responsive. Patient received Lasix, DuoNeb treatment and Solu-Medrol intravenously. This was given by the paramedics in route to our facility. Patient arrived to our facility with 88 to 89% oxygen saturation level on 100% nonrebreather. He was tachycardic, afebrile lethargic and minimally responsive and had a respiratory rate of 24 respirations per minute. Patient has multiple medical issues including atrial fibrillation, CHF and is on Eliquis. He also has insulin-dependent diabetes, gastroesophageal reflux disease, hypertension, COPD, coronary artery disease (cardiac stent and CABG). His blood sugar on arrival to the emergency department is 157. (YAZMIN DANIELS) Allergies/Adverse Reactions: Iodinated Contrast Media [Iodinated Contrast Media - IV Dye] Allergy (Intermediate, Verified 04/11/23 18:41) unknown- hives morphine Allergy (Intermediate, Verified 04/11/23 18:41) confusion and combative hydromorphone HCl [From Dilaudid] Adverse Reaction (Intermediate, Verified 04/11/23 18:41) confusion and combative oxycodone HCl [From OxyContin] Adverse Reaction (Intermediate, Verified 04/11/23 18:41) confusion/ combative Home Medications: Amlodipine Besylate 5 mg [Norvasc 5 mg] 10 mg PO DAILY 05/16/22 [History] Apixaban [Eliquis 5 mg Tablet] 5 mg PO BID 05/16/22 [History] Hydrocodone/Acetaminophen [Hydrocodone-Acetamin 10-325 mg] 1 tab PO Q6HPRN PRN 05/16/22 [History] Methylphenidate 5 mg [Ritalin 5 MG] 20 mg PO QAM 05/16/22 [History] Metoprolol Tartrate 25 mg [Lopressor 25MG Tab] 25 mg PO BID 05/16/22 [History] Multivitamin [Multivitamins] 1 tab PO DAILY 05/16/22 [History] Omeprazole 40 mg PO DAILY 05/16/22 [History] Pregabalin 50 mg [Lyrica 50MG] 150 mg PO BID 05/16/22 [History] Tamsulosin HCl 0.4 mg [Flomax 0.4 MG] 0.4 mg PO DAILY 05/16/22 [History] Albuterol 2.5 mg/3 ml Neb [Proventil 2.5 mg/3 ml Neb] 1 neb IH DAILY PRN PRN 07/08/22 [History] Dapagliflozin Propanediol [Farxiga] 10 mg PO DAILY 01/08/23 [History] Ferrous Sulfate 325 mg [Feosol 325 mg] 325 mg PO DAILY 01/08/23 [History] Furosemide 20 mg [Lasix 20 mg] 20 mg PO DAILY 01/08/23 [History] Nitroglycerin 0.4 mg Tablet [Nitrostat 0.4 MG Tablet] 0.4 mg SL UD 01/08/23 [History] Sucralfate 1 gm [Carafate 1 GM] 1 gm PO QID 01/08/23 [History] Allopurinol 300 mg [Zyloprim 300 mg] 1 tab PO DAILY 02/12/23 [History] Methylphenidate 5 mg [Ritalin 5 MG] 10 mg PO LUNCH 02/12/23 [History] Isosorbide Mononitrate 30 mg [Imdur 30 MG] 30 mg PO DAILY 03/07/23 [History] Albuterol/Ipratropium 3ml Neb* [DUONEB 0.5-3 MG/3 ml Neb] 3 ml IH QID PRN 04/11/23 [History] Bimatoprost 0.01% [Lumigan 0.01% 2.5 ml] 2.5 ml OP HS 04/11/23 [History] Insulin Glargine/Lixisenatide [Soliqua 100 Unit-33 Mcg/ml Pen] 20 units SQ DAILY 04/11/23 [History] Insulin Regular, Human [Novolin R] 100 unit SQ UD 04/11/23 [History] Metformin HCl 500 mg [Glucophage 500 MG] 1,000 mg PO BIDWM 04/11/23 [History] Travel Risk - International Travel Have you traveled outside of the country in past 3 weeks: No - Coronavirus Screening Are you exhibiting any of the following symptoms?: Yes Symptoms: Shortness of Breath Close contact with a COVID-19 positive Pt in past 14-21 Days: No - Vaccine Status Have you recieved a Covid-19 vaccination: No <YAZMIN ADNIELS - Last Filed: 04/11/23 18:44> - Review of Systems Constitutional: No Symptoms Eyes: No Symptoms Ears, Nose, & Throat: No Symptoms Respiratory: Dyspnea Cardiac: No Symptoms Abdominal/Gastrointestinal: Other (Significant abdominal distention) Genitourinary Symptoms: No Symptoms Musculoskeletal: No Symptoms Skin: No Symptoms Neurological: Lethargy Psychological: No Symptoms Endocrine: No Symptoms Hematologic/Lymphatic: No Symptoms Immunological/Allergic: No Symptoms All Other Systems: Reviewed and Negative <YAZMIN DANIELS - Last Filed: 04/11/23 18:44> - Past Medical History Pertinent Past Medical History: Yes Neurological History: No Pertinent History ENT History: Cataracts, Glaucoma Cardiac History: Hypertension, Myocardial Infarction ([place]), Other Respiratory History: Asthma, COPD, Other Endocrine Medical History: Diabetes Type II Musculoskeletal History: Fractures GI Medical History: GERD, Gallbladder Disease History: Other Psycho-Social History: Depression Male Reproductive Disorders: Prostate Problems Other Medical History: COVID-19, L Wrist Fracture (1982), Open Heart Surgery (1993), LE fracture (unable to recall which side, 1959's), Low Back Pain, LB surgery (1994 with rods placed) - Past Surgical History Past Surgical History: Yes Neuro Surgical History: No Pertinent History Cardiac: CABG, Cardiac Catheterization, Cardiac Stent Respiratory: Chest Surgery Gastrointestinal: Appendectomy, Cholecystectomy Genitourinary: No Pertinent History Musculoskeletal: Orthopedic Surgery Male Surgical History: No Pertinent History Other Surgical History: back surgery, fem pop, steriod injection in various jayne ints, carpal tunnel surgery - Social History Smoking Status: Never smoker How long have you smoked: 1975 Exposure to second hand smoke: No Drug Use: none Patient Lives Alone: No <YAZMIN DANIELS - Last Filed: 04/11/23 18:44> - Physical Exam General Appearance: lethargy, other (Patient unresponsive) Eye Exam: PERRL/EOMI, eyes nml inspection Neck Exam: normal inspection, non-tender, supple, full range of motion Respiratory Exam: respiratory distress, rhonchi (Bilateral diffuse), No chest tenderness Cardiovascular/Chest Exam: tachycardia Abdominal/Gastrointestinal Exam: distention (With decreased breath sounds) Rectal Exam: not done Extremity Exam: non-tender, normal range of motion, normal inspection, normal c apillary refill, no calf tenderness, no pedal edema, pelvis stable Neurologic Exam: other (Patient lethargic and unable to perform an accurate neurologic exam) Skin Exam: normal color, warm, dry Lymphatic Exam: No adenopathy SpO2 Interpretation: hypoxic O2 Delivery: Room Air <YAZMIN DANIELS - Last Filed: 04/11/23 18:44> - Nursing Vital Signs Nursing Vital Signs: Initial Vital Signs Temperature 99.6 F 04/11/23 18:25 Pulse Rate 112 H 04/11/23 18:25 Respiratory Rate 24 04/11/23 18:25 Blood Pressure 129/64 04/11/23 18:25 O2 Sat by Pulse Oximetry 86 L 04/11/23 18:25 Pain Scale Pain Intensity 0 - Course Nursing assessment & vital signs reviewed: Yes EKG Interpreted by Me: RATE (106), LAFB, NORMAL INTERVALS, Right Bundle Branch Block, Other (No acute ischemic changes on today's twelve-lead EKG.) <YAZMIN DANIELS - Last Filed: 04/11/23 18:44> - CT Exams Abdomen/Pelvis CT Interpretation: Discussed w/radiologist (Diffuse respiration artifact. New NGT tip in fluid distended stomach. New mild diffuse fluid distended small bowel loops w/ fluid leveling, ileus vs enteritis.) Chest CT Interpretation: Discussed w/radiologist (Respiration artifact. New diffuse LLL consolidating pneumonia & posterior RLL subsegmental ATX.) Head CT Interpretation: Discussed w/radiologist (Continues nonacute senile brain compared to .) <TRAVIS PARRY - Last Filed: 04/11/23 21:14> Ordered Tests: Active Orders 24 hr Category Date Time Status Bedrest ROUTINE Activity 04/11/23 21:02 Active Admit as Inpatient ROUTINE Care 04/11/23 20:58 Active Call Admit Doctor for Orders ON ADMISSION Care 04/11/23 20:58 Active Corrugated Fastener Driver ROUTINE Care 04/11/23 21:03 Active Catheter-[place] STAT Care 04/11/23 18:34 Active Code Status Order ROUTINE Care 04/11/23 20:58 Active EKG-ER Only STAT Care 04/11/23 18:34 Active Gastric Tube Insertion STAT Care 04/11/23 18:49 Active IV Insertion STAT Care 04/11/23 18:34 Active Neuro Checks Q4H Care 04/11/23 20:58 Active POCT Glucose Check Q4H Care 04/11/23 20:58 Active NPO Diet 04/11/23 21:02 Active ABDOMEN AND PELVIS W/0 CONTRAS [CT] Stat Exams 04/11/23 18:36 Taken CHEST WITHOUT CONTRAST [CT] Stat Exams 04/11/23 18:53 Taken HEAD WITHOUT CONTRAST [CT] Stat Exams 04/11/23 18:36 Taken ABG [ARTERIAL BLOOD GASES] Stat Lab 04/11/23 18:23 Completed AMYLASE Stat Lab 04/11/23 18:35 Completed BLOOD CULTURE Stat Lab 04/11/23 18:43 Received CBC W DIFF AM.LAB Lab 04/12/23 04:00 Ordered CBC W DIFF Stat Lab 04/11/23 18:35 Completed CMP AM.LAB Lab 04/12/23 04:00 Ordered CMP Stat Lab 04/11/23 18:35 Completed CULTURE,SPUTUM Stat Lab 04/11/23 20:43 Ordered CULTURE,URINE Stat Lab 04/11/23 18:35 Received LIPASE Stat Lab 04/11/23 18:35 Completed Lactic Acid Stat Lab 04/11/23 18:23 Completed MONO SCREEN Stat Lab 04/11/23 18:35 Completed Manual Differential NC Stat Lab 04/11/23 18:35 Completed NT PRO BNPII Stat Lab 04/11/23 18:35 Completed POCT GLUCOSE Stat Lab 04/11/23 18:38 Completed TROPONIN AM.LAB Lab 04/12/23 04:00 Ordered TROPONIN Q4H Lab 04/11/23 18:35 Completed TROPONIN Q4H Lab 04/11/23 21:00 Ordered TROPONIN Q4H Lab 04/11/23 22:45 Ordered TROPONIN Q4H Lab 04/12/23 02:45 Ordered UA W/RFX UR CULTURE Stat Lab 04/11/23 18:35 Completed EKG REPEAT IN AM RT 04/11/23 20:58 Active Oxygen Venti-Mask 40% RT 04/11/23 20:58 Active Pulse Oximetry CONTINUOUS RT 04/11/23 21:04 Active Respiratory Therapy Consult ONCE RT 04/11/23 20:58 Active Medication Summary Generic Name Dose Route Start Last Admin Trade Name Freq PRN Reason Stop Dose Admin Albuterol Sulfate 2.5 mg 04/12/23 01:00 Albuterol Sulfate 2.5 Mg/3 Ml Neb IH 05/12/23 00:59 Q6HRT RUTH Sodium Chloride 1,000 mls @ 999 mls/hr 04/11/23 20:13 04/11/23 20:19 Sodium Chloride 0.9% 1000 Ml IV 04/11/23 21:13 999 mls/hr .Q1H1M STA Administration Azithromycin 500 mg in 250 mls @ 250 mls/hr 04/11/23 20:43 04/11/23 21:00 Zithromax 500 Mg/ 250 Ml Nacl Premix IV 04/11/23 21:42 250 mls/hr STAT STA 250 mls/hr Administration Azithromycin 500 mg in 250 mls @ 250 mls/hr 04/12/23 10:00 Zithromax 500 Mg/ 250 Ml Nacl Premix IV 05/12/23 09:59 Q24H10 RUTH Ceftriaxone Sodium/Dextrose 1 g in 50 mls @ 100 mls/hr 04/12/23 10:00 Rocephin 1 Gm-D5w 50 Ml Bag IV 04/15/23 09:59 Q24H10 RUTH Discontinued Medications Generic Name Dose Route Start Last Admin Trade Name Maribeth PRN Reason Stop Dose Admin Acetaminophen 650 mg 04/11/23 18:52 04/11/23 19:25 Acetaminophen 650 Mg Supp.Rect LA 04/11/23 18:53 650 mg STAT ONE Administration Acetaminophen Confirm 04/11/23 18:52 Acetaminophen 650 Mg Supp.Rect Administered 04/11/23 18:53 Dose 650 mg .ROUTE .STK-MED ONE Albuterol Sulfate 2.5 mg 04/11/23 20:43 Albuterol Sulfate 2.5 Mg/3 Ml Neb IH 04/11/23 20:44 STAT ONE Albuterol Sulfate Confirm 04/11/23 21:07 Albuterol Sulfate 2.5 Mg/3 Ml Neb Administered 04/11/23 21:08 Dose 2.5 mg IH .STK-MED ONE Sodium Chloride Confirm 04/11/23 20:16 Sodium Chloride 0.9% 1000 Ml Administered 04/11/23 20:17 Dose 1,000 mls @ ud .ROUTE .STK-MED ONE Ceftriaxone Sodium/Dextrose 1 g in 50 mls @ 100 mls/hr 04/11/23 20:43 04/11/23 20:59 Rocephin 1 Gm-D5w 50 Ml Bag IV 04/11/23 21:12 100 mls/hr STAT STA 100 mls/hr Administration Azithromycin Confirm 04/11/23 20:51 Zithromax 500 Mg/ 250 Ml Nacl Premix Administered 04/11/23 20:52 Dose 500 mg in 250 mls @ ud IV .STK-MED ONE Ceftriaxone Sodium/Dextrose Confirm 04/11/23 20:51 Rocephin 1 Gm-D5w 50 Ml Bag Administered 04/11/23 20:52 Dose 1 g in 50 mls @ ud IV .STK-MED ONE Lab/Rad Data: Laboratory Result Diagrams 04/11/23 18:35 04/11/23 18:35 Laboratory Results 04/11/23 04/11/23 04/11/23 Range/Units 18:43 18:43 18:38 WBC (4.0-10.5) x10^3/uL RBC (4.1-5.6) x10^6/uL Hgb (12.5-18.0) g/dL Hct (42-50) % MCV (78-100) fL MCH (26-32) pg MCHC (32-36) g/dL RDW (11.5-14.0) % Plt Count (150-450) x10^3/uL MPV (7.5-11.0) fL Gran % (36.0-66.0) % Immature Gran % (Auto) (0.00-0.4) % Nucleat RBC Rel Count (0.00-0.1) % Eos # (Auto) (0-0.5) x10^3/uL Immature Gran # (Auto) (0.00-0.03) x10^3u/L Absolute Lymphs (auto) (1.0-4.6) x10^3/uL Absolute Monos (auto) (0.0-1.3) x10^3/uL Absolute Nucleated RBC (0.00-0.01) x10^3u/L Lymphocytes % (24.0-44.0) % Monocytes % (0.0-12.0) % Eosinophils % (0.00-5.0) % Basophils % (0.0-0.4) % Absolute Granulocytes (1.4-6.9) x10^3/uL Segmented Neutrophils (36.-66.) % Lymphocytes (Manual) (24-44) % Monocytes (Manual) (0.0-12.0) % Eosinophils (Manual) (0.00-3.0) % Basophils (Manual) (0.0-1.0) % Basophils # (0-0.4) x10^3/uL Hypochromia Platelet Estimate (NORMAL) RBC Morphology Anisocytosis Stomatocytes Puncture Site pCO2 (35-45) mmHg pO2 (75-100) mmHg Base Excess (-2.0-2.0) O2 Saturation (94-100) g/dF ABG pH (7.35-7.45) ABG HCO3 (22-28) ABG O2 Sat (Measured) (95-100) % Devin Test A-a Gradient a/A Ratio Hemoglobin Carboxyhemoglobin (0.0-6.9) % THgb Methemoglobin (1.4-1.5) % Potassium (3.5-5.1) Temperature C POC O2 Flow Rate % Sodium (137-145) mmol/L Chloride (98-107) mmol/L Carbon Dioxide (22-30) mmol/L Anion Gap (5-15) MEQ/L BUN (9-20) mg/dL Creatinine (0.66-1.25) mg/dL Estimated GFR ML/MIN Glucose (74-106) mg/dL POC Glucometer 157 H (74 to 106) mg/dL Lactic Acid (0.4-2.0) Calcium (8.4-10.2) mg/dL Total Bilirubin (0.2-1.3) mg/dL AST (17-59) U/L ALT (0-50) U/L Alkaline Phosphatase (38-126) U/L Ammonia (9-30) umol/L Troponin I (0.000-0.034) ng/mL NT-Pro-B Natriuret Pep (<300) pg/mL Serum Total Protein (6.3-8.2) g/dL Albumin (3.5-5.0) g/dL Amylase (30-110) U/L Lipase (23-300) U/L Urine Color (Yellow) Urine Appearance (Clear) Urine pH (4.6-8.0) Ur Specific Viola (1.005-1.030) Urine Protein (Negative) Urine Glucose (UA) (Negative) mg/dL Urine Ketones (Negative) Urine Blood (Negative) Urine Nitrite (Negative) Urine Bilirubin (Negative) Urine Urobilinogen (0.2) mg/dL Ur Leukocyte Esterase (Negative) U Hyaline Cast (Auto) (0-2) /LPF Urine Microscopic RBC (0-5) /HPF Urine Microscopic WBC (0-5) /HPF Ur Epithelial Cells (None Seen) /HPF Urine Bacteria (None Seen) /HPF Urine Culture Reflexed (NO) Monoscreen (NEGATIVE) Influenza Type A Ag NEGATIVE (NEGATIVE) Influenza Type B Ag NEGATIVE (NEGATIVE) RSV (PCR) NEGATIVE (NEGATIVE) SARS-CoV-2 (PCR) NEGATIVE (NEGATIVE) Group A Strep Antibody NOT DETECTED (NEGATIVE) 04/11/23 04/11/23 04/11/23 Range/Units 18:35 18:35 18:35 WBC (4.0-10.5) x10^3/uL RBC (4.1-5.6) x10^6/uL Hgb (12.5-18.0) g/dL Hct (42-50) % MCV (78-100) fL MCH (26-32) pg MCHC (32-36) g/dL RDW (11.5-14.0) % Plt Count (150-450) x10^3/uL MPV (7.5-11.0) fL Gran % (36.0-66.0) % Immature Gran % (Auto) (0.00-0.4) % Nucleat RBC Rel Count (0.00-0.1) % Eos # (Auto) (0-0.5) x10^3/uL Immature Gran # (Auto) (0.00-0.03) x10^3u/L Absolute Lymphs (auto) (1.0-4.6) x10^3/uL Absolute Monos (auto) (0.0-1.3) x10^3/uL Absolute Nucleated RBC (0.00-0.01) x10^3u/L Lymphocytes % (24.0-44.0) % Monocytes % (0.0-12.0) % Eosinophils % (0.00-5.0) % Basophils % (0.0-0.4) % Absolute Granulocytes (1.4-6.9) x10^3/uL Segmented Neutrophils (36.-66.) % Lymphocytes (Manual) (24-44) % Monocytes (Manual) (0.0-12.0) % Eosinophils (Manual) (0.00-3.0) % Basophils (Manual) (0.0-1.0) % Basophils # (0-0.4) x10^3/uL Hypochromia Platelet Estimate (NORMAL) RBC Morphology Anisocytosis Stomatocytes Puncture Site pCO2 (35-45) mmHg pO2 (75-100) mmHg Base Excess (-2.0-2.0) O2 Saturation (94-100) g/dF ABG pH (7.35-7.45) ABG HCO3 (22-28) ABG O2 Sat (Measured) (95-100) % Devin Test A-a Gradient a/A Ratio Hemoglobin Carboxyhemoglobin (0.0-6.9) % THgb Methemoglobin (1.4-1.5) % Potassium (3.5-5.1) Temperature C POC O2 Flow Rate % Sodium (137-145) mmol/L Chloride (98-107) mmol/L Carbon Dioxide (22-30) mmol/L Anion Gap (5-15) MEQ/L BUN (9-20) mg/dL Creatinine (0.66-1.25) mg/dL Estimated GFR ML/MIN Glucose (74-106) mg/dL POC Glucometer (74 to 106) mg/dL Lactic Acid (0.4-2.0) Calcium (8.4-10.2) mg/dL Total Bilirubin (0.2-1.3) mg/dL AST (17-59) U/L ALT (0-50) U/L Alkaline Phosphatase (38-126) U/L Ammonia < 9 L (9-30) umol/L Troponin I (0.000-0.034) ng/mL NT-Pro-B Natriuret Pep 844 (<300) pg/mL Serum Total Protein (6.3-8.2) g/dL Albumin (3.5-5.0) g/dL Amylase (30-110) U/L Lipase (23-300) U/L Urine Color (Yellow) Urine Appearance (Clear) Urine pH (4.6-8.0) Ur Specific Viola (1.005-1.030) Urine Protein (Negative) Urine Glucose (UA) (Negative) mg/dL Urine Ketones (Negative) Urine Blood (Negative) Urine Nitrite (Negative) Urine Bilirubin (Negative) Urine Urobilinogen (0.2) mg/dL Ur Leukocyte Esterase (Negative) U Hyaline Cast (Auto) (0-2) /LPF Urine Microscopic RBC (0-5) /HPF Urine Microscopic WBC (0-5) /HPF Ur Epithelial Cells (None Seen) /HPF Urine Bacteria (None Seen) /HPF Urine Culture Reflexed (NO) Monoscreen POSITIVE (NEGATIVE) Influenza Type A Ag (NEGATIVE) Influenza Type B Ag (NEGATIVE) RSV (PCR) (NEGATIVE) SARS-CoV-2 (PCR) (NEGATIVE) Group A Strep Antibody (NEGATIVE) 04/11/23 04/11/23 04/11/23 Range/Units 18:35 18:35 18:35 WBC 27.6 H* (4.0-10.5) x10^3/uL RBC 4.11 (4.1-5.6) x10^6/uL Hgb 11.1 L (12.5-18.0) g/dL Hct 36.1 L (42-50) % MCV 87.8 (78-100) fL MCH 27.0 (26-32) pg MCHC 30.7 L (32-36) g/dL RDW 16.3 H (11.5-14.0) % Plt Count 221 (150-450) x10^3/uL MPV 12.7 H (7.5-11.0) fL Gran % 91.6 H (36.0-66.0) % Immature Gran % (Auto) 0.8 H (0.00-0.4) % Nucleat RBC Rel Count 0.0 (0.00-0.1) % Eos # (Auto) 0.09 (0-0.5) x10^3/uL Immature Gran # (Auto) 0.23 H (0.00-0.03) x10^3u/L Absolute Lymphs (auto) 1.01 (1.0-4.6) x10^3/uL Absolute Monos (auto) 0.84 (0.0-1.3) x10^3/uL Absolute Nucleated RBC 0.00 (0.00-0.01) x10^3u/L Lymphocytes % 3.7 L (24.0-44.0) % Monocytes % 3.0 (0.0-12.0) % Eosinophils % 0.3 (0.00-5.0) % Basophils % 0.6 (0.0-0.4) % Absolute Granulocytes 25.28 H (1.4-6.9) x10^3/uL Segmented Neutrophils 92 H (36.-66.) % Lymphocytes (Manual) 5 L (24-44) % Monocytes (Manual) 1 (0.0-12.0) % Eosinophils (Manual) 1 (0.00-3.0) % Basophils (Manual) 1 (0.0-1.0) % Basophils # 0.17 (0-0.4) x10^3/uL Hypochromia 1+ Platelet Estimate NORMAL (NORMAL) RBC Morphology ABNORMAL Anisocytosis 1+ Stomatocytes 1+ Puncture Site pCO2 (35-45) mmHg pO2 (75-100) mmHg Base Excess (-2.0-2.0) O2 Saturation (94-100) g/dF ABG pH (7.35-7.45) ABG HCO3 (22-28) ABG O2 Sat (Measured) (95-100) % Devin Test A-a Gradient a/A Ratio Hemoglobin Carboxyhemoglobin (0.0-6.9) % THgb Methemoglobin (1.4-1.5) % Potassium 5.4 H (3.5-5.1) Temperature C POC O2 Flow Rate % Sodium 138 (137-145) mmol/L Chloride 106 (98-107) mmol/L Carbon Dioxide 27 (22-30) mmol/L Anion Gap 9.9 (5-15) MEQ/L BUN 34 H (9-20) mg/dL Creatinine 2.77 H (0.66-1.25) mg/dL Estimated GFR 22.1 ML/MIN Glucose 160 H (74-106) mg/dL POC Glucometer (74 to 106) mg/dL Lactic Acid (0.4-2.0) Calcium 9.2 (8.4-10.2) mg/dL Total Bilirubin 0.70 (0.2-1.3) mg/dL AST 35 (17-59) U/L ALT 20 (0-50) U/L Alkaline Phosphatase 65 (38-126) U/L Ammonia (9-30) umol/L Troponin I < 0.012 (0.000-0.034) ng/mL NT-Pro-B Natriuret Pep (<300) pg/mL Serum Total Protein 7.5 (6.3-8.2) g/dL Albumin 4.0 (3.5-5.0) g/dL Amylase 91 (30-110) U/L Lipase 128 (23-300) U/L Urine Color (Yellow) Urine Appearance (Clear) Urine pH (4.6-8.0) Ur Specific Viola (1.005-1.030) Urine Protein (Negative) Urine Glucose (UA) (Negative) mg/dL Urine Ketones (Negative) Urine Blood (Negative) Urine Nitrite (Negative) Urine Bilirubin (Negative) Urine Urobilinogen (0.2) mg/dL Ur Leukocyte Esterase (Negative) U Hyaline Cast (Auto) (0-2) /LPF Urine Microscopic RBC (0-5) /HPF Urine Microscopic WBC (0-5) /HPF Ur Epithelial Cells (None Seen) /HPF Urine Bacteria (None Seen) /HPF Urine Culture Reflexed (NO) Monoscreen (NEGATIVE) Influenza Type A Ag (NEGATIVE) Influenza Type B Ag (NEGATIVE) RSV (PCR) (NEGATIVE) SARS-CoV-2 (PCR) (NEGATIVE) Group A Strep Antibody (NEGATIVE) 04/11/23 04/11/23 Range/Units 18:35 18:23 WBC (4.0-10.5) x10^3/uL RBC (4.1-5.6) x10^6/uL Hgb (12.5-18.0) g/dL Hct (42-50) % MCV (78-100) fL MCH (26-32) pg MCHC (32-36) g/dL RDW (11.5-14.0) % Plt Count (150-450) x10^3/uL MPV (7.5-11.0) fL Gran % (36.0-66.0) % Immature Gran % (Auto) (0.00-0.4) % Nucleat RBC Rel Count (0.00-0.1) % Eos # (Auto) (0-0.5) x10^3/uL Immature Gran # (Auto) (0.00-0.03) x10^3u/L Absolute Lymphs (auto) (1.0-4.6) x10^3/uL Absolute Monos (auto) (0.0-1.3) x10^3/uL Absolute Nucleated RBC (0.00-0.01) x10^3u/L Lymphocytes % (24.0-44.0) % Monocytes % (0.0-12.0) % Eosinophils % (0.00-5.0) % Basophils % (0.0-0.4) % Absolute Granulocytes (1.4-6.9) x10^3/uL Segmented Neutrophils (36.-66.) % Lymphocytes (Manual) (24-44) % Monocytes (Manual) (0.0-12.0) % Eosinophils (Manual) (0.00-3.0) % Basophils (Manual) (0.0-1.0) % Basophils # (0-0.4) x10^3/uL Hypochromia Platelet Estimate (NORMAL) RBC Morphology Anisocytosis Stomatocytes Puncture Site RIGHT BRACHIAL pCO2 42 (35-45) mmHg pO2 49 L* (75-100) mmHg Base Excess -0.4 (-2.0-2.0) O2 Saturation 83.4 L (94-100) g/dF ABG pH 7.38 (7.35-7.45) ABG HCO3 24.8 (22-28) ABG O2 Sat (Measured) 84.3 L (95-100) % Devin Test NOT APPLICABLE A-a Gradient 212 a/A Ratio 0.19 Hemoglobin 11.4 Carboxyhemoglobin 1.1 (0.0-6.9) % THgb Methemoglobin 0.0 L (1.4-1.5) % Potassium 5.4 H (3.5-5.1) Temperature 37.0 C POC O2 Flow Rate 44 % Sodium (137-145) mmol/L Chloride (98-107) mmol/L Carbon Dioxide (22-30) mmol/L Anion Gap (5-15) MEQ/L BUN (9-20) mg/dL Creatinine (0.66-1.25) mg/dL Estimated GFR ML/MIN Glucose (74-106) mg/dL POC Glucometer (74 to 106) mg/dL Lactic Acid 0.8 (0.4-2.0) Calcium (8.4-10.2) mg/dL Total Bilirubin (0.2-1.3) mg/dL AST (17-59) U/L ALT (0-50) U/L Alkaline Phosphatase (38-126) U/L Ammonia (9-30) umol/L Troponin I (0.000-0.034) ng/mL NT-Pro-B Natriuret Pep (<300) pg/mL Serum Total Protein (6.3-8.2) g/dL Albumin (3.5-5.0) g/dL Amylase (30-110) U/L Lipase (23-300) U/L Urine Color Yellow (Yellow) Urine Appearance Clear (Clear) Urine pH 7.0 (4.6-8.0) Ur Specific Viola 1.020 (1.005-1.030) Urine Protein 100 A (Negative) Urine Glucose (UA) 500 A (Negative) mg/dL Urine Ketones Trace A (Negative) Urine Blood Negative (Negative) Urine Nitrite Negative (Negative) Urine Bilirubin Negative (Negative) Urine Urobilinogen 0.2 (0.2) mg/dL Ur Leukocyte Esterase Negative (Negative) U Hyaline Cast (Auto) 3-5 A (0-2) /LPF Urine Microscopic RBC 0-2 (0-5) /HPF Urine Microscopic WBC 0-2 (0-5) /HPF Ur Epithelial Cells None Seen (None Seen) /HPF Urine Bacteria None Seen (None Seen) /HPF Urine Culture Reflexed ORDERED SEPARATELY (NO) Monoscreen (NEGATIVE) Influenza Type A Ag (NEGATIVE) Influenza Type B Ag (NEGATIVE) RSV (PCR) (NEGATIVE) SARS-CoV-2 (PCR) (NEGATIVE) Group A Strep Antibody (NEGATIVE) - Progress Progress: unchanged Air Movement: fair Blood Culture(s) Obtained: Yes <YAZMIN DANIELS - Last Filed: 04/11/23 18:44> - Progress Discussed with : Other (Spoke with Dr. Ramsey - admit ) Will see patient in: hospital (full admit) Counseled pt/family regarding: lab results, diagnosis, rad results <TRAVIS PARRY - Last Filed: 04/11/23 21:14> - Progress Progress Note: 04/11/23 18:48 This patient's medical issue is 1 of high complexity. The level of complexity in the work-up performed is based on review of the patient's past medical history, review the patient's medication list, review of the patient's drug allergy list, history present illness and physical findings on examination. This patient work-up includes placement of intravenous line, ABG, CBC, CMP, t roponin level, BNP, twelve-lead EKG, chest x-ray, CT scan of the head, CT scan of the abdomen and pelvis without contrast, placement of Gamble catheter, respiratory therapy evaluation and management, placement of a nasogastric tube, urinalysis and obtaining a [id number] glucose level. I also added an ammonia level. The care of this patient will be transferred to Dr. Parry at the time of shift change. The patient history, presenting complaint/medical issue, drug allergies, medication list and work-up performed with pending work-up results that he will follow-up on. Dr. Parry will make final disposition. (YAZMIN DANIELS) 04/11/23 19:[address] Parry @ ~ 1920: pupils 3mm. pharynx pink, lungs have minimal creps over posterior bases, 2/6 murmur, abdominal distension with tympanic B.S., 1+ ankle edema, lethargic. (TRAVIS PARRY) Medical Desision Making - Diagnostic Testing Diagnostic test were ordered, analyzed, and reviewed by me: No <YAZMIN DANIELS - Last Filed: 04/11/23 18:44> - Discussion of managment Care discussed with:: hospitalist Reviewed:: Test results Agreed on:: Treatment plan, decision to admit Will see patient: in hospital - Diagnostic Testing Diagnostic test were ordered, analyzed, and reviewed by me: Yes Radiological Interpretation: Discussed w/ radiologist <TRAVIS PARRY - Last Filed: 04/11/23 21:14> - Departure Departure Disposition: In-patient Admission Critical Care Time: Yes Critical Care Time(excluding separately billable procedures): Critical 30-74 mins (30) <YAZMIN DANIELS - Last Filed: 04/11/23 18:44> <TRAVIS PARRY - Last Filed: 04/11/23 21:14> - Departure Clinical Impression: Altered mental status, Hypoxia, Respiratory distress, Mononucleosis, LLL pneumonia Condition: Serious Referrals: [facility] [Primary Care Provider] - Follow up/PCP as directed
[2023-04-11 18:47] LABS: Absolute Neutrophil Ct (ANC) 25.28 x10^3/uL (1.4-6.9); BASOPHIL % 0.6 % (0.0-0.4); Basophil (Absolute #) 0.17 x10^3/uL (0-0.4); Eosinophil % 0.3 % (0.00-5.0); Eosinophil (Absolute #) 0.09 x10^3/uL (0-0.5); Hematocrit 36.1 % (42-50); Hemoglobin 11.1 g/dL (12.5-18.0); IMMATURE GRAN # 0.23 x10^3u/L (0.00-0.03); IMMATURE GRAN % 0.8 % (0.00-0.4); Lymphocyte (Absolute #) 1.01 x10^3/uL (1.0-4.6); Lymphocytes % 3.7 % (24.0-44.0); Mean Cell Volume 87.8 fL (78-100); Mean Corpuscular Hgb Concent. 30.7 g/dL (32-36); Mean Platelet Volume 12.7 fL (7.5-11.0); Monocyte (Absolute #) 0.84 x10^3/uL (0.0-1.3); Neutrophil % 91.6 % (36.0-66.0); Platelet Count 221 x10^3/uL (150-450); Red Blood Count 4.11 x10^6/uL (4.1-5.6); Red Cell Distribution Width 16.3 % (11.5-14.0)
[2023-04-11 18:50] LABS: White Blood Count 27.6 x10^3/uL (4.0-10.5)
[2023-04-11] MEDS ORDERED: FEVERALL 650 MG ONE (18:52)
[2023-04-11] MEDS ORDERED: FEVERALL 650 MG PR ONE (18:52)
[2023-04-11 18:55] LABS: Appearance Clear (Clear); Bilirubin Negative (Negative); Blood Negative (Negative); Glucose, Urine 500 mg/dL (Negative); Ketones Trace (Negative); Leukocyte Esterase Negative (Negative); Nitrite Negative (Negative); Protein,Urine Dip 100 (Negative); Urobilinogen 0.2 mg/dL (0.2)
[2023-04-11 18:59] LABS: ANION GAP 9.9 MEQ/L (5-15); BILIRUBIN,TOTAL 0.7 mg/dL (0.2-1.3); Calcium 9.2 mg/dL (8.4-10.2); Creatinine 1 2.77 mg/dL (0.66-1.25); EST GLOMERULAR FILTRATION RATE 22.1 ML/MIN; Potassium 5.4 mmol/L (3.5-5.1); Total Protein 7.5 g/dL (6.3-8.2)
[2023-04-11 19:00] LABS: Bacteria None Seen /HPF (None Seen); Epithelial Cells None Seen /HPF (None Seen); RBC 0-2 /HPF (0-5); WBC 0-2 /HPF (0-5)
[2023-04-11 19:09] LABS: ADD URINE CULTURE? ORDERED SEPARATELY (NO)
[2023-04-11 19:30] LABS: INFLUENZA A NEGATIVE (NEGATIVE); INFLUENZA B NEGATIVE (NEGATIVE); RESPIRATORY SYNCTIAL VIRUS NEGATIVE (NEGATIVE); SARS-CoV-2 Xpert Express NEGATIVE (NEGATIVE)
[2023-04-11 19:58] LABS: Basophil 1 % (0.0-1.0); Eosinophil 1 % (0.00-3.0); Lymphocytes 5 % (24-44); Monocyte 1 % (0.0-12.0); Neutrophils 92 % (36.-66.); Total Cells Counted 100
[2023-04-11 20:00] LABS: Stomatocyte 1+
[2023-04-11 20:01] LABS: ANISOCYTOSIS 1+; Hypochromia 1+; Platelet Estimate NORMAL (NORMAL)
[2023-04-11] MEDS ORDERED: Sodium Chloride 0.9% 1000 ML 1,000 ML IV STA ×2 (20:13→21:26)
[2023-04-11] MEDS ORDERED: Sodium Chloride 0.9% 1000 ML 1,000 ML ONE ×2 (20:16→21:23)
[2023-04-11] MEDS ORDERED: PROVENTIL 2.5 MG/3 ML NEB IH ONE ×2 (20:43→21:07)
[2023-04-11] MEDS ORDERED: Zithromax 500 MG/ 250 ML NaCl Premix 500 MG/250 ML IVPB IV STA (20:43)
[2023-04-11] MEDS ORDERED: ROCEPHIN 1 Gm-D5w 50 ml Bag** 1 G/50 ML IVPB IV STA (20:43)
[2023-04-11] MEDS ORDERED: ROCEPHIN 1 Gm-D5w 50 ml Bag** 1 G/50 ML IVPB IV ONE (20:51)
[2023-04-11] MEDS ORDERED: Zithromax 500 MG/ 250 ML NaCl Premix 500 MG/250 ML IVPB IV ONE (20:51)
[2023-04-11] MEDS ORDERED: Zofran 4 MG/2 ML VIAL IV PRN (21:48)
--- NOTE | 2023-04-11 21:56 | PCM.HP ---
History of Present Illness - Chief Complaint Chief Complaint: LLLpneumonia History of Present Illness: is a 83 year old male with history of AFib, COPD, CHF, HTN, CAD s/p stents, HLP, DMII, GERD presented with AMS and SOB with hypoxia on RA. He apparently had a bronchoscopy done at an outside hospital today as a follow-up to an abnormal chest xray. Procedure was unremarkable, pt sent home. But later in the late afternoon, he became lethargic, altered and SOB. EMS was called and when they arrived, he was minimally responsive and O2 sat was found to be in the 80s on RA. Lasix, Duoneb and O2 was given, and he was brought into ER here. In ER, O2 sat was high 80s on RA, and improved to 100% on a non-rebreather O2. CRX here shows LLL infiltrate, and labs revealed a WBC of 26. He is then admitted for LLL PNA and acute respiratory failure. Incidentally, his abdomen was found to be distended, so NGT was placed and a L of gastric content - dark colored - was suctioned. He is now on intermittent suction with NGT in place. Abd is soft on exam with tympanic BS. He is on 5Ls NC O2 now, lethargic, still confused. Family not at bedside - Review of Systems Constitutional: Lethargy Eyes: No Symptoms Ears, Nose, & Throat: No Symptoms Respiratory: Short Of Breath Cardiac: No Symptoms Abdominal/Gastrointestinal: Abdominal Pain Genitourinary Symptoms: No Symptoms Musculoskeletal: No Symptoms Skin: No Symptoms Neurological: Lethargy Psychological: No Symptoms Endocrine: No Symptoms Hematologic/Lymphatic: No Symptoms, Easy Bruising Immunological/Allergic: No Symptoms Medications & Allergies Home Medications: Home Medication List Amlodipine Besylate 5 mg [Norvasc 5 mg] 10 mg PO DAILY 05/16/22 [History Confirmed 04/11/23] Apixaban [Eliquis 5 mg Tablet] 5 mg PO BID 05/16/22 [History Confirmed 04/11/23] Hydrocodone/Acetaminophen [Hydrocodone-Acetamin 10-325 mg] 1 tab PO Q6HPRN PRN 05/16/22 [History Confirmed 04/11/23] Methylphenidate 5 mg [Ritalin 5 MG] 20 mg PO QAM 05/16/22 [History Confirmed 04/11/23] Metoprolol Tartrate 25 mg [Lopressor 25MG Tab] 25 mg PO BID 05/16/22 [History Confirmed 04/11/23] Multivitamin [Multivitamins] 1 tab PO DAILY 05/16/22 [History Confirmed 04/11/23] Omeprazole 40 mg PO DAILY 05/16/22 [History Confirmed 04/11/23] Pregabalin 50 mg [Lyrica 50MG] 150 mg PO BID 05/16/22 [History Confirmed 04/11/23] Tamsulosin HCl 0.4 mg [Flomax 0.4 MG] 0.4 mg PO DAILY 05/16/22 [History Confirmed 04/11/23] Albuterol 2.5 mg/3 ml Neb [Proventil 2.5 mg/3 ml Neb] 1 neb IH DAILY PRN PRN 07/08/22 [History Confirmed 04/11/23] Dapagliflozin Propanediol [Farxiga] 10 mg PO DAILY 01/08/23 [History Confirmed 04/11/23] Ferrous Sulfate 325 mg [Feosol 325 mg] 325 mg PO DAILY 01/08/23 [History Confirmed 04/11/23] Furosemide 20 mg [Lasix 20 mg] 20 mg PO DAILY 01/08/23 [History Confirmed 04/11/23] Nitroglycerin 0.4 mg Tablet [Nitrostat 0.4 MG Tablet] 0.4 mg SL UD 01/08/23 [History Confirmed 04/11/23] Sucralfate 1 gm [Carafate 1 GM] 1 gm PO QID 01/08/23 [History Confirmed 04/11/23] Allopurinol 300 mg [Zyloprim 300 mg] 1 tab PO DAILY 02/12/23 [History Confirmed 04/11/23] Methylphenidate 5 mg [Ritalin 5 MG] 10 mg PO LUNCH 02/12/23 [History Confirmed 04/11/23] Isosorbide Mononitrate 30 mg [Imdur 30 MG] 30 mg PO DAILY 03/07/23 [History Confirmed 04/11/23] Albuterol/Ipratropium 3ml Neb* [DUONEB 0.5-3 MG/3 ml Neb] 3 ml IH QID PRN 04/11/23 [History Confirmed 04/11/23] Bimatoprost 0.01% [Lumigan 0.01% 2.5 ml] 2.5 ml OP HS 04/11/23 [History Confirmed 04/11/23] Insulin Glargine/Lixisenatide [Soliqua 100 Unit-33 Mcg/ml Pen] 20 units SQ DAILY 04/11/23 [History Confirmed 04/11/23] Insulin Regular, Human [Novolin R] 100 unit SQ UD 04/11/23 [History Confirmed 04/11/23] Metformin HCl 500 mg [Glucophage 500 MG] 1,000 mg PO BIDWM 04/11/23 [History Confirmed 04/11/23] Allergies/Adverse Reactions: Allergies Allergy/AdvReac Type Severity Reaction Status Date / Time Iodinated Contrast Media Allergy Intermediate unknown- Verified 04/11/23 18:41 [Iodinated Contrast Media - hives IV Dye] morphine Allergy Intermediate confusion Verified 04/11/23 18:41 and combative hydromorphone HCl AdvReac Intermediate confusion Verified 04/11/23 18:41 [From Dilaudid] and combative oxycodone HCl AdvReac Intermediate confusion/ Verified 04/11/23 18:41 [From OxyContin] combative - Past Medical History Past Medical History: Yes Neurological History: No Pertinent History ENT History: Cataracts, Glaucoma Cardiac History: Hypertension, Myocardial Infarction (NE), Other Respiratory History: Asthma, COPD, Other Endocrine Medical History: Diabetes Type II Musculoskelatal History: Fractures GI Medical History: GERD, Gallbladder Disease History: Other Pyscho-Social History: Depression Male Reproductive Disorders: Prostate Problems Comment: COVID-19, L Wrist Fracture (1982), Open Heart Surgery (1993), LE fracture (unable to recall which side, 1959's), Low Back Pain, LB surgery (1994 with rods placed) - Past Surgical History Past Surgical History: Yes Neuro Surgical History: No Pertinent History Cardiac History: CABG, Cardiac Catheterization, Cardiac Stent Respiratory Surgery: Chest Surgery GI Surgical History: Appendectomy, Cholecystectomy Genitourinary Surgical Hx: No Pertinent History Musculskeletal Surgical Hx: Orthopedic Surgery Male Surgical History: No Pertinent History Other Surgical History: back surgery, fem pop, steriod injection in various joints, carpal tunnel surgery - Social History Smoking Status: Never smoker How long have you smoked: 1975 Exposure to second hand smoke: No Alcohol: None Drug Use: none Significant Family History: no pertinent family hx - Physical Exam Vital Signs: Vital Signs - 24 hr Temp Pulse Resp BP BP Pulse Ox 04/11/23 21:25 97 H 18 99 04/11/23 21:00 93 H 21 145/57 100 04/11/23 20:50 93 H 16 113/44 100 04/11/23 20:40 87 15 103/46 100 04/11/23 20:30 88 15 112/50 100 04/11/23 20:20 92 H 15 104/45 100 04/11/23 20:10 95 H 15 95/45 99 04/11/23 20:00 100.8 F 101 H 15 97/51 100 04/11/23 19:50 99 H 16 115/52 100 04/11/23 19:40 99 H 15 125/54 100 04/11/23 19:30 102 H 15 133/55 99 04/11/23 19:20 105 H 18 120/57 100 04/11/23 18:49 109 H 19 134/62 99 04/11/23 18:41 105 H 18 100 04/11/23 18:27 110 H 24 95 04/11/23 18:25 99.6 F 112 H 24 129/64 86 L General Appearance: mild distress, lethargy Neurologic Exam: disoriented Eye Exam: eyes nml inspection Ears, Nose, Throat Exam: normal ENT inspection Neck Exam: normal inspection, non-tender, supple Respiratory Exam: respiratory distress, diminished breath sounds, crackles/rales Cardiovascular Exam: tachycardia, irregular Gastrointestinal/Abdomen Exam: soft, tenderness, distention Rectal Exam: deferred Back Exam: normal inspection Extremity Exam: pedal edema Skin Exam: normal color, warm, dry Results - Labs Lab/Micro Results: Lab Results-Last 24 Hours 04/11/23 04/11/23 04/11/23 Range/Units 18:23 18:35 18:35 WBC 27.6 H* (4.0-10.5) x10^3/uL RBC 4.11 (4.1-5.6) x10^6/uL Hgb 11.1 L (12.5-18.0) g/dL Hct 36.1 L (42-50) % MCV 87.8 (78-100) fL MCH 27.0 (26-32) pg MCHC 30.7 L (32-36) g/dL RDW 16.3 H (11.5-14.0) % Plt Count 221 (150-450) x10^3/uL MPV 12.7 H (7.5-11.0) fL Gran % 91.6 H (36.0-66.0) % Immature Gran % (Auto) 0.8 H (0.00-0.4) % Nucleat RBC Rel Count 0.0 (0.00-0.1) % Eos # (Auto) 0.09 (0-0.5) x10^3/uL Immature Gran # (Auto) 0.23 H (0.00-0.03) x10^3u/L Absolute Lymphs (auto) 1.01 (1.0-4.6) x10^3/uL Absolute Monos (auto) 0.84 (0.0-1.3) x10^3/uL Absolute Nucleated RBC 0.00 (0.00-0.01) x10^3u/L Lymphocytes % 3.7 L (24.0-44.0) % Monocytes % 3.0 (0.0-12.0) % Eosinophils % 0.3 (0.00-5.0) % Basophils % 0.6 (0.0-0.4) % Absolute Granulocytes 25.28 H (1.4-6.9) x10^3/uL Segmented Neutrophils 92 H (36.-66.) % Lymphocytes (Manual) 5 L (24-44) % Monocytes (Manual) 1 (0.0-12.0) % Eosinophils (Manual) 1 (0.00-3.0) % Basophils (Manual) 1 (0.0-1.0) % Basophils # 0.17 (0-0.4) x10^3/uL Hypochromia 1+ Platelet Estimate NORMAL (NORMAL) RBC Morphology ABNORMAL Anisocytosis 1+ Stomatocytes 1+ Puncture Site RIGHT BRACHIAL pCO2 42 (35-45) mmHg pO2 49 L* (75-100) mmHg Base Excess -0.4 (-2.0-2.0) O2 Saturation 83.4 L (94-100) g/dF ABG pH 7.38 (7.35-7.45) ABG HCO3 24.8 (22-28) ABG O2 Sat (Measured) 84.3 L (95-100) % Devin Test NOT APPLICABLE A-a Gradient 212 a/A Ratio 0.19 Hemoglobin 11.4 Carboxyhemoglobin 1.1 (0.0-6.9) % THgb Methemoglobin 0.0 L (1.4-1.5) % Potassium 5.4 H (3.5-5.1) Temperature 37.0 C POC O2 Flow Rate 44 % Sodium (137-145) mmol/L Chloride (98-107) mmol/L Carbon Dioxide (22-30) mmol/L Anion Gap (5-15) MEQ/L BUN (9-20) mg/dL Creatinine (0.66-1.25) mg/dL Estimated GFR ML/MIN Glucose (74-106) mg/dL POC Glucometer (74 to 106) mg/dL Lactic Acid 0.8 (0.4-2.0) Calcium (8.4-10.2) mg/dL Total Bilirubin (0.2-1.3) mg/dL AST (17-59) U/L ALT (0-50) U/L Alkaline Phosphatase (38-126) U/L Ammonia (9-30) umol/L Troponin I (0.000-0.034) ng/mL NT-Pro-B Natriuret Pep (<300) pg/mL Serum Total Protein (6.3-8.2) g/dL Albumin (3.5-5.0) g/dL Amylase (30-110) U/L Lipase (23-300) U/L Urine Color Yellow (Yellow) Urine Appearance Clear (Clear) Urine pH 7.0 (4.6-8.0) Ur Specific [place] 1.020 (1.005-1.030) Urine Protein 100 A (Negative) Urine Glucose (UA) 500 A (Negative) mg/dL Urine Ketones Trace A (Negative) Urine Blood Negative (Negative) Urine Nitrite Negative (Negative) Urine Bilirubin Negative (Negative) Urine Urobilinogen 0.2 (0.2) mg/dL Ur Leukocyte Esterase Negative (Negative) U Hyaline Cast (Auto) 3-5 A (0-2) /LPF Urine Microscopic RBC 0-2 (0-5) /HPF Urine Microscopic WBC 0-2 (0-5) /HPF Ur Epithelial Cells None Seen (None Seen) /HPF Urine Bacteria None Seen (None Seen) /HPF Urine Culture Reflexed ORDERED SEPARATELY (NO) Monoscreen (NEGATIVE) Influenza Type A Ag (NEGATIVE) Influenza Type B Ag (NEGATIVE) RSV (PCR) (NEGATIVE) SARS-CoV-2 (PCR) (NEGATIVE) Group A Strep Antibody (NEGATIVE) 04/11/23 04/11/23 04/11/23 Range/Units 18:35 18:35 18:35 WBC (4.0-10.5) x10^3/uL RBC (4.1-5.6) x10^6/uL Hgb (12.5-18.0) g/dL Hct (42-50) % MCV (78-100) fL MCH (26-32) pg MCHC (32-36) g/dL RDW (11.5-14.0) % Plt Count (150-450) x10^3/uL MPV (7.5-11.0) fL Gran % (36.0-66.0) % Immature Gran % (Auto) (0.00-0.4) % Nucleat RBC Rel Count (0.00-0.1) % Eos # (Auto) (0-0.5) x10^3/uL Immature Gran # (Auto) (0.00-0.03) x10^3u/L Absolute Lymphs (auto) (1.0-4.6) x10^3/uL Absolute Monos (auto) (0.0-1.3) x10^3/uL Absolute Nucleated RBC (0.00-0.01) x10^3u/L Lymphocytes % (24.0-44.0) % Monocytes % (0.0-12.0) % Eosinophils % (0.00-5.0) % Basophils % (0.0-0.4) % Absolute Granulocytes (1.4-6.9) x10^3/uL Segmented Neutrophils (36.-66.) % Lymphocytes (Manual) (24-44) % Monocytes (Manual) (0.0-12.0) % Eosinophils (Manual) (0.00-3.0) % Basophils (Manual) (0.0-1.0) % Basophils # (0-0.4) x10^3/uL Hypochromia Platelet Estimate (NORMAL) RBC Morphology Anisocytosis Stomatocytes Puncture Site pCO2 (35-45) mmHg pO2 (75-100) mmHg Base Excess (-2.0-2.0) O2 Saturation (94-100) g/dF ABG pH (7.35-7.45) ABG HCO3 (22-28) ABG O2 Sat (Measured) (95-100) % Devin Test A-a Gradient a/A Ratio Hemoglobin Carboxyhemoglobin (0.0-6.9) % THgb Methemoglobin (1.4-1.5) % Potassium 5.4 H (3.5-5.1) Temperature C POC O2 Flow Rate % Sodium 138 (137-145) mmol/L Chloride 106 (98-107) mmol/L Carbon Dioxide 27 (22-30) mmol/L Anion Gap 9.9 (5-15) MEQ/L BUN 34 H (9-20) mg/dL Creatinine 2.77 H (0.66-1.25) mg/dL Estimated GFR 22.1 ML/MIN Glucose 160 H (74-106) mg/dL POC Glucometer (74 to 106) mg/dL Lactic Acid (0.4-2.0) Calcium 9.2 (8.4-10.2) mg/dL Total Bilirubin 0.70 (0.2-1.3) mg/dL AST 35 (17-59) U/L ALT 20 (0-50) U/L Alkaline Phosphatase 65 (38-126) U/L Ammonia (9-30) umol/L Troponin I < 0.012 (0.000-0.034) ng/mL NT-Pro-B Natriuret Pep 844 (<300) pg/mL Serum Total Protein 7.5 (6.3-8.2) g/dL Albumin 4.0 (3.5-5.0) g/dL Amylase 91 (30-110) U/L Lipase 128 (23-300) U/L Urine Color (Yellow) Urine Appearance (Clear) Urine pH (4.6-8.0) Ur Specific [place] (1.005-1.030) Urine Protein (Negative) Urine Glucose (UA) (Negative) mg/dL Urine Ketones (Negative) Urine Blood (Negative) Urine Nitrite (Negative) Urine Bilirubin (Negative) Urine Urobilinogen (0.2) mg/dL Ur Leukocyte Esterase (Negative) U Hyaline Cast (Auto) (0-2) /LPF Urine Microscopic RBC (0-5) /HPF Urine Microscopic WBC (0-5) /HPF Ur Epithelial Cells (None Seen) /HPF Urine Bacteria (None Seen) /HPF Urine Culture Reflexed (NO) Monoscreen (NEGATIVE) Influenza Type A Ag (NEGATIVE) Influenza Type B Ag (NEGATIVE) RSV (PCR) (NEGATIVE) SARS-CoV-2 (PCR) (NEGATIVE) Group A Strep Antibody (NEGATIVE) 04/11/23 04/11/23 04/11/23 Range/Units 18:35 18:35 18:38 WBC (4.0-10.5) x10^3/uL RBC (4.1-5.6) x10^6/uL Hgb (12.5-18.0) g/dL Hct (42-50) % MCV (78-100) fL MCH (26-32) pg MCHC (32-36) g/dL RDW (11.5-14.0) % Plt Count (150-450) x10^3/uL MPV (7.5-11.0) fL Gran % (36.0-66.0) % Immature Gran % (Auto) (0.00-0.4) % Nucleat RBC Rel Count (0.00-0.1) % Eos # (Auto) (0-0.5) x10^3/uL Immature Gran # (Auto) (0.00-0.03) x10^3u/L Absolute Lymphs (auto) (1.0-4.6) x10^3/uL Absolute Monos (auto) (0.0-1.3) x10^3/uL Absolute Nucleated RBC (0.00-0.01) x10^3u/L Lymphocytes % (24.0-44.0) % Monocytes % (0.0-12.0) % Eosinophils % (0.00-5.0) % Basophils % (0.0-0.4) % Absolute Granulocytes (1.4-6.9) x10^3/uL Segmented Neutrophils (36.-66.) % Lymphocytes (Manual) (24-44) % Monocytes (Manual) (0.0-12.0) % Eosinophils (Manual) (0.00-3.0) % Basophils (Manual) (0.0-1.0) % Basophils # (0-0.4) x10^3/uL Hypochromia Platelet Estimate (NORMAL) RBC Morphology Anisocytosis Stomatocytes Puncture Site pCO2 (35-45) mmHg pO2 (75-100) mmHg Base Excess (-2.0-2.0) O2 Saturation (94-100) g/dF ABG pH (7.35-7.45) ABG HCO3 (22-28) ABG O2 Sat (Measured) (95-100) % Devin Test A-a Gradient a/A Ratio Hemoglobin Carboxyhemoglobin (0.0-6.9) % THgb Methemoglobin (1.4-1.5) % Potassium (3.5-5.1) Temperature C POC O2 Flow Rate % Sodium (137-145) mmol/L Chloride (98-107) mmol/L Carbon Dioxide (22-30) mmol/L Anion Gap (5-15) MEQ/L BUN (9-20) mg/dL Creatinine (0.66-1.25) mg/dL Estimated GFR ML/MIN Glucose (74-106) mg/dL POC Glucometer 157 H (74 to 106) mg/dL Lactic Acid (0.4-2.0) Calcium (8.4-10.2) mg/dL Total Bilirubin (0.2-1.3) mg/dL AST (17-59) U/L ALT (0-50) U/L Alkaline Phosphatase (38-126) U/L Ammonia < 9 L (9-30) umol/L Troponin I (0.000-0.034) ng/mL NT-Pro-B Natriuret Pep (<300) pg/mL Serum Total Protein (6.3-8.2) g/dL Albumin (3.5-5.0) g/dL Amylase (30-110) U/L Lipase (23-300) U/L Urine Color (Yellow) Urine Appearance (Clear) Urine pH (4.6-8.0) Ur Specific [place] (1.005-1.030) Urine Protein (Negative) Urine Glucose (UA) (Negative) mg/dL Urine Ketones (Negative) Urine Blood (Negative) Urine Nitrite (Negative) Urine Bilirubin (Negative) Urine Urobilinogen (0.2) mg/dL Ur Leukocyte Esterase (Negative) U Hyaline Cast (Auto) (0-2) /LPF Urine Microscopic RBC (0-5) /HPF Urine Microscopic WBC (0-5) /HPF Ur Epithelial Cells (None Seen) /HPF Urine Bacteria (None Seen) /HPF Urine Culture Reflexed (NO) Monoscreen POSITIVE (NEGATIVE) Influenza Type A Ag (NEGATIVE) Influenza Type B Ag (NEGATIVE) RSV (PCR) (NEGATIVE) SARS-CoV-2 (PCR) (NEGATIVE) Group A Strep Antibody (NEGATIVE) 04/11/23 04/11/23 Range/Units 18:43 18:43 WBC (4.0-10.5) x10^3/uL RBC (4.1-5.6) x10^6/uL Hgb (12.5-18.0) g/dL Hct (42-50) % MCV (78-100) fL MCH (26-32) pg MCHC (32-36) g/dL RDW (11.5-14.0) % Plt Count (150-450) x10^3/uL MPV (7.5-11.0) fL Gran % (36.0-66.0) % Immature Gran % (Auto) (0.00-0.4) % Nucleat RBC Rel Count (0.00-0.1) % Eos # (Auto) (0-0.5) x10^3/uL Immature Gran # (Auto) (0.00-0.03) x10^3u/L Absolute Lymphs (auto) (1.0-4.6) x10^3/uL Absolute Monos (auto) (0.0-1.3) x10^3/uL Absolute Nucleated RBC (0.00-0.01) x10^3u/L Lymphocytes % (24.0-44.0) % Monocytes % (0.0-12.0) % Eosinophils % (0.00-5.0) % Basophils % (0.0-0.4) % Absolute Granulocytes (1.4-6.9) x10^3/uL Segmented Neutrophils (36.-66.) % Lymphocytes (Manual) (24-44) % Monocytes (Manual) (0.0-12.0) % Eosinophils (Manual) (0.00-3.0) % Basophils (Manual) (0.0-1.0) % Basophils # (0-0.4) x10^3/uL Hypochromia Platelet Estimate (NORMAL) RBC Morphology Anisocytosis Stomatocytes Puncture Site pCO2 (35-45) mmHg pO2 (75-100) mmHg Base Excess (-2.0-2.0) O2 Saturation (94-100) g/dF ABG pH (7.35-7.45) ABG HCO3 (22-28) ABG O2 Sat (Measured) (95-100) % Devin Test A-a Gradient a/A Ratio Hemoglobin Carboxyhemoglobin (0.0-6.9) % THgb Methemoglobin (1.4-1.5) % Potassium (3.5-5.1) Temperature C POC O2 Flow Rate % Sodium (137-145) mmol/L Chloride (98-107) mmol/L Carbon Dioxide (22-30) mmol/L Anion Gap (5-15) MEQ/L BUN (9-20) mg/dL Creatinine (0.66-1.25) mg/dL Estimated GFR ML/MIN Glucose (74-106) mg/dL POC Glucometer (74 to 106) mg/dL Lactic Acid (0.4-2.0) Calcium (8.4-10.2) mg/dL Total Bilirubin (0.2-1.3) mg/dL AST (17-59) U/L ALT (0-50) U/L Alkaline Phosphatase (38-126) U/L Ammonia (9-30) umol/L Troponin I (0.000-0.034) ng/mL NT-Pro-B Natriuret Pep (<300) pg/mL Serum Total Protein (6.3-8.2) g/dL Albumin (3.5-5.0) g/dL Amylase (30-110) U/L Lipase (23-300) U/L Urine Color (Yellow) Urine Appearance (Clear) Urine pH (4.6-8.0) Ur Specific [place] (1.005-1.030) Urine Protein (Negative) Urine Glucose (UA) (Negative) mg/dL Urine Ketones (Negative) Urine Blood (Negative) Urine Nitrite (Negative) Urine Bilirubin (Negative) Urine Urobilinogen (0.2) mg/dL Ur Leukocyte Esterase (Negative) U Hyaline Cast (Auto) (0-2) /LPF Urine Microscopic RBC (0-5) /HPF Urine Microscopic WBC (0-5) /HPF Ur Epithelial Cells (None Seen) /HPF Urine Bacteria (None Seen) /HPF Urine Culture Reflexed (NO) Monoscreen (NEGATIVE) Influenza Type A Ag NEGATIVE (NEGATIVE) Influenza Type B Ag NEGATIVE (NEGATIVE) RSV (PCR) NEGATIVE (NEGATIVE) SARS-CoV-2 (PCR) NEGATIVE (NEGATIVE) Group A Strep Antibody NOT DETECTED (NEGATIVE) - Radiology Impressions Radiology Exams & Impressions: Radiology Procedures Category Date Time Status ABDOMEN AND PELVIS W/0 CONTRAS [CT] Stat Exams 04/11/23 18:36 Taken CHEST WITHOUT CONTRAST [CT] Stat Exams 04/11/23 18:53 Taken HEAD WITHOUT CONTRAST [CT] Stat Exams 04/11/23 18:36 Taken - Other Procedures and Tests Respiratory Therapy 04/11/23 20:58 EKG REPEAT IN AM Oxygen Venti-Mask 40% Respiratory Therapy Consult ONCE 04/11/23 21:24 Respiratory Therapy Assessment DAILY 04/11/23 21:42 BiPap/CPAP STAT Assessment/Plan (1) Acute respiratory failure with hypoxia Current Visit: Yes Status: Acute Assessment & Plan: Due to LLL PNA: Covid and flud are both negative, mono screen was positive. Rocephin and Azithromycin started. Cultures obtained. O2 protocol to keep O2 sat > 92%. RT on case, albuterol updraft scheduled and prn. Lasix for CHF component. Wean down and off O2 when able Code(s): J96.01 - ACUTE RESPIRATORY FAILURE WITH HYPOXIA (2) LLL pneumonia Current Visit: Yes Status: Acute Assessment & Plan: As above - Rocephin and Azithromycin started, cultures obtained Code(s): J18.9 - PNEUMONIA, UNSPECIFIED ORGANISM (3) Altered mental status Current Visit: Yes Status: Acute Assessment & Plan: Acute metabolic encephalopathy due to infectious cause and hypoxia. Treating PNA, and O2 protocol. Monitor progress. CT head senile changes, no acute finding. UA not remarkable Code(s): R41.82 - ALTERED MENTAL STATUS, UNSPECIFIED (4) Abdominal pain Current Visit: No Status: Acute Assessment & Plan: He was found to have abdominal distention, NGT placed and 1 L suctioned from stomach. Now on intermittent suction. CT abd pending. May need surgery input if not better in AM. NPO status due to this Code(s): R10.9 - UNSPECIFIED ABDOMINAL PAIN (5) Hyperkalemia Current Visit: Yes Status: Acute Assessment & Plan: K was 5.4 -likely due to HELENE. Starting IVF, and this should help. Will repeat K in AM Code(s): E87.5 - HYPERKALEMIA (6) Acute on chronic renal failure Current Visit: No Status: Acute Assessment & Plan: Cr 2.77, BUN 34. Has underlying CKD due to DM and HTN, but am unsure of his baseline. IVF started for NPO status. Dose all meds accordingly. Avoid IV contrast, NSAIDs and hypotension. Will monitor Cr trend Code(s): N17.9 - ACUTE KIDNEY FAILURE, UNSPECIFIED; N18.9 - CHRONIC KIDNEY DISEASE, UNSPECIFIED (7) CHF (congestive heart failure) Current Visit: Yes Status: Acute Assessment & Plan: BNP 844. Clinically SOB, and hypoxic. But could be due to PNA. On Lasix at home. I will continue Lasix 40mg IV daily here Code(s): I50.9 - HEART FAILURE, UNSPECIFIED (8) Afib Current Visit: Yes Status: Acute Assessment & Plan: Chronic, HR controlled. I am holding Eliquis tonight due to abdominal distention and NPO status. Heparin for DVT prophylaxis. If abd is acute, may need surgery, so would hold Eliquis anyways. Once we cleared him, can resume Eliquis for AFib Code(s): I48.91 - UNSPECIFIED ATRIAL FIBRILLATION (9) Mononucleosis Current Visit: Yes Status: Acute Assessment & Plan: Supportive care Code(s): B27.90 - INFECTIOUS MONONUCLEOSIS, UNSPECIFIED WITHOUT COMPLICATION (10) Leukocytosis Current Visit: No Status: Acute Assessment & Plan: WBC 27.6. Likely due tp PNA. Treating this, and monitoring WBC trend. Lactic acid was not elevated Code(s): D72.829 - ELEVATED WHITE BLOOD CELL COUNT, UNSPECIFIED Telemedicine Encounter - Telemedicine Encounter Telemedicine Encounter: The entirety of this encounter was performed via Telemedicine" Pt was unable to give me verbal consent for this visit
[2023-04-11] MEDS ORDERED: Dextrose 5% -0.45 NaCl 1000 ML 1,000 ML IV SCH (22:00)
[2023-04-11] MEDS ORDERED: LUMIGAN 0.01% 2.5 ML OP SCH (22:00)
[2023-04-11] MEDS: HEPARIN 5000 UNITS/0.5 ML (HIGH RISK MED) SQ SCH (23:34)
[2023-04-12] MEDS: PROVENTIL 2.5 MG/3 ML NEB IH SCH ×4 (01:12→18:48)
[2023-04-12 02:42] LABS: Hematocrit 32.9 % (42-50); Hemoglobin 10.1 g/dL (12.5-18.0); Mean Cell Volume 89.2 fL (78-100); Mean Corpuscular Hemoglobin 27.4 pg (26-32); Mean Corpuscular Hgb Concent. 30.7 g/dL (32-36); Mean Platelet Volume 12.2 fL (7.5-11.0); Platelet Count 170 x10^3/uL (150-450); Red Blood Count 3.69 x10^6/uL (4.1-5.6); Red Cell Distribution Width 16.3 % (11.5-14.0)
[2023-04-12 02:54] LABS: ALBUMIN 3.4 g/dL (3.5-5.0); ANION GAP 16.1 MEQ/L (5-15); BILIRUBIN,TOTAL 0.5 mg/dL (0.2-1.3); Calcium 8.1 mg/dL (8.4-10.2); Creatinine 1 2.69 mg/dL (0.66-1.25); EST GLOMERULAR FILTRATION RATE 22.9 ML/MIN; Potassium 5.7 mmol/L (3.5-5.1); Total Protein 6.5 g/dL (6.3-8.2)
[2023-04-12] MEDS: HUMALOG SQ PRN ×4 (04:16→16:04)
[2023-04-12 04:18] LABS: Lymphocytes 1 % (24-44); Monocyte 1 % (0.0-12.0); Neutrophils 98 % (36.-66.); Total Cells Counted 100
[2023-04-12 04:19] LABS: ANISOCYTOSIS 1+; Hypochromia 1+; Platelet Estimate NORMAL (NORMAL)
--- NOTE | 2023-04-12 05:28 | PCM.NOTE ---
Date and Time: 04/12/23 0525 Subjective Assessment: is a 83 year old male with history of AFib, COPD, CHF, HTN, CAD s/p stents, HLP, DMII, GERD presented with AMS and SOB with hypoxia on RA. He apparently had a bronchoscopy done at an outside hospital today as a follow-up to an abnormal chest xray. Procedure was unremarkable, pt sent home. But later in the late afternoon, he became lethargic, altered and SOB. EMS was called and when they arrived, he was minimally responsive and O2 sat was found to be in the 80s on RA. Lasix, Duoneb and O2 was given, and he was brought into ER here. In ER, O2 sat was high 80s on RA, and improved to 100% on a non-rebreather O2. CRX here shows LLL infiltrate, and labs revealed a WBC of 26. He is then admitt ed for LLL PNA and acute respiratory failure. Incidentally, his abdomen was found to be distended, so NGT was placed and a L of gastric content - dark colored - was suctioned. He is now on intermittent suction with NGT in place. Abd is soft on exam with tympanic BS. He was placed on 5Ls NC O2, remains lethargic, still confused. Family not at bedside. 04/12/23: Met with patient and family bedside. Patient still somewhat confused, but improved since admission. Concern for aspiration pneumonia. Will change antibiotics to Vanc/Cefepime today. Potassium levels elevated. Troponin levels are elevated. EKG showing NS, borderline ST depression RBBB, LPFB, and prolonged MT interval. NG placed with 1200mls out overnight. Discussed transfer with family for a higher level of care. They wish to keep patient here at this time. Will re-evaluate lab work at noon for final decision. - Review of Systems Constitutional: Fatigue, Lethargy, Weakness Eyes: No Symptoms Ears, Nose, & Throat: No Symptoms Respiratory: Cough, Short Of Breath, Wheezing Cardiac: No Symptoms Abdominal/Gastrointestinal: Other (abdominal distention) Genitourinary Symptoms: No Symptoms Musculoskeletal: Back Pain Skin: No Symptoms Neurological: Lethargy Psychological: Other (confusion) Endocrine: No Symptoms Hematologic/Lymphatic: No Symptoms Immunological/Allergic: No Symptoms Objective Exam General Appearance: lethargy Neurologic Exam: disoriented, confusion Skin Exam: pale Eye Exam: PERRL Ears, Nose, Throat Exam: dry mucous membranes Neck Exam: normal inspection Respiratory Exam: crackles/rales, wheezing Cardiovascular Exam: regular rate/rhythm, normal heart sounds Gastrointestinal/Abdomen Exam: normal bowel sounds, distention Extremity Exam: normal inspection Back Exam: normal inspection OBJECTIVE DATA Vital Signs: Vital Signs - 24 hr Temp Pulse Resp BP BP Pulse Ox 04/12/23 05:00 98.6 F 83 15 130/54 95 04/12/23 04:00 99.1 F 81 13 115/44 95 04/12/23 03:00 99.1 F 89 16 110/52 96 04/12/23 02:32 99.1 F 92 H 18 122/57 04/12/23 01:32 98.8 F 91 H 18 114/45 04/12/23 01:12 83 16 97 04/11/23 23:54 97 H 04/11/23 23:28 99.5 F 97 H 16 120/52 93 L 04/11/23 22:56 96 H 20 92 L 04/11/23 22:55 99.7 F 98 H 19 125/66 99 04/11/23 21:50 138/54 04/11/23 21:40 96 H 15 138/51 97 04/11/23 21:30 98 H 16 114/87 97 04/11/23 21:25 97 H 18 99 04/11/23 21:20 99 H 17 154/60 97 04/11/23 21:10 93 H 15 156/64 100 04/11/23 21:04 98 04/11/23 21:03 97 H 04/11/23 21:00 96 H 21 145/57 100 04/11/23 20:50 93 H 16 113/44 100 04/11/23 20:40 87 15 103/46 100 04/11/23 20:30 88 15 112/50 100 04/11/23 20:20 92 H 15 104/45 100 04/11/23 20:10 95 H 15 95/45 99 04/11/23 20:00 100.8 F 101 H 15 97/51 100 04/11/23 19:50 99 H 16 115/52 100 04/11/23 19:40 99 H 15 125/54 100 04/11/23 19:30 102 H 15 133/55 99 04/11/23 19:20 105 H 18 120/57 100 04/11/23 18:49 109 H 19 134/62 99 04/11/23 18:41 105 H 18 100 04/11/23 18:27 110 H 24 95 04/11/23 18:25 99.6 F 112 H 24 129/64 86 L Oxygen-Last 24 hours O2 Percentage 3 Liters = 32% Pain Assessment - Last Documented Pain Intensity 0 Intake and Output: Intake & Output 04/09/23 04/10/23 04/11/23 04/12/23 11:59 11:59 11:59 11:59 Intake Total 800 Output Total 1550 Balance -750 Weight 90.7 kg Lab Results: Lab Results-Last 24 Hours 04/11/23 04/11/23 04/11/23 Range/Units 18:23 18:35 18:35 WBC 27.6 H* (4.0-10.5) x10^3/uL RBC 4.11 (4.1-5.6) x10^6/uL Hgb 11.1 L (12.5-18.0) g/dL Hct 36.1 L (42-50) % MCV 87.8 (78-100) fL MCH 27.0 (26-32) pg MCHC 30.7 L (32-36) g/dL RDW 16.3 H (11.5-14.0) % Plt Count 221 (150-450) x10^3/uL MPV 12.7 H (7.5-11.0) fL Gran % 91.6 H (36.0-66.0) % Immature Gran % (Auto) 0.8 H (0.00-0.4) % Nucleat RBC Rel Count 0.0 (0.00-0.1) % Eos # (Auto) 0.09 (0-0.5) x10^3/uL Immature Gran # (Auto) 0.23 H (0.00-0.03) x10^3u/L Absolute Lymphs (auto) 1.01 (1.0-4.6) x10^3/uL Absolute Monos (auto) 0.84 (0.0-1.3) x10^3/uL Absolute Nucleated RBC 0.00 (0.00-0.01) x10^3u/L Lymphocytes % 3.7 L (24.0-44.0) % Monocytes % 3.0 (0.0-12.0) % Eosinophils % 0.3 (0.00-5.0) % Basophils % 0.6 (0.0-0.4) % Absolute Granulocytes 25.28 H (1.4-6.9) x10^3/uL Segmented Neutrophils 92 H (36.-66.) % Lymphocytes (Manual) 5 L (24-44) % Monocytes (Manual) 1 (0.0-12.0) % Eosinophils (Manual) 1 (0.00-3.0) % Basophils (Manual) 1 (0.0-1.0) % Basophils # 0.17 (0-0.4) x10^3/uL Hypochromia 1+ Platelet Estimate NORMAL (NORMAL) RBC Morphology ABNORMAL Anisocytosis 1+ Stomatocytes 1+ Puncture Site RIGHT BRACHIAL pCO2 42 (35-45) mmHg pO2 49 L* (75-100) mmHg Base Excess -0.4 (-2.0-2.0) O2 Saturation 83.4 L (94-100) g/dF ABG pH 7.38 (7.35-7.45) ABG HCO3 24.8 (22-28) ABG O2 Sat (Measured) 84.3 L (95-100) % Devin Test NOT APPLICABLE A-a Gradient 212 a/A Ratio 0.19 Hemoglobin 11.4 Carboxyhemoglobin 1.1 (0.0-6.9) % THgb Methemoglobin 0.0 L (1.4-1.5) % Potassium 5.4 H (3.5-5.1) Temperature 37.0 C POC O2 Flow Rate 44 % Sodium (137-145) mmol/L Chloride (98-107) mmol/L Carbon Dioxide (22-30) mmol/L Anion Gap (5-15) MEQ/L BUN (9-20) mg/dL Creatinine (0.66-1.25) mg/dL Estimated GFR ML/MIN Glucose (74-106) mg/dL POC Glucometer (74 to 106) mg/dL Lactic Acid 0.8 (0.4-2.0) Calcium (8.4-10.2) mg/dL Total Bilirubin (0.2-1.3) mg/dL AST (17-59) U/L ALT (0-50) U/L Alkaline Phosphatase (38-126) U/L Ammonia (9-30) umol/L Troponin I (0.000-0.034) ng/mL NT-Pro-B Natriuret Pep (<300) pg/mL Serum Total Protein (6.3-8.2) g/dL Albumin (3.5-5.0) g/dL Amylase (30-110) U/L Lipase (23-300) U/L Urine Color Yellow (Yellow) Urine Appearance Clear (Clear) Urine pH 7.0 (4.6-8.0) Ur Specific [place] 1.020 (1.005-1.030) Urine Protein 100 A (Negative) Urine Glucose (UA) 500 A (Negative) mg/dL Urine Ketones Trace A (Negative) Urine Blood Negative (Negative) Urine Nitrite Negative (Negative) Urine Bilirubin Negative (Negative) Urine Urobilinogen 0.2 (0.2) mg/dL Ur Leukocyte Esterase Negative (Negative) U Hyaline Cast (Auto) 3-5 A (0-2) /LPF Urine Microscopic RBC 0-2 (0-5) /HPF Urine Microscopic WBC 0-2 (0-5) /HPF Ur Epithelial Cells None Seen (None Seen) /HPF Urine Bacteria None Seen (None Seen) /HPF Urine Culture Reflexed ORDERED SEPARATELY (NO) Monoscreen (NEGATIVE) Influenza Type A Ag (NEGATIVE) Influenza Type B Ag (NEGATIVE) RSV (PCR) (NEGATIVE) SARS-CoV-2 (PCR) (NEGATIVE) Group A Strep Antibody (NEGATIVE) 04/11/23 04/11/23 04/11/23 Range/Units 18:35 18:35 18:35 WBC (4.0-10.5) x10^3/uL RBC (4.1-5.6) x10^6/uL Hgb (12.5-18.0) g/dL Hct (42-50) % MCV (78-100) fL MCH (26-32) pg MCHC (32-36) g/dL RDW (11.5-14.0) % Plt Count (150-450) x10^3/uL MPV (7.5-11.0) fL Gran % (36.0-66.0) % Immature Gran % (Auto) (0.00-0.4) % Nucleat RBC Rel Count (0.00-0.1) % Eos # (Auto) (0-0.5) x10^3/uL Immature Gran # (Auto) (0.00-0.03) x10^3u/L Absolute Lymphs (auto) (1.0-4.6) x10^3/uL Absolute Monos (auto) (0.0-1.3) x10^3/uL Absolute Nucleated RBC (0.00-0.01) x10^3u/L Lymphocytes % (24.0-44.0) % Monocytes % (0.0-12.0) % Eosinophils % (0.00-5.0) % Basophils % (0.0-0.4) % Absolute Granulocytes (1.4-6.9) x10^3/uL Segmented Neutrophils (36.-66.) % Lymphocytes (Manual) (24-44) % Monocytes (Manual) (0.0-12.0) % Eosinophils (Manual) (0.00-3.0) % Basophils (Manual) (0.0-1.0) % Basophils # (0-0.4) x10^3/uL Hypochromia Platelet Estimate (NORMAL) RBC Morphology Anisocytosis Stomatocytes Puncture Site pCO2 (35-45) mmHg pO2 (75-100) mmHg Base Excess (-2.0-2.0) O2 Saturation (94-100) g/dF ABG pH (7.35-7.45) ABG HCO3 (22-28) ABG O2 Sat (Measured) (95-100) % Devin Test A-a Gradient a/A Ratio Hemoglobin Carboxyhemoglobin (0.0-6.9) % THgb Methemoglobin (1.4-1.5) % Potassium 5.4 H (3.5-5.1) Temperature C POC O2 Flow Rate % Sodium 138 (137-145) mmol/L Chloride 106 (98-107) mmol/L Carbon Dioxide 27 (22-30) mmol/L Anion Gap 9.9 (5-15) MEQ/L BUN 34 H (9-20) mg/dL Creatinine 2.77 H (0.66-1.25) mg/dL Estimated GFR 22.1 ML/MIN Glucose 160 H (74-106) mg/dL POC Glucometer (74 to 106) mg/dL Lactic Acid (0.4-2.0) Calcium 9.2 (8.4-10.2) mg/dL Total Bilirubin 0.70 (0.2-1.3) mg/dL AST 35 (17-59) U/L ALT 20 (0-50) U/L Alkaline Phosphatase 65 (38-126) U/L Ammonia (9-30) umol/L Troponin I < 0.012 (0.000-0.034) ng/mL NT-Pro-B Natriuret Pep 844 (<300) pg/mL Serum Total Protein 7.5 (6.3-8.2) g/dL Albumin 4.0 (3.5-5.0) g/dL Amylase 91 (30-110) U/L Lipase 128 (23-300) U/L Urine Color (Yellow) Urine Appearance (Clear) Urine pH (4.6-8.0) Ur Specific [place] (1.005-1.030) Urine Protein (Negative) Urine Glucose (UA) (Negative) mg/dL Urine Ketones (Negative) Urine Blood (Negative) Urine Nitrite (Negative) Urine Bilirubin (Negative) Urine Urobilinogen (0.2) mg/dL Ur Leukocyte Esterase (Negative) U Hyaline Cast (Auto) (0-2) /LPF Urine Microscopic RBC (0-5) /HPF Urine Microscopic WBC (0-5) /HPF Ur Epithelial Cells (None Seen) /HPF Urine Bacteria (None Seen) /HPF Urine Culture Reflexed (NO) Monoscreen (NEGATIVE) Influenza Type A Ag (NEGATIVE) Influenza Type B Ag (NEGATIVE) RSV (PCR) (NEGATIVE) SARS-CoV-2 (PCR) (NEGATIVE) Group A Strep Antibody (NEGATIVE) 04/11/23 04/11/23 04/11/23 Range/Units 18:35 18:35 18:38 WBC (4.0-10.5) x10^3/uL RBC (4.1-5.6) x10^6/uL Hgb (12.5-18.0) g/dL Hct (42-50) % MCV (78-100) fL MCH (26-32) pg MCHC (32-36) g/dL RDW (11.5-14.0) % Plt Count (150-450) x10^3/uL MPV (7.5-11.0) fL Gran % (36.0-66.0) % Immature Gran % (Auto) (0.00-0.4) % Nucleat RBC Rel Count (0.00-0.1) % Eos # (Auto) (0-0.5) x10^3/uL Immature Gran # (Auto) (0.00-0.03) x10^3u/L Absolute Lymphs (auto) (1.0-4.6) x10^3/uL Absolute Monos (auto) (0.0-1.3) x10^3/uL Absolute Nucleated RBC (0.00-0.01) x10^3u/L Lymphocytes % (24.0-44.0) % Monocytes % (0.0-12.0) % Eosinophils % (0.00-5.0) % Basophils % (0.0-0.4) % Absolute Granulocytes (1.4-6.9) x10^3/uL Segmented Neutrophils (36.-66.) % Lymphocytes (Manual) (24-44) % Monocytes (Manual) (0.0-12.0) % Eosinophils (Manual) (0.00-3.0) % Basophils (Manual) (0.0-1.0) % Basophils # (0-0.4) x10^3/uL Hypochromia Platelet Estimate (NORMAL) RBC Morphology Anisocytosis Stomatocytes Puncture Site pCO2 (35-45) mmHg pO2 (75-100) mmHg Base Excess (-2.0-2.0) O2 Saturation (94-100) g/dF ABG pH (7.35-7.45) ABG HCO3 (22-28) ABG O2 Sat (Measured) (95-100) % Devin Test A-a Gradient a/A Ratio Hemoglobin Carboxyhemoglobin (0.0-6.9) % THgb Methemoglobin (1.4-1.5) % Potassium (3.5-5.1) Temperature C POC O2 Flow Rate % Sodium (137-145) mmol/L Chloride (98-107) mmol/L Carbon Dioxide (22-30) mmol/L Anion Gap (5-15) MEQ/L BUN (9-20) mg/dL Creatinine (0.66-1.25) mg/dL Estimated GFR ML/MIN Glucose (74-106) mg/dL POC Glucometer 157 H (74 to 106) mg/dL Lactic Acid (0.4-2.0) Calcium (8.4-10.2) mg/dL Total Bilirubin (0.2-1.3) mg/dL AST (17-59) U/L ALT (0-50) U/L Alkaline Phosphatase (38-126) U/L Ammonia < 9 L (9-30) umol/L Troponin I (0.000-0.034) ng/mL NT-Pro-B Natriuret Pep (<300) pg/mL Serum Total Protein (6.3-8.2) g/dL Albumin (3.5-5.0) g/dL Amylase (30-110) U/L Lipase (23-300) U/L Urine Color (Yellow) Urine Appearance (Clear) Urine pH (4.6-8.0) Ur Specific [place] (1.005-1.030) Urine Protein (Negative) Urine Glucose (UA) (Negative) mg/dL Urine Ketones (Negative) Urine Blood (Negative) Urine Nitrite (Negative) Urine Bilirubin (Negative) Urine Urobilinogen (0.2) mg/dL Ur Leukocyte Esterase (Negative) U Hyaline Cast (Auto) (0-2) /LPF Urine Microscopic RBC (0-5) /HPF Urine Microscopic WBC (0-5) /HPF Ur Epithelial Cells (None Seen) /HPF Urine Bacteria (None Seen) /HPF Urine Culture Reflexed (NO) Monoscreen POSITIVE (NEGATIVE) Influenza Type A Ag (NEGATIVE) Influenza Type B Ag (NEGATIVE) RSV (PCR) (NEGATIVE) SARS-CoV-2 (PCR) (NEGATIVE) Group A Strep Antibody (NEGATIVE) 04/11/23 04/11/23 04/11/23 Range/Units 18:43 18:43 22:50 WBC (4.0-10.5) x10^3/uL RBC (4.1-5.6) x10^6/uL Hgb (12.5-18.0) g/dL Hct (42-50) % MCV (78-100) fL MCH (26-32) pg MCHC (32-36) g/dL RDW (11.5-14.0) % Plt Count (150-450) x10^3/uL MPV (7.5-11.0) fL Gran % (36.0-66.0) % Immature Gran % (Auto) (0.00-0.4) % Nucleat RBC Rel Count (0.00-0.1) % Eos # (Auto) (0-0.5) x10^3/uL Immature Gran # (Auto) (0.00-0.03) x10^3u/L Absolute Lymphs (auto) (1.0-4.6) x10^3/uL Absolute Monos (auto) (0.0-1.3) x10^3/uL Absolute Nucleated RBC (0.00-0.01) x10^3u/L Lymphocytes % (24.0-44.0) % Monocytes % (0.0-12.0) % Eosinophils % (0.00-5.0) % Basophils % (0.0-0.4) % Absolute Granulocytes (1.4-6.9) x10^3/uL Segmented Neutrophils (36.-66.) % Lymphocytes (Manual) (24-44) % Monocytes (Manual) (0.0-12.0) % Eosinophils (Manual) (0.00-3.0) % Basophils (Manual) (0.0-1.0) % Basophils # (0-0.4) x10^3/uL Hypochromia Platelet Estimate (NORMAL) RBC Morphology Anisocytosis Stomatocytes Puncture Site pCO2 (35-45) mmHg pO2 (75-100) mmHg Base Excess (-2.0-2.0) O2 Saturation (94-100) g/dF ABG pH (7.35-7.45) ABG HCO3 (22-28) ABG O2 Sat (Measured) (95-100) % Devin Test A-a Gradient a/A Ratio Hemoglobin Carboxyhemoglobin (0.0-6.9) % THgb Methemoglobin (1.4-1.5) % Potassium (3.5-5.1) Temperature C POC O2 Flow Rate % Sodium (137-145) mmol/L Chloride (98-107) mmol/L Carbon Dioxide (22-30) mmol/L Anion Gap (5-15) MEQ/L BUN (9-20) mg/dL Creatinine (0.66-1.25) mg/dL Estimated GFR ML/MIN Glucose (74-106) mg/dL POC Glucometer (74 to 106) mg/dL Lactic Acid (0.4-2.0) Calcium (8.4-10.2) mg/dL Total Bilirubin (0.2-1.3) mg/dL AST (17-59) U/L ALT (0-50) U/L Alkaline Phosphatase (38-126) U/L Ammonia (9-30) umol/L Troponin I < 0.012 (0.000-0.034) ng/mL NT-Pro-B Natriuret Pep (<300) pg/mL Serum Total Protein (6.3-8.2) g/dL Albumin (3.5-5.0) g/dL Amylase (30-110) U/L Lipase (23-300) U/L Urine Color (Yellow) Urine Appearance (Clear) Urine pH (4.6-8.0) Ur Specific [place] (1.005-1.030) Urine Protein (Negative) Urine Glucose (UA) (Negative) mg/dL Urine Ketones (Negative) Urine Blood (Negative) Urine Nitrite (Negative) Urine Bilirubin (Negative) Urine Urobilinogen (0.2) mg/dL Ur Leukocyte Esterase (Negative) U Hyaline Cast (Auto) (0-2) /LPF Urine Microscopic RBC (0-5) /HPF Urine Microscopic WBC (0-5) /HPF Ur Epithelial Cells (None Seen) /HPF Urine Bacteria (None Seen) /HPF Urine Culture Reflexed (NO) Monoscreen (NEGATIVE) Influenza Type A Ag NEGATIVE (NEGATIVE) Influenza Type B Ag NEGATIVE (NEGATIVE) RSV (PCR) NEGATIVE (NEGATIVE) SARS-CoV-2 (PCR) NEGATIVE (NEGATIVE) Group A Strep Antibody NOT DETECTED (NEGATIVE) 04/11/23 04/12/23 04/12/23 Range/Units 22:50 02:35 02:35 WBC 25.0 H* (4.0-10.5) x10^3/uL RBC 3.69 L (4.1-5.6) x10^6/uL Hgb 10.1 L (12.5-18.0) g/dL Hct 32.9 L (42-50) % MCV 89.2 (78-100) fL MCH 27.4 (26-32) pg MCHC 30.7 L (32-36) g/dL RDW 16.3 H (11.5-14.0) % Plt Count 170 (150-450) x10^3/uL MPV 12.2 H (7.5-11.0) fL Gran % (36.0-66.0) % Immature Gran % (Auto) (0.00-0.4) % Nucleat RBC Rel Count (0.00-0.1) % Eos # (Auto) (0-0.5) x10^3/uL Immature Gran # (Auto) (0.00-0.03) x10^3u/L Absolute Lymphs (auto) (1.0-4.6) x10^3/uL Absolute Monos (auto) (0.0-1.3) x10^3/uL Absolute Nucleated RBC 0.00 (0.00-0.01) x10^3u/L Lymphocytes % (24.0-44.0) % Monocytes % (0.0-12.0) % Eosinophils % (0.00-5.0) % Basophils % (0.0-0.4) % Absolute Granulocytes (1.4-6.9) x10^3/uL Segmented Neutrophils 98 H (36.-66.) % Lymphocytes (Manual) 1 L (24-44) % Monocytes (Manual) 1 (0.0-12.0) % Eosinophils (Manual) (0.00-3.0) % Basophils (Manual) (0.0-1.0) % Basophils # (0-0.4) x10^3/uL Hypochromia 1+ Platelet Estimate NORMAL (NORMAL) RBC Morphology ABNORMAL Anisocytosis 1+ Stomatocytes Puncture Site pCO2 (35-45) mmHg pO2 (75-100) mmHg Base Excess (-2.0-2.0) O2 Saturation (94-100) g/dF ABG pH (7.35-7.45) ABG HCO3 (22-28) ABG O2 Sat (Measured) (95-100) % Devin Test A-a Gradient a/A Ratio Hemoglobin Carboxyhemoglobin (0.0-6.9) % THgb Methemoglobin (1.4-1.5) % Potassium (3.5-5.1) Temperature C POC O2 Flow Rate % Sodium (137-145) mmol/L Chloride (98-107) mmol/L Carbon Dioxide (22-30) mmol/L Anion Gap (5-15) MEQ/L BUN (9-20) mg/dL Creatinine (0.66-1.25) mg/dL Estimated GFR ML/MIN Glucose (74-106) mg/dL POC Glucometer 244 H (74 to 106) mg/dL Lactic Acid (0.4-2.0) Calcium (8.4-10.2) mg/dL Total Bilirubin (0.2-1.3) mg/dL AST (17-59) U/L ALT (0-50) U/L Alkaline Phosphatase (38-126) U/L Ammonia (9-30) umol/L Troponin I 0.142 H* (0.000-0.034) ng/mL NT-Pro-B Natriuret Pep (<300) pg/mL Serum Total Protein (6.3-8.2) g/dL Albumin (3.5-5.0) g/dL Amylase (30-110) U/L Lipase (23-300) U/L Urine Color (Yellow) Urine Appearance (Clear) Urine pH (4.6-8.0) Ur Specific [place] (1.005-1.030) Urine Protein (Negative) Urine Glucose (UA) (Negative) mg/dL Urine Ketones (Negative) Urine Blood (Negative) Urine Nitrite (Negative) Urine Bilirubin (Negative) Urine Urobilinogen (0.2) mg/dL Ur Leukocyte Esterase (Negative) U Hyaline Cast (Auto) (0-2) /LPF Urine Microscopic RBC (0-5) /HPF Urine Microscopic WBC (0-5) /HPF Ur Epithelial Cells (None Seen) /HPF Urine Bacteria (None Seen) /HPF Urine Culture Reflexed (NO) Monoscreen (NEGATIVE) Influenza Type A Ag (NEGATIVE) Influenza Type B Ag (NEGATIVE) RSV (PCR) (NEGATIVE) SARS-CoV-2 (PCR) (NEGATIVE) Group A Strep Antibody (NEGATIVE) 04/12/23 Range/Units 02:35 WBC (4.0-10.5) x10^3/uL RBC (4.1-5.6) x10^6/uL Hgb (12.5-18.0) g/dL Hct (42-50) % MCV (78-100) fL MCH (26-32) pg MCHC (32-36) g/dL RDW (11.5-14.0) % Plt Count (150-450) x10^3/uL MPV (7.5-11.0) fL Gran % (36.0-66.0) % Immature Gran % (Auto) (0.00-0.4) % Nucleat RBC Rel Count (0.00-0.1) % Eos # (Auto) (0-0.5) x10^3/uL Immature Gran # (Auto) (0.00-0.03) x10^3u/L Absolute Lymphs (auto) (1.0-4.6) x10^3/uL Absolute Monos (auto) (0.0-1.3) x10^3/uL Absolute Nucleated RBC (0.00-0.01) x10^3u/L Lymphocytes % (24.0-44.0) % Monocytes % (0.0-12.0) % Eosinophils % (0.00-5.0) % Basophils % (0.0-0.4) % Absolute Granulocytes (1.4-6.9) x10^3/uL Segmented Neutrophils (36.-66.) % Lymphocytes (Manual) (24-44) % Monocytes (Manual) (0.0-12.0) % Eosinophils (Manual) (0.00-3.0) % Basophils (Manual) (0.0-1.0) % Basophils # (0-0.4) x10^3/uL Hypochromia Platelet Estimate (NORMAL) RBC Morphology Anisocytosis Stomatocytes Puncture Site pCO2 (35-45) mmHg pO2 (75-100) mmHg Base Excess (-2.0-2.0) O2 Saturation (94-100) g/dF ABG pH (7.35-7.45) ABG HCO3 (22-28) ABG O2 Sat (Measured) (95-100) % Devin Test A-a Gradient a/A Ratio Hemoglobin Carboxyhemoglobin (0.0-6.9) % THgb Methemoglobin (1.4-1.5) % Potassium 5.7 H (3.5-5.1) Temperature C POC O2 Flow Rate % Sodium 138 (137-145) mmol/L Chloride 109 H (98-107) mmol/L Carbon Dioxide 18 L (22-30) mmol/L Anion Gap 16.1 H (5-15) MEQ/L BUN 38 H (9-20) mg/dL Creatinine 2.69 H (0.66-1.25) mg/dL Estimated GFR 22.9 ML/MIN Glucose 345 H (74-106) mg/dL POC Glucometer (74 to 106) mg/dL Lactic Acid (0.4-2.0) Calcium 8.1 L (8.4-10.2) mg/dL Total Bilirubin 0.50 (0.2-1.3) mg/dL AST 81 H (17-59) U/L ALT 28 (0-50) U/L Alkaline Phosphatase 57 (38-126) U/L Ammonia (9-30) umol/L Troponin I (0.000-0.034) ng/mL NT-Pro-B Natriuret Pep (<300) pg/mL Serum Total Protein 6.5 (6.3-8.2) g/dL Albumin 3.4 L (3.5-5.0) g/dL Amylase (30-110) U/L Lipase (23-300) U/L Urine Color (Yellow) Urine Appearance (Clear) Urine pH (4.6-8.0) Ur Specific [place] (1.005-1.030) Urine Protein (Negative) Urine Glucose (UA) (Negative) mg/dL Urine Ketones (Negative) Urine Blood (Negative) Urine Nitrite (Negative) Urine Bilirubin (Negative) Urine Urobilinogen (0.2) mg/dL Ur Leukocyte Esterase (Negative) U Hyaline Cast (Auto) (0-2) /LPF Urine Microscopic RBC (0-5) /HPF Urine Microscopic WBC (0-5) /HPF Ur Epithelial Cells (None Seen) /HPF Urine Bacteria (None Seen) /HPF Urine Culture Reflexed (NO) Monoscreen (NEGATIVE) Influenza Type A Ag (NEGATIVE) Influenza Type B Ag (NEGATIVE) RSV (PCR) (NEGATIVE) SARS-CoV-2 (PCR) (NEGATIVE) Group A Strep Antibody (NEGATIVE) Radiology Exams: Radiology Procedures Category Date Time Status ABDOMEN AND PELVIS W/0 CONTRAS [CT] Stat Exams 04/11/23 18:36 Taken CHEST WITHOUT CONTRAST [CT] Stat Exams 04/11/23 18:53 Taken HEAD WITHOUT CONTRAST [CT] Stat Exams 04/11/23 18:36 Taken Assessment/Plan (1) Acute respiratory failure with hypoxia Current Visit: Yes Status: Acute Assessment & Plan: (1) Acute respiratory failure with hypoxia Current Visit: Yes Status: Acute Assessment & Plan: Due to LLL PNA: Covid and flud are both negative, mono screen was positive. Rocephin and Azithromycin started. Cultures obtained. O2 protocol to keep O2 sat > 92%. RT on case, albuterol updraft scheduled and prn. Lasix for CHF component. Wean down and off O2 when able Code(s): J96.01 - ACUTE RESPIRATORY FAILURE WITH HYPOXIA (2) LLL pneumonia Current Visit: Yes Status: Acute Assessment & Plan: As above - Rocephin and Azithromycin started, cultures obtained 04/12: -Antibiotics changed to vanc/cefepime Code(s): J18.9 - PNEUMONIA, UNSPECIFIED ORGANISM #elevated troponins -EKG as stated above, trops uptrending -Will consult cards, discussed with family transfer to higher level of care, they would like to remain at [facility] for now (3) Altered mental status Current Visit: Yes Status: Acute Assessment & Plan: Acute metabolic encephalopathy due to infectious cause and hypoxia. Treating PNA, and O2 protocol. Monitor progress. CT head senile changes, no acute finding. UA not remarkable 04/12: -Improved although still confused, will continue to treat pna Code(s): R41.82 - ALTERED MENTAL STATUS, UNSPECIFIED (4) Abdominal pain Current Visit: No Status: Acute Assessment & Plan: He was found to have abdominal distention, NGT placed and 1 L suctioned from stomach. Now on intermittent suction. CT abd pending. May need surgery input if not better in AM. NPO status due to this Code(s): R10.9 - UNSPECIFIED ABDOMINAL PAIN (5) Hyperkalemia Current Visit: Yes Status: Acute Assessment & Plan: K was 5.4 -likely due to HELENE. Starting IVF, and this should help. Will repeat K in AM 04/12: -remains hyperkalemic, blood glucose levels also elevated, will treat Blood glucose and redraw bmp at noon Code(s): E87.5 - HYPERKALEMIA (6) Acute on chronic renal failure Current Visit: No Status: Acute Assessment & Plan: Cr 2.77, BUN 34. Has underlying CKD due to DM and HTN, but am unsure of his baseline. IVF started for NPO status. Dose all meds accordingly. Avoid IV contrast, NSAIDs and hypotension. Will monitor Cr trend Code(s): N17.9 - ACUTE KIDNEY FAILURE, UNSPECIFIED; N18.9 - CHRONIC KIDNEY DISEASE, UNSPECIFIED (7) CHF (congestive heart failure) Current Visit: Yes Status: Acute Assessment & Plan: BNP 844. Clinically SOB, and hypoxic. But could be due to PNA. On Lasix at home. I will continue Lasix 40mg IV daily here Code(s): I50.9 - HEART FAILURE, UNSPECIFIED (8) Afib Current Visit: Yes Status: Acute Assessment & Plan: Chronic, HR controlled. I am holding Eliquis tonight due to abdominal distention and NPO status. Heparin for DVT prophylaxis. If abd is acute, may need surgery, so would hold Eliquis anyways. Once we cleared him, can resume Eliquis for AFib Code(s): I48.91 - UNSPECIFIED ATRIAL FIBRILLATION (9) Mononucleosis Current Visit: Yes Status: Acute Assessment & Plan: Supportive care Code(s): B27.90 - INFECTIOUS MONONUCLEOSIS, UNSPECIFIED WITHOUT COMPLICATION (10) Leukocytosis Current Visit: No Status: Acute Assessment & Plan: WBC 27.6. Likely due tp PNA. Treating this, and monitoring WBC trend. Lactic acid was not elevated Code(s): D72.829 - ELEVATED WHITE BLOOD CELL COUNT, UNSPECIFIED Code(s): J96.01 - ACUTE RESPIRATORY FAILURE WITH HYPOXIA (2) Afib Current Visit: Yes Status: Acute Code(s): I48.91 - UNSPECIFIED ATRIAL FIBRILLATION (3) Altered mental status Current Visit: Yes Status: Acute Code(s): R41.82 - ALTERED MENTAL STATUS, UNSPECIFIED (4) CHF (congestive heart failure) Current Visit: Yes Status: Acute Code(s): I50.9 - HEART FAILURE, UNSPECIFIED (5) Hyperkalemia Current Visit: Yes Status: Acute Code(s): E87.5 - HYPERKALEMIA (6) LLL pneumonia Current Visit: Yes Status: Acute Code(s): J18.9 - PNEUMONIA, UNSPECIFIED ORGANISM (7) Mononucleosis Current Visit: Yes Status: Acute Code(s): B27.90 - INFECTIOUS MONONUCLEOSIS, UNSPECIFIED WITHOUT COMPLICATION (8) Abdominal pain Current Visit: No Status: Acute Code(s): R10.9 - UNSPECIFIED ABDOMINAL PAIN (9) Acute on chronic renal failure Current Visit: No Status: Acute Code(s): N17.9 - ACUTE KIDNEY FAILURE, UNSPECIFIED; N18.9 - CHRONIC KIDNEY DISEASE, UNSPECIFIED (10) Leukocytosis Current Visit: No Status: Acute Code(s): D72.829 - ELEVATED WHITE BLOOD CELL COUNT, UNSPECIFIED (11) Elevated troponin Current Visit: Yes Status: Acute Code(s): R79.89 - OTHER SPECIFIED ABNORMAL FINDINGS OF BLOOD CHEMISTRY
[2023-04-12] MEDS: Sodium Chloride 0.9% 1000 ML 1,000 ML IV SCH (08:14)
--- NOTE | 2023-04-12 08:41 | XRAY ---
Indication: Altered mental status. Multiple contiguous axial images obtained through the head without contrast. Comparison: October 02, 2022 Again age-appropriate global atrophy, moderate periventricular degenerative micro-ischemia bilaterally, and remote lacunar infarct right external capsule. No acute intracranial hemorrhage, abnormal extra-axial fluid collection, or mass effect. Fourth ventricle is midline without hydrocephalus. Bony calvarium intact. Visualized paranasal sinuses and mastoid air cells are clear. New partially visualized NG tube. 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
--- NOTE | 2023-04-12 08:47 | XRAY ---
Indication: Hypoxia. Respiratory distress. Multiple contiguous axial images obtained through the chest without contrast. Comparison: February 12, 2023 Study slightly degraded by diffuse respiration artifact. New near complete consolidating left lower lobe airspace disease with also near complete opacification corresponding left lower lobe bronchus, favoring aspiration pneumonia. Posterior right lower lobe demonstrates new subsegmental atelectasis versus airspace disease. No large effusion. Remaining lungs again demonstrate pulmonary emphysema with a few small calcified granulomas. Heart borderline enlarged again with CABG. Aorta moderately arteriosclerotic without aneurysm. Stable chunky subcarinal and bilateral hilar calcified nodes. No pathologic mediastinal lymphadenopathy. New NG tube traverses chest with tip in stomach. Bony thorax intact again with osteopenia, mild multilevel degenerative changes throughout the spine, and minimal dextroscoliosis. CT abdomen/pelvis reported separately. Impression: 1. Respiration artifact. 2. New consolidating left lower lobe airspace disease with opacification left lower lobe bronchus. Rule out aspiration pneumonia. Also new posterior right lower lobe atelectasis versus airspace disease. 3. Again chronic findings including pulmonary emphysema, chronic bony findings, and old granulomatous disease.
--- NOTE | 2023-04-12 08:53 | XRAY ---
Indication: Abdomen distention. Multiple contiguous axial images obtained through the abdomen and pelvis without contrast. Comparison: November 09, 2022 CT chest reported separately. Study slightly degraded by respiration artifact throughout. Stable left chest metallic beam artifact. Stomach is now moderately fluid distended with NG tube tip. New mild diffuse fluid distended small bowel loops with fluid leveling, ileus versus enteritis. Normal colonic bowel gas. Into urinary bladder demonstrates new Gamble balloon catheter in situ. Stable small bilateral renal cysts, splenic calcified granulomas, and cholecystectomy. No free fluid/air. Remaining liver, pancreas, spleen, adrenal glands, kidneys, and ureters are unremarkable for noncontrast exam. Again extensive scattered arteriosclerotic calcifications including both main renal arteries. No AAA. Osseous structures intact again with osteopenia, mild/moderate multilevel generative spondylosis, and L5-S1 posterior fusion with grade 2 spondylolisthesis. Impression: 1. Respiration and beam artifact. 2. New fluid distended stomach and small bowel loops with fluid leveling. Rule out ileus versus gastroenteritis. 3. Again chronic findings including bilateral renal cysts, arteriosclerotic disease, chronic bony findings, and old granulomatous disease.
[2023-04-12] MEDS: Lasix 40 MG/4 ML IV SCH (09:31)
[2023-04-12] MEDS: HEPARIN 5000 UNITS/0.5 ML (HIGH RISK MED) SQ SCH ×2 (09:31→21:08)
[2023-04-12] MEDS: Imdur 30 MG PO SCH (09:32)
[2023-04-12] MEDS: HYDROCODONE-ACETAMIN 10-325 MG PO PRN (10:35)
[2023-04-12] MEDS ORDERED: PHARMACY DOSING REQUIRED: VANCOMYCIN IV STA (10:52)
[2023-04-12] MEDS: MAXIPIME 1 GM** 1 G in Dextrose 5%/Water IV Soln. 100ML PLUS BAG 100 ML IV SCH ×2 (11:12→21:08)
[2023-04-12] MEDS: VANCOMYCIN 1.25 GM/250 ML BAG 1.25 GM/250 ML PIGGYBACK IV SCH (11:59)
[2023-04-12 12:21] LABS: ANION GAP 9.9 MEQ/L (5-15); Calcium 8.5 mg/dL (8.4-10.2); Creatinine 1 2.57 mg/dL (0.66-1.25); EST GLOMERULAR FILTRATION RATE 24.2 ML/MIN
[2023-04-12] MEDS ORDERED: ASPIRIN RC ONE (14:45)
[2023-04-12] MEDS: LUMIGAN 0.01% 2.5 ML OP SCH (21:08)
[2023-04-12] MEDS ORDERED: ROCEPHIN 1 Gm-D5w 50 ml Bag** 1 G/50 ML IVPB IV SCH (22:00)
[2023-04-12] MEDS ORDERED: Zithromax 500 MG/ 250 ML NaCl Premix 500 MG/250 ML IVPB IV SCH (22:00)
[2023-04-13] MEDS: Sodium Chloride 0.9% 1000 ML 1,000 ML IV SCH ×2 (01:24→16:19)
[2023-04-13] MEDS: PROVENTIL 2.5 MG/3 ML NEB IH SCH ×4 (01:25→18:55)
[2023-04-13 05:26] LABS: Absolute Neutrophil Ct (ANC) 21.01 x10^3/uL (1.4-6.9); BASOPHIL % 0.2 % (0.0-0.4); Basophil (Absolute #) 0.05 x10^3/uL (0-0.4); Eosinophil % 0.3 % (0.00-5.0); Eosinophil (Absolute #) 0.06 x10^3/uL (0-0.5); Hematocrit 30.3 % (42-50); Hemoglobin 9.4 g/dL (12.5-18.0); IMMATURE GRAN # 0.27 x10^3u/L (0.00-0.03); IMMATURE GRAN % 1.2 % (0.00-0.4); Lymphocyte (Absolute #) 1.17 x10^3/uL (1.0-4.6); Mean Cell Volume 88.1 fL (78-100); Mean Corpuscular Hemoglobin 27.3 pg (26-32); Monocyte (Absolute #) 0.69 x10^3/uL (0.0-1.3); Neutrophil % 90.3 % (36.0-66.0); Platelet Count 181 x10^3/uL (150-450); Red Blood Count 3.44 x10^6/uL (4.1-5.6); Red Cell Distribution Width 16.9 % (11.5-14.0); White Blood Count 23.3 x10^3/uL (4.0-10.5)
--- NOTE | 2023-04-13 05:29 | PCM.DS ---
Discharge Summary Date of Admission: 04/11/23 21:33 Date of Discharge: 04/13/23 Admitting Physician: MIGUEL ROBLEDO DO Consults: Consults on Case 04/12/23 19:03 Consult Cardiology ROUTINE Primary Care Provider: JUMA LANE Allergies Allergies Iodinated Contrast Media [Iodinated Contrast Media - IV Dye] Allergy (Intermediate, Verified 04/11/23 18:41) unknown- hives morphine Allergy (Intermediate, Verified 04/11/23 18:41) confusion and combative hydromorphone HCl [From Dilaudid] Adverse Reaction (Intermediate, Verified 04/11/23 18:41) confusion and combative oxycodone HCl [From OxyContin] Adverse Reaction (Intermediate, Verified 04/11/23 18:41) confusion/ combative Hospital Summary - Hospital Course Hospital Course: is a 83 year old male with history of AFib, COPD, CHF, HTN, CAD s/p stents, HLP, DMII, GERD presented with AMS and SOB with hypoxia on RA. He apparently had a bronchoscopy done at an outside hospital today as a follow-up to an abnormal chest xray. Procedure was unremarkable, pt sent home. But later in the late afternoon, he became lethargic, altered and SOB. EMS was called and when they arrived, he was minimally responsive and O2 sat was found to be in the 80s on RA. Lasix, Duoneb and O2 was given, and he was brought into ER here. Patient admitted with severe dyspnea and hypoxia. He had bronchoscopy yesterday and symptoms started soon after that. On admission he had distended stomach with fluid retention. NG tube was placed. Strongly suspect aspiration pneumonia. For this reason, antibiotics were changed to Cefepime and Vanc. Patient had hyperka lemia that was corrected with insulin. Patient has acute on chronic renal failure. Continue IV fluids. Troponin mildly elevated. EKG shows no acute changes and patient has no chest pain. Elevated troponin may be related to renal insufficiency. Given the complex problems the patient has with elevated troponin, aspiration pneumonia, HELENE/CKD, diabetes and hyperkalemia, patient will transfer to a higher level of care. Latest Assessment & Plan Due to LLL PNA: Covid and flud are both negative, mono screen was positive. Rocephin and Azithromycin started. Cultures obtained. O2 protocol to keep O2 sat > 92%. RT on case, albuterol updraft scheduled and prn. Lasix for CHF component. Wean down and off O2 when able Code(s): J96.01 - ACUTE RESPIRATORY FAILURE WITH HYPOXIA (2) LLL pneumonia Current Visit: Yes Status: Acute Assessment & Plan: As above - Rocephin and Azithromycin started, cultures obtained 04/12: -Antibiotics changed to vanc/cefepime Code(s): J18.9 - PNEUMONIA, UNSPECIFIED ORGANISM #elevated troponins -EKG as stated above, trops uptrending -Will consult cards, discussed with family transfer to higher level of care, they would like to remain at [facility] for now (3) Altered mental status Current Visit: Yes Status: Acute Assessment & Plan: Acute metabolic encephalopathy due to infectious cause and hypoxia. Treating PNA, and O2 protocol. Monitor progress. CT head senile changes, no acute finding. UA not remarkable 04/12: -Improved although still confused, will continue to treat pna Code(s): R41.82 - ALTERED MENTAL STATUS, UNSPECIFIED (4) Abdominal pain Current Visit: No Status: Acute Assessment & Plan: He was found to have abdominal distention, NGT placed and 1 L suctioned from stomach. Now on intermittent suction. CT abd pending. May need surgery input if not better in AM. NPO status due to this Code(s): R10.9 - UNSPECIFIED ABDOMINAL PAIN (5) Hyperkalemia Current Visit: Yes Status: Acute Assessment & Plan: K was 5.4 -likely due to HELENE. Starting IVF, and this should help. Will repeat K in AM 04/12: -remains hyperkalemic, blood glucose levels also elevated, will treat Blood glucose and redraw bmp at noon Code(s): E87.5 - HYPERKALEMIA (6) Acute on chronic renal failure Current Visit: No Status: Acute Assessment & Plan: Cr 2.77, BUN 34. Has underlying CKD due to DM and HTN, but am unsure of his baseline. IVF started for NPO status. Dose all meds accordingly. Avoid IV contrast, NSAIDs and hypotension. Will monitor Cr trend Code(s): N17.9 - ACUTE KIDNEY FAILURE, UNSPECIFIED; N18.9 - CHRONIC KIDNEY DISEASE, UNSPECIFIED (7) CHF (congestive heart failure) Current Visit: Yes Status: Acute Assessment & Plan: BNP 844. Clinically SOB, and hypoxic. But could be due to PNA. On Lasix at home. I will continue Lasix 40mg IV daily here Code(s): I50.9 - HEART FAILURE, UNSPECIFIED (8) Afib Current Visit: Yes Status: Acute Assessment & Plan: Chronic, HR controlled. I am holding Eliquis tonight due to abdominal distention and NPO status. Heparin for DVT prophylaxis. If abd is acute, may need surgery, so would hold Eliquis anyways. Once we cleared him, can resume Eliquis for AFib Code(s): I48.91 - UNSPECIFIED ATRIAL FIBRILLATION (9) Mononucleosis Current Visit: Yes Status: Acute Assessment & Plan: Supportive care Code(s): B27.90 - INFECTIOUS MONONUCLEOSIS, UNSPECIFIED WITHOUT COMPLICATION (10) Leukocytosis Current Visit: No Status: Acute Assessment & Plan: WBC 27.6. Likely due tp PNA. Treating this, and monitoring WBC trend. Lactic acid was not elevated Code(s): D72.829 - ELEVATED WHITE BLOOD CELL COUNT, UNSPECIFIED I spent 35 minutes [id number] with the patient on the day of discharge performing discharge exam, discussing hospital stay and discharge instructions with patient and caregivers, preparation of discharge records, prescriptions & referral forms and addressing any questions/concerns the patient had as documented above. - Vitals & Intake/Output Vital Signs: Vital Signs Temperature 98.4 F 04/13/23 03:47 Pulse Rate 70 04/13/23 03:47 Respiratory Rate 15 04/13/23 03:47 Blood Pressure 146/53 04/13/23 03:47 O2 Sat by Pulse Oximetry 96 04/13/23 03:47 Oxygen-Last Documented O2 Percentage 3 Liters = 32% Intake & Output: Intake & Output 04/10/23 04/11/23 04/12/23 04/13/23 11:59 11:59 11:59 11:59 Intake Total 1030 1902 Output Total 2550 0995 Balance -1520 -1173 Weight 90.7 kg - Lab Result Diagrams: 04/13/23 05:11 04/12/23 12:04 Lab Results-Last 24 Hrs: Lab Results-Last 24 Hours 04/12/23 04/12/23 04/12/23 Range/Units 04:11 06:35 06:42 WBC (4.0-10.5) x10^3/uL RBC (4.1-5.6) x10^6/uL Hgb (12.5-18.0) g/dL Hct (42-50) % MCV (78-100) fL MCH (26-32) pg MCHC (32-36) g/dL RDW (11.5-14.0) % Plt Count (150-450) x10^3/uL MPV (7.5-11.0) fL Gran % (36.0-66.0) % Immature Gran % (Auto) (0.00-0.4) % Nucleat RBC Rel Count (0.00-0.1) % Eos # (Auto) (0-0.5) x10^3/uL Immature Gran # (Auto) (0.00-0.03) x10^3u/L Absolute Lymphs (auto) (1.0-4.6) x10^3/uL Absolute Monos (auto) (0.0-1.3) x10^3/uL Absolute Nucleated RBC (0.00-0.01) x10^3u/L Lymphocytes % (24.0-44.0) % Monocytes % (0.0-12.0) % Eosinophils % (0.00-5.0) % Basophils % (0.0-0.4) % Absolute Granulocytes (1.4-6.9) x10^3/uL Basophils # (0-0.4) x10^3/uL Sodium (137-145) mmol/L Potassium (3.5-5.1) mmol/L Chloride (98-107) mmol/L Carbon Dioxide (22-30) mmol/L Anion Gap (5-15) MEQ/L BUN (9-20) mg/dL Creatinine (0.66-1.25) mg/dL Estimated GFR ML/MIN Glucose (74-106) mg/dL POC Glucometer 356 H 356 H (74 to 106) mg/dL Calcium (8.4-10.2) mg/dL Troponin I 0.485 H* (0.000-0.034) ng/mL 04/12/23 04/12/23 04/12/23 Range/Units 11:02 12:04 16:00 WBC (4.0-10.5) x10^3/uL RBC (4.1-5.6) x10^6/uL Hgb (12.5-18.0) g/dL Hct (42-50) % MCV (78-100) fL MCH (26-32) pg MCHC (32-36) g/dL RDW (11.5-14.0) % Plt Count (150-450) x10^3/uL MPV (7.5-11.0) fL Gran % (36.0-66.0) % Immature Gran % (Auto) (0.00-0.4) % Nucleat RBC Rel Count (0.00-0.1) % Eos # (Auto) (0-0.5) x10^3/uL Immature Gran # (Auto) (0.00-0.03) x10^3u/L Absolute Lymphs (auto) (1.0-4.6) x10^3/uL Absolute Monos (auto) (0.0-1.3) x10^3/uL Absolute Nucleated RBC (0.00-0.01) x10^3u/L Lymphocytes % (24.0-44.0) % Monocytes % (0.0-12.0) % Eosinophils % (0.00-5.0) % Basophils % (0.0-0.4) % Absolute Granulocytes (1.4-6.9) x10^3/uL Basophils # (0-0.4) x10^3/uL Sodium 138 (137-145) mmol/L Potassium 5.0 (3.5-5.1) mmol/L Chloride 109 H (98-107) mmol/L Carbon Dioxide 24 (22-30) mmol/L Anion Gap 9.9 (5-15) MEQ/L BUN 39 H (9-20) mg/dL Creatinine 2.57 H (0.66-1.25) mg/dL Estimated GFR 24.2 ML/MIN Glucose 312 H (74-106) mg/dL POC Glucometer 287 H 272 H (74 to 106) mg/dL Calcium 8.5 (8.4-10.2) mg/dL Troponin I (0.000-0.034) ng/mL 04/12/23 04/12/23 04/13/23 Range/Units 21:29 Unknown 05:11 WBC 23.3 H (4.0-10.5) x10^3/uL RBC 3.44 L (4.1-5.6) x10^6/uL Hgb 9.4 L (12.5-18.0) g/dL Hct 30.3 L (42-50) % MCV 88.1 (78-100) fL MCH 27.3 (26-32) pg MCHC 31.0 L (32-36) g/dL RDW 16.9 H (11.5-14.0) % Plt Count 181 (150-450) x10^3/uL MPV 13.0 H (7.5-11.0) fL Gran % 90.3 H (36.0-66.0) % Immature Gran % (Auto) 1.2 H (0.00-0.4) % Nucleat RBC Rel Count 0.0 (0.00-0.1) % Eos # (Auto) 0.06 (0-0.5) x10^3/uL Immature Gran # (Auto) 0.27 H (0.00-0.03) x10^3u/L Absolute Lymphs (auto) 1.17 (1.0-4.6) x10^3/uL Absolute Monos (auto) 0.69 (0.0-1.3) x10^3/uL Absolute Nucleated RBC 0.00 (0.00-0.01) x10^3u/L Lymphocytes % 5.0 L (24.0-44.0) % Monocytes % 3.0 (0.0-12.0) % Eosinophils % 0.3 (0.00-5.0) % Basophils % 0.2 (0.0-0.4) % Absolute Granulocytes 21.01 H (1.4-6.9) x10^3/uL Basophils # 0.05 (0-0.4) x10^3/uL Sodium (137-145) mmol/L Potassium (3.5-5.1) mmol/L Chloride (98-107) mmol/L Carbon Dioxide (22-30) mmol/L Anion Gap (5-15) MEQ/L BUN (9-20) mg/dL Creatinine (0.66-1.25) mg/dL Estimated GFR ML/MIN Glucose (74-106) mg/dL POC Glucometer 229 H (74 to 106) mg/dL Calcium (8.4-10.2) mg/dL Troponin I 1.800 H* (0.000-0.034) ng/mL Micro Results-Entire Visit: Microbiology 04/11/23 18:35 Urine Culture - Preliminary Catherized NO GROWTH TO DATE Accuchecks Date 04/12/23 Date 04/12/23 Date 04/12/23 Date 04/11/23 Time 16:01 Time 16:01 Time 16:01 - Radiology Exams Ordered Rad Exams-Entire Visit: Radiology Procedures Category Date Time Status ABDOMEN AND PELVIS W/0 CONTRAS [CT] Stat Exams 04/11/23 18:36 Completed CHEST WITHOUT CONTRAST [CT] Stat Exams 04/11/23 18:53 Completed HEAD WITHOUT CONTRAST [CT] Stat Exams 04/11/23 18:36 Completed - Procedures and Test Procedures and Tests throughout Hospitalization: Therapy Orders & Screens 04/11/23 20:58 EKG REPEAT IN AM Comment: Oxygen Venti-Mask 40% Comment: Respiratory Therapy Consult ONCE Comment: Reason For Exam: 04/11/23 21:24 Respiratory Therapy Assessment DAILY Comment: Diagnosis: LLLpneumonia 04/11/23 21:42 BiPap/CPAP STAT Comment: Diagnosis: LLLpneumonia 04/12/23 07:31 EKG STAT Comment: Diagnosis: LLLpneumonia 04/13/23 05:00 EKG ROUTINE Comment: Diagnosis: LLLpneumonia Final Diagnosis/Problem List - Final Discharge Diagnosis/Problem (1) Acute respiratory failure with hypoxia Current Visit: Yes Status: Acute Code(s): J96.01 - ACUTE RESPIRATORY FAILURE WITH HYPOXIA (2) Afib Current Visit: Yes Status: Acute Code(s): I48.91 - UNSPECIFIED ATRIAL FIBRILLATION (3) Altered mental status Current Visit: Yes Status: Acute Code(s): R41.82 - ALTERED MENTAL STATUS, UNSPECIFIED (4) CHF (congestive heart failure) Current Visit: Yes Status: Acute Code(s): I50.9 - HEART FAILURE, UNSPECIFIED (5) Hyperkalemia Current Visit: Yes Status: Acute Code(s): E87.5 - HYPERKALEMIA (6) LLL pneumonia Current Visit: Yes Status: Acute Code(s): J18.9 - PNEUMONIA, UNSPECIFIED ORGANISM (7) Mononucleosis Current Visit: Yes Status: Acute Code(s): B27.90 - INFECTIOUS MONONUCLEOSIS, UNSPECIFIED WITHOUT COMPLICATION (8) Abdominal pain Current Visit: No Status: Acute Code(s): R10.9 - UNSPECIFIED ABDOMINAL PAIN (9) Acute on chronic renal failure Current Visit: No Status: Acute Code(s): N17.9 - ACUTE KIDNEY FAILURE, UNSPECIFIED; N18.9 - CHRONIC KIDNEY DISEASE, UNSPECIFIED (10) Leukocytosis Current Visit: No Status: Acute Code(s): D72.829 - ELEVATED WHITE BLOOD CELL COUNT, UNSPECIFIED (11) Elevated troponin Current Visit: Yes Status: Acute Code(s): R79.89 - OTHER SPECIFIED ABNORMAL FINDINGS OF BLOOD CHEMISTRY - Discharge Disposition: Home, Self-Care Condition: Serious Prescriptions: No Action Multivitamin [Multivitamins] 1 tab PO DAILY Metoprolol Tartrate 25 mg [Lopressor 25MG Tab] 25 mg PO BID Hydrocodone/Acetaminophen [Hydrocodone-Acetamin 10-325 mg] 1 tab PO Q6HPRN PRN PRN Reason: Pain Amlodipine Besylate 5 mg [Norvasc 5 mg] 10 mg PO DAILY Apixaban [Eliquis 5 mg Tablet] 5 mg PO BID Methylphenidate 5 mg [Ritalin 5 MG] 20 mg PO QAM Tamsulosin HCl 0.4 mg [Flomax 0.4 MG] 0.4 mg PO DAILY Omeprazole 40 mg PO DAILY Pregabalin 50 mg [Lyrica 50MG] 150 mg PO BID Albuterol 2.5 mg/3 ml Neb [Proventil 2.5 mg/3 ml Neb] 1 neb IH DAILY PRN PRN PRN Reason: Shortness Of Breath Sucralfate 1 gm [Carafate 1 GM] 1 gm PO QID Ferrous Sulfate 325 mg [Feosol 325 mg] 325 mg PO DAILY Dapagliflozin Propanediol [Farxiga] 10 mg PO DAILY Furosemide 20 mg [Lasix 20 mg] 20 mg PO DAILY Nitroglycerin 0.4 mg Tablet [Nitrostat 0.4 MG Tablet] 0.4 mg SL UD Allopurinol 300 mg [Zyloprim 300 mg] 1 tab PO DAILY Methylphenidate 5 mg [Ritalin 5 MG] 10 mg PO LUNCH Isosorbide Mononitrate 30 mg [Imdur 30 MG] 30 mg PO DAILY Metformin HCl 500 mg [Glucophage 500 MG] 1,000 mg PO BIDWM Insulin Glargine/Lixisenatide [Soliqua 100 Unit-33 Mcg/ml Pen] 20 units SQ DAILY Insulin Regular, Human [Novolin R] 100 unit SQ UD Bimatoprost 0.01% [Lumigan 0.01% 2.5 ml] 2.5 ml OP HS Albuterol/Ipratropium 3ml Neb* [DUONEB 0.5-3 MG/3 ml Neb] 3 ml IH QID PRN PRN Reason: Shortness Of Breath Follow up with: JUMA LANE [Primary Care Provider] -
[2023-04-13 05:36] LABS: ALBUMIN 3.2 g/dL (3.5-5.0); ANION GAP 9.6 MEQ/L (5-15); BILIRUBIN,TOTAL 0.5 mg/dL (0.2-1.3); Calcium 8.4 mg/dL (8.4-10.2); Creatinine 1 2.26 mg/dL (0.66-1.25); EST GLOMERULAR FILTRATION RATE 28.3 ML/MIN; Total Protein 6.3 g/dL (6.3-8.2)
[2023-04-13 07:10] LABS: Slide Review 1 YES
[2023-04-13] MEDS: HUMALOG SQ PRN ×2 (08:39→12:25)
[2023-04-13] MEDS: Imdur 30 MG PO SCH (09:16)
[2023-04-13] MEDS: Lasix 40 MG/4 ML IV SCH (09:16)
[2023-04-13] MEDS: MAXIPIME 1 GM** 1 G in Dextrose 5%/Water IV Soln. 100ML PLUS BAG 100 ML IV SCH ×2 (09:17→21:53)
[2023-04-13] MEDS: HEPARIN 5000 UNITS/0.5 ML (HIGH RISK MED) SQ SCH (09:17)
[2023-04-13] MEDS: HYDROCODONE-ACETAMIN 10-325 MG PO PRN (10:37)
[2023-04-13] MEDS ORDERED: CHLORASEPTIC SPRAY 180 ML PO PRN (10:40)
[2023-04-13] MEDS: ECOTRIN 81 MG PO SCH (16:32)
[2023-04-13] MEDS ORDERED: PHARMACY RENAL DOSING MC ONE (17:24)
--- NOTE | 2023-04-13 18:06 | PCM.NOTE ---
Date and Time: 04/13/23 1800 Subjective Assessment: is a 83 year old male with history of AFib, COPD, CHF, HTN, CAD s/p stents, HLP, DMII, GERD presented with AMS and SOB with hypoxia on RA. He apparently had a bronchoscopy done at an outside hospital today as a follow-up to an abnormal chest xray. Procedure was unremarkable, pt sent home. But later in the late afternoon, he became lethargic, altered and SOB. EMS was called and when they arrived, he was minimally responsive and O2 sat was found to be in the 80s on RA. Lasix, Duoneb and O2 was given, and he was brought into ER here. Patient admitted with severe dyspnea and hypoxia. He had bronchoscopy yesterday and symptoms started soon after that. On admission he had distended stomach with fluid retention. NG tube was placed. Strongly suspect aspiration pneumonia. For this reason, antibiotics were changed to Cefepime and Vanc. Patient had hyperkalemia that was corrected with insulin. Patient has acute on chronic renal failure. Continue IV fluids. Troponin mildly elevated. EKG shows no acute changes and patient has no chest pain. Elevated troponin may be related to renal insufficiency. Given the complex problems the patient has with elevated troponin, aspiration pneumonia, HELENE/CKD, diabetes and hyperkalemia, patient will transfer to a higher level of care when bed is available. 04/13: Patient examined bedside. No overnight events noted. Endorses overall improvement. Pain meds have helped with his back pain. Mentation has improved A&O x 3. Troponins uptrending, cardiology consulted, new orders for full dose lovenox initiated as well as daily aspirin. Patient inadvertently pulled out NG tube. Will hold replacing it for now. Denies fever,cough, sob, cp, abdominal pain, WILKINSON, dizziness, N/V/D. - Review of Systems Constitutional: Weakness Eyes: No Symptoms Ears, Nose, & Throat: No Symptoms Respiratory: Cough, Short Of Breath Cardiac: No Symptoms Abdominal/Gastrointestinal: No Symptoms Genitourinary Symptoms: No Symptoms Musculoskeletal: Back Pain (improved) Skin: No Symptoms Neurological: No Symptoms Psychological: No Symptoms Endocrine: No Symptoms Hematologic/Lymphatic: No Symptoms Immunological/Allergic: No Symptoms Objective Exam General Appearance: no apparent distress Neurologic Exam: alert, oriented x 3, cooperative Skin Exam: pale Eye Exam: PERRL Ears, Nose, Throat Exam: dry mucous membranes Respiratory Exam: crackles/rales Cardiovascular Exam: regular rate/rhythm, normal heart sounds Gastrointestinal/Abdomen Exam: distention Extremity Exam: normal inspection Back Exam: normal inspection OBJECTIVE DATA Vital Signs: Vital Signs - 24 hr Temp Pulse Resp BP Pulse Ox 04/13/23 16:00 99.5 F 97 H 17 116/65 96 04/13/23 13:20 97 H 21 94 L 04/13/23 12:00 99 H 04/13/23 11:19 99.7 F 97 H 19 131/73 92 L 04/13/23 09:47 99.3 F 92 H 18 99 04/13/23 08:00 90 04/13/23 07:22 97.8 F 80 23 150/63 96 04/13/23 06:28 80 16 100 04/13/23 03:47 98.4 F 70 15 146/53 96 04/13/23 03:46 67 04/13/23 01:25 67 18 99 04/12/23 23:54 70 04/12/23 23:40 99 F 67 13 132/54 95 04/12/23 21:03 69 04/12/23 19:44 99.1 F 72 21 109/65 94 L 04/12/23 18:48 73 18 94 L Pain Assessment - Last Documented Pain Intensity 5 Pain Scale Used 0-10 Pain Scale Intake and Output: Intake & Output 04/11/23 04/12/23 04/13/23 04/14/23 11:59 11:59 11:59 11:59 Intake Total 1030 1902 Output Total 5404 4948 1704 Balance -1527 -4251 -1703 Weight 90.7 kg 90.7 kg Lab Results: Lab Results-Last 24 Hours 04/12/23 04/13/23 04/13/23 Range/Units 21:29 05:11 05:11 WBC 23.3 H (4.0-10.5) x10^3/uL RBC 3.44 L (4.1-5.6) x10^6/uL Hgb 9.4 L (12.5-18.0) g/dL Hct 30.3 L (42-50) % MCV 88.1 (78-100) fL MCH 27.3 (26-32) pg MCHC 31.0 L (32-36) g/dL RDW 16.9 H (11.5-14.0) % Plt Count 181 (150-450) x10^3/uL MPV 13.0 H (7.5-11.0) fL Gran % 90.3 H (36.0-66.0) % Immature Gran % (Auto) 1.2 H (0.00-0.4) % Nucleat RBC Rel Count 0.0 (0.00-0.1) % Eos # (Auto) 0.06 (0-0.5) x10^3/uL Immature Gran # (Auto) 0.27 H (0.00-0.03) x10^3u/L Absolute Lymphs (auto) 1.17 (1.0-4.6) x10^3/uL Absolute Monos (auto) 0.69 (0.0-1.3) x10^3/uL Absolute Nucleated RBC 0.00 (0.00-0.01) x10^3u/L Lymphocytes % 5.0 L (24.0-44.0) % Monocytes % 3.0 (0.0-12.0) % Eosinophils % 0.3 (0.00-5.0) % Basophils % 0.2 (0.0-0.4) % Absolute Granulocytes 21.01 H (1.4-6.9) x10^3/uL Basophils # 0.05 (0-0.4) x10^3/uL Sodium 138 (137-145) mmol/L Potassium 5.0 (3.5-5.1) mmol/L Chloride 110 H (98-107) mmol/L Carbon Dioxide 23 (22-30) mmol/L Anion Gap 9.6 (5-15) MEQ/L BUN 38 H (9-20) mg/dL Creatinine 2.26 H (0.66-1.25) mg/dL Estimated GFR 28.3 ML/MIN Glucose 214 H (74-106) mg/dL POC Glucometer 229 H (74 to 106) mg/dL Calcium 8.4 (8.4-10.2) mg/dL Total Bilirubin 0.50 (0.2-1.3) mg/dL AST 85 H (17-59) U/L ALT 31 (0-50) U/L Alkaline Phosphatase 59 (38-126) U/L Troponin I (0.000-0.034) ng/mL NT-Pro-B Natriuret Pep (<300) pg/mL Serum Total Protein 6.3 (6.3-8.2) g/dL Albumin 3.2 L (3.5-5.0) g/dL Slides for Path Review YES 04/13/23 04/13/23 04/13/23 Range/Units 05:11 07:46 11:46 WBC (4.0-10.5) x10^3/uL RBC (4.1-5.6) x10^6/uL Hgb (12.5-18.0) g/dL Hct (42-50) % MCV (78-100) fL MCH (26-32) pg MCHC (32-36) g/dL RDW (11.5-14.0) % Plt Count (150-450) x10^3/uL MPV (7.5-11.0) fL Gran % (36.0-66.0) % Immature Gran % (Auto) (0.00-0.4) % Nucleat RBC Rel Count (0.00-0.1) % Eos # (Auto) (0-0.5) x10^3/uL Immature Gran # (Auto) (0.00-0.03) x10^3u/L Absolute Lymphs (auto) (1.0-4.6) x10^3/uL Absolute Monos (auto) (0.0-1.3) x10^3/uL Absolute Nucleated RBC (0.00-0.01) x10^3u/L Lymphocytes % (24.0-44.0) % Monocytes % (0.0-12.0) % Eosinophils % (0.00-5.0) % Basophils % (0.0-0.4) % Absolute Granulocytes (1.4-6.9) x10^3/uL Basophils # (0-0.4) x10^3/uL Sodium (137-145) mmol/L Potassium (3.5-5.1) mmol/L Chloride (98-107) mmol/L Carbon Dioxide (22-30) mmol/L Anion Gap (5-15) MEQ/L BUN (9-20) mg/dL Creatinine (0.66-1.25) mg/dL Estimated GFR ML/MIN Glucose (74-106) mg/dL POC Glucometer 204 H 215 H (74 to 106) mg/dL Calcium (8.4-10.2) mg/dL Total Bilirubin (0.2-1.3) mg/dL AST (17-59) U/L ALT (0-50) U/L Alkaline Phosphatase (38-126) U/L Troponin I 6.340 H* (0.000-0.034) ng/mL NT-Pro-B Natriuret Pep (<300) pg/mL Serum Total Protein (6.3-8.2) g/dL Albumin (3.5-5.0) g/dL Slides for Path Review 04/13/23 04/13/23 04/13/23 Range/Units 13:15 13:15 16:40 WBC (4.0-10.5) x10^3/uL RBC (4.1-5.6) x10^6/uL Hgb (12.5-18.0) g/dL Hct (42-50) % MCV (78-100) fL MCH (26-32) pg MCHC (32-36) g/dL RDW (11.5-14.0) % Plt Count (150-450) x10^3/uL MPV (7.5-11.0) fL Gran % (36.0-66.0) % Immature Gran % (Auto) (0.00-0.4) % Nucleat RBC Rel Count (0.00-0.1) % Eos # (Auto) (0-0.5) x10^3/uL Immature Gran # (Auto) (0.00-0.03) x10^3u/L Absolute Lymphs (auto) (1.0-4.6) x10^3/uL Absolute Monos (auto) (0.0-1.3) x10^3/uL Absolute Nucleated RBC (0.00-0.01) x10^3u/L Lymphocytes % (24.0-44.0) % Monocytes % (0.0-12.0) % Eosinophils % (0.00-5.0) % Basophils % (0.0-0.4) % Absolute Granulocytes (1.4-6.9) x10^3/uL Basophils # (0-0.4) x10^3/uL Sodium (137-145) mmol/L Potassium (3.5-5.1) mmol/L Chloride (98-107) mmol/L Carbon Dioxide (22-30) mmol/L Anion Gap (5-15) MEQ/L BUN (9-20) mg/dL Creatinine (0.66-1.25) mg/dL Estimated GFR ML/MIN Glucose (74-106) mg/dL POC Glucometer 198 H (74 to 106) mg/dL Calcium (8.4-10.2) mg/dL Total Bilirubin (0.2-1.3) mg/dL AST (17-59) U/L ALT (0-50) U/L Alkaline Phosphatase (38-126) U/L Troponin I 4.750 H* (0.000-0.034) ng/mL NT-Pro-B Natriuret Pep 90323 (<300) pg/mL Serum Total Protein (6.3-8.2) g/dL Albumin (3.5-5.0) g/dL Slides for Path Review Radiology Exams: Radiology Procedures Category Date Time Status ABDOMEN AND PELVIS W/0 CONTRAS [CT] Stat Exams 04/11/23 18:36 Completed CHEST WITHOUT CONTRAST [CT] Stat Exams 04/11/23 18:53 Completed ECHO W/2D AND DOPPLER [US] Routine Exams 04/13/23 13:11 Taken HEAD WITHOUT CONTRAST [CT] Stat Exams 04/11/23 18:36 Completed Multi-Disciplinary Progress Notes: Multi-Disciplinary Progress Notes 04/13/23 11:04 Case Management Note by Ann Marie Cox NO FURTHER DC PLANNING AT THIS TIME- PATIENT AWAITING TRANSFER TO HIGHER LEVEL OF CARE Initialized on 04/13/23 11:04 - END OF NOTE Assessment/Plan (1) Acute respiratory failure with hypoxia Current Visit: Yes Status: Acute Assessment & Plan: Due to LLL PNA: Covid and flud are both negative, mono screen was positive. Rocephin and Azithromycin started. Cultures obtained. O2 protocol to keep O2 sat > 92%. RT on case, albuterol updraft scheduled and prn. Lasix for CHF component. Wean down and off O2 when able Code(s): J96.01 - ACUTE RESPIRATORY FAILURE WITH HYPOXIA (2) LLL pneumonia Current Visit: Yes Status: Acute Assessment & Plan: As above - Rocephin and Azithromycin started, cultures obtained 04/12: -Antibiotics changed to vanc/cefepime 04/13: WBC trending down, will continue on vanc/cefepime -Cultures pending, blood culture x 1 with gram + cocci in clusters Code(s): J18.9 - PNEUMONIA, UNSPECIFIED ORGANISM #elevated troponins -EKG as stated above, trops uptrending -Will consult cards, discussed with family transfer to higher level of care, they would like to remain at [facility] for now 04/13: -Trops uptrending now at 4.7, cardiology has been consulted with recs to add full dose lovenox as well as daily asa, patient to transfer to higher level of care when bed available (3) Altered mental status Current Visit: Yes Status: Acute Assessment & Plan: Acute metabolic encephalopathy due to infectious cause and hypoxia. Treating PNA, and O2 protocol. Monitor progress. CT head senile changes, no acute finding. UA not remarkable 04/12: -Improved although still confused, will continue to treat pna 04/13: -A&O x 3 this morning Code(s): R41.82 - ALTERED MENTAL STATUS, UNSPECIFIED (4) Abdominal pain Current Visit: No Status: Acute Assessment & Plan: He was found to have abdominal distention, NGT placed and 1 L suctioned from stomach. Now on intermittent suction. CT abd pending. May need surgery input if not better in AM. NPO status due to this 04/13: -NG tube pulled out by patient, would like to hold replacing for now Code(s): R10.9 - UNSPECIFIED ABDOMINAL PAIN (5) Hyperkalemia Current Visit: Yes Status: Acute Assessment & Plan: K was 5.4 -likely due to HELENE. Starting IVF, and this should help. Will repeat K in AM 04/12: -remains hyperkalemic, blood glucose levels also elevated, will treat Blood glucose and redraw bmp at noon 04/13: -Resolved Code(s): E87.5 - HYPERKALEMIA (6) Acute on chronic renal failure Current Visit: No Status: Acute Assessment & Plan: Cr 2.77, BUN 34. Has underlying CKD due to DM and HTN, but am unsure of his baseline. IVF started for NPO status. Dose all meds accordingly. Avoid IV contrast, NSAIDs and hypotension. Will monitor Cr trend 04/13: -Downtrending, near baseline (1.9-2.1) at 2.2 Code(s): N17.9 - ACUTE KIDNEY FAILURE, UNSPECIFIED; N18.9 - CHRONIC KIDNEY DISEASE, UNSPECIFIED (7) CHF (congestive heart failure) Current Visit: Yes Status: Acute Assessment & Plan: BNP 844. Clinically SOB, and hypoxic. But could be due to PNA. On Lasix at home. I will continue Lasix 40mg IV daily here [place]13[place] [address], will continue lasix per cards Code(s): I50.9 - HEART FAILURE, UNSPECIFIED (8) Afib Current Visit: Yes Status: Acute Assessment & Plan: Chronic, HR controlled. I am holding Eliquis tonight due to abdominal distention and NPO status. Heparin for DVT prophylaxis. If abd is acute, may need surgery, so would hold Eliquis anyways. Once we cleared him, can resume Eliquis for AFib Code(s): I48.91 - UNSPECIFIED ATRIAL FIBRILLATION (9) Mononucleosis Current Visit: Yes Status: Acute Assessment & Plan: Supportive care Code(s): B27.90 - INFECTIOUS MONONUCLEOSIS, UNSPECIFIED WITHOUT COMPLICATION (10) Leukocytosis Current Visit: No Status: Acute Assessment & Plan: WBC 23.3. Likely due tp PNA. Treating this, and monitoring WBC trend. Lactic acid was not elevated Code(s): D72.829 - ELEVATED WHITE BLOOD CELL COUNT, UNSPECIFIED Code(s): J96.01 - ACUTE RESPIRATORY FAILURE WITH HYPOXIA (2) Afib Current Visit: Yes Status: Acute Code(s): I48.91 - UNSPECIFIED ATRIAL FIBRILLATION (3) Altered mental status Current Visit: Yes Status: Acute Code(s): R41.82 - ALTERED MENTAL STATUS, UNSPECIFIED (4) CHF (congestive heart failure) Current Visit: Yes Status: Acute Code(s): I50.9 - HEART FAILURE, UNSPECIFIED (5) Hyperkalemia Current Visit: Yes Status: Acute Code(s): E87.5 - HYPERKALEMIA (6) LLL pneumonia Current Visit: Yes Status: Acute Code(s): J18.9 - PNEUMONIA, UNSPECIFIED ORGANISM (7) Mononucleosis Current Visit: Yes Status: Acute Code(s): B27.90 - INFECTIOUS MONONUCLEOSIS, UNSPECIFIED WITHOUT COMPLICATION (8) Abdominal pain Current Visit: No Status: Acute Code(s): R10.9 - UNSPECIFIED ABDOMINAL PAIN (9) Acute on chronic renal failure Current Visit: No Status: Acute Code(s): N17.9 - ACUTE KIDNEY FAILURE, UNSPECIFIED; N18.9 - CHRONIC KIDNEY DISEASE, UNSPECIFIED (10) Leukocytosis Current Visit: No Status: Acute Code(s): D72.829 - ELEVATED WHITE BLOOD CELL COUNT, UNSPECIFIED (11) Elevated troponin Current Visit: Yes Status: Acute Code(s): R79.89 - OTHER SPECIFIED ABNORMAL FINDINGS OF BLOOD CHEMISTRY
[2023-04-13] MEDS: ENOXAPARIN SODIUM SQ SCH (21:49)
[2023-04-13] MEDS: LUMIGAN 0.01% 2.5 ML OP SCH (21:50)
[2023-04-13] MEDS: VANCOMYCIN 1.25 GM/250 ML BAG 1.25 GM/250 ML PIGGYBACK IV SCH (23:14)
[2023-04-14] MEDS: PROVENTIL 2.5 MG/3 ML NEB IH SCH ×4 (01:24→19:00)
[2023-04-14] MEDS ORDERED: Haldol 5 MG IM PRN (02:45)
[2023-04-14 04:40] LABS: Absolute Neutrophil Ct (ANC) 13.28 x10^3/uL (1.4-6.9); BASOPHIL % 0.4 % (0.0-0.4); Basophil (Absolute #) 0.06 x10^3/uL (0-0.4); Eosinophil % 1.2 % (0.00-5.0); Eosinophil (Absolute #) 0.18 x10^3/uL (0-0.5); Hematocrit 35.1 % (42-50); Hemoglobin 10.8 g/dL (12.5-18.0); IMMATURE GRAN # 0.25 x10^3u/L (0.00-0.03); IMMATURE GRAN % 1.6 % (0.00-0.4); Lymphocyte (Absolute #) 1.18 x10^3/uL (1.0-4.6); Lymphocytes % 7.6 % (24.0-44.0); Mean Cell Volume 86.9 fL (78-100); Mean Corpuscular Hemoglobin 26.7 pg (26-32); Mean Corpuscular Hgb Concent. 30.8 g/dL (32-36); Mean Platelet Volume 12.8 fL (7.5-11.0); Monocyte (Absolute #) 0.66 x10^3/uL (0.0-1.3); Monocytes % 4.2 % (0.0-12.0); Platelet Count 239 x10^3/uL (150-450); Red Blood Count 4.04 x10^6/uL (4.1-5.6); Red Cell Distribution Width 16.1 % (11.5-14.0); White Blood Count 15.6 x10^3/uL (4.0-10.5)
[2023-04-14 05:05] LABS: ALBUMIN 3.6 g/dL (3.5-5.0); BILIRUBIN,TOTAL 0.8 mg/dL (0.2-1.3); Creatinine 1 1.74 mg/dL (0.66-1.25); EST GLOMERULAR FILTRATION RATE 38.7 ML/MIN; Potassium 4.4 mmol/L (3.5-5.1); Total Protein 6.9 g/dL (6.3-8.2)
--- NOTE | 2023-04-14 08:32 | XRAY ---
Indication: Abdomen distention. Ileus. Comparison: None KUB demonstrates nonspecific nonobstructed bowel gas pattern with NG tube and Gamble catheter in situ. Solid organs unremarkable with scattered vascular calcifications and cholecystectomy. Osseous structures intact with osteopenia, multilevel degenerative spondylosis, and L5-S1 fusion hardware.
[2023-04-14] MEDS: ENOXAPARIN SODIUM SQ SCH (09:46)
[2023-04-14] MEDS: Imdur 30 MG PO SCH (09:47)
[2023-04-14] MEDS: ECOTRIN 81 MG PO SCH (09:47)
[2023-04-14] MEDS: MAXIPIME 1 GM** 1 G in Dextrose 5%/Water IV Soln. 100ML PLUS BAG 100 ML IV SCH (09:53)
[2023-04-14] MEDS: HUMALOG SQ PRN ×2 (10:20→12:24)
--- NOTE | 2023-04-14 12:24 | PCM.NOTE ---
Date and Time: 04/14/23 1218 Subjective Assessment: is a 83 year old male with history of AFib, COPD, CHF, HTN, CAD s/p stents, HLP, DMII, GERD presented with AMS and SOB with hypoxia on RA. He apparently had a bronchoscopy done at an outside hospital today as a follow-up to an abnormal chest xray. Procedure was unremarkable, pt sent home. But later in the late afternoon, he became lethargic, altered and SOB. EMS was called and when they arrived, he was minimally responsive and O2 sat was found to be in the 80s on RA. Lasix, Duoneb and O2 was given, and he was brought into ER here. Patient admitted with severe dyspnea and hypoxia. He had bronchoscopy yesterday and symptoms started soon after that. On admission he had distended stomach with fluid retention. NG tube was placed. Strongly suspect aspiration pneumonia. For this reason, antibiotics were changed to Cefepime and Vanc. Patient had hyperkalemia that was corrected with insulin. Patient has acute on chronic renal failure. Continue IV fluids. Troponin mildly elevated. EKG shows no acute changes and patient has no chest pain. Elevated troponin may be related to renal insufficiency. Given the complex problems the patient has with elevated troponin, aspiration pneumonia, HELENE/CKD, diabetes and hyperkalemia, patient will transfer to a higher level of care when bed is available. 04/13: Patient examined bedside. No overnight events noted. Endorses overall improvement. Pain meds have helped with his back pain. Mentation has improved A&O x 3. Troponins uptrending, cardiology consulted, new orders for full dose lovenox initiated as well as daily aspirin. Patient inadvertently pulled out NG tube. Will hold replacing it for now. Denies fever,cough, sob, cp, abdominal pain, WILKINSON, dizziness, N/V/D. 04/14: Patient continues to show improvement. Overnight events noted where patient was combative with staff and confused. He appears to back to baseline today. He did have some trouble remembering what year it was but otherwise orientated to self/place/president. This may be secondary to infection vs hospital delirium. Transfer is pending currently. - Review of Systems Constitutional: No Symptoms Eyes: No Symptoms Ears, Nose, & Throat: No Symptoms Respiratory: Short Of Breath Cardiac: No Symptoms Abdominal/Gastrointestinal: No Symptoms Genitourinary Symptoms: No Symptoms Musculoskeletal: No Symptoms Skin: No Symptoms Neurological: No Symptoms Psychological: No Symptoms Endocrine: No Symptoms Hematologic/Lymphatic: No Symptoms Immunological/Allergic: No Symptoms Objective Exam General Appearance: no apparent distress Neurologic Exam: alert, cooperative, other (oriented to self/place/president) Eye Exam: PERRL Ears, Nose, Throat Exam: normal ENT inspection Neck Exam: normal inspection Respiratory Exam: crackles/rales Cardiovascular Exam: tachycardia Gastrointestinal/Abdomen Exam: soft, normal bowel sounds Extremity Exam: normal inspection Back Exam: normal inspection OBJECTIVE DATA Vital Signs: Vital Signs - 24 hr Temp Pulse Resp BP Pulse Ox 04/14/23 12:00 99.7 F 108 H 19 152/91 94 L 04/14/23 08:00 99.5 F 102 H 18 159/90 100 04/14/23 07:11 117 H 18 94 L 04/14/23 04:00 99.7 F 116 H 14 94 L 04/14/23 00:01 105 H 04/13/23 23:39 99.9 F 105 H 21 136/77 94 L 04/13/23 20:32 107 H 04/13/23 20:00 99.7 F 107 H 17 139/77 94 L 04/13/23 18:55 106 H 17 95 04/13/23 16:00 99.5 F 97 H 17 116/65 96 04/13/23 13:20 97 H 21 94 L Pain Assessment - Last Documented Pain Intensity 5 Pain Scale Used 0-10 Pain Scale Intake and Output: Intake & Output 04/12/23 04/13/23 04/14/23 04/15/23 11:59 11:59 11:59 11:59 Intake Total 1030 1902 820 Output Total 5701 4100 4377 Balance -5711 -4757 -9874 Weight 90.7 kg 90.7 kg Lab Results: Lab Results-Last 24 Hours 04/11/23 04/13/23 04/13/23 Range/Units 19:33 13:15 13:15 WBC (4.0-10.5) x10^3/uL RBC (4.1-5.6) x10^6/uL Hgb (12.5-18.0) g/dL Hct (42-50) % MCV (78-100) fL MCH (26-32) pg MCHC (32-36) g/dL RDW (11.5-14.0) % Plt Count (150-450) x10^3/uL MPV (7.5-11.0) fL Gran % (36.0-66.0) % Immature Gran % (Auto) (0.00-0.4) % Nucleat RBC Rel Count (0.00-0.1) % Eos # (Auto) (0-0.5) x10^3/uL Immature Gran # (Auto) (0.00-0.03) x10^3u/L Absolute Lymphs (auto) (1.0-4.6) x10^3/uL Absolute Monos (auto) (0.0-1.3) x10^3/uL Absolute Nucleated RBC (0.00-0.01) x10^3u/L Lymphocytes % (24.0-44.0) % Monocytes % (0.0-12.0) % Eosinophils % (0.00-5.0) % Basophils % (0.0-0.4) % Absolute Granulocytes (1.4-6.9) x10^3/uL Basophils # (0-0.4) x10^3/uL Sodium (137-145) mmol/L Potassium (3.5-5.1) mmol/L Chloride (98-107) mmol/L Carbon Dioxide (22-30) mmol/L Anion Gap (5-15) MEQ/L BUN (9-20) mg/dL Creatinine (0.66-1.25) mg/dL Estimated GFR ML/MIN Glucose (74-106) mg/dL POC Glucometer (74 to 106) mg/dL Calcium (8.4-10.2) mg/dL Total Bilirubin (0.2-1.3) mg/dL AST (17-59) U/L ALT (0-50) U/L Alkaline Phosphatase (38-126) U/L Troponin I 4.750 H* (0.000-0.034) ng/mL NT-Pro-B Natriuret Pep 19718 (<300) pg/mL Serum Total Protein (6.3-8.2) g/dL Albumin (3.5-5.0) g/dL Gastric Occult Blood Positive H (Negative) 04/13/23 04/13/23 04/14/23 Range/Units 16:40 20:56 04:07 WBC (4.0-10.5) x10^3/uL RBC (4.1-5.6) x10^6/uL Hgb (12.5-18.0) g/dL Hct (42-50) % MCV (78-100) fL MCH (26-32) pg MCHC (32-36) g/dL RDW (11.5-14.0) % Plt Count (150-450) x10^3/uL MPV (7.5-11.0) fL Gran % (36.0-66.0) % Immature Gran % (Auto) (0.00-0.4) % Nucleat RBC Rel Count (0.00-0.1) % Eos # (Auto) (0-0.5) x10^3/uL Immature Gran # (Auto) (0.00-0.03) x10^3u/L Absolute Lymphs (auto) (1.0-4.6) x10^3/uL Absolute Monos (auto) (0.0-1.3) x10^3/uL Absolute Nucleated RBC (0.00-0.01) x10^3u/L Lymphocytes % (24.0-44.0) % Monocytes % (0.0-12.0) % Eosinophils % (0.00-5.0) % Basophils % (0.0-0.4) % Absolute Granulocytes (1.4-6.9) x10^3/uL Basophils # (0-0.4) x10^3/uL Sodium (137-145) mmol/L Potassium (3.5-5.1) mmol/L Chloride (98-107) mmol/L Carbon Dioxide (22-30) mmol/L Anion Gap (5-15) MEQ/L BUN (9-20) mg/dL Creatinine (0.66-1.25) mg/dL Estimated GFR ML/MIN Glucose (74-106) mg/dL POC Glucometer 198 H 185 H 199 H (74 to 106) mg/dL Calcium (8.4-10.2) mg/dL Total Bilirubin (0.2-1.3) mg/dL AST (17-59) U/L ALT (0-50) U/L Alkaline Phosphatase (38-126) U/L Troponin I (0.000-0.034) ng/mL NT-Pro-B Natriuret Pep (<300) pg/mL Serum Total Protein (6.3-8.2) g/dL Albumin (3.5-5.0) g/dL Gastric Occult Blood (Negative) 04/14/23 04/14/23 04/14/23 Range/Units 04:36 04:36 08:17 WBC 15.6 H (4.0-10.5) x10^3/uL RBC 4.04 L (4.1-5.6) x10^6/uL Hgb 10.8 L (12.5-18.0) g/dL Hct 35.1 L (42-50) % MCV 86.9 (78-100) fL MCH 26.7 (26-32) pg MCHC 30.8 L (32-36) g/dL RDW 16.1 H (11.5-14.0) % Plt Count 239 (150-450) x10^3/uL MPV 12.8 H (7.5-11.0) fL Gran % 85.0 H (36.0-66.0) % Immature Gran % (Auto) 1.6 H (0.00-0.4) % Nucleat RBC Rel Count 0.0 (0.00-0.1) % Eos # (Auto) 0.18 (0-0.5) x10^3/uL Immature Gran # (Auto) 0.25 H (0.00-0.03) x10^3u/L Absolute Lymphs (auto) 1.18 (1.0-4.6) x10^3/uL Absolute Monos (auto) 0.66 (0.0-1.3) x10^3/uL Absolute Nucleated RBC 0.00 (0.00-0.01) x10^3u/L Lymphocytes % 7.6 L (24.0-44.0) % Monocytes % 4.2 (0.0-12.0) % Eosinophils % 1.2 (0.00-5.0) % Basophils % 0.4 (0.0-0.4) % Absolute Granulocytes 13.28 H (1.4-6.9) x10^3/uL Basophils # 0.06 (0-0.4) x10^3/uL Sodium 138 (137-145) mmol/L Potassium 4.4 (3.5-5.1) mmol/L Chloride 107 (98-107) mmol/L Carbon Dioxide 21 L (22-30) mmol/L Anion Gap 14.0 (5-15) MEQ/L BUN 28 H (9-20) mg/dL Creatinine 1.74 H (0.66-1.25) mg/dL Estimated GFR 38.7 ML/MIN Glucose 225 H (74-106) mg/dL POC Glucometer 215 H (74 to 106) mg/dL Calcium 9.0 (8.4-10.2) mg/dL Total Bilirubin 0.80 (0.2-1.3) mg/dL AST 60 H (17-59) U/L ALT 29 (0-50) U/L Alkaline Phosphatase 77 (38-126) U/L Troponin I (0.000-0.034) ng/mL NT-Pro-B Natriuret Pep (<300) pg/mL Serum Total Protein 6.9 (6.3-8.2) g/dL Albumin 3.6 (3.5-5.0) g/dL Gastric Occult Blood (Negative) 04/14/23 Range/Units 12:03 WBC (4.0-10.5) x10^3/uL RBC (4.1-5.6) x10^6/uL Hgb (12.5-18.0) g/dL Hct (42-50) % MCV (78-100) fL MCH (26-32) pg MCHC (32-36) g/dL RDW (11.5-14.0) % Plt Count (150-450) x10^3/uL MPV (7.5-11.0) fL Gran % (36.0-66.0) % Immature Gran % (Auto) (0.00-0.4) % Nucleat RBC Rel Count (0.00-0.1) % Eos # (Auto) (0-0.5) x10^3/uL Immature Gran # (Auto) (0.00-0.03) x10^3u/L Absolute Lymphs (auto) (1.0-4.6) x10^3/uL Absolute Monos (auto) (0.0-1.3) x10^3/uL Absolute Nucleated RBC (0.00-0.01) x10^3u/L Lymphocytes % (24.0-44.0) % Monocytes % (0.0-12.0) % Eosinophils % (0.00-5.0) % Basophils % (0.0-0.4) % Absolute Granulocytes (1.4-6.9) x10^3/uL Basophils # (0-0.4) x10^3/uL Sodium (137-145) mmol/L Potassium (3.5-5.1) mmol/L Chloride (98-107) mmol/L Carbon Dioxide (22-30) mmol/L Anion Gap (5-15) MEQ/L BUN (9-20) mg/dL Creatinine (0.66-1.25) mg/dL Estimated GFR ML/MIN Glucose (74-106) mg/dL POC Glucometer 281 H (74 to 106) mg/dL Calcium (8.4-10.2) mg/dL Total Bilirubin (0.2-1.3) mg/dL AST (17-59) U/L ALT (0-50) U/L Alkaline Phosphatase (38-126) U/L Troponin I (0.000-0.034) ng/mL NT-Pro-B Natriuret Pep (<300) pg/mL Serum Total Protein (6.3-8.2) g/dL Albumin (3.5-5.0) g/dL Gastric Occult Blood (Negative) Radiology Exams: Radiology Procedures Category Date Time Status ECHO W/2D AND DOPPLER [US] Routine Exams 04/13/23 13:11 Taken KUB Stat Exams 04/14/23 07:50 Completed Multi-Disciplinary Progress Notes: Multi-Disciplinary Progress Notes 04/14/23 10:25 Case Management Note by Ann Marie Cox CASE MANAGEMENT AND DC PLANNING CONTINUES TO BE DEFERRED PATIENT WAITS FOR BED AT HIGHER LEVEL OF CARE Initialized on 04/14/23 10:25 - END OF NOTE Assessment/Plan (1) Acute respiratory failure with hypoxia Current Visit: Yes Status: Acute Assessment & Plan: Due to LLL PNA: Covid and flud are both negative, mono screen was positive. Rocephin and Azithromycin started. Cultures obtained. O2 protocol to keep O2 sat > 92%. RT on case, albuterol updraft scheduled and prn. Lasix for CHF component. Wean down and off O2 when able Code(s): J96.01 - ACUTE RESPIRATORY FAILURE WITH HYPOXIA (2) LLL pneumonia Current Visit: Yes Status: Acute Assessment & Plan: As above - Rocephin and Azithromycin started, cultures obtained 04/12: -Antibiotics changed to vanc/cefepime 04/13: WBC trending down, will continue on vanc/cefepime -Cultures pending, blood culture x 1 with gram + cocci in clusters Code(s): J18.9 - PNEUMONIA, UNSPECIFIED ORGANISM #elevated troponins -EKG as stated above, trops uptrending -Will consult cards, discussed with family transfer to higher level of care, they would like to remain at [facility] for now 04/13: -Trops uptrending now at 4.7, cardiology has been consulted with recs to add full dose lovenox as well as daily asa, patient to transfer to higher level of care when bed available 04/14: -Repeat trops, transfer still pending (3) Altered mental status Current Visit: Yes Status: Acute Assessment & Plan: Acute metabolic encephalopathy due to infectious cause and hypoxia. Treating PNA, and O2 protocol. Monitor progress. CT head senile changes, no acute finding. UA not remarkable 04/12: -Improved although still confused, will continue to treat pna 04/13: -A&O x 3 this morning 04/14: -Overnight events noted of confusion/combative behavior, A&O x 2 today Code(s): R41.82 - ALTERED MENTAL STATUS, UNSPECIFIED (4) Abdominal pain Current Visit: No Status: Acute Assessment & Plan: He was found to have abdominal distention, NGT placed and 1 L suctioned from stomach. Now on intermittent suction. CT abd pending. May need surgery input if not better in AM. NPO status due to this 04/13: -NG tube pulled out by patient, would like to hold replacing for now 04/14: -CLD started, KUB with no abnormalities Code(s): R10.9 - UNSPECIFIED ABDOMINAL PAIN (5) Hyperkalemia Current Visit: Yes Status: Acute Assessment & Plan: K was 5.4 -likely due to HELENE. Starting IVF, and this should help. Will repeat K in AM 04/12: -remains hyperkalemic, blood glucose levels also elevated, will treat Blood glucose and redraw bmp at noon 04/13: -Resolved Code(s): E87.5 - HYPERKALEMIA (6) Acute on chronic renal failure Current Visit: No Status: Acute Assessment & Plan: Cr 2.77, BUN 34. Has underlying CKD due to DM and HTN, but am unsure of his baseline. IVF started for NPO status. Dose all meds accordingly. Avoid IV contrast, NSAIDs and hypotension. Will monitor Cr trend 04/13: -Downtrending, near baseline (1.9-2.1) at 2.2 04/14: -Now at baseline Code(s): N17.9 - ACUTE KIDNEY FAILURE, UNSPECIFIED; N18.9 - CHRONIC KIDNEY DISEASE, UNSPECIFIED (7) CHF (congestive heart failure) Current Visit: Yes Status: Acute Assessment & Plan: BNP 844. Clinically SOB, and hypoxic. But could be due to PNA. On Lasix at home. I will continue Lasix 40mg IV daily here 04/13[place] [address], will continue lasix per cards Code(s): I50.9 - HEART FAILURE, UNSPECIFIED (8) Afib Current Visit: Yes Status: Acute Assessment & Plan: Chronic, HR controlled. I am holding Eliquis tonight due to abdominal distention and NPO status. Heparin for DVT prophylaxis. If abd is acute, may need surgery, so would hold Eliquis anyways. Once we cleared him, can resume Eliquis for AFib 04/14: -full dose lovenox per cards, patient did have some renal impairment on admission, GFR now >30 Code(s): I48.91 - UNSPECIFIED ATRIAL FIBRILLATION (9) Mononucleosis Current Visit: Yes Status: Acute Assessment & Plan: Supportive care Code(s): B27.90 - INFECTIOUS MONONUCLEOSIS, UNSPECIFIED WITHOUT COMPLICATION (10) Leukocytosis Current Visit: No Status: Acute Assessment & Plan: WBC 23.3. Likely due tp PNA. Treating this, and monitoring WBC trend. Lactic acid was not elevated 04/14: -Trending down, now at 15.6, will continue current regimen Code(s): D72.829 - ELEVATED WHITE BLOOD CELL COUNT, UNSPECIFIED Code(s): J96.01 - ACUTE RESPIRATORY FAILURE WITH HYPOXIA (2) Afib Current Visit: Yes Status: Acute Code(s): I48.91 - UNSPECIFIED ATRIAL FIBRILLATION (3) Altered mental status Current Visit: Yes Status: Acute Code(s): R41.82 - ALTERED MENTAL STATUS, UNSPECIFIED (4) CHF (congestive heart failure) Current Visit: Yes Status: Acute Code(s): I50.9 - HEART FAILURE, UNSPECIFIED (5) Hyperkalemia Current Visit: Yes Status: Acute Code(s): E87.5 - HYPERKALEMIA (6) LLL pneumonia Current Visit: Yes Status: Acute Code(s): J18.9 - PNEUMONIA, UNSPECIFIED ORGANISM (7) Mononucleosis Current Visit: Yes Status: Acute Code(s): B27.90 - INFECTIOUS MONONUCLEOSIS, UNSPECIFIED WITHOUT COMPLICATION (8) Abdominal pain Current Visit: No Status: Acute Code(s): R10.9 - UNSPECIFIED ABDOMINAL PAIN (9) Acute on chronic renal failure Current Visit: No Status: Acute Code(s): N17.9 - ACUTE KIDNEY FAILURE, UNSPECIFIED; N18.9 - CHRONIC KIDNEY DISEASE, UNSPECIFIED (10) Leukocytosis Current Visit: No Status: Acute Code(s): D72.829 - ELEVATED WHITE BLOOD CELL COUNT, UNSPECIFIED (11) Elevated troponin Current Visit: Yes Status: Acute Code(s): R79.89 - OTHER SPECIFIED ABNORMAL FINDINGS OF BLOOD CHEMISTRY
[2023-04-14] MEDS: Sodium Chloride 0.9% 1000 ML 1,000 ML IV SCH (12:54)
[2023-04-14] MEDS ORDERED: HUMALOG SQ PRN (15:09)
[2023-04-14] MEDS: HYDROCODONE-ACETAMIN 10-325 MG PO PRN (15:41)
[2023-04-14 16:26] VITALS: RESP 17; O2SAT 95
[2023-04-14 20:09] VITALS: BP 137/79; PULSE 106; TEMP 98.4
[2023-04-14] MEDS ORDERED: Lyrica 50MG PO SCH (22:00)
[2023-04-14] MEDS ORDERED: Lopressor 25MG Tab PO SCH (22:00)
[2023-04-15] MEDS ORDERED: TROUGH DRUG LEVELS IJ ONE (09:30)
[2023-04-15] MEDS ORDERED: NON-FORMULARY ITEM (Multivitamin [Multivitamins] 1 EACH Tablet) PO SCH (10:00)
[2023-04-15] MEDS ORDERED: NORVASC 5 MG PO SCH (10:00)
[2023-04-15] MEDS ORDERED: Flomax 0.4 MG PO SCH (10:00)
[2023-04-15] MEDS ORDERED: THERAGRAN MULTIVITAMIN PO SCH (10:00)
[2023-04-15] MEDS ORDERED: ZYLOPRIM 300 MG PO SCH (10:00)
--- NOTE | 2023-04-15 15:17 | PCM.DS ---
Discharge Summary Date of Admission: 04/11/23 21:33 Date of Discharge: 04/14/23 Admitting Physician: MIGUEL ROBLEDO DO Consults: Consults on Case 04/12/23 19:03 Consult Cardiology ROUTINE Primary Care Provider: JUMA LANE Allergies Allergies Iodinated Contrast Media [Iodinated Contrast Media - IV Dye] Allergy (Intermediate, Verified 04/11/23 18:41) unknown- hives morphine Allergy (Intermediate, Verified 04/11/23 18:41) confusion and combative hydromorphone HCl [From Dilaudid] Adverse Reaction (Intermediate, Verified 04/11/23 18:41) confusion and combative oxycodone HCl [From OxyContin] Adverse Reaction (Intermediate, Verified 04/11/23 18:41) confusion/ combative Hospital Summary - Hospital Course Hospital Course: is a 83 year old male with history of AFib, COPD, CHF, HTN, CAD s/p stents, HLP, DMII, GERD presented with AMS and SOB with hypoxia on RA. He apparently had a bronchoscopy done at an outside hospital today as a follow-up to an abnormal chest xray. Procedure was unremarkable, pt sent home. But later in the late afternoon, he became lethargic, altered and SOB. EMS was called and when they arrived, he was minimally responsive and O2 sat was found to be in the 80s on RA. Lasix, Duoneb and O2 was given, and he was brought into ER here. Patient admitted with severe dyspnea and hypoxia. He had bronchoscopy yesterday and symptoms started soon after that. On admission he had distended stomach with fluid retention. NG tube was placed. Strongly suspect aspiration pneumonia. For this reason, antibiotics were changed to Cefepime and Vanc. Patient had hyperka lemia that was corrected with insulin. Patient has acute on chronic renal failure.Troponins elevated. EKG shows no acute changes and patient has no chest pain. Elevated troponin may be related to renal insufficiency/pneumonia. Given the complex problems the patient has with elevated troponin, aspiration pneumonia, HELENE/CKD, diabetes and hyperkalemia, patient will transfer to a higher level of care at [facility] per family request. - Vitals & Intake/Output Vital Signs: Vital Signs Temperature 98.4 F 04/14/23 20:00 Pulse Rate 106 H 04/14/23 20:00 Respiratory Rate 17 04/14/23 20:00 Blood Pressure 137/79 04/14/23 20:00 O2 Sat by Pulse Oximetry 95 04/14/23 20:00 Oxygen-Last Documented O2 Percentage 3 Liters = 32% Intake & Output: Intake & Output 04/13/23 04/14/23 04/15/23 04/16/23 11:59 11:59 11:59 11:59 Intake Total 1902 820 460 Output Total 4588 5300 1000 Balance -2623 -4480 -540 Weight 90.7 kg - Lab Result Diagrams: 04/14/23 04:36 04/14/23 04:36 Lab Results-Last 24 Hrs: Lab Results-Last 24 Hours 04/14/23 04/14/23 Range/Units 16:48 20:54 POC Glucometer 247 H 271 H (74 to 106) mg/dL Micro Results-Entire Visit: Microbiology 04/11/23 18:40 Blood Culture - Preliminary Blood 04/11/23 18:43 Blood Culture Gram Stain - Preliminary Blood Blood Culture - Preliminary ADDITIONAL TESTING IS REQUIRED TO OBTAIN ID AND SENSITIVITY. SPECIMEN HAS BEEN SENT TO REFERENCE LAB, WITH FINAL RESULT EXPECTED WITHIN 96 HOURS. 04/11/23 18:35 Urine Culture - Final Catherized NO GROWTH Accuchecks Date 04/14/23 Time 16:51 - Radiology Exams Ordered Rad Exams-Entire Visit: Radiology Procedures Category Date Time Status KUB Stat Exams 04/14/23 07:50 Completed - Procedures and Test Procedures and Tests throughout Hospitalization: Therapy Orders & Screens 04/11/23 20:58 EKG REPEAT IN AM Comment: Oxygen Venti-Mask 40% Comment: Respiratory Therapy Consult ONCE Comment: Reason For Exam: 04/11/23 21:24 Respiratory Therapy Assessment DAILY Comment: Diagnosis: LLLpneumonia 04/11/23 21:42 BiPap/CPAP STAT Comment: Diagnosis: LLLpneumonia 04/12/23 07:31 EKG STAT Comment: Diagnosis: LLLpneumonia 04/13/23 05:00 EKG ROUTINE Comment: Diagnosis: LLLpneumonia Discharge Exam General Appearance: no apparent distress Neurologic Exam: alert Eye Exam: PERRL Ears, Nose, Throat Exam: dry mucous membranes Neck Exam: normal inspection Respiratory Exam: crackles/rales, wheezing Cardiovascular Exam: tachycardia Gastrointestinal/Abdomen Exam: soft, normal bowel sounds Male Genitalia Exam: deferred Rectal Exam: deferred Back Exam: normal inspection Extremity Exam: normal inspection Skin Exam: normal color Final Diagnosis/Problem List - Final Discharge Diagnosis/Problem (1) Acute respiratory failure with hypoxia Status: Acute Code(s): J96.01 - ACUTE RESPIRATORY FAILURE WITH HYPOXIA (2) Afib Status: Acute Code(s): I48.91 - UNSPECIFIED ATRIAL FIBRILLATION (3) Altered mental status Status: Acute Code(s): R41.82 - ALTERED MENTAL STATUS, UNSPECIFIED (4) CHF (congestive heart failure) Status: Acute Code(s): I50.9 - HEART FAILURE, UNSPECIFIED (5) Hyperkalemia Status: Acute Code(s): E87.5 - HYPERKALEMIA (6) LLL pneumonia Status: Acute Code(s): J18.9 - PNEUMONIA, UNSPECIFIED ORGANISM (7) Mononucleosis Status: Acute Code(s): B27.90 - INFECTIOUS MONONUCLEOSIS, UNSPECIFIED WITHOUT COMPLICATION (8) Abdominal pain Status: Acute Code(s): R10.9 - UNSPECIFIED ABDOMINAL PAIN (9) Acute on chronic renal failure Status: Acute Code(s): N17.9 - ACUTE KIDNEY FAILURE, UNSPECIFIED; N18.9 - CHRONIC KIDNEY DISEASE, UNSPECIFIED (10) Leukocytosis Status: Acute Code(s): D72.829 - ELEVATED WHITE BLOOD CELL COUNT, UNSPECIFIED (11) Elevated troponin Status: Acute Code(s): R79.89 - OTHER SPECIFIED ABNORMAL FINDINGS OF BLOOD CHEMISTRY - Discharge Disposition: XFER OTHER Condition: Fair Prescriptions: No Action Multivitamin [Multivitamins] 1 tab PO DAILY Metoprolol Tartrate 25 mg [Lopressor 25MG Tab] 25 mg PO BID Hydrocodone/Acetaminophen [Hydrocodone-Acetamin 10-325 mg] 1 tab PO Q6HPRN PRN PRN Reason: Pain Amlodipine Besylate 5 mg [Norvasc 5 mg] 10 mg PO DAILY Apixaban [Eliquis 5 mg Tablet] 5 mg PO BID Methylphenidate 5 mg [Ritalin 5 MG] 20 mg PO QAM Tamsulosin HCl 0.4 mg [Flomax 0.4 MG] 0.4 mg PO DAILY Omeprazole 40 mg PO DAILY Pregabalin 50 mg [Lyrica 50MG] 150 mg PO BID Albuterol 2.5 mg/3 ml Neb [Proventil 2.5 mg/3 ml Neb] 1 neb IH DAILY PRN PRN PRN Reason: Shortness Of Breath Sucralfate 1 gm [Carafate 1 GM] 1 gm PO QID Ferrous Sulfate 325 mg [Feosol 325 mg] 325 mg PO DAILY Dapagliflozin Propanediol [Farxiga] 10 mg PO DAILY Furosemide 20 mg [Lasix 20 mg] 20 mg PO DAILY Nitroglycerin 0.4 mg Tablet [Nitrostat 0.4 MG Tablet] 0.4 mg SL UD Allopurinol 300 mg [Zyloprim 300 mg] 1 tab PO DAILY Methylphenidate 5 mg [Ritalin 5 MG] 10 mg PO LUNCH Isosorbide Mononitrate 30 mg [Imdur 30 MG] 30 mg PO DAILY Metformin HCl 500 mg [Glucophage 500 MG] 1,000 mg PO BIDWM Insulin Glargine/Lixisenatide [Soliqua 100 Unit-33 Mcg/ml Pen] 20 units SQ DAILY Insulin Regular, Human [Novolin R] 100 unit SQ UD Bimatoprost 0.01% [Lumigan 0.01% 2.5 ml] 2.5 ml OP HS Albuterol/Ipratropium 3ml Neb* [DUONEB 0.5-3 MG/3 ml Neb] 3 ml IH QID PRN PRN Reason: Shortness Of Breath Follow up with: JUMA LANE [Primary Care Provider] -
--- NOTE | 2023-04-18 11:48 | ECHO ---
DATE OF PROCEDURE: 04/13/2023 CLINICAL INFORMATION: Elevated troponin level. The M-mode 2D, and Doppler echocardiogram including color flow Doppler shows the heart rate is 103 beats/minute. The left ventricle is normal in size. There is mild to moderate hypertrophy of the left ventricular posterior wall. There is normal contractility of the left ventricle. The ejection fraction is calculated to be 72%. The right ventricle is not well visualized. The left atrium is mildly dilated. The interatrial septum is intact. The right atrium is normal. The aortic valve opens well. It is trileaflet. It is sclerotic. There is mitral valve leaflet thickening associated with mild mitral regurgitation. There is mild tricuspid regurgitation. The right ventricular systolic pressure is calculated to be 35 mm of Mercury. The pulmonic valve is not well visualized. There is mild pulmonic regurgitation. The aortic root is normal. There is no pericardial effusion present. IMPRESSION: 1) NORMAL CONTRACTILITY OF THE LEFT VENTRICLE. 2) MILD ASYMMETRIC LEFT VENTRICULAR HYPERTROPHY INVOLVING THE LEFT VENTRICULAR POSTERIOR WALL. 3) MILD LEFT ATRIAL DILATATION. 4) MILD MITRAL REGURGITATION. 5) MILD TRICUSPID REGURGITATION. 6) MILD PULMONARY HYPERTENSION. 7) MILD PULMONIC REGURGITATION.
== END 2023-04-14 21:15 | DRG 189 ==
LOC: ED 18:20 → ICU 21:33
PROVIDERS: ADMIT Internal Medicine; ATTEND Internal Medicine
DX: J96.01 Acute respiratory failure with hypoxia (principal); J18.9 Pneumonia, unspecified organism; N17.9 Acute kidney failure, unspecified; I13.0 Hypertensive heart and chronic kidney disease with heart failure and stage 1 through stage 4 chronic kidney disease, or unspecified chronic kidney disease; R41.82 Altered mental status, unspecified; R10.9 Unspecified abdominal pain; E87.5 Hyperkalemia; E11.22 Type 2 diabetes mellitus with diabetic chronic kidney disease; N18.9 Chronic kidney disease, unspecified; I50.9 Heart failure, unspecified; I48.91 Unspecified atrial fibrillation; B27.90 Infectious mononucleosis, unspecified without complication; D72.829 Elevated white blood cell count, unspecified; R79.89 Other specified abnormal findings of blood chemistry; J44.9 Chronic obstructive pulmonary disease, unspecified; I25.10 Atherosclerotic heart disease of native coronary artery without angina pectoris; I25.2 Old myocardial infarction; Z79.01 Long term (current) use of anticoagulants; Z79.899 Other long term (current) drug therapy; Z20.828 Contact with and (suspected) exposure to other viral communicable diseases; Z48.813 Encounter for surgical aftercare following surgery on the respiratory system; Z86.16 Personal history of COVID-19; Z95.1 Presence of aortocoronary bypass graft
CPT/HCPCS: 0241U; 36000; 36415; 36600; 51702; 70450; 71250; 74018; 74176; 80048; 80053; 81001; 82140; 82150; 82271; 82375; 82803; 82947; 83605; 83690; 83880; 84484; 85025; 86308; 87040; 87077; 87086; 87651; 93005; 93306; 94002; 94640; 96360; 99285; 99291; J0456; J0692; J0696; J1630; J1644; J1650; J1817; J1940; J7609; Q3014; A9270-GY; J3370

== ENCOUNTER 2023-05-27 13:56 | Observation (INO) | payer MEDICARE ==
[2023-05-27] MEDS ORDERED: Sodium Chloride 0.9% 1000 ML 1,000 ML IV STA (14:02)
[2023-05-27] MEDS ORDERED: Sodium Chloride 0.9% 1000 ML 1,000 ML ONE (14:13)
[2023-05-27 14:23] LABS: Absolute Neutrophil Ct (ANC) 6.73 x10^3/uL (1.4-6.9); BASOPHIL % 1.7 % (0.0-0.4); Basophil (Absolute #) 0.16 x10^3/uL (0-0.4); Eosinophil % 5.4 % (0.00-5.0); Eosinophil (Absolute #) 0.51 x10^3/uL (0-0.5); Hematocrit 35.3 % (42-50); Hemoglobin 10.8 g/dL (12.5-18.0); IMMATURE GRAN # 0.06 x10^3u/L (0.00-0.03); IMMATURE GRAN % 0.6 % (0.00-0.4); Lymphocyte (Absolute #) 1.62 x10^3/uL (1.0-4.6); Mean Cell Volume 89.1 fL (78-100); Mean Corpuscular Hemoglobin 27.3 pg (26-32); Mean Corpuscular Hgb Concent. 30.6 g/dL (32-36); Mean Platelet Volume 11.9 fL (7.5-11.0); Monocyte (Absolute #) 0.43 x10^3/uL (0.0-1.3); Monocytes % 4.5 % (0.0-12.0); Neutrophil % 70.8 % (36.0-66.0); Platelet Count 161 x10^3/uL (150-450); Red Blood Count 3.96 x10^6/uL (4.1-5.6); Red Cell Distribution Width 16.1 % (11.5-14.0); White Blood Count 9.5 x10^3/uL (4.0-10.5)
[2023-05-27 14:37] LABS: INR 0.94 (0.8-3.0); PROTIME 10.3 SECONDS (9.4-12.5); PTT 28.2 SECONDS (25.1-36.5)
--- NOTE | 2023-05-27 14:43 | XRAY ---
Indication: Lethargy. Multiple contiguous axial images obtained through the head without contrast. Comparison: April 11, 2023 Again age-appropriate global atrophy, moderate periventricular degenerative micro-ischemia bilaterally, and remote lacunar infarct right external capsule. No acute intracranial hemorrhage, abnormal extra axial fluid collection, or mass effect. Fourth ventricle is midline without hydrocephalus. Bony calvarium intact. Visualized paranasal sinuses and mastoid air cells are clear. 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
--- NOTE | 2023-05-27 14:43 | XRAY ---
Indication: Pain. No known injury. Comparison: None 3 view right hand demonstrates osteopenia, mild/moderate degenerative changes all IP joints greatest 2nd PIP, old 5th metacarpal fracture, radiocarpal joint space narrowing, and extensive scattered vascular calcifications. No other bony, articular, or soft tissue abnormalities.
--- NOTE | 2023-05-27 14:49 | XRAY ---
Indication: Lethargy. Multiple contiguous axial images obtained through the chest without contrast. Comparison: April 11, 2023. Again respiration artifact limits exam. Mild bilateral dependent atelectasis greatest in both lung bases. Previous left lower lobe airspace disease has cleared. Again chronic findings including mild pulmonary emphysema, lingula subsegmental atelectasis/scarring, and a few tiny bilateral calcified granulomas. No suspicious pulmonary mass/nodule, infiltrate, or effusion. Heart remains enlarged again with CABG. Aorta again moderately arteriosclerotic without aneurysm. Stable chunky subcarinal and bilateral hilar calcified nodes. No pathologic mediastinal lymphadenopathy. Bony thorax intact again with osteopenia, mild multilevel degenerative changes throughout spine, and sternotomy wires. Limited upper abdomen again demonstrate splenic calcified granulomas and cholecystectomy clips. Impression: 1. Again respiration artifact. 2. Chronic findings including pulmonary emphysema, scattered atelectasis/scarring, cardiomegaly, arteriosclerotic disease, chronic bony findings, and old granulomatous disease. 2. No new/acute findings on this noncontrast exam.
[2023-05-27 14:54] LABS: INFLUENZA A NEGATIVE (NEGATIVE); INFLUENZA B NEGATIVE (NEGATIVE); RESPIRATORY SYNCTIAL VIRUS NEGATIVE (NEGATIVE); SARS-CoV-2 Xpert Express NEGATIVE (NEGATIVE)
[2023-05-27 15:27] LABS: ALBUMIN 3.9 g/dL (3.5-5.0); ALKALINE PHOSPHATASE 61 U/L (38-126); ANION GAP 12.5 MEQ/L (5-15); BLOOD UREA NITROGEN 39 mg/dL (9-20); CHLORIDE 110 mmol/L (98-107); Calcium 10.4 mg/dL (8.4-10.2); Carbon Dioxide 25 mmol/L (22-30); Creatinine 1 2.51 mg/dL (0.66-1.25); EST GLOMERULAR FILTRATION RATE 24.9 ML/MIN; ETHYL ALCOHOL < 10 mg/dL (0-10); Glucose 109 mg/dL (74-106); MAGNESIUM 2.1 mg/dL (1.6-2.3); NT PRO BNPII 955 pg/mL (<300); Potassium 4.2 mmol/L (3.5-5.1); SGOT/AST 27 U/L (17-59); SGPT/ALT 15 U/L (0-50); SODIUM 143 mmol/L (137-145); Total Protein 7.3 g/dL (6.3-8.2)
--- NOTE | 2023-05-27 15:56 | ERPHSYRPT ---
- History of Present Illness Source: patient, EMS Exam Limitations: clinical condition Patient Subjective Stated Complaint: Patient is confused and unaware of why he is in the ER. Family c/o patient being lethargic today and "unable to stay awake." They also report home pulse oximeter of reading low 02 saturation today of 77%. Triage Nursing Assessment: Patient arrived in ER by ambulance. He is drowsy. Oral mucosa dry. He is confused; unable to state where he is, why he is here, his date of , his age, the president, or his 's name. He answers most questions with the statement of "I don't know." NO SOB. Denies pain and shows no s/s of pain except when touching patient's right hand. Patient displays s/s of pain when touching or moving right hand stating for staff to leave it alone. Abdomen is distended but non-tender. 1+ pitting edema present to RLE and 3+ pitting edema present to LLE. Slight left facial droop. Physician History: Patient is an 83-year-old gentleman who was become confused over the last 24 hours. Patient lethargic and orient x 0 upon arrival, but after IV access was obtained and some fluids were given, patient came is slightly more alert and oriented to name and place. There is no focal weakness. History from patient's daughter. He was seen by his PCP yesterday. Daughter states that patient has had no fever, no cough, no nausea, no vomiting, no diarrhea, no chest pain, no abdominal pain, and no new focal weakness. Timing/Duration: other (Symptoms developed last night or earlier today.) Severity: moderate Character of Deficits: other (Lethargy) Baseline/Normal Cognition: alert oriented x 3 Allergies/Adverse Reactions: Iodinated Contrast Media [Iodinated Contrast Media - IV Dye] Allergy (Intermediate, Verified 05/27/23 14:50) unknown- hives morphine Allergy (Intermediate, Verified 05/27/23 14:50) confusion and combative hydromorphone HCl [From Dilaudid] Adverse Reaction (Intermediate, Verified 05/27/23 14:50) confusion and combative oxycodone HCl [From OxyContin] Adverse Reaction (Intermediate, Verified 05/27/23 14:50) confusion/ combative Home Medications: Amlodipine Besylate 5 mg [Norvasc 5 mg] 10 mg PO DAILY 05/16/22 [History] Apixaban [Eliquis 5 mg Tablet] 5 mg PO BID 05/16/22 [History] Hydrocodone/Acetaminophen [Hydrocodone-Acetamin 10-325 mg] 1 tab PO Q6HPRN PRN 05/16/22 [History] Methylphenidate 5 mg [Ritalin 5 MG] 20 mg PO QAM 05/16/22 [History] Metoprolol Tartrate 25 mg [Lopressor 25MG Tab] 50 mg PO BID 05/16/22 [History] Multivitamin [Multivitamins] 1 tab PO DAILY 05/16/22 [History] Pregabalin 50 mg [Lyrica 50MG] 150 mg PO BID 05/16/22 [History] Tamsulosin HCl 0.4 mg [Flomax 0.4 MG] 0.4 mg PO DAILY 05/16/22 [History] Albuterol 2.5 mg/3 ml Neb [Proventil 2.5 mg/3 ml Neb] 1 neb IH DAILY PRN PRN 07/08/22 [History] Dapagliflozin Propanediol [Farxiga] 10 mg PO DAILY 01/08/23 [History] Ferrous Sulfate 325 mg [Feosol 325 mg] 325 mg PO DAILY 01/08/23 [History] Furosemide 20 mg [Lasix 20 mg] 40 mg PO BID 01/08/23 [History] Nitroglycerin 0.4 mg Tablet [Nitrostat 0.4 MG Tablet] 0.4 mg SL UD 01/08/23 [History] Sucralfate 1 gm [Carafate 1 GM] 1 gm PO QID 01/08/23 [History] Allopurinol 300 mg [Zyloprim 300 mg] 1 tab PO DAILY 02/12/23 [History] Isosorbide Mononitrate 30 mg [Imdur 30 MG] 60 mg PO DAILY 03/07/23 [Histor y] Albuterol/Ipratropium 3ml Neb* [DUONEB 0.5-3 MG/3 ml Neb] 3 ml IH QID PRN 04/11/23 [History] Bimatoprost 0.01% [Lumigan 0.01% 2.5 ml] 1 drop OP HS 04/11/23 [History] Insulin Glargine/Lixisenatide [Soliqua 100 Unit-33 Mcg/ml Pen] 30 units SQ DAILY 04/11/23 [History] Insulin Regular, Human [Novolin R] 6 unit SQ UD 04/11/23 [History] Metformin HCl 500 mg [Glucophage 500 MG] 1,000 mg PO BIDWM 04/11/23 [History] Mecobalamin [B12 Active] 1 tab PO CLARIFY 05/27/23 [History] Methylphenidate 5 mg [Ritalin 5 MG] 10 mg PO LUNCH 05/27/23 [History] PANTOPRAZOLE 40 mg Tablet [Protonix 40MG Tablet] 1 tab PO DAILY 05/27/23 [History] Hx Tetanus, Diphtheria Vaccination/Date Given: Yes Hx Influenza Vaccination/Date Given: Yes Hx Pneumococcal Vaccination/Date Given: Yes Immunizations Up to Date: Yes Travel Risk - International Travel Have you traveled outside of the country in past 3 weeks: No - Coronavirus Screening Are you exhibiting any of the following symptoms?: Yes Symptoms: Cough: New Onset Close contact with a COVID-19 positive Pt in past 14-21 Days: No - Vaccine Status Have you recieved a Covid-19 vaccination: No - Review of Systems All Other Systems: Unable due to condition - Past Medical History Pertinent Past Medical History: Yes Neurological History: No Pertinent History ENT History: Cataracts, Glaucoma Cardiac History: Hypertension, Myocardial Infarction (PR), Other Respiratory History: Asthma, COPD, Other Endocrine Medical History: Diabetes Type II Musculoskeletal History: Fractures GI Medical History: GERD, Gallbladder Disease History: Other Psycho-Social History: Depression Male Reproductive Disorders: Prostate Problems Other Medical History: COVID-19, L Wrist Fracture (1982), Open Heart Surgery (1993), LE fracture (unable to recall which side, 1959's), Low Back Pain, LB surgery (1994 with rods placed) - Past Surgical History Past Surgical History: Yes Neuro Surgical History: No Pertinent History Cardiac: CABG, Cardiac Catheterization, Cardiac Stent Respiratory: Chest Surgery Gastrointestinal: Appendectomy, Cholecystectomy Genitourinary: No Pertinent History Musculoskeletal: Orthopedic Surgery Male Surgical History: No Pertinent History Other Surgical History: back surgery, fem pop, steriod injection in various joints, carpal tunnel surgery - Social History Smoking Status: Never smoker How long have you smoked: 1975 Exposure to second hand smoke: No Drug Use: none Patient Lives Alone: No () Significant Family History: no pertinent family hx - Nursing Vital Signs Nursing Vital Signs: Initial Vital Signs Temperature 97.5 F 05/27/23 13:56 Pulse Rate 76 05/27/23 13:56 Respiratory Rate 16 05/27/23 13:56 Blood Pressure 163/68 05/27/23 13:56 O2 Sat by Pulse Oximetry 94 L 05/27/23 13:56 Pain Scale Pain Intensity 0 Hypertensive/borderline sats - [place] Com[place] Scale Best Eye Response ([place]): (4) open spontaneously Best Verbal Response ([place]): (4) confused conversation Best Motor Response ([place]): (6) obeys commands [place] Total: 14 - Physical Exam General Appearance: no apparent distress, lethargy Eye Exam: bilateral eye: normal inspection, PERRL, EOMI Ears, Nose, Throat Exam: dry mucous membranes Neck Exam: normal inspection, non-tender Cardiovascular: other (Regular rate rhythm with 2/6 systolic ejection murmur) Gastrointestinal: soft (Good bowel sounds, soft, nontender to palpation) Back Exam: normal inspection, normal range of motion Extremity Exam: other (1+ pretibial edema bilaterally) 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 Exam: PERRL, No facial asymmetry, No facial droop Motor/Sensory: no motor deficit DTR: bicep (R): 2+, bicep (L): 2+ Skin Exam: normal color, warm, dry SpO2 Interpretation: normal SpO2: 96 O2 Delivery: Room Air - Course Nursing assessment & vital signs reviewed: Yes - CT Exams Head CT Interpretation: Discussed w/radiologist (Remote lacunar infarct otherwise nothing acute) Chest CT Interpretation: Discussed w/radiologist (COPD/atelectasis /cardiomegaly/arteriosclerotic disease/nothing acute) Ordered Tests: Active Orders 24 hr Category Date Time Status IV Insertion STAT Care 05/27/23 14:02 Active CHEST WITHOUT CONTRAST [CT] Stat Exams 05/27/23 14:04 Completed HAND (MINIMUM 3 VIEWS) Stat Exams 05/27/23 14:07 Completed HEAD WITHOUT CONTRAST [CT] Stat Exams 05/27/23 14:04 Completed ABG [ARTERIAL BLOOD GASES] Stat Lab 05/27/23 17:25 Completed CBC W DIFF Stat Lab 05/27/23 14:00 Completed CMP Stat Lab 05/27/23 14:00 Completed ETHYL ALCOHOL Stat Lab 05/27/23 14:00 Completed Lactic Acid Stat Lab 05/27/23 14:02 Completed MAGNESIUM Stat Lab 05/27/23 14:00 Completed NT PRO BNPII Stat Lab 05/27/23 14:00 Completed PROTIME WITH INR Stat Lab 05/27/23 14:00 Completed PTT Stat Lab 05/27/23 14:00 Completed TROPONIN Q4H Lab 05/27/23 14:00 Completed TROPONIN Q4H Lab 05/27/23 18:15 Completed TROPONIN Q4H Lab 05/27/23 22:15 Ordered UA W/RFX UR CULTURE Stat Lab 05/27/23 16:54 Completed Medication Summary Discontinued Medications Generic Name Dose Route Start Last Admin Trade Name Efraínq PRN Reason Stop Dose Admin Sodium Chloride 1,000 mls @ 999 mls/hr 05/27/23 14:02 05/27/23 15:21 Sodium Chloride 0.9% 1000 Ml IV 05/27/23 15:02 Infused .Q1H1M STA Infusion Sodium Chloride Confirm 05/27/23 14:13 Sodium Chloride 0.9% 1000 Ml Administered 05/27/23 14:14 Dose 1,000 mls @ ud .ROUTE .STK-MED ONE Lab/Rad Data: Laboratory Result Diagrams 05/27/23 14:00 05/27/23 14:00 Laboratory Results 05/27/23 05/27/23 05/27/23 Range/Units Unknown 18:15 17:25 WBC (4.0-10.5) x10^3/uL RBC (4.1-5.6) x10^6/uL Hgb (12.5-18.0) g/dL Hct (42-50) % MCV (78-100) fL MCH (26-32) pg MCHC (32-36) g/dL RDW (11.5-14.0) % Plt Count (150-450) x10^3/uL MPV (7.5-11.0) fL Gran % (36.0-66.0) % Immature Gran % (Auto) (0.00-0.4) % Nucleat RBC Rel Count (0.00-0.1) % Eos # (Auto) (0-0.5) x10^3/uL Immature Gran # (Auto) (0.00-0.03) x10^3u/L Absolute Lymphs (auto) (1.0-4.6) x10^3/uL Absolute Monos (auto) (0.0-1.3) x10^3/uL Absolute Nucleated RBC (0.00-0.01) x10^3u/L Lymphocytes % (24.0-44.0) % Monocytes % (0.0-12.0) % Eosinophils % (0.00-5.0) % Basophils % (0.0-0.4) % Absolute Granulocytes (1.4-6.9) x10^3/uL Basophils # (0-0.4) x10^3/uL PT (9.4-12.5) SECONDS INR (0.8-3.0) APTT (25.1-36.5) SECONDS Puncture Site LEFT RADIAL pCO2 38 (35-45) mmHg pO2 49 L* (75-100) mmHg Base Excess 3.8 H (-2.0-2.0) O2 Saturation 82.1 L (94-100) g/dF ABG pH 7.47 H (7.35-7.45) ABG HCO3 27.7 (22-28) ABG O2 Sat (Measured) 83.0 L (95-100) % Devin Test YES A-a Gradient 53 a/A Ratio 0.48 Hemoglobin 10.9 Carboxyhemoglobin 1.1 (0.0-6.9) % THgb Methemoglobin 0.0 L (1.4-1.5) % Temperature 37.0 C POC O2 Flow Rate 21 % Sodium (137-145) mmol/L Potassium 4.1 (3.5-5.1) mmol/L Chloride (98-107) mmol/L Carbon Dioxide (22-30) mmol/L Anion Gap (5-15) MEQ/L BUN (9-20) mg/dL Creatinine (0.66-1.25) mg/dL Estimated GFR ML/MIN Glucose (74-106) mg/dL Lactic Acid (0.4-2.0) Calcium (8.4-10.2) mg/dL Magnesium (1.6-2.3) mg/dL Total Bilirubin (0.2-1.3) mg/dL AST (17-59) U/L ALT (0-50) U/L Alkaline Phosphatase (38-126) U/L Ammonia < 9 L (9-30) umol/L Troponin I 0.013 (0.000-0.034) ng/mL NT-Pro-B Natriuret Pep (<300) pg/mL Serum Total Protein (6.3-8.2) g/dL Albumin (3.5-5.0) g/dL Urine Color (Yellow) Urine Appearance (Clear) Urine pH (4.6-8.0) Ur Specific [place] (1.005-1.030) Urine Protein (Negative) Urine Glucose (UA) (Negative) mg/dL Urine Ketones (Negative) Urine Blood (Negative) Urine Nitrite (Negative) Urine Bilirubin (Negative) Urine Urobilinogen (0.2) mg/dL Ur Leukocyte Esterase (Negative) U Hyaline Cast (Auto) (0-2) /LPF Urine Microscopic RBC (0-5) /HPF Urine Microscopic WBC (0-5) /HPF Ur Epithelial Cells (None Seen) /HPF Urine Bacteria (None Seen) /HPF Urine Culture Reflexed (NO) Ethyl Alcohol (0-10) mg/dL Influenza Type A Ag (NEGATIVE) Influenza Type B Ag (NEGATIVE) RSV (PCR) (NEGATIVE) SARS-CoV-2 (PCR) (NEGATIVE) 05/27/23 05/27/23 05/27/23 Range/Units 16:54 14:15 14:02 WBC (4.0-10.5) x10^3/uL RBC (4.1-5.6) x10^6/uL Hgb (12.5-18.0) g/dL Hct (42-50) % MCV (78-100) fL MCH (26-32) pg MCHC (32-36) g/dL RDW (11.5-14.0) % Plt Count (150-450) x10^3/uL MPV (7.5-11.0) fL Gran % (36.0-66.0) % Immature Gran % (Auto) (0.00-0.4) % Nucleat RBC Rel Count (0.00-0.1) % Eos # (Auto) (0-0.5) x10^3/uL Immature Gran # (Auto) (0.00-0.03) x10^3u/L Absolute Lymphs (auto) (1.0-4.6) x10^3/uL Absolute Monos (auto) (0.0-1.3) x10^3/uL Absolute Nucleated RBC (0.00-0.01) x10^3u/L Lymphocytes % (24.0-44.0) % Monocytes % (0.0-12.0) % Eosinophils % (0.00-5.0) % Basophils % (0.0-0.4) % Absolute Granulocytes (1.4-6.9) x10^3/uL Basophils # (0-0.4) x10^3/uL PT (9.4-12.5) SECONDS INR (0.8-3.0) APTT (25.1-36.5) SECONDS Puncture Site pCO2 (35-45) mmHg pO2 (75-100) mmHg Base Excess (-2.0-2.0) O2 Saturation (94-100) g/dF ABG pH (7.35-7.45) ABG HCO3 (22-28) ABG O2 Sat (Measured) (95-100) % Devin Test A-a Gradient a/A Ratio Hemoglobin Carboxyhemoglobin (0.0-6.9) % THgb Methemoglobin (1.4-1.5) % Temperature C POC O2 Flow Rate % Sodium (137-145) mmol/L Potassium (3.5-5.1) mmol/L Chloride (98-107) mmol/L Carbon Dioxide (22-30) mmol/L Anion Gap (5-15) MEQ/L BUN (9-20) mg/dL Creatinine (0.66-1.25) mg/dL Estimated GFR ML/MIN Glucose (74-106) mg/dL Lactic Acid 0.7 (0.4-2.0) Calcium (8.4-10.2) mg/dL Magnesium (1.6-2.3) mg/dL Total Bilirubin (0.2-1.3) mg/dL AST (17-59) U/L ALT (0-50) U/L Alkaline Phosphatase (38-126) U/L Ammonia (9-30) umol/L Troponin I (0.000-0.034) ng/mL NT-Pro-B Natriuret Pep (<300) pg/mL Serum Total Protein (6.3-8.2) g/dL Albumin (3.5-5.0) g/dL Urine Color Yellow (Yellow) Urine Appearance Clear (Clear) Urine pH 6.0 (4.6-8.0) Ur Specific [place] 1.015 (1.005-1.030) Urine Protein 100 A (Negative) Urine Glucose (UA) >=1000 A (Negative) mg/dL Urine Ketones Negative (Negative) Urine Blood Negative (Negative) Urine Nitrite Negative (Negative) Urine Bilirubin Negative (Negative) Urine Urobilinogen 0.2 (0.2) mg/dL Ur Leukocyte Esterase Negative (Negative) U Hyaline Cast (Auto) NONE SEEN (0-2) /LPF Urine Microscopic RBC 0-2 (0-5) /HPF Urine Microscopic WBC 0-2 (0-5) /HPF Ur Epithelial Cells None Seen (None Seen) /HPF Urine Bacteria None Seen (None Seen) /HPF Urine Culture Reflexed NO (NO) Ethyl Alcohol (0-10) mg/dL Influenza Type A Ag NEGATIVE (NEGATIVE) Influenza Type B Ag NEGATIVE (NEGATIVE) RSV (PCR) NEGATIVE (NEGATIVE) SARS-CoV-2 (PCR) NEGATIVE (NEGATIVE) 05/27/23 05/27/23 05/27/23 Range/Units 14:00 14:00 14:00 WBC (4.0-10.5) x10^3/uL RBC (4.1-5.6) x10^6/uL Hgb (12.5-18.0) g/dL Hct (42-50) % MCV (78-100) fL MCH (26-32) pg MCHC (32-36) g/dL RDW (11.5-14.0) % Plt Count (150-450) x10^3/uL MPV (7.5-11.0) fL Gran % (36.0-66.0) % Immature Gran % (Auto) (0.00-0.4) % Nucleat RBC Rel Count (0.00-0.1) % Eos # (Auto) (0-0.5) x10^3/uL Immature Gran # (Auto) (0.00-0.03) x10^3u/L Absolute Lymphs (auto) (1.0-4.6) x10^3/uL Absolute Monos (auto) (0.0-1.3) x10^3/uL Absolute Nucleated RBC (0.00-0.01) x10^3u/L Lymphocytes % (24.0-44.0) % Monocytes % (0.0-12.0) % Eosinophils % (0.00-5.0) % Basophils % (0.0-0.4) % Absolute Granulocytes (1.4-6.9) x10^3/uL Basophils # (0-0.4) x10^3/uL PT 10.3 (9.4-12.5) SECONDS INR 0.94 (0.8-3.0) APTT 28.2 (25.1-36.5) SECONDS Puncture Site pCO2 (35-45) mmHg pO2 (75-100) mmHg Base Excess (-2.0-2.0) O2 Saturation (94-100) g/dF ABG pH (7.35-7.45) ABG HCO3 (22-28) ABG O2 Sat (Measured) (95-100) % Devin Test A-a Gradient a/A Ratio Hemoglobin Carboxyhemoglobin (0.0-6.9) % THgb Methemoglobin (1.4-1.5) % Temperature C POC O2 Flow Rate % Sodium 143 (137-145) mmol/L Potassium 4.2 (3.5-5.1) mmol/L Chloride 110 H (98-107) mmol/L Carbon Dioxide 25 (22-30) mmol/L Anion Gap 12.5 (5-15) MEQ/L BUN 39 H (9-20) mg/dL Creatinine 2.51 H (0.66-1.25) mg/dL Estimated GFR 24.9 ML/MIN Glucose 109 H (74-106) mg/dL Lactic Acid (0.4-2.0) Calcium 10.4 H (8.4-10.2) mg/dL Magnesium 2.1 (1.6-2.3) mg/dL Total Bilirubin 0.30 (0.2-1.3) mg/dL AST 27 (17-59) U/L ALT 15 (0-50) U/L Alkaline Phosphatase 61 (38-126) U/L Ammonia (9-30) umol/L Troponin I 0.012 (0.000-0.034) ng/mL NT-Pro-B Natriuret Pep 955 (<300) pg/mL Serum Total Protein 7.3 (6.3-8.2) g/dL Albumin 3.9 (3.5-5.0) g/dL Urine Color (Yellow) Urine Appearance (Clear) Urine pH (4.6-8.0) Ur Specific [place] (1.005-1.030) Urine Protein (Negative) Urine Glucose (UA) (Negative) mg/dL Urine Ketones (Negative) Urine Blood (Negative) Urine Nitrite (Negative) Urine Bilirubin (Negative) Urine Urobilinogen (0.2) mg/dL Ur Leukocyte Esterase (Negative) U Hyaline Cast (Auto) (0-2) /LPF Urine Microscopic RBC (0-5) /HPF Urine Microscopic WBC (0-5) /HPF Ur Epithelial Cells (None Seen) /HPF Urine Bacteria (None Seen) /HPF Urine Culture Reflexed (NO) Ethyl Alcohol < 10 (0-10) mg/dL Influenza Type A Ag (NEGATIVE) Influenza Type B Ag (NEGATIVE) RSV (PCR) (NEGATIVE) SARS-CoV-2 (PCR) (NEGATIVE) 05/27/23 Range/Units 14:00 WBC 9.5 (4.0-10.5) x10^3/uL RBC 3.96 L (4.1-5.6) x10^6/uL Hgb 10.8 L (12.5-18.0) g/dL Hct 35.3 L (42-50) % MCV 89.1 (78-100) fL MCH 27.3 (26-32) pg MCHC 30.6 L (32-36) g/dL RDW 16.1 H (11.5-14.0) % Plt Count 161 (150-450) x10^3/uL MPV 11.9 H (7.5-11.0) fL Gran % 70.8 H (36.0-66.0) % Immature Gran % (Auto) 0.6 H (0.00-0.4) % Nucleat RBC Rel Count 0.0 (0.00-0.1) % Eos # (Auto) 0.51 H (0-0.5) x10^3/uL Immature Gran # (Auto) 0.06 H (0.00-0.03) x10^3u/L Absolute Lymphs (auto) 1.62 (1.0-4.6) x10^3/uL Absolute Monos (auto) 0.43 (0.0-1.3) x10^3/uL Absolute Nucleated RBC 0.00 (0.00-0.01) x10^3u/L Lymphocytes % 17.0 L (24.0-44.0) % Monocytes % 4.5 (0.0-12.0) % Eosinophils % 5.4 H (0.00-5.0) % Basophils % 1.7 (0.0-0.4) % Absolute Granulocytes 6.73 (1.4-6.9) x10^3/uL Basophils # 0.16 (0-0.4) x10^3/uL PT (9.4-12.5) SECONDS INR (0.8-3.0) APTT (25.1-36.5) SECONDS Puncture Site pCO2 (35-45) mmHg pO2 (75-100) mmHg Base Excess (-2.0-2.0) O2 Saturation (94-100) g/dF ABG pH (7.35-7.45) ABG HCO3 (22-28) ABG O2 Sat (Measured) (95-100) % Devin Test A-a Gradient a/A Ratio Hemoglobin Carboxyhemoglobin (0.0-6.9) % THgb Methemoglobin (1.4-1.5) % Temperature C POC O2 Flow Rate % Sodium (137-145) mmol/L Potassium (3.5-5.1) mmol/L Chloride (98-107) mmol/L Carbon Dioxide (22-30) mmol/L Anion Gap (5-15) MEQ/L BUN (9-20) mg/dL Creatinine (0.66-1.25) mg/dL Estimated GFR ML/MIN Glucose (74-106) mg/dL Lactic Acid (0.4-2.0) Calcium (8.4-10.2) mg/dL Magnesium (1.6-2.3) mg/dL Total Bilirubin (0.2-1.3) mg/dL AST (17-59) U/L ALT (0-50) U/L Alkaline Phosphatase (38-126) U/L Ammonia (9-30) umol/L Troponin I (0.000-0.034) ng/mL NT-Pro-B Natriuret Pep (<300) pg/mL Serum Total Protein (6.3-8.2) g/dL Albumin (3.5-5.0) g/dL Urine Color (Yellow) Urine Appearance (Clear) Urine pH (4.6-8.0) Ur Specific [place] (1.005-1.030) Urine Protein (Negative) Urine Glucose (UA) (Negative) mg/dL Urine Ketones (Negative) Urine Blood (Negative) Urine Nitrite (Negative) Urine Bilirubin (Negative) Urine Urobilinogen (0.2) mg/dL Ur Leukocyte Esterase (Negative) U Hyaline Cast (Auto) (0-2) /LPF Urine Microscopic RBC (0-5) /HPF Urine Microscopic WBC (0-5) /HPF Ur Epithelial Cells (None Seen) /HPF Urine Bacteria (None Seen) /HPF Urine Culture Reflexed (NO) Ethyl Alcohol (0-10) mg/dL Influenza Type A Ag (NEGATIVE) Influenza Type B Ag (NEGATIVE) RSV (PCR) (NEGATIVE) SARS-CoV-2 (PCR) (NEGATIVE) - Progress Progress Note: 05/27/23 18:19 Nursing note and vital signs reviewed. No food or housing insecurity is noted. All lab results reviewed and shared with patient's daughter and . CT results reviewed and shared with patient's daughter and . Etiology of patient's mental status change is unclear at this time. There is no evidence of sepsis at this time, and although patient has renal failure, it appears he is very close to his baseline. There is no evidence of acute CVA on his CT of his head. With fluids, patient's mental status improved somewhat. After discussing the next steps in patient care with patient's /daughter, states that she does not want patient transferred and that he is a DNR. Discussed the possibility of transferring patient for neurologic consult with possible MRI brain, but she still wants to keep patient at [facility]. Patient's calcium is mildly elevated, but doubt is elevated enough to cause mental status changes. Observation admit per . Counseled pt/family regarding: lab results, diagnosis, rad results Medical Desision Making - Diagnostic Testing Diagnostic test were ordered, analyzed, and reviewed by me: Yes Radiological Interpretation: Reviewed by me - Risk of complications The pt has a high risk of morbidity or mortality based on: Decision regarding hospitilization or escalation of hosp level of care, Decision not to resucitate - Departure Departure Disposition: Observation Clinical Impression: Altered mental status Condition: Stable Critical Care Time: No Referrals: [facility] [Primary Care Provider] - Follow up/PCP as directed Instructions: Altered Mental Status (DC)
[2023-05-27 17:03] LABS: Appearance Clear (Clear); Bacteria None Seen /HPF (None Seen); Bilirubin Negative (Negative); Blood Negative (Negative); Epithelial Cells None Seen /HPF (None Seen); Glucose, Urine >=1000 mg/dL (Negative); Hyaline Casts NONE SEEN /LPF (0-2); Ketones Negative (Negative); Leukocyte Esterase Negative (Negative); Nitrite Negative (Negative); Protein,Urine Dip 100 (Negative); RBC 0-2 /HPF (0-5); Specific Gravity 1.015 (1.005-1.030); Urobilinogen 0.2 mg/dL (0.2); WBC 0-2 /HPF (0-5)
[2023-05-27 17:05] LABS: ADD URINE CULTURE? NO (NO)
[2023-05-27 17:28] LABS: A-aADO2 53; ABG HEMOGLOBIN 10.9; ABG POTASSIUM 4.1 (3.5-5.1); ARTERIAL BLOOD GAS BASE EXCESS 3.8 (-2.0-2.0); ARTERIAL BLOOD GAS FIO2 21 %; ARTERIAL BLOOD GAS PCO2 38 mmHg (35-45); ARTERIAL BLOOD GAS PO2 49 mmHg (75-100); ARTERIAL BLOOD GAS pH 7.47 (7.35-7.45); CARBOXYHEMOGLOBIN 1.1 % THgb (0.0-6.9); HCO3- 27.7 (22-28); HGB O2 SAT 82.1 g/dF (94-100); paO2 pAO1 0.48
[2023-05-27 17:29] LABS: ABG SITE LEFT RADIAL; ALLEN TEST OK? YES
[2023-05-27] MEDS ORDERED: TRANDATE 20 MG/4 ML SYRINGE IV PRN (20:16)
[2023-05-27] MEDS ORDERED: DUONEB 0.5-3 MG/3 ml Neb IH PRN ×2 (21:22→21:40)
[2023-05-27] MEDS ORDERED: Lactated Ringers 1,000 ML IV SCH (21:30)
[2023-05-27] MEDS ORDERED: Nitrostat 0.4 MG Tablet SL SCH (21:30)
[2023-05-27] MEDS ORDERED: NON-FORMULARY ITEM (Mecobalamin [B12 Active] 1,000 MCG Tab.Chew) PO SCH (21:30)
[2023-05-27] MEDS ORDERED: Lactated Ringers 0 ML IV ONE (21:32)
--- NOTE | 2023-05-27 21:36 | PCM.HP ---
History of Present Illness - Chief Complaint Chief Complaint: Altered mental status Date: 05/27/23 History of Present Illness: Mr. Domínguez is an 83 year-old gentleman with CAD s/p CABG + PCI, CKD II/III, emphysematous COPD, prior CVA, HTN, HLD, DM2, chronic anemia, and AFib on eliquis who presents with altered mental status and shortness of breath. He presented in a similar fashion to Eliud a month ago and got transferred for higher level of care - I am unsure what work-up was done then as family is not present. Today, he presents with altered mental status which according to his family has been ongoing for the last 24 hours. Upon arrival, he was A/O x 0, but after some fluids he apparently "became more alert." Laboratory data was remarkable for a Cr 2.51 and chronic anemia, while imaging was unrevealing. According to chart review the family declined transfer stating that he is DNR - Chart reveals Full Code. On my examination, he remains confused and A/O x 0-1. - Review of Systems Constitutional: Other (UNABLE TO OBTAIN) Medications & Allergies Home Medications: Home Medication List Amlodipine Besylate 5 mg [Norvasc 5 mg] 10 mg PO DAILY 05/16/22 [History Confirmed 05/27/23] Apixaban [Eliquis 5 mg Tablet] 5 mg PO BID 05/16/22 [History Confirmed 05/27/23] Hydrocodone/Acetaminophen [Hydrocodone-Acetamin 10-325 mg] 1 tab PO Q6HPRN PRN 05/16/22 [History Confirmed 05/27/23] Metoprolol Tartrate 25 mg [Lopressor 25MG Tab] 50 mg PO BID 05/16/22 [History Confirmed 05/27/23] Multivitamin [Multivitamins] 1 tab PO DAILY 05/16/22 [History Confirmed ] Pregabalin 50 mg [Lyrica 50MG] 150 mg PO BID 05/16/22 [History Confirmed 05/27/23] Tamsulosin HCl 0.4 mg [Flomax 0.4 MG] 0.4 mg PO DAILY 05/16/22 [History Confirmed 05/27/23] Albuterol 2.5 mg/3 ml Neb [Proventil 2.5 mg/3 ml Neb] 1 neb IH DAILY PRN PRN 07/08/22 [History Confirmed 05/27/23] Dapagliflozin Propanediol [Farxiga] 10 mg PO DAILY 01/08/23 [History Confirmed 05/27/23] Ferrous Sulfate 325 mg [Feosol 325 mg] 325 mg PO DAILY 01/08/23 [History Confirmed 05/27/23] Furosemide 20 mg [Lasix 20 mg] 40 mg PO BID 01/08/23 [History Confirmed 05/27/23] Nitroglycerin 0.4 mg Tablet [Nitrostat 0.4 MG Tablet] 0.4 mg SL UD 01/08/23 [History Confirmed 05/27/23] Sucralfate 1 gm [Carafate 1 GM] 1 gm PO QID 01/08/23 [History Confirmed 05/27/23] Allopurinol 300 mg [Zyloprim 300 mg] 300 mg PO DAILY 02/12/23 [History Confirmed 05/27/23] Albuterol/Ipratropium 3ml Neb* [DUONEB 0.5-3 MG/3 ml Neb] 3 ml IH QID PRN 04/11/23 [History Confirmed 05/27/23] Bimatoprost 0.01% [Lumigan 0.01% 2.5 ml] 1 drop OP HS 04/11/23 [History Confirmed 05/27/23] Insulin Glargine/Lixisenatide [Soliqua 100 Unit-33 Mcg/ml Pen] 30 units SQ DAILY 04/11/23 [History Confirmed 05/27/23] Insulin Regular, Human [Novolin R] 6 unit SQ UD 04/11/23 [History Confirmed 05/27/23] Metformin HCl 500 mg [Glucophage 500 MG] 1,000 mg PO BIDWM 04/11/23 [History Confirmed 05/27/23] Isosorbide Mononitrate [Isosorbide Mononitrate ER] 60 mg PO DAILY 05/27/23 [History Confirmed 05/27/23] Mecobalamin [B12 Active] 1 tab PO CLARIFY 05/27/23 [History Confirmed 05/27/23] Methylphenidate 5 mg [Ritalin 5 MG] 10 mg PO 1400 05/27/23 [History Confirmed 05/27/23] Methylphenidate HCl 20 mg PO DAILY 05/27/23 [History Confirmed 05/27/23] PANTOPRAZOLE 40 mg Tablet [Protonix 40MG Tablet] 40 mg PO DAILY 05/27/23 [History Confirmed 05/27/23] Allergies/Adverse Reactions: Allergies Allergy/AdvReac Type Severity Reaction Status Date / Time Iodinated Contrast Media Allergy Intermediate unknown- Verified 05/27/23 14:50 [Iodinated Contrast Media - hives IV Dye] morphine Allergy Intermediate confusion Verified 05/27/23 14:50 and combative hydromorphone HCl AdvReac Intermediate confusion Verified 05/27/23 14:50 [From Dilaudid] and combative oxycodone HCl AdvReac Intermediate confusion/ Verified 05/27/23 14:50 [From OxyContin] combative - Past Medical History Past Medical History: Yes Neurological History: No Pertinent History ENT History: Cataracts, Glaucoma Cardiac History: Hypertension, Myocardial Infarction (AR), Other Respiratory History: Asthma, COPD, Other Endocrine Medical History: Diabetes Type II Musculoskelatal History: Fractures GI Medical History: GERD, Gallbladder Disease History: Other Pyscho-Social History: Depression Male Reproductive Disorders: Prostate Problems Comment: COVID-19, L Wrist Fracture (1982), Open Heart Surgery (1993), LE fracture (unable to recall which side, ), Low Back Pain, LB surgery (1994 with rods placed) - Past Surgical History Past Surgical History: Yes Neuro Surgical History: No Pertinent History Cardiac History: CABG, Cardiac Catheterization, Cardiac Stent Respiratory Surgery: Chest Surgery GI Surgical History: Appendectomy, Cholecystectomy Genitourinary Surgical Hx: No Pertinent History Musculskeletal Surgical Hx: Orthopedic Surgery Male Surgical History: No Pertinent History Other Surgical History: back surgery, fem pop, steriod injection in various joints, carpal tunnel surgery - Social History Smoking Status: Never smoker How long have you smoked: 1975 Exposure to second hand smoke: No Alcohol: None Drug Use: none Significant Family History: no pertinent family hx - Physical Exam Vital Signs: Vital Signs - 24 hr Temp Pulse Resp BP BP Pulse Ox 05/27/23 20:38 175/77 94 L 05/27/23 19:00 81 10 L 121/49 95 05/27/23 18:30 83 137/53 95 05/27/23 18:24 96 05/27/23 18:00 87 16 145/60 95 05/27/23 17:30 79 16 150/63 96 05/27/23 17:00 94 H 15 129/47 93 L 05/27/23 16:31 81 17 155/64 05/27/23 16:00 83 17 160/69 94 L 05/27/23 15:31 70 18 165/59 96 05/27/23 15:19 74 16 167/66 100 05/27/23 14:04 75 18 163/68 05/27/23 13:56 97.5 F 76 16 163/68 94 L General Appearance: no apparent distress, alert Neurologic Exam: other (ALTERED AND CONFUSED) Eye Exam: PERRL/EOMI, eyes nml inspection Ears, Nose, Throat Exam: normal ENT inspection, TMs normal, pharynx normal, moist mucous membranes Neck Exam: normal inspection, non-tender, supple, full range of motion Respiratory Exam: normal breath sounds, lungs clear, No respiratory distress Cardiovascular Exam: regular rate/rhythm, normal heart sounds, normal peripheral pulses Gastrointestinal/Abdomen Exam: soft, normal bowel sounds, distention, other Back Exam: normal inspection, normal range of motion, No CVA tenderness, No vertebral tenderness Extremity Exam: normal inspection, normal range of motion, pelvis stable, pedal edema Skin Exam: normal color, warm, dry, No rash Lymphatic Exam: No adenopathy Results - Labs Lab/Micro Results: Lab Results-Last 24 Hours 05/27/23 05/27/23 05/27/23 Range/Units 14:00 14:00 14:00 WBC 9.5 (4.0-10.5) x10^3/uL RBC 3.96 L (4.1-5.6) x10^6/uL Hgb 10.8 L (12.5-18.0) g/dL Hct 35.3 L (42-50) % MCV 89.1 (78-100) fL MCH 27.3 (26-32) pg MCHC 30.6 L (32-36) g/dL RDW 16.1 H (11.5-14.0) % Plt Count 161 (150-450) x10^3/uL MPV 11.9 H (7.5-11.0) fL Gran % 70.8 H (36.0-66.0) % Immature Gran % (Auto) 0.6 H (0.00-0.4) % Nucleat RBC Rel Count 0.0 (0.00-0.1) % Eos # (Auto) 0.51 H (0-0.5) x10^3/uL Immature Gran # (Auto) 0.06 H (0.00-0.03) x10^3u/L Absolute Lymphs (auto) 1.62 (1.0-4.6) x10^3/uL Absolute Monos (auto) 0.43 (0.0-1.3) x10^3/uL Absolute Nucleated RBC 0.00 (0.00-0.01) x10^3u/L Lymphocytes % 17.0 L (24.0-44.0) % Monocytes % 4.5 (0.0-12.0) % Eosinophils % 5.4 H (0.00-5.0) % Basophils % 1.7 (0.0-0.4) % Absolute Granulocytes 6.73 (1.4-6.9) x10^3/uL Basophils # 0.16 (0-0.4) x10^3/uL PT 10.3 (9.4-12.5) SECONDS INR 0.94 (0.8-3.0) APTT 28.2 (25.1-36.5) SECONDS Puncture Site pCO2 (35-45) mmHg pO2 (75-100) mmHg Base Excess (-2.0-2.0) O2 Saturation (94-100) g/dF ABG pH (7.35-7.45) ABG HCO3 (22-28) ABG O2 Sat (Measured) (95-100) % Devin Test A-a Gradient a/A Ratio Hemoglobin Carboxyhemoglobin (0.0-6.9) % THgb Methemoglobin (1.4-1.5) % Temperature C POC O2 Flow Rate % Sodium 143 (137-145) mmol/L Potassium 4.2 (3.5-5.1) mmol/L Chloride 110 H (98-107) mmol/L Carbon Dioxide 25 (22-30) mmol/L Anion Gap 12.5 (5-15) MEQ/L BUN 39 H (9-20) mg/dL Creatinine 2.51 H (0.66-1.25) mg/dL Estimated GFR 24.9 ML/MIN Glucose 109 H (74-106) mg/dL Lactic Acid (0.4-2.0) Calcium 10.4 H (8.4-10.2) mg/dL Magnesium 2.1 (1.6-2.3) mg/dL Total Bilirubin 0.30 (0.2-1.3) mg/dL AST 27 (17-59) U/L ALT 15 (0-50) U/L Alkaline Phosphatase 61 (38-126) U/L Ammonia (9-30) umol/L Troponin I (0.000-0.034) ng/mL NT-Pro-B Natriuret Pep 955 (<300) pg/mL Serum Total Protein 7.3 (6.3-8.2) g/dL Albumin 3.9 (3.5-5.0) g/dL Urine Color (Yellow) Urine Appearance (Clear) Urine pH (4.6-8.0) Ur Specific Curt[place] (1.005-1.030) Urine Protein (Negative) Urine Glucose (UA) (Negative) mg/dL Urine Ketones (Negative) Urine Blood (Negative) Urine Nitrite (Negative) Urine Bilirubin (Negative) Urine Urobilinogen (0.2) mg/dL Ur Leukocyte Esterase (Negative) U Hyaline Cast (Auto) (0-2) /LPF Urine Microscopic RBC (0-5) /HPF Urine Microscopic WBC (0-5) /HPF Ur Epithelial Cells (None Seen) /HPF Urine Bacteria (None Seen) /HPF Urine Culture Reflexed (NO) Ethyl Alcohol < 10 (0-10) mg/dL Influenza Type A Ag (NEGATIVE) Influenza Type B Ag (NEGATIVE) RSV (PCR) (NEGATIVE) SARS-CoV-2 (PCR) (NEGATIVE) 05/27/23 05/27/23 05/27/23 Range/Units 14:00 14:02 14:15 WBC (4.0-10.5) x10^3/uL RBC (4.1-5.6) x10^6/uL Hgb (12.5-18.0) g/dL Hct (42-50) % MCV (78-100) fL MCH (26-32) pg MCHC (32-36) g/dL RDW (11.5-14.0) % Plt Count (150-450) x10^3/uL MPV (7.5-11.0) fL Gran % (36.0-66.0) % Immature Gran % (Auto) (0.00-0.4) % Nucleat RBC Rel Count (0.00-0.1) % Eos # (Auto) (0-0.5) x10^3/uL Immature Gran # (Auto) (0.00-0.03) x10^3u/L Absolute Lymphs (auto) (1.0-4.6) x10^3/uL Absolute Monos (auto) (0.0-1.3) x10^3/uL Absolute Nucleated RBC (0.00-0.01) x10^3u/L Lymphocytes % (24.0-44.0) % Monocytes % (0.0-12.0) % Eosinophils % (0.00-5.0) % Basophils % (0.0-0.4) % Absolute Granulocytes (1.4-6.9) x10^3/uL Basophils # (0-0.4) x10^3/uL PT (9.4-12.5) SECONDS INR (0.8-3.0) APTT (25.1-36.5) SECONDS Puncture Site pCO2 (35-45) mmHg pO2 (75-100) mmHg Base Excess (-2.0-2.0) O2 Saturation (94-100) g/dF ABG pH (7.35-7.45) ABG HCO3 (22-28) ABG O2 Sat (Measured) (95-100) % Devin Test A-a Gradient a/A Ratio Hemoglobin Carboxyhemoglobin (0.0-6.9) % THgb Methemoglobin (1.4-1.5) % Temperature C POC O2 Flow Rate % Sodium (137-145) mmol/L Potassium (3.5-5.1) mmol/L Chloride (98-107) mmol/L Carbon Dioxide (22-30) mmol/L Anion Gap (5-15) MEQ/L BUN (9-20) mg/dL Creatinine (0.66-1.25) mg/dL Estimated GFR ML/MIN Glucose (74-106) mg/dL Lactic Acid 0.7 (0.4-2.0) Calcium (8.4-10.2) mg/dL Magnesium (1.6-2.3) mg/dL Total Bilirubin (0.2-1.3) mg/dL AST (17-59) U/L ALT (0-50) U/L Alkaline Phosphatase (38-126) U/L Ammonia (9-30) umol/L Troponin I 0.012 (0.000-0.034) ng/mL NT-Pro-B Natriuret Pep (<300) pg/mL Serum Total Protein (6.3-8.2) g/dL Albumin (3.5-5.0) g/dL Urine Color (Yellow) Urine Appearance (Clear) Urine pH (4.6-8.0) Ur Specific [place] (1.005-1.030) Urine Protein (Negative) Urine Glucose (UA) (Negative) mg/dL Urine Ketones (Negative) Urine Blood (Negative) Urine Nitrite (Negative) Urine Bilirubin (Negative) Urine Urobilinogen (0.2) mg/dL Ur Leukocyte Esterase (Negative) U Hyaline Cast (Auto) (0-2) /LPF Urine Microscopic RBC (0-5) /HPF Urine Microscopic WBC (0-5) /HPF Ur Epithelial Cells (None Seen) /HPF Urine Bacteria (None Seen) /HPF Urine Culture Reflexed (NO) Ethyl Alcohol (0-10) mg/dL Influenza Type A Ag NEGATIVE (NEGATIVE) Influenza Type B Ag NEGATIVE (NEGATIVE) RSV (PCR) NEGATIVE (NEGATIVE) SARS-CoV-2 (PCR) NEGATIVE (NEGATIVE) 05/27/23 05/27/23 05/27/23 Range/Units 16:54 17:25 18:15 WBC (4.0-10.5) x10^3/uL RBC (4.1-5.6) x10^6/uL Hgb (12.5-18.0) g/dL Hct (42-50) % MCV (78-100) fL MCH (26-32) pg MCHC (32-36) g/dL RDW (11.5-14.0) % Plt Count (150-450) x10^3/uL MPV (7.5-11.0) fL Gran % (36.0-66.0) % Immature Gran % (Auto) (0.00-0.4) % Nucleat RBC Rel Count (0.00-0.1) % Eos # (Auto) (0-0.5) x10^3/uL Immature Gran # (Auto) (0.00-0.03) x10^3u/L Absolute Lymphs (auto) (1.0-4.6) x10^3/uL Absolute Monos (auto) (0.0-1.3) x10^3/uL Absolute Nucleated RBC (0.00-0.01) x10^3u/L Lymphocytes % (24.0-44.0) % Monocytes % (0.0-12.0) % Eosinophils % (0.00-5.0) % Basophils % (0.0-0.4) % Absolute Granulocytes (1.4-6.9) x10^3/uL Basophils # (0-0.4) x10^3/uL PT (9.4-12.5) SECONDS INR (0.8-3.0) APTT (25.1-36.5) SECONDS Puncture Site LEFT RADIAL pCO2 38 (35-45) mmHg pO2 49 L* (75-100) mmHg Base Excess 3.8 H (-2.0-2.0) O2 Saturation 82.1 L (94-100) g/dF ABG pH 7.47 H (7.35-7.45) ABG HCO3 27.7 (22-28) ABG O2 Sat (Measured) 83.0 L (95-100) % Devin Test YES A-a Gradient 53 a/A Ratio 0.48 Hemoglobin 10.9 Carboxyhemoglobin 1.1 (0.0-6.9) % THgb Methemoglobin 0.0 L (1.4-1.5) % Temperature 37.0 C POC O2 Flow Rate 21 % Sodium (137-145) mmol/L Potassium 4.1 (3.5-5.1) mmol/L Chloride (98-107) mmol/L Carbon Dioxide (22-30) mmol/L Anion Gap (5-15) MEQ/L BUN (9-20) mg/dL Creatinine (0.66-1.25) mg/dL Estimated GFR ML/MIN Glucose (74-106) mg/dL Lactic Acid (0.4-2.0) Calcium (8.4-10.2) mg/dL Magnesium (1.6-2.3) mg/dL Total Bilirubin (0.2-1.3) mg/dL AST (17-59) U/L ALT (0-50) U/L Alkaline Phosphatase (38-126) U/L Ammonia (9-30) umol/L Troponin I 0.013 (0.000-0.034) ng/mL NT-Pro-B Natriuret Pep (<300) pg/mL Serum Total Protein (6.3-8.2) g/dL Albumin (3.5-5.0) g/dL Urine Color Yellow (Yellow) Urine Appearance Clear (Clear) Urine pH 6.0 (4.6-8.0) Ur Specific [place] 1.015 (1.005-1.030) Urine Protein 100 A (Negative) Urine Glucose (UA) >=1000 A (Negative) mg/dL Urine Ketones Negative (Negative) Urine Blood Negative (Negative) Urine Nitrite Negative (Negative) Urine Bilirubin Negative (Negative) Urine Urobilinogen 0.2 (0.2) mg/dL Ur Leukocyte Esterase Negative (Negative) U Hyaline Cast (Auto) NONE SEEN (0-2) /LPF Urine Microscopic RBC 0-2 (0-5) /HPF Urine Microscopic WBC 0-2 (0-5) /HPF Ur Epithelial Cells None Seen (None Seen) /HPF Urine Bacteria None Seen (None Seen) /HPF Urine Culture Reflexed NO (NO) Ethyl Alcohol (0-10) mg/dL Influenza Type A Ag (NEGATIVE) Influenza Type B Ag (NEGATIVE) RSV (PCR) (NEGATIVE) SARS-CoV-2 (PCR) (NEGATIVE) 05/27/23 Range/Units Unknown WBC (4.0-10.5) x10^3/uL RBC (4.1-5.6) x10^6/uL Hgb (12.5-18.0) g/dL Hct (42-50) % MCV (78-100) fL MCH (26-32) pg MCHC (32-36) g/dL RDW (11.5-14.0) % Plt Count (150-450) x10^3/uL MPV (7.5-11.0) fL Gran % (36.0-66.0) % Immature Gran % (Auto) (0.00-0.4) % Nucleat RBC Rel Count (0.00-0.1) % Eos # (Auto) (0-0.5) x10^3/uL Immature Gran # (Auto) (0.00-0.03) x10^3u/L Absolute Lymphs (auto) (1.0-4.6) x10^3/uL Absolute Monos (auto) (0.0-1.3) x10^3/uL Absolute Nucleated RBC (0.00-0.01) x10^3u/L Lymphocytes % (24.0-44.0) % Monocytes % (0.0-12.0) % Eosinophils % (0.00-5.0) % Basophils % (0.0-0.4) % Absolute Granulocytes (1.4-6.9) x10^3/uL Basophils # (0-0.4) x10^3/uL PT (9.4-12.5) SECONDS INR (0.8-3.0) APTT (25.1-36.5) SECONDS Puncture Site pCO2 (35-45) mmHg pO2 (75-100) mmHg Base Excess (-2.0-2.0) O2 Saturation (94-100) g/dF ABG pH (7.35-7.45) ABG HCO3 (22-28) ABG O2 Sat (Measured) (95-100) % Devin Test A-a Gradient a/A Ratio Hemoglobin Carboxyhemoglobin (0.0-6.9) % THgb Methemoglobin (1.4-1.5) % Temperature C POC O2 Flow Rate % Sodium (137-145) mmol/L Potassium (3.5-5.1) mmol/L Chloride (98-107) mmol/L Carbon Dioxide (22-30) mmol/L Anion Gap (5-15) MEQ/L BUN (9-20) mg/dL Creatinine (0.66-1.25) mg/dL Estimated GFR ML/MIN Glucose (74-106) mg/dL Lactic Acid (0.4-2.0) Calcium (8.4-10.2) mg/dL Magnesium (1.6-2.3) mg/dL Total Bilirubin (0.2-1.3) mg/dL AST (17-59) U/L ALT (0-50) U/L Alkaline Phosphatase (38-126) U/L Ammonia < 9 L (9-30) umol/L Troponin I (0.000-0.034) ng/mL NT-Pro-B Natriuret Pep (<300) pg/mL Serum Total Protein (6.3-8.2) g/dL Albumin (3.5-5.0) g/dL Urine Color (Yellow) Urine Appearance (Clear) Urine pH (4.6-8.0) Ur Specific [place] (1.005-1.030) Urine Protein (Negative) Urine Glucose (UA) (Negative) mg/dL Urine Ketones (Negative) Urine Blood (Negative) Urine Nitrite (Negative) Urine Bilirubin (Negative) Urine Urobilinogen (0.2) mg/dL Ur Leukocyte Esterase (Negative) U Hyaline Cast (Auto) (0-2) /LPF Urine Microscopic RBC (0-5) /HPF Urine Microscopic WBC (0-5) /HPF Ur Epithelial Cells (None Seen) /HPF Urine Bacteria (None Seen) /HPF Urine Culture Reflexed (NO) Ethyl Alcohol (0-10) mg/dL Influenza Type A Ag (NEGATIVE) Influenza Type B Ag (NEGATIVE) RSV (PCR) (NEGATIVE) SARS-CoV-2 (PCR) (NEGATIVE) - Radiology Impressions Radiology Exams & Impressions: Radiology Procedures Category Date Time Status ABDOMEN WITHOUT CONTRAST [CT] Routine Exams 05/28/23 09:00 Ordered CHEST WITHOUT CONTRAST [CT] Stat Exams 05/27/23 14:04 Completed HAND (MINIMUM 3 VIEWS) Stat Exams 05/27/23 14:07 Completed HEAD WITHOUT CONTRAST [CT] Stat Exams 05/27/23 14:04 Completed MRI BRAIN W/O CONTRAST [MRI] Routine Exams 05/28/23 09:00 Ordered Assessment/Plan (1) Altered mental status Current Visit: Yes Status: Acute Assessment & Plan: ASSESSMENT 1. Altered Mental Status 2. Acute on Chronic Kidney Disease 3. Acute Hypoxemic Respiratory Failure 4. Acute Hypoglycemia 5. Chronic Emphysematous COPD 6. Hypertension 7. Hyperlipidemia 8. Type II Diabetes Mellitus 9. Coronary Artery Disease s/p PCI + CABG 10. Atrial Fibrillation on Eliquis 11. Chronic Anemia PLAN 1. Continues to be confused; CT Head negative; Cr will not allow for CTA; MRI ordered for AM; ammonia and pCO2 negative; EtOH level negative; UDS ordered 2. Wean oxygen to maintain SaO2 > 90%; CT clear of disease; lung exam without wheezes; PRN nebs for now 3. CT A/P ordered with distended belly 4. MRI in AM 5. Hold lasix and any analgesics which may alter his mental status 6. Gentle fluids in form of D5 7. NPO except meds - hold diabetic regimen; CBG q2; D5LR Eliquis The entirety of this encounter was done via telemedicine Ghanshyam Jones MD Pulmonary and Critical Care Medicine Code(s): R41.82 - ALTERED MENTAL STATUS, UNSPECIFIED Telemedicine Encounter - Telemedicine Encounter Telemedicine Encounter: The entirety of this encounter was performed via Telemedicine"
[2023-05-27] MEDS ORDERED: ELIQUIS 2.5 MG TABLET ONE (21:49)
[2023-05-27] MEDS ORDERED: Lopressor 50 MG ONE (21:49)
[2023-05-27] MEDS: ELIQUIS 2.5 MG TABLET PO SCH (22:00)
[2023-05-27] MEDS ORDERED: NON-FORMULARY ITEM (Apixaban*** [Eliquis 5 Mg Tablet***] 5 MG Tablet) PO SCH (22:00)
[2023-05-27] MEDS ORDERED: Dextrose 5%-Lr IV Solution 1000 ML 1,000 ML IV SCH ×2 (22:00)
[2023-05-27] MEDS: Lopressor 25MG Tab PO SCH (22:02)
[2023-05-27 23:24] LABS: Amphetamine,Urine NEGATIVE (NEGATIVE); Barbiturate,Urine NEGATIVE (NEGATIVE); Benzodiazepine,Urine NEGATIVE (NEGATIVE); Cocaine,Urine NEGATIVE (NEGATIVE); Methadone,Urine NEGATIVE (NEGATIVE); Opiate,Urine POSITIVE (NEGATIVE); PCP,Urine NEGATIVE (NEGATIVE); THC,Urine NEGATIVE (NEGATIVE)
--- NOTE | 2023-05-28 05:26 | PCM.NOTE ---
Date and Time: 05/28/23519 Subjective Assessment: Mr. Domínguez is an 83 year-old gentleman with CAD s/p CABG + PCI, CKD II/III, emphysematous COPD, prior CVA, HTN, HLD, DM2, chronic anemia, and AFib on eliquis who presents with altered mental status and shortness of breath. He presented in a similar fashion to Eliud a month ago and got transferred for higher level of care - I am unsure what work-up was done then as family is not present. Today, he presents with altered mental status which according to his family has been ongoing for the last 24 hours. Upon arrival, he was A/O x 0, but after some fluids he apparently "became more alert." Laboratory data was remarkable for a Cr 2.51 and chronic anemia, while imaging was unrevealing. According to chart review the family declined transfer stating that he is DNR - Chart reveals Full Code. On my examination, he remains confused and A/O x 0-1. 05/28: Met with patient and family bedside. No overnight events. Patient with no complaints today. Patient now at baseline mentation, A&O x 3. Discussed CT findings which so far have been unremarkable. MRI of the brain is pending. Patient and family requesting a regular diet. Patient states abdomen appears less distended than yesterday. On exam, mild distention is noted, with mild firmness. Patient unable to remember when last BM was. Denies fever,cough, cp, abdominal pain, WILKINSON, dizziness, N/V/D. 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 nml as tested Skin Exam: normal color Wound Assessment: Skin/Wound Assessment Wound/Incision Assessment Start: 05/27/23 21:57 Text: Status: Active Freq: Q6H Protocol: Document 05/28/23 02:00 AB (Rec: 05/28/23 02:39 AB [id number]) Wound Photo Photo Taken No Eye Exam: PERRL Ears, Nose, Throat Exam: normal ENT inspection Neck Exam: normal inspection Respiratory Exam: diminished breath sounds, crackles/rales (LLL) Cardiovascular Exam: regular rate/rhythm, murmur Gastrointestinal/Abdomen Exam: distention (mild/ mildly firm) Extremity Exam: swelling (BLE) Back Exam: normal inspection OBJECTIVE DATA Vital Signs: Vital Signs - 24 hr Temp Pulse Resp BP BP Pulse Ox 05/28/23 04:00 97.8 F 58 L 16 138/62 98 05/28/23 00:00 97.7 F 65 18 152/69 97 05/27/23 23:00 74 14 96 05/27/23 20:38 175/77 94 L 05/27/23 20:00 94 L 05/27/23 19:44 97.6 F 90 20 189/77 89 L 05/27/23 19:00 81 10 L 121/49 95 05/27/23 18:30 83 137/53 95 05/27/23 18:24 96 05/27/23 18:00 87 16 145/60 95 05/27/23 17:30 79 16 150/63 96 05/27/23 17:00 94 H 15 129/47 93 L 05/27/23 16:31 81 17 155/64 05/27/23 16:00 83 17 160/69 94 L 05/27/23 15:31 70 18 165/59 96 05/27/23 15:19 74 16 167/66 100 05/27/23 14:04 75 18 163/68 05/27/23 13:56 97.5 F 76 16 163/68 94 L Pain Assessment - Last Documented Pain Intensity 0 Intake and Output: Intake & Output 05/25/23 05/26/23 05/27/23 05/28/23 11:59 11:59 11:59 11:59 Intake Total 550 Balance 550 Weight 90.6 kg Lab Results: Lab Results-Last 24 Hours 05/27/23 05/27/23 05/27/23 Range/Units 14:00 14:00 14:00 WBC 9.5 (4.0-10.5) x10^3/uL RBC 3.96 L (4.1-5.6) x10^6/uL Hgb 10.8 L (12.5-18.0) g/dL Hct 35.3 L (42-50) % MCV 89.1 (78-100) fL MCH 27.3 (26-32) pg MCHC 30.6 L (32-36) g/dL RDW 16.1 H (11.5-14.0) % Plt Count 161 (150-450) x10^3/uL MPV 11.9 H (7.5-11.0) fL Gran % 70.8 H (36.0-66.0) % Immature Gran % (Auto) 0.6 H (0.00-0.4) % Nucleat RBC Rel Count 0.0 (0.00-0.1) % Eos # (Auto) 0.51 H (0-0.5) x10^3/uL Immature Gran # (Auto) 0.06 H (0.00-0.03) x10^3u/L Absolute Lymphs (auto) 1.62 (1.0-4.6) x10^3/uL Absolute Monos (auto) 0.43 (0.0-1.3) x10^3/uL Absolute Nucleated RBC 0.00 (0.00-0.01) x10^3u/L Lymphocytes % 17.0 L (24.0-44.0) % Monocytes % 4.5 (0.0-12.0) % Eosinophils % 5.4 H (0.00-5.0) % Basophils % 1.7 (0.0-0.4) % Absolute Granulocytes 6.73 (1.4-6.9) x10^3/uL Basophils # 0.16 (0-0.4) x10^3/uL PT 10.3 (9.4-12.5) SECONDS INR 0.94 (0.8-3.0) APTT 28.2 (25.1-36.5) SECONDS Puncture Site pCO2 (35-45) mmHg pO2 (75-100) mmHg Base Excess (-2.0-2.0) O2 Saturation (94-100) g/dF ABG pH (7.35-7.45) ABG HCO3 (22-28) ABG O2 Sat (Measured) (95-100) % Devin Test A-a Gradient a/A Ratio Hemoglobin Carboxyhemoglobin (0.0-6.9) % THgb Methemoglobin (1.4-1.5) % Temperature C POC O2 Flow Rate % Sodium 143 (137-145) mmol/L Potassium 4.2 (3.5-5.1) mmol/L Chloride 110 H (98-107) mmol/L Carbon Dioxide 25 (22-30) mmol/L Anion Gap 12.5 (5-15) MEQ/L BUN 39 H (9-20) mg/dL Creatinine 2.51 H (0.66-1.25) mg/dL Estimated GFR 24.9 ML/MIN Glucose 109 H (74-106) mg/dL POC Glucometer (74 to 106) mg/dL Lactic Acid (0.4-2.0) Calcium 10.4 H (8.4-10.2) mg/dL Magnesium 2.1 (1.6-2.3) mg/dL Total Bilirubin 0.30 (0.2-1.3) mg/dL AST 27 (17-59) U/L ALT 15 (0-50) U/L Alkaline Phosphatase 61 (38-126) U/L Ammonia (9-30) umol/L Troponin I (0.000-0.034) ng/mL NT-Pro-B Natriuret Pep 955 (<300) pg/mL Serum Total Protein 7.3 (6.3-8.2) g/dL Albumin 3.9 (3.5-5.0) g/dL Urine Color (Yellow) Urine Appearance (Clear) Urine pH (4.6-8.0) Ur Specific [employer] [place] (1.005-1.030) Urine Protein (Negative) Urine Glucose (UA) (Negative) mg/dL Urine Ketones (Negative) Urine Blood (Negative) Urine Nitrite (Negative) Urine Bilirubin (Negative) Urine Urobilinogen (0.2) mg/dL Ur Leukocyte Esterase (Negative) U Hyaline Cast (Auto) (0-2) /LPF Urine Microscopic RBC (0-5) /HPF Urine Microscopic WBC (0-5) /HPF Ur Epithelial Cells (None Seen) /HPF Urine Bacteria (None Seen) /HPF Urine Culture Reflexed (NO) Urine Opiates Level (NEGATIVE) Ur Methadone (NEGATIVE) Urine Barbiturates (NEGATIVE) Ur Phencyclidine (PCP) (NEGATIVE) Urine Amphetamine (NEGATIVE) U Benzodiazepine Level (NEGATIVE) Urine Cocaine (NEGATIVE) Urine Marijuana (THC) (NEGATIVE) Ethyl Alcohol < 10 (0-10) mg/dL Influenza Type A Ag (NEGATIVE) Influenza Type B Ag (NEGATIVE) RSV (PCR) (NEGATIVE) SARS-CoV-2 (PCR) (NEGATIVE) 05/27/23 05/27/23 05/27/23 Range/Units 14:00 14:02 14:15 WBC (4.0-10.5) x10^3/uL RBC (4.1-5.6) x10^6/uL Hgb (12.5-18.0) g/dL Hct (42-50) % MCV (78-100) fL MCH (26-32) pg MCHC (32-36) g/dL RDW (11.5-14.0) % Plt Count (150-450) x10^3/uL MPV (7.5-11.0) fL Gran % (36.0-66.0) % Immature Gran % (Auto) (0.00-0.4) % Nucleat RBC Rel Count (0.00-0.1) % Eos # (Auto) (0-0.5) x10^3/uL Immature Gran # (Auto) (0.00-0.03) x10^3u/L Absolute Lymphs (auto) (1.0-4.6) x10^3/uL Absolute Monos (auto) (0.0-1.3) x10^3/uL Absolute Nucleated RBC (0.00-0.01) x10^3u/L Lymphocytes % (24.0-44.0) % Monocytes % (0.0-12.0) % Eosinophils % (0.00-5.0) % Basophils % (0.0-0.4) % Absolute Granulocytes (1.4-6.9) x10^3/uL Basophils # (0-0.4) x10^3/uL PT (9.4-12.5) SECONDS INR (0.8-3.0) APTT (25.1-36.5) SECONDS Puncture Site pCO2 (35-45) mmHg pO2 (75-100) mmHg Base Excess (-2.0-2.0) O2 Saturation (94-100) g/dF ABG pH (7.35-7.45) ABG HCO3 (22-28) ABG O2 Sat (Measured) (95-100) % Devin Test A-a Gradient a/A Ratio Hemoglobin Carboxyhemoglobin (0.0-6.9) % THgb Methemoglobin (1.4-1.5) % Temperature C POC O2 Flow Rate % Sodium (137-145) mmol/L Potassium (3.5-5.1) mmol/L Chloride (98-107) mmol/L Carbon Dioxide (22-30) mmol/L Anion Gap (5-15) MEQ/L BUN (9-20) mg/dL Creatinine (0.66-1.25) mg/dL Estimated GFR ML/MIN Glucose (74-106) mg/dL POC Glucometer (74 to 106) mg/dL Lactic Acid 0.7 (0.4-2.0) Calcium (8.4-10.2) mg/dL Magnesium (1.6-2.3) mg/dL Total Bilirubin (0.2-1.3) mg/dL AST (17-59) U/L ALT (0-50) U/L Alkaline Phosphatase (38-126) U/L Ammonia (9-30) umol/L Troponin I 0.012 (0.000-0.034) ng/mL NT-Pro-B Natriuret Pep (<300) pg/mL Serum Total Protein (6.3-8.2) g/dL Albumin (3.5-5.0) g/dL Urine Color (Yellow) Urine Appearance (Clear) Urine pH (4.6-8.0) Ur Specific [employer] (1.005-1.030) Urine Protein (Negative) Urine Glucose (UA) (Negative) mg/dL Urine Ketones (Negative) Urine Blood (Negative) Urine Nitrite (Negative) Urine Bilirubin (Negative) Urine Urobilinogen (0.2) mg/dL Ur Leukocyte Esterase (Negative) U Hyaline Cast (Auto) (0-2) /LPF Urine Microscopic RBC (0-5) /HPF Urine Microscopic WBC (0-5) /HPF Ur Epithelial Cells (None Seen) /HPF Urine Bacteria (None Seen) /HPF Urine Culture Reflexed (NO) Urine Opiates Level (NEGATIVE) Ur Methadone (NEGATIVE) Urine Barbiturates (NEGATIVE) Ur Phencyclidine (PCP) (NEGATIVE) Urine Amphetamine (NEGATIVE) U Benzodiazepine Level (NEGATIVE) Urine Cocaine (NEGATIVE) Urine Marijuana (THC) (NEGATIVE) Ethyl Alcohol (0-10) mg/dL Influenza Type A Ag NEGATIVE (NEGATIVE) Influenza Type B Ag NEGATIVE (NEGATIVE) RSV (PCR) NEGATIVE (NEGATIVE) SARS-CoV-2 (PCR) NEGATIVE (NEGATIVE) 05/27/23 05/27/23 05/27/23 Range/Units 16:54 16:54 17:25 WBC (4.0-10.5) x10^3/uL RBC (4.1-5.6) x10^6/uL Hgb (12.5-18.0) g/dL Hct (42-50) % MCV (78-100) fL MCH (26-32) pg MCHC (32-36) g/dL RDW (11.5-14.0) % Plt Count (150-450) x10^3/uL MPV (7.5-11.0) fL Gran % (36.0-66.0) % Immature Gran % (Auto) (0.00-0.4) % Nucleat RBC Rel Count (0.00-0.1) % Eos # (Auto) (0-0.5) x10^3/uL Immature Gran # (Auto) (0.00-0.03) x10^3u/L Absolute Lymphs (auto) (1.0-4.6) x10^3/uL Absolute Monos (auto) (0.0-1.3) x10^3/uL Absolute Nucleated RBC (0.00-0.01) x10^3u/L Lymphocytes % (24.0-44.0) % Monocytes % (0.0-12.0) % Eosinophils % (0.00-5.0) % Basophils % (0.0-0.4) % Absolute Granulocytes (1.4-6.9) x10^3/uL Basophils # (0-0.4) x10^3/uL PT (9.4-12.5) SECONDS INR (0.8-3.0) APTT (25.1-36.5) SECONDS Puncture Site LEFT RADIAL pCO2 38 (35-45) mmHg pO2 49 L* (75-100) mmHg Base Excess 3.8 H (-2.0-2.0) O2 Saturation 82.1 L (94-100) g/dF ABG pH 7.47 H (7.35-7.45) ABG HCO3 27.7 (22-28) ABG O2 Sat (Measured) 83.0 L (95-100) % Devin Test YES A-a Gradient 53 a/A Ratio 0.48 Hemoglobin 10.9 Carboxyhemoglobin 1.1 (0.0-6.9) % THgb Methemoglobin 0.0 L (1.4-1.5) % Temperature 37.0 C POC O2 Flow Rate 21 % Sodium (137-145) mmol/L Potassium 4.1 (3.5-5.1) mmol/L Chloride (98-107) mmol/L Carbon Dioxide (22-30) mmol/L Anion Gap (5-15) MEQ/L BUN (9-20) mg/dL Creatinine (0.66-1.25) mg/dL Estimated GFR ML/MIN Glucose (74-106) mg/dL POC Glucometer (74 to 106) mg/dL Lactic Acid (0.4-2.0) Calcium (8.4-10.2) mg/dL Magnesium (1.6-2.3) mg/dL Total Bilirubin (0.2-1.3) mg/dL AST (17-59) U/L ALT (0-50) U/L Alkaline Phosphatase (38-126) U/L Ammonia (9-30) umol/L Troponin I (0.000-0.034) ng/mL NT-Pro-B Natriuret Pep (<300) pg/mL Serum Total Protein (6.3-8.2) g/dL Albumin (3.5-5.0) g/dL Urine Color Yellow (Yellow) Urine Appearance Clear (Clear) Urine pH 6.0 (4.6-8.0) Ur Specific [employer] 1.015 (1.005-1.030) Urine Protein 100 A (Negative) Urine Glucose (UA) >=1000 A (Negative) mg/dL Urine Ketones Negative (Negative) Urine Blood Negative (Negative) Urine Nitrite Negative (Negative) Urine Bilirubin Negative (Negative) Urine Urobilinogen 0.2 (0.2) mg/dL Ur Leukocyte Esterase Negative (Negative) U Hyaline Cast (Auto) NONE SEEN (0-2) /LPF Urine Microscopic RBC 0-2 (0-5) /HPF Urine Microscopic WBC 0-2 (0-5) /HPF Ur Epithelial Cells None Seen (None Seen) /HPF Urine Bacteria None Seen (None Seen) /HPF Urine Culture Reflexed NO (NO) Urine Opiates Level POSITIVE A (NEGATIVE) Ur Methadone NEGATIVE (NEGATIVE) Urine Barbiturates NEGATIVE (NEGATIVE) Ur Phencyclidine (PCP) NEGATIVE (NEGATIVE) Urine Amphetamine NEGATIVE (NEGATIVE) U Benzodiazepine Level NEGATIVE (NEGATIVE) Urine Cocaine NEGATIVE (NEGATIVE) Urine Marijuana (THC) NEGATIVE (NEGATIVE) Ethyl Alcohol (0-10) mg/dL Influenza Type A Ag (NEGATIVE) Influenza Type B Ag (NEGATIVE) RSV (PCR) (NEGATIVE) SARS-CoV-2 (PCR) (NEGATIVE) 05/27/23 05/27/23 05/27/23 Range/Units 18:15 21:41 22:15 WBC (4.0-10.5) x10^3/uL RBC (4.1-5.6) x10^6/uL Hgb (12.5-18.0) g/dL Hct (42-50) % MCV (78-100) fL MCH (26-32) pg MCHC (32-36) g/dL RDW (11.5-14.0) % Plt Count (150-450) x10^3/uL MPV (7.5-11.0) fL Gran % (36.0-66.0) % Immature Gran % (Auto) (0.00-0.4) % Nucleat RBC Rel Count (0.00-0.1) % Eos # (Auto) (0-0.5) x10^3/uL Immature Gran # (Auto) (0.00-0.03) x10^3u/L Absolute Lymphs (auto) (1.0-4.6) x10^3/uL Absolute Monos (auto) (0.0-1.3) x10^3/uL Absolute Nucleated RBC (0.00-0.01) x10^3u/L Lymphocytes % (24.0-44.0) % Monocytes % (0.0-12.0) % Eosinophils % (0.00-5.0) % Basophils % (0.0-0.4) % Absolute Granulocytes (1.4-6.9) x10^3/uL Basophils # (0-0.4) x10^3/uL PT (9.4-12.5) SECONDS INR (0.8-3.0) APTT (25.1-36.5) SECONDS Puncture Site pCO2 (35-45) mmHg pO2 (75-100) mmHg Base Excess (-2.0-2.0) O2 Saturation (94-100) g/dF ABG pH (7.35-7.45) ABG HCO3 (22-28) ABG O2 Sat (Measured) (95-100) % Devin Test A-a Gradient a/A Ratio Hemoglobin Carboxyhemoglobin (0.0-6.9) % THgb Methemoglobin (1.4-1.5) % Temperature C POC O2 Flow Rate % Sodium (137-145) mmol/L Potassium (3.5-5.1) mmol/L Chloride (98-107) mmol/L Carbon Dioxide (22-30) mmol/L Anion Gap (5-15) MEQ/L BUN (9-20) mg/dL Creatinine (0.66-1.25) mg/dL Estimated GFR ML/MIN Glucose (74-106) mg/dL POC Glucometer 61 L (74 to 106) mg/dL Lactic Acid (0.4-2.0) Calcium (8.4-10.2) mg/dL Magnesium (1.6-2.3) mg/dL Total Bilirubin (0.2-1.3) mg/dL AST (17-59) U/L ALT (0-50) U/L Alkaline Phosphatase (38-126) U/L Ammonia (9-30) umol/L Troponin I 0.013 0.013 (0.000-0.034) ng/mL NT-Pro-B Natriuret Pep (<300) pg/mL Serum Total Protein (6.3-8.2) g/dL Albumin (3.5-5.0) g/dL Urine Color (Yellow) Urine Appearance (Clear) Urine pH (4.6-8.0) Ur Specific [employer] (1.005-1.030) Urine Protein (Negative) Urine Glucose (UA) (Negative) mg/dL Urine Ketones (Negative) Urine Blood (Negative) Urine Nitrite (Negative) Urine Bilirubin (Negative) Urine Urobilinogen (0.2) mg/dL Ur Leukocyte Esterase (Negative) U Hyaline Cast (Auto) (0-2) /LPF Urine Microscopic RBC (0-5) /HPF Urine Microscopic WBC (0-5) /HPF Ur Epithelial Cells (None Seen) /HPF Urine Bacteria (None Seen) /HPF Urine Culture Reflexed (NO) Urine Opiates Level (NEGATIVE) Ur Methadone (NEGATIVE) Urine Barbiturates (NEGATIVE) Ur Phencyclidine (PCP) (NEGATIVE) Urine Amphetamine (NEGATIVE) U Benzodiazepine Level (NEGATIVE) Urine Cocaine (NEGATIVE) Urine Marijuana (THC) (NEGATIVE) Ethyl Alcohol (0-10) mg/dL Influenza Type A Ag (NEGATIVE) Influenza Type B Ag (NEGATIVE) RSV (PCR) (NEGATIVE) SARS-CoV-2 (PCR) (NEGATIVE) 05/27/23 05/27/23 05/28/23 Range/Units 23:58 Unknown 02:24 WBC (4.0-10.5) x10^3/uL RBC (4.1-5.6) x10^6/uL Hgb (12.5-18.0) g/dL Hct (42-50) % MCV (78-100) fL MCH (26-32) pg MCHC (32-36) g/dL RDW (11.5-14.0) % Plt Count (150-450) x10^3/uL MPV (7.5-11.0) fL Gran % (36.0-66.0) % Immature Gran % (Auto) (0.00-0.4) % Nucleat RBC Rel Count (0.00-0.1) % Eos # (Auto) (0-0.5) x10^3/uL Immature Gran # (Auto) (0.00-0.03) x10^3u/L Absolute Lymphs (auto) (1.0-4.6) x10^3/uL Absolute Monos (auto) (0.0-1.3) x10^3/uL Absolute Nucleated RBC (0.00-0.01) x10^3u/L Lymphocytes % (24.0-44.0) % Monocytes % (0.0-12.0) % Eosinophils % (0.00-5.0) % Basophils % (0.0-0.4) % Absolute Granulocytes (1.4-6.9) x10^3/uL Basophils # (0-0.4) x10^3/uL PT (9.4-12.5) SECONDS INR (0.8-3.0) APTT (25.1-36.5) SECONDS Puncture Site pCO2 (35-45) mmHg pO2 (75-100) mmHg Base Excess (-2.0-2.0) O2 Saturation (94-100) g/dF ABG pH (7.35-7.45) ABG HCO3 (22-28) ABG O2 Sat (Measured) (95-100) % Devin Test A-a Gradient a/A Ratio Hemoglobin Carboxyhemoglobin (0.0-6.9) % THgb Methemoglobin (1.4-1.5) % Temperature C POC O2 Flow Rate % Sodium (137-145) mmol/L Potassium (3.5-5.1) mmol/L Chloride (98-107) mmol/L Carbon Dioxide (22-30) mmol/L Anion Gap (5-15) MEQ/L BUN (9-20) mg/dL Creatinine (0.66-1.25) mg/dL Estimated GFR ML/MIN Glucose (74-106) mg/dL POC Glucometer 82 90 (74 to 106) mg/dL Lactic Acid (0.4-2.0) Calcium (8.4-10.2) mg/dL Magnesium (1.6-2.3) mg/dL Total Bilirubin (0.2-1.3) mg/dL AST (17-59) U/L ALT (0-50) U/L Alkaline Phosphatase (38-126) U/L Ammonia < 9 L (9-30) umol/L Troponin I (0.000-0.034) ng/mL NT-Pro-B Natriuret Pep (<300) pg/mL Serum Total Protein (6.3-8.2) g/dL Albumin (3.5-5.0) g/dL Urine Color (Yellow) Urine Appearance (Clear) Urine pH (4.6-8.0) Ur Specific [employer] [place] (1.005-1.030) Urine Protein (Negative) Urine Glucose (UA) (Negative) mg/dL Urine Ketones (Negative) Urine Blood (Negative) Urine Nitrite (Negative) Urine Bilirubin (Negative) Urine Urobilinogen (0.2) mg/dL Ur Leukocyte Esterase (Negative) U Hyaline Cast (Auto) (0-2) /LPF Urine Microscopic RBC (0-5) /HPF Urine Microscopic WBC (0-5) /HPF Ur Epithelial Cells (None Seen) /HPF Urine Bacteria (None Seen) /HPF Urine Culture Reflexed (NO) Urine Opiates Level (NEGATIVE) Ur Methadone (NEGATIVE) Urine Barbiturates (NEGATIVE) Ur Phencyclidine (PCP) (NEGATIVE) Urine Amphetamine (NEGATIVE) U Benzodiazepine Level (NEGATIVE) Urine Cocaine (NEGATIVE) Urine Marijuana (THC) (NEGATIVE) Ethyl Alcohol (0-10) mg/dL Influenza Type A Ag (NEGATIVE) Influenza Type B Ag (NEGATIVE) RSV (PCR) (NEGATIVE) SARS-CoV-2 (PCR) (NEGATIVE) 05/28/23 Range/Units 04:07 WBC (4.0-10.5) x10^3/uL RBC (4.1-5.6) x10^6/uL Hgb (12.5-18.0) g/dL Hct (42-50) % MCV (78-100) fL MCH (26-32) pg MCHC (32-36) g/dL RDW (11.5-14.0) % Plt Count (150-450) x10^3/uL MPV (7.5-11.0) fL Gran % (36.0-66.0) % Immature Gran % (Auto) (0.00-0.4) % Nucleat RBC Rel Count (0.00-0.1) % Eos # (Auto) (0-0.5) x10^3/uL Immature Gran # (Auto) (0.00-0.03) x10^3u/L Absolute Lymphs (auto) (1.0-4.6) x10^3/uL Absolute Monos (auto) (0.0-1.3) x10^3/uL Absolute Nucleated RBC (0.00-0.01) x10^3u/L Lymphocytes % (24.0-44.0) % Monocytes % (0.0-12.0) % Eosinophils % (0.00-5.0) % Basophils % (0.0-0.4) % Absolute Granulocytes (1.4-6.9) x10^3/uL Basophils # (0-0.4) x10^3/uL PT (9.4-12.5) SECONDS INR (0.8-3.0) APTT (25.1-36.5) SECONDS Puncture Site pCO2 (35-45) mmHg pO2 (75-100) mmHg Base Excess (-2.0-2.0) O2 Saturation (94-100) g/dF ABG pH (7.35-7.45) ABG HCO3 (22-28) ABG O2 Sat (Measured) (95-100) % Devin Test A-a Gradient a/A Ratio Hemoglobin Carboxyhemoglobin (0.0-6.9) % THgb Methemoglobin (1.4-1.5) % Temperature C POC O2 Flow Rate % Sodium (137-145) mmol/L Potassium (3.5-5.1) mmol/L Chloride (98-107) mmol/L Carbon Dioxide (22-30) mmol/L Anion Gap (5-15) MEQ/L BUN (9-20) mg/dL Creatinine (0.66-1.25) mg/dL Estimated GFR ML/MIN Glucose (74-106) mg/dL POC Glucometer 93 (74 to 106) mg/dL Lactic Acid (0.4-2.0) Calcium (8.4-10.2) mg/dL Magnesium (1.6-2.3) mg/dL Total Bilirubin (0.2-1.3) mg/dL AST (17-59) U/L ALT (0-50) U/L Alkaline Phosphatase (38-126) U/L Ammonia (9-30) umol/L Troponin I (0.000-0.034) ng/mL NT-Pro-B Natriuret Pep (<300) pg/mL Serum Total Protein (6.3-8.2) g/dL Albumin (3.5-5.0) g/dL Urine Color (Yellow) Urine Appearance (Clear) Urine pH (4.6-8.0) Ur Specific [employer] (1.005-1.030) Urine Protein (Negative) Urine Glucose (UA) (Negative) mg/dL Urine Ketones (Negative) Urine Blood (Negative) Urine Nitrite (Negative) Urine Bilirubin (Negative) Urine Urobilinogen (0.2) mg/dL Ur Leukocyte Esterase (Negative) U Hyaline Cast (Auto) (0-2) /LPF Urine Microscopic RBC (0-5) /HPF Urine Microscopic WBC (0-5) /HPF Ur Epithelial Cells (None Seen) /HPF Urine Bacteria (None Seen) /HPF Urine Culture Reflexed (NO) Urine Opiates Level (NEGATIVE) Ur Methadone (NEGATIVE) Urine Barbiturates (NEGATIVE) Ur Phencyclidine (PCP) (NEGATIVE) Urine Amphetamine (NEGATIVE) U Benzodiazepine Level (NEGATIVE) Urine Cocaine (NEGATIVE) Urine Marijuana (THC) (NEGATIVE) Ethyl Alcohol (0-10) mg/dL Influenza Type A Ag (NEGATIVE) Influenza Type B Ag (NEGATIVE) RSV (PCR) (NEGATIVE) SARS-CoV-2 (PCR) (NEGATIVE) Radiology Exams: Radiology Procedures Category Date Time Status ABDOMEN WITHOUT CONTRAST [CT] Routine Exams 05/28/23 09:00 Ordered CHEST WITHOUT CONTRAST [CT] Stat Exams 05/27/23 14:04 Completed HAND (MINIMUM 3 VIEWS) Stat Exams 05/27/23 14:07 Completed HEAD WITHOUT CONTRAST [CT] Stat Exams 05/27/23 14:04 Completed MRI BRAIN W/O CONTRAST [MRI] Routine Exams 05/28/23 09:00 Ordered Multi-Disciplinary Progress Notes: Multi-Disciplinary Progress Notes 05/27/23 23:19 Respiratory Note by Kin Wilson AND COW PUNCHER STATED THAT PT SATS WERE 85% ON RA WHEN PT ARRIVED TO THE FLOOR AND SO THEY PLACED PT ON 2LPM O2 NC W/ HUMIDITY. PT REMAINS ON 2LPM AT THIS TIME, PT SLEEPING, SATS ARE CURRENTLY 96% ON 2LPM O2 NC. Initialized on 05/27/23 23:19 - END OF NOTE Assessment/Plan (1) Altered mental status Current Visit: Yes Status: Acute Assessment & Plan: -Continues to be confused; CT Head negative; Cr will not allow for CTA; MRI ordered for AM; ammonia and pCO2 negative; EtOH level negative; UDS ordered CT A/P ordered with distended belly - Hold lasix and any analgesics which may alter his mental status - Gentle fluids in form of D5 - NPO except meds - hold diabetic regimen; CBG q2; D5LR 05/28: -A&O x 3 this morning -Will d/c D5 -Add carb cons diet -Accuchecks changed to ACHS -MRI pending Code(s): R41.82 - ALTERED MENTAL STATUS, UNSPECIFIED (2) Anemia Current Visit: Yes Status: Acute Assessment & Plan: -At baseline, will continue to monitor and replace as appropriate if hgb <7 Code(s): D64.9 - ANEMIA, UNSPECIFIED (3) Hypoglycemia Current Visit: Yes Status: Acute Assessment & Plan: NPO except meds - hold diabetic regimen; CBG q2; D5LR 05/28: -Resolved, will continue SSI with carb consistent diet Code(s): E16.2 - HYPOGLYCEMIA, UNSPECIFIED (4) Acute on chronic renal failure Current Visit: No Status: Acute Assessment & Plan: -Baseline around 1.7-2.5, near baseline -Gentle hydration -Avoid nephrotoxic medications Code(s): N17.9 - ACUTE KIDNEY FAILURE, UNSPECIFIED; N18.9 - CHRONIC KIDNEY DISEASE, UNSPECIFIED (5) Acute respiratory failure with hypoxia Current Visit: No Status: Acute Assessment & Plan: Wean oxygen to maintain SaO2 > 90%; CT clear of disease; lung exam without wheezes; PRN nebs for now Code(s): J96.01 - ACUTE RESPIRATORY FAILURE WITH HYPOXIA (6) Afib Current Visit: No Status: Acute Assessment & Plan: -Continue Eliquis/ metoprolol Code(s): I48.91 - UNSPECIFIED ATRIAL FIBRILLATION (7) Hypertension Current Visit: No Status: Acute Assessment & Plan: -Stable. Continue home meds Code(s): I10 - ESSENTIAL (PRIMARY) HYPERTENSION (8) On anticoagulant therapy Current Visit: No Status: Chronic Assessment & Plan: -Eliquis, will continue Code(s): Z79.01 - SNF (CURRENT) USE OF ANTICOAGULANTS (9) Type 2 diabetes mellitus Current Visit: No Status: Chronic Qualifiers: Assessment & Plan: -Patient has been hypoglycemic and is npo currently, will hold diabetic meds, give D5, continue to monitor 05/28: -Patient now A&O x 3, blood glucose levels stable, will resume diet with SSI low dose for now, monitor closely
[2023-05-28 05:50] LABS: Absolute Neutrophil Ct (ANC) 5.53 x10^3/uL (1.4-6.9); BASOPHIL % 1.3 % (0.0-0.4); Eosinophil % 4.9 % (0.00-5.0); Eosinophil (Absolute #) 0.38 x10^3/uL (0-0.5); Hematocrit 33.7 % (42-50); Hemoglobin 10.2 g/dL (12.5-18.0); IMMATURE GRAN # 0.05 x10^3u/L (0.00-0.03); IMMATURE GRAN % 0.6 % (0.00-0.4); Lymphocyte (Absolute #) 1.37 x10^3/uL (1.0-4.6); Lymphocytes % 17.6 % (24.0-44.0); Mean Cell Volume 90.1 fL (78-100); Mean Corpuscular Hemoglobin 27.3 pg (26-32); Mean Corpuscular Hgb Concent. 30.3 g/dL (32-36); Mean Platelet Volume 11.8 fL (7.5-11.0); Monocyte (Absolute #) 0.37 x10^3/uL (0.0-1.3); Monocytes % 4.7 % (0.0-12.0); Neutrophil % 70.9 % (36.0-66.0); Platelet Count 158 x10^3/uL (150-450); Red Blood Count 3.74 x10^6/uL (4.1-5.6); Red Cell Distribution Width 16.4 % (11.5-14.0); White Blood Count 7.8 x10^3/uL (4.0-10.5)
[2023-05-28 06:19] LABS: ALBUMIN 3.6 g/dL (3.5-5.0); ANION GAP 11.1 MEQ/L (5-15); BILIRUBIN,TOTAL 0.4 mg/dL (0.2-1.3); Calcium 9.7 mg/dL (8.4-10.2); Creatinine 1 2.16 mg/dL (0.66-1.25); EST GLOMERULAR FILTRATION RATE 29.8 ML/MIN; Potassium 3.9 mmol/L (3.5-5.1); Total Protein 6.9 g/dL (6.3-8.2)
[2023-05-28] MEDS ORDERED: TRANDATE 20 MG/4 ML SYRINGE IV PRN (07:31)
--- NOTE | 2023-05-28 07:43 | XRAY ---
CLINICAL HISTORY:distended belly COMPARISON:None TECHNIQUE:Contiguous axial images were obtained from the level of the diaphragm to the pubic symphysis without intravenous or oral contrast. Coronal and sagittal reconstructions were likewise performed and indicated to increase the sensitivity for detecting clinically relevant pathology. CT scan was performed according to ALARA (as low as reasonable achievable) FINDINGS: Linear atelectatic bands thickenings are noted involving basal segment of both lower lobes. Diffuse atherosclerosis with extensive calcifications are noted involving visualized abdominal aorta and its branches. Few tiny calcific foci are noted involving spleen. Evaluation of the abdominal and pelvic visceral organs is limited without intravenous contrast. The unenhanced liver, pancreas, and adrenal glands are grossly unremarkable. Gallbladder is not seen -post cholecystectomy status. The kidneys are normal in size and attenuation without obvious calcification. There is no hydronephrosis.Few small well defined exophytic cysts are noted in both kidney-largest measure about 20 x 19 mm on right side and 22 x 22 mm on left side. Mild bilateral perinephric fat stranding is seen. The ureters are normal in caliber. No adenopathy or fluid collections are seen. No evidence of focal or diffuse bowel wall thickening or evidence of bowel obstruction is seen. The urinary bladder is normal in contour. Pelvic viscera are grossly unremarkable. No aggressive appearing osseous lesions are identified. IMPRESSION: 1. Linear atelectatic bands thickenings are noted involving basal segment of both lower lobes.-Sequelae of previous insult.Few small well defined exophytic cysts are noted in both kidney-simple cysts likely.Diffuse atherosclerosis with extensive calcifications are noted involving visualized abdominal aorta and its branches. Few tiny calcific foci are noted involving spleen. 2. No obvious acute intra-abdominal abnormality detected. Electronically Signed by: Dr. Ronald Murrieta MD. (05/28/2023 07:39:28 EST)
[2023-05-28] MEDS ORDERED: METHYLPHENIDATE HCL 20 MG PO SCH (10:00)
[2023-05-28] MEDS: Ritalin 5 MG PO SCH (10:10)
[2023-05-28] MEDS: FEOSOL 325 MG PO SCH (10:10)
[2023-05-28] MEDS: Flomax 0.4 MG PO SCH (10:10)
[2023-05-28] MEDS: Imdur 60MG PO SCH (10:11)
[2023-05-28] MEDS: ELIQUIS 2.5 MG TABLET PO SCH ×2 (10:11→20:59)
[2023-05-28] MEDS: Carafate 1 GM PO SCH ×5 (10:11→20:58)
[2023-05-28] MEDS: NORVASC 5 MG PO SCH (10:11)
[2023-05-28] MEDS: Lopressor 25MG Tab PO SCH ×2 (10:11→20:58)
[2023-05-28] MEDS: Protonix 40MG Tablet PO SCH (10:11)
[2023-05-28] MEDS: Sodium Chloride 0.9% 1000 ML 1,000 ML IV SCH (13:38)
[2023-05-28] MEDS: HUMALOG SQ PRN ×2 (17:35→21:10)
--- NOTE | 2023-05-29 05:28 | PCM.NOTE ---
Date and Time: 05/29/23 0527 Subjective Assessment: Mr. Domínguez is an 83 year-old gentleman with CAD s/p CABG + PCI, CKD II/III, emphysematous COPD, prior CVA, HTN, HLD, DM2, chronic anemia, and AFib on eliquis who presents with altered mental status and shortness of breath. He presented in a similar fashion to Eliud a month ago and got transferred for higher level of care - I am unsure what work-up was done then as family is not present. Today, he presents with altered mental status which according to his family has been ongoing for the last 24 hours. Upon arrival, he was A/O x 0, but after some fluids he apparently "became more alert." Laboratory data was remarkable for a Cr 2.51 and chronic anemia, while imaging was unrevealing. According to chart review the family declined transfer stating that he is DNR - Chart reveals Full Code. On my examination, he remains confused and A/O x 0-1. 05/28: Met with patient and family bedside. No overnight events. Patient with no complaints today. Patient now at baseline mentation, A&O x 3. Discussed CT findings which so far have been unremarkable. MRI of the brain is pending. Patient and family requesting a regular diet. Patient states abdomen appears less distended than yesterday. On exam, mild distention is noted, with mild firmness. Patient unable to remember when last BM was. Denies fever,cough, cp, abdominal pain, WILKINSON, dizziness, N/V/D. 05/29: Met with patient bedside. Overnight events noted of delirium. RN states patient became disorientated in the evening, confused about where he was, felt like he was being held hostage by nursing staff. Patient does have some reported history from family of similar episodes. Patient may benefit from OP neurology workup for AD. Patient now A&O x 3 during interview. Discussed labs, creat now at baseline. MRI pending for tomorrow, most likely will discharge tomorrow. - Review of Systems Constitutional: Lethargy, Weakness Eyes: No Symptoms Ears, Nose, & Throat: No Symptoms Respiratory: Cough, Short Of Breath Cardiac: No Symptoms Abdominal/Gastrointestinal: No Symptoms Genitourinary Symptoms: No Symptoms Musculoskeletal: No Symptoms Skin: No Symptoms Neurological: No Symptoms Psychological: Hallucinations, Memory Loss Endocrine: No Symptoms Objective Exam General Appearance: no apparent distress Neurologic Exam: alert, oriented x 3, cooperative Skin Exam: normal color Eye Exam: PERRL Ears, Nose, Throat Exam: normal ENT inspection Neck Exam: normal inspection Respiratory Exam: diminished breath sounds Cardiovascular Exam: regular rate/rhythm, normal heart sounds Gastrointestinal/Abdomen Exam: soft, normal bowel sounds Extremity Exam: swelling (L>R) Back Exam: normal inspection OBJECTIVE DATA Vital Signs: Vital Signs - 24 hr Temp Pulse Resp BP BP Pulse Ox 05/29/23 04:04 97.7 F 86 20 173/78 95 05/28/23 23:31 97.7 F 75 18 162/70 95 05/28/23 20:00 98.7 F 71 20 185/77 94 L 05/28/23 19:55 83 16 93 L 05/28/23 17:00 98.4 F 54 L 17 140/65 92 L 05/28/23 13:00 98.4 F 54 L 17 140/65 92 L 05/28/23 09:30 64 176/74 05/28/23 08:58 63 16 92 L 05/28/23 07:02 98.6 F 66 17 187/77 97 Pain Assessment - Last Documented Pain Intensity 0 Intake and Output: Intake & Output 05/26/23 05/27/23 05/28/23 05/29/23 11:59 11:59 11:59 11:59 Intake Total 550 2096 Balance 550 2096 Weight 90.6 kg Lab Results: Lab Results-Last 24 Hours 05/28/23 05/28/23 05/28/23 Range/Units 05:24 05:24 05:24 WBC 7.8 (4.0-10.5) x10^3/uL RBC 3.74 L (4.1-5.6) x10^6/uL Hgb 10.2 L (12.5-18.0) g/dL Hct 33.7 L (42-50) % MCV 90.1 (78-100) fL MCH 27.3 (26-32) pg MCHC 30.3 L (32-36) g/dL RDW 16.4 H (11.5-14.0) % Plt Count 158 (150-450) x10^3/uL MPV 11.8 H (7.5-11.0) fL Gran % 70.9 H (36.0-66.0) % Immature Gran % (Auto) 0.6 H (0.00-0.4) % Nucleat RBC Rel Count 0.0 (0.00-0.1) % Eos # (Auto) 0.38 (0-0.5) x10^3/uL Immature Gran # (Auto) 0.05 H (0.00-0.03) x10^3u/L Absolute Lymphs (auto) 1.37 (1.0-4.6) x10^3/uL Absolute Monos (auto) 0.37 (0.0-1.3) x10^3/uL Absolute Nucleated RBC 0.00 (0.00-0.01) x10^3u/L Lymphocytes % 17.6 L (24.0-44.0) % Monocytes % 4.7 (0.0-12.0) % Eosinophils % 4.9 (0.00-5.0) % Basophils % 1.3 (0.0-0.4) % Absolute Granulocytes 5.53 (1.4-6.9) x10^3/uL Basophils # 0.10 (0-0.4) x10^3/uL Sodium 142 (137-145) mmol/L Potassium 3.9 (3.5-5.1) mmol/L Chloride 111 H (98-107) mmol/L Carbon Dioxide 23 (22-30) mmol/L Anion Gap 11.1 (5-15) MEQ/L BUN 31 H (9-20) mg/dL Creatinine 2.16 H (0.66-1.25) mg/dL Estimated GFR 29.8 ML/MIN Glucose 114 H (74-106) mg/dL POC Glucometer (74 to 106) mg/dL Hemoglobin A1c 7.86 H (4.5-6.0) % Calcium 9.7 (8.4-10.2) mg/dL Magnesium 2.0 (1.6-2.3) mg/dL Total Bilirubin 0.40 (0.2-1.3) mg/dL AST 27 (17-59) U/L ALT 15 (0-50) U/L Alkaline Phosphatase 53 (38-126) U/L Serum Total Protein 6.9 (6.3-8.2) g/dL Albumin 3.6 (3.5-5.0) g/dL 05/28/23 05/28/23 05/28/23 Range/Units 08:58 11:23 15:39 WBC (4.0-10.5) x10^3/uL RBC (4.1-5.6) x10^6/uL Hgb (12.5-18.0) g/dL Hct (42-50) % MCV (78-100) fL MCH (26-32) pg MCHC (32-36) g/dL RDW (11.5-14.0) % Plt Count (150-450) x10^3/uL MPV (7.5-11.0) fL Gran % (36.0-66.0) % Immature Gran % (Auto) (0.00-0.4) % Nucleat RBC Rel Count (0.00-0.1) % Eos # (Auto) (0-0.5) x10^3/uL Immature Gran # (Auto) (0.00-0.03) x10^3u/L Absolute Lymphs (auto) (1.0-4.6) x10^3/uL Absolute Monos (auto) (0.0-1.3) x10^3/uL Absolute Nucleated RBC (0.00-0.01) x10^3u/L Lymphocytes % (24.0-44.0) % Monocytes % (0.0-12.0) % Eosinophils % (0.00-5.0) % Basophils % (0.0-0.4) % Absolute Granulocytes (1.4-6.9) x10^3/uL Basophils # (0-0.4) x10^3/uL Sodium (137-145) mmol/L Potassium (3.5-5.1) mmol/L Chloride (98-107) mmol/L Carbon Dioxide (22-30) mmol/L Anion Gap (5-15) MEQ/L BUN (9-20) mg/dL Creatinine (0.66-1.25) mg/dL Estimated GFR ML/MIN Glucose (74-106) mg/dL POC Glucometer 109 H 147 H 262 H (74 to 106) mg/dL Hemoglobin A1c (4.5-6.0) % Calcium (8.4-10.2) mg/dL Magnesium (1.6-2.3) mg/dL Total Bilirubin (0.2-1.3) mg/dL AST (17-59) U/L ALT (0-50) U/L Alkaline Phosphatase (38-126) U/L Serum Total Protein (6.3-8.2) g/dL Albumin (3.5-5.0) g/dL 05/28/23 Range/Units 21:05 WBC (4.0-10.5) x10^3/uL RBC (4.1-5.6) x10^6/uL Hgb (12.5-18.0) g/dL Hct (42-50) % MCV (78-100) fL MCH (26-32) pg MCHC (32-36) g/dL RDW (11.5-14.0) % Plt Count (150-450) x10^3/uL MPV (7.5-11.0) fL Gran % (36.0-66.0) % Immature Gran % (Auto) (0.00-0.4) % Nucleat RBC Rel Count (0.00-0.1) % Eos # (Auto) (0-0.5) x10^3/uL Immature Gran # (Auto) (0.00-0.03) x10^3u/L Absolute Lymphs (auto) (1.0-4.6) x10^3/uL Absolute Monos (auto) (0.0-1.3) x10^3/uL Absolute Nucleated RBC (0.00-0.01) x10^3u/L Lymphocytes % (24.0-44.0) % Monocytes % (0.0-12.0) % Eosinophils % (0.00-5.0) % Basophils % (0.0-0.4) % Absolute Granulocytes (1.4-6.9) x10^3/uL Basophils # (0-0.4) x10^3/uL Sodium (137-145) mmol/L Potassium (3.5-5.1) mmol/L Chloride (98-107) mmol/L Carbon Dioxide (22-30) mmol/L Anion Gap (5-15) MEQ/L BUN (9-20) mg/dL Creatinine (0.66-1.25) mg/dL Estimated GFR ML/MIN Glucose (74-106) mg/dL POC Glucometer 236 H (74 to 106) mg/dL Hemoglobin A1c (4.5-6.0) % Calcium (8.4-10.2) mg/dL Magnesium (1.6-2.3) mg/dL Total Bilirubin (0.2-1.3) mg/dL AST (17-59) U/L ALT (0-50) U/L Alkaline Phosphatase (38-126) U/L Serum Total Protein (6.3-8.2) g/dL Albumin (3.5-5.0) g/dL Radiology Exams: Radiology Procedures Category Date Time Status ABDOMEN AND PELVIS W/0 CONTRAS [CT] Routine Exams 05/28/23 06:43 Completed CHEST WITHOUT CONTRAST [CT] Stat Exams 05/27/23 14:04 Completed HAND (MINIMUM 3 VIEWS) Stat Exams 05/27/23 14:07 Completed HEAD WITHOUT CONTRAST [CT] Stat Exams 05/27/23 14:04 Completed MRI BRAIN W/O CONTRAST [MRI] Routine Exams 05/28/23 09:00 Ordered Assessment/Plan (1) Altered mental status Current Visit: Yes Status: Acute Assessment & Plan: -Continues to be confused; CT Head negative; Cr will not allow for CTA; MRI ordered for AM; ammonia and pCO2 negative; EtOH level negative; UDS ordered CT A/P ordered with distended belly - Hold lasix and any analgesics which may alter his mental status - Gentle fluids in form of D5 - NPO except meds - hold diabetic regimen; CBG q2; D5LR 05/28: -A&O x 3 this morning -Will d/c D5 -Add carb cons diet -Accuchecks changed to ACHS -MRI pending 05/29: -episode of delusion overnight, family reports this happens often, would like to see neurology OP, no official diagnosis of dementia/AD -MRI pending for tomorrow Code(s): R41.82 - ALTERED MENTAL STATUS, UNSPECIFIED (2) Anemia Current Visit: Yes Status: Acute Assessment & Plan: -At baseline, will continue to monitor and replace as appropriate if hgb <7 Code(s): D64.9 - ANEMIA, UNSPECIFIED (3) Hypoglycemia Current Visit: Yes Status: Acute Assessment & Plan: NPO except meds - hold diabetic regimen; CBG q2; D5LR 05/28: -Resolved, will continue SSI with carb consistent diet Code(s): E16.2 - HYPOGLYCEMIA, UNSPECIFIED (4) Acute on chronic renal failure Current Visit: No Status: Acute Assessment & Plan: -Baseline around 1.7-2.5, near baseline -Gentle hydration -Avoid nephrotoxic medications 05/29: -Back to baseline Code(s): N17.9 - ACUTE KIDNEY FAILURE, UNSPECIFIED; N18.9 - CHRONIC KIDNEY DISEASE, UNSPECIFIED (5) Acute respiratory failure with hypoxia Current Visit: No Status: Acute Assessment & Plan: Wean oxygen to maintain SaO2 > 90%; CT clear of disease; lung exam without wheezes; PRN nebs for now Code(s): J96.01 - ACUTE RESPIRATORY FAILURE WITH HYPOXIA (6) Afib Current Visit: No Status: Acute Assessment & Plan: -Continue Eliquis/ metoprolol Code(s): I48.91 - UNSPECIFIED ATRIAL FIBRILLATION (7) Hypertension Current Visit: No Status: Acute Assessment & Plan: -Stable. Continue home meds Code(s): I10 - ESSENTIAL (PRIMARY) HYPERTENSION (8) On anticoagulant therapy Current Visit: No Status: Chronic Assessment & Plan: -Eliquis, will continue Code(s): Z79.01 - DIVER PUMPER (CURRENT) USE OF ANTICOAGULANTS (9) Type 2 diabetes mellitus Current Visit: No Status: Chronic Qualifiers: Assessment & Plan: -Patient has been hypoglycemic and is npo currently, will hold diabetic meds, give D5, continue to monitor 05/28: -Patient now A&O x 3, blood glucose levels stable, will resume diet with SSI low dose for now, monitor closely Additional CC's: Dr. JUMA LANE Code(s): R41.82 - ALTERED MENTAL STATUS, UNSPECIFIED (2) Anemia Current Visit: Yes Status: Acute Code(s): D64.9 - ANEMIA, UNSPECIFIED (3) Hypoglycemia Current Visit: Yes Status: Acute Code(s): E16.2 - HYPOGLYCEMIA, UNSPECIFIED (4) Acute on chronic renal failure Current Visit: No Status: Acute Code(s): N17.9 - ACUTE KIDNEY FAILURE, UNSPECIFIED; N18.9 - CHRONIC KIDNEY DISEASE, UNSPECIFIED (5) Acute respiratory failure with hypoxia Current Visit: No Status: Acute Code(s): J96.01 - ACUTE RESPIRATORY FAILURE WITH HYPOXIA (6) Afib Current Visit: No Status: Acute Code(s): I48.91 - UNSPECIFIED ATRIAL FIBRILLATION (7) Hypertension Current Visit: No Status: Acute Code(s): I10 - ESSENTIAL (PRIMARY) HYPERTENSION (8) On anticoagulant therapy Current Visit: No Status: Chronic Code(s): Z79.01 - MCC (CURRENT) USE OF ANTICOAGULANTS (9) Type 2 diabetes mellitus Current Visit: No Status: Chronic Qualifiers:
[2023-05-29 05:48] LABS: Hematocrit 37.7 % (42-50); Hemoglobin 11.8 g/dL (12.5-18.0); Mean Cell Volume 88.7 fL (78-100); Mean Corpuscular Hemoglobin 27.8 pg (26-32); Mean Corpuscular Hgb Concent. 31.3 g/dL (32-36); Mean Platelet Volume 11.2 fL (7.5-11.0); Platelet Count 178 x10^3/uL (150-450); Red Blood Count 4.25 x10^6/uL (4.1-5.6); Red Cell Distribution Width 15.6 % (11.5-14.0); White Blood Count 8.8 x10^3/uL (4.0-10.5)
[2023-05-29 06:15] LABS: ALBUMIN 4.2 g/dL (3.5-5.0); ANION GAP 15.1 MEQ/L (5-15); BILIRUBIN,TOTAL 0.5 mg/dL (0.2-1.3); Calcium 9.9 mg/dL (8.4-10.2); Creatinine 1 1.77 mg/dL (0.66-1.25); EST GLOMERULAR FILTRATION RATE 37.9 ML/MIN; Total Protein 7.8 g/dL (6.3-8.2)
[2023-05-29] MEDS: Carafate 1 GM PO SCH ×4 (08:38→22:35)
[2023-05-29] MEDS: FEOSOL 325 MG PO SCH (10:32)
[2023-05-29] MEDS: Imdur 60MG PO SCH (10:32)
[2023-05-29] MEDS: ELIQUIS 2.5 MG TABLET PO SCH ×2 (10:32→22:35)
[2023-05-29] MEDS: Protonix 40MG Tablet PO SCH (10:32)
[2023-05-29] MEDS: Flomax 0.4 MG PO SCH (10:32)
[2023-05-29] MEDS: NORVASC 5 MG PO SCH (10:32)
[2023-05-29] MEDS: Lopressor 25MG Tab PO SCH ×2 (10:32→22:35)
[2023-05-29] MEDS: Ritalin 5 MG PO SCH (10:33)
[2023-05-29] MEDS: Vitamin B-12 500 MCG PO SCH (10:33)
[2023-05-29] MEDS: HUMALOG SQ PRN (13:28)
[2023-05-29] MEDS: TYLENOL 325 MG PO PRN (18:32)
[2023-05-29] MEDS: Sodium Chloride 0.9% 1000 ML 1,000 ML IV SCH (23:31)
[2023-05-30 05:06] LABS: Hematocrit 36.8 % (42-50); Hemoglobin 11.5 g/dL (12.5-18.0); Mean Cell Volume 88.5 fL (78-100); Mean Corpuscular Hemoglobin 27.6 pg (26-32); Mean Corpuscular Hgb Concent. 31.3 g/dL (32-36); Platelet Count 197 x10^3/uL (150-450); Red Blood Count 4.16 x10^6/uL (4.1-5.6); Red Cell Distribution Width 15.4 % (11.5-14.0); White Blood Count 7.6 x10^3/uL (4.0-10.5)
[2023-05-30 05:28] LABS: ALBUMIN 3.6 g/dL (3.5-5.0); ANION GAP 15.5 MEQ/L (5-15); BILIRUBIN,TOTAL 0.5 mg/dL (0.2-1.3); Calcium 9.3 mg/dL (8.4-10.2); Creatinine 1 1.76 mg/dL (0.66-1.25); EST GLOMERULAR FILTRATION RATE 38.1 ML/MIN; Potassium 4.1 mmol/L (3.5-5.1); Total Protein 6.8 g/dL (6.3-8.2)
[2023-05-30 06:50] VITALS: O2SAT 94
[2023-05-30] MEDS: TYLENOL 325 MG PO PRN (08:49)
[2023-05-30] MEDS: NORVASC 5 MG PO SCH (08:49)
[2023-05-30] MEDS: Flomax 0.4 MG PO SCH (08:54)
[2023-05-30] MEDS: Ritalin 5 MG PO SCH (08:54)
[2023-05-30] MEDS: Lopressor 25MG Tab PO SCH (08:55)
[2023-05-30] MEDS: ELIQUIS 2.5 MG TABLET PO SCH (08:55)
[2023-05-30] MEDS: Vitamin B-12 500 MCG PO SCH (08:55)
[2023-05-30] MEDS: Imdur 60MG PO SCH (08:55)
[2023-05-30] MEDS: FEOSOL 325 MG PO SCH (08:56)
[2023-05-30] MEDS: Carafate 1 GM PO SCH ×2 (08:56→13:26)
[2023-05-30] MEDS: Protonix 40MG Tablet PO SCH (08:56)
[2023-05-30] MEDS ORDERED: Zofran 4 MG/2 ML VIAL IV PRN (09:04)
[2023-05-30 11:52] VITALS: BP 129/61; PULSE 84; RESP 18; TEMP 98.8
--- NOTE | 2023-05-30 11:55 | PCM.DS ---
Discharge Summary Date of Admission: 05/27/23 19:40 Date of Discharge: 05/30/23 Admitting Physician: MALENA WAGGONER MD Primary Care Provider: JUMA LANE <ZOYA BRITTON - Last Filed: 05/30/23 12:36> Date of Admission: 05/27/23 19:40 Date of Discharge: 05/30/23 Admitting Physician: MALENA WAGGONER MD Primary Care Provider: JUMA LANE <RANDI BRIDGES - Last Filed: 05/30/23 21:01> Allergies <ZOYA BRITTON - Last Filed: 05/30/23 12:36> <RANDI BRIDGES - Last Filed: 05/30/23 21:01> Allergies Iodinated Contrast Media [Iodinated Contrast Media - IV Dye] Allergy (Intermediate, Verified 05/27/23 14:50) unknown- hives morphine Allergy (Intermediate, Verified 05/27/23 14:50) confusion and combative hydromorphone HCl [From Dilaudid] Adverse Reaction (Intermediate, Verified 05/27/23 14:50) confusion and combative oxycodone HCl [From OxyContin] Adverse Reaction (Intermediate, Verified 05/27/23 14:50) confusion/ combative Hospital Summary - Hospital Course Hospital Course: Mr. Domínguez is an 83 year-old gentleman with CAD s/p CABG + PCI, CKD II/III, emphysematous COPD, prior CVA, HTN, HLD, DM2, chronic anemia, and AFib on eliquis who presents with altered mental status and shortness of breath. Patient admitted with confusion. No evidence of infection. CT of head negative. MRI completed today and shows no acute process. Patient continues to have recurrent episodes of confusion, likely related to dementia. He denies any symptoms and is much more alert and oriented today. Family would like [facility] and further evaluation of his worsening dementia. Will have him f/u OP. - Vitals & Intake/Output Vital Signs: Vital Signs Temperature 98.3 F 05/30/23 07:08 Pulse Rate 100 H 05/30/23 07:08 Respiratory Rate 20 05/30/23 07:08 Blood Pressure 175/81 05/30/23 07:08 O2 Sat by Pulse Oximetry 94 L 05/30/23 07:08 Intake & Output: Intake & Output 05/27/23 05/28/23 05/29/23 05/30/23 11:59 11:59 11:59 11:59 Intake Total 550 2096 540 Balance 550 2096 540 Weight 90.6 kg - Lab Result Diagrams: 05/30/23 04:37 05/30/23 04:51 Lab Results-Last 24 Hrs: Lab Results-Last 24 Hours 05/29/23 05/29/23 05/29/23 Range/Units 16:30 16:30 22:31 WBC (4.0-10.5) x10^3/uL RBC (4.1-5.6) x10^6/uL Hgb (12.5-18.0) g/dL Hct (42-50) % MCV (78-100) fL MCH (26-32) pg MCHC (32-36) g/dL RDW (11.5-14.0) % Plt Count (150-450) x10^3/uL MPV (7.5-11.0) fL Sodium (137-145) mmol/L Potassium (3.5-5.1) mmol/L Chloride (98-107) mmol/L Carbon Dioxide (22-30) mmol/L Anion Gap (5-15) MEQ/L BUN (9-20) mg/dL Creatinine (0.66-1.25) mg/dL Estimated GFR ML/MIN Glucose (74-106) mg/dL POC Glucometer 206 H 206 H 185 H (74 to 106) mg/dL Calcium (8.4-10.2) mg/dL Total Bilirubin (0.2-1.3) mg/dL AST (17-59) U/L ALT (0-50) U/L Alkaline Phosphatase (38-126) U/L Serum Total Protein (6.3-8.2) g/dL Albumin (3.5-5.0) g/dL 05/30/23 05/30/23 05/30/23 Range/Units 04:37 04:51 07:02 WBC 7.6 (4.0-10.5) x10^3/uL RBC 4.16 (4.1-5.6) x10^6/uL Hgb 11.5 L (12.5-18.0) g/dL Hct 36.8 L (42-50) % MCV 88.5 (78-100) fL MCH 27.6 (26-32) pg MCHC 31.3 L (32-36) g/dL RDW 15.4 H (11.5-14.0) % Plt Count 197 (150-450) x10^3/uL MPV 12.0 H (7.5-11.0) fL Sodium 139 (137-145) mmol/L Potassium 4.1 (3.5-5.1) mmol/L Chloride 108 H (98-107) mmol/L Carbon Dioxide 19 L (22-30) mmol/L Anion Gap 15.5 H (5-15) MEQ/L BUN 25 H (9-20) mg/dL Creatinine 1.76 H (0.66-1.25) mg/dL Estimated GFR 38.1 ML/MIN Glucose 201 H (74-106) mg/dL POC Glucometer 187 H (74 to 106) mg/dL Calcium 9.3 (8.4-10.2) mg/dL Total Bilirubin 0.50 (0.2-1.3) mg/dL AST 27 (17-59) U/L ALT 14 (0-50) U/L Alkaline Phosphatase 55 (38-126) U/L Serum Total Protein 6.8 (6.3-8.2) g/dL Albumin 3.6 (3.5-5.0) g/dL Micro Results-Entire Visit: Accuchecks Date 05/30/23 Date 05/29/23 Time 07:07 Time 16:45 - Radiology Exams Ordered Rad Exams-Entire Visit: Radiology Procedures Category Date Time Status MRI BRAIN W/O CONTRAST [MRI] Routine Exams 05/30/23 14:00 Ordered - Procedures and Test Procedures and Tests throughout Hospitalization: Therapy Orders & Screens 05/27/23 21:57 OT Screen per Nursing Assess ONCE Comment: Protocol Order Physician Instructions: Greater than 3 points order OT Admission Screening Reason For Exam: Triggered on Admission Diagnosis: Altered mental status Open Wound/Cellutlitis/Pressure Ulcers: No Acute Fx/ORIF/Change in wt bearing status: No Severe MUSCULOSKELETAL pain: No ADL Dysfunction: Yes Acute CVA w/Hemiparesis/Hemiplegia: No Decreased Functional Mobility/Strength: Yes Sprain/Strain: No Acute Post-op Mobility Dysfunction: No Total Points: 4 PT Screen per Nursing Assess ONCE Comment: Protocol Order Physician Instructions: Greater than 3 points order PT Admission Screenin Reason For Exam: Triggered on Admission Diagnosis: Altered mental status Open Wound/Cellutlitis/Pressure Ulcers: No Acute Fx/ORIF/Change in wt bearing status: No Severe MUSCULOSKELETAL pain: No ADL Dysfunction: Yes Acute CVA w/Hemiparesis/Hemiplegia: No Decreased Functional Mobility/Strength: Yes Sprain/Strain: No Acute Post-op Mobility Dysfunction: No Total Points: 4 05/27/23 23:00 Oxygen Oxymizer LPM 2 lpm Comment: Diagnosis: Altered mental status Respiratory Therapy Assessment DAILY Comment: Diagnosis: Altered mental status <ZOYA BRITTON - Last Filed: 05/30/23 12:36> - Vitals & Intake/Output Vital Signs: Vital Signs Temperature 98.8 F 05/30/23 11:00 Pulse Rate 84 05/30/23 11:00 Respiratory Rate 18 05/30/23 11:00 Blood Pressure 129/61 05/30/23 11:00 O2 Sat by Pulse Oximetry 94 L 05/30/23 12:11 Intake & Output: Intake & Output 05/28/23 05/29/23 05/30/23 05/31/23 11:59 11:59 11:59 11:59 Intake Total 550 2096 540 Balance 550 2096 540 Weight 90.6 kg - Lab Result Diagrams: 05/30/23 04:37 05/30/23 04:51 Lab Results-Last 24 Hrs: Lab Results-Last 24 Hours 05/29/23 05/30/23 05/30/23 Range/Units 22:31 04:37 04:51 WBC 7.6 (4.0-10.5) x10^3/uL RBC 4.16 (4.1-5.6) x10^6/uL Hgb 11.5 L (12.5-18.0) g/dL Hct 36.8 L (42-50) % MCV 88.5 (78-100) fL MCH 27.6 (26-32) pg MCHC 31.3 L (32-36) g/dL RDW 15.4 H (11.5-14.0) % Plt Count 197 (150-450) x10^3/uL MPV 12.0 H (7.5-11.0) fL Sodium 139 (137-145) mmol/L Potassium 4.1 (3.5-5.1) mmol/L Chloride 108 H (98-107) mmol/L Carbon Dioxide 19 L (22-30) mmol/L Anion Gap 15.5 H (5-15) MEQ/L BUN 25 H (9-20) mg/dL Creatinine 1.76 H (0.66-1.25) mg/dL Estimated GFR 38.1 ML/MIN Glucose 201 H (74-106) mg/dL POC Glucometer 185 H (74 to 106) mg/dL Calcium 9.3 (8.4-10.2) mg/dL Total Bilirubin 0.50 (0.2-1.3) mg/dL AST 27 (17-59) U/L ALT 14 (0-50) U/L Alkaline Phosphatase 55 (38-126) U/L Serum Total Protein 6.8 (6.3-8.2) g/dL Albumin 3.6 (3.5-5.0) g/dL 05/30/23 05/30/23 Range/Units 07:02 12:09 WBC (4.0-10.5) x10^3/uL RBC (4.1-5.6) x10^6/uL Hgb (12.5-18.0) g/dL Hct (42-50) % MCV (78-100) fL MCH (26-32) pg MCHC (32-36) g/dL RDW (11.5-14.0) % Plt Count (150-450) x10^3/uL MPV (7.5-11.0) fL Sodium (137-145) mmol/L Potassium (3.5-5.1) mmol/L Chloride (98-107) mmol/L Carbon Dioxide (22-30) mmol/L Anion Gap (5-15) MEQ/L BUN (9-20) mg/dL Creatinine (0.66-1.25) mg/dL Estimated GFR ML/MIN Glucose (74-106) mg/dL POC Glucometer 187 H 190 H (74 to 106) mg/dL Calcium (8.4-10.2) mg/dL Total Bilirubin (0.2-1.3) mg/dL AST (17-59) U/L ALT (0-50) U/L Alkaline Phosphatase (38-126) U/L Serum Total Protein (6.3-8.2) g/dL Albumin (3.5-5.0) g/dL Micro Results-Entire Visit: Accuchecks Date 05/30/23 Date 05/30/23 Time 12:11 Time 07:07 - Radiology Exams Ordered Rad Exams-Entire Visit: Radiology Procedures Category Date Time Status MRI BRAIN W/O CONTRAST [MRI] Routine Exams 05/30/23 14:00 Completed - Procedures and Test Procedures and Tests throughout Hospitalization: Therapy Orders & Screens 05/27/23 21:57 OT Screen per Nursing Assess ONCE Comment: Protocol Order Physician Instructions: Greater than 3 points order OT Admission Screening Reason For Exam: Triggered on Admission Diagnosis: Altered mental status Open Wound/Cellutlitis/Pressure Ulcers: No Acute Fx/ORIF/Change in wt bearing status: No Severe MUSCULOSKELETAL pain: No ADL Dysfunction: Yes Acute CVA w/Hemiparesis/Hemiplegia: No Decreased Functional Mobility/Strength: Yes Sprain/Strain: No Acute Post-op Mobility Dysfunction: No Total Points: 4 PT Screen per Nursing Assess ONCE Comment: Protocol Order Physician Instructions: Greater than 3 points order PT Admission Screenin Reason For Exam: Triggered on Admission Diagnosis: Altered mental status Open Wound/Cellutlitis/Pressure Ulcers: No Acute Fx/ORIF/Change in wt bearing status: No Severe MUSCULOSKELETAL pain: No ADL Dysfunction: Yes Acute CVA w/Hemiparesis/Hemiplegia: No Decreased Functional Mobility/Strength: Yes Sprain/Strain: No Acute Post-op Mobility Dysfunction: No Total Points: 4 05/27/23 23:00 Oxygen Oxymizer LPM 2 lpm Comment: Diagnosis: Altered mental status Respiratory Therapy Assessment DAILY Comment: Diagnosis: Altered mental status <RANDI BRIDGES - Last Filed: 05/30/23 21:01> Discharge Exam General Appearance: no apparent distress, alert Neurologic Exam: alert, oriented x 3, cooperative, normal mood/affect, nml cerebellar function, sensation nml, No motor deficits Eye Exam: PERRL, EOMI, eyes nml inspection Ears, Nose, Throat Exam: normal ENT inspection, pharynx normal, moist mucous membranes Neck Exam: normal inspection, non-tender, supple, full range of motion Respiratory Exam: normal breath sounds, lungs clear, No respiratory distress Cardiovascular Exam: regular rate/rhythm, normal heart sounds Gastrointestinal/Abdomen Exam: soft, No tenderness, No mass Male Genitalia Exam: deferred Rectal Exam: deferred Back Exam: normal inspection, normal range of motion, No CVA tenderness, No vertebral tenderness Extremity Exam: normal inspection, normal range of motion Skin Exam: normal color, warm, dry <ZOYA BRITTON - Last Filed: 05/30/23 12:36> Final Diagnosis/Problem List - Final Discharge Diagnosis/Problem (1) Altered mental status Status: Acute Code(s): R41.82 - ALTERED MENTAL STATUS, UNSPECIFIED (2) Anemia Status: Acute Code(s): D64.9 - ANEMIA, UNSPECIFIED (3) Hypoglycemia Status: Acute Code(s): E16.2 - HYPOGLYCEMIA, UNSPECIFIED (4) Acute on chronic renal failure Status: Acute Code(s): N17.9 - ACUTE KIDNEY FAILURE, UNSPECIFIED; N18.9 - CHRONIC KIDNEY DISEASE, UNSPECIFIED (5) Acute respiratory failure with hypoxia Status: Acute Code(s): J96.01 - ACUTE RESPIRATORY FAILURE WITH HYPOXIA (6) Afib Status: Acute Code(s): I48.91 - UNSPECIFIED ATRIAL FIBRILLATION (7) HTN (hypertension) Status: Chronic Code(s): I10 - ESSENTIAL (PRIMARY) HYPERTENSION (8) On anticoagulant therapy Status: Chronic Code(s): 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 OF ANTICOAGULANTS (9) Type 2 diabetes mellitus Status: Chronic Assessment & Plan: (1) Altered mental status Current Visit: Yes Status: Acute Assessment & Plan: 05/30 - CT negative for acute process -MRI - OP f/u for evaluation of dementia - Family would like [facility]- case management arranging Code(s): R41.82 - ALTERED MENTAL STATUS, UNSPECIFIED (2) Anemia Current Visit: Yes Status: Acute Assessment & Plan: -At baseline, will continue to monitor and replace as appropriate if hgb <7 04/20/23 - Hgb stable at 11.5 Code(s): D64.9 - ANEMIA, UNSPECIFIED (3) Hypoglycemia Current Visit: Yes Status: Acute Assessment & Plan: -Resolved, will continue SSI with carb consistent diet Code(s): E16.2 - HYPOGLYCEMIA, UNSPECIFIED (4) Acute on chronic renal failure Current Visit: No Status: Acute Assessment & Plan: 05/29: -Back to baseline Code(s): N17.9 - ACUTE KIDNEY FAILURE, UNSPECIFIED; N18.9 - CHRONIC KIDNEY DISEASE, UNSPECIFIED (5) Acute respiratory failure with hypoxia Current Visit: No Status: Acute Assessment & Plan: - resolved, RA Code(s): J96.01 - ACUTE RESPIRATORY FAILURE WITH HYPOXIA (6) Afib Current Visit: No Status: Acute Assessment & Plan: -Continue Eliquis/ metoprolol Code(s): I48.91 - UNSPECIFIED ATRIAL FIBRILLATION (7) Hypertension Current Visit: No Status: Acute Assessment & Plan: -Stable. 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 NURSING (CURRENT) USE OF ANTICOAGULANTS (9) Type 2 diabetes mellitus Current Visit: No Status: Chronic -Patient now A&O x 3, -blood glucose levels stable -resume diet with SSI low dose for now, monitor closely <ZOYA BRITTON - Last Filed: 05/30/23 12:36> - Discharge Discharge Date: 05/30/23 <ZOYA BRITTON - Last Filed: 05/30/23 12:36> <RANDI BRIDGES - Last Filed: 05/30/23 21:01> - Discharge Disposition: HOME HEALTH SERVICE Condition: Stable Prescriptions: Continue Multivitamin [Multivitamins] 1 tab PO DAILY Metoprolol Tartrate 25 mg [Lopressor 25MG Tab] 50 mg PO BID Hydrocodone/Acetaminophen [Hydrocodone-Acetamin 10-325 mg] 1 tab PO Q6HPRN PRN PRN Reason: Pain Amlodipine Besylate 5 mg [Norvasc 5 mg] 10 mg PO DAILY Apixaban [Eliquis 5 mg Tablet] 5 mg PO BID Tamsulosin HCl 0.4 mg [Flomax 0.4 MG] 0.4 mg PO DAILY Pregabalin 50 mg [Lyrica 50MG] 150 mg PO BID Albuterol 2.5 mg/3 ml Neb [Proventil 2.5 mg/3 ml Neb] 1 neb IH DAILY PRN PRN PRN Reason: Shortness Of Breath Sucralfate 1 gm [Carafate 1 GM] 1 gm PO QID Ferrous Sulfate 325 mg [Feosol 325 mg] 325 mg PO DAILY Dapagliflozin Propanediol [Farxiga] 10 mg PO DAILY Furosemide 20 mg [Lasix 20 mg] 40 mg PO BID Nitroglycerin 0.4 mg Tablet [Nitrostat 0.4 MG Tablet] 0.4 mg SL UD Allopurinol 300 mg [Zyloprim 300 mg] 300 mg PO DAILY Metformin HCl 500 mg [Glucophage 500 MG] 1,000 mg PO BIDWM Insulin Glargine/Lixisenatide [Soliqua 100 Unit-33 Mcg/ml Pen] 30 units SQ DAILY Insulin Regular, Human [Novolin R] 6 unit SQ UD Bimatoprost 0.01% [Lumigan 0.01% 2.5 ml] 1 drop OP HS Albuterol/Ipratropium 3ml Neb* [DUONEB 0.5-3 MG/3 ml Neb] 3 ml IH QID PRN PRN Reason: Shortness Of Breath Methylphenidate 5 mg [Ritalin 5 MG] 10 mg PO 1400 PANTOPRAZOLE 40 mg Tablet [Protonix 40MG Tablet] 40 mg PO DAILY Isosorbide Mononitrate [Isosorbide Mononitrate ER] 60 mg PO DAILY Methylphenidate HCl 20 mg PO DAILY Cyanocobalamin 500 Mcg [Vitamin B-12 500 MCG] 1,000 mcg PO DAILY Instructions: Altered Mental Status (DC) Additional Instructions: Patient is to see Maria Ines Valencia/EVELYN Jun 17, 2022 at 10:00 with [place] [id number] [facility] [address] [place] [address]. A REFERRAL WAS SENT TO CARE COORDINATION- IF YOU HAVE ANY CONCERNS OR QUESTIONS YOU CAN CALL THEM AT [phone] Follow up with: JUMA LANE [Primary Care Provider] - 06/02/23 9:30 am RONNI Encounter - RONNI Encounter Attestation RONNI Encounter Attestation: "VALENTIN Cardoza andhavediscussed pertinent aspects of their care with Zoya Blandon agree with the history, physical exam (any modifications based on my personal exam will be noted below), assessment, and plan as outlined in original note. Please see immediately below for my summary of findings and additional assessment and plan along with any meaningful corrections/explanations to the Subjective/Objective portions of the RONNI note will be noted." My portion of the encounter took place via telemedicine. -Patient has had worsening issues with memory and confusion for the past several months. Needs outpatient work up for dementia. Inpatient work up has been negative. Okay to DC with outpatient follow up <RANDI BRIDGES - Last Filed: 05/30/23 21:01>
[2023-05-30] MEDS ORDERED: Lidoderm Patch 5% TOP SCH (12:00)
--- NOTE | 2023-05-30 12:16 | XRAY ---
Indication: Altered mental status. Nonacute CT head exam. Sagittal, coronal, and axial MRI brain performed without contrast using T1, T2, FLAIR, diffusion, and ADC sequences. Comparison: None Age-appropriate global atrophy and moderate/advanced periventricular degenerative micro-ischemia signal bilaterally. Brainstem demonstrates minimal degenerative micro-ischemia signal. Cerebellum demonstrates multifocal remote lacunar infarcts bilaterally, largest on left measuring 7 x 13 mm. No acute intracranial hemorrhage, abnormal extra-axial fluid collection, or mass effect. Diffusion images are negative for restricted signal. Fourth ventricle is midline without hydrocephalus. 7/8 cranial nerve complex bilaterally symmetric. Normal flow-void signal within the major intracerebral circulation. Normal appearing craniocervical junction and sella turcica. Paranasal sinuses are clear. Impression: Atrophy and degenerative micro-ischemia within normal limits for patient's age. Remote lacunar infarcts cerebellum. No acute intracranial abnormalities or evidence for evolving large vessel territorial stroke.
[2023-05-30] MEDS ORDERED: Lopressor 50 MG PO SCH (22:00)
== END 2023-05-30 13:53 | disposition home health service (06) ==
LOC: ED 13:56 → MED SURG 19:40
PROVIDERS: ADMIT Internal Medicine Critical Care Medicine; ATTEND Internal Medicine Critical Care Medicine
DX: R41.82 Altered mental status, unspecified (principal); D64.9 Anemia, unspecified; E16.2 Hypoglycemia, unspecified; N17.9 Acute kidney failure, unspecified; J96.01 Acute respiratory failure with hypoxia; I48.91 Unspecified atrial fibrillation; E11.22 Type 2 diabetes mellitus with diabetic chronic kidney disease; I12.9 Hypertensive chronic kidney disease with stage 1 through stage 4 chronic kidney disease, or unspecified chronic kidney disease; N18.30 Chronic kidney disease, stage 3 unspecified; I25.10 Atherosclerotic heart disease of native coronary artery without angina pectoris; E78.5 Hyperlipidemia, unspecified; Z79.01 Long term (current) use of anticoagulants; Z79.899 Other long term (current) drug therapy; Z20.828 Contact with and (suspected) exposure to other viral communicable diseases; Z95.0 Presence of cardiac pacemaker; Z86.73 Personal history of transient ischemic attack (TIA), and cerebral infarction without residual deficits
CPT/HCPCS: 0241U; 36000; 36415; 36600; 70450; 70551; 71250; 73130; 74176; 80053; 80307; 81001; 82077; 82140; 82375; 82803; 82947; 83036; 83605; 83735; 83880; 84484; 85025; 85027; 85610; 85730; 94760; 94762; 99285; G0378; Q3014; J1817; A9270-GY

== ENCOUNTER 2023-09-24 14:46 | Observation (INO) | payer MEDICARE ==
[2023-09-24] MEDS ORDERED: Sodium Chloride 0.9% 1000 ML 1,000 ML ONE (15:10)
[2023-09-24] MEDS: Sodium Chloride 0.9% 1000 ML 1,000 ML IV STA (15:11)
[2023-09-24 15:21] LABS: Absolute Neutrophil Ct (ANC) 7.62 x10^3/uL (1.4-6.9); BASOPHIL % 1.9 % (0.0-0.4); Basophil (Absolute #) 0.23 x10^3/uL (0-0.4); Eosinophil % 4.2 % (0.00-5.0); Hematocrit 37.3 % (42-50); Hemoglobin 11.8 g/dL (12.5-18.0); IMMATURE GRAN # 0.16 x10^3u/L (0.00-0.03); IMMATURE GRAN % 1.4 % (0.00-0.4); Lymphocyte (Absolute #) 2.96 x10^3/uL (1.0-4.6); Mean Corpuscular Hemoglobin 27.8 pg (26-32); Mean Corpuscular Hgb Concent. 31.6 g/dL (32-36); Mean Platelet Volume 12.2 fL (7.5-11.0); Monocyte (Absolute #) 0.35 x10^3/uL (0.0-1.3); Neutrophil % 64.5 % (36.0-66.0); Platelet Count 317 x10^3/uL (150-450); Red Blood Count 4.24 x10^6/uL (4.1-5.6); Red Cell Distribution Width 15.6 % (11.5-14.0); White Blood Count 11.8 x10^3/uL (4.0-10.5)
[2023-09-24 15:24] LABS: ANION GAP 15.8 MEQ/L (5-15); BILIRUBIN,TOTAL 0.7 mg/dL (0.2-1.3); Calcium 9.9 mg/dL (8.4-10.2); Creatinine 1 1.89 mg/dL (0.66-1.25); Direct Bilirubin 0.2 mg/dL (0.0-0.4); Potassium 4.3 mmol/L (3.5-5.1); Total Protein 7.6 g/dL (6.3-8.2)
[2023-09-24 16:17] LABS: INFLUENZA A NEGATIVE (NEGATIVE); INFLUENZA B NEGATIVE (NEGATIVE); RESPIRATORY SYNCTIAL VIRUS NEGATIVE (NEGATIVE); SARS-CoV-2 Xpert Express NEGATIVE (NEGATIVE)
--- NOTE | 2023-09-24 16:24 | ERPHSYRPT ---
- History of Present Illness Time Seen by Provider: 09/24/23 14:59 Historian: patient, family Exam Limitations: no limitations Patient Subjective Stated Complaint: Pt has been getting weaker, has a cough, poor appetite and thinks he has pnuemonia Triage Nursing Assessment: Pt brought to the ER by his and daughter, hypertensive, denies pain, has sputum when he coughs but he swallows it, pulses normal, weak, last intake was , had a glucerna yesterday, no difficulties breathing, sleeps day and night, has been sweating so much that his clothes are getting soaked Physician History: 83yo m presents via private vehicle for abdominal pain, cough, chest congestion. Pt reports this has been ongoing for roughly 4wks. Pt was admitted to hospital last month for GI infection, reports limited PO intake since. Pt reports some b/l lower abdominal discomfort, also complains of sinus congestion, fatigue for the past 1-2wks. Pt denies fevers at home, reports small volume diarrhea daily for the past several days. Pt currently denies cp, soa, n/v, WIL[place]INSON, blurry vision. Timing/Duration: week(s) (3-4) Activities at Onset: none Quality: cramping Abdominal Pain Onset Location: RLQ, LLQ Pain Radiation: no radiation Severity of Pain-Max: moderate Severity of Pain-Current: mild Modifying Factors: Improves With: nothing Associated Symptoms: diarrhea, fatigue, loss of appetite, nausea, vomiting Previous symptoms: same symptoms as today, recent hospitalization Allergies/Adverse Reactions: Iodinated Contrast Media [Iodinated Contrast Media - IV Dye] Allergy (Intermediate, Verified 09/24/23 15:06) unknown- hives morphine Allergy (Intermediate, Verified 09/24/23 15:06) confusion and combative hydromorphone HCl [From Dilaudid] Adverse Reaction (Intermediate, Verified 09/24/23 15:06) confusion and combative oxycodone HCl [From OxyContin] Adverse Reaction (Intermediate, Verified 09/24/23 15:06) confusion/ combative Home Medications: Amlodipine Besylate 5 mg [Norvasc 5 mg] 10 mg PO DAILY 05/16/22 [History] Apixaban [Eliquis 5 mg Tablet] 5 mg PO BID 05/16/22 [History] Hydrocodone/Acetaminophen [Hydrocodone-Acetamin 10-325 mg] 1 tab PO Q6HPRN PRN 05/16/22 [History] Metoprolol Tartrate 25 mg [Lopressor 25MG Tab] 50 mg PO DAILY 05/16/22 [History] Multivitamin [Multivitamins] 1 tab PO DAILY 05/16/22 [History] Pregabalin 50 mg [Lyrica 50MG] 150 mg PO BID 05/16/22 [History] Tamsulosin HCl 0.4 mg [Flomax 0.4 MG] 0.4 mg PO DAILY 05/16/22 [History] Albuterol 2.5 mg/3 ml Neb [Proventil 2.5 mg/3 ml Neb] 1 neb IH DAILY PRN PRN 07/08/22 [History] Dapagliflozin Propanediol [Farxiga] 10 mg PO DAILY 01/08/23 [History] Ferrous Sulfate 325 mg [Feosol 325 mg] 325 mg PO DAILY 01/08/23 [History] Furosemide 20 mg [Lasix 20 mg] 40 mg PO BID 01/08/23 [History] Nitroglycerin 0.4 mg Tablet [Nitrostat 0.4 MG Tablet] 0.4 mg SL UD 01/08/23 [History] Sucralfate 1 gm [Carafate 1 GM] 1 gm PO QID 01/08/23 [History] Allopurinol 300 mg [Zyloprim 300 mg] 300 mg PO DAILY 02/12/23 [History] Albuterol/Ipratropium 3ml Neb* [DUONEB 0.5-3 MG/3 ml Neb] 3 ml IH QID PRN 04/11/23 [History] Bimatoprost 0.01% [Lumigan 0.01% 2.5 ml] 1 drop OP HS 04/11/23 [History] Insulin Glargine/Lixisenatide [Soliqua 100 Unit-33 Mcg/ml Pen] 30 units SQ DAILY 04/11/23 [History] Insulin Regular, Human [Novolin R] 6 unit SQ UD 04/11/23 [History] Isosorbide Mononitrate [Isosorbide Mononitrate ER] 60 mg PO DAILY 05/27/23 [History] Methylphenidate 5 mg [Ritalin 5 MG] 10 mg PO 1400 05/27/23 [History] Methylphenidate HCl 20 mg PO DAILY 05/27/23 [History] PANTOPRAZOLE 40 mg Tablet [Protonix 40MG Tablet] 40 mg PO DAILY 05/27/23 [History] Cyanocobalamin 500 Mcg [Vitamin B-12 500 MCG] 1,000 mcg PO DAILY 05/28/23 [History] Hx Tetanus, Diphtheria Vaccination/Date Given: Yes Hx Influenza Vaccination/Date Given: Yes Hx Pneumococcal Vaccination/Date Given: Yes Travel Risk - International Travel Have you traveled outside of the country in past 3 weeks: No - Emerging Infectious Disease Are you exhibiting symptoms associated with any current EIDs: Yes Symptoms: Cough: New Onset - Review of Systems Constitutional: Chills, Fatigue Respiratory: Cough, No Dyspnea, No Wheezing Cardiac: No Symptoms Abdominal/Gastrointestinal: Abdominal Pain, Nausea, Vomiting, Diarrhea, Appetite Changes Genitourinary Symptoms: No Symptoms Neurological: No Symptoms - Past Medical History Pertinent Past Medical History: Yes Neurological History: No Pertinent History ENT History: Cataracts, Glaucoma Cardiac History: Hypertension, Myocardial Infarction (AR), Other Respiratory History: Asthma, COPD, Other Endocrine Medical History: Diabetes Type II Musculoskeletal History: Fractures GI Medical History: GERD, Gallbladder Disease History: Other Psycho-Social History: Depression Male Reproductive Disorders: Prostate Problems Other Medical History: COVID-19, L Wrist Fracture (1982), Open Heart Surgery (1993), LE fracture (unable to recall which side, ), Low Back Pain, LB surgery (1994 with rods placed) - Past Surgical History Past Surgical History: Yes Neuro Surgical History: No Pertinent History Cardiac: CABG, Cardiac Catheterization, Cardiac Stent Respiratory: Chest Surgery Gastrointestinal: Appendectomy, Cholecystectomy Genitourinary: No Pertinent History Musculoskeletal: Orthopedic Surgery Male Surgical History: No Pertinent History Other Surgical History: back surgery, fem pop, steriod injection in various joints, carpal tunnel surgery Significant Family History: no pertinent family hx - Social History Smoking Status: Never smoker How long have you smoked: 1975 Exposure to second hand smoke: No Drug Use: none Patient Lives Alone: No () - Nursing Vital Signs Nursing Vital Signs: Initial Vital Signs Temperature 97.6 F 09/24/23 14:49 Pulse Rate 92 H 09/24/23 14:49 Respiratory Rate 19 09/24/23 14:49 Blood Pressure 158/89 09/24/23 14:49 O2 Sat by Pulse Oximetry 98 09/24/23 14:49 Pain Scale Pain Intensity 0 - Physical Exam General Appearance: no apparent distress, alert Respiratory Exam: normal breath sounds, lungs clear, airway intact, No chest tenderness, No respiratory distress, No diminished breath sounds, No crackles/rales, No wheezing Cardiovascular Exam: regular rate/rhythm, normal heart sounds, normal peripheral pulses Gastrointestinal/Abdomen Exam: soft, tenderness, No distention, No mass, No guarding Neurologic Exam: alert, oriented x 3, cooperative SpO2 Interpretation: normal SpO2: 98 O2 Delivery: Room Air - Course EKG Interpreted by Me: RATE (95), Sinus Rhythm, Other (MO 233, qtcb 491, RBBB, nonspecific ST changes) Ordered Tests: Active Orders 24 hr Category Date Time Status EKG-ER Only STAT Care 09/24/23 14:53 Active ABDOMEN AND PELVIS W/0 CONTRAS [CT] Stat Exams 09/24/23 14:54 Completed CHEST 1 VIEW (PORTABLE) Stat Exams 09/24/23 14:54 Taken CBC W DIFF Stat Lab 09/24/23 15:00 Completed CMP Stat Lab 09/24/23 15:00 Completed Hepatic Function Panel Stat Lab 09/24/23 15:00 Completed LIPASE Stat Lab 09/24/23 15:00 Completed Lactic Acid Stat Lab 09/24/23 15:10 Completed TROPONIN Q4H Lab 09/24/23 15:00 Completed TROPONIN Q4H Lab 09/24/23 19:00 Ordered TROPONIN Q4H Lab 09/24/23 23:00 Ordered UA W/RFX UR CULTURE Stat Lab 09/24/23 14:54 Ordered Medication Summary Discontinued Medications Generic Name Dose Route Start Last Admin Trade Name Freq PRN Reason Stop Dose Admin Sodium Chloride 1,000 mls @ 999 mls/hr 09/24/23 15:08 09/24/23 17:12 Sodium Chloride 0.9% 1000 Ml IV 09/24/23 16:08 Infused .Q1H1M STA Infusion Sodium Chloride Confirm 09/24/23 15:10 Sodium Chloride 0.9% 1000 Ml Administered 09/24/23 15:11 Dose 1,000 mls @ ud .ROUTE .[facility] Lab/Rad Data: Laboratory Result Diagrams 09/24/23 15:00 09/24/23 15:00 Laboratory Results 09/24/23 09/24/23 09/24/23 Range/Units 15:10 15:05 15:00 WBC (4.0-10.5) x10^3/uL RBC (4.1-5.6) x10^6/uL Hgb (12.5-18.0) g/dL Hct (42-50) % MCV (78-100) fL MCH (26-32) pg MCHC (32-36) g/dL RDW (11.5-14.0) % Plt Count (150-450) x10^3/uL MPV (7.5-11.0) fL Gran % (36.0-66.0) % Immature Gran % (Auto) (0.00-0.4) % Nucleat RBC Rel Count (0.00-0.1) % Eos # (Auto) (0-0.5) x10^3/uL Immature Gran # (Auto) (0.00-0.03) x10^3u/L Absolute Lymphs (auto) (1.0-4.6) x10^3/uL Absolute Monos (auto) (0.0-1.3) x10^3/uL Absolute Nucleated RBC (0.00-0.01) x10^3u/L Lymphocytes % (24.0-44.0) % Monocytes % (0.0-12.0) % Eosinophils % (0.00-5.0) % Basophils % (0.0-0.4) % Absolute Granulocytes (1.4-6.9) x10^3/uL Basophils # (0-0.4) x10^3/uL Sodium (135-145) mmol/L Potassium (3.5-5.1) mmol/L Chloride (98-107) mmol/L Carbon Dioxide (22-30) mmol/L Anion Gap (5-15) MEQ/L BUN (9-20) mg/dL Creatinine (0.66-1.25) mg/dL Estimated GFR ML/MIN Glucose (74-106) mg/dL Lactic Acid 1.9 (0.4-2.0) Calcium (8.4-10.2) mg/dL Total Bilirubin (0.2-1.3) mg/dL Direct Bilirubin (0.0-0.4) mg/dL AST (17-59) U/L ALT (0-50) U/L Alkaline Phosphatase (38-126) U/L Troponin I < 0.012 (0.000-0.033) ng/mL Serum Total Protein (6.3-8.2) g/dL Albumin (3.5-5.0) g/dL Lipase (23-300) U/L Influenza Type A Ag NEGATIVE (NEGATIVE) Influenza Type B Ag NEGATIVE (NEGATIVE) RSV (PCR) NEGATIVE (NEGATIVE) SARS-CoV-2 (PCR) NEGATIVE (NEGATIVE) 09/24/23 09/24/23 Range/Units 15:00 15:00 WBC 11.8 H (4.0-10.5) x10^3/uL RBC 4.24 (4.1-5.6) x10^6/uL Hgb 11.8 L (12.5-18.0) g/dL Hct 37.3 L (42-50) % MCV 88.0 (78-100) fL MCH 27.8 (26-32) pg MCHC 31.6 L (32-36) g/dL RDW 15.6 H (11.5-14.0) % Plt Count 317 (150-450) x10^3/uL MPV 12.2 H (7.5-11.0) fL Gran % 64.5 (36.0-66.0) % Immature Gran % (Auto) 1.4 H (0.00-0.4) % Nucleat RBC Rel Count 0.0 (0.00-0.1) % Eos # (Auto) 0.50 (0-0.5) x10^3/uL Immature Gran # (Auto) 0.16 H (0.00-0.03) x10^3u/L Absolute Lymphs (auto) 2.96 (1.0-4.6) x10^3/uL Absolute Monos (auto) 0.35 (0.0-1.3) x10^3/uL Absolute Nucleated RBC 0.00 (0.00-0.01) x10^3u/L Lymphocytes % 25.0 (24.0-44.0) % Monocytes % 3.0 (0.0-12.0) % Eosinophils % 4.2 (0.00-5.0) % Basophils % 1.9 (0.0-0.4) % Absolute Granulocytes 7.62 H (1.4-6.9) x10^3/uL Basophils # 0.23 (0-0.4) x10^3/uL Sodium 141 (135-145) mmol/L Potassium 4.3 (3.5-5.1) mmol/L Chloride 108 H (98-107) mmol/L Carbon Dioxide 21 L (22-30) mmol/L Anion Gap 15.8 H (5-15) MEQ/L BUN 24 H (9-20) mg/dL Creatinine 1.89 H (0.66-1.25) mg/dL Estimated GFR 35.0 ML/MIN Glucose 159 H (74-106) mg/dL Lactic Acid (0.4-2.0) Calcium 9.9 (8.4-10.2) mg/dL Total Bilirubin 0.70 (0.2-1.3) mg/dL Direct Bilirubin 0.2 (0.0-0.4) mg/dL AST 28 (17-59) U/L ALT 18 (0-50) U/L Alkaline Phosphatase 72 (38-126) U/L Troponin I (0.000-0.033) ng/mL Serum Total Protein 7.6 (6.3-8.2) g/dL Albumin 4.0 (3.5-5.0) g/dL Lipase 240 (23-300) U/L Influenza Type A Ag (NEGATIVE) Influenza Type B Ag (NEGATIVE) RSV (PCR) (NEGATIVE) SARS-CoV-2 (PCR) (NEGATIVE) - Progress Progress: re-examined Progress Note: 09/24/23 16:56 CT abd/pel showed: 1. No obvious acute intra-abdominal abnormality was detected. 2. No acute interval change was noted from the previous CT abdomen 09/24/23 17:44 Discussed admission for obs w/ Dr Adamson who is willing to accept Medical Desision Making - Diagnostic Testing Diagnostic test were ordered, analyzed, and reviewed by me: Yes Radiological Interpretation: Interpreted by me, Reviewed by me, Teleradiologist Report - Risk of complications The pt has a high risk of morbidity or mortality based on: Decision regarding hospitilization or escalation of hosp level of care - Departure Departure Disposition: Observation Clinical Impression: Dehydration, Viral gastroenteritis Condition: Stable Critical Care Time: No Referrals: [facility] [Primary Care Provider] - Follow up/PCP as directed
--- NOTE | 2023-09-24 16:38 | XRAY ---
CLINICAL HISTORY: abdominal pain COMPARISON: Previous CT abdomen without contrast 05/28/2023. TECHNIQUE: Contiguous axial images were obtained from the level of the diaphragm to the pubic symphysis without intravenous or oral contrast. Coronal and sagittal reconstructions were likewise performed and indicated to increase the sensitivity for detecting clinically relevant pathology. One of the following dose reduction techniques were utilized for this exam: Automated exposure control, adjustment of the mA and/or kV according to patient size, use of iterative reconstruction? FINDINGS: LIMITATION: Evaluation of the abdominal and pelvic visceral organs is limited without intravenous contrast. The unenhanced liver, pancreas, and adrenal glands are grossly unremarkable. Gallbladder is not seen-post cholecystectomy status. The kidneys are normal in size and attenuation without obvious calcification. There is no hydronephrosis. Bilateral extra-renal pelvis are noted. Small well-defined exophytic cysts are noted in both kidney-largest measuring about 20 x 19 mm on the right side and 22 x 22 mm on the left side. No hydroureter is noted. Diffuse atherosclerosis with extensive calcifications are noted involving the visualized abdominal aorta and its branches. A few tiny calcific foci are noted involving the spleen. No adenopathy or fluid collections are seen. No evidence of focal or diffuse bowel wall thickening or evidence of bowel obstruction is seen. The urinary bladder is normal in contour. Pelvic viscera are grossly unremarkable. No aggressive appearing osseous lesions are identified. Bilateral linear atelectasis left lower lobe small calcified nodules are redemonstrated in the left lung base. Two pneumatoceles are noted in the covered right lung base. Reduced bone density was noted in the covered spine. Spinal fixators are demonstrated in the L4/5 and L5/S1 and appear unchanged with marked lumbar spondylosis and grade II anterolisthesis at the L5-S1 level. Slices through the lower chest reveal a few fibrotic scars and bilateral 3-4mm calcified nodules, signifying healed granulomas. IMPRESSION: 1. No obvious acute intra-abdominal abnormality was detected. 2. No acute interval change was noted from the previous CT abdomen. Electronically Signed by: Chantel Payan MD. (09/24/2023 16:33:31 EDT)
[2023-09-24 18:40] LABS: Appearance Clear (Clear); Bacteria None Seen /HPF (None Seen); Bilirubin Negative (Negative); Blood Negative (Negative); Epithelial Cells None Seen /HPF (None Seen); Glucose, Urine >=1000 mg/dL (Negative); Hyaline Casts NONE SEEN /LPF (0-2); Ketones 40 (Negative); Leukocyte Esterase Negative (Negative); Nitrite Negative (Negative); Ph 5.5 (4.6-8.0); Protein,Urine Dip 100 (Negative); RBC 0-2 /HPF (0-5); Urobilinogen 0.2 mg/dL (0.2); WBC 0-2 /HPF (0-5)
[2023-09-24 18:41] LABS: ADD URINE CULTURE? NO (NO)
--- NOTE | 2023-09-24 19:52 | XRAY ---
Indication: URI. Comparison: March 07, 2023 Portable chest better inflated again with a few tiny bilateral calcified granulomas. No focal infiltrate, consolidation, or large effusion. Heart not enlarged again with CABG. Bony thorax intact again with osteopenia and degenerative changes. Impression: Nonacute chest with chronic features.
--- NOTE | 2023-09-24 20:33 | PCM.HP ---
History of Present Illness - Chief Complaint Chief Complaint: dehydration, nausea, vomiting History of Present Illness: is a 83 year old male who presents with a few days of loose stools, nausea, and abdominal discomfort. Denies fevers, sick contacts or recent travel. No blood in stool. CT scan in the ED was unremarkable. Labs showed an HELENE, suggestive of dehydration. [place] better with some hydration already. - Review of Systems Constitutional: No Fever, No Chills Eyes: No Symptoms Ears, Nose, & Throat: No Symptoms Respiratory: No Cough, No Short Of Breath Cardiac: No Chest Pain, No Edema, No Syncope Abdominal/Gastrointestinal: No Abdominal Pain, No Nausea, No Vomiting, No Diarrhea Genitourinary Symptoms: No Dysuria Musculoskeletal: No Back Pain, No Neck Pain Skin: No Rash Neurological: No Dizziness, No Focal Weakness, No Sensory Changes Psychological: No Symptoms Endocrine: No Symptoms Hematologic/Lymphatic: No Symptoms Immunological/Allergic: No Symptoms Medications & Allergies Home Medications: Home Medication List Amlodipine Besylate 5 mg [Norvasc 5 mg] 10 mg PO DAILY 05/16/22 [History Confirmed 09/24/23] Apixaban [Eliquis 5 mg Tablet] 5 mg PO BID 05/16/22 [History Confirmed 09/24/23] Hydrocodone/Acetaminophen [Hydrocodone-Acetamin 10-325 mg] 1 tab PO Q6HPRN PRN 05/16/22 [History Confirmed 09/24/23] Metoprolol Tartrate 25 mg [Lopressor 25MG Tab] 50 mg PO DAILY 05/16/22 [History Confirmed 09/24/23] Multivitamin [Multivitamins] 1 tab PO DAILY 05/16/22 [History Confirmed 09/24/23] Pregabalin 50 mg [Lyrica 50MG] 150 mg PO BID 05/16/22 [History Confirmed 09/24/23] Tamsulosin HCl 0.4 mg [Flomax 0.4 MG] 0.4 mg PO DAILY 05/16/22 [History Confirmed 09/24/23] Albuterol 2.5 mg/3 ml Neb [Proventil 2.5 mg/3 ml Neb] 1 neb IH DAILY PRN PRN 07/08/22 [History Confirmed 09/24/23] Dapagliflozin Propanediol [Farxiga] 10 mg PO DAILY 01/08/23 [History Confirmed 09/24/23] Ferrous Sulfate 325 mg [Feosol 325 mg] 325 mg PO DAILY 01/08/23 [History Confirmed 09/24/23] Furosemide 20 mg [Lasix 20 mg] 80 mg PO BID 01/08/23 [History Confirmed 09/24/23] Nitroglycerin 0.4 mg Tablet [Nitrostat 0.4 MG Tablet] 0.4 mg SL UD 01/08/23 [History Confirmed 09/24/23] Sucralfate 1 gm [Carafate 1 GM] 1 gm PO QID 01/08/23 [History Confirmed 09/24/23] Allopurinol 300 mg [Zyloprim 300 mg] 300 mg PO DAILY 02/12/23 [History Confirmed 09/24/23] Albuterol/Ipratropium 3ml Neb* [DUONEB 0.5-3 MG/3 ml Neb] 3 ml IH QID PRN 04/11/23 [History Confirmed 09/24/23] Bimatoprost 0.01% [Lumigan 0.01% 2.5 ml] 1 drop OP HS 04/11/23 [History Confirmed 09/24/23] Insulin Glargine/Lixisenatide [Soliqua 100 Unit-33 Mcg/ml Pen] 40 units SQ DAILY 04/11/23 [History Confirmed 09/24/23] Insulin Regular, Human [Novolin R] 6 unit SQ UD 04/11/23 [History Confirmed 09/24/23] Isosorbide Mononitrate [Isosorbide Mononitrate ER] 60 mg PO DAILY 05/27/23 [History Confirmed 09/24/23] Methylphenidate 5 mg [Ritalin 5 MG] 10 mg PO 1400 05/27/23 [History Confirmed 09/24/23] Methylphenidate HCl 20 mg PO DAILY 05/27/23 [History Confirmed 09/24/23] PANTOPRAZOLE 40 mg Tablet [Protonix 40MG Tablet] 40 mg PO DAILY 05/27/23 [History Confirmed 09/24/23] Cyanocobalamin 500 Mcg [Vitamin B-12 500 MCG] 1,000 mcg PO DAILY 05/28/23 [History Confirmed 09/24/23] Allergies/Adverse Reactions: Allergies Allergy/AdvReac Type Severity Reaction Status Date / Time Iodinated Contrast Media Allergy Intermediate unknown- Verified 09/24/23 15:06 [Iodinated Contrast Media - hives IV Dye] morphine Allergy Intermediate confusion Verified 09/24/23 15:06 and combative hydromorphone HCl AdvReac Intermediate confusion Verified 09/24/23 15:06 [From Dilaudid] and combative oxycodone HCl AdvReac Intermediate confusion/ Verified 09/24/23 15:06 [From OxyContin] combative - Past Medical History Past Medical History: Yes Neurological History: No Pertinent History ENT History: Cataracts, Glaucoma Cardiac History: Hypertension, Myocardial Infarction (NH), Other Respiratory History: Asthma, COPD, Other Endocrine Medical History: Diabetes Type II Musculoskelatal History: Fractures GI Medical History: GERD, Gallbladder Disease History: Other Pyscho-Social History: Depression Male Reproductive Disorders: Prostate Problems Comment: COVID-19, L Wrist Fracture (1982), Open Heart Surgery (1993), LE fracture (unable to recall which side, ), Low Back Pain, LB surgery (1994 with rods placed) - Past Surgical History Past Surgical History: Yes Neuro Surgical History: No Pertinent History Cardiac History: CABG, Cardiac Catheterization, Cardiac Stent Respiratory Surgery: Chest Surgery GI Surgical History: Appendectomy, Cholecystectomy Genitourinary Surgical Hx: No Pertinent History Musculskeletal Surgical Hx: Orthopedic Surgery Male Surgical History: No Pertinent History Other Surgical History: back surgery, fem pop, steriod injection in various joints, carpal tunnel surgery Significant Family History: no pertinent family hx - Social History Smoking Status: Never smoker How long have you smoked: 1975 Exposure to second hand smoke: No Alcohol: None Drug Use: none - Social Determinants of Health Will the patient participate in the screening: Yes Do you worry about a steady place to live?: No Do you have any problems with any of the following?: No known problems In the past 12 months,have you had to go without utilities?: No Have you or anyone in your house had to go without enough: No Transportation Issues: No Has anyone in your support network made you feel unsafe?: No Does the patient want assistance with any of the above?: No - Physical Exam Vital Signs: Vital Signs - 24 hr Temp Pulse Resp BP BP Pulse Ox 09/24/23 18:24 98.6 F 113 H 18 153/80 96 09/24/23 18:00 110 H 20 135/75 09/24/23 17:45 98 09/24/23 17:30 110 H 15 143/77 09/24/23 17:00 105 H 10 L 146/81 09/24/23 16:30 104 H 19 155/82 09/24/23 16:01 95 H 13 160/78 96 09/24/23 16:00 94 H 16 96 09/24/23 15:50 96 H 19 97 09/24/23 15:40 95 H 17 98 09/24/23 15:35 100 H 16 100 09/24/23 15:24 129/70 09/24/23 15:00 141/76 09/24/23 14:49 97.6 F 92 H 18 158/89 98 General Appearance: no apparent distress, alert Neurologic Exam: alert, oriented x 3, cooperative, normal mood/affect, nml cerebellar function, nml station & gait, sensation nml, No motor deficits Eye Exam: PERRL/EOMI, eyes nml inspection Ears, Nose, Throat Exam: normal ENT inspection, TMs normal, pharynx normal, moist mucous membranes Neck Exam: normal inspection, non-tender, supple, full range of motion Respiratory Exam: normal breath sounds, lungs clear, No respiratory distress Cardiovascular Exam: regular rate/rhythm, normal heart sounds, normal peripheral pulses Gastrointestinal/Abdomen Exam: soft, normal bowel sounds, No tenderness, No mass Back Exam: normal inspection, normal range of motion, No CVA tenderness, No vertebral tenderness Extremity Exam: normal inspection, normal range of motion, pelvis stable Skin Exam: normal color, warm, dry, No rash Lymphatic Exam: No adenopathy Results - Labs Lab/Micro Results: Lab Results-Last 24 Hours 09/24/23 09/24/23 09/24/23 Range/Units 15:00 15:00 15:00 WBC 11.8 H (4.0-10.5) x10^3/uL RBC 4.24 (4.1-5.6) x10^6/uL Hgb 11.8 L (12.5-18.0) g/dL Hct 37.3 L (42-50) % MCV 88.0 (78-100) fL MCH 27.8 (26-32) pg MCHC 31.6 L (32-36) g/dL RDW 15.6 H (11.5-14.0) % Plt Count 317 (150-450) x10^3/uL MPV 12.2 H (7.5-11.0) fL Gran % 64.5 (36.0-66.0) % Immature Gran % (Auto) 1.4 H (0.00-0.4) % Nucleat RBC Rel Count 0.0 (0.00-0.1) % Eos # (Auto) 0.50 (0-0.5) x10^3/uL Immature Gran # (Auto) 0.16 H (0.00-0.03) x10^3u/L Absolute Lymphs (auto) 2.96 (1.0-4.6) x10^3/uL Absolute Monos (auto) 0.35 (0.0-1.3) x10^3/uL Absolute Nucleated RBC 0.00 (0.00-0.01) x10^3u/L Lymphocytes % 25.0 (24.0-44.0) % Monocytes % 3.0 (0.0-12.0) % Eosinophils % 4.2 (0.00-5.0) % Basophils % 1.9 (0.0-0.4) % Absolute Granulocytes 7.62 H (1.4-6.9) x10^3/uL Basophils # 0.23 (0-0.4) x10^3/uL Sodium 141 (135-145) mmol/L Potassium 4.3 (3.5-5.1) mmol/L Chloride 108 H (98-107) mmol/L Carbon Dioxide 21 L (22-30) mmol/L Anion Gap 15.8 H (5-15) MEQ/L BUN 24 H (9-20) mg/dL Creatinine 1.89 H (0.66-1.25) mg/dL Estimated GFR 35.0 ML/MIN Glucose 159 H (74-106) mg/dL Lactic Acid (0.4-2.0) Calcium 9.9 (8.4-10.2) mg/dL Total Bilirubin 0.70 (0.2-1.3) mg/dL Direct Bilirubin 0.2 (0.0-0.4) mg/dL AST 28 (17-59) U/L ALT 18 (0-50) U/L Alkaline Phosphatase 72 (38-126) U/L Troponin I < 0.012 (0.000-0.033) ng/mL Serum Total Protein 7.6 (6.3-8.2) g/dL Albumin 4.0 (3.5-5.0) g/dL Lipase 240 (23-300) U/L Urine Color (Yellow) Urine Appearance (Clear) Urine pH (4.6-8.0) Ur Specific [place] (1.005-1.030) Urine Protein (Negative) Urine Glucose (UA) (Negative) mg/dL Urine Ketones (Negative) Urine Blood (Negative) Urine Nitrite (Negative) Urine Bilirubin (Negative) Urine Urobilinogen (0.2) mg/dL Ur Leukocyte Esterase (Negative) U Hyaline Cast (Auto) (0-2) /LPF Urine Microscopic RBC (0-5) /HPF Urine Microscopic WBC (0-5) /HPF Ur Epithelial Cells (None Seen) /HPF Urine Bacteria (None Seen) /HPF Urine Culture Reflexed (NO) Influenza Type A Ag (NEGATIVE) Influenza Type B Ag (NEGATIVE) RSV (PCR) (NEGATIVE) SARS-CoV-2 (PCR) (NEGATIVE) 09/24/23 09/24/23 09/24/23 Range/Units 15:05 15:10 18:32 WBC (4.0-10.5) x10^3/uL RBC (4.1-5.6) x10^6/uL Hgb (12.5-18.0) g/dL Hct (42-50) % MCV (78-100) fL MCH (26-32) pg MCHC (32-36) g/dL RDW (11.5-14.0) % Plt Count (150-450) x10^3/uL MPV (7.5-11.0) fL Gran % (36.0-66.0) % Immature Gran % (Auto) (0.00-0.4) % Nucleat RBC Rel Count (0.00-0.1) % Eos # (Auto) (0-0.5) x10^3/uL Immature Gran # (Auto) (0.00-0.03) x10^3u/L Absolute Lymphs (auto) (1.0-4.6) x10^3/uL Absolute Monos (auto) (0.0-1.3) x10^3/uL Absolute Nucleated RBC (0.00-0.01) x10^3u/L Lymphocytes % (24.0-44.0) % Monocytes % (0.0-12.0) % Eosinophils % (0.00-5.0) % Basophils % (0.0-0.4) % Absolute Granulocytes (1.4-6.9) x10^3/uL Basophils # (0-0.4) x10^3/uL Sodium (135-145) mmol/L Potassium (3.5-5.1) mmol/L Chloride (98-107) mmol/L Carbon Dioxide (22-30) mmol/L Anion Gap (5-15) MEQ/L BUN (9-20) mg/dL Creatinine (0.66-1.25) mg/dL Estimated GFR ML/MIN Glucose (74-106) mg/dL Lactic Acid 1.9 (0.4-2.0) Calcium (8.4-10.2) mg/dL Total Bilirubin (0.2-1.3) mg/dL Direct Bilirubin (0.0-0.4) mg/dL AST (17-59) U/L ALT (0-50) U/L Alkaline Phosphatase (38-126) U/L Troponin I (0.000-0.033) ng/mL Serum Total Protein (6.3-8.2) g/dL Albumin (3.5-5.0) g/dL Lipase (23-300) U/L Urine Color Yellow (Yellow) Urine Appearance Clear (Clear) Urine pH 5.5 (4.6-8.0) Ur Specific [place] 1.020 (1.005-1.030) Urine Protein 100 A (Negative) Urine Glucose (UA) >=1000 A (Negative) mg/dL Urine Ketones 40 A (Negative) Urine Blood Negative (Negative) Urine Nitrite Negative (Negative) Urine Bilirubin Negative (Negative) Urine Urobilinogen 0.2 (0.2) mg/dL Ur Leukocyte Esterase Negative (Negative) U Hyaline Cast (Auto) NONE SEEN (0-2) /LPF Urine Microscopic RBC 0-2 (0-5) /HPF Urine Microscopic WBC 0-2 (0-5) /HPF Ur Epithelial Cells None Seen (None Seen) /HPF Urine Bacteria None Seen (None Seen) /HPF Urine Culture Reflexed NO (NO) Influenza Type A Ag NEGATIVE (NEGATIVE) Influenza Type B Ag NEGATIVE (NEGATIVE) RSV (PCR) NEGATIVE (NEGATIVE) SARS-CoV-2 (PCR) NEGATIVE (NEGATIVE) 09/24/23 Range/Units 19:18 WBC (4.0-10.5) x10^3/uL RBC (4.1-5.6) x10^6/uL Hgb (12.5-18.0) g/dL Hct (42-50) % MCV (78-100) fL MCH (26-32) pg MCHC (32-36) g/dL RDW (11.5-14.0) % Plt Count (150-450) x10^3/uL MPV (7.5-11.0) fL Gran % (36.0-66.0) % Immature Gran % (Auto) (0.00-0.4) % Nucleat RBC Rel Count (0.00-0.1) % Eos # (Auto) (0-0.5) x10^3/uL Immature Gran # (Auto) (0.00-0.03) x10^3u/L Absolute Lymphs (auto) (1.0-4.6) x10^3/uL Absolute Monos (auto) (0.0-1.3) x10^3/uL Absolute Nucleated RBC (0.00-0.01) x10^3u/L Lymphocytes % (24.0-44.0) % Monocytes % (0.0-12.0) % Eosinophils % (0.00-5.0) % Basophils % (0.0-0.4) % Absolute Granulocytes (1.4-6.9) x10^3/uL Basophils # (0-0.4) x10^3/uL Sodium (135-145) mmol/L Potassium (3.5-5.1) mmol/L Chloride (98-107) mmol/L Carbon Dioxide (22-30) mmol/L Anion Gap (5-15) MEQ/L BUN (9-20) mg/dL Creatinine (0.66-1.25) mg/dL Estimated GFR ML/MIN Glucose (74-106) mg/dL Lactic Acid (0.4-2.0) Calcium (8.4-10.2) mg/dL Total Bilirubin (0.2-1.3) mg/dL Direct Bilirubin (0.0-0.4) mg/dL AST (17-59) U/L ALT (0-50) U/L Alkaline Phosphatase (38-126) U/L Troponin I < 0.012 (0.000-0.033) ng/mL Serum Total Protein (6.3-8.2) g/dL Albumin (3.5-5.0) g/dL Lipase (23-300) U/L Urine Color (Yellow) Urine Appearance (Clear) Urine pH (4.6-8.0) Ur Specific [place] (1.005-1.030) Urine Protein (Negative) Urine Glucose (UA) (Negative) mg/dL Urine Ketones (Negative) Urine Blood (Negative) Urine Nitrite (Negative) Urine Bilirubin (Negative) Urine Urobilinogen (0.2) mg/dL Ur Leukocyte Esterase (Negative) U Hyaline Cast (Auto) (0-2) /LPF Urine Microscopic RBC (0-5) /HPF Urine Microscopic WBC (0-5) /HPF Ur Epithelial Cells (None Seen) /HPF Urine Bacteria (None Seen) /HPF Urine Culture Reflexed (NO) Influenza Type A Ag (NEGATIVE) Influenza Type B Ag (NEGATIVE) RSV (PCR) (NEGATIVE) SARS-CoV-2 (PCR) (NEGATIVE) - Radiology Impressions Radiology Exams & Impressions: Radiology Procedures Category Date Time Status ABDOMEN AND PELVIS W/0 CONTRAS [CT] Stat Exams 09/24/23 14:54 Completed CHEST 1 VIEW (PORTABLE) Stat Exams 09/24/23 14:54 Completed Assessment/Plan (1) Dehydration Current Visit: Yes Status: Acute Assessment & Plan: 1. Likely in setting of a viral GI bug 2. IVF 3. Hold home meds tonight due to nausea 4. Advance diet as tolerated Code(s): E86.0 - DEHYDRATION Telemedicine Encounter - Telemedicine Encounter Telemedicine Encounter: The entirety of this encounter was performed via Telemedicine"
[2023-09-24] MEDS: Sodium Chloride 0.9% 1000 ML 1,000 ML IV SCH (20:53)
[2023-09-24] MEDS: Zofran 4 MG/2 ML VIAL IV PRN (20:53)
[2023-09-25] MEDS ORDERED: NORCO 10-325 MG PO PRN (07:34)
[2023-09-25] MEDS ORDERED: DUONEB 0.5-3 MG/3 ml Neb IH PRN (07:34)
[2023-09-25] MEDS ORDERED: PROVENTIL 2.5 MG/3 ML NEB IH PRN (07:34)
[2023-09-25] MEDS ORDERED: Nitrostat 0.4 MG Tablet SL SCH (07:45)
[2023-09-25] MEDS ORDERED: MEDICATION INTERVENTION MC SCH (08:30)
[2023-09-25 09:03] LABS: Hematocrit 33.7 % (42-50); Hemoglobin 10.6 g/dL (12.5-18.0); Mean Cell Volume 88.5 fL (78-100); Mean Corpuscular Hemoglobin 27.8 pg (26-32); Mean Corpuscular Hgb Concent. 31.5 g/dL (32-36); Platelet Count 262 x10^3/uL (150-450); Red Blood Count 3.81 x10^6/uL (4.1-5.6); Red Cell Distribution Width 15.7 % (11.5-14.0); White Blood Count 9.4 x10^3/uL (4.0-10.5)
[2023-09-25 09:16] LABS: ALBUMIN 3.3 g/dL (3.5-5.0); BILIRUBIN,TOTAL 0.5 mg/dL (0.2-1.3); Creatinine 1 1.87 mg/dL (0.66-1.25); EST GLOMERULAR FILTRATION RATE 35.5 ML/MIN; Potassium 4.2 mmol/L (3.5-5.1); Total Protein 6.2 g/dL (6.3-8.2)
[2023-09-25] MEDS: Vitamin B-12 500 MCG PO SCH (09:53)
[2023-09-25] MEDS: ELIQUIS 2.5 MG TABLET PO SCH (09:53)
[2023-09-25] MEDS: FEOSOL 325 MG PO SCH (09:53)
[2023-09-25] MEDS: Ritalin 5 MG PO SCH ×2 (09:53→14:01)
[2023-09-25] MEDS: Flomax 0.4 MG PO SCH (09:53)
[2023-09-25] MEDS: NORVASC 5 MG PO SCH (09:53)
[2023-09-25] MEDS: Imdur 60MG PO SCH (09:53)
[2023-09-25] MEDS: Protonix 40MG Tablet PO SCH (09:53)
[2023-09-25] MEDS: Lopressor 50 MG PO SCH (09:54)
[2023-09-25] MEDS: THERAGRAN MULTIVITAMIN PO SCH (09:54)
[2023-09-25] MEDS: LYRICA 150MG PO SCH (09:54)
[2023-09-25] MEDS: Lasix 40 MG PO SCH (09:54)
[2023-09-25] MEDS: ZYLOPRIM 300 MG PO SCH (09:54)
[2023-09-25] MEDS ORDERED: Lyrica 50MG PO SCH (10:00)
[2023-09-25] MEDS ORDERED: NON-FORMULARY ITEM (Multivitamin [Multivitamins] 1 EACH Tablet) PO SCH (10:00)
[2023-09-25] MEDS ORDERED: LASIX 20 MG PO SCH (10:00)
[2023-09-25] MEDS ORDERED: NON-FORMULARY ITEM (Dapagliflozin Propanediol [Farxiga] 10 MG Tablet) PO SCH (10:00)
[2023-09-25] MEDS ORDERED: NON-FORMULARY ITEM (Apixaban*** [Eliquis 5 Mg Tablet***] 5 MG Tablet) PO SCH (10:00)
[2023-09-25] MEDS ORDERED: Lopressor 25MG Tab PO SCH (10:00)
[2023-09-25] MEDS ORDERED: METHYLPHENIDATE HCL 20 MG PO SCH (10:00)
[2023-09-25] MEDS: Sodium Bicarbonate 50 MEQ/50 ML VIAL*** 150 MEQ in Dextrose 5%/Water IV Soln. 1000 ML 1... IV SCH (10:39)
[2023-09-25] MEDS: HUMALOG SQ PRN (12:08)
--- NOTE | 2023-09-25 12:09 | PCM.NOTE ---
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 He presented to the ER on 09/23 with a few days of loose stools, nausea, and abdominal discomfort. Denies fevers, sick contacts or recent travel. No blood in stool. CT scan in the ED was unremarkable. Labs showed an HELENE, suggestive of dehydration. He is feeling better today with IV hydration. He has had no further bouts of diarrhea or N/V since admission. He continues to have LLQ and RLQ abd. pain. Bicarb is 16 likely from N/V/D. Bicarb gtt started. Advised pt to stay another day as he was wanting to go home. He did explain that coffee upset his stomach this am. Advised not to drink that anymore. He denies any further concerns at this time. - Review of Systems Constitutional: No Fever, No Chills Eyes: No Symptoms Ears, Nose, & Throat: No Symptoms Respiratory: No Cough, No Short Of Breath Cardiac: No Chest Pain, No Edema, No Syncope Abdominal/Gastrointestinal: Abdominal Pain (LLQ and RLQ), No Nausea, No Vomiting, No Diarrhea Genitourinary Symptoms: No Dysuria Musculoskeletal: No Back Pain, No Neck Pain Skin: No Rash Neurological: No Dizziness, No Focal Weakness, No Sensory Changes Psychological: No Symptoms Endocrine: No Symptoms Hematologic/Lymphatic: No Symptoms Immunological/Allergic: No Symptoms Objective Exam General Appearance: no apparent distress, alert Neurologic Exam: alert, oriented x 3, cooperative, normal mood/affect, nml cerebellar function, sensation nml, No motor deficits Skin Exam: normal color, warm, dry Eye Exam: PERRL, EOMI, eyes nml inspection Ears, Nose, Throat Exam: normal ENT inspection, pharynx normal, moist mucous membranes Neck Exam: normal inspection, non-tender, supple, full range of motion Respiratory Exam: normal breath sounds, lungs clear, No respiratory distress Cardiovascular Exam: regular rate/rhythm, normal heart sounds Gastrointestinal/Abdomen Exam: soft, tenderness (LLQ, RLQ with palpation), No mass Extremity Exam: normal inspection, normal range of motion Back Exam: normal inspection, normal range of motion, No CVA tenderness, No vertebral tenderness Male Genitalia Exam: deferred Rectal Exam: deferred Objective Data Vital Signs: Vital Signs - 24 hr Temp Pulse Resp BP BP Pulse Ox 09/25/23 11:50 97.2 F 85 16 96 09/25/23 08:27 83 16 93 L 09/25/23 07:01 97.9 F 92 H 16 137/64 95 09/25/23 04:00 98.7 F 96 H 18 135/73 97 09/25/23 00:00 98.5 F 105 H 17 120/63 96 09/24/23 18:24 98.6 F 113 H 18 153/80 96 09/24/23 18:00 110 H 20 135/75 09/24/23 17:45 98 09/24/23 17:30 110 H 15 143/77 09/24/23 17:00 105 H 10 L 146/81 09/24/23 16:30 104 H 19 155/82 09/24/23 16:01 95 H 13 160/78 96 09/24/23 16:00 94 H 16 96 09/24/23 15:50 96 H 19 97 09/24/23 15:40 95 H 17 98 09/24/23 15:35 100 H 16 100 09/24/23 15:24 129/70 09/24/23 15:00 141/76 09/24/23 14:49 97.6 F 92 H 18 158/89 98 Pain Assessment - Last Documented Pain Intensity 0 Intake and Output: Intake & Output 09/22/23 09/23/23 09/24/23 09/25/23 11:59 11:59 11:59 11:59 Intake Total 1877 Output Total 550 Balance 1327 Weight 80.3 kg Lab Results: Lab Results-Last 24 Hours 09/24/23 09/24/23 09/24/23 Range/Units 15:00 15:00 15:00 WBC 11.8 H (4.0-10.5) x10^3/uL RBC 4.24 (4.1-5.6) x10^6/uL Hgb 11.8 L (12.5-18.0) g/dL Hct 37.3 L (42-50) % MCV 88.0 (78-100) fL MCH 27.8 (26-32) pg MCHC 31.6 L (32-36) g/dL RDW 15.6 H (11.5-14.0) % Plt Count 317 (150-450) x10^3/uL MPV 12.2 H (7.5-11.0) fL Gran % 64.5 (36.0-66.0) % Immature Gran % (Auto) 1.4 H (0.00-0.4) % Nucleat RBC Rel Count 0.0 (0.00-0.1) % Eos # (Auto) 0.50 (0-0.5) x10^3/uL Immature Gran # (Auto) 0.16 H (0.00-0.03) x10^3u/L Absolute Lymphs (auto) 2.96 (1.0-4.6) x10^3/uL Absolute Monos (auto) 0.35 (0.0-1.3) x10^3/uL Absolute Nucleated RBC 0.00 (0.00-0.01) x10^3u/L Lymphocytes % 25.0 (24.0-44.0) % Monocytes % 3.0 (0.0-12.0) % Eosinophils % 4.2 (0.00-5.0) % Basophils % 1.9 (0.0-0.4) % Absolute Granulocytes 7.62 H (1.4-6.9) x10^3/uL Basophils # 0.23 (0-0.4) x10^3/uL Sodium 141 (135-145) mmol/L Potassium 4.3 (3.5-5.1) mmol/L Chloride 108 H (98-107) mmol/L Carbon Dioxide 21 L (22-30) mmol/L Anion Gap 15.8 H (5-15) MEQ/L BUN 24 H (9-20) mg/dL Creatinine 1.89 H (0.66-1.25) mg/dL Estimated GFR 35.0 ML/MIN Glucose 159 H (74-106) mg/dL POC Glucometer (74 to 106) mg/dL Lactic Acid (0.4-2.0) Calcium 9.9 (8.4-10.2) mg/dL Total Bilirubin 0.70 (0.2-1.3) mg/dL Direct Bilirubin 0.2 (0.0-0.4) mg/dL AST 28 (17-59) U/L ALT 18 (0-50) U/L Alkaline Phosphatase 72 (38-126) U/L Troponin I < 0.012 (0.000-0.033) ng/mL Serum Total Protein 7.6 (6.3-8.2) g/dL Albumin 4.0 (3.5-5.0) g/dL Lipase 240 (23-300) U/L Urine Color (Yellow) Urine Appearance (Clear) Urine pH (4.6-8.0) Ur Specific [place] (1.005-1.030) Urine Protein (Negative) Urine Glucose (UA) (Negative) mg/dL Urine Ketones (Negative) Urine Blood (Negative) Urine Nitrite (Negative) Urine Bilirubin (Negative) Urine Urobilinogen (0.2) mg/dL Ur Leukocyte Esterase (Negative) U Hyaline Cast (Auto) (0-2) /LPF Urine Microscopic RBC (0-5) /HPF Urine Microscopic WBC (0-5) /HPF Ur Epithelial Cells (None Seen) /HPF Urine Bacteria (None Seen) /HPF Urine Culture Reflexed (NO) Influenza Type A Ag (NEGATIVE) Influenza Type B Ag (NEGATIVE) RSV (PCR) (NEGATIVE) SARS-CoV-2 (PCR) (NEGATIVE) 09/24/23 09/24/23 09/24/23 Range/Units 15:05 15:10 18:32 WBC (4.0-10.5) x10^3/uL RBC (4.1-5.6) x10^6/uL Hgb (12.5-18.0) g/dL Hct (42-50) % MCV (78-100) fL MCH (26-32) pg MCHC (32-36) g/dL RDW (11.5-14.0) % Plt Count (150-450) x10^3/uL MPV (7.5-11.0) fL Gran % (36.0-66.0) % Immature Gran % (Auto) (0.00-0.4) % Nucleat RBC Rel Count (0.00-0.1) % Eos # (Auto) (0-0.5) x10^3/uL Immature Gran # (Auto) (0.00-0.03) x10^3u/L Absolute Lymphs (auto) (1.0-4.6) x10^3/uL Absolute Monos (auto) (0.0-1.3) x10^3/uL Absolute Nucleated RBC (0.00-0.01) x10^3u/L Lymphocytes % (24.0-44.0) % Monocytes % (0.0-12.0) % Eosinophils % (0.00-5.0) % Basophils % (0.0-0.4) % Absolute Granulocytes (1.4-6.9) x10^3/uL Basophils # (0-0.4) x10^3/uL Sodium (135-145) mmol/L Potassium (3.5-5.1) mmol/L Chloride (98-107) mmol/L Carbon Dioxide (22-30) mmol/L Anion Gap (5-15) MEQ/L BUN (9-20) mg/dL Creatinine (0.66-1.25) mg/dL Estimated GFR ML/MIN Glucose (74-106) mg/dL POC Glucometer (74 to 106) mg/dL Lactic Acid 1.9 (0.4-2.0) Calcium (8.4-10.2) mg/dL Total Bilirubin (0.2-1.3) mg/dL Direct Bilirubin (0.0-0.4) mg/dL AST (17-59) U/L ALT (0-50) U/L Alkaline Phosphatase (38-126) U/L Troponin I (0.000-0.033) ng/mL Serum Total Protein (6.3-8.2) g/dL Albumin (3.5-5.0) g/dL Lipase (23-300) U/L Urine Color Yellow (Yellow) Urine Appearance Clear (Clear) Urine pH 5.5 (4.6-8.0) Ur Specific [place] 1.020 (1.005-1.030) Urine Protein 100 A (Negative) Urine Glucose (UA) >=1000 A (Negative) mg/dL Urine Ketones 40 A (Negative) Urine Blood Negative (Negative) Urine Nitrite Negative (Negative) Urine Bilirubin Negative (Negative) Urine Urobilinogen 0.2 (0.2) mg/dL Ur Leukocyte Esterase Negative (Negative) U Hyaline Cast (Auto) NONE SEEN (0-2) /LPF Urine Microscopic RBC 0-2 (0-5) /HPF Urine Microscopic WBC 0-2 (0-5) /HPF Ur Epithelial Cells None Seen (None Seen) /HPF Urine Bacteria None Seen (None Seen) /HPF Urine Culture Reflexed NO (NO) Influenza Type A Ag NEGATIVE (NEGATIVE) Influenza Type B Ag NEGATIVE (NEGATIVE) RSV (PCR) NEGATIVE (NEGATIVE) SARS-CoV-2 (PCR) NEGATIVE (NEGATIVE) 09/24/23 09/24/23 09/25/23 Range/Units 19:18 21:12 07:06 WBC (4.0-10.5) x10^3/uL RBC (4.1-5.6) x10^6/uL Hgb (12.5-18.0) g/dL Hct (42-50) % MCV (78-100) fL MCH (26-32) pg MCHC (32-36) g/dL RDW (11.5-14.0) % Plt Count (150-450) x10^3/uL MPV (7.5-11.0) fL Gran % (36.0-66.0) % Immature Gran % (Auto) (0.00-0.4) % Nucleat RBC Rel Count (0.00-0.1) % Eos # (Auto) (0-0.5) x10^3/uL Immature Gran # (Auto) (0.00-0.03) x10^3u/L Absolute Lymphs (auto) (1.0-4.6) x10^3/uL Absolute Monos (auto) (0.0-1.3) x10^3/uL Absolute Nucleated RBC (0.00-0.01) x10^3u/L Lymphocytes % (24.0-44.0) % Monocytes % (0.0-12.0) % Eosinophils % (0.00-5.0) % Basophils % (0.0-0.4) % Absolute Granulocytes (1.4-6.9) x10^3/uL Basophils # (0-0.4) x10^3/uL Sodium (135-145) mmol/L Potassium (3.5-5.1) mmol/L Chloride (98-107) mmol/L Carbon Dioxide (22-30) mmol/L Anion Gap (5-15) MEQ/L BUN (9-20) mg/dL Creatinine (0.66-1.25) mg/dL Estimated GFR ML/MIN Glucose (74-106) mg/dL POC Glucometer 154 H 124 H (74 to 106) mg/dL Lactic Acid (0.4-2.0) Calcium (8.4-10.2) mg/dL Total Bilirubin (0.2-1.3) mg/dL Direct Bilirubin (0.0-0.4) mg/dL AST (17-59) U/L ALT (0-50) U/L Alkaline Phosphatase (38-126) U/L Troponin I < 0.012 (0.000-0.033) ng/mL Serum Total Protein (6.3-8.2) g/dL Albumin (3.5-5.0) g/dL Lipase (23-300) U/L Urine Color (Yellow) Urine Appearance (Clear) Urine pH (4.6-8.0) Ur Specific [place] (1.005-1.030) Urine Protein (Negative) Urine Glucose (UA) (Negative) mg/dL Urine Ketones (Negative) Urine Blood (Negative) Urine Nitrite (Negative) Urine Bilirubin (Negative) Urine Urobilinogen (0.2) mg/dL Ur Leukocyte Esterase (Negative) U Hyaline Cast (Auto) (0-2) /LPF Urine Microscopic RBC (0-5) /HPF Urine Microscopic WBC (0-5) /HPF Ur Epithelial Cells (None Seen) /HPF Urine Bacteria (None Seen) /HPF Urine Culture Reflexed (NO) Influenza Type A Ag (NEGATIVE) Influenza Type B Ag (NEGATIVE) RSV (PCR) (NEGATIVE) SARS-CoV-2 (PCR) (NEGATIVE) 09/25/23 09/25/23 09/25/23 Range/Units 08:26 08:26 10:15 WBC 9.4 (4.0-10.5) x10^3/uL RBC 3.81 L (4.1-5.6) x10^6/uL Hgb 10.6 L (12.5-18.0) g/dL Hct 33.7 L (42-50) % MCV 88.5 (78-100) fL MCH 27.8 (26-32) pg MCHC 31.5 L (32-36) g/dL RDW 15.7 H (11.5-14.0) % Plt Count 262 (150-450) x10^3/uL MPV 12.0 H (7.5-11.0) fL Gran % (36.0-66.0) % Immature Gran % (Auto) (0.00-0.4) % Nucleat RBC Rel Count (0.00-0.1) % Eos # (Auto) (0-0.5) x10^3/uL Immature Gran # (Auto) (0.00-0.03) x10^3u/L Absolute Lymphs (auto) (1.0-4.6) x10^3/uL Absolute Monos (auto) (0.0-1.3) x10^3/uL Absolute Nucleated RBC (0.00-0.01) x10^3u/L Lymphocytes % (24.0-44.0) % Monocytes % (0.0-12.0) % Eosinophils % (0.00-5.0) % Basophils % (0.0-0.4) % Absolute Granulocytes (1.4-6.9) x10^3/uL Basophils # (0-0.4) x10^3/uL Sodium 140 (135-145) mmol/L Potassium 4.2 (3.5-5.1) mmol/L Chloride 112 H (98-107) mmol/L Carbon Dioxide 16 L* (22-30) mmol/L Anion Gap 16.0 H (5-15) MEQ/L BUN 25 H (9-20) mg/dL Creatinine 1.87 H (0.66-1.25) mg/dL Estimated GFR 35.5 ML/MIN Glucose 116 H (74-106) mg/dL POC Glucometer (74 to 106) mg/dL Lactic Acid 0.8 (0.4-2.0) Calcium 9.0 (8.4-10.2) mg/dL Total Bilirubin 0.50 (0.2-1.3) mg/dL Direct Bilirubin (0.0-0.4) mg/dL AST 28 (17-59) U/L ALT 15 (0-50) U/L Alkaline Phosphatase 59 (38-126) U/L Troponin I (0.000-0.033) ng/mL Serum Total Protein 6.2 L (6.3-8.2) g/dL Albumin 3.3 L (3.5-5.0) g/dL Lipase (23-300) U/L Urine Color (Yellow) Urine Appearance (Clear) Urine pH (4.6-8.0) Ur Specific [place] (1.005-1.030) Urine Protein (Negative) Urine Glucose (UA) (Negative) mg/dL Urine Ketones (Negative) Urine Blood (Negative) Urine Nitrite (Negative) Urine Bilirubin (Negative) Urine Urobilinogen (0.2) mg/dL Ur Leukocyte Esterase (Negative) U Hyaline Cast (Auto) (0-2) /LPF Urine Microscopic RBC (0-5) /HPF Urine Microscopic WBC (0-5) /HPF Ur Epithelial Cells (None Seen) /HPF Urine Bacteria (None Seen) /HPF Urine Culture Reflexed (NO) Influenza Type A Ag (NEGATIVE) Influenza Type B Ag (NEGATIVE) RSV (PCR) (NEGATIVE) SARS-CoV-2 (PCR) (NEGATIVE) 09/25/23 Range/Units 11:23 WBC (4.0-10.5) x10^3/uL RBC (4.1-5.6) x10^6/uL Hgb (12.5-18.0) g/dL Hct (42-50) % MCV (78-100) fL MCH (26-32) pg MCHC (32-36) g/dL RDW (11.5-14.0) % Plt Count (150-450) x10^3/uL MPV (7.5-11.0) fL Gran % (36.0-66.0) % Immature Gran % (Auto) (0.00-0.4) % Nucleat RBC Rel Count (0.00-0.1) % Eos # (Auto) (0-0.5) x10^3/uL Immature Gran # (Auto) (0.00-0.03) x10^3u/L Absolute Lymphs (auto) (1.0-4.6) x10^3/uL Absolute Monos (auto) (0.0-1.3) x10^3/uL Absolute Nucleated RBC (0.00-0.01) x10^3u/L Lymphocytes % (24.0-44.0) % Monocytes % (0.0-12.0) % Eosinophils % (0.00-5.0) % Basophils % (0.0-0.4) % Absolute Granulocytes (1.4-6.9) x10^3/uL Basophils # (0-0.4) x10^3/uL Sodium (135-145) mmol/L Potassium (3.5-5.1) mmol/L Chloride (98-107) mmol/L Carbon Dioxide (22-30) mmol/L Anion Gap (5-15) MEQ/L BUN (9-20) mg/dL Creatinine (0.66-1.25) mg/dL Estimated GFR ML/MIN Glucose (74-106) mg/dL POC Glucometer 196 H (74 to 106) mg/dL Lactic Acid (0.4-2.0) Calcium (8.4-10.2) mg/dL Total Bilirubin (0.2-1.3) mg/dL Direct Bilirubin (0.0-0.4) mg/dL AST (17-59) U/L ALT (0-50) U/L Alkaline Phosphatase (38-126) U/L Troponin I (0.000-0.033) ng/mL Serum Total Protein (6.3-8.2) g/dL Albumin (3.5-5.0) g/dL Lipase (23-300) U/L Urine Color (Yellow) Urine Appearance (Clear) Urine pH (4.6-8.0) Ur Specific [place] (1.005-1.030) Urine Protein (Negative) Urine Glucose (UA) (Negative) mg/dL Urine Ketones (Negative) Urine Blood (Negative) Urine Nitrite (Negative) Urine Bilirubin (Negative) Urine Urobilinogen (0.2) mg/dL Ur Leukocyte Esterase (Negative) U Hyaline Cast (Auto) (0-2) /LPF Urine Microscopic RBC (0-5) /HPF Urine Microscopic WBC (0-5) /HPF Ur Epithelial Cells (None Seen) /HPF Urine Bacteria (None Seen) /HPF Urine Culture Reflexed (NO) Influenza Type A Ag (NEGATIVE) Influenza Type B Ag (NEGATIVE) RSV (PCR) (NEGATIVE) SARS-CoV-2 (PCR) (NEGATIVE) Radiology Exams: Radiology Procedures Category Date Time Status ABDOMEN AND PELVIS W/0 CONTRAS [CT] Stat Exams 09/24/23 14:54 Completed CHEST 1 VIEW (PORTABLE) Stat Exams 09/24/23 14:54 Completed Assessment/Plan (1) Viral gastroenteritis Current Visit: Yes Status: Acute Assessment & Plan: - C-diff and stool culture pending - Pt has not had diarrhea or N/V since admission - carb consistent diet started today - IVF Code(s): A08.4 - VIRAL INTESTINAL INFECTION, UNSPECIFIED (2) Dehydration Current Visit: Yes Status: Acute Assessment & Plan: - IVF changed to bicarb gtt - anion gap 16- trend Code(s): E86.0 - DEHYDRATION (3) Low bicarbonate Current Visit: Yes Status: Acute Assessment & Plan: - 2:2 V/D, gastroenteritis, HELENE - CO2 16 - Bicarb gtt started Code(s): E87.8 - OTH DISORDERS OF ELECTROLYTE AND FLUID BALANCE, NEC (4) Abdominal pain Current Visit: No Status: Acute Assessment & Plan: - LLQ, and RLQ - 2:2 gastroenteritis - Abd CT/Pelvis> 09/23 IMPRESSION: 1. No obvious acute intra-abdominal abnormality was detected. 2. No acute interval change was noted from the previous CT abdomen. Code(s): R10.9 - UNSPECIFIED ABDOMINAL PAIN (5) Acute on chronic renal failure Current Visit: No Status: Acute Assessment & Plan: - Creat 1.87- BL 1.76 - IVF - trend - Follows Dr. Delaney in [place] Code(s): N17.9 - ACUTE KIDNEY FAILURE, UNSPECIFIED; N18.9 - CHRONIC KIDNEY DISE ASE, UNSPECIFIED (6) Afib Current Visit: No Status: Chronic Assessment & Plan: - Chronic - Continue Eliquis - tele Code(s): I48.91 - UNSPECIFIED ATRIAL FIBRILLATION (7) HTN (hypertension) Current Visit: Yes Status: Chronic Assessment & Plan: - BP stable - Continue home BP meds VTE: Eliquis PPI: Protonix Next of KIN: Whitnye Domínguez, spouse [phone] D/C plan: 1-2 days Code status: Full Code(s): I10 - ESSENTIAL (PRIMARY) HYPERTENSION
[2023-09-25] MEDS: LUMIGAN 0.01% 2.5 ML OP SCH (22:53)
[2023-09-26 04:55] LABS: Hematocrit 28.8 % (42-50); Hemoglobin 9.6 g/dL (12.5-18.0); Mean Cell Volume 84.2 fL (78-100); Mean Corpuscular Hemoglobin 28.1 pg (26-32); Mean Corpuscular Hgb Concent. 33.3 g/dL (32-36); Mean Platelet Volume 12.1 fL (7.5-11.0); Platelet Count 190 x10^3/uL (150-450); Red Blood Count 3.42 x10^6/uL (4.1-5.6); Red Cell Distribution Width 14.9 % (11.5-14.0); White Blood Count 6.5 x10^3/uL (4.0-10.5)
[2023-09-26 05:17] LABS: ALBUMIN 2.9 g/dL (3.5-5.0); ANION GAP 7.2 MEQ/L (5-15); BILIRUBIN,TOTAL 0.2 mg/dL (0.2-1.3); Calcium 8.4 mg/dL (8.4-10.2); Creatinine 1 1.76 mg/dL (0.66-1.25); EST GLOMERULAR FILTRATION RATE 38.1 ML/MIN; Potassium 3.2 mmol/L (3.5-5.1); Total Protein 5.7 g/dL (6.3-8.2)
--- NOTE | 2023-09-26 05:36 | PCM.NOTE ---
Date and Time: 09/26/23 0532 Subjective Assessment: Mr. Givens is an 83 year old male admitted to [facility] on 09/24/23 experiencing symptoms of abdominal pain, loose stools, nausea, poor appetite, cough, and chest congestion with the onset of four weeks ago. Labs noting acute on chronic renal failure suggestive of dehydration. No acute findings on CT of abdomen or CXR. Patient admitted with viral gastroenteritis and dehydration. No further N/V/D since admission. Bicarb drip initiated 09/25/23 for CO2 level of 16 likely secondary to N/V/D. Objective Data Vital Signs: Vital Signs - 24 hr Temp Pulse Resp BP Pulse Ox 09/26/23 04:00 97.9 F 78 16 127/58 96 09/26/23 00:00 98.0 F 69 19 112/53 95 09/25/23 20:00 98.2 F 71 18 101/52 93 L 09/25/23 14:52 97.0 F 61 16 127/61 95 09/25/23 11:50 97.2 F 85 16 96 09/25/23 08:27 83 16 93 L 09/25/23 07:01 97.9 F 92 H 16 137/64 95 Pain Assessment - Last Documented Pain Intensity 0 Intake and Output: Intake & Output 09/23/23 09/24/23 09/25/23 09/26/23 11:59 11:59 11:59 11:59 Intake Total 1877 4626 Output Total 550 2975 Balance 1327 1651 Weight 80.3 kg Lab Results: Lab Results-Last 24 Hours 09/25/23 09/25/23 09/25/23 Range/Units 07:06 08:26 08:26 WBC 9.4 (4.0-10.5) x10^3/uL RBC 3.81 L (4.1-5.6) x10^6/uL Hgb 10.6 L (12.5-18.0) g/dL Hct 33.7 L (42-50) % MCV 88.5 (78-100) fL MCH 27.8 (26-32) pg MCHC 31.5 L (32-36) g/dL RDW 15.7 H (11.5-14.0) % Plt Count 262 (150-450) x10^3/uL MPV 12.0 H (7.5-11.0) fL Sodium 140 (135-145) mmol/L Potassium 4.2 (3.5-5.1) mmol/L Chloride 112 H (98-107) mmol/L Carbon Dioxide 16 L* (22-30) mmol/L Anion Gap 16.0 H (5-15) MEQ/L BUN 25 H (9-20) mg/dL Creatinine 1.87 H (0.66-1.25) mg/dL Estimated GFR 35.5 ML/MIN Glucose 116 H (74-106) mg/dL POC Glucometer 124 H (74 to 106) mg/dL Lactic Acid (0.4-2.0) Calcium 9.0 (8.4-10.2) mg/dL Total Bilirubin 0.50 (0.2-1.3) mg/dL AST 28 (17-59) U/L ALT 15 (0-50) U/L Alkaline Phosphatase 59 (38-126) U/L Serum Total Protein 6.2 L (6.3-8.2) g/dL Albumin 3.3 L (3.5-5.0) g/dL 09/25/23 09/25/23 09/26/23 Range/Units 10:15 11:23 04:20 WBC 6.5 (4.0-10.5) x10^3/uL RBC 3.42 L (4.1-5.6) x10^6/uL Hgb 9.6 L (12.5-18.0) g/dL Hct 28.8 L (42-50) % MCV 84.2 (78-100) fL MCH 28.1 (26-32) pg MCHC 33.3 (32-36) g/dL RDW 14.9 H (11.5-14.0) % Plt Count 190 (150-450) x10^3/uL MPV 12.1 H (7.5-11.0) fL Sodium (135-145) mmol/L Potassium (3.5-5.1) mmol/L Chloride (98-107) mmol/L Carbon Dioxide (22-30) mmol/L Anion Gap (5-15) MEQ/L BUN (9-20) mg/dL Creatinine (0.66-1.25) mg/dL Estimated GFR ML/MIN Glucose (74-106) mg/dL POC Glucometer 196 H (74 to 106) mg/dL Lactic Acid 0.8 (0.4-2.0) Calcium (8.4-10.2) mg/dL Total Bilirubin (0.2-1.3) mg/dL AST (17-59) U/L ALT (0-50) U/L Alkaline Phosphatase (38-126) U/L Serum Total Protein (6.3-8.2) g/dL Albumin (3.5-5.0) g/dL Radiology Exams: Radiology Procedures Category Date Time Status ABDOMEN AND PELVIS W/0 CONTRAS [CT] Stat Exams 09/24/23 14:54 Completed CHEST 1 VIEW (PORTABLE) Stat Exams 09/24/23 14:54 Completed Assessment/Plan (1) Viral gastroenteritis Current Visit: Yes Status: Acute Assessment & Plan: - C-diff and stool culture pending - Pt has not had diarrhea or N/V since admission - carb consistent diet - IVF Code(s): A08.4 - VIRAL INTESTINAL INFECTION, UNSPECIFIED (2) Dehydration Current Visit: Yes Status: Acute Assessment & Plan: - IVF changed to bicarb gtt - anion gap 16- trend Code(s): E86.0 - DEHYDRATION (3) Low bicarbonate Current Visit: Yes Status: Acute Assessment & Plan: - 2:2 V/D, gastroenteritis, HELENE - CO2 16 - Bicarb gtt started Code(s): E87.8 - OTH DISORDERS OF ELECTROLYTE AND FLUID BALANCE, NEC (4) Abdominal pain Current Visit: No Status: Acute Assessment & Plan: LLQ, and RLQ - 2:2 gastroenteritis - Abd CT/Pelvis> 09/23 with no acute findings Code(s): R10.9 - UNSPECIFIED ABDOMINAL PAIN (5) Acute on chronic renal failure Current Visit: No Status: Acute Assessment & Plan: - Creat 1.87- BL 1.76 - IVF - trend - Follows Dr. Delaney in [place] Code(s): N17.9 - ACUTE KIDNEY FAILURE, UNSPECIFIED; N18.9 - CHRONIC KIDNEY DISEASE, UNSPECIFIED (6) Afib Current Visit: No Status: Chronic Assessment & Plan: - Chronic - Continue Eliquis - tele Code(s): I48.91 - UNSPECIFIED ATRIAL FIBRILLATION (7) HTN (hypertension) Current Visit: No Status: Chronic Qualifiers: Hypertension type: primary hypertension Qualified Code(s): I10 - Essential (primary) hypertension Assessment & Plan: - BP stable - Continue home BP meds VTE: Eliquis PPI: Protonix Next of KIN: Whitney Domínguez, spouse [phone] D/C plan: 1-2 days Code status: Full Code(s): I10 - ESSENTIAL (PRIMARY) HYPERTENSION
[2023-09-26 08:04] VITALS: RESP 20
[2023-09-26] MEDS: Klor Con PO SCH (08:08)
--- NOTE | 2023-09-26 11:32 | PCM.DS ---
Discharge Summary Date of Admission: 09/24/23 18:14 Date of Discharge: 09/26/23 Admitting Physician: PUSHPA ALFONSO MD Primary Care Provider: JUMA LANE Allergies Allergies Iodinated Contrast Media [Iodinated Contrast Media - IV Dye] Allergy (Intermediate, Verified 09/24/23 15:06) unknown- hives morphine Allergy (Intermediate, Verified 09/24/23 15:06) confusion and combative hydromorphone HCl [From Dilaudid] Adverse Reaction (Intermediate, Verified 09/24/23 15:06) confusion and combative oxycodone HCl [From OxyContin] Adverse Reaction (Intermediate, Verified 09/24/23 15:06) confusion/ combative Hospital Summary - Hospital Course Hospital Course: Mr. Givens is an 83 year old male admitted to [facility] on 09/24/23 experiencing symptoms of abdominal pain, loose stools, nausea, poor appetite, cough, and chest congestion with the onset of four weeks ago. Labs noting acute on chronic renal failure suggestive of dehydration. No acute findings on CT of abdomen or CXR. Patient admitted with viral gastroenteritis and dehydration. No further N/V/D since admission. Bicarb drip initiated 09/25/23 for CO2 level of 16 likely secondary to N/V/D, this has resolved. Patient is a his baseline creat. Electrolytes have been replenished. He is tolerating a regular diet with no further episodes of N/V/D. He is requesting discharge today. Discharge Note New Diagnosis: Viral gastroenteritis New Medications:none Follow Up: pcp Latest Assessment & Plan (1) Viral gastroenteritis Current Visit: Yes Status: Acute Assessment & Plan: - C-diff and stool culture pending - Pt has not had diarrhea or N/V since admission - carb consistent diet - IVF 09/25: -no further episodes on N/V/D - tolerating regular diet -acidosis resolved Code(s): A08.4 - VIRAL INTESTINAL INFECTION, UNSPECIFIED (2) Dehydration Current Visit: Yes Status: Acute Assessment & Plan: - IVF changed to bicarb gtt - anion gap 16- trend 09/25: -resolved Code(s): E86.0 - DEHYDRATION (3) Low bicarbonate Current Visit: Yes Status: Acute Assessment & Plan: - 2:2 V/D, gastroenteritis, HELENE - CO2 16 - Bicarb gtt started 09/25: -resolved Code(s): E87.8 - OTH DISORDERS OF ELECTROLYTE AND FLUID BALANCE, NEC (4) Abdominal pain Current Visit: No Status: Acute Assessment & Plan: LLQ, and RLQ - 2:2 gastroenteritis - Abd CT/Pelvis> 09/23 with no acute findings Code(s): R10.9 - UNSPECIFIED ABDOMINAL PAIN (5) Acute on chronic renal failure Current Visit: No Status: Acute Assessment & Plan: - Creat 1.87- BL 1.76 - IVF - trend - Follows Dr. Delaney in [place] 09/25: -at baseline Code(s): N17.9 - ACUTE KIDNEY FAILURE, UNSPECIFIED; N18.9 - CHRONIC KIDNEY DISEASE, UNSPECIFIED (6) Afib Current Visit: No Status: Chronic Assessment & Plan: - Chronic - Continue Eliquis - tele Code(s): I48.91 - UNSPECIFIED ATRIAL FIBRILLATION (7) HTN (hypertension) Current Visit: No Status: Chronic Qualifiers: Hypertension type: primary hypertension Qualified Code(s): I10 - Essential (primary) hypertension Assessment & Plan: - BP stable - Continue home BP meds (8) Hypokalemia -replenish per protocol -Likely secondary to GI loss I spent 35 minutes [id number] with the patient on the day of discharge performing discharge exam, discussing hospital stay and discharge instructions with patient and caregivers, preparation of discharge records, prescriptions & referral forms and addressing any questions/concerns the patient had as documented above. - Vitals & Intake/Output Vital Signs: Vital Signs Temperature 98.7 F 09/26/23 08:00 Pulse Rate 96 H 09/26/23 08:00 Respiratory Rate 20 09/26/23 08:00 Blood Pressure 147/70 09/26/23 08:00 O2 Sat by Pulse Oximetry 97 09/26/23 08:00 Intake & Output: Intake & Output 09/23/23 09/24/23 09/25/23 09/26/23 11:59 11:59 11:59 11:59 Intake Total 1877 4986 Output Total 550 3750 Balance 1327 1236 Weight 80.3 kg - Lab Result Diagrams: 09/26/23 04:20 09/26/23 10:33 Lab Results-Last 24 Hrs: Lab Results-Last 24 Hours 09/26/23 09/26/23 09/26/23 Range/Units 04:20 04:20 04:20 WBC 6.5 (4.0-10.5) x10^3/uL RBC 3.42 L (4.1-5.6) x10^6/uL Hgb 9.6 L (12.5-18.0) g/dL Hct 28.8 L (42-50) % MCV 84.2 (78-100) fL MCH 28.1 (26-32) pg MCHC 33.3 (32-36) g/dL RDW 14.9 H (11.5-14.0) % Plt Count 190 (150-450) x10^3/uL MPV 12.1 H (7.5-11.0) fL Sodium 134 L (135-145) mmol/L Potassium 3.2 L D (3.5-5.1) mmol/L Chloride 99 (98-107) mmol/L Carbon Dioxide 31 H (22-30) mmol/L Anion Gap 7.2 (5-15) MEQ/L BUN 25 H (9-20) mg/dL Creatinine 1.76 H (0.66-1.25) mg/dL Estimated GFR 38.1 ML/MIN Glucose 220 H (74-106) mg/dL Calcium 8.4 (8.4-10.2) mg/dL Magnesium 1.7 (1.6-2.3) mg/dL Total Bilirubin 0.20 (0.2-1.3) mg/dL AST 23 (17-59) U/L ALT 17 (0-50) U/L Alkaline Phosphatase 60 (38-126) U/L Serum Total Protein 5.7 L (6.3-8.2) g/dL Albumin 2.9 L (3.5-5.0) g/dL 09/26/23 Range/Units 10:33 WBC (4.0-10.5) x10^3/uL RBC (4.1-5.6) x10^6/uL Hgb (12.5-18.0) g/dL Hct (42-50) % MCV (78-100) fL MCH (26-32) pg MCHC (32-36) g/dL RDW (11.5-14.0) % Plt Count (150-450) x10^3/uL MPV (7.5-11.0) fL Sodium (135-145) mmol/L Potassium 3.3 L (3.5-5.1) mmol/L Chloride (98-107) mmol/L Carbon Dioxide (22-30) mmol/L Anion Gap (5-15) MEQ/L BUN (9-20) mg/dL Creatinine (0.66-1.25) mg/dL Estimated GFR ML/MIN Glucose (74-106) mg/dL Calcium (8.4-10.2) mg/dL Magnesium (1.6-2.3) mg/dL Total Bilirubin (0.2-1.3) mg/dL AST (17-59) U/L ALT (0-50) U/L Alkaline Phosphatase (38-126) U/L Serum Total Protein (6.3-8.2) g/dL Albumin (3.5-5.0) g/dL Micro Results-Entire Visit: Microbiology 09/25/23 Unknown Stool Culture Result 1 - Final Stool Not Reportable Stool Culture Result 2 - Final Not Reportable Stool Culture Result 3 - Final Not Reportable Stool Culture Result 4 - Final Not Reportable Stool Culture Organism Suscept - Final Not Reportable Campylobacter Result 1 - Final Not Reportable Campylobacter Result 2 - Final Not Reportable Campylobactor Result 3 - Final Not Reportable Campylobacter Result 4 - Final Not Reportable Campylobactor Susceptibility - Final Not Reportable C. difficile Toxin B Result 1 - Final Not Reportable C. difficile Toxin B Result 2 - Final Not Reportable C. difficile Toxin B Result 3 - Final Not Reportable C. difficile Toxin B Result 4 - Final Not Reportable Antimicrobic Susceptibility - Final Not Reportable Accuchecks Date 09/26/23 Date 09/26/23 Date 09/25/23 Date 09/25/23 Date 09/25/23 Time 08:03 Time 08:03 Time 21:00 Time 16:26 - Radiology Exams Ordered Rad Exams-Entire Visit: Radiology Procedures Category Date Time Status ABDOMEN AND PELVIS W/0 CONTRAS [CT] Stat Exams 09/24/23 14:54 Completed CHEST 1 VIEW (PORTABLE) Stat Exams 09/24/23 14:54 Completed - Procedures and Test Procedures and Tests throughout Hospitalization: Therapy Orders & Screens 09/25/23 08:27 Respiratory Therapy Consult ONCE Comment: Reason For Exam: Diagnosis: dehydration, nausea, vomiting Discharge Exam General Appearance: no apparent distress Neurologic Exam: alert, oriented x 3, cooperative Eye Exam: PERRL Ears, Nose, Throat Exam: normal ENT inspection Neck Exam: normal inspection Respiratory Exam: normal breath sounds, lungs clear Cardiovascular Exam: regular rate/rhythm, normal heart sounds Gastrointestinal/Abdomen Exam: soft, normal bowel sounds Male Genitalia Exam: deferred Rectal Exam: deferred Back Exam: normal inspection Extremity Exam: normal inspection Final Diagnosis/Problem List - Final Discharge Diagnosis/Problem (1) Viral gastroenteritis Current Visit: Yes Status: Resolved Code(s): A08.4 - VIRAL INTESTINAL INFECTION, UNSPECIFIED (2) Dehydration Current Visit: Yes Status: Resolved Code(s): E86.0 - DEHYDRATION (3) Low bicarbonate Current Visit: Yes Status: Resolved Code(s): E87.8 - OTH DISORDERS OF ELECTROLYTE AND FLUID BALANCE, NEC (4) Abdominal pain Current Visit: No Status: Resolved Code(s): R10.9 - UNSPECIFIED ABDOMINAL PAIN (5) Acute on chronic renal failure Current Visit: No Status: Resolved Code(s): N17.9 - ACUTE KIDNEY FAILURE, UNSPECIFIED; N18.9 - CHRONIC KIDNEY DISEASE, UNSPECIFIED (6) Afib Current Visit: No Status: Chronic Code(s): I48.91 - UNSPECIFIED ATRIAL FI BRILLATION (7) HTN (hypertension) Current Visit: No Status: Chronic Code(s): I10 - ESSENTIAL (PRIMARY) H YPERTENSION (8) Hypokalemia Current Visit: Yes Status: Resolved Code(s): E87.6 - HYPOKALEMIA - Discharge Disposition: Home, Self-Care Condition: Stable Prescriptions: Continue Multivitamin [Multivitamins] 1 tab PO DAILY Metoprolol Tartrate 25 mg [Lopressor 25MG Tab] 50 mg PO DAILY Hydrocodone/Acetaminophen [Hydrocodone-Acetamin 10-325 mg] 1 tab PO Q6HPRN PRN PRN Reason: Pain Amlodipine Besylate 5 mg [Norvasc 5 mg] 10 mg PO DAILY Apixaban [Eliquis 5 mg Tablet] 5 mg PO BID Tamsulosin HCl 0.4 mg [Flomax 0.4 MG] 0.4 mg PO DAILY Pregabalin 50 mg [Lyrica 50MG] 150 mg PO BID Albuterol 2.5 mg/3 ml Neb [Proventil 2.5 mg/3 ml Neb] 1 neb IH DAILY NV N PRN PRN Reason: Shortness Of Breath Sucralfate 1 gm [Carafate 1 GM] 1 gm PO QID Ferrous Sulfate 325 mg [Feosol 325 mg] 325 mg PO DAILY Dapagliflozin Propanediol [Farxiga] 10 mg PO DAILY Furosemide 20 mg [Lasix 20 mg] 80 mg PO BID Nitroglycerin 0.4 mg Tablet [Nitrostat 0.4 MG Tablet] 0.4 mg SL UD Allopurinol 300 mg [Zyloprim 300 mg] 300 mg PO DAILY Insulin Glargine/Lixisenatide [Soliqua 100 Unit-33 Mcg/ml Pen] 40 units SQ DAILY Insulin Regular, Human [Novolin R] 6 unit SQ UD Bimatoprost 0.01% [Lumigan 0.01% 2.5 ml] 1 drop OP HS Albuterol/Ipratropium 3ml Neb* [DUONEB 0.5-3 MG/3 ml Neb] 3 ml IH QID PRN PRN Reason: Shortness Of Breath Methylphenidate 5 mg [Ritalin 5 MG] 10 mg PO 1400 PANTOPRAZOLE 40 mg Tablet [Protonix 40MG Tablet] 40 mg PO DAILY Isosorbide Mononitrate [Isosorbide Mononitrate ER] 60 mg PO DAILY Methylphenidate HCl 20 mg PO DAILY Cyanocobalamin 500 Mcg [Vitamin B-12 500 MCG] 1,000 mcg PO DAILY Additional Instructions: [facility] WILL BE INTACT TO START HOME HEALTH SERVICES. THEY WILL CONTACT YOU TO ARRANGE A TIME TO COME SEE YOU. THEIR PHONE NUMBER IS [phone] IF YOU NEED ANYTHING BEFORE THEIR FIRST VISIT Follow up with: JUMA LANE [Primary Care Provider] - 10/03/23 2:30 pm
[2023-09-26 13:07] VITALS: BP 128/60; PULSE 71; TEMP 97.2; O2SAT 95
== END 2023-09-26 15:20 | disposition home health service (06) ==
LOC: ED 14:46 → MED SURG 18:14
PROVIDERS: ADMIT Internal Medicine; ATTEND Internal Medicine
DX: A08.4 Viral intestinal infection, unspecified (principal); E86.0 Dehydration; E87.8 Other disorders of electrolyte and fluid balance, not elsewhere classified; R10.9 Unspecified abdominal pain; N17.9 Acute kidney failure, unspecified; I12.9 Hypertensive chronic kidney disease with stage 1 through stage 4 chronic kidney disease, or unspecified chronic kidney disease; E11.22 Type 2 diabetes mellitus with diabetic chronic kidney disease; N18.9 Chronic kidney disease, unspecified; I48.91 Unspecified atrial fibrillation; E87.6 Hypokalemia; I25.2 Old myocardial infarction; Z79.01 Long term (current) use of anticoagulants; Z79.899 Other long term (current) drug therapy; Z20.828 Contact with and (suspected) exposure to other viral communicable diseases; Z86.16 Personal history of COVID-19; Z95.0 Presence of cardiac pacemaker
CPT/HCPCS: 0241U; 36000; 36415; 71045; 74176; 80053; 80076; 81001; 82947; 83605; 83690; 83735; 84132; 84484; 85025; 85027; 93005; 93268; 96360; 99285; G0378; Q3014; J1817; J2405; A9270-GY

== ENCOUNTER 2024-02-06 11:08 | Emergency (ER) | payer MEDICARE ==
--- NOTE | 2024-02-06 11:21 | ERPHSYRPT ---
- History of Present Illness Time Seen by Provider: 02/06/24 11:10 Source: family Exam Limitations: no limitations, clinical condition Patient Subjective Stated Complaint: tap at this time acute hypertension patient's family states that he took 2 nitro, and then almost passed outparamedics were called to the scene and he was brought here for evaluation. He denies any chest pain at this time. he denies any nausea vomiting or abdominal pain Witnessed: by family Prior Episodes: single episode today Timing/Duration: today Precipitating Factors: none Context: sitting Loss of Consciousness: no loss of consciousness Charcter of event(s): collapsed Allergies/Adverse Reactions: Iodinated Contrast Media [Iodinated Contrast Media - IV Dye] Allergy (Intermediate, Verified 02/06/24 11:13) unknown- hives morphine Allergy (Intermediate, Verified 02/06/24 11:13) confusion and combative hydromorphone HCl [From Dilaudid] Adverse Reaction (Intermediate, Verified 02/06/24 11:13) confusion and combative oxycodone HCl [From OxyContin] Adverse Reaction (Intermediate, Verified 02/06/24 11:13) confusion/ combative Home Medications: Albuterol 2.5 mg/3 ml Neb [Proventil 2.5 mg/3 ml Neb] 2.5 mg IH Q6H PRN PRN 10/31/23 [History] Albuterol Sulfate [Albuterol Sulfate Hfa] 2 puffs IH Q4-6HPRN PRN 10/31/23 [History] Allopurinol 300 mg [Zyloprim 300 mg] 300 mg PO DAILY 10/31/23 [History] Apixaban [Eliquis] 5 mg PO DAILY 10/31/23 [History] Bimatoprost 0.01% [Lumigan 0.01% 2.5 ml] 2.5 ml OP HS 10/31/23 [History] Famotidine 40 mg PO DAILY 10/31/23 [History] Insulin Aspart [NovoLOG Insulin] 6 unit SQ UD 10/31/23 [History] Insulin Glargine/Lixisenatide [Soliqua 100 Unit-33 Mcg/ml Pen] 15 units SQ DAILY 10/31/23 [History] Nitroglycerin 0.4 mg Tablet [Nitrostat 0.4 MG Tablet] 0.4 mg SL Q5MIN PRN MR X 3 PRN 10/31/23 [History] Ondansetron [Ondansetron Odt] 4 mg PO DAILY 10/31/23 [History] PANTOPRAZOLE 40 mg Tablet [Protonix 40MG Tablet] 40 mg PO DAILY 10/31/23 [History] Hx Tetanus, Diphtheria Vaccination/Date Given: Yes Hx Influenza Vaccination/Date Given: Yes Hx Pneumococcal Vaccination/Date Given: Yes Travel Risk - Emerging Infectious Disease Are you exhibiting symptoms associated with any current EIDs: Yes Symptoms: Cough: New Onset - Past Medical History Pertinent Past Medical History: Yes Neurological History: No Pertinent History ENT History: Cataracts, Glaucoma Cardiac History: Hypertension, Myocardial Infarction ([place]), Other Respiratory History: Asthma, COPD, Other Endocrine Medical History: Diabetes Type II Musculoskeletal History: Fractures GI Medical History: GERD, Gallbladder Disease History: Renal Disease, Other Psycho-Social History: Depression Male Reproductive Disorders: Prostate Problems Other Medical History: COVID-19, L Wrist Fracture (1982), Open Heart Surgery (1993), LE fracture (unable to recall which side, ), Low Back Pain, LB surgery (1994 with rods placed) STAGE 3 KIDNEY DISEASE. - Past Surgical History Past Surgical History: Yes Neuro Surgical History: No Pertinent History Cardiac: CABG, Cardiac Catheterization, Cardiac Stent Respiratory: Chest Surgery Gastrointestinal: Appendectomy, Cholecystectomy Genitourinary: No Pertinent History Musculoskeletal: Orthopedic Surgery Male Surgical History: No Pertinent History Other Surgical History: back surgery, fem pop, steriod injection in various joints, carpal tunnel surgery Significant Family History: no pertinent family hx - Social History Smoking Status: Never smoker How long have you smoked: 1975 Exposure to second hand smoke: No Drug Use: none Patient Lives Alone: No () - Social Determinants of Health Will the patient participate in the screening: Yes Do you worry about a steady place to live?: No In the past 12 months,have you had to go without utilities?: No Transportation Issues: No Has anyone in your support network made you feel unsafe?: No Have you or anyone in your house had to go without enough: No - Review of Systems Eyes: No Symptoms Ears, Nose, & Throat: No Symptoms Respiratory: No Symptoms Cardiac: No Symptoms Abdominal/Gastrointestinal: No Symptoms Genitourinary Symptoms: No Symptoms Musculoskeletal: No Symptoms Skin: No Symptoms Neurological: No Symptoms Psychological: No Symptoms Endocrine: No Symptoms Hematologic/Lymphatic: No Symptoms Immunological/Allergic: No Symptoms All Other Systems: Reviewed and Negative Physical Exam - Nursing Vital Signs Nursing Vital Signs: Initial Vital Signs Pulse Rate 87 02/06/24 11:11 Respiratory Rate 16 02/06/24 11:11 Blood Pressure 125/69 02/06/24 11:11 O2 Sat by Pulse Oximetry 97 02/06/24 11:11 Pain Scale Pain Intensity 0 - Corina Coma Scale Best Eye Response ([place]): (4) open spontaneously Best Verbal Response ([place]): (5) oriented Best Motor Response ([place]): (6) obeys commands [place]ina Total: 15 - Physical Exam General Appearance: no apparent distress Ears, Nose, Throat Exam: normal ENT inspection Neck Exam: normal inspection Respiratory: normal breath sounds Cardiovascular: regular rate/rhythm, pulse deficit Gastrointestinal: soft Mental 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, oriented x 3, cooperative Skin Exam: normal color SpO2 Interpretation: normal O2 Delivery: Room Air - Course Nursing assessment & vital signs reviewed: Yes Ordered Tests: Active Orders 24 hr Category Date Time Status HEAD WITHOUT CONTRAST [CT] Stat Exams 02/06/24 11:23 Completed CBC W DIFF Stat Lab 02/06/24 11:45 Completed CMP Stat Lab 02/06/24 11:45 Completed Manual Differential NC Stat Lab 02/06/24 11:45 Completed TROPONIN Q4H Lab 02/06/24 12:30 Completed TROPONIN Q4H Lab 02/06/24 16:30 Ordered TROPONIN Q4H Lab 02/06/24 20:30 Ordered UA W/RFX UR CULTURE Stat Lab 02/06/24 15:06 Completed Lab/Rad Data: Laboratory Result Diagrams 02/06/24 11:45 02/06/24 11:45 Laboratory Results 02/06/24 02/06/24 02/06/24 Range/Units 15:06 12:30 11:45 WBC (4.23-9.07) x10^3/uL RBC (4.63-6.08) x10^6/uL Hgb (13.7-17.5) g/dL Hct (40.1-51.0) % MCV (79.0-92.2) fL MCH (25.7-32.2) pg MCHC (32.3-36.5) g/dL RDW (11.6-14.4) % Plt Count (163-337) x10^3/uL MPV (9.4-12.4) fL Segmented Neutrophils (1.78-5.38) % Band Neutrophils (0.0-2.0) % Lymphocytes (Manual) (24-44) % Monocytes (Manual) (0.0-12.0) % Eosinophils (Manual) (0.00-3.0) % Hypochromia Platelet Estimate (NORMAL) RBC Morphology Sodium 137 (135-145) mmol/L Potassium 4.5 (3.5-5.1) mmol/L Chloride 106 (98-107) mmol/L Carbon Dioxide 25 (22-30) mmol/L Anion Gap 10.7 (5-15) MEQ/L BUN 29 H (9-20) mg/dL Creatinine 1.88 H (0.66-1.25) mg/dL Estimated GFR 35.2 ML/MIN Glucose 196 H (74-106) mg/dL Calcium 9.2 (8.4-10.2) mg/dL Total Bilirubin 0.50 (0.2-1.3) mg/dL AST 41 (17-59) U/L ALT 37 (0-50) U/L Alkaline Phosphatase 61 (38-126) U/L Troponin I < 0.012 (0.000-0.033) ng/mL Serum Total Protein 6.8 (6.3-8.2) g/dL Albumin 3.7 (3.5-5.0) g/dL Urine Color Yellow (Yellow) Urine Appearance Clear (Clear) Urine pH 7.0 (4.6-8.0) Ur Specific [place] 1.020 (1.005-1.030) Urine Protein 30 (Negative) Urine Glucose (UA) >=1000 A (Negative) mg/dL Urine Ketones Negative (Negative) Urine Blood Negative (Negative) Urine Nitrite Negative (Negative) Urine Bilirubin Negative (Negative) Urine Urobilinogen 0.2 (0.2) mg/dL Ur Leukocyte Esterase Negative (Negative) U Hyaline Cast (Auto) NONE SEEN (0-2) /LPF Urine Microscopic RBC 0-2 (0-5) /HPF Urine Microscopic WBC 0-2 (0-5) /HPF Ur Epithelial Cells None Seen (None Seen) /HPF Urine Bacteria None Seen (None Seen) /HPF Urine Culture Reflexed NO (NO) 02/06/24 Range/Units 11:45 WBC 10.2 H (4.23-9.07) x10^3/uL RBC 4.12 L (4.63-6.08) x10^6/uL Hgb 11.3 L (13.7-17.5) g/dL Hct 36.3 L (40.1-51.0) % MCV 88.1 (79.0-92.2) fL MCH 27.4 (25.7-32.2) pg MCHC 31.1 L (32.3-36.5) g/dL RDW 15.4 H (11.6-14.4) % Plt Count 223 (163-337) x10^3/uL MPV 12.1 (9.4-12.4) fL Segmented Neutrophils 87 H (1.78-5.38) % Band Neutrophils 2 (0.0-2.0) % Lymphocytes (Manual) 8 L (24-44) % Monocytes (Manual) 2 (0.0-12.0) % Eosinophils (Manual) 1 (0.00-3.0) % Hypochromia 2+ Platelet Estimate NORMAL (NORMAL) RBC Morphology ABNORMAL Sodium (135-145) mmol/L Potassium (3.5-5.1) mmol/L Chloride (98-107) mmol/L Carbon Dioxide (22-30) mmol/L Anion Gap (5-15) MEQ/L BUN (9-20) mg/dL Creatinine (0.66-1.25) mg/dL Estimated GFR ML/MIN Glucose (74-106) mg/dL Calcium (8.4-10.2) mg/dL Total Bilirubin (0.2-1.3) mg/dL AST (17-59) U/L ALT (0-50) U/L Alkaline Phosphatase (38-126) U/L Troponin I (0.000-0.033) ng/mL Serum Total Protein (6.3-8.2) g/dL Albumin (3.5-5.0) g/dL Urine Color (Yellow) Urine Appearance (Clear) Urine pH (4.6-8.0) Ur Specific [place] (1.005-1.030) Urine Protein (Negative) Urine Glucose (UA) (Negative) mg/dL Urine Ketones (Negative) Urine Blood (Negative) Urine Nitrite (Negative) Urine Bilirubin (Negative) Urine Urobilinogen (0.2) mg/dL Ur Leukocyte Esterase (Negative) U Hyaline Cast (Auto) (0-2) /LPF Urine Microscopic RBC (0-5) /HPF Urine Microscopic WBC (0-5) /HPF Ur Epithelial Cells (None Seen) /HPF Urine Bacteria (None Seen) /HPF Urine Culture Reflexed (NO) - Progress Progress: improved Progress Note: Patient was seen and evaluated for near syncope/syncope after using 2 doses of his nitroglycerin. Labs were obtained and head CT was obtained. these are within normal limits. These are within normal limits patient was observed here in the department, and is back to [facility] He was informed of the need for admission however refuses and wants to go home he is of sound medical decision- making capability 02/06/24 15:59 Counseled pt/family regarding: lab results, need for follow-up Medical Desision Making - Discussion of managment Agreed on:: need for follow-up - Departure Clinical Impression: Syncope Condition: Stable Critical Care Time: No Referrals: JUMA LANE [Primary Care Provider] - Follow up/PCP as directed Instructions: Syncope (Fainting) (DC)
[2024-02-06 11:34] VITALS: TEMP 98.3
[2024-02-06 11:52] LABS: Hematocrit 36.3 % (40.1-51.0); Hemoglobin 11.3 g/dL (13.7-17.5); Mean Cell Volume 88.1 fL (79.0-92.2); Mean Corpuscular Hemoglobin 27.4 pg (25.7-32.2); Mean Corpuscular Hgb Concent. 31.1 g/dL (32.3-36.5); Mean Platelet Volume 12.1 fL (9.4-12.4); Platelet Count 223 x10^3/uL (163-337); Red Blood Count 4.12 x10^6/uL (4.63-6.08); Red Cell Distribution Width 15.4 % (11.6-14.4); White Blood Count 10.2 x10^3/uL (4.23-9.07)
[2024-02-06 12:05] LABS: ALBUMIN 3.7 g/dL (3.5-5.0); ANION GAP 10.7 MEQ/L (5-15); BILIRUBIN,TOTAL 0.5 mg/dL (0.2-1.3); Calcium 9.2 mg/dL (8.4-10.2); Creatinine 1 1.88 mg/dL (0.66-1.25); EST GLOMERULAR FILTRATION RATE 35.2 ML/MIN; Potassium 4.5 mmol/L (3.5-5.1); Total Protein 6.8 g/dL (6.3-8.2)
[2024-02-06 12:59] LABS: BAND 2 % (0.0-2.0); Eosinophil 1 % (0.00-3.0); Hypochromia 2+; Lymphocytes 8 % (24-44); Monocyte 2 % (0.0-12.0); Neutrophils 87 % (1.78-5.38); Platelet Estimate NORMAL (NORMAL); Total Cells Counted 100
--- NOTE | 2024-02-06 13:02 | XRAY ---
Indication: Syncope. Multiple contiguous axial images obtained of the head without contrast. Comparison: May 27, 2023 Abad stable age-appropriate global atrophy, moderate periventricular degenerative micro-ischemia bilaterally, and remote lacunar infarct right internal capsule. No acute intracranial hemorrhage, abnormal extra-axial fluid collection, or mass effect. Fourth ventricle is midline without hydrocephalus. Bony calvarium intact. Visualized paranasal sinuses and mastoid air cells are clear. Impression: Grossly stable nonacute senile brain with remote lacunar infarct right internal capsule.
[2024-02-06 14:36] VITALS: BP 136/79
[2024-02-06 15:14] LABS: Appearance Clear (Clear); Bacteria None Seen /HPF (None Seen); Bilirubin Negative (Negative); Blood Negative (Negative); Epithelial Cells None Seen /HPF (None Seen); Glucose, Urine >=1000 mg/dL (Negative); Hyaline Casts NONE SEEN /LPF (0-2); Ketones Negative (Negative); Leukocyte Esterase Negative (Negative); Nitrite Negative (Negative); Protein,Urine Dip 30 (Negative); RBC 0-2 /HPF (0-5); Urobilinogen 0.2 mg/dL (0.2); WBC 0-2 /HPF (0-5)
[2024-02-06 15:17] LABS: ADD URINE CULTURE? NO (NO)
[2024-02-06 16:09] VITALS: PULSE 78; RESP 18; O2SAT 95
== END 2024-02-06 16:12 | disposition home or self-care (01) ==
LOC: ED 11:08
DX: R55 Syncope and collapse (principal); I12.9 Hypertensive chronic kidney disease with stage 1 through stage 4 chronic kidney disease, or unspecified chronic kidney disease; E11.22 Type 2 diabetes mellitus with diabetic chronic kidney disease; N18.30 Chronic kidney disease, stage 3 unspecified; Z79.4 Long term (current) use of insulin; Z79.01 Long term (current) use of anticoagulants; Z79.899 Other long term (current) drug therapy
CPT/HCPCS: 36415; 70450; 80053; 81001; 84484; 85025; 93005; 99284

== ENCOUNTER 2024-04-23 08:13 | Emergency (ER) | payer MEDICARE ==
--- NOTE | 2024-04-23 08:29 | ERPHSYRPT ---
- History of Present Illness Time Seen by Provider: 04/23/24 08:29 Source: patient, family Exam Limitations: no limitations Physician History: This is an 84-year-old white male patient who arrives by private vehicle accompanied by his and is a patient of Dr. Heard with a complaint of neck pain for several days. He did not suffer an acute fall or traumatic injury to the site. He is having difficulty moving his head neck to and fro secondary to pain he has no numbness in his arms. Patient denies chest pain. Patient denies shortness of breath. He has no visual changes. Patient is on Eliquis. He has a history of insulin-dependent diabetes, gastroesophageal reflux disease, hypertension, asthma/COPD, type 2 diabetes, stage III renal disease, coronary artery disease (CABG/cardiac stent) and peripheral vascular disease. Severity: moderate Modifying Factors: Improves With: movement Associated Symptoms: denies symptoms Allergies/Adverse Reactions: Iodinated Contrast Media [Iodinated Contrast Media - IV Dye] Allergy (Intermediate, Verified 04/23/24 08:28) unknown- hives morphine Allergy (Intermediate, Verified 04/23/24 08:28) confusion and combative hydromorphone HCl [From Dilaudid] Adverse Reaction (Intermediate, Verified 04/23/24 08:28) confusion and combative oxycodone HCl [From OxyContin] Adverse Reaction (Intermediate, Verified 04/23/24 08:28) confusion/ combative Home Medications: Albuterol 2.5 mg/3 ml Neb [Proventil 2.5 mg/3 ml Neb] 2.5 mg IH Q6H PRN PRN 10/31/23 [History] Albuterol Sulfate [Albuterol Sulfate Hfa] 2 puffs IH Q4-6HPRN PRN 10/31/23 [History] Allopurinol 300 mg [Zyloprim 300 mg] 300 mg PO DAILY 10/31/23 [History] Apixaban [Eliquis] 5 mg PO DAILY 10/31/23 [History] Bimatoprost 0.01% [Lumigan 0.01% 2.5 ml] 2.5 ml OP HS 10/31/23 [History] Famotidine 40 mg PO DAILY 10/31/23 [History] Insulin Aspart [NovoLOG Insulin] 6 unit SQ UD 10/31/23 [History] Insulin Glargine/Lixisenatide [Soliqua 100 Unit-33 Mcg/ml Pen] 15 units SQ DAILY 10/31/23 [History] Nitroglycerin 0.4 mg Tablet [Nitrostat 0.4 MG Tablet] 0.4 mg SL Q5MIN PRN MR X 3 PRN 10/31/23 [History] Ondansetron [Ondansetron Odt] 4 mg PO DAILY 10/31/23 [History] PANTOPRAZOLE 40 mg Tablet [Protonix 40MG Tablet] 40 mg PO DAILY 10/31/23 [History] Hx Tetanus, Diphtheria Vaccination/Date Given: Yes Hx Influenza Vaccination/Date Given: Yes Hx Pneumococcal Vaccination/Date Given: Yes Travel Risk - International Travel Have you traveled outside of the country in past 3 weeks: No - Emerging Infectious Disease Are you exhibiting symptoms associated with any current EIDs: Yes Symptoms: Cough: New Onset - Review of Systems Constitutional: No Symptoms Eyes: No Symptoms Ears, Nose, & Throat: No Symptoms Respiratory: No Symptoms Cardiac: No Symptoms Abdominal/Gastrointestinal: No Symptoms Genitourinary Symptoms: No Symptoms Musculoskeletal: Neck Pain, No Injury Skin: No Symptoms Neurological: No Symptoms Psychological: No Symptoms Endocrine: No Symptoms Hematologic/Lymphatic: No Symptoms Immunological/Allergic: No Symptoms All Other Systems: Reviewed and Negative - Past Medical History Pertinent Past Medical History: Yes Neurological History: No Pertinent History ENT History: Cataracts, Glaucoma Cardiac History: Hypertension, Myocardial Infarction ([place]), Other Respiratory History: Asthma, COPD, Other Endocrine Medical History: Diabetes Type II Musculoskeletal History: Fractures GI Medical History: GERD, Gallbladder Disease History: Renal Disease, Other Psycho-Social History: Depression Male Reproductive Disorders: Prostate Problems Other Medical History: COVID-19, L Wrist Fracture (1982), Open Heart Surgery (1993), LE fracture (unable to recall which side, 1959's), Low Back Pain, LB surgery (1994 with rods placed) STAGE 3 KIDNEY DISEASE. - Past Surgical History Past Surgical History: Yes Neuro Surgical History: No Pertinent History Cardiac: CABG, Cardiac Catheterization, Cardiac Stent Respiratory: Chest Surgery Gastrointestinal: Appendectomy, Cholecystectomy Genitourinary: No Pertinent History Musculoskeletal: Orthopedic Surgery Male Surgical History: No Pertinent History Other Surgical History: back surgery, fem pop, steriod injection in various joints, carpal tunnel surgery Significant Family History: no pertinent family hx - Social History Smoking Status: Never smoker How long have you smoked: 1975 Exposure to second hand smoke: No Drug Use: none Patient Lives Alone: No () - Social Determinants of Health Will the patient participate in the screening: Yes Do you worry about a steady place to live?: No In the past 12 months,have you had to go without utilities?: No Transportation Issues: No Has anyone in your support network made you feel unsafe?: No Have you or anyone in your house had to go without enough: No - Nursing Vital Signs Nursing Vital Signs: Initial Vital Signs Temperature 98.6 F 04/23/24 08:30 Pulse Rate 88 04/23/24 08:30 Respiratory Rate 16 04/23/24 08:30 Blood Pressure 142/69 04/23/24 08:30 O2 Sat by Pulse Oximetry 94 L 04/23/24 08:30 Pain Scale Pain Intensity 4 - Physical Exam General Appearance: no apparent distress, alert, anxiety Eye Exam: PERRL/EOMI, eyes nml inspection Ears, Nose, Throat Exam: normal ENT inspection, moist mucous membranes Neck Exam: normal inspection, full range of motion, other (Tenderness bilateral paraspinous muscles cervical level), No meningismus, No Brudzinski, No Kernig's Respiratory Exam: normal breath sounds, lungs clear, airway intact, No chest tenderness, No respiratory distress Cardiovascular Exam: regular rate/rhythm, normal heart sounds, normal peripheral pulses Gastrointestinal/Abdomen Exam: soft, normal bowel sounds, No tenderness Rectal Exam: not done Back Exam: normal inspection, normal range of motion, No CVA tenderness, No vertebral tenderness Extremity Exam: normal inspection, normal range of motion, pelvis stable Neurologic Exam: alert, oriented x 3, cooperative, 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 as tested, sensation nml Skin Exam: normal color, warm, dry Lymphatic Exam: No adenopathy SpO2 Interpretation: normal O2 Delivery: Room Air - Course Nursing assessment & vital signs reviewed: Yes Ordered Tests: Active Orders 24 hr Category Date Time Status CERVICAL SPINE WO CONTRAST [CT] Stat Exams 04/23/24 08:57 Completed - Progress Progress: improved, pain not gone completely Progress Note: 04/23/24 10:22 My medical decision making and the assignment of low to moderate complexity of this patient's medical issue today is based on review of the patient's past medical history, review the patient's medication list, reviewed patient drug a llergy list, history present illness and physical findings on examination. The workup in this patient includes CT scan of the cervical spine. Differential diagnosis includes was not limited to fracture and/or subluxation of cervical spine, torticollis, musculoskeletal pain 04/23/24 10:23 04/23/24 10:[address] scan of the cervical spine was interpreted by the radiologist and I reviewed the impression. The impression states chronic findings osteopenia, multilevel spondylosis, bilateral carotid calcifications. No acute findings Counseled pt/family regarding: diagnosis, need for follow-up, rad results Medical Desision Making - Independent Historian Additional History obtained from: Spouse - Diagnostic Testing Diagnostic test were ordered, analyzed, and reviewed by me: Yes Radiological Interpretation: Reviewed by me, Teleradiologist Report - Risk of complications The pt has a mod risk of morbidity or mortality based on: Need for prescription drug management - Departure Departure Disposition: Home Clinical Impression: Neck pain, Degenerative disc disease Condition: Stable Critical Care Time: No Referrals: JUMA HEARD [Primary Care Provider] - Follow up/PCP as directed Additional Instructions: Continue your Seanor as prescribed. In addition use the 2 new prescriptions to help in controlling your neck pain. Continue your other medications as prescribed. Call your primary care provider office today, 04/23/2024, to make arrangements for follow-up appointment to be seen in the next 2 to 3 days Prescriptions: Prednisone 10 mg [Deltasone 10 mg] 10 mg PO TID #12 tablet Orphenadrine Citrate 100 mg [Norflex 100 MG Tablet] 100 mg PO BID #10 tab
[2024-04-23 08:31] VITALS: TEMP 98.6
[2024-04-23 09:48] VITALS: BP 147/70
--- NOTE | 2024-04-23 10:39 | XRAY ---
Indication: Neck pain over one week. No known injury. Multiple contiguous axial images obtained through the cervical spine. Sagittal and coronal reformatted images obtained. Comparison: None Osseous structures demineralized consistent with patient's age. Axial images negative for acute fracture, suspicious bony lesions, or spinal canal stenosis. There is mild/moderate multilevel degenerative spondylosis greatest at C4-C5 level. Sagittal and coronal reformatted images demonstrate normal alignment with C4-C5 disc space narrowing. No acute compression fracture, subluxation, or jumped facet. Normal appearing craniocervical junction. Visualized noncontrasted soft tissues demonstrates scattered moderate bilateral carotid calcifications. Basal brain unremarkable. Lung apices demonstrates mild pulmonary emphysema. Impression: Chronic findings including osteopenia, multilevel degenerative spondylosis greatest C4-C5, bilateral carotid calcifications, and pulmonary emphysema. No acute findings.
[2024-04-23] MEDS ORDERED: Norflex 60 MG/2 ML ONE (11:00)
[2024-04-23] MEDS ORDERED: solu-MEDROL ONE (11:00)
[2024-04-23] MEDS ORDERED: NORCO 5/325 MG ONE (11:00)
[2024-04-23] MEDS: NORCO 5/325 MG PO ONE (11:05)
[2024-04-23] MEDS: Norflex 60 MG/2 ML IM ONE (11:09)
[2024-04-23] MEDS: solu-MEDROL 125 MG, Sterile H2O 10 ml 2 ML IM ONE (11:10)
[2024-04-23 11:54] VITALS: PULSE 56; RESP 18; O2SAT 98
== END 2024-04-23 11:56 | disposition home or self-care (01) ==
LOC: ED 08:13
DX: M50.31 Other cervical disc degeneration, high cervical region (principal); Z79.899 Other long term (current) drug therapy; Z79.01 Long term (current) use of anticoagulants
CPT/HCPCS: 72125; 96372; 99283; 99284; J2360; J2919; A9270-GY

== ENCOUNTER 2024-06-06 08:19 | Emergency (ER) | payer MEDICARE, OTHER ==
[2024-06-06 08:28] VITALS: TEMP 97.5
[2024-06-06 08:39] VITALS: RESP 16
[2024-06-06] MEDS ORDERED: Zofran 4 MG/2 ML VIAL ONE (08:42)
[2024-06-06] MEDS ORDERED: BABY ASPIRIN 81 MG CHEW ONE (08:43)
[2024-06-06] MEDS ORDERED: Sodium Chloride 0.9% 1000 ML 1,000 ML ONE (08:43)
[2024-06-06] MEDS ORDERED: NITRO-BID 2% UD PACKETS ONE (08:43)
[2024-06-06] MEDS: NITRO-BID 2% UD PACKETS TOP ONE (08:44)
[2024-06-06] MEDS: Sodium Chloride 0.9% 1000 ML 1,000 ML IV SCH (08:44)
[2024-06-06] MEDS: Zofran 4 MG/2 ML VIAL IV ONE (08:44)
[2024-06-06] MEDS: BABY ASPIRIN 81 MG CHEW PO ONE (08:44)
--- NOTE | 2024-06-06 08:49 | ERPHSYRPT ---
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 He was in his usual state of health started having a chest pain on the left side of the chest she was brought into the emergency room by his he took 3 nitro without any help so he came to the emergency room. He denies any shortness of breath nausea vomiting abdominal pain headache or dizziness. Timing/Duration: today Activities at Onset: none Location: substernal Chest Pain Radiation: no radiation Severity of Pain-Max: moderate Severity of Pain-Current: moderate Modifying Factors: Improves With: nothing Associated Symptoms: denies symptoms Nitro Today/Relief: 0.4 mg x 3 Aspirin Treatment Today: 81 mg x 1 Body Map: 1 - area of pain Allergies/Adverse Reactions: Iodinated Contrast Media [Iodinated Contrast Media - IV Dye] Allergy (Intermediate, Verified 06/06/24 08:26) unknown- hives morphine Allergy (Intermediate, Verified 06/06/24 08:26) confusion and combative hydromorphone HCl [From Dilaudid] Adverse Reaction (Intermediate, Verified 06/06/24 08:26) confusion and combative oxycodone HCl [From OxyContin] Adverse Reaction (Intermediate, Verified 06/06/24 08:26) confusion/ combative Home Medications: Albuterol 2.5 mg/3 ml Neb [Proventil 2.5 mg/3 ml Neb] 2.5 mg IH Q6H PRN PRN 10/31/23 [History] Albuterol Sulfate [Albuterol Sulfate Hfa] 2 puffs IH Q4-6HPRN PRN 05/20/24 [History] Allopurinol 300 mg [Zyloprim 300 mg] 300 mg PO DAILY 10/31/23 [History] Apixaban [Eliquis] 5 mg PO DAILY 10/31/23 [History] Bimatoprost 0.01% [Lumigan 0.01% 2.5 ml] 2.5 ml OP HS 10/31/23 [History] Famotidine 40 mg PO DAILY 10/31/23 [History] Insulin Aspart [NovoLOG Insulin] 6 unit SQ UD 10/31/23 [History] Insulin Glargine/Lixisenatide [Soliqua 100 Unit-33 Mcg/ml Pen] 15 units SQ DAILY 10/31/23 [History] Nitroglycerin 0.4 mg Tablet [Nitrostat 0.4 MG Tablet] 0.4 mg SL Q5MIN PRN MR X 3 PRN 10/31/23 [History] Ondansetron [Ondansetron Odt] 4 mg PO DAILY 10/31/23 [History] PANTOPRAZOLE 40 mg Tablet [Protonix 40MG Tablet] 40 mg PO DAILY 10/31/23 [History] Isosorbide Mononitrate 40 mg PO UD 04/24/24 [History] Hx Tetanus, Diphtheria Vaccination/Date Given: Yes Hx Influenza Vaccination/Date Given: Yes Hx Pneumococcal Vaccination/Date Given: Yes Immunizations Up to Date: Yes Travel Risk - International Travel Have you traveled outside of the country in past 3 weeks: No - Emerging Infectious Disease Are you exhibiting symptoms associated with any current EIDs: No Symptoms: Cough: New Onset - Review of Systems Constitutional: No Fever, No Chills Eyes: No Symptoms Ears, Nose, & Throat: No Symptoms Respiratory: No Cough, No Dyspnea Cardiac: Chest Pain, No Edema, No Syncope Abdominal/Gastrointestinal: No Abdominal Pain, No Nausea, No Vomiting, No Diarrhea Genitourinary Symptoms: No Dysuria Musculoskeletal: No Back Pain, No Neck Pain Skin: No Rash Neurological: No Dizziness, No Focal Weakness, No Sensory Changes Psychological: No Symptoms Endocrine: No Symptoms All Other Systems: Reviewed and Negative - Past Medical History Pertinent Past Medical History: Yes Neurological History: No Pertinent History ENT History: Cataracts, Glaucoma Cardiac History: Hypertension, Myocardial Infarction ([place]), Other Respiratory History: Asthma, COPD, Other Endocrine Medical History: Diabetes Type II Musculoskeletal History: Fractures GI Medical History: GERD, Gallbladder Disease History: Renal Disease, Other Psycho-Social History: Depression Male Reproductive Disorders: Prostate Problems Other Medical History: COVID-19, L Wrist Fracture (1982), Open Heart Surgery (1993), LE fracture (unable to recall which side, 1959'), Low Back Pain, LB surgery (1994 with rods placed) STAGE 3 KIDNEY DISEASE. - Past Surgical History Past Surgical History: Yes Neuro Surgical History: No Pertinent History Cardiac: CABG, Cardiac Catheterization, Cardiac Stent Respiratory: Chest Surgery Gastrointestinal: Appendectomy, Cholecystectomy Genitourinary: No Pertinent History Musculoskeletal: Orthopedic Surgery Male Surgical History: No Pertinent History Other Surgical History: back surgery, fem pop, steriod injection in various joints, carpal tunnel surgery Significant Family History: no pertinent family hx - Social History Smoking Status: Former smoker How long have you smoked: 1975 Exposure to second hand smoke: No Drug Use: none Patient Lives Alone: No () - Social Determinants of Health Will the patient participate in the screening: Yes Do you worry about a steady place to live?: No Do you have any problems with any of the following?: No known problems In the past 12 months,have you had to go without utilities?: No Transportation Issues: No Has anyone in your support network made you feel unsafe?: No Have you or anyone in your house had to go without enough: No - Nursing Vital Signs Nursing Vital Signs: Initial Vital Signs Temperature 97.5 F 06/06/24 08:27 Pulse Rate 88 06/06/24 08:27 Respiratory Rate 18 06/06/24 08:27 Blood Pressure 145/83 06/06/24 08:27 O2 Sat by Pulse Oximetry 97 06/06/24 08:27 Pain Scale Pain Intensity 8 - Physical Exam General Appearance: no apparent distress, alert Eye Exam: PERRL/EOMI, eyes nml inspection Ears, Nose, Throat Exam: normal ENT inspection, moist mucous membranes Neck Exam: normal inspection, non-tender, supple, full range of motion Respiratory Exam: normal breath sounds, lungs clear, No respiratory distress Cardiovascular Exam: regular rate/rhythm, normal heart sounds Gastrointestinal/Abdomen Exam: soft, No tenderness, No mass Back Exam: normal inspection, No CVA tenderness, No vertebral tenderness Extremity Exam: normal inspection, normal range of motion Neurologic Exam: alert, oriented x 3, cooperative, normal mood/affect, sensation nml, No motor deficits Skin Exam: normal color, warm, dry SpO2: 99 - Course Nursing assessment & vital signs reviewed: Yes EKG Interpreted by Me: Sinus Rhythm, Non-specific ST Changes Rhythm Strip: Normal Sinus Rhythm - Radiology Exams Chest X-ray Interpretation: Interpreted by me, Reviewed by me, No Pneumonia Ordered Tests: Active Orders 24 hr Category Date Time Status Neonatal Social Worker STAT Care 06/06/24 08:32 Active EKG-ER Only STAT Care 06/06/24 08:31 Active IV Insertion STAT Care 06/06/24 08:31 Active Oxygen-ED Only Nasal Cannula 2 lpm Care 06/06/24 08:31 Active CHEST 1 VIEW (PORTABLE) Stat Exams 06/06/24 08:32 Taken CBC W DIFF Stat Lab 06/06/24 08:35 Completed CMP Stat Lab 06/06/24 08:35 Completed NT PRO BNPII Stat Lab 06/06/24 08:35 Completed PROTIME WITH INR Stat Lab 06/06/24 08:35 Completed TROPONIN Q4H Lab 06/06/24 08:35 Completed TROPONIN Q4H Lab 06/06/24 12:45 Ordered TROPONIN Q4H Lab 06/06/24 16:45 Ordered Medication Summary Generic Name Dose Route Start Last Admin Trade Name Freq PRN Reason Stop Dose Admin Sodium Chloride 1,000 mls @ 100 mls/hr 06/06/24 08:45 06/06/24 08:44 Sodium Chloride 0.9% 1000 Ml IV 07/06/24 08:44 100 mls/hr .Q10H RUTH Administration Discontinued Medications Generic Name Dose Route Start Last Admin Trade Name Freq PRN Reason Stop Dose Admin Aspirin 324 mg 06/06/24 08:31 06/06/24 08:44 Aspirin 81 Mg Tab.Chew PO 06/06/24 08:32 324 mg STAT ONE Administration Aspirin Confirm 06/06/24 08:43 Aspirin 81 Mg Tab.Chew Administered 06/06/24 08:44 Dose 324 mg .ROUTE .STK-MED ONE Nitroglycerin 1 gm 06/06/24 08:31 06/06/24 08:44 Nitroglycerin 1 Gm Packet TOP 06/06/24 08:32 1 gm STAT ONE Administration Nitroglycerin Confirm 06/06/24 08:43 Nitroglycerin 1 Gm Packet Administered 06/06/24 08:44 Dose 1 gm .ROUTE .STK-MED ONE Ondansetron HCl 4 mg 06/06/24 08:31 06/06/24 08:44 Ondansetron Hcl 4 Mg/2 Ml Vial IV 06/06/24 08:32 4 mg STAT ONE Administration Ondansetron HCl Confirm 06/06/24 08:42 Ondansetron Hcl 4 Mg/2 Ml Vial Administered 06/06/24 08:43 Dose 4 mg .ROUTE .STK-MED ONE Lab/Rad Data: Laboratory Result Diagrams 06/06/24 08:35 06/06/24 08:35 Laboratory Results 06/06/24 06/06/24 06/06/24 Range/Units 08:35 08:35 08:35 WBC (4.23-9.07) x10^3/uL RBC (4.63-6.08) x10^6/uL Hgb (13.7-17.5) g/dL Hct (40.1-51.0) % MCV (79.0-92.2) fL MCH (25.7-32.2) pg MCHC (32.3-36.5) g/dL RDW (11.6-14.4) % Plt Count (163-337) x10^3/uL MPV (9.4-12.4) fL Gran % (34.0-67.9) % Immature Gran % (Auto) (0.001-0.429) % Nucleat RBC Rel Count (0.00-0.2) % Eos # (Auto) (0.04-0.54) x10^3/uL Immature Gran # (Auto) (0.001-0.031) x10^3u/L Absolute Lymphs (auto) (1.32-3.57) x10^3/uL Absolute Monos (auto) (0.30-0.82) x10^3/uL Absolute Nucleated RBC (0.00-0.012) x10^3u/L Lymphocytes % (21.8-53.1) % Monocytes % (5.3-12.2) % Eosinophils % (0.8-7.0) % Basophils % (0.2-1.2) % Absolute Granulocytes (1.78-5.38) x10^3/uL Basophils # (0.01-0.08) x10^3/uL PT 10.3 (9.4-12.5) SECONDS INR 0.94 (0.8-3.0) Sodium 135 (135-145) mmol/L Potassium 4.7 (3.5-5.1) mmol/L Chloride 104 (98-107) mmol/L Carbon Dioxide 23 (22-30) mmol/L Anion Gap 12.6 (5-15) MEQ/L BUN 32 H (9-20) mg/dL Creatinine 2.02 H (0.66-1.25) mg/dL Estimated GFR 32.1 ML/MIN Glucose 374 H (74-106) mg/dL Calcium 9.3 (8.4-10.2) mg/dL Total Bilirubin 0.30 (0.2-1.3) mg/dL AST 25 (17-59) U/L ALT 19 (0-50) U/L Alkaline Phosphatase 70 (38-126) U/L Troponin I 0.014 (0.000-0.033) ng/mL NT-Pro-B Natriuret Pep 1530 (<300) pg/mL Serum Total Protein 6.0 L (6.3-8.2) g/dL Albumin 3.4 L (3.5-5.0) g/dL 06/06/24 Range/Units 08:35 WBC 7.9 (4.23-9.07) x10^3/uL RBC 3.54 L (4.63-6.08) x10^6/uL Hgb 9.5 L (13.7-17.5) g/dL Hct 31.1 L (40.1-51.0) % MCV 87.9 (79.0-92.2) fL MCH 26.8 (25.7-32.2) pg MCHC 30.5 L (32.3-36.5) g/dL RDW 16.4 H (11.6-14.4) % Plt Count 225 (163-337) x10^3/uL MPV 11.8 (9.4-12.4) fL Gran % 62.0 (34.0-67.9) % Immature Gran % (Auto) 1.8 H (0.001-0.429) % Nucleat RBC Rel Count 0.0 (0.00-0.2) % Eos # (Auto) 0.46 (0.04-0.54) x10^3/uL Immature Gran # (Auto) 0.14 H (0.001-0.031) x10^3u/L Absolute Lymphs (auto) 1.77 (1.32-3.57) x10^3/uL Absolute Monos (auto) 0.45 (0.30-0.82) x10^3/uL Absolute Nucleated RBC 0.00 (0.00-0.012) x10^3u/L Lymphocytes % 22.3 (21.8-53.1) % Monocytes % 5.7 (5.3-12.2) % Eosinophils % 5.8 (0.8-7.0) % Basophils % 2.4 H (0.2-1.2) % Absolute Granulocytes 4.91 (1.78-5.38) x10^3/uL Basophils # 0.19 H (0.01-0.08) x10^3/uL PT (9.4-12.5) SECONDS INR (0.8-3.0) Sodium (135-145) mmol/L Potassium (3.5-5.1) mmol/L Chloride (98-107) mmol/L Carbon Dioxide (22-30) mmol/L Anion Gap (5-15) MEQ/L BUN (9-20) mg/dL Creatinine (0.66-1.25) mg/dL Estimated GFR ML/MIN Glucose (74-106) mg/dL Calcium (8.4-10.2) mg/dL Total Bilirubin (0.2-1.3) mg/dL AST (17-59) U/L ALT (0-50) U/L Alkaline Phosphatase (38-126) U/L Troponin I (0.000-0.033) ng/mL NT-Pro-B Natriuret Pep (<300) pg/mL Serum Total Protein (6.3-8.2) g/dL Albumin (3.5-5.0) g/dL - Progress Progress: improved Air Movement: good Progress Note: 06/06/24 09:55 Patient remained chest pain-free during ER visit. All the labs reported negative. Patient hemoglobin is 9.5 which is a chronic feature. Patient and h is informed about all the lab reports. Blood Culture(s) Obtained: No Antibiotics given: No Counseled pt/family regarding: lab results, diagnosis, need for follow-up, rad results Medical Desision Making - Independent Historian Additional History obtained from: Spouse - Diagnostic Testing Diagnostic test were ordered, analyzed, and reviewed by me: Yes Radiological Interpretation: Interpreted by me, Reviewed by me - Risk of complications Low Risk: Low risk of morbidity from additional dx testing or treatment - Departure Departure Disposition: Home Clinical Impression: Chest pain due to CAD, Renal insufficiency Condition: Stable Critical Care Time: No Referrals: JUMA LANE [Primary Care Provider] - Follow up/PCP as directed Instructions: Chest Pain (DC) Additional Instructions: Discharge/Care Plan VALENTIN JANSEN was seen on 06/06/24 in the Emergency Room. The patient was counseled regarding Diagnosis,Lab results, Imaging studies, need for follow up and when to return to the Emergency Room. Prescriptions given: Discharge Note I have spoken with the patient and/or caregivers. I have explained the patient's condition, diagnosis and treatment plan based on the information available to me at this time. I have answered the patient's and/or caregiver's questions and addressed any concerns. The patient and/or caregivers have as good understanding of the patient's diagnosis, condition and treatment plan as can be expected at this point. The vital signs have been stable. The patient's condition is stable and appropriate for discharge from the emergency department. The patient will pursue further outpatient evaluation with the primary care physician or other designated or consulting physician as outlined in the [facility] instructions. The patient and/or caregivers are agreeable to this plan of care and follow-up instructions have been explained in detail. The patient and/or caregivers have received these instruction. The patient/and or caregivers are aware that any significant change in condition or worsening of symptoms should prompt an immediate return to this or the closest emergency department or call 911. VALENTIN JANSEN was seen on 06/06/24 n the Emergency Room. At that time you were treated for an emergent condition, during your visit Laboratory, Radiology and/or other procedures may have been ordered. It is very important that you follow-up with your Primary Care Physician JUMA LANE within the next 24-48 hours to review your Emergency Room visit and the final results of testing that was ordered. Some test results such as Urine Cultures, Blood Cultures, and other cultures if ordered will not be finalized for 24-48 hours. If you do not have a Primary Care Provider please call the medical records department at [phone] to obtain a copy of your results or you may sign into our patient portal to obtain these results by visiting us @ [email or web address] and completing the following steps: 1. Click on the Patient Portal link 2. Click the Patient Self Enrollment Link to complete the enrollment form and entering your 3. Once the enrollment form is completed you will receive an email with a temporary ID and password at the email address you provided. 4. Next choose a user name and password. Your user name must be at least 4 characters long and your password must be at least 4 characters long. 5. Choose a security question from the list and provide your answer to the question. If you already have signed into the Health Portal you may access your Health Care Information 03/01 by the following steps: 1. Login to our website @ [email or web address] 2. Enter your original user name and password. FAQS The [facility] Health Portal is an online tool that contains your Lab Results, Radiology Reports, Visit History, Discharge Instructions and Health Summary Lab and Radiology Results will not be available for 72 hours on the portal. The Portal is a secure site, passwords are encryted and URLs are re-written so they cannot be copied and pasted. You and authorized family members are the only ones who can access your Portal. Also there is a timeout feature that protects your information if you leave the Portal page open. If you have technical difficulty please use the Contact Us link on the page this will allow you to submit any questions you have regarding the Portal or you may contact the Medical Record Department at [phone].
[2024-06-06 08:50] LABS: Absolute Neutrophil Ct (ANC) 4.91 x10^3/uL (1.78-5.38); BASOPHIL % 2.4 % (0.2-1.2); Basophil (Absolute #) 0.19 x10^3/uL (0.01-0.08); Eosinophil % 5.8 % (0.8-7.0); Eosinophil (Absolute #) 0.46 x10^3/uL (0.04-0.54); Hematocrit 31.1 % (40.1-51.0); Hemoglobin 9.5 g/dL (13.7-17.5); IMMATURE GRAN # 0.14 x10^3u/L (0.001-0.031); IMMATURE GRAN % 1.8 % (0.001-0.429); Lymphocyte (Absolute #) 1.77 x10^3/uL (1.32-3.57); Lymphocytes % 22.3 % (21.8-53.1); Mean Cell Volume 87.9 fL (79.0-92.2); Mean Corpuscular Hemoglobin 26.8 pg (25.7-32.2); Mean Corpuscular Hgb Concent. 30.5 g/dL (32.3-36.5); Mean Platelet Volume 11.8 fL (9.4-12.4); Monocyte (Absolute #) 0.45 x10^3/uL (0.30-0.82); Monocytes % 5.7 % (5.3-12.2); Platelet Count 225 x10^3/uL (163-337); Red Blood Count 3.54 x10^6/uL (4.63-6.08); Red Cell Distribution Width 16.4 % (11.6-14.4); White Blood Count 7.9 x10^3/uL (4.23-9.07)
[2024-06-06 09:05] LABS: INR 0.94 (0.8-3.0); PROTIME 10.3 SECONDS (9.4-12.5)
[2024-06-06 09:19] LABS: ALBUMIN 3.4 g/dL (3.5-5.0); ANION GAP 12.6 MEQ/L (5-15); BILIRUBIN,TOTAL 0.3 mg/dL (0.2-1.3); Calcium 9.3 mg/dL (8.4-10.2); Creatinine 1 2.02 mg/dL (0.66-1.25); EST GLOMERULAR FILTRATION RATE 32.1 ML/MIN; Potassium 4.7 mmol/L (3.5-5.1)
[2024-06-06 10:23] VITALS: BP 149/83; PULSE 82; O2SAT 97
--- NOTE | 2024-06-06 18:07 | XRAY ---
Indication: Chest pain. Comparison: September 24, 2023 Portable chest again demonstrates minimal bibasilar subsegmental atelectasis/scarring and a few tiny bilateral calcified granulomas. No focal infiltrate, consolidation, or large effusion. Heart not enlarged again with CABG. Bony thorax intact again with osteopenia and degenerative changes. Impression: Continued nonacute chest with chronic features.
== END 2024-06-06 10:23 | disposition home or self-care (01) ==
LOC: ED 08:19
DX: I25.810 Atherosclerosis of coronary artery bypass graft(s) without angina pectoris (principal); R07.9 Chest pain, unspecified; Z95.1 Presence of aortocoronary bypass graft; N28.9 Disorder of kidney and ureter, unspecified; Z79.899 Other long term (current) drug therapy; Z79.01 Long term (current) use of anticoagulants
CPT/HCPCS: 36415; 71045; 80053; 83880; 84484; 85025; 85610; 93005; 93041; 96374; 99284; 99285; J2405; A9270-GY